=== PATIENT | female | born 1970 | race Caucasian/White ===

== ENCOUNTER 2016-12-26 17:42 | Inpatient (IN) | payer OTHER ==
[~2016-12-26] VITALS: Ht 152.4 cm; Wt 41.2 kg
[~2016-12-26 17:42] MED LIST: CPR500 PO; DIME50TA49 PO; FLV1 PO; IBUP-1050 PO; NCDT21 TD
[2016-12-26 18:53] LABS: HEMATOCRIT 34.7 % (37-47); MEAN CELL VOLUME 94.6 fL (80-100); MEAN CORPUSCULAR HEMOGLOBIN 32.4 pg (25-34); MEAN CORPUSCULAR HGB CONC 34.3 g/dl (32-36); MEAN PLATELET VOLUME 9.9 fL (7.4-10.4); PLATELET COUNT 425 K/uL (130-400); RED BLOOD COUNT 3.67 M/uL (4.2-5.4); WHITE BLOOD COUNT 19.73 K/uL (4.8-10.8)
[2016-12-26 19:16] LABS: URINE APPEARANCE CLOUDY (CLEAR); URINE BILIRUBIN NEG (NEG); URINE COLOR YELLOW; URINE NITRITE NEG (NEG); UROBILINOGEN NEG (NEG); ZZUR CULT IF INDIC CLEAN CATCH NO
[2016-12-26 19:18] LABS: BASO % 0.4 %; BASO ABS # 0.07 K/uL (0-0.2); COMPLETE YES; EOS % 0.7 %; IG% 0.5 %; LYMPH % 22.3 %; MONO % 5.5 %; NEUT % 70.6 %; VACUOLIZATION 1+
[2016-12-26 19:20] LABS: MANUAL MICROSCOPIC REQUIRED? YES; REVIEW REQ? NO
[2016-12-26 19:23] LABS: BLOOD UREA NITROGEN 5 mg/dl (7-18); BUN/CREATININE RATIO 10.4 (10-20); CREATININE 0.44 mg/dl (0.60-1.20)
[2016-12-26 19:25] LABS: ALKALINE PHOSPHATASE 176 U/L (45-117); CARBON DIOXIDE 26 mmol/L (21-32); PHOSPHORUS 3.4 mg/dl (2.5-4.9)
[2016-12-26 19:28] LABS: POTASSIUM 3.4 mmol/L (3.5-5.1); SODIUM 142 mmol/L (136-145)
[2016-12-26 19:29] LABS: URINE BACTERIA NEG (NEG); URINE RBC 0-4 /hpf (0-4); URINE WBC 0 /hpf (0-5)
--- NOTE | 2016-12-26 19:30 | DIAGNOSTIC IMAGING REPORT ---
CHEST ONE VIEW PORTABLE CLINICAL HISTORY: elevated WBC dyspnea COMPARISON STUDY: 12/25/2015. FINDINGS: small right effusion. There is a superimposed right basilar infiltrate. Lungs otherwise appear clear. IMPRESSION: Small infiltrate right base. Small right effusion. Electronically signed by: Kang Benitez M.D. 12/26/2016 7:28 PM Dictated Date/Time: 12/26/2016 7:27 PM
[2016-12-26 19:31] LABS: ALT/SGPT 26 U/L (12-78); CALCIUM 8.3 mg/dl (8.5-10.1); CHLORIDE 107 mmol/L (98-107); GLUCOSE 75 mg/dl (70-99)
[2016-12-26 19:33] LABS: AST/SGOT 63 U/L (15-37); MAGNESIUM 2.1 mg/dl (1.8-2.4)
[2016-12-26] MEDS ORDERED: LEVAQUIN 750MG / 150ML D5W IV STA (19:34)
[2016-12-26] MEDS ORDERED: NICOTINE POLACRILEX 2 MG GUM MT STA (19:36)
[2016-12-26] MEDS ORDERED: NICOTINE 21 MG/24 HR TDSY TD STA (19:36)
[2016-12-26 19:42] LABS: BENZODIAZEPINE, URINE NEG (NEG); COCAINE,URINE NEG (NEG); PHENCYCLIDINE, URINE NEG (NEG)
[2016-12-26 20:19] LABS: INR 1.3 (0.9-1.1); PARTIAL THROMBOPLASTIN RATIO 1.2
--- NOTE | 2016-12-26 20:49 | DIAGNOSTIC IMAGING REPORT ---
Right upper quadrant ultrasound (LIVER) ABDOMEN LIMITED CLINICAL HISTORY: RUQ pain, fevers, ETOH use pain TECHNIQUE: Ultrasound COMPARISON STUDY: 12/26/2015 FINDINGS: Fatty infiltration of liver. Small amount of ascites. Normal gallbladder. No shadowing gallstones. Common bile duct 3 mm. Right kidney negative for hydronephrosis. Pancreas is unremarkable. IMPRESSION: 1. Fatty infiltration of liver. 2. Small amount perihepatic ascites. 3. Study is otherwise negative Electronically signed by: Kang Benitez M.D. 12/26/2016 8:48 PM Dictated Date/Time: 12/26/2016 8:46 PM
[2016-12-26] MEDS ORDERED: ONDANSETRON INJ 2 MG/ML 2 ML VIAL IV PRN (21:30)
[2016-12-26] MEDS ORDERED: MAGNESIUM HYDROXIDE SUSP 30 ML UDC PO PRN (21:30)
[2016-12-26] MEDS ORDERED: MoRPHine SULFATE 2 MG/ML CARP IV PRN (21:30)
[2016-12-26] MEDS ORDERED: CHLORDIAZEPOXIDE 25 MG CAP PO SCH (21:30)
[2016-12-26] MEDS ORDERED: LORAZEPAM 2 MG/ML 1 ML VIAL IV PRN (21:30)
[2016-12-26] MEDS ORDERED: POLYETHYLENE (MIRALAX) 17 GM PACK PO PRN (21:30)
[2016-12-26] MEDS ORDERED: ALUMINUM/MAGNESIUM/SIMETH (MAALOX MAX) 30 ML UDC PO PRN (21:30)
[2016-12-26] MEDS ORDERED: GABAPENTIN 600 MG TAB PO SCH (21:30)
[2016-12-26] MEDS ORDERED: ALBUTEROL 0.083% NEBU SOLN 3 ML VIAL INH PRN (21:45)
--- NOTE | 2016-12-26 21:54 | History and Physical ---
History & Physical Date & Time of Service: Dec 26, 2016 at 21:45 Chief Complaint: FLU Primary Care Physician: Luzma Colvin DO History of Present Illness Source: patient 46 y/o F w/Hx ETOH abuse - pt present with abdominal pain, distention, cough, fevers and rigors. She had onset of abdominal pain 10 days ago and recently developed a productive cough and fevers. She states that she has been lethargic and sleeping more than usual. The pt states that she had quit drinking for an extended period and then started again two weeks ago. She denies a history of cirrhosis. Initial workup including CXR reveals a RLL infiltrate. US of the abdomen shows fatty liver and a small amount of ascites without mention of cirrhosis. Her ETOH level is 121 on arrival. Past Medical/Surgical History 1) ETOH abuse 2) Tobacco abuse Family History Diabetes mellitus FH: lung disease FHx: cancer FHx: gallbladder disease Hypertension Kidney stones Seizures Father with Hx of CVA and self-inflicted gunshot wound to head Mother with HTN Expecting a granddaughter in 2 weeks Social History Smokes a pack daily - binge drinks with long history of ETOH abuse Smoking Status: Current Every Day Smoker Drug Use: none Marital Status: Housing status: lives with family Allergies Coded Allergies: Sulfamethoxazole w/Trimethoprim (Unverified Allergy, Severe, CHEST PAIN, ) Home Medications Scheduled PRN Ibuprofen (Advil), 200-600 MG PO Q4H PRN for Pain Review of Systems Constitutional: + chills, + fever, + sweats, + weakness, + weight loss Eyes: No eye pain, No worsening of vision ENT: No hearing loss, No nasal symptoms, No unusual epistaxis Respiratory: + cough, + sputum, No dyspnea at rest, No dyspnea on exertion, No shortness of breath, No wheezing Cardiovascular: No PND, No chest pain, No orthopnea Abdomen: + nausea, + pain, + problem reported (distention), No diarrhea, No vomiting Musculoskeletal: No joint pain, No muscle pain Genitourinary - Female: + dysuria, No urinary frequency, No urinary urgency Neurologic: + weakness, No memory loss, No paralysis Psychiatric: + depression symptoms Endocrine: + fatigue Hematologic / Lymphatic: No abnormal bleeding/bruising Integumentary: No rash Allergic / Immunologic: No environmental allergies Physical Exam Vital Signs Date Time Temp Pulse Resp B/P Pulse Ox O2 Delivery O2 Flow Rate FiO2 12/26/16 21:15 94 18 103/69 98 Room Air 12/26/16 20:05 97 20 115/75 97 Room Air 12/26/16 19:00 103 12/26/16 18:55 102 20 115/75 96 Room Air 12/26/16 17:47 37.1 108 20 171/72 98 Room Air General Appearance: WD/WN, no apparent distress Head: normocephalic, atraumatic Eyes: normal inspection, EOMI ENT: normal ENT inspection, pharynx normal Neck: supple, no JVD Respiratory/Chest: chest non-tender, lungs clear, normal breath sounds Cardiovascular: regular rate, rhythm, no edema, no gallop Back: normal inspection, no CVA tenderness, no muscle spasm Extremities/Musculoskelatal: normal inspection, no calf tenderness, normal capillary refill, no pedal edema, normal range of motion 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, no motor/sensory deficits, alert, normal mood/affect, normal reflexes, oriented x 3 Skin: normal color, warm/dry, no rash Diagnostics Laboratory Results Results Past 24 Hours Test 12/26/16 18:42 12/26/16 18:55 12/26/16 19:53 12/26/16 19:58 Range/Units White Blood Count 19.73 4.8-10.8 K/uL Red Blood Count 3.67 4.2-5.4 M/uL Hemoglobin 11.9 12.0-16.0 g/dL Hematocrit 34.7 37-47 % Mean Corpuscular Volume 94.6 80-100 fL Mean Corpuscular Hemoglobin 32.4 25-34 pg Mean Corpuscular Hemoglobin Concent 34.3 32-36 g/dl Platelet Count 425 130-400 K/uL Mean Platelet Volume 9.9 7.4-10.4 fL Neutrophils (%) (Auto) 70.6 % Lymphocytes (%) (Auto) 22.3 % Monocytes (%) (Auto) 5.5 % Eosinophils (%) (Auto) 0.7 % Basophils (%) (Auto) 0.4 % Neutrophils # (Auto) 13.93 1.4-6.5 K/uL Lymphocytes # (Auto) 4.40 1.2-3.4 K/uL Monocytes # (Auto) 1.09 0.11-0.59 K/uL Eosinophils # (Auto) 0.14 0-0.5 K/uL Basophils # (Auto) 0.07 0-0.2 K/uL RDW Standard Deviation 55.8 36.4-46.3 fL RDW Coefficient of Variation 16.2 11.5-14.5 % Immature Granulocyte % (Auto) 0.5 % Immature Granulocyte # (Auto) 0.10 0.00-0.02 K/uL Toxic Vacuolation 1+ Sodium Level 142 136-145 mmol/L Potassium Level 3.4 3.5-5.1 mmol/L Chloride Level 107 98-107 mmol/L Carbon Dioxide Level 26 21-32 mmol/L Anion Gap 9.0 3-11 mmol/L Blood Urea Nitrogen 5 7-18 mg/dl Creatinine 0.44 0.60-1.20 mg/dl Est Creatinine Clear Calc Drug Dose 104.2 ml/min Estimated GFR () 140.3 Estimated GFR (Non- 121.1 BUN/Creatinine Ratio 10.4 10-20 Random Glucose 75 70-99 mg/dl Calcium Level 8.3 8.5-10.1 mg/dl Phosphorus Level 3.4 2.5-4.9 mg/dl Magnesium Level 2.1 1.8-2.4 mg/dl Total Bilirubin 0.6 0.2-1 mg/dl Direct Bilirubin 0.3 0-0.2 mg/dl Aspartate Amino Transf (AST/SGOT) 63 15-37 U/L Alanine Aminotransferase (ALT/SGPT) 26 12-78 U/L Alkaline Phosphatase 176 45-117 U/L Ammonia 47.0 11-32 umol/L Troponin I < 0.015 0-0.045 ng/ml Total Protein 6.6 6.4-8.2 gm/dl Albumin 2.3 3.4-5.0 gm/dl Lipase 156 73-393 U/L Ethyl Alcohol mg/dL 121.0 0-3 mg/dl Urine Color YELLOW Urine Appearance CLOUDY CLEAR Urine pH 7.0 4.5-7.5 Urine Specific [place] 1.000 1.000-1.030 Urine Protein NEG NEG Urine Glucose (UA) NEG NEG Urine Ketones NEG NEG Urine Occult Blood NEG NEG Urine Nitrite NEG NEG Urine Bilirubin NEG NEG Urine Urobilinogen NEG NEG Urine Leukocyte Esterase NEG NEG Urine WBC (Auto) 0-5 /hpf Urine RBC (Auto) 0-4 /hpf Urine Hyaline Casts (Auto) 0-5 /lpf Urine Epithelial Cells (Auto) 0-5 /lpf Urine Bacteria (Auto) NEG Urine RBC 0-4 0-4 /hpf Urine WBC 0 0-5 /hpf Urine Epithelial Cells 0-5 0-5 /lpf Urine Bacteria NEG NEG Urine Test NEG NEG Urine Opiates Screen NEG NEG Urine Methadone, Qualitative NEG NEG Urine Barbiturates NEG NEG Urine Phencyclidine (PCP) Level NEG NEG Ur Amphetamine/Methamphetamine NEG NEG MDMA (Ecstasy) Screen NEG NEG Urine Benzodiazepines Screen NEG NEG Urine Cocaine Metabolite NEG NEG Urine Marijuana (THC) NEG NEG Prothrombin Time 14.0 9.0-12.0 SECONDS Prothromb Time International Ratio 1.3 0.9-1.1 Activated Partial Thromboplast Time 30.6 21.0-31.0 SECONDS Partial Thromboplastin Ratio 1.2 Bedside Lactic Acid Venous 1.87 0.90-1.70 mmol/L Microbiology Results 12/26/16 Blood Culture, Received Pending 12/26/16 Blood Culture, Received Pending Diagnostic Radiology CXR: Small infiltrate right base. Small right effusion. US liver 1. Fatty infiltration of liver. 2. Small amount perihepatic ascites. 3. Study is otherwise negative Impression Assessment and Plan 46 y/o F w/Hx ETOH abuse - pt present with abdominal pain, distention, cough, fevers and rigors. She had onset of abdominal pain 10 days ago and recently developed a productive cough and fevers. She states that she has been lethargic and sleeping more than usual. The pt states that she had quit drinking for an extended period and then started again two weeks ago. She denies a history of cirrhosis. Initial workup including CXR reveals a RLL infiltrate. US of the abdomen shows fatty liver and a small amount of ascites without mention of cirrhosis. Her ETOH level is 121 on arrival. 1) Abdominal pain - distention - fatty infiltration and ascites present - labs and ultrasound are not consistent with advanced cirrhosis. GI will be consulted - may need dedicated scan or eventual biopsy - explained to pt that ETOH cessation is of utmost importance. 2) PNM - placed on Levaquin pending blood/sputum cultures - consider changing to Unasyn/Zithro to cover aspiration if she does not improve - cindy avoid Flagyl unless an antabuse reaction is sought. 3) ETOH - placed on CIWA protocol, daily banana bag - monitor on telemetry. 4) Tobacco abuse - May have more pressing issues at present however cessation advice will be offered. Ful code - SCDs only due to fall risk Total time for this admit including review of labs, meds, imaging - discussion with pt and ER attending - 36 min Level of Care Telemetry Resuscitation Status FULL RESUSCITATION VTE Prophylaxis VTE Risk Assessment Done? Y/N: Yes Risk Level: Low Given or contraindicated: Unfractionated heparin SQ
[2016-12-26] MEDS: ALBUT/IPRATROP 3MG/0.5MG NEB 3 ML VIAL INH SCH (22:15)
--- NOTE | 2016-12-26 22:27 | EMERGENCY ROOM VISIT NOTE ---
History Report prepared by Fabricio: Jasmyn Berg Under the Supervision of: Dr. Juan Melvin M.D. First contact with patient: 18:22 Chief Complaint: ABDOMINAL PAIN Stated Complaint: FLU History of Present Illness The patient is a 46 year old female who presents to the Emergency Room with complaints of persistent abdominal pain for 1.5 weeks. She is a recovering alcoholic, who has been drinking for the past couple of weeks because of events that have occurred in her life. Her stomach is swollen and she has been sleeping a lot more than usual. She reports that she has a fever, dysuria, and has been shaking. She has been taking ibuprofen and hydrocodone for her pain. She denies having any history of cirrhosis of the liver. She denies any history of hepatitis or any liver problems. Source of History: patient Onset: 1.5 weeks ago Position: abdomen Timing: other (persistent) Modifying Factors (Relieving): ibuprofen, narcotics Associated Symptoms: + fevers, + urinary symptoms (dysuria) Note: Pt reports being shaky and stomach swelling. Review of Systems See HPI for pertinent positives & negatives. A total of 10 systems reviewed and were otherwise negative. Past Medical & Surgical Medical Problems: (1) Abdominal pain (2) Alcohol withdrawal (3) Asthma (4) Bronchitis (5) Diabetes (6) Heart disease (7) Hypertension (8) Pneumonia (9) Pneumonia Family History Diabetes mellitus FH: lung disease FHx: cancer FHx: gallbladder disease Hypertension Kidney stones Seizures Social History Smoking Status: Current Every Day Smoker Alcohol Use: heavy Drug Use: none Marital Status: Housing Status: lives with family Current/Historical Medications Scheduled PRN Ibuprofen (Advil), 200-600 MG PO Q4H PRN for Pain Allergies Coded Allergies: Sulfamethoxazole w/Trimethoprim (Unverified Allergy, Severe, CHEST PAIN, ) Physical Exam Vital Signs Date Time Temp Pulse Resp B/P Pulse Ox O2 Delivery O2 Flow Rate FiO2 12/26/16 21:15 94 18 103/69 98 Room Air 12/26/16 20:05 97 20 115/75 97 Room Air 12/26/16 19:00 103 12/26/16 18:55 102 20 115/75 96 Room Air 12/26/16 17:47 37.1 108 20 171/72 98 Room Air Physical Exam GENERAL: Patient is ill - appearing, chronically unwell, and in mild distress. Smells of alcohol. HEENT: No acute trauma, normocephalic atraumatic, mucous membranes moist, no nasal congestion, no scleral icterus. NECK: No stridor, no adenopathy, no meningismus, trachea is midline. LUNGS: No dyspnea. Clear to auscultation and equal bilaterally. No wheeze, no rhonchi. HEART: Regular rate and rhythm. No murmurs, rubs, gallops appreciated. ABDOMEN: Distended, fluid-filled abdomen, mild RUQ tenderness to palpation, bowel sounds positive, large palpable liver, no peritonitis. BACK: No midline tenderness, no CVA tenderness EXTREMITIES: Normal motion all extremities, no cyanosis, no edema. NEUROLOGIC: Alert and oriented, no acute motor or sensory deficits, no focal weakness, cranial nerves grossly intact. SKIN: No rash, mildly jaundiced, no diaphoresis. Telangiectasia under the eyes. Medical Decision & Procedures ER Provider Diagnostic Interpretation: X ray results are stated below per my interpretation and the radiologist's interpretation. Radiology results and stated below per my review and radiologist interpretation: CHEST ONE VIEW PORTABLE CLINICAL HISTORY: elevated WBC dyspnea COMPARISON STUDY: 12/25/2015. FINDINGS: small right effusion. There is a superimposed right basilar infiltrate. Lungs otherwise appear clear. IMPRESSION: Small infiltrate right base. Small right effusion. Electronically signed by: Kang Benitez M.D. 12/26/2016 7:28 PM Dictated Date/Time: 12/26/2016 7:27 PM Right upper quadrant ultrasound (LIVER) ABDOMEN LIMITED CLINICAL HISTORY: RUQ pain, fevers, ETOH use pain TECHNIQUE: Ultrasound COMPARISON STUDY: 12/26/2015 FINDINGS: Fatty infiltration of liver. Small amount of ascites. Normal gallbladder. No shadowing gallstones. Common bile duct 3 mm. Right kidney negative for hydronephrosis. Pancreas is unremarkable. IMPRESSION: 1. Fatty infiltration of liver. 2. Small amount perihepatic ascites. 3. Study is otherwise negative Electronically signed by: Kang Benitez M.D. 12/26/2016 8:48 PM Dictated Date/Time: 12/26/2016 8:46 PM Laboratory Results 12/26/16 18:42 Red Blood Count 3.67, Mean Corpuscular Volume 94.6, Mean Corpuscular Hemoglobin 32.4, Mean Corpuscular Hemoglobin Concent 34.3, Mean Platelet Volume 9.9, Neutrophils (%) (Auto) 70.6, Lymphocytes (%) (Auto) 22.3, Monocytes (%) (Auto) 5.5, Eosinophils (%) (Auto) 0.7, Basophils (%) (Auto) 0.4, Neutrophils # (Auto) 13.93, Lymphocytes # (Auto) 4.40, Monocytes # (Auto) 1.09, Eosinophils # (Auto) 0.14, Basophils # (Auto) 0.07 12/26/16 18:42 Test 12/26/16 18:42 12/26/16 18:55 12/26/16 19:53 12/26/16 19:58 White Blood Count 19.73 K/uL (4.8-10.8) Red Blood Count 3.67 M/uL (4.2-5.4) Hemoglobin 11.9 g/dL (12.0-16.0) Hematocrit 34.7 % (37-47) Mean Corpuscular Volume 94.6 fL (80-100) Mean Corpuscular Hemoglobin 32.4 pg (25-34) Mean Corpuscular Hemoglobin Concent 34.3 g/dl (32-36) Platelet Count 425 K/uL (130-400) Mean Platelet Volume 9.9 fL (7.4-10.4) Neutrophils (%) (Auto) 70.6 % Lymphocytes (%) (Auto) 22.3 % Monocytes (%) (Auto) 5.5 % Eosinophils (%) (Auto) 0.7 % Basophils (%) (Auto) 0.4 % Neutrophils # (Auto) 13.93 K/uL (1.4-6.5) Lymphocytes # (Auto) 4.40 K/uL (1.2-3.4) Monocytes # (Auto) 1.09 K/uL (0.11-0.59) Eosinophils # (Auto) 0.14 K/uL (0-0.5) Basophils # (Auto) 0.07 K/uL (0-0.2) RDW Standard Deviation 55.8 fL (36.4-46.3) RDW Coefficient of Variation 16.2 % (11.5-14.5) Immature Granulocyte % (Auto) 0.5 % Immature Granulocyte # (Auto) 0.10 K/uL (0.00-0.02) Toxic Vacuolation 1+ Anion Gap 9.0 mmol/L (3-11) Est Creatinine Clear Calc Drug Dose 104.2 ml/min Estimated GFR () 140.3 Estimated GFR (Non- 121.1 BUN/Creatinine Ratio 10.4 (10-20) Calcium Level 8.3 mg/dl (8.5-10.1) Phosphorus Level 3.4 mg/dl (2.5-4.9) Magnesium Level 2.1 mg/dl (1.8-2.4) Total Bilirubin 0.6 mg/dl (0.2-1) Direct Bilirubin 0.3 mg/dl (0-0.2) Aspartate Amino Transf (AST/SGOT) 63 U/L (15-37) Alanine Aminotransferase (ALT/SGPT) 26 U/L (12-78) Alkaline Phosphatase 176 U/L (45-117) Ammonia 47.0 umol/L (11-32) Troponin I < 0.015 ng/ml (0-0.045) Total Protein 6.6 gm/dl (6.4-8.2) Albumin 2.3 gm/dl (3.4-5.0) Lipase 156 U/L (73-393) Ethyl Alcohol mg/dL 121.0 mg/dl (0-3) Urine Color YELLOW Urine Appearance CLOUDY (CLEAR) Urine pH 7.0 (4.5-7.5) Urine Specific [place] 1.000 (1.000-1.030) Urine Protein NEG (NEG) Urine Glucose (UA) NEG (NEG) Urine Ketones NEG (NEG) Urine Occult Blood NEG (NEG) Urine Nitrite NEG (NEG) Urine Bilirubin NEG (NEG) Urine Urobilinogen NEG (NEG) Urine Leukocyte Esterase NEG (NEG) Urine WBC (Auto) /hpf (0-5) Urine RBC (Auto) /hpf (0-4) Urine Hyaline Casts (Auto) /lpf (0-5) Urine Epithelial Cells (Auto) /lpf (0-5) Urine Bacteria (Auto) (NEG) Urine RBC 0-4 /hpf (0-4) Urine WBC 0 /hpf (0-5) Urine Epithelial Cells 0-5 /lpf (0-5) Urine Bacteria NEG (NEG) Urine Test NEG (NEG) Urine Opiates Screen NEG (NEG) Urine Methadone, Qualitative NEG (NEG) Urine Barbiturates NEG (NEG) Urine Phencyclidine (PCP) Level NEG (NEG) Ur Amphetamine/Methamphetamine NEG (NEG) MDMA (Ecstasy) Screen NEG (NEG) Urine Benzodiazepines Screen NEG (NEG) Urine Cocaine Metabolite NEG (NEG) Urine Marijuana (THC) NEG (NEG) Prothrombin Time 14.0 SECONDS (9.0-12.0) Prothromb Time International Ratio 1.3 (0.9-1.1) Activated Partial Thromboplast Time 30.6 SECONDS (21.0-31.0) Partial Thromboplastin Ratio 1.2 Bedside Lactic Acid Venous 1.87 mmol/L (0.90-1.70) Laboratory results as reviewed by me. Medications Administered Medications (Trade) Dose Ordered Sig/Cayla Route Start Time Stop Time Status Last Admin Dose Admin Levofloxacin (Levaquin / D5W) 750 mg NOW STAT IV 12/26/16 19:34 12/26/16 19:35 DC 12/26/16 20:02 750 MG Nicotine (Nicoderm Cq 21MG Patch) 1 patch NOW STAT TD 12/26/16 19:36 12/26/16 19:37 DC 12/26/16 20:02 1 PATCH Nicotine Polacrilex (Nicorette 2MG Gum) 1 piece NOW STAT MT 12/26/16 19:36 12/26/16 19:37 DC 12/26/16 20:02 1 PIECE ECG Indication: abdominal pain Rate (beats per minute): 106 Rhythm: sinus tachycardia Findings: nonspecific-ST abn, other (no STEMI, shaky baseline, QTC 475) ED Course 1823: The patient was evaluated in room B3. A complete history and physical exam was performed. 1929: I reevaluated the patient. She is doing fine. She is requesting a nicotine patch and nicotine gum. 1933: Levofloxacin 750 mg IV. 1935: Nicotine Polacrilex 1 piece MT, Nicotine 1 patch TD. 1947: I discussed the patient's case with Dr. Laureano, [facility] [place] - hospitalist. She will be evaluated for further management. 1951: Upon reevaluation, the patient is resting comfortable. Discussed results and treatment plan with the patient. She verbalized understanding and agreement with the treatment plan. The patient will be evaluated for further management. Medical Decision Differential: Sepsis, Infectious (UTI/Pneumonia/Meningitis/etc), Metabolic/ Electrolyte Abnormality, Cardiac, Hepatic, Endocrine, Toxicologic, Neurologic, amongst other pathologies entertained. 46 yr old female alcoholic arrives for evaluation of not feeling well, abdominal swelling and fatigue. Admits increased ETOH over last few weeks due to stress. She has palpable liver with moderate amount of abdominal ascites. She does not have peritonitis nor exam consistent with SBP. She does have some RUQ TTP for which US ordered though she does not have surgical abdomen. WBC quite elevated and CXR with RLL infiltrate. Levaquin given she is alcoholic for pna and may require other abx as well. She is not septic shock though with tachycardia, wbc elevation and source of infection she is early sepsis. Lactic acid just mildly elevated likely infection and liver issue related. Not quite in liver failure though already with mild INR bump. Will bring in for further work-up and evaluation. Consults Time Called: 1946 Consulting Physician: Dr. Laureano [facility] [place] - hospitalist Returned Call: 1951 Discussed the patient's case. The patient will be evaluated for further treatment and disposition. Impression Primary Impression: Pneumonia Additional Impressions: Sepsis Alcoholism Cirrhosis Scribe Attestation The scribe's documentation has been prepared under my direction and personally reviewed by me in its entirety. I confirm that the note above accurately reflects all work, treatment, procedures, and medical decision making performed by me. Departure Information Dispostion Being Evaluated By Hospitalist Referrals No Doctor, Assigned (PCP) Patient Instructions My [facility] Problem Qualifiers Primary Impression: Pneumonia Pneumonia type: due to unspecified organism Laterality: right Lung location : lower lobe of lung Qualified Codes: J18.1 - Lobar pneumonia, unspecified organism Additional Impressions: Sepsis Sepsis type: sepsis due to unspecified organism Qualified Codes: A41.9 - Sepsis, unspecified organism Cirrhosis Hepatic cirrhosis type: alcoholic cirrhosis Ascites presence: with ascites Qualified Codes: K70.31 - Alcoholic cirrhosis of liver with ascites
[2016-12-26 22:55] VITALS: BP 116/68; PULSE 100; TEMP 37; O2SAT 96; Ht 152.4 cm; Wt 41.2 kg
[2016-12-26] MEDS ORDERED: MULTI-VITAMIN INFUSION INJ 10 ML, THIAMINE HCL INJ 100 MG, FoLIC ACID INJ 1 MG in SODIU... IV ONE (23:15)
[2016-12-26] MEDS ORDERED: GABAPENTIN 250 MG/5 ML 470 ML BTL PO SCH (23:15)
[2016-12-26] MEDS ORDERED: LEVOFLOXACIN CONSULT ACTIVE PRN (23:15)
[2016-12-26 23:33] VITALS: BP 105/70; PULSE 105; TEMP 37; O2SAT 96
[2016-12-27] VITALS (16 sets, daily range): BP systolic 104–128; BP diastolic 64–79; PULSE 83–102; TEMP 36.7–37.1; O2SAT 94–98
[2016-12-27] MEDS: CHLORDIAZEPOXIDE 25MG 1ST DOSE PO SCH ×4 (01:21→18:04)
[2016-12-27] MEDS: ALBUT/IPRATROP 3MG/0.5MG NEB 3 ML VIAL INH SCH ×4 (01:35→19:32)
[2016-12-27] MEDS ORDERED: MoRPHine SULFATE 2 MG/ML CARP IV PRN (04:00)
[2016-12-27 06:09] LABS: HEMATOCRIT 29.6 % (37-47); MEAN CELL VOLUME 92.8 fL (80-100); MEAN CORPUSCULAR HGB CONC 33.4 g/dl (32-36); MEAN PLATELET VOLUME 9.4 fL (7.4-10.4); PLATELET COUNT 357 K/uL (130-400); RED BLOOD COUNT 3.19 M/uL (4.2-5.4); WHITE BLOOD COUNT 12.78 K/uL (4.8-10.8)
[2016-12-27 06:48] LABS: BUN/CREATININE RATIO 9.5 (10-20); CALCIUM 7.4 mg/dl (8.5-10.1); CREATININE 0.44 mg/dl (0.60-1.20); MAGNESIUM 1.6 mg/dl (1.8-2.4); POTASSIUM 3.6 mmol/L (3.5-5.1)
[2016-12-27] MEDS ORDERED: INFLUENZA VIRUS QUAD VACCINE 0.5 ML SYR IM. ONE (08:00)
[2016-12-27] MEDS ORDERED: INFLUENZA ADMINISTRATION CHARGE ONE (08:00)
[2016-12-27] MEDS ORDERED: HEPARIN SOD 5000 UNIT/0.5 ML CARP SQ SCH (09:00)
[2016-12-27] MEDS ORDERED: THIAMINE HCL INJ 200 MG in SODIUM CHLORIDE 0.9% 50ML 50 ML IV SCH (09:00)
[2016-12-27] MEDS ORDERED: CEROVITE ADV FORMULA TAB PO SCH (09:00)
[2016-12-27] MEDS: MAGNESIUM SULFATE 1GM / D5W 1 GM in PREMIXED IN D5W 100 ML IV SCH ×2 (10:53→12:04)
--- NOTE | 2016-12-27 17:02 | GASTROINTESTINAL CONSULTATION ---
DATE OF CONSULTATION: 12/27/2016 REFERRED BY: Dr. Lind. HISTORY OF PRESENT ILLNESS: I was asked by Dr. Lind to consult on this woman for evaluation of abnormal liver enzymes and cirrhosis. The patient is a 46-year-old who presented because of abdominal distention, weakness, and cough. She has a long history of alcohol abuse and she has become more lethargic, sleepy and noticed that her stomach was getting slightly distended and she sought medical attention. Upon initial workup in the Emergency Room her ETOH level was 121. She has tried numerous times to stop drinking and sometimes gone numerous months but often resumes after life stressors. She denies any history of alcohol withdrawal. She denies any previous history of abdominal distention or lower extremity edema. She has had no GI bleeding. She denies any history of IV drug use or blood transfusions. She has never been told of any liver disease in the past besides that which is related to alcohol. PAST MEDICAL HISTORY: I reviewed her medical records and past medical history and her past medical history is significant for what is already mentioned. FAMILY HISTORY: Negative for gastrointestinal and liver disease. SOCIAL HISTORY: Significant for smoking a pack a day and alcohol abuse. ALLERGIES: INCLUDE SULFAMETHOXAZOLE WITH TRIMETHOPRIM. HOME MEDICATIONS: Just p.r.n. ibuprofen. REVIEW OF SYSTEMS: As above, otherwise she has had some sweats and chills and some weight loss. She denies any change in vision or hearing. She has had no seizures. She denies any productive cough, but she has had a dry cough. She denies any palpitations. She denies any chest pain on exertion. She has had some nausea and abdominal pain. She denies dysphagia. She has had no rectal bleeding. She has had no urinary bleeding. She denies any joint swelling or pain. Denies any memory loss and she states she has had no recent depression. PHYSICAL EXAMINATION: GENERAL: Reveals a thin woman tearful, lying in bed. VITAL SIGNS: Her most recent temperature is 36.7, pulse is 92, blood pressure is 113/72. SKIN: Anicteric. HEENT: Eyes show anicteric sclerae. Pupils equal, reactive to light. Mouth is clear of lesions. Skin on her face shows numerous spider angiomata. NECK: Supple, no adenopathy. CHEST: Has some scattered rhonchi, but is otherwise clear. HEART: Regular rate and rhythm. ABDOMEN: Slightly distended but by no means tense. She has no gross fluid wave. She has no rebound tenderness. No masses and she has good bowel sounds. EXTREMITIES: Thin but warm with fair distal pulses. NEUROLOGIC: She is grossly intact and alert and oriented x3. LABORATORY DATA: Show a total bilirubin of 0.8, direct bilirubin is 0.3, AST of 48, ALT of 17, alkaline phosphatase 139, albumin 1.8. White blood cell count of 12.7, hemoglobin of 9.9, platelet count of 357,000. An abdominal imaging reveals small amount of perihepatic ascites, fatty infiltration of the liver. IMPRESSION: A 46-year-old woman with alcoholic liver disease. It is unclear how much of this liver disease is related to cirrhosis which will not improve versus non-cirrhotic alcoholic liver disease which has a chance of some improvement. I highly doubt this is infectious hepatitis and she does not take any other outpatient medications except for some p.r.n. ibuprofen, so I highly doubt this is drug hepatitis. Certainly her abdominal distention is related to a low level of ascites because she is so thin this is readily apparent. Again, I think this is again related to her liver disease. At this point, I would just make sure she is negative for hepatitis B and C, watch for withdrawals from alcohol and I had a long talk with her that alcohol avoidance is the mainstay of treatment at this point. There is a chance that she has significant amount of liver parenchyma that is viable, but this will not be known unless she stops drinking for a year. I do not think she needs diuretics at this point. She should follow up as an outpatient. EMILY
[2016-12-27] MEDS ORDERED: FLV1 PO (18:45)
[2016-12-27] MEDS ORDERED: THM100 PO (18:45)
[2016-12-27] MEDS ORDERED: LBR25 PO (18:45)
[2016-12-27] MEDS ORDERED: LEVO500T19 PO (18:45)
[2016-12-27] MEDS ORDERED: CNT PO (18:45)
--- NOTE | 2016-12-27 18:56 | Discharge Instructions ---
Discharge Instructions Date of Service Dec 27, 2016. Admission Reason for Admission: Right-sided pneumonia Concern for cirrhosis Discharge Discharge Diagnosis / Problem: 1. right sided pneumonia 2. liver disease, concern for cirrhosis Discharge Goals Goal(s): Improve disease control, Learn about illness, Diagnostic testing, Therapeutic intervention Activity Recommendations Activity Limitations: as noted below Lifting Limitations: gradually increase as tolerated Exercise/Sports Limitations: gradually increase as tolerated Shower/Bathe: no limitations Driving or Machine Use: resume 1 day after discharge . Instructions / Follow-Up Instructions / Follow-Up From Dr. Lind - 1. Please abstain from all alcohol. 2. For the next 6 days - starting Wednesday12/28/16 - take a librium taper. This will help with anxiety as you stop your alcohol use. If you resume drinking STOP the librium. Take as follows - * 25mg tablet three times a day for 2 days THEN, * 25mg tablet twice daily for 2 days THEN, * 25mg tablet once daily for 2 days THEN STOP 3. STOP tylenol use. Occasional motrin/ibuprofen for pain is permissible. 4. For the pneumonia - * take levaquin (levofloxacin) 500mg once daily for 8 days; begin tomorrow on * prescription sent to [facility] * may take uthy-cra-zyvebgu mucinex up to twice daily for cough if desired 5. For overall health and to improve your nutrition take - * Multivitamin once daily; prescription sent to the pharmacy for you * thiamine 200mg twice daily for 30 days; prescription sent to the pharmacy for you * folic acid 1mg once daily for 30 days; prescription sent to the pharmacy for you 6. Ascites/fluid in your abdomen - * if you find that the fluid is getting worse, you are developing swelling in your legs/ankles, or you are having a difficult time breathing see Dr. Oviedo 's office as soon as possible OR report back to the ER at [facility] 7. Take a magnesium supplement once daily for 7 days. Prescription sent to your pharmacy. 8. Watch your total salt intake. Too much salt intake will make your fluid in the belly worse. Limit salt to 2000mg daily. Avoid fried foods, fast foods, TV dinners, soups, etc. 9. Watch your total fluid intake. Too much fluid will make your fluid in the belly worse. Limit your total fluids daily to about 1500-1800ml a day. 10. Follow-up appointments - * see Dr. High (now Vinicius) within 3 days * see Norberto Posey, within 7-10 days Current Hospital Diet Patient's current hospital diet: Regular Diet Discharge Diet Recommended Diet: Low Sodium Diet (2gm Na) Fluid Restriction: 1800 ml (7 cups) Procedures Procedures Performed: 1. ultrasound of the liver - ascites seen (fluid in the abdomen). 2. chest x-ray - right lower lobe pneumonia Pending Studies Studies pending at discharge: no Medical Emergencies . Who to Call and When: Medical Emergencies: If at any time you feel your situation is an emergency, please call 911 immediately. . Non-Emergent Contact Non-Emergency issues call your: Primary Care Provider Call Non-Emergent contact if: temperature is above 100.5, your pain is not controlled, your pain is worsening, your pain is unusual for you, your pain is concerning you, you have any medication questions . . "Provider Documentation" section prepared by Jordin Lind. VTE Core Measure Inpt VTE Proph given/why not?: Unfractionated heparin SQ
[2016-12-27] MEDS ORDERED: MGNO400 PO (18:58)
[2016-12-27 19:46] LABS: INFLUENZA A PCR Neg for Influ A (NEG); INFLUENZA B PCR Neg for Influ B (NEG)
[2016-12-27] MEDS ORDERED: LEVOFLOXACIN / D5W 750 MG in PREMIXED IN D5W 150 ML IV SCH (20:00)
[2016-12-28] MEDS ORDERED: CHLORDIAZEPOXIDE 25MG Q8H DOSE PO SCH
[2016-12-29] MEDS ORDERED: CHLORDIAZEPOXIDE 10MG Q8H DOSE PO SCH
[2016-12-30] MEDS ORDERED: CHLORDIAZEPOXIDE 5MG Q12H DOSE PO SCH (06:00)
--- NOTE | 2016-12-30 23:44 | Discharge Summary ---
Discharge Summary Date of Service Dec 30, 2016. Discharge Summary Admission Date: Dec 26, 2016 at 21:34 Discharge Date: Dec 27, 2016 Discharge Disposition: Home Principal Diagnosis: RLL community-acquired pneumonia Problems/Secondary Diagnoses: 1. alcoholism 2. alcohol intoxication 3. either early cirrhosis vs acute alcoholic hepatitis 4. hypomagnesemia 5. tobacco dependence Procedures: Liver ultrasound: FINDINGS: Fatty infiltration of liver. Small amount of ascites. Normal gallbladder. No shadowing gallstones. Common bile duct 3 mm. Right kidney negative for hydronephrosis. Pancreas is unremarkable. IMPRESSION: 1. Fatty infiltration of liver. 2. Small amount perihepatic ascites. 3. Study is otherwise negative Consultations: gastroenterology - Julio Ovideo MD Medication Reconciliation New Medications: Levofloxacin (Levaquin) 500 Mg Tab 1 TAB PO DAILY for 8 Days, #8 TAB 0 Refills start 12/28/16 Magnesium Oxide (Magnesium-Oxide) 400 Mg Tab 400 MG PO DAILY for 7 Days, #7 TABS 0 Refills Thiamine HCl (Vitamin B-1) 100 Mg Tab 200 MG PO BID for 30 Days, #120 TABS 0 Refills Chlordiazepoxide (Chlordiazepoxide HCl) 25 Mg Cap 25 MG PO DIRECTED, #12 CAP 0 Refills start AM of 12/28/16: take 1 tab TID x 2 days, then 1 tab BID x 2 days, then 1 tab QAM x 2 days, then stop. Folic Acid (Folic Acid) 1 Mg Tab 1 MG PO QAM, #30 TAB 0 Refills Multivitamins/Minerals (Certavite/Antioxidants) 1 Tab Tab 1 TAB PO QAM, #90 TAB 3 Refills Continued Medications: Ibuprofen (Advil) 200 Mg Tab 200-600 MG PO Q4H PRN for Pain, TAB Referrals At Discharge Follow up Referrals: Family Practice Referral - First Available with Luzma Colvin DO [employer] Referral - Within 1-2 Weeks with Julio Oviedo MD Discharge Exam Physical Exam: General Appearance: no apparent distress, + thin, + pertinent finding ( anxious) ENT: pharynx normal Neck: no JVD Respiratory/Chest: no respiratory distress, no accessory muscle use, + decreased breath sounds (right base), + crackles (minimal, right base) Cardiovascular: regular rate, rhythm, no gallop, no murmur, normal peripheral pulses Abdomen / GI: normal bowel sounds, soft, + distended (with ascites), + hepatomegaly, + splenomegaly Extremities: no pedal edema Neurologic/Psychiatric: alert, oriented x 3, + pertinent finding (no asterixis ) Skin: + pertinent finding (no jaundice; scattered telangiectasias upper body ) Hospital Course HISTORY OF PRESENT ILLNESS: 46yo female with history of alcohol abuse and tobacco dependence who presented with abdominal pain, abdominal distention, cough, fevers and rigors. She had onset of abdominal pain 10 days ago and recently developed a productive cough and fevers. She stated that she had been lethargic and sleeping more than usual. The patient stated that she had quit drinking for an extended period and then started again two weeks ago due to multiple psychosocial stressors. She denied a history of cirrhosis. Initial workup including chest x-ray revealed a RLL infiltrate. Ultrasound of the abdomen showed fatty liver and a small amount of ascites without mention of cirrhosis. Her ETOH level was 121 on arrival. HOSPITAL COURSE: The patient was treated for RLL community-acquired pneumonia with standard antibiotics and other supportive care measures. Blood cultures remained negative while here. Influenza testing was negative. Of more concern was the status of her liver. Liver function tests and INR were concerning for chronic liver disease. Abdominal u/s showed findings as noted above. She had no evidence of clinical SBP on physical exam. She was seen in consult by Dr. Preet Little, who recommended close follow-up after discharge. She was counseled by multiple providers to abstain from ALL ALCOHOL CONSUMPTION. Fortunately there were no signs of alcohol withdrawal while hospitalized. She will complete a course of antibiotics for her pneumonia after discharge. She was NOT started on propranolol, lactulose, or diuretic therapy for her liver disease at time of discharge. PCP - at time of hospital follow-up please repeat chemistries and liver function tests for stability. Total Time Spent: Greater than 30 minutes This includes examination of the patient, discharge planning, medication reconciliation, and communication with other providers. Discharge Instructions Please refer to the electronic Patient Visit Report (Discharge Instructions) for additional information. Follow-Up 1. Dr. Luzma Colvin, PCP, within [address] Julio Oviedo, Norberto SOUZA, within 1-2 weeks or first available Additional Copies To Luzma Colvin DO; Julio Oviedo MD
== END 2016-12-27 19:41 | disposition home or self-care (01) | DRG 195 ==
LOC: ENRESERVDT → ENRESERVTM → C.EDB 17:43 → UNDOADMIN 21:34 → C.MSICU 21:34
PROVIDERS: ADMIT Internal Medicine; ATTEND Internal Medicine
DX: J18.9 Pneumonia, unspecified organism (principal); K76.0 Fatty (change of) liver, not elsewhere classified; K74.60 Unspecified cirrhosis of liver; F17.210 Nicotine dependence, cigarettes, uncomplicated; R10.9 Unspecified abdominal pain; F10.229 Alcohol dependence with intoxication, unspecified; Y90.6 Blood alcohol level of 120-199 mg/100 ml; K70.10 Alcoholic hepatitis without ascites; E83.42 Hypomagnesemia; Z87.09 Personal history of other diseases of the respiratory system; Z86.79 Personal history of other diseases of the circulatory system; Z83.3 Family history of diabetes mellitus

== ENCOUNTER 2018-10-30 15:36 | Inpatient (IN) ==
[2018-10-30 16:37] LABS: Appearance Urine Cloudy (Clear); Bilirubin Urine Negative (Negative); Color Urine Yellow; Glucose Urine UA Negative (Negative); Ketones Urine Negative (Negative); Leukocyte Esterase Urine Negative (Negative); Nitrite Urine Negative (Negative); Protein Urine Negative (Negative); Specific Gravity Urine 1.006 (1.000-1.030); Urobilinogen Urine Negative (Negative)
[2018-10-30 16:58] LABS: INR 1.3 (0.9-1.1); Prothrombin Time 12.9 Seconds (9.0-12.0)
[2018-10-30 17:00] LABS: Hematocrit (blood only) 38.2 % (37-47); Hemoglobin 13.3 g/dL (12.0-16.0); Mean Corpuscular Hgb Conc 34.8 g/dL (32-36); Mean Corpuscular Volume 98.7 fL (80-100); Mean Platelet Volume 10.4 fL (7.4-10.4); Platelet Count 421 K/uL (130-400); RDW Coefficient of Variation 15.3 % (11.5-14.5); RDW Standard Deviation 54.7 fL (36.4-46.3); Red Blood Count 3.87 M/uL (4.2-5.4); White Blood Count 33.32 K/uL (4.8-10.8)
[2018-10-30 17:01] LABS: Bacteria Urine Automated 2+ (Negative); Cast Urine Automated 0 /lpf (0-5); Epithelial Cell Urine Auto 0-5 /lpf (0-5)
[2018-10-30 17:03] LABS: Alanine Aminotransferase 27 U/L (12-78); Albumin Level 2.2 gm/dl (3.4-5.0); Aspartate Aminotransferase 82 U/L (15-37); BUN Creatinine Ratio 5.6 (10-20); Blood Urea Nitrogen 2 mg/dl (7-18); Calcium 8.3 mg/dl (8.5-10.1); Carbon Dioxide 22 mmol/L (21-32); Chloride 99 mmol/L (98-107); Est GFR (African American) 141.6; Est GFR (Non-African American) 122.2; Glucose 105 mg/dl (70-99); Potassium 2.9 mmol/L (3.5-5.1); Sodium 135 mmol/L (136-145)
[2018-10-30 17:06] LABS: Albumin Globulin Ratio 0.4 (0.9-2); Alkaline Phosphatase 312 U/L (45-117); Bilirubin,Total 0.5 mg/dl (0.2-1); Total Protein 7.2 gm/dl (6.4-8.2)
[2018-10-30 17:10] LABS: ALC (manual) 4.33 K/uL (1.2-3.4); Basophils % (manual) 0.9 %; Lymphocytes # (manual) 4.33 K/uL (1.2-3.4); Monocytes # (manual) 1.43 K/uL (0.11-0.59); Monocytes % (manual) 4.3 %; Neutrophils % (manual) 80.9 %; Target Cells 1+
[2018-10-31 05:58] LABS: Basophils # (auto) 0.09 K/uL (0-0.2); Basophils % (auto) 0.5 %; Eosinophils # (auto) 0.28 K/uL (0-0.5); Eosinophils % (auto) 1.4 %; Hematocrit (blood only) 31.6 % (37-47); Hemoglobin 10.5 g/dL (12.0-16.0); Immature Granulocytes # (auto) 0.11 K/uL (0.00-0.02); Immature Granulocytes % (auto) 0.6 %; Lymphocytes % (auto) 22.6 %; Mean Corpuscular Hgb Conc 33.2 g/dL (32-36); Mean Corpuscular Volume 99.7 fL (80-100); Mean Platelet Volume 10.1 fL (7.4-10.4); Monocytes # (auto) 1.62 K/uL (0.11-0.59); Monocytes % (auto) 8.1 %; Neutrophils # (auto) 13.33 K/uL (1.4-6.5); Neutrophils % (auto) 66.8 %; Platelet Count 349 K/uL (130-400); RDW Coefficient of Variation 15.3 % (11.5-14.5); RDW Standard Deviation 55.7 fL (36.4-46.3); Red Blood Count 3.17 M/uL (4.2-5.4); White Blood Count 19.93 K/uL (4.8-10.8)
[2018-10-31 06:06] LABS: INR 1.3 (0.9-1.1); Prothrombin Time 13.2 Seconds (9.0-12.0)
[2018-10-31 06:21] LABS: Albumin Globulin Ratio 0.5 (0.9-2); Albumin Level 1.8 gm/dl (3.4-5.0); BUN Creatinine Ratio 4.2 (10-20); Bilirubin,Total 0.7 mg/dl (0.2-1); Calcium 7.6 mg/dl (8.5-10.1); Creatinine Clr Calc Pharmacy 102.3 ml/min; Est GFR (African American) 137.3; Est GFR (Non-African American) 118.5; Globulin 3.6 gm/dl (2.5-4.0); Magnesium 1.6 mg/dl (1.8-2.4); Potassium 3.8 mmol/L (3.5-5.1); Total Protein 5.4 gm/dl (6.4-8.2)
[2018-10-31 13:46] LABS: Mononuclear WBC Peritoneal 91.7 %; Polynuclear WBC Peritoneal 8.3 %; RBC Peritoneal Fluid (A) < 3000 /uL; WBC Peritoneal Fluid (A) 454 /ul (0-300)
[2018-10-31 16:14] LABS: Glucose Peritoneal Fluid 93 mg/dl
[2018-10-31 16:23] LABS: LDH Peritoneal Fluid 46 IU; Total Protein Peritoneal Fluid 2.3 g/dl
[2018-11-01 06:42] LABS: Basophils # (auto) 0.08 K/uL (0-0.2); Basophils % (auto) 0.5 %; Eosinophils # (auto) 0.32 K/uL (0-0.5); Eosinophils % (auto) 1.8 %; Hematocrit (blood only) 32.2 % (37-47); Hemoglobin 10.5 g/dL (12.0-16.0); Immature Granulocytes % (auto) 0.6 %; Lymphocytes # (auto) 4.03 K/uL (1.2-3.4); Mean Corpuscular Hgb Conc 32.6 g/dL (32-36); Mean Corpuscular Volume 100.3 fL (80-100); Mean Platelet Volume 10.2 fL (7.4-10.4); Monocytes % (auto) 6.3 %; Neutrophils # (auto) 11.92 K/uL (1.4-6.5); Neutrophils % (auto) 67.8 %; Platelet Count 331 K/uL (130-400); RDW Coefficient of Variation 15.4 % (11.5-14.5); RDW Standard Deviation 56.2 fL (36.4-46.3); Red Blood Count 3.21 M/uL (4.2-5.4); White Blood Count 17.55 K/uL (4.8-10.8)
[2018-11-01 07:21] LABS: Albumin Globulin Ratio 0.5 (0.9-2); Albumin Level 1.8 gm/dl (3.4-5.0); Bilirubin,Total 0.9 mg/dl (0.2-1); Creatinine Clr Calc Pharmacy 104.7 ml/min; Est GFR (African American) 138.3; Est GFR (Non-African American) 119.4; Globulin 3.9 gm/dl (2.5-4.0); Magnesium 1.9 mg/dl (1.8-2.4); Potassium 4.8 mmol/L (3.5-5.1); Total Protein 5.7 gm/dl (6.4-8.2)
== END 2018-11-01 16:40 | disposition home or self-care (01) ==
LOC: ED 15:36 → 4E 18:55

== ENCOUNTER 2018-11-17 20:24 | Observation (INO) ==
[2018-11-17 21:07] LABS: Hematocrit (blood only) 40.3 % (37-47); Hemoglobin 13.6 g/dL (12.0-16.0); Mean Corpuscular Hgb Conc 33.7 g/dL (32-36); Mean Corpuscular Volume 97.8 fL (80-100); Mean Platelet Volume 10.1 fL (7.4-10.4); Platelet Count 436 K/uL (130-400); RDW Coefficient of Variation 14.6 % (11.5-14.5); RDW Standard Deviation 52.4 fL (36.4-46.3); Red Blood Count 4.12 M/uL (4.2-5.4); White Blood Count 22.28 K/uL (4.8-10.8)
[2018-11-17 21:16] LABS: INR 1.3 (0.9-1.1); Prothrombin Time 12.7 Seconds (9.0-12.0)
[2018-11-17 21:19] LABS: Appearance Urine Clear (Clear); Bilirubin Urine Negative (Negative); Color Urine Orange; Glucose Urine UA Negative (Negative); Ketones Urine Negative (Negative); Leukocyte Esterase Urine Negative (Negative); Nitrite Urine Negative (Negative); Protein Urine Negative (Negative); Specific Gravity Urine 1.009 (1.000-1.030); Urobilinogen Urine Negative (Negative)
[2018-11-17 21:25] LABS: Albumin Level 2.6 gm/dl (3.4-5.0); BUN Creatinine Ratio 4.9 (10-20); Calcium 8.3 mg/dl (8.5-10.1); Creatinine Clr Calc Pharmacy 107.9 ml/min; Est GFR (African American) 139.4; Est GFR (Non-African American) 120.3; Magnesium 1.9 mg/dl (1.8-2.4); Potassium 3.2 mmol/L (3.5-5.1)
[2018-11-17 21:26] LABS: Pregnancy Test, Serum Negative (Negative)
[2018-11-17 21:27] LABS: Albumin Globulin Ratio 0.6 (0.9-2); Basophils # (auto) 0.13 K/uL (0-0.2); Basophils % (auto) 0.6 %; Bilirubin Direct 0.3 mg/dl (0-0.2); Bilirubin,Total 0.6 mg/dl (0.2-1); Eosinophils # (auto) 0.33 K/uL (0-0.5); Eosinophils % (auto) 1.5 %; Globulin 4.5 gm/dl (2.5-4.0); Immature Granulocytes % (auto) 0.4 %; Lymphocytes # (auto) 6.18 K/uL (1.2-3.4); Lymphocytes % (auto) 27.7 %; Monocytes # (auto) 1.22 K/uL (0.11-0.59); Monocytes % (auto) 5.5 %; Neutrophils # (auto) 14.32 K/uL (1.4-6.5); Neutrophils % (auto) 64.3 %; Phosphorus 3.2 mg/dl (2.5-4.9); Total Protein 7.1 gm/dl (6.4-8.2)
[2018-11-17] MEDS ORDERED: IOVERSOL 100ml IV PRN (21:49)
--- NOTE | 2018-11-17 22:03 | CT Scan Report ---
CT SCAN OF THE ABDOMEN AND PELVIS WITH IV CONTRAST CLINICAL HISTORY: Generalized abdominal pain. COMPARISON STUDY: Abdominal CT dated 10/30/2018. Abdominal MRI dated 10/31/2018. TECHNIQUE: Following the IV administration of 91 cc of Optiray 320, CT scan of the abdomen and pelvi s is performed from the lung bases to the proximal femora. Images are reviewed in the axial, sagittal , and coronal planes. IV contrast was administered without complication. A dose lowering technique wa s utilized adhering to the principles of ALARA. CT DOSE: 244.24 mGy.cm FINDINGS: Lung bases: The heart is normal in size and without pericardial effusion. The lung bases are clear. Liver: The contrast-enhanced liver is enlarged, measuring 23 cm in length. The liver is cirrhotic in morphology, markedly heterogeneous in attenuation, steatotic, and demonstrates a nodular surface cont our. There is no intrahepatic biliary ductal dilatation. The hepatic veins and portal veins are paten t. Gallbladder: Unremarkable. Spleen: Normal in size and attenuation. Pancreas: Unremarkable. Adrenal glands: Unremarkable. Kidneys: The contrast enhanced kidneys are normal in size and without hydronephrosis. The kidneys enh ance symmetrically. Abdominal vasculature: The abdominal aorta is normal in course and caliber noting moderate atheroscle rotic calcification. Bowel: There is no bowel obstruction. Mild portal colopathy is suggested involving the right colon. T he appendix is normal in appearance. Peritoneum: There is a moderate to large volume of abdominopelvic ascites. No intraperitoneal free ai r is seen. Lymphadenopathy: None. Pelvic viscera: The bladder is decompressed and grossly unremarkable. The uterus and adnexa are jamar l as imaged. Skeletal structures: No lytic or blastic lesions are seen. IMPRESSION: 1. There are no acute infectious or inflammatory findings in the abdomen or pelvis. 2. The liver is enlarged, markedly heterogeneous, steatotic, and cirrhotic in morphology. 3. There is a moderate to large volume of abdominopelvic ascites, similar in appearance to previous. 4. Additional findings as above. Electronically signed by: Franc Flores M.D. 11/17/2018 10:01 PM
[2018-11-17] MEDS ORDERED: MULTI-VITAMIN INFUSION 10 ML, THIAMINE HCL 100 MG, FOLIC ACID 1 MG in SODIUM CHLORIDE 0... IV SCH (23:30)
[2018-11-18] MEDS ORDERED: NICOTINE 21 MG/24 HR TDSY TD STA (00:07)
[2018-11-18] MEDS ORDERED: LORazepam 1 MG TAB SL STA (00:07)
[2018-11-18] MEDS ORDERED: NICOTINE POLACRILEX 2 MG GUM MT PRN (00:07)
--- NOTE | 2018-11-18 00:42 | Emergency Department Note ---
Entered by Franc Ny acting as a scribe for Wilmer Wu MD History of Present Illness General Chief complaint: Abdominal Pain Stated complaint: FLUID IN ABDOMEN Time Seen by Provider: 11/17/18 20:33 Source: patient and family () History of Present Illness Provider complaint: Fluid in abdomen Onset (ago): unknown Location: abdomen Pain Consistency: + constant Maximum Pain Intensity: 5 Quality: + other (uncomfortable bloating) Associated symptoms: + cough and + other (congestion, diarrhea); no fever/chills The patient is a 48 year old female who presents to the Emergency Room with complaints of fluid in the abdomen. The patient states that she has liver cirrhosis as a result of excessive amounts of drinking and that she feels an uncomfortable bloating in her abdomen and feels that her abdomen is filling up. She rates her overall discomfort as a 5/10. The patient adds that she has had her abdomen drained in the past and her current symptoms feel like they did prior to having her abdomen drained in the past. She adds that she is still drinking despite her cirrhosis. She adds that she stops for a little bit and then is "triggered" by different stressors in her life. She notes she has been in rehab in the past for her drinking. She was last hospitalized for her cirrhosis a couple weeks ago. The patient also complains of a cough and congestion that she states is from her smoking. She also complains of diarrhea. The patient reports that she cannot remember the last time she has gone more than a week without drinking. The patient denies fevers/chills. The patient notes that she does smoke marijuana occasionally. Home Medications Home Medications Medication Instructions Recorded Confirmed Type folic acid 1 mg PO DAILY #30 tab 11/01/18 11/17/18 Rx spironolactone 25 mg PO QAM 30 Days #30 tab 11/01/18 11/17/18 Rx thiamine HCl (vitamin B1) 100 mg PO DAILY #30 tab 11/01/18 11/17/18 Rx hydroxyzine HCl 25 mg PO HS PRN 11/17/18 11/17/18 History Allergies Allergy/AdvReac Type Severity Reaction Status Date / Time Bactrim Allergy Severe CHEST PAIN Unverified 12/26/16 19:35 sulfamethoxazole Allergy Severe CHEST PAIN Unverified 11/17/18 20:53 trimethoprim Allergy Severe CHEST PAIN Unverified 11/17/18 20:53 Past Med/Surg History Medical History Neuropathy (Acute) Abdominal pain Diabetes Heart disease Hypertension Asthma Bronchitis Pneumonia Alcohol withdrawal Liver disease due to alcohol Pneumonia Surgical History H/O dilation and curettage Previous section Family History Sister Drug abuse Other No significant family history Social History marital status: Current Living Situation: Spouse and Other Current Living Situation Comment: kids and grandkids Other Information That Helps Us Care for You: No Feels Safe at Home: Yes Safety Concerns: Feels Safe At This Time Smoking Status: Current every day smoker Tobacco Type: cigarettes Cigarettes per Day: pack/day Do You Dip or Chew Tobacco: No Second Hand Exposure: Yes Tobacco Cessation Education Requested by Patient: No Hx Alcohol Use: Yes (alcoholic) Alcohol type: other Alcohol Intake Frequency: a few times a week Hx Substance Use: No Beliefs That Will Affect Care: None Preferred Language: Filipino Communication Ability: Effective Armature And Rotor Winder Required: No Review of Systems See HPI for pertinent positives & negatives. and A total of 10 systems reviewed and were otherwise negative Physical Exam Vital Signs Vital Signs - 24 hr 11/17/18 20:26 11/17/18 20:34 11/17/18 20:45 Temperature 36.7 C Temperature Source Oral Sepsis Recent Fever Within 48 Hours No Sepsis Action Taken by Nursing No Action Required Pulse Rate 100 H 100 H Pulse Rate [Right Finger] Pulse Rhythm Regular Pulse Rhythm [Right Finger] Pulse Strength [Right Finger] Respiratory Rate 18 20 Respiratory Effort / Characteristics Non-Labored Spontaneous Respiratory Depth Normal Respiratory Pattern Regular Blood Pressure 110/73 116/83 Blood Pressure [Left Arm] Blood Pressure [Right Arm] Blood Pressure Mean 85 94 Blood Pressure Mean [Left Arm] Blood Pressure Mean [Right Arm] Blood Pressure Position Sitting Blood Pressure Position [Right Arm] Pulse Oximetry 97 97 97 Oxygen Delivery Method Room Air Room Air 11/17/18 21:00 11/17/18 21:31 11/17/18 21:32 Temperature Temperature Source Sepsis Recent Fever Within 48 Hours Sepsis Action Taken by Nursing Pulse Rate 92 H 95 H 95 H Pulse Rate [Right Finger] Pulse Rhythm Pulse Rhythm [Right Finger] Pulse Strength [Right Finger] Respiratory Rate 14 21 16 Respiratory Effort / Characteristics Respiratory Depth Respiratory Pattern Blood Pressure 108/83 117/81 Blood Pressure [Left Arm] Blood Pressure [Right Arm] Blood Pressure Mean 91 93 Blood Pressure Mean [Left Arm] Blood Pressure Mean [Right Arm] Blood Pressure Position Blood Pressure Position [Right Arm] Pulse Oximetry 98 99 98 Oxygen Delivery Method 11/17/18 22:02 11/17/18 22:30 11/17/18 23:17 Temperature Temperature Source Sepsis Recent Fever Within 48 Hours Sepsis Action Taken by Nursing Pulse Rate 94 H 92 H 92 H Pulse Rate [Right Finger] 96 H Pulse Rhythm Pulse Rhythm [Right Finger] Regular Pulse Strength [Right Finger] Normal Respiratory Rate 21 16 12 Respiratory Effort / Characteristics Non-Labored Spontaneous Respiratory Depth Normal Respiratory Pattern Regular Blood Pressure 105/76 Blood Pressure [Left Arm] Blood Pressure [Right Arm] 105/76 Blood Pressure Mean 85 Blood Pressure Mean [Left Arm] Blood Pressure Mean [Right Arm] 85 Blood Pressure Position Blood Pressure Position [Right Arm] Lying Pulse Oximetry 97 95 98 Oxygen Delivery Method Room Air 11/17/18 23:30 11/18/18 00:00 11/18/18 00:30 Temperature Temperature Source Sepsis Recent Fever Within 48 Hours Sepsis Action Taken by Nursing Pulse Rate 91 H 104 H 92 H Pulse Rate [Right Finger] Pulse Rhythm Pulse Rhythm [Right Finger] Pulse Strength [Right Finger] Respiratory Rate 16 23 28 H Respiratory Effort / Characteristics Respiratory Depth Respiratory Pattern Blood Pressure Blood Pressure [Left Arm] Blood Pressure [Right Arm] Blood Pressure Mean Blood Pressure Mean [Left Arm] Blood Pressure Mean [Right Arm] Blood Pressure Position Blood Pressure Position [Right Arm] Pulse Oximetry Oxygen Delivery Method 11/18/18 00:39 11/18/18 01:00 11/18/18 01:01 Temperature Temperature Source Sepsis Recent Fever Within 48 Hours Sepsis Action Taken by Nursing Pulse Rate 100 H 89 90 Pulse Rate [Right Finger] Pulse Rhythm Pulse Rhythm [Right Finger] Pulse Strength [Right Finger] Respiratory Rate 25 H 21 19 Respiratory Effort / Characteristics Respiratory Depth Respiratory Pattern Blood Pressure 119/85 116/79 Blood Pressure [Left Arm] Blood Pressure [Right Arm] Blood Pressure Mean 96 91 Blood Pressure Mean [Left Arm] Blood Pressure Mean [Right Arm] Blood Pressure Position Blood Pressure Position [Right Arm] Pulse Oximetry 92 93 95 Oxygen Delivery Method 11/18/18 01:30 11/18/18 01:31 11/18/18 01:59 Temperature 36.9 C Temperature Source Oral Sepsis Recent Fever Within 48 Hours Sepsis Action Taken by Nursing Pulse Rate 91 H 93 H Pulse Rate [Right Finger] 95 H Pulse Rhythm Pulse Rhythm [Right Finger] Pulse Strength [Right Finger] Normal Respiratory Rate 18 24 18 Respiratory Effort / Characteristics Respiratory Depth Normal Respiratory Pattern Blood Pressure 107/76 Blood Pressure [Left Arm] 108/74 Blood Pressure [Right Arm] Blood Pressure Mean 86 Blood Pressure Mean [Left Arm] 85 Blood Pressure Mean [Right Arm] Blood Pressure Position Blood Pressure Position [Right Arm] Sitting Pulse Oximetry 92 96 96 Oxygen Delivery Method Room Air GENERAL: Awake, alert, chronically ill appearing, in no distress HENT: Normocephalic, atraumatic. Oropharynx with dry mucous membranes and otherwise unremarkable. EYES: Normal conjunctiva. Sclera non-icteric. NECK: Supple. No nuchal rigidity. FROM. No JVD. RESPIRATORY: Clear to auscultation. CARDIAC: Regular rate, normal rhythm. Extremities warm and well perfused. Pulses equal. ABDOMEN: Distended but soft. No tenderness to palpation. No rebound or guarding. No masses. RECTAL: Deferred. MUSCULOSKELETAL: Chest examination reveals no tenderness. The back is symmetrical on inspection without obvious abnormality. There is no CVA tenderness to palpation. No joint edema. LOWER EXTREMITIES: Calves are equal size bilaterally and non-tender. No edema. No discoloration. NEURO: Normal sensorium. No sensory or motor deficits noted. SKIN: No rash or jaundice noted. Scattered spider angiomas. Course 2043: Past medical records reviewed. The patient was evaluated in room C07, and a complete history and physical examination were performed. 2247: I reevaluated the patient. 4: [facility] will evaluate the patient for further management. Consultations Consultation #1: [id number]: [facility] will evaluate the patient for further management. Time: 23:44 Administered Medications Discontinued Medications Multivitamins 10 ml/ Thiamine HCl 100 mg/ Folic Acid 1 mg/Sodium Chloride 1, 011.2 mls @ 1,011.2 mls/hr IV .Q1H CHEN Stop: 11/18/18 00:29 Last Infusion: 11/18/18 01:25 Dose: 0 mls/hr Admin: 11/18/18 00:25 Dose: 1,011.2 mls/hr Ioversol (Optiray 320 100ml) 90 ml IV ONCE PRN PRN Reason: Interaction Checking Stop: 11/21/18 21:48 Last Admin: 11/17/18 21:51 Dose: 90 ml Lorazepam (Ativan) 1 mg SL NOW STA Stop: 11/18/18 00:08 Last Admin: 11/18/18 00:25 Dose: 1 mg Miscellaneous (Remove Nicoderm Patch) 1 ea N/A HS CHEN Stop: 12/18/18 20:59 Last Admin: 11/18/18 01:26 Dose: 1 ea Nicotine (Nicoderm Cq) 21 mg TD QAM STA Stop: 11/18/18 00:08 Last Admin: 11/18/18 00:25 Dose: 21 mg Nicotine Polacrilex (Nicorette 2mg) 1 piece MT PRN PRN PRN Reason: Undecided Stop: 12/18/18 00:06 Last Admin: 11/18/18 00:25 Dose: 1 piece Medical Decision Making Differential Diagnosis Differential diagnosis: Etiologies such as appendicitis, diverticulitis, PUD, biliary pathology, UTI, pancreatitis, obstruction, mesenteric ischemia, aortic pathology, infections, inflammatory bowel disease, renal colic, as well as others were entertained. Medical Records Attestation: I reviewed the patient's medical records. Home Medications Current Medication List: was personally reviewed by me Laboratory Data Attestation: I reviewed the patient's lab results. Result diagrams: 11/17/18 20:50 11/17/18 20:50 Lab Results 11/17/18 11/17/18 11/17/18 Range/Units 20:50 20:50 20:50 WBC 22.28 H (4.8-10.8) K/uL RBC 4.12 L (4.2-5.4) M/uL Hgb 13.6 (12.0-16.0) g/dL Hct 40.3 (37-47) % MCV 97.8 (80-100) fL MCH 33.0 (25-34) pg MCHC 33.7 (32-36) g/dL RDW Std Deviation 52.4 H (36.4-46.3) fL RDW Coeff of Spenser 14.6 H (11.5-14.5) % Plt Count 436 H (130-400) K/uL MPV 10.1 (7.4-10.4) fL Immature Gran % (Auto) 0.4 % Neut % (Auto) 64.3 % Lymph % (Auto) 27.7 % Dougherty % (Auto) 5.5 % Eos % (Auto) 1.5 % Baso % (Auto) 0.6 % Immature Gran # (Auto) 0.10 H (0.00-0.02) K/uL Neut # (Auto) 14.32 H (1.4-6.5) K/uL Lymph # (Auto) 6.18 H (1.2-3.4) K/uL Dougherty # (Auto) 1.22 H (0.11-0.59) K/uL Eos # (Auto) 0.33 (0-0.5) K/uL Baso # (Auto) 0.13 (0-0.2) K/uL PT 12.7 H (9.0-12.0) Seconds INR 1.3 H (0.9-1.1) Sodium (136-145) mmol/L Potassium (3.5-5.1) mmol/L Chloride (98-107) mmol/L Carbon Dioxide (21-32) mmol/L Anion Gap (3-11) BUN (7-18) mg/dl Creatinine (0.6-1.2) mg/dl Est Cr Clr Drug Dosing ml/min Est GFR ( Amer) Est GFR (Non-Af Amer) BUN/Creatinine Ratio (10-20) Glucose (70-99) mg/dl Calcium (8.5-10.1) mg/dl Phosphorus (2.5-4.9) mg/dl Magnesium (1.8-2.4) mg/dl Total Bilirubin (0.2-1) mg/dl Direct Bilirubin (0-0.2) mg/dl AST (15-37) U/L ALT (12-78) U/L Alkaline Phosphatase (45-117) U/L Ammonia 48.9 H (11-32) umol/L Total Protein (6.4-8.2) gm/dl Albumin (3.4-5.0) gm/dl Globulin (2.5-4.0) gm/dl Albumin/Globulin Ratio (0.9-2) Lipase (73-393) U/L HCG, Qual (Negative) Urine Color Urine Appearance (Clear) Urine pH (4.5-7.5) Ur Specific [place] (1.000-1.030) Urine Protein (Negative) Urine Glucose (UA) (Negative) Urine Ketones (Negative) Urine Blood (Negative) Urine Nitrite (Negative) Urine Bilirubin (Negative) Urine Urobilinogen (Negative) Ur Leukocyte Esterase (Negative) Ethyl Alcohol mg/dL (0-3) mg/dl 11/17/18 11/17/18 11/17/18 Range/Units 20:50 20:50 20:50 WBC (4.8-10.8) K/uL RBC (4.2-5.4) M/uL Hgb (12.0-16.0) g/dL Hct (37-47) % MCV (80-100) fL MCH (25-34) pg MCHC (32-36) g/dL RDW Std Deviation (36.4-46.3) fL RDW Coeff of Spenser (11.5-14.5) % Plt Count (130-400) K/uL MPV (7.4-10.4) fL Immature Gran % (Auto) % Neut % (Auto) % Lymph % (Auto) % Doug[place] % (Auto) % Eos % (Auto) % Baso % (Auto) % Immature Gran # (Auto) (0.00-0.02) K/uL Neut # (Auto) (1.4-6.5) K/uL Lymph # (Auto) (1.2-3.4) K/uL [place] # (Auto) (0.11-0.59) K/uL Eos # (Auto) (0-0.5) K/uL Baso # (Auto) (0-0.2) K/uL PT (9.0-12.0) Seconds INR (0.9-1.1) Sodium 140 (136-145) mmol/L Potassium 3.2 L (3.5-5.1) mmol/L Chloride 106 (98-107) mmol/L Carbon Dioxide 25 (21-32) mmol/L Anion Gap 9.0 (3-11) BUN 2 L (7-18) mg/dl Creatinine 0.43 L (0.6-1.2) mg/dl Est Cr Clr Drug Dosing 107.9 ml/min Est GFR ( Amer) 139.4 Est GFR (Non-Af Amer) 120.3 BUN/Creatinine Ratio 4.9 L (10-20) Glucose 78 (70-99) mg/dl Calcium 8.3 L (8.5-10.1) mg/dl Phosphorus 3.2 (2.5-4.9) mg/dl Magnesium 1.9 (1.8-2.4) mg/dl Total Bilirubin 0.6 (0.2-1) mg/dl Direct Bilirubin 0.3 H (0-0.2) mg/dl AST 86 H (15-37) U/L ALT 35 (12-78) U/L Alkaline Phosphatase 312 H (45-117) U/L Ammonia (11-32) umol/L Total Protein 7.1 (6.4-8.2) gm/dl Albumin 2.6 L (3.4-5.0) gm/dl Globulin 4.5 H (2.5-4.0) gm/dl Albumin/Globulin Ratio 0.6 L (0.9-2) Lipase 70 L (73-393) U/L HCG, Qual Negative (Negative) Urine Color Urine Appearance (Clear) Urine pH (4.5-7.5) Ur Specific [place] (1.000-1.030) Urine Protein (Negative) Urine Glucose (UA) (Negative) Urine Ketones (Negative) Urine Blood (Negative) Urine Nitrite (Negative) Urine Bilirubin (Negative) Urine Urobilinogen (Negative) Ur Leukocyte Esterase (Negative) Ethyl Alcohol mg/dL 209.7 H (0-3) mg/dl 11/17/18 Range/Units 20:55 WBC (4.8-10.8) K/uL RBC (4.2-5.4) M/uL Hgb (12.0-16.0) g/dL Hct (37-47) % MCV (80-100) fL MCH (25-34) pg MCHC (32-36) g/dL RDW Std Deviation (36.4-46.3) fL RDW Coeff of Spenser (11.5-14.5) % Plt Count (130-400) K/uL MPV (7.4-10.4) fL Immature Gran % (Auto) % Neut % (Auto) % Lymph % (Auto) % Doug[place] % (Auto) % Eos % (Auto) % Baso % (Auto) % Immature Gran # (Auto) (0.00-0.02) K/uL Neut # (Auto) (1.4-6.5) K/uL Lymph # (Auto) (1.2-3.4) K/uL [place] # (Auto) (0.11-0.59) K/uL Eos # (Auto) (0-0.5) K/uL Baso # (Auto) (0-0.2) K/uL PT (9.0-12.0) Seconds INR (0.9-1.1) Sodium (136-145) mmol/L Potassium (3.5-5.1) mmol/L Chloride (98-107) mmol/L Carbon Dioxide (21-32) mmol/L Anion Gap (3-11) BUN (7-18) mg/dl Creatinine (0.6-1.2) mg/dl Est Cr Clr Drug Dosing ml/min Est GFR ( Amer) Est GFR (Non-Af Amer) BUN/Creatinine Ratio (10-20) Glucose (70-99) mg/dl Calcium (8.5-10.1) mg/dl Phosphorus (2.5-4.9) mg/dl Magnesium (1.8-2.4) mg/dl Total Bilirubin (0.2-1) mg/dl Direct Bilirubin (0-0.2) mg/dl AST (15-37) U/L ALT (12-78) U/L Alkaline Phosphatase (45-117) U/L Ammonia (11-32) umol/L Total Protein (6.4-8.2) gm/dl Albumin (3.4-5.0) gm/dl Globulin (2.5-4.0) gm/dl Albumin/Globulin Ratio (0.9-2) Lipase (73-393) U/L HCG, Qual (Negative) Urine Color [place] Urine Appearance Clear (Clear) Urine pH 8.0 H (4.5-7.5) Ur Specific [place] 1.009 (1.000-1.030) Urine Protein Negative (Negative) Urine Glucose (UA) Negative (Negative) Urine Ketones Negative (Negative) Urine Blood Negative (Negative) Urine Nitrite Negative (Negative) Urine Bilirubin Negative (Negative) Urine Urobilinogen Negative (Negative) Ur Leukocyte Esterase Negative (Negative) Ethyl Alcohol mg/dL (0-3) mg/dl Imaging Data Radiologist's Impression: Radiology results as stated below per my review and the radiologist's interpretation: CT SCAN OF THE ABDOMEN AND PELVIS WITH IV CONTRAST CLINICAL HISTORY: Generalized abdominal pain. COMPARISON STUDY: Abdominal CT dated 10/30/2018. Abdominal MRI dated 10/31/2018. TECHNIQUE: Following the IV administration of 91 cc of Optiray 320, CT scan of the abdomen and pelvis is performed from the lung bases to the proximal femora. Images are reviewed in the axial, sagittal, and coronal planes. IV contrast was administered without complication. A dose lowering technique was utilized adhering to the principles of ALARA. CT DOSE: 244.24 mGy.cm FINDINGS: Lung bases: The heart is normal in size and without pericardial effusion. The lung bases are clear. Liver: The contrast-enhanced liver is enlarged, measuring 23 cm in length. The liver is cirrhotic in morphology, markedly heterogeneous in attenuation, steatotic, and demonstrates a nodular surface contour. There is no intrahepatic biliary ductal dilatation. The hepatic veins and portal veins are patent. Gallbladder: Unremarkable. Spleen: Normal in size and attenuation. Pancreas: Unremarkable. Adrenal glands: Unremarkable. Kidneys: The contrast enhanced kidneys are normal in size and without hydronephrosis. The kidneys enhance symmetrically. Abdominal vasculature: The abdominal aorta is normal in course and caliber noting moderate atherosclerotic calcification. Bowel: There is no bowel obstruction. Mild portal colopathy is suggested involving the right colon. The appendix is normal in appearance. Peritoneum: There is a moderate to large volume of abdominopelvic ascites. No intraperitoneal free air is seen. Lymphadenopathy: None. Pelvic viscera: The bladder is decompressed and grossly unremarkable. The uterus and adnexa are normal as imaged. Skeletal structures: No lytic or blastic lesions are seen. IMPRESSION: 1. There are no acute infectious or inflammatory findings in the abdomen or pelvis. 2. The liver is enlarged, markedly heterogeneous, steatotic, and cirrhotic in morphology. 3. There is a moderate to large volume of abdominopelvic ascites, similar in appearance to previous. 4. Additional findings as above. Electronically signed by: Franc Flores M.D. 11/17/2018 10:01 PM Blood Pressure Blood Pressure Findings: Normal blood pressure MDM Narrative The patient is a 48-year-old woman who presents emergency department with worsening abdominal distention and abdominal pain in the setting of alcohol abuse and recent admission for similar symptoms 2 weeks ago with presumed diagnosis of early alcoholic cirrhosis per hpi. Of note the patient has a history of noncompliance and while the patient did have a documented plan for follow-up and was contacted by her primary care doctor's office for an appointment on November 11 and left multiple messages, the patient reports that she did not receive any messages and may have changed her phone number. Moreover the patient denies taking any medications regularly other than her hydroxyzine and folic acid. This is despite having Spironolactone prescribed to her. The patient additionally reports that she has continued to drink alcohol because she "could not stop." On arrival the patient is chronically ill -appearing but no acute distress, afebrile with stable vital signs. Patient has a distended abdomen but it is soft and nontender. WBC is 22K slightly increased from the patient's discharge. INR is 1.3 similar to prior. Creatinine within normal limits. No acidosis. Total bilirubin within normal limits. Ammonia 48 similar to prior values. EtOH level 209. CT abdomen pelvis demonstrates hepatomegaly that is heterogenous, steatotic and cirrhotic in morphology. Additionally moderate to large volume ascites is again observed similar to previous. The patient's overall lab work appears stable from her recent admission however given the patient's reaccumulation of her ascites and associated pain, reasonable to admit the patient for diagnostic and therapeutic paracentesis. Patient's noncompliance with previous plan certainly presents a challenge, however did discuss the importance of following through with alcohol cessation and her clinic appointments, to which the patient reports she is willing to try again and was agreeable for admission. Patient briefly changing her mind and wanting to go home however she was then agreeable to stay after the severity of her disease was communicated and plan to help ease discomfort of her alcohol withdrawal with Ativan and her nicotine withdrawal with patch and gum. Urine Cx from past admission did grow Ecoli. Blood cx drawn today. Will defer antibiotics to admitting team. Case was discussed with Dr. Flowers, [facility] hospitalist, will evaluate the patient for admission. Impression & Plan Cirrhosis, Ascites Discharge Plan Visit Data *Final* Discharge Date/Time: 11/18/18 01:48 Chief Complaint: Abdominal Pain Stated Complaint: FLUID IN ABDOMEN ED Provider: Wilmer Wu Discharge Problem: Cirrhosis, Ascites Patient Disposition: Admitted As Inpatient Discharge Instructions Interventions: ED Discharge Assessment Last Done: 11/18/18 01:48 The scribe's documentation has been prepared under my direction and personally reviewed by me in its entirety. I confirm that the note above accurately reflects all work, treatment, procedures, and medical decision making performed by me.
--- NOTE | 2018-11-18 00:49 | History & Physical Report ---
Date of Service November 18, 2018 Assessment & Plan (1) Alcoholic cirrhosis of liver with ascites: Alcoholic cirrhosis of liver with ascites/acute on chronic alcoholic liver disease-- Patient did have 1 L of ascitic fluid removed during last admission. Study results were negative for SBP. CT of abdomen and pelvis reports volume of fluid is about the same as last CT on 10/30/18, in spite of having had 1 L of fluid removed at that time. She has tolerated spironolactone 25 mg p.o. daily. We will add furosemide 20 mg p.o. daily. Her blood pressure will not allow us to place her on propranolol at this time. Present on Admission?: Yes (2) Acute on chronic alcoholic liver disease: See above Present on Admission?: Yes (3) Alcohol abuse: Alcohol level today is 209.7. Patient did undergo extensive counseling during last admission. Will attempt again this admission. Continue with thiamine 100 mg p.o. daily and folic acid 1 mg p.o. daily. Present on Admission?: Yes (4) E. coli UTI: Placed on ceftriaxone 1 g IV daily. Culture results noted from 11/01/18 Present on Admission?: Yes History of Present Illness Chief Complaint: The patient presents to the emergency department with complaint of "return of fluid in her abdomen". She reports that she continues to drink alcohol excessively. Primary Care Provider: Luzma Colvin DO The patient is a 48-year-old female, status post admission to [facility] from 10/30-11/01/18, where she was diagnosed with alcoholic cirrhosis and ascites, underwent diagnostic and therapeutic paracentesis with removal of 1 L of fluid, and was discharged to home and advised strongly regarding alcohol cessation. Patient reports to the emergency department today stating that the fluid is returning in her abdomen. She denies abdominal pain, , nausea, or vomiting. Allergies Allergy/AdvReac Type Severity Reaction Status Date / Time Bactrim Allergy Severe CHEST PAIN Unverified 12/26/16 19:35 sulfamethoxazole Allergy Severe CHEST PAIN Unverified 11/17/18 20:53 trimethoprim Allergy Severe CHEST PAIN Unverified 11/17/18 20:53 Home Medications Home Medications Medication Instructions Recorded Confirmed Type folic acid 1 mg PO DAILY #30 tab 11/01/18 11/17/18 Rx spironolactone 25 mg PO QAM 30 Days #30 tab 11/01/18 11/17/18 Rx thiamine HCl (vitamin B1) 100 mg PO DAILY #30 tab 11/01/18 11/17/18 Rx hydroxyzine HCl 25 mg PO HS PRN 11/17/18 11/17/18 History Past Med/Surg History Medical History Neuropathy (Acute) Abdominal pain Diabetes Heart disease Hypertension Asthma Bronchitis Pneumonia Alcohol withdrawal Liver disease due to alcohol Pneumonia Surgical History H/O dilation and curettage Previous section Family History Sister Drug abuse Other No significant family history Social History marital status: Current Living Situation: Spouse and Other Current Living Situation Comment: kids and grandkids Other Information That Helps Us Care for You: No Feels Safe at Home: Yes Safety Concerns: Feels Safe At This Time Smoking Status: Current every day smoker Tobacco Type: cigarettes Cigarettes per Day: pack/day Do You Dip or Chew Tobacco: No Second Hand Exposure: Yes Tobacco Cessation Education Requested by Patient: No Hx Alcohol Use: Yes (alcoholic) Alcohol type: other Alcohol Intake Frequency: a few times a week Hx Substance Use: No Beliefs That Will Affect Care: None Preferred Language: German Communication Ability: Effective Social Service Worker Required: No Review of Systems The patient denies chest pain, palpitations, shortness of breath, dyspnea on exertion, cough, lower extremity swelling, sore throat, fevers, chills, sweats, nausea, vomiting, diarrhea , constipation , abdominal pain, pelvic pain, blood in urine or stool, dysuria, urinary frequency or urgency, lightheadedness , dizziness, headache, memory loss, loss of consciousness, rash, abnormal bruising or bleeding, imbalance, focal or generalized weakness, numbness or tingling in arms or legs, generalized arthralgias or myalgias, back or neck pain , or night sweats. The review of systems is otherwise negative other than for that already noted above, and at least 10 systems have been reviewed. Physical Exam 2 Vital Signs (Past 24 Hours): Last Vital Signs Temp 36.7 C 11/17/18 20:26 Pulse 104 H 11/18/18 00:00 Resp 23 11/18/18 00:00 BP 105/76 11/17/18 23:17 Pulse Ox 98 11/17/18 23:17 Physical Exam: The patient is awake, alert and oriented 3, well developed and well nourished, normocephalic and atraumatic, lying in bed and in no acute distress. HEENT--PERRL, EOMI, mucous membranes and oropharynx dry. Neck--supple. No JVD. No bruits. Thyroid normal, trachea midline, no adenopathy. Heart--normal S1 and S2. No murmurs, rubs or gallops. Lungs--clear bilaterally, no respiratory distress, no accessory muscle use. Abdomen--normal bowel sounds and soft. Nontender to deep palpation. Nondistended. Extremities--no cyanosis or clubbing. No edema. There are good distal pulses b/ l. Dermatologic--normal skin turgor, normal color, no abnormal lymph nodes, no rash. Neurologic--cranial nerves II through XII grossly intact. Rheumatologic--normal range of motion. Psychiatric--normal affect. Results & Data Laboratory Results Laboratory Results WBC 22.28 K/uL (4.8-10.8) H 11/17/18 20:50 RBC 4.12 M/uL (4.2-5.4) L 11/17/18 20:50 Hgb 13.6 g/dL (12.0-16.0) 11/17/18 20:50 Hct 40.3 % (37-47) 11/17/18 20:50 MCV 97.8 fL (80-100) 11/17/18 20:50 MCH 33.0 pg (25-34) 11/17/18 20:50 MCHC 33.7 g/dL (32-36) 11/17/18 20:50 RDW Std Deviation 52.4 fL (36.4-46.3) H 11/17/18 20:50 RDW Coeff of Spenser 14.6 % (11.5-14.5) H 11/17/18 20:50 Plt Count 436 K/uL (130-400) H 11/17/18 20:50 MPV 10.1 fL (7.4-10.4) 11/17/18 20:50 Immature Gran % (Auto) 0.4 % 11/17/18 20:50 Neut % (Auto) 64.3 % 11/17/18 20:50 Lymph % (Auto) 27.7 % 11/17/18 20:50 Bea[place]gard % (Auto) 5.5 % 11/17/18 20:50 Eos % (Auto) 1.5 % 11/17/18 20:50 Baso % (Auto) 0.6 % 11/17/18 20:50 Immature Gran # (Auto) 0.10 K/uL (0.00-0.02) H 11/17/18 20:50 Neut # (Auto) 14.32 K/uL (1.4-6.5) H 11/17/18 20:50 Lymph # (Auto) 6.18 K/uL (1.2-3.4) H 11/17/18 20:50 Bea[place]gard # (Auto) 1.22 K/uL (0.11-0.59) H 11/17/18 20:50 Eos # (Auto) 0.33 K/uL (0-0.5) 11/17/18 20:50 Baso # (Auto) 0.13 K/uL (0-0.2) 11/17/18 20:50 PT 12.7 Seconds (9.0-12.0) H 11/17/18 20:50 INR 1.3 (0.9-1.1) H 11/17/18 20:50 Sodium 140 mmol/L (136-145) 11/17/18 20:50 Potassium 3.2 mmol/L (3.5-5.1) L 11/17/18 20:50 Chloride 106 mmol/L (98-107) 11/17/18 20:50 Carbon Dioxide 25 mmol/L (21-32) 11/17/18 20:50 Anion Gap 9.0 (3-11) 11/17/18 20:50 BUN 2 mg/dl (7-18) L 11/17/18 20:50 Creatinine 0.43 mg/dl (0.6-1.2) L 11/17/18 20:50 Est Cr Clr Drug Dosing 107.9 ml/min 11/17/18 20:50 Est GFR ( Amer) 139.4 11/17/18 20:50 Est GFR (Non-Af Amer) 120.3 11/17/18 20:50 BUN/Creatinine Ratio 4.9 (10-20) L 11/17/18 20:50 Glucose 78 mg/dl (70-99) 11/17/18 20:50 Calcium 8.3 mg/dl (8.5-10.1) L 11/17/18 20:50 Phosphorus 3.2 mg/dl (2.5-4.9) 11/17/18 20:50 Magnesium 1.9 mg/dl (1.8-2.4) 11/17/18 20:50 Total Bilirubin 0.6 mg/dl (0.2-1) 11/17/18 20:50 Direct Bilirubin 0.3 mg/dl (0-0.2) H 11/17/18 20:50 AST 86 U/L (15-37) H 11/17/18 20:50 ALT 35 U/L (12-78) 11/17/18 20:50 Alkaline Phosphatase 312 U/L (45-117) H 11/17/18 20:50 Ammonia 48.9 umol/L (11-32) H 11/17/18 20:50 Total Protein 7.1 gm/dl (6.4-8.2) 11/17/18 20:50 Albumin 2.6 gm/dl (3.4-5.0) L 11/17/18 20:50 Globulin 4.5 gm/dl (2.5-4.0) H 11/17/18 20:50 Albumin/Globulin Ratio 0.6 (0.9-2) L 11/17/18 20:50 Lipase 70 U/L (73-393) L 11/17/18 20:50 HCG, Qual Negative (Negative) 11/17/18 20:50 Urine Color [place] 11/17/18 20:55 Urine Appearance Clear (Clear) 11/17/18 20:55 Urine pH 8.0 (4.5-7.5) H 11/17/18 20:55 Ur Specific [place] 1.009 (1.000-1.030) 11/17/18 20:55 Urine Protein Negative (Negative) 11/17/18 20:55 Urine Glucose (UA) Negative (Negative) 11/17/18 20:55 Urine Ketones Negative (Negative) 11/17/18 20:55 Urine Blood Negative (Negative) 11/17/18 20:55 Urine Nitrite Negative (Negative) 11/17/18 20:55 Urine Bilirubin Negative (Negative) 11/17/18 20:55 Urine Urobilinogen Negative (Negative) 11/17/18 20:55 Ur Leukocyte Esterase Negative (Negative) 11/17/18 20:55 Ethyl Alcohol mg/dL 209.7 mg/dl (0-3) H 11/17/18 20:50 Diagnostic Findings [place], [place] [phone] CT Scan Report Patient: MARIA ELENA RANDLE Date: 11/17/18 MR#: [id number]: [address] [facility] Acct ID:[id number]: Date: 1970ty Zip: [place] [id number] Age: 48Location: ED Sex: F Room/Bed: Att Phy: Diagnosis: FLUID IN ABDOMEN Darlene Phy: Luzma Colvin, DOService Date: 11/17/18 Fam Phy: Interpreting Phy: Franc Flores MD Admit Phy: Ordering Phy: Wilmer Wu M.D. cc: ~ CT SCAN OF THE ABDOMEN AND PELVIS WITH IV CONTRAST CLINICAL HISTORY: Generalized abdominal pain. COMPARISON STUDY: Abdominal CT dated 10/30/2018. Abdominal MRI dated 10/31/2018. TECHNIQUE: Following the IV administration of 91 cc of Optiray 320, CT scan of the abdomen and pelvis is performed from the lung bases to the proximal femora. Images are reviewed in the axial, sagittal, and coronal planes. IV contrast was administered without complication. A dose lowering technique was utilized adhering to the principles of ALARA. CT DOSE: 244.24 mGy.cm FINDINGS: Lung bases: The heart is normal in size and without pericardial effusion. The lung bases are clear. Liver: The contrast-enhanced liver is enlarged, measuring 23 cm in length. The liver is cirrhotic in morphology, markedly heterogeneous in attenuation, steatotic, and demonstrates a nodular surface contour. There is no intrahepatic biliary ductal dilatation. The hepatic veins and portal veins are patent. Gallbladder: Unremarkable. Spleen: Normal in size and attenuation. Pancreas: Unremarkable. Adrenal glands: Unremarkable. Kidneys: The contrast enhanced kidneys are normal in size and without hydronephrosis. The kidneys enhance symmetrically. Abdominal vasculature: The abdominal aorta is normal in course and caliber noting moderate atherosclerotic calcification. Bowel: There is no bowel obstruction. Mild portal colopathy is suggested involving the right colon. The appendix is normal in appearance. Peritoneum: There is a moderate to large volume of abdominopelvic ascites. No intraperitoneal free air is seen. Lymphadenopathy: None. Pelvic viscera: The bladder is decompressed and grossly unremarkable. The uterus and adnexa are normal as imaged. Skeletal structures: No lytic or blastic lesions are seen. IMPRESSION: 1. There are no acute infectious or inflammatory findings in the abdomen or pelvis. 2. The liver is enlarged, markedly heterogeneous, steatotic, and cirrhotic in morphology. 3. There is a moderate to large volume of abdominopelvic ascites, similar in appearance to previous. 4. Additional findings as above. Electronically signed by: Franc Flores M.D. 11/17/2018 10:01 PM Dictated: 11/17/182154 Transcribed: 11/17/18 2155 Medications Administered Home Medications Medication Instructions Recorded Confirmed hydroxyzine HCl 25 mg PO HS PRN 11/17/18 11/17/18 Previous Rx's Medication Instructions Recorded folic acid 1 mg PO DAILY #30 tab 11/01/18 spironolactone 25 mg PO QAM 30 Days #30 tab 11/01/18 thiamine HCl (vitamin B1) 100 mg PO DAILY #30 tab 11/01/18 Code Status & VTE Plan Code Status Full code VTE Prophylaxis Plan VTE Prophylaxis will be ordered: Yes
[2018-11-18 05:52] LABS: Basophils # (auto) 0.08 K/uL (0-0.2); Basophils % (auto) 0.5 %; Eosinophils # (auto) 0.31 K/uL (0-0.5); Hematocrit (blood only) 35.1 % (37-47); Hemoglobin 11.4 g/dL (12.0-16.0); Immature Granulocytes # (auto) 0.06 K/uL (0.00-0.02); Immature Granulocytes % (auto) 0.4 %; Lymphocytes # (auto) 3.76 K/uL (1.2-3.4); Lymphocytes % (auto) 24.9 %; Mean Corpuscular Hgb Conc 32.5 g/dL (32-36); Mean Corpuscular Volume 98.9 fL (80-100); Mean Platelet Volume 9.7 fL (7.4-10.4); Monocytes % (auto) 7.3 %; Neutrophils # (auto) 9.82 K/uL (1.4-6.5); Neutrophils % (auto) 64.9 %; Platelet Count 363 K/uL (130-400); RDW Coefficient of Variation 14.4 % (11.5-14.5); RDW Standard Deviation 50.9 fL (36.4-46.3); Red Blood Count 3.55 M/uL (4.2-5.4); White Blood Count 15.13 K/uL (4.8-10.8)
[2018-11-18 05:55] LABS: INR 1.3 (0.9-1.1); Partial Thromboplastin Ratio 1.2; Partial Thromboplastin Time 29.9 Seconds (21.0-31.0); Prothrombin Time 13.4 Seconds (9.0-12.0)
[2018-11-18 06:14] LABS: BUN Creatinine Ratio 5.1 (10-20); Calcium 7.2 mg/dl (8.5-10.1); Creatinine Clr Calc Pharmacy 109.9 ml/min; Est GFR (African American) 140.5; Est GFR (Non-African American) 121.2; Potassium 3.3 mmol/L (3.5-5.1)
[2018-11-18 06:26] LABS: Albumin Globulin Ratio 0.5 (0.9-2); Bilirubin,Total 0.6 mg/dl (0.2-1); Globulin 3.7 gm/dl (2.5-4.0); Total Protein 5.7 gm/dl (6.4-8.2)
[2018-11-18] MEDS ORDERED: INFLUENZA VIRUS QUAD VACCINE 0.5 ML SYR IM ONE (07:45)
[2018-11-18] MEDS ORDERED: INFLUENZA ADMINISTRATION CHARGE ONE (07:45)
--- NOTE | 2018-11-18 08:24 | Hospitalist Progress Note ---
Date of Service November 18, 2018 Assessment & Plan (1) Alcoholic cirrhosis of liver with ascites: Alcoholic cirrhosis of liver with ascites/acute on chronic alcoholic liver disease-- Patient did have 1 L of ascitic fluid removed during last admission. Study results were negative for SBP. CT of abdomen and pelvis reports volume of fluid is about the same as last CT on 10/30/18, in spite of having had 1 L of fluid removed at that time. She has tolerated spironolactone 25 mg p.o. daily. We will add furosemide 20 mg p.o. daily. Her blood pressure will not allow us to place her on propranolol at this time. (2) Acute on chronic alcoholic liver disease: See above (3) Alcohol abuse: Alcohol level today is 209.7. Patient did undergo extensive counseling during last admission. Will attempt again this admission. Continue with thiamine 100 mg p.o. daily and folic acid 1 mg p.o. daily. (4) E. coli UTI: Placed on ceftriaxone 1 g IV daily. Culture results noted from 11/01/18 Physical Exam 2 Vital Signs (Past 24 Hours): Last Vital Signs Temp 36.7 C 11/18/18 07:07 Pulse 89 11/18/18 07:07 Resp 18 11/18/18 07:07 BP 106/72 11/18/18 07:07 Pulse Ox 96 11/18/18 07:07
[2018-11-18] MEDS ORDERED: SPIRONOLACTONE 25 MG TAB PO SCH (09:00)
[2018-11-18] MEDS ORDERED: POTASSIUM CHLORIDE 20 MEQ TABCR PO SCH (09:00)
[2018-11-18] MEDS ORDERED: FUROSEMIDE 20 MG TAB PO SCH (09:00)
[2018-11-18] MEDS ORDERED: cefTRIAXone SODIUM 1,000 MG/50 ML BAG IV SCH (09:00)
--- NOTE | 2018-11-18 16:24 | Discharge Summary ---
Date of Service November 18, 2018 Admission HPI Per Admitting Provider The patient is a 48-year-old female, status post admission to [facility] from 10/30-11/01/18, where she was diagnosed with alcoholic cirrhosis and ascites, underwent diagnostic and therapeutic paracentesis with removal of 1 L of fluid, and was discharged to home and advised strongly regarding alcohol cessation. Patient reports to the emergency department today stating that the fluid is returning in her abdomen. She denies abdominal pain, , nausea, or vomiting. Principal Diagnosis Alcohol abuse Cirrhosis with ascites Urinary tract infection present on admission Discharge Exam The patient appeared well nourished and normally developed. Vital signs as documented. Patient is awake and not tremulous Head exam is unremarkable. normocephalic, atraumatic Neck is without jugular venous distension, thyromegaly, or lymphademopathy Lungs are clear to auscultation and percussion. Cardiac exam reveals Rhythm is regular. First and second heart sounds normal. Abdominal exam reveals normal bowel sounds, she has a protuberant abdomen with some fluid wave present there is no caput medusa or venous varicosities seen Extremities are nonedematous and both pedal pulses are present Neurologic exam is A&Ox3, no focal deficits, strength is equal bilateral no overt signs of withdrawal Psychologically seems mildly anxious and depressed Skin is warm Dry without bruises or lesions Discharge Data Allergies Allergy/AdvReac Type Severity Reaction Status Date / Time Bactrim Allergy Severe CHEST PAIN Unverified 12/26/16 19:35 sulfamethoxazole Allergy Severe CHEST PAIN Unverified 11/17/18 20:53 trimethoprim Allergy Severe CHEST PAIN Unverified 11/17/18 20:53 Consultations 11/17/18 23:14 ED Decision to Admit Stat 11/18/18 02:06 Consult Case Management - Discharge Planning Routine Ordered Studies 11/17/18 21:02 CT abd pelvis IV con only Stat Hospital Course (1) Alcoholic cirrhosis of liver with ascites: Alcoholic cirrhosis of liver with ascites/acute on chronic alcoholic liver disease-- Patient did have 1 L of ascitic fluid removed during last admission. Study results were negative for SBP. CT of abdomen and pelvis reports volume of fluid is about the same as last CT on 10/30/18, in spite of having had 1 L of fluid removed at that time. She has tolerated spironolactone 25 mg p.o. daily. Patient is resistant to considering having a repeat paracentesis. She says she will talk with her outpatient provider about having the scheduled if need be as an outpatient but is agreeable to follow-up with [facility] gastroneurology who is seen her in the past (2) Acute on chronic alcoholic liver disease: I counseled the patient strongly about alcohol cessation she seem to have an answer for every angle I tried to promote to help her stop she is not in any withdrawal right now she wishes to be discharged (3) Alcohol abuse: Alcohol level today is 209.7. Patient did undergo extensive counseling during last admission. Nolan using alcoholic anonymous I offered to arrange outpatient psychological counseling she refused all the above and does wish to be discharged (4) E. coli UTI: Placed on ceftriaxone 1 g IV daily. Patient be placed on Cefdinir orally and a urine culture was obtained prior to discharge (5) Anxiety and depression: I offered to initiate the patient on some antidepressant medications are offering her a sleeping aid she seemed to have failed almost every suggestion I offered to her she wished to go home and she will talk with Dr. Davin Adamson at follow-up Total Time Total Time Spent Total Time Spent (In Minutes): greater than 30 minutes were required to prepare discharge Discharge Plan Discharge Items Patient Disposition: Home - Home Health Services Reason For Visit: ASCITES RECURRENCE,UTI Discharge Diagnosis: urinary infection on presentation alcohol abuse liver injury from alcohol abuse Discharge Goals: Decrease discomfort and Improve disease control Activity: Resume your previous activity Non-emergency contact: Primary Care Provider and Economics Lecturer Call non-emergency contact if: you have any medication questions Follow-up/Referrals: Kiran Cr CRNP [Nurse Practitioner] - 11/23/18 10:20 am (An appointment has been scheduled on your behalf at [facility] Phys[facility]. If you need to change the appointment please call the office directly. Thank you! ) William Bernard [Physician] - 01/09/19 3:20 pm (An appointment has been made on your behalf with Gastroenterology. If you need to change the appointment please call the office directly. Thank you! ) Diet: Low Sodium (2gm) Addtl Provider Instructions: Please consider returining to AA and to stop drinking alcohol Please [facility] your liver injury Prescriptions: New cefdinir 300 mg capsule 300 mg PO BID 5 Days Qty: 10 RF: 0 Continue spironolactone 25 mg Tablet 25 mg PO QAM 30 Days Qty: 30 RF: 3 thiamine HCl (vitamin B1) 100 mg tablet 100 mg PO DAILY Qty: 30 RF: 5 folic acid 1 mg tablet 1 mg PO DAILY Qty: 30 RF: 5 hydroxyzine HCl 25 mg tablet 25 mg PO HS PRN (Reason: Anxiety) RF: 0 Stand-Alone Forms: [facility] Discharge Orders: Discharge Order (Routine); Ordered 11/18/18 Ordered By: Deon Fraser Admission Data Admit Date/Time: 11/18/18 00:45 Attending Provider: Deon Fraser Admit Provider: Estrada Flowers Primary Care Provider: Luzma Colvin Other Providers: Estrada Flowers Service: Medical Other Interventions: Discharge Summary Assessment (RN) Last Done: 11/18/18 13:40 Pending Studies at Discharge: Yes (urine culture) DC Date/Time DO NOT enter until pt leaves facility: 11/18/18 15:20
== END 2018-11-18 15:20 | disposition home health service (06) ==
LOC: 4W 20:24 → ED 20:24 → SUATTDRO 11-18 00:45 → 4W 11-18 01:48

== ENCOUNTER 2019-02-18 04:45 | Inpatient (IN) ==
--- OUTSIDE RECORDS SUMMARY | 2019-02-18 04:47 | External Medical Summary | Continuity of Care Document ---
:1970 Author Name Nani Vick Address Unavailable Unavailable , Care Team Providers Name Role Phone [email or web address] Mariusz Vick Unavailable [email or web address] Tayo BELTRAN Unavailable [email or web address] Deniz COLVIN M.D. Unavailable Unavailable Orourke Unavailable [email or web address] OROURKE Unavailable Unavailable Unavailable Unavailable Unavailable Problems Pneumonia (486) (J18.9) Neuropathy (355.9) (G62.9) Depression with anxiety (300.4) (F41.8) Alcohol dependence (303.90) (F10.20) Rash (782.1) (R21) Nausea (787.02) (R11.0) Alcoholic hepatitis (571.1) (K70.10) Visit for screening mammogram (V76.12) (Z12.31) Encounter for screening for lipoid disorders (V77.91) (Z13.2 20) Abnormal chest x-ray (793.2) (R93.89) Magnesium deficiency (275.2) (E61.2) Ascites (789.59) (R18.8) Heartburn (787.1) (R12) Allergies and Adverse Reactions No Known Drug Allergies (Allergy) Medications Thiamine CAPS; 2 tablets once daily Refills: 0 Folic Acid 1 MG Oral Tablet; Take 1 tablet daily DO Luzma Colvin Start: 30-Dec-2015 Quantity: 30 Refills: 5 Magnesium Oxide 400 MG Oral Tablet; TAKE 1 TABLET ONCE DAILY . Start: 28-Dec-2016 Refills: 5 Multivitamin Women Oral Tablet; TAKE 1 TABLET DAILY. Start: 28-Dec-2016 Refills: 0 Cefdinir 300 MG Oral Capsule; TAKE 1 CAPSULE EVERY 12 HOURS DAILY. Start: 21-Nov-2018 Refills: 0 30 Capsule Bottle Vitamin B-12 100 MCG Oral Tablet; TAKE 1 TABLET DAILY DIR ECTED. Start: 16-Apr-2015 Refills: 0 Albuterol Sulfate (2.5 MG/3ML) 0.083% In halation Nebulization Solution; USE 1 UNIT DOSE EVERY 4-6 HOURS NEEDED FOR WHEEZING . Nicanor Vee Sta rt: 31-Dec-2016 Quantity: 1 3 ML Plas Cont (25 P las Conts) Refills: 1 Procedures History of Section Status: Comp leted History of Dilation And Curettage Status : Completed Immunizations Influenza On: 22-Nov-2014 Family History Mother Family history of hypertension (V17.49) (Z82.49) Status: Act fredy Family history of Manic, depressive (296.80) (F31.9) Status: Active Family history of cerebrovascular accident (CVA) (V17.1) (Z8 2.3) Status: Active Family history of cerebrovascular accident (V17.1) (Z82.3) S tatus: Active Father Family history of hypertension (V17.49) (Z82.49) Status: Act fredy FHx: hypercholesterolemia (V18.19) (Z83.42) Status: Active Family history of tobacco abuse (V61.42) (Z81.2) Status: Act fredy Family history of cerebrovascular accident (CVA) (V17.1) (Z8 2.3) Status: Active Family history of cerebrovascular accident (V17.1) (Z82.3) S tatus: Active Social History - Smoking Status Smoker. current status unknown Plan of Treatment Planned Observations Planned Goals not documented Results No Known Results Results not documented Encounters Appointment; Kiran Cr CRNP 11-Nov-2018 8:20 Encounter Diagnosis: Problem not documented Appointment; Henny Becerril PA-C 24-Jun-2018 11:30 Encounter Diagnosis: Problem not documented Appointment; Kat Vee M.D. 23-Mar-2017 14:00 Encounter Diagnosis: Problem not documented Appointment; Kiran Cr CRNP 23-Nov-2018 10:20 Encounter Diagnosis: Problem not documented
--- NOTE | 2019-02-18 05:22 | Emergency Department Note ---
History of Present Illness General Chief complaint: Vomiting Stated complaint: VOMITING, DIARRHEA Time Seen by Provider: 02/18/19 04:55 History of Present Illness Maximum Pain Intensity: 8 This 48-year-old presents to the ER complaining of abdominal distention with nausea vomiting and diarrhea Location: Abdomen Quality: Distended Severity: Severe Duration: Past several days Timing: Patient has cirrhosis of liver for the past few months Context: Symptoms got worse and patient came in Modifying factors: better with nothing; worse with palpation Patient is continued to drink alcohol. She states her abdomen is quite distended. Her last paracentesis was a few months ago. No history of SBP. Patient denies chest pain, dyspnea, fevers, flulike illness. Patient has not se en a GI doctor yet. Home Medications Home Medications Medication Instructions Recorded Confirmed Type folic acid 1 mg PO DAILY #30 tab 11/01/18 02/18/19 Rx thiamine HCl (vitamin B1) 100 mg PO DAILY #30 tab 11/01/18 02/18/19 Rx hydroxyzine HCl 25 mg PO HS PRN 11/17/18 02/18/19 History Fluid Pill 1 tab PO DAILY 02/18/19 02/18/19 History ibuprofen 200 mg PO Q6H PRN 02/18/19 02/18/19 History Allergies Allergy/AdvReac Type Severity Reaction Status Date / Time Bactrim Allergy Severe CHEST PAIN Unverified 12/26/16 19:35 sulfamethoxazole Allergy Severe CHEST PAIN Unverified 02/18/19 05:20 trimethoprim Allergy Severe CHEST PAIN Unverified 02/18/19 05:20 Past Med/Surg History Medical History Neuropathy (Acute) Abdominal pain Diabetes Heart disease Hypertension Asthma Bronchitis Pneumonia Alcohol withdrawal Liver disease due to alcohol Pneumonia Surgical History H/O dilation and curettage Previous section Family History Sister Drug abuse Other No significant family history Social History Preferred Language: Salvadorean Communication Ability: Effective Chief I Dispatcher Required: No Beliefs That Will Affect Care: None marital status: Current Living Situation: Spouse and Family Current Living Situation Comment: kids and grandkids Other Information That Helps Us Care for You: No Feels Safe at Home: Yes Safety Concerns: Feels Safe At This Time Smoking Status: Current every day smoker Tobacco Type: cigarettes Cigarettes Per Day: 20 Do You Dip or Chew Tobacco: No Second Hand Exposure: No Tobacco Cessation Education Requested by Patient: No Hx Alcohol Use: Yes (history of ETOH) Alcohol type: other Hx Substance Use: No Review of Systems All systems reviewed & are unremarkable except as noted in HPI & below Physical Exam Vital Signs Vital Signs - 24 hr 02/18/19 04:49 02/18/19 06:21 02/18/19 06:22 Temperature 37.1 C Temperature Source Oral Sepsis Recent Fever Within 48 Hours No Sepsis New/Unexplained Change in Mental Status No Sepsis Action Taken by Nursing No Action Required Pulse Rate 112 H 107 H 105 H Pulse Rate [Left Finger] Pulse Rate from SpO2 Sensor 106 H 106 H Pulse Strength [Left Finger] Respiratory Rate 19 17 15 Respiratory Effort / Characteristics Non-Labored Spontaneous Respiratory Depth Normal Respiratory Pattern Regular Blood Pressure 99/66 L 103/64 Blood Pressure [Left Arm] Blood Pressure Mean 77 77 Blood Pressure Mean [Left Arm] Blood Pressure Position Sitting Blood Pressure Position [Left Arm] Pulse Oximetry 98 99 100 Oxygen Delivery Method Room Air Room Air 02/18/19 06:30 02/18/19 07:14 02/18/19 09:04 Temperature Temperature Source Sepsis Recent Fever Within 48 Hours Sepsis New/Unexplained Change in Mental Status Sepsis Action Taken by Nursing Pulse Rate 108 H Pulse Rate [Left Finger] 99 H 99 H Pulse Rate from SpO2 Sensor Pulse Strength [Left Finger] Respiratory Rate 21 20 18 Respiratory Effort / Characteristics Respiratory Depth Respiratory Pattern Blood Pressure 99/71 L Blood Pressure [Left Arm] 97/64 L 97/65 L Blood Pressure Mean 80 Blood Pressure Mean [Left Arm] 75 75 Blood Pressure Position Blood Pressure Position [Left Arm] Pulse Oximetry 98 100 Oxygen Delivery Method Room Air Room Air 02/18/19 10:04 02/18/19 10:17 02/18/19 16:00 Temperature 36.5 C 36.8 C Temperature Source Oral Oral Sepsis Recent Fever Within 48 Hours Sepsis New/Unexplained Change in Mental Status Sepsis Action Taken by Nursing Pulse Rate 106 H 102 H Pulse Rate [Left Finger] 99 H 90 Pulse Rate from SpO2 Sensor Pulse Strength [Left Finger] Respiratory Rate 18 18 Respiratory Effort / Characteristics Respiratory Depth Respiratory Pattern Blood Pressure Blood Pressure [Left Arm] 105/74 95/64 L Blood Pressure Mean Blood Pressure Mean [Left Arm] 84 74 Blood Pressure Position Blood Pressure Position [Left Arm] Sitting Lying Pulse Oximetry 99 96 Oxygen Delivery Method Room Air Room Air 02/18/19 19:00 02/18/19 23:14 Temperature 36.8 C 36.7 C Temperature Source Oral Oral Sepsis Recent Fever Within 48 Hours Sepsis New/Unexplained Change in Mental Status Sepsis Action Taken by Nursing Pulse Rate Pulse Rate [Left Finger] 109 H 94 H Pulse Rate from SpO2 Sensor Pulse Strength [Left Finger] Normal Respiratory Rate 18 16 Respiratory Effort / Characteristics Respiratory Depth Normal Respiratory Pattern Blood Pressure Blood Pressure [Left Arm] 105/72 94/65 L Blood Pressure Mean Blood Pressure Mean [Left Arm] 83 74 Blood Pressure Position Blood Pressure Position [Left Arm] Sitting Pulse Oximetry 93 89 L Oxygen Delivery Method Room Air VITALS: Vitals are noted on the nurse's note and reviewed by myself. Vital signs mildly tachycardic. GENERAL: Frail appearing female appearing older than stated age, in no acute distress, nondiaphoretic, well-developed well-nourished. SKIN: The skin was without rashes, erythema, edema, or bruising. There is no tenting of the skin. Capillary reflex less than 2 seconds. HEAD: Normocephalic atraumatic. EARS: External auditory canals clear, tympanic membranes pearly brady without erythema or effusion bilaterally. EYES: Pupils equal round and reactive to light and accommodation. Conjunctivae without injection, sclerae without icterus. Extraocular movements intact. NOSE: Patent, turbinates without inflammation or discharge. MOUTH: Mucous membranes mildly dry. Pharynx without erythema or exudate. Uvul a midline. Airway patent. Tongue does not deviate. NECK: Supple without nuchal rigidity. No lymphadenopathy. No thyromegaly. Cervical spine is nontender. No JVD. HEART: Regular rate and rhythm without murmurs gallops or rubs. LUNGS: Clear to auscultation bilaterally without wheezes, rales or rhonchi. No retractions or accessory muscle use. ABDOMEN: Positive bowel sounds x 4. Normal tympanic percussion. Soft, distended with positive fluid wave, nontender, without masses or organomegaly. Fajardo sign negative. No guarding or rebound tenderness. No CVA tenderness MUSCULOSKELETAL: No muscle atrophy, erythema, or edema noted. NEURO: Patient was alert and oriented to person place and time. Normal sensation to light and sharp touch. No focal neurological deficits. Course Administered Medications Folic Acid (Folvite) 1 mg PO DAILY CHEN Stop: 03/20/19 10:07 Last Admin: 02/18/19 11:23 Dose: 1 mg Documented by: [id number] Ranitidine HCl 50 mg/ Dextrose 102 mls @ 200 mls/hr IV Q8H CHEN Stop: 03/20/19 19:59 Last Infusion: 02/18/19 21:46 Dose: 0 mls/hr Documented by: [id number] Admin: 02/18/19 20:55 Dose: 200 mls/hr Documented by: [id number] Morphine Sulfate (Morphine Sulfate) 2 mg IV Q4H PRN PRN Reason: Pain Stop: 03/04/19 14:31 Last Admin: 02/18/19 20:34 Dose: 2 mg Documented by: [id number] Admin: 02/18/19 15:26 Dose: 2 mg Documented by: [id number] Ondansetron HCl (Zofran) 4 mg IV Q6H PRN PRN Reason: Nausea Stop: 03/20/19 10:07 Last Admin: 02/18/19 15:33 Dose: 4 mg Documented by: [id number] Thiamine HCl (Vitamin B-1) 100 mg PO DAILY CHEN Stop: 03/20/19 10:07 Last Admin: 02/18/19 11:23 Dose: 100 mg Documented by: [id number] Tramadol HCl (Ultram) 50 mg PO Q6H PRN PRN Reason: Pain Stop: 03/20/19 11:36 Last Admin: 02/18/19 12:33 Dose: 50 mg Documented by: [id number] Triamcinolone Acetonide (Aristocort 0.1%) 1 appln EXT TID CHEN Stop: 03/20/19 20:59 Last Admin: 02/18/19 20:34 Dose: 1 appln Documented by: [id number] Discontinued Medications Diphenhydramine HCl (Benadryl Capsule) 25 mg PO NOW ONE Stop: 02/18/19 22:27 Last Admin: 02/18/19 22:41 Dose: 25 mg Documented by: [id number] Magnesium Sulfate/Dextrose (Magnesium Sulfate / D5w) 1 gm in 100 mls @ 100 mls/hr IV Q1H CHEN Stop: 02/18/19 08:14 Last Infusion: 02/18/19 09:01 Dose: 0 mls/hr Documented by: [id number] Admin: 02/18/19 07:43 Dose: 100 mls/hr Documented by: [id number] Infusion: 02/18/19 07:35 Dose: 0 mls/hr Documented by: [id number] Admin: 02/18/19 06:33 Dose: 100 mls/hr Documented by: [id number] Potassium Chloride (K Guille / Wtr) 10 meq in 100 mls @ 100 mls/hr IV ONE ONE Stop: 02/18/19 07:13 Last Infusion: 02/18/19 07:35 Dose: 0 mls/hr Documented by: [id number] Admin: 02/18/19 06:33 Dose: 100 mls/hr Documented by: [id number] Sodium Chloride (Nss 1000ml) 500 mls @ 999 mls/hr IV .Q31M ONE Stop: 02/18/19 06:44 Last Infusion: 02/18/19 08:01 Dose: 0 mls/hr Documented by: [id number] Admin: 02/18/19 06:33 Dose: 999 mls/hr Documented by: [id number] Ciprofloxacin (Cipro) 400 mg in 200 mls @ 200 mls/hr IV NOW STA Stop: 02/18/19 07:36 Last Infusion: 02/18/19 09:01 Dose: 0 mls/hr Documented by: [id number] Admin: 02/18/19 07:36 Dose: 200 mls/hr Documented by: [id number] Ceftriaxone Sodium (Rocephin) 1,000 mg in 50 mls @ 100 mls/hr IV NOW STA Stop: 02/18/19 07:06 Last Infusion: 02/18/19 08:01 Dose: 0 mls/hr Documented by: [id number] Admin: 02/18/19 07:36 Dose: 100 mls/hr Documented by: [id number] Multivitamins 10 ml/ Thiamine HCl 100 mg/ Folic Acid 1 mg/Sodium Chloride 1,011 .2 mls @ 1,011.2 mls/hr IV .Q1H CHEN Stop: 02/18/19 08:59 Last Infusion: 02/18/19 10:28 Dose: 0 mls/hr Documented by: [id number] Admin: 02/18/19 09:01 Dose: 1,011.2 mls/hr Documented by: [id number] Ceftriaxone Sodium 1,000 mg/ (Dextrose) 60 mls @ 100 mls/hr IV NOW STA; Protocol Stop: 02/18/19 10:44 Last Infusion: 02/18/19 12:04 Dose: 0 mls/hr Documented by: [id number] Admin: 02/18/19 11:23 Dose: 100 mls/hr Documented by: [id number] Albumin Human (Albumin 25%) 50 mls @ 100 mls/hr IV Q30M CHEN Stop: 02/18/19 14:44 Last Infusion: 02/18/19 16:00 Dose: 0 mls/hr Documented by: [id number] Admin: 02/18/19 15:16 Dose: 100 mls/hr Documented by: [id number] Infusion: 02/18/19 14:51 Dose: 100 mls/hr Documented by: [id number] Admin: 02/18/19 14:21 Dose: 100 mls/hr Documented by: [id number] Infusion: 02/18/19 14:19 Dose: 100 mls/hr Documented by: [id number] Admin: 02/18/19 13:49 Dose: 100 mls/hr Documented by: [id number] Infusion: 02/18/19 13:39 Dose: 100 mls/hr Documented by: [id number] Admin: 02/18/19 13:09 Dose: 100 mls/hr Documented by: [id number] Infusion: 02/18/19 13:05 Dose: 100 mls/hr Documented by: [id number] Admin: 02/18/19 12:35 Dose: 100 mls/hr Documented by: [id number] Infusion: 02/18/19 12:18 Dose: 100 mls/hr Documented by: [id number] Admin: 02/18/19 11:48 Dose: 100 mls/hr Documented by: [id number] Potassium Chloride (Klor-Con M10) 40 meq PO NOW STA Stop: 02/18/19 06:15 Last Admin: 02/18/19 06:27 Dose: 40 meq Documented by: [id number] Potassium Chloride (Klor-Con M20) 40 meq PO NOW STA Stop: 02/18/19 12:58 Last Admin: 02/18/19 13:47 Dose: 20 meq Documented by: [id number] Potassium Chloride (Klor-Con M20) 40 meq PO ONE ONE Stop: 02/18/19 16:01 Last Admin: 02/18/19 15:16 Dose: 40 meq Documented by: [id number] Medical Decision Making Medical Records Attestation: I reviewed the patient's medical records. Home Medications Current Medication List: was personally reviewed by me Laboratory Data Attestation: I reviewed the patient's lab results. Result diagrams: 02/18/19 12:14 02/18/19 18:00 Lab Results 02/18/19 02/18/19 02/18/19 Range/Units 05:12 05:12 05:18 WBC 27.07 H (4.8-10.8) K/uL RBC 3.03 L (4.2-5.4) M/uL Hgb 10.7 L (12.0-16.0) g/dL Hct 30.4 L (37-47) % MCV 100.3 H (80-100) fL MCH 35.3 H (25-34) pg MCHC 35.2 (32-36) g/dL RDW Std Deviation 61.2 H (36.4-46.3) fL RDW Coeff of Spenser 16.6 H (11.5-14.5) % Plt Count 379 (130-400) K/uL MPV 9.5 (7.4-10.4) fL Immature Gran % (Auto) 1.9 % Neut % (Auto) 75.9 % Lymph % (Auto) 11.5 % [place] % (Auto) 10.0 % Eos % (Auto) 0.4 % Baso % (Auto) 0.3 % Immature Gran # (Auto) 0.52 H (0.00-0.02) K/uL Neut # (Auto) 20.55 H (1.4-6.5) K/uL Lymph # (Auto) 3.11 (1.2-3.4) K/uL [place] # (Auto) 2.72 H (0.11-0.59) K/uL Eos # (Auto) 0.10 (0-0.5) K/uL Baso # (Auto) 0.07 (0-0.2) K/uL Polychromasia 1+ PT (9.0-12.0) Seconds INR (0.9-1.1) APTT (21.0-31.0) Seconds PTT Ratio Sodium (136-145) mmol/L Potassium (3.5-5.1) mmol/L Chloride (98-107) mmol/L Carbon Dioxide (21-32) mmol/L Anion Gap (3-11) BUN (7-18) mg/dl Creatinine (0.6-1.2) mg/dl Est Cr Clr Drug Dosing ml/min Est GFR ( Amer) Est GFR (Non-Af Amer) BUN/Creatinine Ratio (10-20) Glucose (70-99) mg/dl POC Glucose (70-99) POC Lactic Acid Willie (0.90-1.70) mmol/L Lactate (0.4-2.0) mmol/L Calcium (8.5-10.1) mg/dl Magnesium (1.8-2.4) mg/dl Total Bilirubin (0.2-1) mg/dl AST (15-37) U/L ALT (12-78) U/L Alkaline Phosphatase (45-117) U/L Troponin I (0-0.045) ng/ml Total Protein (6.4-8.2) gm/dl Albumin (3.4-5.0) gm/dl Globulin (2.5-4.0) gm/dl Albumin/Globulin Ratio (0.9-2) Lipase (73-393) U/L Vitamin B12 (211-911) pg/ml Folate Urine Color [place] Urine Appearance Cloudy A (Clear) Urine pH 6.5 (4.5-7.5) Ur Specific [place] 1.007 (1.000-1.030) Urine Protein Negative (Negative) Urine Glucose (UA) Negative (Negative) Urine Ketones Negative (Negative) Urine Blood Negative (Negative) Urine Nitrite Positive A (Negative) Urine Bilirubin 1+ H (Negative) Urine Urobilinogen Positive H (Negative) Ur Leukocyte Esterase Trace H (Negative) Urine WBC (Auto) 5-10 H (0-5) /hpf Urine RBC (Auto) 0-4 (0-4) /hpf U Hyaline Cast (Auto) 1-5 (0-5) /lpf U Epithel Cells (Auto) >30 H (0-5) /lpf Urine Bacteria (Auto) 4+ H (Negative) Ur Renal Epithelial Cell Not Reportable Stl C. diff Tox B Gene (Neg) Urine Opiates Screen Neg (Neg) Ur Methadone, Qual Neg (Neg) Urine Barbiturates Neg (Neg) Ur Phencyclidine (PCP) Neg (Neg) U Amphetamin/Meth Scrn Neg (Neg) MDMA (Ecstasy) Screen Neg (Neg) U Benzodiazepines Scrn Neg (Neg) Ur Cocaine Metabolite Neg (Neg) U Marijuana (THC) Screen Neg (Neg) Ethyl Alcohol mg/dL (0-3) mg/dl 02/18/19 02/18/19 02/18/19 Range/Units 05:18 05:18 05:20 WBC (4.8-10.8) K/uL RBC (4.2-5.4) M/uL Hgb (12.0-16.0) g/dL Hct (37-47) % MCV (80-100) fL MCH (25-34) pg MCHC (32-36) g/dL RDW Std Deviation (36.4-46.3) fL RDW Coeff of Spenser (11.5-14.5) % Plt Count (130-400) K/uL MPV (7.4-10.4) fL Immature Gran % (Auto) % Neut % (Auto) % Lymph % (Auto) % [place] % (Auto) % Eos % (Auto) % Baso % (Auto) % Immature Gran # (Auto) (0.00-0.02) K/uL Neut # (Auto) (1.4-6.5) K/uL Lymph # (Auto) (1.2-3.4) K/uL [place] # (Auto) (0.11-0.59) K/uL Eos # (Auto) (0-0.5) K/uL Baso # (Auto) (0-0.2) K/uL Polychromasia PT 16.1 H (9.0-12.0) Seconds INR 1.6 H (0.9-1.1) APTT 33.9 H (21.0-31.0) Seconds PTT Ratio 1.3 Sodium 125 L (136-145) mmol/L Potassium 2.8 L (3.5-5.1) mmol/L Chloride 90 L (98-107) mmol/L Carbon Dioxide 26 (21-32) mmol/L Anion Gap 9.0 (3-11) BUN 2 L (7-18) mg/dl Creatinine 0.44 L (0.6-1.2) mg/dl Est Cr Clr Drug Dosing 100.2 ml/min Est GFR ( Amer) 138.3 Est GFR (Non-Af Amer) 119.4 BUN/Creatinine Ratio 5.3 L (10-20) Glucose 97 (70-99) mg/dl POC Glucose (70-99) POC Lactic Acid Willie (0.90-1.70) mmol/L Lactate (0.4-2.0) mmol/L Calcium 7.7 L (8.5-10.1) mg/dl Magnesium 1.1 L (1.8-2.4) mg/dl Total Bilirubin 3.3 H (0.2-1) mg/dl AST 90 H (15-37) U/L ALT 21 (12-78) U/L Alkaline Phosphatase 302 H (45-117) U/L Troponin I < 0.015 (0-0.045) ng/ml Total Protein 7.2 (6.4-8.2) gm/dl Albumin 2.3 L (3.4-5.0) gm/dl Globulin 4.9 H (2.5-4.0) gm/dl Albumin/Globulin Ratio 0.5 L (0.9-2) Lipase 67 L (73-393) U/L Vitamin B12 (211-911) pg/ml Folate Urine Color Urine Appearance (Clear) Urine pH (4.5-7.5) Ur Specific [place] (1.000-1.030) Urine Protein (Negative) Urine Glucose (UA) (Negative) Urine Ketones (Negative) Urine Blood (Negative) Urine Nitrite (Negative) Urine Bilirubin (Negative) Urine Urobilinogen (Negative) Ur Leukocyte Esterase (Negative) Urine WBC (Auto) (0-5) /hpf Urine RBC (Auto) (0-4) /hpf U Hyaline Cast (Auto) (0-5) /lpf U Epithel Cells (Auto) (0-5) /lpf Urine Bacteria (Auto) (Negative) Ur Renal Epithelial Cell Stl C. diff Tox B Gene (Neg) Urine Opiates Screen (Neg) Ur Methadone, Qual (Neg) Urine Barbiturates (Neg) Ur Phencyclidine (PCP) (Neg) U Amphetamin/Meth Scrn (Neg) MDMA (Ecstasy) Screen (Neg) U Benzodiazepines Scrn (Neg) Ur Cocaine Metabolite (Neg) U Marijuana (THC) Screen (Neg) Ethyl Alcohol mg/dL < 3.0 (0-3) mg/dl 02/18/19 02/18/19 02/18/19 Range/Units 05:35 08:00 12:14 WBC (4.8-10.8) K/uL RBC (4.2-5.4) M/uL Hgb (12.0-16.0) g/dL Hct (37-47) % MCV (80-100) fL MCH (25-34) pg MCHC (32-36) g/dL RDW Std Deviation (36.4-46.3) fL RDW Coeff of Spenser (11.5-14.5) % Plt Count (130-400) K/uL MPV (7.4-10.4) fL Immature Gran % (Auto) % Neut % (Auto) % Lymph % (Auto) % [place] % (Auto) % Eos % (Auto) % Baso % (Auto) % Immature Gran # (Auto) (0.00-0.02) K/uL Neut # (Auto) (1.4-6.5) K/uL Lymph # (Auto) (1.2-3.4) K/uL [place] # (Auto) (0.11-0.59) K/uL Eos # (Auto) (0-0.5) K/uL Baso # (Auto) (0-0.2) K/uL Polychromasia PT (9.0-12.0) Seconds INR (0.9-1.1) APTT (21.0-31.0) Seconds PTT Ratio Sodium 129 L (136-145) mmol/L Potassium 3.0 L (3.5-5.1) mmol/L Chloride 97 L (98-107) mmol/L Carbon Dioxide 26 (21-32) mmol/L Anion Gap 6.0 (3-11) BUN 2 L (7-18) mg/dl Creatinine 0.42 L (0.6-1.2) mg/dl Est Cr Clr Drug Dosing 105.0 ml/min Est GFR ( Amer) 140.5 Est GFR (Non-Af Amer) 121.2 BUN/Creatinine Ratio 3.6 L (10-20) Glucose 100 H (70-99) mg/dl POC Glucose (70-99) POC Lactic Acid Willie 1.92 H (0.90-1.70) mmol/L Lactate (0.4-2.0) mmol/L Calcium 7.0 L (8.5-10.1) mg/dl Magnesium 2.0 (1.8-2.4) mg/dl Total Bilirubin 2.5 H (0.2-1) mg/dl AST 76 H (15-37) U/L ALT 17 (12-78) U/L Alkaline Phosphatase 263 H (45-117) U/L Troponin I (0-0.045) ng/ml Total Protein 6.5 (6.4-8.2) gm/dl Albumin 2.0 L (3.4-5.0) gm/dl Globulin 4.5 H (2.5-4.0) gm/dl Albumin/Globulin Ratio 0.4 L (0.9-2) Lipase (73-393) U/L Vitamin B12 (211-911) pg/ml Folate Urine Color Urine Appearance (Clear) Urine pH (4.5-7.5) Ur Specific [place] (1.000-1.030) Urine Protein (Negative) Urine Glucose (UA) (Negative) Urine Ketones (Negative) Urine Blood (Negative) Urine Nitrite (Negative) Urine Bilirubin (Negative) Urine Urobilinogen (Negative) Ur Leukocyte Esterase (Negative) Urine WBC (Auto) (0-5) /hpf Urine RBC (Auto) (0-4) /hpf U Hyaline Cast (Auto) (0-5) /lpf U Epithel Cells (Auto) (0-5) /lpf Urine Bacteria (Auto) (Negative) Ur Renal Epithelial Cell Stl C. diff Tox B Gene Negative Cdiff Gene (Neg) Urine Opiates Screen (Neg) Ur Methadone, Qual (Neg) Urine Barbiturates (Neg) Ur Phencyclidine (PCP) (Neg) U Amphetamin/Meth Scrn (Neg) MDMA (Ecstasy) Screen (Neg) U Benzodiazepines Scrn (Neg) Ur Cocaine Metabolite (Neg) U Marijuana (THC) Screen (Neg) Ethyl Alcohol mg/dL (0-3) mg/dl 02/18/19 02/18/19 02/18/19 Range/Units 12:14 12:14 12:14 WBC (4.8-10.8) K/uL RBC (4.2-5.4) M/uL Hgb (12.0-16.0) g/dL Hct (37-47) % MCV (80-100) fL MCH (25-34) pg MCHC (32-36) g/dL RDW Std Deviation (36.4-46.3) fL RDW Coeff of Spenser (11.5-14.5) % Plt Count (130-400) K/uL MPV (7.4-10.4) fL Immature Gran % (Auto) % Neut % (Auto) % Lymph % (Auto) % [place] % (Auto) % Eos % (Auto) % Baso % (Auto) % Immature Gran # (Auto) (0.00-0.02) K/uL Neut # (Auto) (1.4-6.5) K/uL Lymph # (Auto) (1.2-3.4) K/uL [place] # (Auto) (0.11-0.59) K/uL Eos # (Auto) (0-0.5) K/uL Baso # (Auto) (0-0.2) K/uL Polychromasia PT (9.0-12.0) Seconds INR (0.9-1.1) APTT (21.0-31.0) Seconds PTT Ratio Sodium (136-145) mmol/L Potassium (3.5-5.1) mmol/L Chloride (98-107) mmol/L Carbon Dioxide (21-32) mmol/L Anion Gap (3-11) BUN (7-18) mg/dl Creatinine (0.6-1.2) mg/dl Est Cr Clr Drug Dosing ml/min Est GFR ( Amer) Est GFR (Non-Af Amer) BUN/Creatinine Ratio (10-20) Glucose (70-99) mg/dl POC Glucose (70-99) POC Lactic Acid Willie (0.90-1.70) mmol/L Lactate 1.3 (0.4-2.0) mmol/L Calcium (8.5-10.1) mg/dl Magnesium (1.8-2.4) mg/dl Total Bilirubin (0.2-1) mg/dl AST (15-37) U/L ALT (12-78) U/L Alkaline Phosphatase (45-117) U/L Troponin I (0-0.045) ng/ml Total Protein (6.4-8.2) gm/dl Albumin (3.4-5.0) gm/dl Globulin (2.5-4.0) gm/dl Albumin/Globulin Ratio (0.9-2) Lipase (73-393) U/L Vitamin B12 > 2000 H (211-911) pg/ml Folate Cancelled > 24.00 Urine Color Urine Appearance (Clear) Urine pH (4.5-7.5) Ur Specific [place] (1.000-1.030) Urine Protein (Negative) Urine Glucose (UA) (Negative) Urine Ketones (Negative) Urine Blood (Negative) Urine Nitrite (Negative) Urine Bilirubin (Negative) Urine Urobilinogen (Negative) Ur Leukocyte Esterase (Negative) Urine WBC (Auto) (0-5) /hpf Urine RBC (Auto) (0-4) /hpf U Hyaline Cast (Auto) (0-5) /lpf U Epithel Cells (Auto) (0-5) /lpf Urine Bacteria (Auto) (Negative) Ur Renal Epithelial Cell Stl C. diff Tox B Gene (Neg) Urine Opiates Screen (Neg) Ur Methadone, Qual (Neg) Urine Barbiturates (Neg) Ur Phencyclidine (PCP) (Neg) U Amphetamin/Meth Scrn (Neg) MDMA (Ecstasy) Screen (Neg) U Benzodiazepines Scrn (Neg) Ur Cocaine Metabolite (Neg) U Marijuana (THC) Screen (Neg) Ethyl Alcohol mg/dL (0-3) mg/dl 02/18/19 02/18/19 02/18/19 Range/Units 12:14 12:14 18:00 WBC 25.00 H (4.8-10.8) K/uL RBC 3.00 L (4.2-5.4) M/uL Hgb 10.8 L (12.0-16.0) g/dL Hct 30.1 L (37-47) % MCV 100.3 H (80-100) fL MCH 36.0 H (25-34) pg MCHC 35.9 (32-36) g/dL RDW Std Deviation 60.2 H (36.4-46.3) fL RDW Coeff of Spenser 16.4 H (11.5-14.5) % Plt Count 339 (130-400) K/uL MPV 9.1 (7.4-10.4) fL Immature Gran % (Auto) % Neut % (Auto) % Lymph % (Auto) % [place] % (Auto) % Eos % (Auto) % Baso % (Auto) % Immature Gran # (Auto) (0.00-0.02) K/uL Neut # (Auto) (1.4-6.5) K/uL Lymph # (Auto) (1.2-3.4) K/uL [place] # (Auto) (0.11-0.59) K/uL Eos # (Auto) (0-0.5) K/uL Baso # (Auto) (0-0.2) K/uL Polychromasia PT (9.0-12.0) Seconds INR (0.9-1.1) APTT (21.0-31.0) Seconds PTT Ratio Sodium 131 L (136-145) mmol/L Potassium 3.5 D (3.5-5.1) mmol/L Chloride 98 (98-107) mmol/L Carbon Dioxide 25 (21-32) mmol/L Anion Gap 8.0 (3-11) BUN 2 L (7-18) mg/dl Creatinine 0.43 L (0.6-1.2) mg/dl Est Cr Clr Drug Dosing 102.5 ml/min Est GFR ( Amer) 139.4 Est GFR (Non-Af Amer) 120.3 BUN/Creatinine Ratio 4.7 L (10-20) Glucose 79 (70-99) mg/dl POC Glucose (70-99) POC Lactic Acid [place] (0.90-1.70) mmol/L Lactate (0.4-2.0) mmol/L Calcium 8.0 L (8.5-10.1) mg/dl Magnesium (1.8-2.4) mg/dl Total Bilirubin (0.2-1) mg/dl AST (15-37) U/L ALT (12-78) U/L Alkaline Phosphatase (45-117) U/L Troponin I < 0.015 < 0.015 (0-0.045) ng/ml Total Protein (6.4-8.2) gm/dl Albumin (3.4-5.0) gm/dl Globulin (2.5-4.0) gm/dl Albumin/Globulin Ratio (0.9-2) Lipase (73-393) U/L Vitamin B12 (211-911) pg/ml Folate Urine Color Urine Appearance (Clear) Urine pH (4.5-7.5) Ur Specific [place] (1.000-1.030) Urine Protein (Negative) Urine Glucose (UA) (Negative) Urine Ketones (Negative) Urine Blood (Negative) Urine Nitrite (Negative) Urine Bilirubin (Negative) Urine Urobilinogen (Negative) Ur Leukocyte Esterase (Negative) Urine WBC (Auto) (0-5) /hpf Urine RBC (Auto) (0-4) /hpf U Hyaline Cast (Auto) (0-5) /lpf U Epithel Cells (Auto) (0-5) /lpf Urine Bacteria (Auto) (Negative) Ur Renal Epithelial Cell Stl C. diff Tox B Gene (Neg) Urine Opiates Screen (Neg) Ur Methadone, Qual (Neg) Urine Barbiturates (Neg) Ur Phencyclidine (PCP) (Neg) U Amphetamin/Meth Scrn (Neg) MDMA (Ecstasy) Screen (Neg) U Benzodiazepines Scrn (Neg) Ur Cocaine Metabolite (Neg) U Marijuana (THC) Screen (Neg) Ethyl Alcohol mg/dL (0-3) mg/dl 02/18/19 Range/Units 20:09 WBC (4.8-10.8) K/uL RBC (4.2-5.4) M/uL Hgb (12.0-16.0) g/dL Hct (37-47) % MCV (80-100) fL MCH (25-34) pg MCHC (32-36) g/dL RDW Std Deviation (36.4-46.3) fL RDW Coeff of Spenser (11.5-14.5) % Plt Count (130-400) K/uL MPV (7.4-10.4) fL Immature Gran % (Auto) % Neut % (Auto) % Lymph % (Auto) % [place] % (Auto) % Eos % (Auto) % Baso % (Auto) % Immature Gran # (Auto) (0.00-0.02) K/uL Neut # (Auto) (1.4-6.5) K/uL Lymph # (Auto) (1.2-3.4) K/uL [place] # (Auto) (0.11-0.59) K/uL Eos # (Auto) (0-0.5) K/uL Baso # (Auto) (0-0.2) K/uL Polychromasia PT (9.0-12.0) Seconds INR (0.9-1.1) APTT (21.0-31.0) Seconds PTT Ratio Sodium (136-145) mmol/L Potassium (3.5-5.1) mmol/L Chloride (98-107) mmol/L Carbon Dioxide (21-32) mmol/L Anion Gap (3-11) BUN (7-18) mg/dl Creatinine (0.6-1.2) mg/dl Est Cr Clr Drug Dosing ml/min Est GFR ( Amer) Est GFR (Non-Af Amer) BUN/Creatinine Ratio (10-20) Glucose (70-99) mg/dl POC Glucose 89 (70-99) POC Lactic Acid Willie (0.90-1.70) mmol/L Lactate (0.4-2.0) mmol/L Calcium (8.5-10.1) mg/dl Magnesium (1.8-2.4) mg/dl Total Bilirubin (0.2-1) mg/dl AST (15-37) U/L ALT (12-78) U/L Alkaline Phosphatase (45-117) U/L Troponin I (0-0.045) ng/ml Total Protein (6.4-8.2) gm/dl Albumin (3.4-5.0) gm/dl Globulin (2.5-4.0) gm/dl Albumin/Globulin Ratio (0.9-2) Lipase (73-393) U/L Vitamin B12 (211-911) pg/ml Folate Urine Color Urine Appearance (Clear) Urine pH (4.5-7.5) Ur Specific [place] (1.000-1.030) Urine Protein (Negative) Urine Glucose (UA) (Negative) Urine Ketones (Negative) Urine Blood (Negative) Urine Nitrite (Negative) Urine Bilirubin (Negative) Urine Urobilinogen (Negative) Ur Leukocyte Esterase (Negative) Urine WBC (Auto) (0-5) /hpf Urine RBC (Auto) (0-4) /hpf U Hyaline Cast (Auto) (0-5) /lpf U Epithel Cells (Auto) (0-5) /lpf Urine Bacteria (Auto) (Negative) Ur Renal Epithelial Cell Stl C. diff Tox B Gene (Neg) Urine Opiates Screen (Neg) Ur Methadone, Qual (Neg) Urine Barbiturates (Neg) Ur Phencyclidine (PCP) (Neg) U Amphetamin/Meth Scrn (Neg) MDMA (Ecstasy) Screen (Neg) U Benzodiazepines Scrn (Neg) Ur Cocaine Metabolite (Neg) U Marijuana (THC) Screen (Neg) Ethyl Alcohol mg/dL (0-3) mg/dl Imaging Data Attestation: I personally reviewed and interpreted this imaging study as follows: MDM Narrative Prior records/ancillary studies reviewed and summarized above. Nursing notes reviewed. Additional history obtained from family. The patient's history was concerning for abdominal distention with known history of cirrhosis with ascites. Differential diagnosis: Etiologies such as SBP, ascites, alcoholism, metabolic, infection, hypo/hyperglycemia, electrolyte abnormalities, cardiac sources, intracerebral event, toxicologic, neurologic, as well as others were entertained. Physical examination: As above. ER treatment provided: IV Lock Potassium, magnesium IV On reassessment the patient felt better. Diagnostics interpretation by me: ECG: Normal sinus, normal intervals, T wave inversions in the inferior and lateral leads, rate of 108, EKG compared to prior EKG with new T wave inversions. Impression sinus tachycardia with T wave inversions in the inferior and lateral leads interpreted by myself I think arrhythmia is unlikely. EKG shows normal sinus rhythm with no interval abnormalities such as QT prolongation or WPW. There are no findings to suggest Brugada syndrome. Cardiac monitoring in the emergency department reveals no tachycardic or bradycardic dysrhythmia. Hypertrophic cardiomyopathy was considered but there are no clear historical elements pointing toward this. EKG is not suggestive. The QRS voltage is not extremely large and there are no suggestive Q waves. The labs revealed hypokalemia, hypomagnesia, lactic 1.95 Leukocytosis Blood cultures pending Imaging studies: Chest x-ray with no acute consolidation, pneumothorax or free air per my interpretation Study: Survey abdominal ultrasound HISTORY: Cirrhosis. Ascites. FINDINGS: Mild abdominal and pelvic ascites. IMPRESSION: Mild abdominal and pelvic ascites. Electronically signed by: Kang Benitez M.D. 02/18/2019 6:23 AM Dictated: 02/18/19621 Transcribed: 02/18/19621 Consultation: A consultation was placed with the hospitalist, Dr. Rivera. The case was discussed and diagnostics were reviewed. The patient was evaluated in the ER for further treatment. Exam and history seem consistent with cirrhosis with ascites with liver disease progression as the INR is more prolonged 1.6 today along w/ Hypokalemia, hypomagnesia and hyponatremia. Potassium and magnesium replaced as above. Medicine was consulted. Patient agrees to treatment plan of admission. By the evaluation outlined above emergent etiologies such as cardiac sources, intracerebral event, toxologic, neurologic, abnormalities blood glucose, as well as others were deemed relatively unlikely. The pt informed about the findings as listed above. All questions were answered and pleased with the treatment. The chart was completed utilizing [employer] Speech voice recognition software. Grammatical errors, random word insertions, pronoun errors, and incomplete sentences are an occassional consequence of this system due to software limitations, ambient noise, and hardware issues. Any formal questions or concerns about the content, text, or information contained within the body of this dictation should be directly addressed to the physician assistant hairstylist for clarification. Impression & Plan Ascites due to alcoholic cirrhosis, Hypomagnesemia, Hypokalemia, Acute hyponatremia Discharge Plan Visit Data *Final* Discharge Date/Time: 02/18/19 09:37 Chief Complaint: Vomiting Stated Complaint: VOMITING, DIARRHEA ED Provider: Jeannette Jasmine ED Midlevel Provider: Shantell Becerril Discharge Problem: Ascites due to alcoholic cirrhosis, Hypomagnesemia, Hypokalemia, Acute hyponatremia Patient Disposition: Admitted As Inpatient Condition: Fair Discharge Instructions Interventions: ED Discharge Assessment Last Done: 02/18/19 09:37
[2019-02-18 05:44] LABS: Hematocrit (blood only) 30.4 % (37-47); Hemoglobin 10.7 g/dL (12.0-16.0); Mean Corpuscular Hgb Conc 35.2 g/dL (32-36); Mean Corpuscular Volume 100.3 fL (80-100); Mean Platelet Volume 9.5 fL (7.4-10.4); Platelet Count 379 K/uL (130-400); RDW Coefficient of Variation 16.6 % (11.5-14.5); RDW Standard Deviation 61.2 fL (36.4-46.3); Red Blood Count 3.03 M/uL (4.2-5.4); White Blood Count 27.07 K/uL (4.8-10.8)
[2019-02-18 05:55] LABS: INR 1.6 (0.9-1.1); Partial Thromboplastin Ratio 1.3; Partial Thromboplastin Time 33.9 Seconds (21.0-31.0); Prothrombin Time 16.1 Seconds (9.0-12.0)
[2019-02-18 06:05] LABS: Amphetamines+Metham, Urine Neg (Neg); Barbiturates, Urine Neg (Neg); Benzodiazepine, Urine Neg (Neg); Cocaine, Urine Neg (Neg); MDMA (Ecstacy), Urine Neg (Neg); Methadone, Urine Neg (Neg); Opiate, Urine Neg (Neg); Phencyclidine, Urine Neg (Neg)
[2019-02-18 06:06] LABS: Alanine Aminotransferase 21 U/L (12-78); Albumin Level 2.3 gm/dl (3.4-5.0); Aspartate Aminotransferase 90 U/L (15-37); BUN Creatinine Ratio 5.3 (10-20); Blood Urea Nitrogen 2 mg/dl (7-18); Calcium 7.7 mg/dl (8.5-10.1); Carbon Dioxide 26 mmol/L (21-32); Chloride 90 mmol/L (98-107); Creatinine Clr Calc Pharmacy 100.2 ml/min; Est GFR (African American) 138.3; Est GFR (Non-African American) 119.4; Glucose 97 mg/dl (70-99); Magnesium 1.1 mg/dl (1.8-2.4); Potassium 2.8 mmol/L (3.5-5.1); Sodium 125 mmol/L (136-145)
[2019-02-18 06:11] LABS: Albumin Globulin Ratio 0.5 (0.9-2); Alkaline Phosphatase 302 U/L (45-117); Bilirubin,Total 3.3 mg/dl (0.2-1); Globulin 4.9 gm/dl (2.5-4.0); Total Protein 7.2 gm/dl (6.4-8.2); Troponin I < 0.015 ng/ml (0-0.045)
[2019-02-18] MEDS ORDERED: SODIUM CHLORIDE 0.9% 1000ML 500 ML IV ONE (06:14)
[2019-02-18] MEDS ORDERED: POTASSIUM CHLORIDE 10 MEQ TABCR PO STA (06:14)
[2019-02-18] MEDS ORDERED: POTASSIUM CHLORIDE / WTR 10 MEQ/100 ML PLCT IV ONE (06:14)
--- NOTE | 2019-02-18 06:19 | XRay Report ---
XR chest 1V portable CLINICAL HISTORY: epi pain pain COMPARISON STUDY: 10/30/2018 FINDINGS: The bones soft tissues and hemidiaphragms are normal. The cardiomediastinal silhouette is n ormal. The lungs are clear. The pulmonary vasculature is normal. IMPRESSION: Negative chest. The above report was generated using voice recognition software. It may contain grammatical, syntax or spelling errors. Electronically signed by: Kang Benitez M.D. 02/18/2019 6:17 AM
[2019-02-18 06:20] LABS: Basophils # (auto) 0.07 K/uL (0-0.2); Basophils % (auto) 0.3 %; Eosinophils % (auto) 0.4 %; Immature Granulocytes # (auto) 0.52 K/uL (0.00-0.02); Immature Granulocytes % (auto) 1.9 %; Lymphocytes # (auto) 3.11 K/uL (1.2-3.4); Lymphocytes % (auto) 11.5 %; Monocytes # (auto) 2.72 K/uL (0.11-0.59); Neutrophils # (auto) 20.55 K/uL (1.4-6.5); Neutrophils % (auto) 75.9 %; Polychromasia 1+
--- NOTE | 2019-02-18 06:24 | Ultrasound Report ---
Study: Survey abdominal ultrasound HISTORY: Cirrhosis. Ascites. FINDINGS: Mild abdominal and pelvic ascites. IMPRESSION: Mild abdominal and pelvic ascites. Electronically signed by: Kang Benitez M.D. 02/18/2019 6:23 AM
[2019-02-18 06:25] LABS: Appearance Urine Cloudy (Clear); Bacteria Urine Automated 4+ (Negative); Blood Urine Negative (Negative); Color Urine Orange; Epithelial Cell Urine Auto >30 /lpf (0-5); Glucose Urine UA Negative (Negative); Ketones Urine Negative (Negative); Leukocyte Esterase Urine Trace (Negative); Nitrite Urine Positive (Negative); Protein Urine Negative (Negative); RBC Urine Automated 0-4 /hpf (0-4); Specific Gravity Urine 1.007 (1.000-1.030); Urobilinogen Urine Positive (Negative); pH Urine 6.5 (4.5-7.5)
[2019-02-18 06:26] LABS: Bilirubin Urine 1+ (Negative)
[2019-02-18] MEDS: MAGNESIUM SULFATE / D5W 1 GM/100 ML BAG IV SCH ×2 (06:33→07:43)
[2019-02-18] MEDS ORDERED: CIPROFLOXACIN 400 MG/200 ML BAG IV STA (06:37)
[2019-02-18] MEDS ORDERED: cefTRIAXone SODIUM 1,000 MG/50 ML BAG IV STA (06:37)
[2019-02-18] MEDS ORDERED: MULTI-VITAMIN INFUSION 10 ML, THIAMINE HCL 100 MG, FOLIC ACID 1 MG in SODIUM CHLORIDE 0... IV SCH (08:00)
--- NOTE | 2019-02-18 09:05 | History & Physical Report ---
Date of Service February 18, 2019 Assessment & Plan (1) Ascites due to alcoholic cirrhosis: - Presented with abd bloating in setting of ascites; had paracentesis in Oct 2018, no further procedures. - Abd US showed mild ascites in abdomen. - Ceftriaxone 2 gm IV q24hr for coverage of SBP. - Limit IV fluids; will give Albumin IV. - Hold diuretics in setting of hypotension/acute infection. - Will likely require paracentesis during this admission. - Monitor net I/O's and daily weights. - Tramadol prn pain; will also add Morphine 2 mg IV q4hr -- avoid increasing narcotics if possible. (2) Nausea vomiting and diarrhea: - May be related to viral gastroenteritis vs. ascites vs. other. - Zofran and Compazine prn N/V. - C. diff negative; Stool cultures pending collection. - Received IV fluids at admission. (3) Acute hyponatremia: - Na level 125 -- expect improvement with IV fluid hydration. - Repeat level at 12:00 then monitor q6hr. (4) Electrolyte abnormality: - K level 2.8 -- received KCl in the ED; repeat level pending at 12:00. - Mag level 1.1 -- received Mag IV in the ED; repeat level pending at 12:00. - Monitor levels closely. (5) Elevated LFTs: - In setting of ETOH abuse, cirrhosis. - Monitor LFTs qAM. (6) Leukocytosis: - WBC 27 -- may be related to acute UTI vs. other. - Monitor CBC qAM. (7) UTI (urinary tract infection): - U/a was positive; UC and BC pending. - Will continue Ceftriaxone IV for empiric coverage. (8) Acute anemia: - Hgb level 10.7; will trend qAM - Folate and B12 level are both pending -- has elevated MCV level. (9) Prolonged INR: - INR level 1.6 in setting of cirrhosis. - Consider course of Vit K. - No evidence of active bleeding at this time. (10) Acute electrocardiogram changes: - T wave changes noted on EKG. - Trop was negative; will trend q6hr. - Repeat EKG in the morning. (11) ETOH abuse: - ETOH use fluctuates per patient -- has been drinking 3 glasses vodka per day per patient. - ETOH level was undetectable at admission; last drink was on 02/17/19. - AWSS protocol ordered with Ativan prn. - No evidence of acute withdrawal at this time. - Banana bag in the ED; continue thiamine and folic acid. (12) Rash: - Noted on back, unclear etiology. - Will continue to monitor. (13) Lumbar pain: - Lumbar spine XR negative. - Avoid NSAIDs in setting of heavy ETOH use; avoid Tylenol due to cirrhosis and LFTs. - Tramadol 50 mg q6hr prn pain. (14) Asthma: - Not currently on any medications. (15) Hypertension: - Not currently on any medications. - Has been hypotensive in the ED, received IV fluids. (16) Neuropathy: - Not currently on any medications. (17) DVT prophylaxis: - SCDs; hold pharmacologic ppx in setting of prolonged INR and possible procedure. Dispo: Med/surg with telemetry. History of Present Illness Chief Complaint: Nausea/Vomiting Primary Care Provider: Luzma Colvin DO Mrs. Nunn is a 48 year old female with past medical history of neuropathy, asthma, ETOH abuse, cirrhosis with ascites who presented to the ED with persistent nausea/vomiting. Pt. states she developed nausea/vomiting ~3 days ago. PO intake has been limited due to symptoms. She also has intermittent diarrhea. Has increased abdominal bloating over the last two weeks -- pt. has h/o ascites in setting of cirrhosis and did have an US guided paracentesis on 10/31/18. She has had issues with recurrent ascites but did not have a repeat paracentesis. She states fluid has been building up in her abdomen over the last two weeks leading to increased SOB and discomfort. Pt. would be agreeable to a paracentesis during this admission. She has suprapubic pain but denies dysuria, hematuria, urinary frequency. Has lower back pain -- started ~3 days ago. She fell at home after stepping in the mud. Denies radiation of pain down legs, urinary retention or incontinence. Denies fever/chills, URI symptoms, LE edema, headache, chest pain. She smokes 1/2 - 1 PPD at home depending on her stress level. ETOH intake fluctuates -- she has been drinking more recently due to the of a close family member. Pt. reports she has been drinking 3 glasses of vodka/cranberry at home. Last drink was yesterday evening. ER course: Labs showed elevated LFTs, leukocytosis, significant electrolyte abnormalities. U/a positive; UC and BC are pending. Ultrasound showed mild ascites. Plan to admit for further evaluation. Allergies Allergy/AdvReac Type Severity Reaction Status Date / Time Bactrim Allergy Severe CHEST PAIN Unverified 12/26/16 19:35 sulfamethoxazole Allergy Severe CHEST PAIN Unverified 02/18/19 05:20 trimethoprim Allergy Severe CHEST PAIN Unverified 02/18/19 05:20 Home Medications Home Medications Medication Instructions Recorded Confirmed Type folic acid 1 mg PO DAILY #30 tab 11/01/18 02/18/19 Rx thiamine HCl (vitamin B1) 100 mg PO DAILY #30 tab 11/01/18 02/18/19 Rx hydroxyzine HCl 25 mg PO HS PRN 11/17/18 02/18/19 History Fluid Pill 1 tab PO DAILY 02/18/19 02/18/19 History ibuprofen 200 mg PO Q6H PRN 02/18/19 02/18/19 History Past Med/Surg History Medical History Neuropathy (Acute) Abdominal pain Diabetes Heart disease Hypertension Asthma Bronchitis Pneumonia Alcohol withdrawal Liver disease due to alcohol Pneumonia Surgical History H/O dilation and curettage Previous section Family History Sister Drug abuse Other No significant family history Social History Preferred Language: Sami Communication Ability: Effective Optimization Consultant Required: No Beliefs That Will Affect Care: None marital status: Current Living Situation: Spouse and Family Current Living Situation Comment: kids and grandkids Other Information That Helps Us Care for You: No Feels Safe at Home: Yes Safety Concerns: Feels Safe At This Time Smoking Status: Current every day smoker Tobacco Type: cigarettes Cigarettes Per Day: 20 Do You Dip or Chew Tobacco: No Second Hand Exposure: No Tobacco Cessation Education Requested by Patient: No Hx Alcohol Use: Yes (history of ETOH) Alcohol type: other Hx Substance Use: No Review of Systems Review of Systems: All systems reviewed & are unremarkable except as noted in HPI & below Constitutional: + chills, + fatigue, + weakness and + anorexia; no fever Ear, Nose, Mouth, Throat: no nasal congestion, no nasal discharge and no sore throat Respiratory: + dyspnea on exertion; no cough, no dyspnea and no wheezing Cardiovascular: no chest pain, no radiating jaw, neck or arm pain, no palpitations, no lightheadedness, no syncope and no edema Gastrointestinal: + abdominal pain, + bloating, + nausea and + vomiting; no constipation and no diarrhea/loose stools Genitourinary: no dysuria, no difficulty urinating and no hematuria Musculoskeletal: + back pain (Low back pain ); no radicular pain, no joint pain, no myalgia and no body aches Integumentary: + rash (Back ), + erythema and + pruritus; no non-healing lesions Neurologic: no dizziness and no headache(s) Allergy / Immunological: + rash Physical Exam Physical Exam: General: Resting comfortably in no apparent distress HEENT: NC/AT; PERRLA with EOMI; [place] conjunctiva, MMM. No erythema of posterior pharynx Neck: Supple and nontender Cardiac: Tachycardic. Lungs: CTA bilaterally; No rhonchi, wheezing, or rales Abdomen: Significant abd distention; Bowel normoactive X 4; Firm, tender to palpation over majority of abdomen. Rectal: Deferred : Deferred Back: NO spinous tenderness Extremities: Warm. No edema present Neuro: No focal weakness Skin: erythematous papular lesions on back. Results & Data Vital Signs (Past 12 Hours) Vital Signs Temp Pulse Pulse Resp BP BP Pulse Ox 02/18/19 07:14 99 H 20 97/64 L 98 02/18/19 06:30 108 H 21 99/71 L 02/18/19 06:22 105 H 15 100 02/18/19 06:21 107 H 17 103/64 99 02/18/19 04:49 37.1 C 112 H 19 99/66 L 98 Laboratory Results 02/18/19 02/18/19 02/18/19 Range/Units 08:00 05:35 05:20 WBC (4.8-10.8) K/uL RBC (4.2-5.4) M/uL Hgb (12.0-16.0) g/dL Hct (37-47) % MCV (80-100) fL MCH (25-34) pg MCHC (32-36) g/dL RDW Std Deviation (36.4-46.3) fL RDW Coeff of Spenser (11.5-14.5) % Plt Count (130-400) K/uL MPV (7.4-10.4) fL Immature Gran % (Auto) % Neut % (Auto) % Lymph % (Auto) % [place] % (Auto) % Eos % (Auto) % Baso % (Auto) % Immature Gran # (Auto) (0.00-0.02) K/uL Neut # (Auto) (1.4-6.5) K/uL Lymph # (Auto) (1.2-3.4) K/uL [place] # (Auto) (0.11-0.59) K/uL Eos # (Auto) (0-0.5) K/uL Baso # (Auto) (0-0.2) K/uL Polychromasia PT (9.0-12.0) Seconds INR (0.9-1.1) APTT (21.0-31.0) Seconds PTT Ratio Sodium (136-145) mmol/L Potassium (3.5-5.1) mmol/L Chloride (98-107) mmol/L Carbon Dioxide (21-32) mmol/L Anion Gap (3-11) BUN (7-18) mg/dl Creatinine (0.6-1.2) mg/dl Est Cr Clr Drug Dosing ml/min Est GFR ( Amer) Est GFR (Non-Af Amer) BUN/Creatinine Ratio (10-20) Glucose (70-99) mg/dl POC Lactic Acid Willie 1.92 H (0.90-1.70) mmol/L Calcium (8.5-10.1) mg/dl Magnesium (1.8-2.4) mg/dl Total Bilirubin (0.2-1) mg/dl AST (15-37) U/L ALT (12-78) U/L Alkaline Phosphatase (45-117) U/L Troponin I (0-0.045) ng/ml Total Protein (6.4-8.2) gm/dl Albumin (3.4-5.0) gm/dl Globulin (2.5-4.0) gm/dl Albumin/Globulin Ratio (0.9-2) Lipase (73-393) U/L Urine Color Urine Appearance (Clear) Urine pH (4.5-7.5) Ur Specific [place] (1.000-1.030) Urine Protein (Negative) Urine Glucose (UA) (Negative) Urine Ketones (Negative) Urine Blood (Negative) Urine Nitrite (Negative) Urine Bilirubin (Negative) Urine Urobilinogen (Negative) Ur Leukocyte Esterase (Negative) Urine WBC (Auto) (0-5) /hpf Urine RBC (Auto) (0-4) /hpf U Hyaline Cast (Auto) (0-5) /lpf U Epithel Cells (Auto) (0-5) /lpf Urine Bacteria (Auto) (Negative) Ur Renal Epithelial Cell Stl C. diff Tox B Gene Pending Urine Opiates Screen (Neg) Ur Methadone, Qual (Neg) Urine Barbiturates (Neg) Ur Phencyclidine (PCP) (Neg) U Amphetamin/Meth Scrn (Neg) MDMA (Ecstasy) Screen (Neg) U Benzodiazepines Scrn (Neg) Ur Cocaine Metabolite (Neg) U Marijuana (THC) Screen (Neg) Ethyl Alcohol mg/dL < 3.0 (0-3) mg/dl 02/18/19 02/18/19 02/18/19 Range/Units 05:18 05:18 05:18 WBC 27.07 H (4.8-10.8) K/uL RBC 3.03 L (4.2-5.4) M/uL Hgb 10.7 L (12.0-16.0) g/dL Hct 30.4 L (37-47) % MCV 100.3 H (80-100) fL MCH 35.3 H (25-34) pg MCHC 35.2 (32-36) g/dL RDW Std Deviation 61.2 H (36.4-46.3) fL RDW Coeff of Spens[place] 16.6 H (11.5-14.5) % Plt Count 379 (130-400) K/uL MPV 9.5 (7.4-10.4) fL Immature Gran % (Auto) 1.9 % Neut % (Auto) 75.9 % Lymph % (Auto) 11.5 % [place] % (Auto) 10.0 % Eos % (Auto) 0.4 % Baso % (Auto) 0.3 % Immature Gran # (Auto) 0.52 H (0.00-0.02) K/uL Neut # (Auto) 20.55 H (1.4-6.5) K/uL Lymph # (Auto) 3.11 (1.2-3.4) K/uL [place] # (Auto) 2.72 H (0.11-0.59) K/uL Eos # (Auto) 0.10 (0-0.5) K/uL Baso # (Auto) 0.07 (0-0.2) K/uL Polychromasia 1+ PT 16.1 H (9.0-12.0) Seconds INR 1.6 H (0.9-1.1) APTT 33.9 H (21.0-31.0) Seconds PTT Ratio 1.3 Sodium 125 L (136-145) mmol/L Potassium 2.8 L (3.5-5.1) mmol/L Chloride 90 L (98-107) mmol/L Carbon Dioxide 26 (21-32) mmol/L Anion Gap 9.0 (3-11) BUN 2 L (7-18) mg/dl Creatinine 0.44 L (0.6-1.2) mg/dl Est Cr Clr Drug Dosing 100.2 ml/min Est GFR ( Amer) 138.3 Est GFR (Non-Af Amer) 119.4 BUN/Creatinine Ratio 5.3 L (10-20) Glucose 97 (70-99) mg/dl POC Lactic Acid Willie (0.90-1.70) mmol/L Calcium 7.7 L (8.5-10.1) mg/dl Magnesium 1.1 L (1.8-2.4) mg/dl Total Bilirubin 3.3 H (0.2-1) mg/dl AST 90 H (15-37) U/L ALT 21 (12-78) U/L Alkaline Phosphatase 302 H (45-117) U/L Troponin I < 0.015 (0-0.045) ng/ml Total Protein 7.2 (6.4-8.2) gm/dl Albumin 2.3 L (3.4-5.0) gm/dl Globulin 4.9 H (2.5-4.0) gm/dl Albumin/Globulin Ratio 0.5 L (0.9-2) Lipase 67 L (73-393) U/L Urine Color Urine Appearance (Clear) Urine pH (4.5-7.5) Ur Specific [place] (1.000-1.030) Urine Protein (Negative) Urine Glucose (UA) (Negative) Urine Ketones (Negative) Urine Blood (Negative) Urine Nitrite (Negative) Urine Bilirubin (Negative) Urine Urobilinogen (Negative) Ur Leukocyte Esterase (Negative) Urine WBC (Auto) (0-5) /hpf Urine RBC (Auto) (0-4) /hpf U Hyaline Cast (Auto) (0-5) /lpf U Epithel Cells (Auto) (0-5) /lpf Urine Bacteria (Auto) (Negative) Ur Renal Epithelial Cell Stl C. diff Tox B Gene Urine Opiates Screen (Neg) Ur Methadone, Qual (Neg) Urine Barbiturates (Neg) Ur Phencyclidine (PCP) (Neg) U Amphetamin/Meth Scrn (Neg) MDMA (Ecstasy) Screen (Neg) U Benzodiazepines Scrn (Neg) Ur Cocaine Metabolite (Neg) U Marijuana (THC) Screen (Neg) Ethyl Alcohol mg/dL (0-3) mg/dl 02/18/19 02/18/19 Range/Units 05:12 05:12 WBC (4.8-10.8) K/uL RBC (4.2-5.4) M/uL Hgb (12.0-16.0) g/dL Hct (37-47) % MCV (80-100) fL MCH (25-34) pg MCHC (32-36) g/dL RDW Std Deviation (36.4-46.3) fL RDW Coeff of Spenser (11.5-14.5) % Plt Count (130-400) K/uL MPV (7.4-10.4) fL Immature Gran % (Auto) % Neut % (Auto) % Lymph % (Auto) % [place] % (Auto) % Eos % (Auto) % Baso % (Auto) % Immature Gran # (Auto) (0.00-0.02) K/uL Neut # (Auto) (1.4-6.5) K/uL Lymph # (Auto) (1.2-3.4) K/uL [place] # (Auto) (0.11-0.59) K/uL Eos # (Auto) (0-0.5) K/uL Baso # (Auto) (0-0.2) K/uL Polychromasia PT (9.0-12.0) Seconds INR (0.9-1.1) APTT (21.0-31.0) Seconds PTT Ratio Sodium (136-145) mmol/L Potassium (3.5-5.1) mmol/L Chloride (98-107) mmol/L Carbon Dioxide (21-32) mmol/L Anion Gap (3-11) BUN (7-18) mg/dl Creatinine (0.6-1.2) mg/dl Est Cr Clr Drug Dosing ml/min Est GFR ( Amer) Est GFR (Non-Af Amer) BUN/Creatinine Ratio (10-20) Glucose (70-99) mg/dl POC Lactic Acid Willie (0.90-1.70) mmol/L Calcium (8.5-10.1) mg/dl Magnesium (1.8-2.4) mg/dl Total Bilirubin (0.2-1) mg/dl AST (15-37) U/L ALT (12-78) U/L Alkaline Phosphatase (45-117) U/L Troponin I (0-0.045) ng/ml Total Protein (6.4-8.2) gm/dl Albumin (3.4-5.0) gm/dl Globulin (2.5-4.0) gm/dl Albumin/Globulin Ratio (0.9-2) Lipase (73-393) U/L Urine Color [place] Urine Appearance Cloudy A (Clear) Urine pH 6.5 (4.5-7.5) Ur Specific [place] 1.007 (1.000-1.030) Urine Protein Negative (Negative) Urine Glucose (UA) Negative (Negative) Urine Ketones Negative (Negative) Urine Blood Negative (Negative) Urine Nitrite Positive A (Negative) Urine Bilirubin 1+ H (Negative) Urine Urobilinogen Positive H (Negative) Ur Leukocyte Esterase Trace H (Negative) Urine WBC (Auto) 5-10 H (0-5) /hpf Urine RBC (Auto) 0-4 (0-4) /hpf U Hyaline Cast (Auto) 1-5 (0-5) /lpf U Epithel Cells (Auto) >30 H (0-5) /lpf Urine Bacteria (Auto) 4+ H (Negative) Ur Renal Epithelial Cell Not Reportable Stl C. diff Tox B Gene Urine Opiates Screen Neg (Neg) Ur Methadone, Qual Neg (Neg) Urine Barbiturates Neg (Neg) Ur Phencyclidine (PCP) Neg (Neg) U Amphetamin/Meth Scrn Neg (Neg) MDMA (Ecstasy) Screen Neg (Neg) U Benzodiazepines Scrn Neg (Neg) Ur Cocaine Metabolite Neg (Neg) U Marijuana (THC) Screen Neg (Neg) Ethyl Alcohol mg/dL (0-3) mg/dl Code Status & VTE Plan Code Status FULL CODE Supervising Physician Co-Signing Physician Notes Attending Attestation and Admission Note: Pt seen/examined, chart reviewed, care plan d/w VIVIEN Gómez. I agree w/ the aguilera components of her admission documentation. 48yo female with alcoholism and cirrhosis 2nd to such presenting with worsening abdominal distension, nausea, emesis, rash on back, diarrhea, abdominal pain, back pain. She has been under stress of late - grandmother 2-3 weeks ago - started binge drinking again at that time. She also stopped all of her medications including her diuretics at that time. Presented today with evidence of UTI, hyponatremic dehydration, low K and mag, and elevated WBC count. PMH, PSH, allergies, meds, sochx, famhx, ros - reviewed vitals - BPs low or low-normal, no fever gen - looks older than stated age, a/o x 3, no signs of intoxication or withdrawal eyes - icteric sclera mouth - MM dry heart - RRR, s1, s2, no murmur lungs - CTA b/l abd - marked distension with caput, ascites, no HSM, nontender ext - no edema, thin legs, pulses 2+ b/l skin - no jaundice; erythematous papules on back only labs - wbc count elevated to 25 Na 125 with repeat later today 129 low k and low mag u/a highly suggestive of UTI t. bili 3 INR 1.6 Madrey's discriminant function <30 u/s abdomen - mild ascites (my reading -- at least moderate ascites in b/l lower quadrants) A/P: 1. alcoholic cirrhosis with decompensation 2. acute alcoholic hepatitis in setting of #1 3. ongoing alcohol abuse 4. probable alcoholic gastritis and/or esophagitis 5. rash on back 6. hyponatremia, hypokalemia, hypomagnesemia 7. noncompliance 8. UTI 9. concern for SBP 10. diarrhea empiric rocephin for UTI and also to cover for #9 will need diagnostic/therapeutic paracentesis limited amount of IVF for #6 if more volume is needed for BP consider IV albumin and/or midodrine replace low K and low mag triamcinolone cream 0.1% for back IV zantac for #4 no role for steroids at this time for #2 (Ronnie's discriminant function does not meet criteria) serial LFTs etoh withdrawal protocol, thiamine, etc daily labs consider psych consult social work consult - rehab?? Jordin Lind MD
[2019-02-18] MEDS ORDERED: PROCHLORPERAZINE 10 MG in SYRINGE 8 ML IV PRN (10:08)
[2019-02-18] MEDS ORDERED: LORazepam 1 MG/2 ML VIAL IV PRN (10:08)
[2019-02-18] MEDS ORDERED: cefTRIAXone SODIUM 1,000 MG in DEXTROSE 5% 50 ML IV STA (10:09)
[2019-02-18] MEDS ORDERED: ALBUMIN 25% 100 ML IV SCH (10:30)
--- NOTE | 2019-02-18 10:44 | XRay Report ---
XR lumbar spine 2-3V CLINICAL HISTORY: Acute lumbar pain pain COMPARISON STUDY: No previous studies for comparison. FINDINGS: Vertebral body stature is normal. No evidence for compression deformity. Disc spaces are we ll-preserved. Findings consistent with an old healed fracture of the sacrococcygeal junction. No acute process of t hat region is appreciated. IMPRESSION: No acute process. The above report was generated using voice recognition software. It may contain grammatical, syntax or spelling errors. Electronically signed by: Kang Benitez M.D. 02/18/2019 10:43 AM
[2019-02-18] MEDS: FOLIC ACID 1 MG TAB PO SCH (11:23)
[2019-02-18] MEDS: THIAMINE HCL 100 MG TAB PO SCH (11:23)
[2019-02-18] MEDS ORDERED: TRAMADOL HCL 50 MG TABLET PO PRN (11:37)
[2019-02-18] MEDS ORDERED: ALBUMIN 25% 50 ML IV SCH (11:45)
[2019-02-18] MEDS: ALBUMIN 25% 50 ML IV SCH ×6 (11:48→15:16)
[2019-02-18 12:24] LABS: Hematocrit (blood only) 30.1 % (37-47); Hemoglobin 10.8 g/dL (12.0-16.0); Mean Corpuscular Hgb Conc 35.9 g/dL (32-36); Mean Corpuscular Volume 100.3 fL (80-100); Mean Platelet Volume 9.1 fL (7.4-10.4); Platelet Count 339 K/uL (130-400); RDW Coefficient of Variation 16.4 % (11.5-14.5); RDW Standard Deviation 60.2 fL (36.4-46.3)
[2019-02-18 12:53] LABS: BUN Creatinine Ratio 3.6 (10-20); Est GFR (African American) 140.5; Est GFR (Non-African American) 121.2
[2019-02-18] MEDS ORDERED: POTASSIUM CHLORIDE 20 MEQ TABCR PO STA (12:57)
[2019-02-18 13:01] LABS: Albumin Globulin Ratio 0.4 (0.9-2); Bilirubin,Total 2.5 mg/dl (0.2-1); Globulin 4.5 gm/dl (2.5-4.0); Total Protein 6.5 gm/dl (6.4-8.2)
[2019-02-18 13:28] LABS: Vitamin B12 > 2000 pg/ml (211-911)
[2019-02-18 13:29] LABS: Folate (Folic Acid) > 24.00 ng/ml (>5.38)
[2019-02-18] MEDS: MoRPHine SULFATE 2 MG/ML CARP IV PRN ×2 (15:26→20:34)
[2019-02-18] MEDS: ONDANSETRON INJ 2 MG/ML 2 ML VIAL IV PRN (15:33)
[2019-02-18] MEDS ORDERED: POTASSIUM CHLORIDE 20 MEQ TABCR PO ONE (16:00)
[2019-02-18 18:34] LABS: BUN Creatinine Ratio 4.7 (10-20); Blood Urea Nitrogen 2 mg/dl (7-18); Carbon Dioxide 25 mmol/L (21-32); Chloride 98 mmol/L (98-107); Creatinine Clr Calc Pharmacy 102.5 ml/min; Est GFR (African American) 139.4; Est GFR (Non-African American) 120.3; Glucose 79 mg/dl (70-99); Potassium 3.5 mmol/L (3.5-5.1); Sodium 131 mmol/L (136-145); Troponin I < 0.015 ng/ml (0-0.045)
[2019-02-18] MEDS: TRIAMCINOLONE ACET 0.1% CR 80 GM TUBE EXT SCH (20:34)
[2019-02-19 01:03] LABS: BUN Creatinine Ratio 4.3 (10-20); Calcium 7.5 mg/dl (8.5-10.1); Creatinine Clr Calc Pharmacy 100.2 ml/min; Est GFR (African American) 138.3; Est GFR (Non-African American) 119.4; Potassium 3.7 mmol/L (3.5-5.1)
[2019-02-19] MEDS: MoRPHine SULFATE 2 MG/ML CARP IV PRN ×2 (05:14→12:54)
[2019-02-19 06:39] LABS: Hematocrit (blood only) 24.8 % (37-47); Hemoglobin 8.4 g/dL (12.0-16.0); Mean Corpuscular Hgb Conc 33.9 g/dL (32-36); Mean Corpuscular Volume 104.2 fL (80-100); Mean Platelet Volume 9.4 fL (7.4-10.4); Platelet Count 295 K/uL (130-400); RDW Coefficient of Variation 16.8 % (11.5-14.5); RDW Standard Deviation 63.8 fL (36.4-46.3); Red Blood Count 2.38 M/uL (4.2-5.4)
[2019-02-19 06:55] LABS: INR 1.6 (0.9-1.1); Prothrombin Time 16.1 Seconds (9.0-12.0)
[2019-02-19 07:15] LABS: BUN Creatinine Ratio 4.2 (10-20); Calcium 7.9 mg/dl (8.5-10.1); Creatinine Clr Calc Pharmacy 105.1 ml/min; Est GFR (African American) 135.4; Est GFR (Non-African American) 116.8; Potassium 3.9 mmol/L (3.5-5.1)
[2019-02-19 07:19] LABS: Albumin Globulin Ratio 0.9 (0.9-2); Bilirubin,Total 3.1 mg/dl (0.2-1); Globulin 3.2 gm/dl (2.5-4.0); Total Protein 6.2 gm/dl (6.4-8.2)
[2019-02-19] MEDS: TRIAMCINOLONE ACET 0.1% CR 80 GM TUBE EXT SCH ×3 (08:36→20:39)
[2019-02-19] MEDS: FOLIC ACID 1 MG TAB PO SCH (08:37)
[2019-02-19] MEDS: THIAMINE HCL 100 MG TAB PO SCH (08:37)
[2019-02-19] MEDS: cefTRIAXone SODIUM 2,000 MG in DEXTROSE 5% 50 ML IV SCH (08:49)
[2019-02-19] MEDS ORDERED: IBUPROFEN 200 MG TAB PO ONE (12:30)
[2019-02-19] MEDS: ONDANSETRON INJ 2 MG/ML 2 ML VIAL IV PRN (12:54)
[2019-02-19] MEDS: NICOTINE 14 MG/24 HR PATCH TD SCH (13:24)
--- NOTE | 2019-02-19 13:29 | Hospitalist Progress Note ---
Date of Service February 19, 2019 Assessment & Plan (1) Ascites due to alcoholic cirrhosis: - S/p paracentesis Oct 2018 with removal of 1L peritoneal fluid. - Abd US showed mild ascites in abdomen; CT A/P pending to eval for amount of ascites present. - Ceftriaxone 2 gm IV q24hr for coverage of SBP. - Received IV Albumin on 02/18. - Hold diuretics in setting of hypotension/acute infection. - May require US guided paracentesis in radiology on Tuesday 02/20 if no improvement in pain/bloating. - Monitor daily weights -- increased by ~10 kg, is likely not accurate. - Tramadol and Morphine prn pain. (2) Nausea vomiting and diarrhea: - May be related to viral infection vs. ascites; now improved. - Zofran and Compazine prn N/V. - C. diff negative; Stool cultures pending collection. (3) Acute hyponatremia: - Na level improved to 132. - Monitor qAM. (4) Elevated LFTs: - In setting of ETOH abuse, cirrhosis. - Monitor LFTs qAM -- T. bili trending up, other LFTs stable. (5) Leukocytosis: - WBC 27 at admission -- was likely related to infection (UTI) - Monitor CBC qAM -- improved to 19.3 (6) UTI (urinary tract infection): - U/a was positive; UC pos for gram negative bacillli, blood cultures are pending. - Continue Ceftriaxone IV for empiric coverage. (7) Acute anemia: - Hgb level trending down, was 8.4 today -- may be partially dilutional vs. concern for acute bleeding. - Folate and B12 levels were both elevated. - Will repeat CBC at 17:00; may require transfusion support if hgb <7.5. - CT A/P ordered in setting of hematuria to evaluate for source. (8) Prolonged INR: - INR level 1.6 in setting of cirrhosis. - Consider course of Vit K. (9) Acute electrocardiogram changes: - T wave changes noted on EKG at admission, stable on EKG this morning. - Trop negative x 3. (10) ETOH abuse: - ETOH use fluctuates per patient -- has been drinking 3 glasses vodka per day per patient. - ETOH level was undetectable at admission; last drink was on 02/17/19. - AWSS protocol ordered with Ativan prn. - No evidence of acute withdrawal at this time. - Continue thiamine and folic acid. 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 - Start Acyclovir 400 mg TID -- plan for 5-7 day course. (12) Rash: - Noted on back, may be related to contact dermatitis vs. other. - Apply topical triamcinolone cream TID. (13) Lumbar pain: - Lumbar spine XR negative. - Avoid heavy NSAID use in setting of ETOH abuse; Tylenol contraindicated due to LFTs/cirrhosis. - Tramadol & Morphine prn pain. (14) Asthma: - Not currently on any medications. (15) Hypertension: - Not currently on any medications. - Has been hypotensive throughout admission. (16) Neuropathy: - Not currently on any medications. (17) Tobacco abuse: - Nicotine patch ordered. - Encourage tobacco cessation. (18) Electrolyte abnormality: - No replacement required today, will monitor qAM. (19) DVT prophylaxis: - SCDs; hold pharmacologic ppx in setting of prolonged INR and possible paracentesis over next 24 hours. Dispo: Med/surg for pain control & treatment of ascites. Supervising Physician Co-Signing Physician Notes Attending Attestastion: Chart reviewed in detail, care plan d/w PA Shellie Gómez. I agree with the aguilera components of her documentation. 48yo with alcoholic cirrhosis with UTI, significant abdominal distension due to ascites, and multiple electrolyte disturbances. Urine cx growing GNR. Cont rocephin 2 gm daily to cover UTI and possible SBP. Plan for diagnostic/therapeutic paracentesis in AM - consult radiology for such. Cont to monitor for etoh withdrawal. Jordin Lind MD Subjective Pt. has ongoing abd pain/distention this morning, no improvement. Abd pain located on right side of abdomen extending to lower abdomen. Appetite is poor due to ascites. Has not had a BM since admission. Complains of a headache. Pt. has hematuria -- may be related to UTI. No h/o kidney stones. Will obtain CT A/P for evaluation of hematuria and volume of ascites. Review of Systems Review of Systems: All systems reviewed & are unremarkable except as noted in HPI & below Constitutional: no fever, no chills, no fatigue, no weakness and no anorexia Respiratory: no cough, no dyspnea, no dyspnea on exertion and no wheezing Cardiovascular: no chest pain, no palpitations and no edema Gastrointestinal: + abdominal pain, + bloating and + constipation; no nausea and no vomiting Genitourinary: + hematuria; no dysuria and no difficulty urinating Musculoskeletal: no back pain and no joint pain Integumentary: + rash (Back ), + erythema (Back ) and + pruritus (Back ); no non-healing lesions Allergy / Immunological: + rash Physical Exam Physical Exam: General: Resting comfortably in no apparent distress HEENT: NC/AT; PERRLA with EOMI; [place] conjunctiva, MMM. No erythema of posterior pharynx Neck: Supple and nontender Cardiac: RRR Lungs: CTA bilaterally; No rhonchi, wheezing, or rales Abdomen: Significant abd distention, no loom changer last 24 hours; Bowel normoactive X 4; Firm, TTP over right side abd and suprapubic region. Extremities: Warm. No edema present Neuro: No focal weakness Skin: erythematous papular lesions on back, unchanged. Results & Data Vital Signs (Past 12 Hours) Vital Signs Temp Pulse Resp BP Pulse Ox 02/19/19 12:00 36.9 C 78 18 100/68 91 02/19/19 08:10 37.0 C 101 H 18 91/54 L 93 02/19/19 03:36 36.8 C 103 H 22 98/67 L 95 Laboratory Results 02/19/19 02/19/19 02/19/19 Range/Units 07:26 06:12 06:12 WBC 19.30 H (4.8-10.8) K/uL RBC 2.38 L (4.2-5.4) M/uL Hgb 8.4 L (12.0-16.0) g/dL Hct 24.8 L (37-47) % MCV 104.2 H (80-100) fL MCH 35.3 H (25-34) pg MCHC 33.9 (32-36) g/dL RDW Std Deviation 63.8 H (36.4-46.3) fL RDW Coeff of Spenser 16.8 H (11.5-14.5) % Plt Count 295 (130-400) K/uL MPV 9.4 (7.4-10.4) fL PT 16.1 H (9.0-12.0) Seconds INR 1.6 H (0.9-1.1) Sodium (136-145) mmol/L Potassium (3.5-5.1) mmol/L Chloride (98-107) mmol/L Carbon Dioxide (21-32) mmol/L Anion Gap (3-11) BUN (7-18) mg/dl Creatinine (0.6-1.2) mg/dl Est Cr Clr Drug Dosing ml/min Est GFR ( Amer) Est GFR (Non-Af Amer) BUN/Creatinine Ratio (10-20) Glucose (70-99) mg/dl POC Glucose 101 H (70-99) Calcium (8.5-10.1) mg/dl Total Bilirubin (0.2-1) mg/dl AST (15-37) U/L ALT (12-78) U/L Alkaline Phosphatase (45-117) U/L Troponin I (0-0.045) ng/ml Total Protein (6.4-8.2) gm/dl Albumin (3.4-5.0) gm/dl Globulin (2.5-4.0) gm/dl Albumin/Globulin Ratio (0.9-2) Vitamin B12 (211-911) pg/ml Folate (>5.38) ng/ml 02/19/19 02/19/19 02/18/19 Range/Units 06:12 00:15 20:09 WBC (4.8-10.8) K/uL RBC (4.2-5.4) M/uL Hgb (12.0-16.0) g/dL Hct (37-47) % MCV (80-100) fL MCH (25-34) pg MCHC (32-36) g/dL RDW Std Deviation (36.4-46.3) fL RDW Coeff of Spenser (11.5-14.5) % Plt Count (130-400) K/uL MPV (7.4-10.4) fL PT (9.0-12.0) Seconds INR (0.9-1.1) Sodium 132 L 131 L (136-145) mmol/L Potassium 3.9 3.7 (3.5-5.1) mmol/L Chloride 101 100 (98-107) mmol/L Carbon Dioxide 25 25 (21-32) mmol/L Anion Gap 7.0 6.0 (3-11) BUN 2 L 2 L (7-18) mg/dl Creatinine 0.47 L 0.44 L (0.6-1.2) mg/dl Est Cr Clr Drug Dosing 105.1 100.2 ml/min Est GFR ( Amer) 135.4 138.3 Est GFR (Non-Af Amer) 116.8 119.4 BUN/Creatinine Ratio 4.2 L 4.3 L (10-20) Glucose 87 83 (70-99) mg/dl POC Glucose 89 (70-99) Calcium 7.9 L 7.5 L (8.5-10.1) mg/dl Total Bilirubin 3.1 H (0.2-1) mg/dl AST 86 H (15-37) U/L ALT 16 (12-78) U/L Alkaline Phosphatase 191 H (45-117) U/L Troponin I (0-0.045) ng/ml Total Protein 6.2 L (6.4-8.2) gm/dl Albumin 3.0 L (3.4-5.0) gm/dl Globulin 3.2 (2.5-4.0) gm/dl Albumin/Globulin Ratio 0.9 (0.9-2) Vitamin B12 (211-911) pg/ml Folate (>5.38) ng/ml 02/18/19 02/18/19 Range/Units 18:00 12:14 WBC (4.8-10.8) K/uL RBC (4.2-5.4) M/uL Hgb (12.0-16.0) g/dL Hct (37-47) % MCV (80-100) fL MCH (25-34) pg MCHC (32-36) g/dL RDW Std Deviation (36.4-46.3) fL RDW Coeff of Spenser (11.5-14.5) % Plt Count (130-400) K/uL MPV (7.4-10.4) fL PT (9.0-12.0) Seconds INR (0.9-1.1) Sodium 131 L (136-145) mmol/L Potassium 3.5 D (3.5-5.1) mmol/L Chloride 98 (98-107) mmol/L Carbon Dioxide 25 (21-32) mmol/L Anion Gap 8.0 (3-11) BUN 2 L (7-18) mg/dl Creatinine 0.43 L (0.6-1.2) mg/dl Est Cr Clr Drug Dosing 102.5 ml/min Est GFR ( Amer) 139.4 Est GFR (Non-Af Amer) 120.3 BUN/Creatinine Ratio 4.7 L (10-20) Glucose 79 (70-99) mg/dl POC Glucose (70-99) Calcium 8.0 L (8.5-10.1) mg/dl Total Bilirubin (0.2-1) mg/dl AST (15-37) U/L ALT (12-78) U/L Alkaline Phosphatase (45-117) U/L Troponin I < 0.015 (0-0.045) ng/ml Total Protein (6.4-8.2) gm/dl Albumin (3.4-5.0) gm/dl Globulin (2.5-4.0) gm/dl Albumin/Globulin Ratio (0.9-2) Vitamin B12 > 2000 H (211-911) pg/ml Folate > 24.00 (>5.38) ng/ml
[2019-02-19] MEDS ORDERED: IOVERSOL 100ml IV PRN (15:52)
--- NOTE | 2019-02-19 16:04 | CT Scan Report ---
CT abdomen pelvis wo/w con CLINICAL HISTORY: Hematuria COMPARISON STUDY: November 17, 2018 TECHNIQUE: Unenhanced images were obtained to the abdomen and pelvis. The patient was injected with 5 0 cc Optiray 320. After 5 minute delay, the patient is rescanned in a dynamic helical fashion during intravenous administration of additional 44 cc of Optiray 320. A dose lowering technique was utilize d adhering to the principles of ALARA. CT DOSE: 615.77 mGy.cm FINDINGS: Lower chest: There are small bilateral pleural effusions with basilar airspace opacities statisticall y atelectatic. Liver: There are liver is enlarged. There is CT evidence for hepatic steatosis and fibrosis with tara ed heterogeneous enhancement. The liver has a cirrhotic morphology. Gallbladder: Unremarkable. Spleen: Top normal in size Pancreas: Unremarkable. Adrenal glands: Unremarkable. Kidneys: No renal, ureteral, or bladder calculi are visualized. No solid renal masses are visualized. No collecting system lesions are delineated. Bowel: There are no transition zones to indicate bowel obstruction. The appendix appears normal. Ther e is no acute diverticulitis. Peritoneum: There is a large volume of ascites. This has increased when compared the November study. There is no free intraperitoneal air Vasculature: The abdominal aorta is normal in course and caliber. Adenopathy: None. Pelvic viscera: The bladder, and pelvic viscera are unremarkable. Skeletal structures: No destructive osseous lesions are seen. IMPRESSION: 1. No evidence of bowel obstruction. No evidence of free air 2. Hepatomegaly. Cirrhotic morphology of the liver. Heterogeneous hepatic steatosis. 3. No evidence of bowel obstruction. No evidence of free air 4. Large volume of ascites 5. No renal, ureteral, or bladder calculi identified. No renal masses identified. 6. Small bilateral pleural effusions Electronically signed by: Pramod Sue M.D. 02/19/2019 4:03 PM
[2019-02-19 17:30] LABS: Hemoglobin 9.5 g/dL (12.0-16.0)
[2019-02-19] MEDS: ACYCLOVIR 400 MG TAB PO SCH (20:39)
[2019-02-20 07:36] LABS: Hematocrit (blood only) 27.5 % (37-47); Hemoglobin 9.3 g/dL (12.0-16.0); Mean Corpuscular Hgb Conc 33.8 g/dL (32-36); Mean Corpuscular Volume 104.2 fL (80-100); Mean Platelet Volume 9.4 fL (7.4-10.4); Platelet Count 278 K/uL (130-400); RDW Coefficient of Variation 16.7 % (11.5-14.5); RDW Standard Deviation 63.7 fL (36.4-46.3); Red Blood Count 2.64 M/uL (4.2-5.4); White Blood Count 22.86 K/uL (4.8-10.8)
[2019-02-20] MEDS: ACYCLOVIR 400 MG TAB PO SCH ×3 (07:43→20:53)
[2019-02-20] MEDS: cefTRIAXone SODIUM 2,000 MG in DEXTROSE 5% 50 ML IV SCH (07:43)
[2019-02-20] MEDS: THIAMINE HCL 100 MG TAB PO SCH (07:43)
[2019-02-20] MEDS: TRIAMCINOLONE ACET 0.1% CR 80 GM TUBE EXT SCH ×3 (07:43→20:18)
[2019-02-20] MEDS: FOLIC ACID 1 MG TAB PO SCH (07:43)
[2019-02-20] MEDS: NICOTINE 14 MG/24 HR PATCH TD SCH (07:44)
[2019-02-20 07:45] LABS: INR 1.6 (0.9-1.1); Prothrombin Time 16.2 Seconds (9.0-12.0)
[2019-02-20] MEDS ORDERED: POLYETHYLENE (MIRALAX) 17 GM PACK PO PRN (07:57)
[2019-02-20 08:08] LABS: Albumin Level 2.8 gm/dl (3.4-5.0); BUN Creatinine Ratio 3.9 (10-20); Bilirubin Direct 1.4 mg/dl (0-0.2); Calcium 8.3 mg/dl (8.5-10.1); Creatinine Clr Calc Pharmacy 86.7 ml/min; Est GFR (African American) 127.1; Est GFR (Non-African American) 109.6; Potassium 3.7 mmol/L (3.5-5.1)
[2019-02-20 08:13] LABS: Bilirubin,Total 2.3 mg/dl (0.2-1); Total Protein 6.4 gm/dl (6.4-8.2)
[2019-02-20] MEDS: DOCUSATE SODIUM/SENNA 50/8.6MG TAB PO SCH ×2 (08:25→20:54)
[2019-02-20] MEDS ORDERED: ALBUMIN 25% 50 ML IV SCH (09:00)
--- NOTE | 2019-02-20 12:37 | Hospitalist Progress Note ---
Date of Service February 20, 2019 Assessment & Plan (1) Ascites due to alcoholic cirrhosis: - S/p paracentesis Oct 2018 with removal of 1L peritoneal fluid. - Abd US showed mild ascites in abdomen; CT A/P showed large amount of ascites, no other acute abnormality. - Continue Ceftriaxone 2 gm IV q24hr for coverage of SBP. - Hold diuretics in setting of hypotension. - Therapeutic/diagnostic US guided paracentesis with removal of 3L fluid completed today; will give Albumin IV following procedure. - Cell count via peritoneal fluid to rule out SBP is pending. - Monitor daily weights -- weight was increased ~10 kg (?accuracy) but is now trending down. - Tramadol and Morphine prn pain. (2) Nausea vomiting and diarrhea: - May be related to viral infection vs. ascites, now resolved. - Zofran and Compazine prn N/V. - C. diff negative; Stool cultures are pending. (3) Acute hyponatremia: - Na level now improved, was 132 this morning. - Monitor qAM. (4) Elevated LFTs: - In setting of ETOH abuse, cirrhosis. - Monitor LFTs qAM -- remain elevated but are stable, likely at home baseline. (5) Leukocytosis: - WBC 27 at admission -- was improving with treatment of UTI but now trending up again. - Monitor CBC qAM. (6) UTI (urinary tract infection): - UC positive for Klebsiella and Citrobacter. - Continue Ceftriaxone IV (per sensitivities) (7) Acute anemia: - Hgb level was trending down, likely related to dilution from IV fluids. - Folate and B12 levels were both elevated. - H/H now stable, monitor frequently. (8) Prolonged INR: - INR level 1.6 in setting of cirrhosis. - No indication for treatment with Vit K. (9) Acute electrocardiogram changes: - T wave changes noted on EKG at admission, repeat EKG on 02/19 with no ab normalities. - Trop was negative x 3. (10) ETOH abuse: - ETOH use fluctuates per patient -- has been drinking 3 glasses vodka per day per patient. - ETOH level was undetectable at admission; last drink was on 02/17/19. - AWSS protocol; has no evidence of withdrawal. - Continue thiamine and folic acid. (11) Herpes simplex: - Oral HSV noted on physical exam. - Acyclovir 400 mg TID -- plan for 5-7 day course. (12) Rash: - Noted on back, may be related to contact dermatitis vs. other. - Erythema is now improving. - Topical triamcinolone cream TID. (13) Lumbar pain: - Lumbar spine XR negative. - Avoid heavy NSAID use in setting of ETOH abuse; Tylenol contraindicated due to LFTs/cirrhosis. - Tramadol & Morphine prn pain. (14) Tobacco abuse: - Nicotine patch ordered. - Encourage tobacco cessation. (15) Electrolyte abnormality: - No replacement required, monitor qAM. (16) DVT prophylaxis: - SCDs; hold pharmacologic ppx in setting of prolonged INR and for planned paracentesis. Dispo: Med/surg for treatment of ascites. Discharge pending improvement in pain control. Subjective Pt. has increased right sided abd pain but has not required morphine IV dose recently. Lower abd pain is now improved. Is having BMs, denies urinary retenti on. Had mild SOB overnight, likely related to ascites. Ascites increased, pt. reports feeling like she is 9 months . She is very tearful during visit today, stating she is overwhelmed by acute issues. Plan for therapeutic US guided paracentesis today. Will need to monitor BP closely in setting of hypotension/planned paracentesis. Review of Systems Review of Systems: All systems reviewed & are unremarkable except as noted in HPI & below Constitutional: no fever, no chills, no fatigue and no weakness Respiratory: + dyspnea; no cough, no dyspnea on exertion and no wheezing Cardiovascular: no chest pain, no palpitations, no lightheadedness and no edema Gastrointestinal: + abdominal pain and + bloating; no nausea, no vomiting, no constipation and no diarrhea/loose stools Genitourinary: no difficulty urinating Musculoskeletal: no back pain and no joint pain Integumentary: no non-healing lesions Allergy / Immunological: no rash Physical Exam Physical Exam: General: Resting comfortably in no apparent distress HEENT: NC/AT; PERRLA with EOMI; [place] conjunctiva, MMM. No erythema of posterior pharynx Neck: Supple and nontender Cardiac: RRR Lungs: CTA bilaterally; No rhonchi, wheezing, or rales Abdomen: Increased abd distention; Bowel normoactive X 4; Very firm, TTP over right side of abdomen. Extremities: Warm. No edema present Neuro: No focal weakness Skin: erythematous papular lesions on back now improving. Results & Data Vital Signs (Past 12 Hours) Vital Signs Temp Pulse Resp BP BP Pulse Ox 02/20/19 08:00 36.7 C 74 16 97/62 L 98 02/20/19 05:11 36.8 C 66 18 90/53 L 91 Laboratory Results 02/20/19 02/20/19 02/20/19 Range/Units 07:20 07:20 07:20 WBC 22.86 H (4.8-10.8) K/uL RBC 2.64 L (4.2-5.4) M/uL Hgb 9.3 L (12.0-16.0) g/dL Hct 27.5 L (37-47) % MCV 104.2 H (80-100) fL MCH 35.2 H (25-34) pg MCHC 33.8 (32-36) g/dL RDW Std Deviation 63.7 H (36.4-46.3) fL RDW Coeff of Spenser 16.7 H (11.5-14.5) % Plt Count 278 (130-400) K/uL MPV 9.4 (7.4-10.4) fL PT 16.2 H (9.0-12.0) Seconds INR 1.6 H (0.9-1.1) Sodium 132 L (136-145) mmol/L Potassium 3.7 (3.5-5.1) mmol/L Chloride 101 (98-107) mmol/L Carbon Dioxide 24 (21-32) mmol/L Anion Gap 7.0 (3-11) BUN 2 L (7-18) mg/dl Creatinine 0.57 L (0.6-1.2) mg/dl Est Cr Clr Drug Dosing 86.7 ml/min Est GFR ( Amer) 127.1 Est GFR (Non-Af Amer) 109.6 BUN/Creatinine Ratio 3.9 L (10-20) Glucose 87 (70-99) mg/dl Calcium 8.3 L (8.5-10.1) mg/dl Total Bilirubin 2.3 H (0.2-1) mg/dl Direct Bilirubin 1.4 H (0-0.2) mg/dl AST 90 H (15-37) U/L ALT 18 (12-78) U/L Alkaline Phosphatase 219 H (45-117) U/L Total Protein 6.4 (6.4-8.2) gm/dl Albumin 2.8 L (3.4-5.0) gm/dl 02/19/19 Range/Units 16:48 WBC (4.8-10.8) K/uL RBC (4.2-5.4) M/uL Hgb 9.5 L (12.0-16.0) g/dL Hct 27.0 L (37-47) % MCV (80-100) fL MCH (25-34) pg MCHC (32-36) g/dL RDW Std Deviation (36.4-46.3) fL RDW Coeff of Spenser (11.5-14.5) % Plt Count (130-400) K/uL MPV (7.4-10.4) fL PT (9.0-12.0) Seconds INR (0.9-1.1) Sodium (136-145) mmol/L Potassium (3.5-5.1) mmol/L Chloride (98-107) mmol/L Carbon Dioxide (21-32) mmol/L Anion Gap (3-11) BUN (7-18) mg/dl Creatinine (0.6-1.2) mg/dl Est Cr Clr Drug Dosing ml/min Est GFR ( Amer) Est GFR (Non-Af Amer) BUN/Creatinine Ratio (10-20) Glucose (70-99) mg/dl Calcium (8.5-10.1) mg/dl Total Bilirubin (0.2-1) mg/dl Direct Bilirubin (0-0.2) mg/dl AST (15-37) U/L ALT (12-78) U/L Alkaline Phosphatase (45-117) U/L Total Protein (6.4-8.2) gm/dl Albumin (3.4-5.0) gm/dl
[2019-02-20] MEDS: ALBUMIN 25% 50 ML IV SCH ×6 (12:41→20:46)
--- NOTE | 2019-02-20 16:26 | Ultrasound Report ---
PARACENTESIS UNDER ULTRASOUND GUIDANCE CLINICAL HISTORY: Ascites COMPARISON STUDY: No previous studies for comparison. FINDINGS: The risks, benefits, and alternatives to the procedure were discussed with the patient. Wri dejan informed consent was obtained. Following real-time ultrasound localization, the skin was prepped and draped. Following local anesthesia with Xylocaine, the sheath paracentesis needle was inserted a nd approximately 3 liters of straw-colored fluid was removed by vacuum suction. A left lower quadrant approach was utilized. The patient tolerated the procedure well and left the department in satisfactory condition. IMPRESSION: Successful ultrasound-guided paracentesis with removal of approximately 3 liters of ascit ic fluid. Electronically signed by: Pramod Sue M.D. 02/20/2019 4:25 PM
[2019-02-20 17:08] LABS: Glucose Peritoneal Fluid 96 mg/dl
[2019-02-20 17:13] LABS: LDH Peritoneal Fluid 51 U/L
[2019-02-20 17:36] LABS: Appearance Peritoneal Fluid CLEAR; Color Peritoneal Fluid YELLOW; Mononuclear WBC Peritoneal 78.7 %; Polynuclear WBC Peritoneal 21.3 %; RBC Peritoneal Fluid (A) < 3000 /uL; WBC Peritoneal Fluid (A) 192 /ul (0-300)
[2019-02-20] MEDS: MoRPHine SULFATE 2 MG/ML CARP IV PRN (20:46)
[2019-02-21] MEDS: MoRPHine SULFATE 2 MG/ML CARP IV PRN (03:21)
[2019-02-21 06:36] LABS: Hematocrit (blood only) 27.3 % (37-47); Hemoglobin 9.2 g/dL (12.0-16.0); Mean Corpuscular Hgb Conc 33.7 g/dL (32-36); Mean Platelet Volume 9.4 fL (7.4-10.4); Platelet Count 252 K/uL (130-400); RDW Coefficient of Variation 17.1 % (11.5-14.5); RDW Standard Deviation 66.1 fL (36.4-46.3); White Blood Count 17.23 K/uL (4.8-10.8)
[2019-02-21 07:15] LABS: Albumin Level 3.1 gm/dl (3.4-5.0); BUN Creatinine Ratio 5.2 (10-20); Calcium 7.9 mg/dl (8.5-10.1); Creatinine Clr Calc Pharmacy 98.8 ml/min; Est GFR (African American) 132.6; Est GFR (Non-African American) 114.5; Potassium 3.4 mmol/L (3.5-5.1)
[2019-02-21 07:19] LABS: Bilirubin,Total 1.7 mg/dl (0.2-1); Total Protein 6.1 gm/dl (6.4-8.2)
[2019-02-21] MEDS: THIAMINE HCL 100 MG TAB PO SCH (07:38)
[2019-02-21] MEDS: ACYCLOVIR 400 MG TAB PO SCH ×2 (07:38→12:52)
[2019-02-21] MEDS: FOLIC ACID 1 MG TAB PO SCH (07:38)
[2019-02-21] MEDS: TRIAMCINOLONE ACET 0.1% CR 80 GM TUBE EXT SCH ×2 (07:38→12:51)
[2019-02-21] MEDS: NICOTINE 14 MG/24 HR PATCH TD SCH (07:39)
[2019-02-21] MEDS: DOCUSATE SODIUM/SENNA 50/8.6MG TAB PO SCH (07:39)
[2019-02-21] MEDS: cefTRIAXone SODIUM 2,000 MG in DEXTROSE 5% 50 ML IV SCH (08:07)
[2019-02-21 16:17] VITALS: PULSE 85; TEMP 99; O2SAT 95
[2019-02-21 16:22] VITALS: BP 83/48
--- NOTE | 2019-02-21 20:11 | Discharge Summary ---
Date of Service February 21, 2019 Admission HPI Per Admitting Provider Mrs. Nunn is a 48 year old female with past medical history of neuropathy, asthma, ETOH abuse, cirrhosis with ascites who presented to the ED with persistent nausea/vomiting. Pt. states she developed nausea/vomiting ~3 days ago. PO intake has been limited due to symptoms. She also has intermittent diarrhea. Has increased abdominal bloating over the last two weeks -- pt. has h/o ascites in setting of cirrhosis and did have an US guided paracentesis on 10/31/18. She has had issues with recurrent ascites but did not have a repeat paracentesis. She states fluid has been building up in her abdomen over the last two weeks leading to increased SOB and discomfort. Pt. would be agreeable to a paracentesis during this admission. She has suprapubic pain but denies dysuria, hematuria, urinary frequency. Has lower back pain -- started ~3 days ago. She fell at home after stepping in the mud. Denies radiation of pain down legs, urinary retention or incontinence. Denies fever/chills, URI symptoms, LE edema, headache, chest pain. She smokes 1/2 - 1 PPD at home depending on her stress level. ETOH intake fluctuates -- she has been drinking more recently due to the of a close family member. Pt. reports she has been drinking 3 glasses of vodka/cranberry at home. Last drink was yesterday evening. ER course: Labs showed elevated LFTs, leukocytosis, significant electrolyte abnormalities. U/a positive; UC and BC are pending. Ultrasound showed mild ascites. Plan to admit for further evaluation. Principal Diagnosis Ascites due to Alcoholic Cirrhosis Discharge Exam Constitutional + frail appearing; no acute distress ENMT Ears: no hearing impairment Neck normal visual inspection and trachea midline Respiratory normal respiratory effort, lungs clear to auscultation Cardiovascular RRR, no murmur, no edema Gastrointestinal (Abdomen) Inspection/Auscultation: + abdomen distended and normal bowel sounds Percussion/Palpation: abdomen soft (more firm in lower quadrants); abdomen nontender evidence of caput medusa Musculoskeletal Head/Neck/Chest: normocephalic and head atraumatic Skin no rashes, warm and dry Neurologic moves all extremities Psychiatric A+Ox3, euthymic affect Discharge Data Allergies Allergy/AdvReac Type Severity Reaction Status Date / Time Bactrim Allergy Severe CHEST PAIN Unverified 12/26/16 19:35 sulfamethoxazole Allergy Severe CHEST PAIN Unverified 02/18/19 05:20 trimethoprim Allergy Severe CHEST PAIN Unverified 02/18/19 05:20 Consultations 02/18/19 06:16 ED Decision to Admit Stat Ordered Studies CT abdomen pelvis wo/w con FINDINGS: Lower chest: There are small bilateral pleural effusions with basilar airspace opacities statistically atelectatic. Liver: There are liver is enlarged. There is CT evidence for hepatic steatosis and fibrosis with marked heterogeneous enhancement. The liver has a cirrhotic morphology. Gallbladder: Unremarkable. Spleen: Top normal in size Pancreas: Unremarkable. Adrenal glands: Unremarkable. Kidneys: No renal, ureteral, or bladder calculi are visualized. No solid renal masses are visualized. No collecting system lesions are delineated. Bowel: There are no transition zones to indicate bowel obstruction. The appendix appears normal. There is no acute diverticulitis. Peritoneum: There is a large volume of ascites. This has increased when compared the November study. There is no free intraperitoneal air Vasculature: The abdominal aorta is normal in course and caliber. Adenopathy: None. Pelvic viscera: The bladder, and pelvic viscera are unremarkable. Skeletal structures: No destructive osseous lesions are seen. IMPRESSION: 1. No evidence of bowel obstruction. No evidence of free air 2. Hepatomegaly. Cirrhotic morphology of the liver. Heterogeneous hepatic steatosis. 3. No evidence of bowel obstruction. No evidence of free air 4. Large volume of ascites 5. No renal, ureteral, or bladder calculi identified. No renal masses ident ified. 6. Small bilateral pleural effusions Hospital Course (1) Ascites due to alcoholic cirrhosis: - S/P paracentesis Oct 2018 with removal of 1L peritoneal fluid and now S/P paracentesis on 02/20 with 3 L removed and albumin administered - Given Rocephin 2 g IV daily for coverage of SBP prophylactically however fluid analysis looks good; did have leukocytosis which may have a chronic element too when looking in our system but also did culture out bacteria on Urine Cx - She was prescribed Spironolactone 25 mg daily on last admission however admits to not following up with providers and has not been taking this at home - She is chronically hypotensive but asymptomatic with this - did discuss restarting the Spironolactone with monitoring of her BP - She does agree to GI and PCP establishment and agrees to go to the appointment - appts provided to patient on D/C - She does express desire to stop drinking but was not interested in inpatient rehab options; did explain that this would be the main thing to help prevent worsening of her liver - Advised on low sodium diet (2) Elevated LFTs: - In setting of ETOH abuse, cirrhosis; is improving on labs - Recommend routine monitoring as outpatient and GI establishment vs assistant brand manager referral (3) Leukocytosis: - WBC 27 at admission -- was improving with treatment of UTI - With labs in our system some chronic element and can be monitored; remains afebrile (4) UTI (urinary tract infection): - UC positive for Klebsiella and Citrobacter. - Initially covered with Rocephin and will complete treatment with Keflex 500 mg BID (5) Acute anemia: - Hgb level was trending down, likely related to dilution from IV fluids. - Folate and B12 levels were both elevated - did have a folate deficiency on prior admission - H/H now stable (6) Prolonged INR: - INR level 1.6 in setting of cirrhosis. - No indication for treatment with Vit K; no signs of bleeding (7) Acute electrocardiogram changes: - T wave changes noted on EKG at admission, repeat EKG on 02/19 with no abnormalities. - Trop was negative x 3. (8) ETOH abuse: - ETOH use fluctuates per patient -- has been drinking 3 glasses vodka per day per patient. - ETOH level was undetectable at admission; last drink was on 02/17/19. - Had no evidence of withdrawal. - Continue thiamine and folic acid. 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 - Acyclovir 400 mg TID to complete 5 day course (10) Lumbar pain: - Lumbar spine XR negative. - Avoid heavy NSAID use in setting of ETOH abuse; Tylenol contraindicated due to LFTs/cirrhosis. - Tramadol PRN Total Time Total Time Spent Total Time Spent (In Minutes): Greater than 30 minutes Discharge Plan Discharge Items Patient Disposition: Home - Self-Care Reason For Visit: ASCITES, N/V Discharge Diagnosis: Abdominal Fluid Condition: Fair Discharge Goals: Decrease discomfort, Improve disease control and Increase independence Activity: Resume your previous activity Non-emergency contact: Primary Care Provider Call non-emergency contact if: you have any medication questions, your symptoms worsen and you have a fever Follow-up/Referrals: Pilar Miller PA-C [Physician Traffic Ii Manager] - 02/28/19 1:40 pm (Please, follow up at [facility] Gastroenterology Office with Pilar Miller PA-C on WednesdayFebruary 28 at 1:40 pm. *This office is located at [address] [facility] in [facility]). If you need to change this appointment, call the office at [phone].) Luzma Colvin, [Primary Care Provider] - 02/23/19 9:30 am (Please, follow up at [facility] [place] Office with Reina BELTRAN on February 23 at 9:30 am. *This office is located in [facility]. If you need to change this appointment, call the office at [phone].) Diet: Low Sodium (2gm) Addtl Provider Instructions: Fluid in the Abdomen (Ascites) from Liver Cirrhosis: - You had 3 Liters of fluid drained from your belly. This fluid can re- accumulate so it will need to be monitored. A GI doctor would be helpful to have and may even need a referral to a liver specialist. Unfortunately there are not direct liver specialists in this area but we do have GI doctors - To help reduce the fluid, it is recommended to eat a low salt diet as this can cause fluid retention. Ultimately being on better fluid pill medications will help but will have to monitor closely with the blood pressure - Ultimately stopping drinking will be the aguilera. Some damage to the liver will be permanent but the goal is to prevent further damage. - You may also need to have drainage of your belly every now and then to help keep the fluid under control. Either way this needs to be monitored. - [facility] in [place] is willing to see you again at their practice and has a follow-up for 02/23 which is very close but will be helpful for close monitoring; also got an appointment on 02/28 with [facility] GI doctors with Pilar Miller - A prescription was sent for Spironolactone. This is a water pill. This can help prevent the fluid from increasing but will have to watch you blood pressure. You do have a low blood pressure at baseline which is common with liver issues. If this medication makes you dizzy please talk with you family doctor about adjusting this or stopping it altogether Urinary Tract Infection: - You will need to continue antibiotics for treatment of this. Start this tomorrow on 02/22 as you had antibiotics in the hospital today -- Keflex 500 mg twice a day until 02/24 Oral Herpes Simplex: - Continue Acyclovir 400 mg TID until 02/24 Prescriptions: New acyclovir 400 mg Tablet 400 mg PO TID Qty: 10 RF: 0 tramadol 50 mg Tablet 50 mg PO Q6H PRN (Reason: pain) 3 Days Qty: 12 RF: 0 cephalexin [Keflex] 500 mg capsule 500 mg PO BID Qty: 6 RF: 0 Continued hydroxyzine HCl 25 mg tablet 25 mg PO HS PRN (Reason: Anxiety) RF: 0 ibuprofen 200 mg Tablet 200 mg PO Q6H PRN (Reason: Pain) RF: 0 thiamine HCl (vitamin B1) 100 mg tablet 100 mg PO DAILY 30 Days Qty: 30 RF: 5 spironolactone 25 mg Tablet 25 mg PO DAILY 30 Days Qty: 30 RF: 0 folic acid 1 mg tablet 1 mg PO DAILY 30 Days Qty: 30 RF: 5 Stand-Alone Forms: [facility] Discharge Orders: Discharge Order (Routine); Ordered 02/21/19 Ordered By: Eliana Fisher Admission Data Admit Date/Time: 02/18/19 07:55 Attending Provider: Luis Enrique Chavarria Admit Provider: Jordin Lind Primary Care Provider: Luzma Colvin Other Providers: Henny Rivera Service: Telemetry Medical Other Interventions: Discharge Summary Assessment (RN) Last Done: 02/21/19 16:20 Pending Studies at Discharge: No DC Date/Time DO NOT enter until pt leaves facility: 02/21/19 18:21 Supervising Physician Co-Signing Physician Notes Attending note: patient seen and examined with Eliana Fisher PA-C. I agree with her discharge summary. patient feels ready to go home - Alcoholic cirrhosis long discussion with patient regarding her alcoholism. discussed that if she continues to drink she will do more damage to her liver. explained that she already has cirrhosis, her scar tissue cannot be treated or reversed. discussed that it is imperative that she follows up with her PCP and GI doctor. discussed that if she would have any hope for liver transplant she would need to be sober for 6 months. asked if she felt she had support to get sober and she said yes, she has been sober before. explained that the spironolactone will help with fluid balance will need to follow fluid restriction, low sodium diet she will need EGD for screening for varices patient says she will follow up
== END 2019-02-21 18:21 | disposition home or self-care (01) | DRG 433 ==
LOC: ED 04:45 → SUATTDRO 07:55 → 2N 07:55

== ENCOUNTER 2019-03-05 14:08 | Inpatient (IN) ==
[2019-03-05] MEDS ORDERED: SODIUM CHLORIDE 0.9% 500 ML IV SCH (14:45)
--- NOTE | 2019-03-05 15:11 | XRay Report ---
XR chest 1V portable HISTORY: Atypical chest pain COMPARISON: Chest 02/18/2019. FINDINGS: The lungs are clear. Cardiac silhouette is normal in size. No pleural effusions. No pneumot horax. IMPRESSION: No acute process. Electronically signed by: José Manuel Coello M.D. 03/05/2019 3:10 PM
[2019-03-05 15:38] LABS: Appearance Urine Clear (Clear); Bilirubin Urine Negative (Negative); Color Urine Yellow; Glucose Urine UA Negative (Negative); Ketones Urine Negative (Negative); Leukocyte Esterase Urine Negative (Negative); Nitrite Urine Negative (Negative); Protein Urine Negative (Negative); Specific Gravity Urine 1.009 (1.000-1.030); Urobilinogen Urine Negative (Negative); pH Urine 6.5 (4.5-7.5)
--- NOTE | 2019-03-05 15:48 | Emergency Department Note ---
Entered by Shanice Murphy acting as a scribe for Blas Eddy DO History of Present Illness General Chief complaint: Edema To Extremity Stated complaint: RETAINING WATER Source: patient History of Present Illness Onset (ago): day(s) 2 Location: abdomen Severity: similar to prior episodes Pain Consistency: + other (Persistent) Maximum Pain Intensity: 10 Quality: + other (Abdominal pain) Associated symptoms: + other (Abdominal pain, right foot swelling.) The patient is a 48 year old female presenting to the Emergency Department complaining of persistent abdominal pain starting 2 days ago. The patient reports that she has abdominal pain. She states that her liver feels swollen. She explains that her right foot is severely swollen and that it needs drained. She notes that she has experienced these symptoms before about 1 week ago. She adds that at that time, she was in the hospital and 3L of fluid was drained from her right foot. The patient reports that she is an alcoholic. She states that she last drank vodka last night. She notes that she does not have an established GI. She adds that she is menopausal. Home Medications Home Medications Medication Instructions Recorded Confirmed Type hydroxyzine HCl 25 mg PO HS PRN 11/17/18 03/05/19 History ibuprofen 200 mg PO Q6H PRN 02/18/19 03/05/19 History acyclovir 400 mg PO TID #10 tab 02/21/19 03/05/19 Rx folic acid 1 mg PO QAM 03/05/19 03/05/19 History thiamine HCl (vitamin B1) 100 mg PO QAM 03/05/19 03/05/19 History tramadol 50 mg PO UD 03/05/19 03/05/19 History spironolactone 25 mg PO QAM #30 tab 03/06/19 Rx Allergies Allergy/AdvReac Type Severity Reaction Status Date / Time Bactrim Allergy Severe CHEST PAIN Unverified 12/26/16 19:35 sulfamethoxazole Allergy Severe CHEST PAIN Unverified 03/05/19 15:54 trimethoprim Allergy Severe CHEST PAIN Unverified 03/05/19 15:54 Past Med/Surg History Medical History Abdominal pain Diabetes Heart disease Bronchitis Pneumonia Alcohol withdrawal Liver disease due to alcohol Pneumonia Surgical History H/O dilation and curettage Previous section Family History Sister Drug abuse Other No significant family history Social History Preferred Language: Chinese Communication Ability: Effective Neuropsychiatrist Required: No Beliefs That Will Affect Care: None marital status: Current Living Situation: Spouse and Family Current Living Situation Comment: kids and grandkids Feels Safe at Home: Yes Safety Concerns: Feels Safe At This Time Smoking Status: Current every day smoker Tobacco Type: cigarettes Cigarettes Per Day: 20 Second Hand Exposure: No Hx Alcohol Use: Yes (known alcoholism) Alcohol type: beer Hx Substance Use: No Review of Systems See HPI for pertinent positives & negatives. and A total of 10 systems reviewed and were otherwise negative Physical Exam Vital Signs Vital Signs - 24 hr 03/05/19 14:24 03/05/19 17:40 03/05/19 18:12 Temperature 36.9 C Temperature Source Oral Sepsis Action Taken by Nursing No Action Required Pulse Rate 101 H Pulse Rate [Finger] 103 H 98 H Respiratory Rate 20 20 20 Respiratory Effort / Characteristics Non-Labored Spontaneous Respiratory Depth Normal Respiratory Pattern Regular Blood Pressure 102/66 Blood Pressure [Right Arm] 103/67 98/67 L Blood Pressure Mean 78 Blood Pressure Mean [Right Arm] 79 77 Blood Pressure Position [Right Arm] Pulse Oximetry 99 97 97 Oxygen Delivery Method Room Air Room Air Room Air 03/05/19 19:26 03/05/19 20:00 03/05/19 20:31 Temperature Temperature Source Oral Sepsis Action Taken by Nursing Pulse Rate Pulse Rate [Finger] 105 H 104 H 103 H Respiratory Rate 22 16 18 Respiratory Effort / Characteristics Non-Labored Spontaneous Respiratory Depth Normal Respiratory Pattern Blood Pressure Blood Pressure [Right Arm] 91/62 L 93/62 L 96/59 L Blood Pressure Mean Blood Pressure Mean [Right Arm] 71 72 71 Blood Pressure Position [Right Arm] Lying Lying Pulse Oximetry 98 100 98 Oxygen Delivery Method Room Air Room Air Room Air GENERAL: The patient is awake alert. She is very anxious appearing and tearful. EYES: The conjunctivae are clear. The pupils are round and reactive. EARS, NOSE, MOUTH AND THROAT: The nose is without any evidence of any deformity. Mucous membranes are moist.Tongue is midline NECK: The neck is nontender and supple. RESPIRATORY: Normal respiratory effort is noted. There is no evidence of wheezing rhonchi or rales to auscultation. CARDIOVASCULAR: Regular rate and rhythm noted. There no murmurs rubs or gallops normal S1 normal S2 GASTROINTESTINAL: The abdomen is moderately distended. There is a significant fluid wave and significant ascites appreciated on physical exam. MUSCULOSKELETAL/EXTREMITIES: There is no evidence of gross deformity. Full range of motion is noted in the hips and shoulders. SKIN: There is no obvious evidence of any rash. Pedal edema was noted bilaterally. NEUROLOGIC: Patient is awake alert and oriented x3. Procedures Free Text Procedures 1845: 5.7L of clear, straw colored peritoneal fluid was removed. See Paracentesis note. Paracentesis Local Anesthetic: lidocaine 2% Amount of anesthesia used (mL): 2 Fluid: clear (Straw colored) and sent to lab for analysis Post Procedure Exam: awake, alert and normal SpO2 Patient Tolerated Procedure: well Complications: none Course 1439: The patient was evaluated in room C2B, and a complete history and physical examination were performed. 1836: I reevaluated the patient at this time. 1845: I performed a paracentesis at this time. See procedure note for details. 1900: I paged for MAHSA SOUZA at this time. 1903: I discussed the patients case with Dr. Song SOUZA who recommended that the patient be admitted to the hospital. 1935: I discussed the patient's case with Dr. Georgi BRAGG hospitalist. He will evaluate the patient for further management. Consultations Consultation #1: I discussed the patients case with Dr. Song SOUZA who recommended that the patient be admitted to the hospital. Time: 19:03 Consultation #2: I discussed the patient's case with Dr. Georgi BRAGG hospitalist. He will evaluate the patient for further management. Time: 19:35 Administered Medications Discontinued Medications Cyanocobalamin (Vitamin B-12) 1,000 mcg PO QAM [facility] Stop: 04/05/19 10:44 Last Admin: 03/06/19 11:27 Dose: 1,000 mcg Documented by: [id number] Folic Acid (Folvite) 1 mg PO QAM [facility] Stop: 04/05/19 10:29 Last Admin: 03/06/19 11:26 Dose: 1 mg Documented by: [id number] Sodium Chloride (Nss) 500 mls @ 999 mls/hr IV .[id number] [facility] Stop: 03/05/19 15:15 Last Infusion: 03/05/19 17:34 Dose: 0 mls/hr Documented by: [id number] Admin: 03/05/19 16:59 Dose: 999 mls/hr Documented by: [id number] Ceftriaxone Sodium (Rocephin) 1,000 mg in 50 mls @ 100 mls/hr IV NOW STA Stop: 03/05/19 19:34 Last Infusion: 03/05/19 20:01 Dose: 0 mls/hr Documented by: [id number] Admin: 03/05/19 19:22 Dose: 100 mls/hr Documented by: [id number] Albumin Human (Albumin 5%) 250 mls @ 500 mls/hr IV UD [facility] Stop: 03/08/19 19:14 Last Infusion: 03/05/19 20:31 Dose: 0 mls/hr Documented by: [id number] Admin: 03/05/19 19:51 Dose: 500 mls/hr Documented by: [id number] Dextrose/Sodium Chloride (D5w And 1/2nss) 1,000 mls @ 80 mls/hr IV .[id number] [facility] Stop: 04/04/19 21:17 Last Admin: 03/05/19 23:16 Dose: Not Given Documented by: [id number] Furosemide 20 mg/ Syringe 2 mls @ 4 mls/min IV QAM [facility] Stop: 04/05/19 08:59 Last Admin: 03/06/19 08:45 Dose: 4 mls/min Documented by: [id number] Thiamine HCl 100 mg/ Sodium (Chloride) 51 mls @ 208 mls/hr IV NOW STA Stop: 03/05/19 21:50 Last Infusion: 03/05/19 22:32 Dose: 208 mls/hr Documented by: [id number] Admin: 03/05/19 21:56 Dose: 208 mls/hr Documented by: [id number] Potassium Chloride/Dextrose/Sod Cl (D5nss + 20meq Kcl) 20 meq in 1,000 mls @ 80 mls/hr IV .[id number] [facility] Stop: 03/06/19 10:29 Last Infusion: 03/06/19 10:49 Dose: 0 mls/hr Documented by: [id number] Admin: 03/05/19 22:40 Dose: 80 mls/hr Documented by: [id number] Morphine Sulfate (Morphine Sulfate) 4 mg IV Q15M PRN PRN Reason: Pain Stop: 03/19/19 17:37 Last Admin: 03/05/19 17:45 Dose: 4 mg Documented by: [id number] Ondansetron HCl (Zofran) 4 mg IV NOW STA Stop: 03/05/19 17:39 Last Admin: 03/05/19 17:45 Dose: 4 mg Documented by: [id number] Potassium Chloride (Xiomara Ciel Elix) 20 meq PO Q4H [facility] Stop: 03/06/19 18:01 Last Admin: 03/06/19 11:26 Dose: 20 meq Documented by: [id number] Spironolactone (Aldactone) 25 mg PO [facility] Stop: 04/05/19 08:59 Last Admin: 03/06/19 08:43 Dose: 25 mg Documented by: [id number] Thiamine HCl (Vitamin B-1) 100 mg PO [facility] Stop: 04/05/19 08:59 Last Admin: 03/06/19 08:44 Dose: 100 mg Documented by: [id number] Medical Decision Making Differential Diagnosis Differential diagnoses includes but is not limited to gastritis, peptic ulcer disease, GERD, gallbladder disease, pancreatitis, small bowel obstruction, acute coronary syndrome, pericarditis, ischemic bowel, irritable bowel disease, irrita ble bowel syndrome, appendicitis, diverticulitis, malignancy, hernia, urinary tract infection, torsion, perforation, trauma, infectious. Medical Records Attestation: I reviewed the patient's medical records. Home Medications Current Medication List: was personally reviewed by me Laboratory Data Attestation: I reviewed the patient's lab results. Result diagrams: 03/06/19 05:32 03/06/19 05:32 Lab Results 03/05/19 03/05/19 03/05/19 Range/Units 15:20 16:10 16:10 WBC 27.64 H (4.8-10.8) K/uL RBC 3.11 L (4.2-5.4) M/uL Hgb 10.5 L (12.0-16.0) g/dL Hct 30.3 L (37-47) % MCV 97.4 (80-100) fL MCH 33.8 (25-34) pg MCHC 34.7 (32-36) g/dL RDW Std Deviation 54.7 H (36.4-46.3) fL RDW Coeff of Spenser 15.4 H (11.5-14.5) % Plt Count 463 H (130-400) K/uL MPV 9.3 (7.4-10.4) fL Immature Gran % (Auto) 0.8 % Neut % (Auto) 73.7 % Lymph % (Auto) 15.6 % Story % (Auto) 8.6 % Eos % (Auto) 0.9 % Baso % (Auto) 0.4 % Immature Gran # (Auto) 0.23 H (0.00-0.02) K/uL Neut # (Auto) 20.38 H (1.4-6.5) K/uL Lymph # (Auto) 4.30 H (1.2-3.4) K/uL Story # (Auto) 2.38 H (0.11-0.59) K/uL Eos # (Auto) 0.24 (0-0.5) K/uL Baso # (Auto) 0.11 (0-0.2) K/uL ESR PT 15.6 H (9.0-12.0) Seconds INR 1.6 H (0.9-1.1) APTT 34.2 H (21.0-31.0) Seconds PTT Ratio 1.3 Sodium Potassium Chloride Carbon Dioxide Anion Gap BUN Creatinine Est Cr Clr Drug Dosing Est GFR ( Amer) Est GFR (Non-Af Amer) BUN/Creatinine Ratio Glucose Calcium Total Bilirubin AST ALT Alkaline Phosphatase Ammonia C-Reactive Protein (0-0.29) mg/dl Total Protein Albumin Globulin Albumin/Globulin Ratio Lipase Urine Color Yellow Urine Appearance Clear (Clear) Urine pH 6.5 (4.5-7.5) Ur Specific Zillah 1.009 (1.000-1.030) Urine Protein Negative (Negative) Urine Glucose (UA) Negative (Negative) Urine Ketones Negative (Negative) Urine Blood Negative (Negative) Urine Nitrite Negative (Negative) Urine Bilirubin Negative (Negative) Urine Urobilinogen Negative (Negative) Ur Leukocyte Esterase Negative (Negative) Pericard Total Protein Pericardial Albumin Peritoneal Color Peritoneal Appearance Peritoneal WBC (0-300) /ul Peritoneal RBC /uL Mononuclear WBCs % % Polynuclear WBCs % % Peritoneal Tot Protein g/dl Peritoneal Albumin g/dl Peritoneal LDH U/L Ethyl Alcohol mg/dL 03/05/19 03/05/19 03/05/19 Range/Units 16:10 16:10 16:10 WBC (4.8-10.8) K/uL RBC (4.2-5.4) M/uL Hgb (12.0-16.0) g/dL Hct (37-47) % MCV (80-100) fL MCH (25-34) pg MCHC (32-36) g/dL RDW Std Deviation (36.4-46.3) fL RDW Coeff of Spenser (11.5-14.5) % Plt Count (130-400) K/uL MPV (7.4-10.4) fL Immature Gran % (Auto) % Neut % (Auto) % Lymph % (Auto) % Story % (Auto) % Eos % (Auto) % Baso % (Auto) % Immature Gran # (Auto) (0.00-0.02) K/uL Neut # (Auto) (1.4-6.5) K/uL Lymph # (Auto) (1.2-3.4) K/uL Story # (Auto) (0.11-0.59) K/uL Eos # (Auto) (0-0.5) K/uL Baso # (Auto) (0-0.2) K/uL ESR PT (9.0-12.0) Seconds INR (0.9-1.1) APTT (21.0-31.0) Seconds PTT Ratio Sodium Cancelled Potassium Cancelled Chloride Cancelled Carbon Dioxide Cancelled Anion Gap Cancelled BUN Cancelled Creatinine Cancelled Est Cr Clr Drug Dosing Cancelled Est GFR ( Amer) Cancelled Est GFR (Non-Af Amer) Cancelled BUN/Creatinine Ratio Cancelled Glucose Cancelled Calcium Cancelled Total Bilirubin Cancelled AST Cancelled ALT Cancelled Alkaline Phosphatase Cancelled Ammonia Cancelled C-Reactive Protein (0-0.29) mg/dl Total Protein Cancelled Albumin Cancelled Globulin Cancelled Albumin/Globulin Ratio Cancelled Lipase Cancelled Urine Color Urine Appearance (Clear) Urine pH (4.5-7.5) Ur Specific Zillah (1.000-1.030) Urine Protein (Negative) Urine Glucose (UA) (Negative) Urine Ketones (Negative) Urine Blood (Negative) Urine Nitrite (Negative) Urine Bilirubin (Negative) Urine Urobilinogen (Negative) Ur Leukocyte Esterase (Negative) Pericard Total Protein Pericardial Albumin Peritoneal Color Peritoneal Appearance Peritoneal WBC (0-300) /ul Peritoneal RBC /uL Mononuclear WBCs % % Polynuclear WBCs % % Peritoneal Tot Protein g/dl Peritoneal Albumin g/dl Peritoneal LDH U/L Ethyl Alcohol mg/dL Cancelled 03/05/19 03/05/19 03/05/19 Range/Units 16:10 17:25 17:25 WBC (4.8-10.8) K/uL RBC (4.2-5.4) M/uL Hgb (12.0-16.0) g/dL Hct (37-47) % MCV (80-100) fL MCH (25-34) pg MCHC (32-36) g/dL RDW Std Deviation (36.4-46.3) fL RDW Coeff of Spenser (11.5-14.5) % Plt Count (130-400) K/uL MPV (7.4-10.4) fL Immature Gran % (Auto) % Neut % (Auto) % Lymph % (Auto) % Story % (Auto) % Eos % (Auto) % Baso % (Auto) % Immature Gran # (Auto) (0.00-0.02) K/uL Neut # (Auto) (1.4-6.5) K/uL Lymph # (Auto) (1.2-3.4) K/uL Story # (Auto) (0.11-0.59) K/uL Eos # (Auto) (0-0.5) K/uL Baso # (Auto) (0-0.2) K/uL ESR Cancelled PT (9.0-12.0) Seconds INR (0.9-1.1) APTT (21.0-31.0) Seconds PTT Ratio Sodium Potassium Chloride Carbon Dioxide Anion Gap BUN Creatinine Est Cr Clr Drug Dosing Est GFR ( Amer) Est GFR (Non-Af Amer) BUN/Creatinine Ratio Glucose Calcium Total Bilirubin AST ALT Alkaline Phosphatase Ammonia < 10.0 L C-Reactive Protein (0-0.29) mg/dl Total Protein Albumin Globulin Albumin/Globulin Ratio Lipase Urine Color Urine Appearance (Clear) Urine pH (4.5-7.5) Ur Specific Zill[place] (1.000-1.030) Urine Protein (Negative) Urine Glucose (UA) (Negative) Urine Ketones (Negative) Urine Blood (Negative) Urine Nitrite (Negative) Urine Bilirubin (Negative) Urine Urobilinogen (Negative) Ur Leukocyte Esterase (Negative) Pericard Total Protein Pericardial Albumin Peritoneal Color Peritoneal Appearance Peritoneal WBC (0-300) /ul Peritoneal RBC /uL Mononuclear WBCs % % Polynuclear WBCs % % Peritoneal Tot Protein g/dl Peritoneal Albumin g/dl Peritoneal LDH U/L Ethyl Alcohol mg/dL 36.4 H 03/05/19 03/05/19 03/05/19 Range/Units 17:25 18:50 18:50 WBC (4.8-10.8) K/uL RBC (4.2-5.4) M/uL Hgb (12.0-16.0) g/dL Hct (37-47) % MCV (80-100) fL MCH (25-34) pg MCHC (32-36) g/dL RDW Std Deviation (36.4-46.3) fL RDW Coeff of Spenser (11.5-14.5) % Plt Count (130-400) K/uL MPV (7.4-10.4) fL Immature Gran % (Auto) % Neut % (Auto) % Lymph % (Auto) % Story % (Auto) % Eos % (Auto) % Baso % (Auto) % Immature Gran # (Auto) (0.00-0.02) K/uL Neut # (Auto) (1.4-6.5) K/uL Lymph # (Auto) (1.2-3.4) K/uL Story # (Auto) (0.11-0.59) K/uL Eos # (Auto) (0-0.5) K/uL Baso # (Auto) (0-0.2) K/uL ESR PT (9.0-12.0) Seconds INR (0.9-1.1) APTT (21.0-31.0) Seconds PTT Ratio Sodium 133 L Potassium 3.4 L Chloride 98 Carbon Dioxide 22 Anion Gap 12.0 H BUN 3 L Creatinine 0.37 L Est Cr Clr Drug Dosing 133.6 Est GFR ( Amer) 146.5 Est GFR (Non-Af Amer) 126.4 BUN/Creatinine Ratio 6.7 L Glucose 75 Calcium 8.3 L Total Bilirubin 2.2 H AST 122 H ALT 25 Alkaline Phosphatase 239 H Ammonia C-Reactive Protein 3.81 H (0-0.29) mg/dl Total Protein 6.8 Albumin 2.5 L Globulin 4.3 H Albumin/Globulin Ratio 0.6 L Lipase 108 Urine Color Urine Appearance (Clear) Urine pH (4.5-7.5) Ur Specific Zillah (1.000-1.030) Urine Protein (Negative) Urine Glucose (UA) (Negative) Urine Ketones (Negative) Urine Blood (Negative) Urine Nitrite (Negative) Urine Bilirubin (Negative) Urine Urobilinogen (Negative) Ur Leukocyte Esterase (Negative) Pericard Total Protein Cancelled Pericardial Albumin Cancelled Peritoneal Color YELLOW Peritoneal Appearance CLEAR Peritoneal WBC 123 (0-300) /ul Peritoneal RBC < 3000 /uL Mononuclear WBCs % 78.4 % Polynuclear WBCs % 21.6 % Peritoneal Tot Protein g/dl Peritoneal Albumin g/dl Peritoneal LDH U/L Ethyl Alcohol mg/dL 03/05/19 Range/Units 19:18 WBC (4.8-10.8) K/uL RBC (4.2-5.4) M/uL Hgb (12.0-16.0) g/dL Hct (37-47) % MCV (80-100) fL MCH (25-34) pg MCHC (32-36) g/dL RDW Std Deviation (36.4-46.3) fL RDW Coeff of Spenser (11.5-14.5) % Plt Count (130-400) K/uL MPV (7.4-10.4) fL Immature Gran % (Auto) % Neut % (Auto) % Lymph % (Auto) % Story % (Auto) % Eos % (Auto) % Baso % (Auto) % Immature Gran # (Auto) (0.00-0.02) K/uL Neut # (Auto) (1.4-6.5) K/uL Lymph # (Auto) (1.2-3.4) K/uL Story # (Auto) (0.11-0.59) K/uL Eos # (Auto) (0-0.5) K/uL Baso # (Auto) (0-0.2) K/uL ESR PT (9.0-12.0) Seconds INR (0.9-1.1) APTT (21.0-31.0) Seconds PTT Ratio Sodium Potassium Chloride Carbon Dioxide Anion Gap BUN Creatinine Est Cr Clr Drug Dosing Est GFR ( Amer) Est GFR (Non-Af Amer) BUN/Creatinine Ratio Glucose Calcium Total Bilirubin AST ALT Alkaline Phosphatase Ammonia C-Reactive Protein (0-0.29) mg/dl Total Protein Albumin Globulin Albumin/Globulin Ratio Lipase Urine Color Urine Appearance (Clear) Urine pH (4.5-7.5) Ur Specific Zill[place] (1.000-1.030) Urine Protein (Negative) Urine Glucose (UA) (Negative) Urine Ketones (Negative) Urine Blood (Negative) Urine Nitrite (Negative) Urine Bilirubin (Negative) Urine Urobilinogen (Negative) Ur Leukocyte Esterase (Negative) Pericard Total Protein Pericardial Albumin Peritoneal Color Peritoneal Appearance Peritoneal WBC (0-300) /ul Peritoneal RBC /uL Mononuclear WBCs % % Polynuclear WBCs % % Peritoneal Tot Protein 2.1 g/dl Peritoneal Albumin 1.0 g/dl Peritoneal LDH 44 U/L Ethyl Alcohol mg/dL Imaging Data Radiologist's Impression: Radiology results as stated below per my review and the radiologist's interpretation: ABDOMEN AND PELVIS CT WITHOUT CONTRAST CT DOSE: 399.19 mGy.cm HISTORY: Generalized abdominal pain, hx of ascites TECHNIQUE: Multiaxial CT images of the abdomen and pelvis were performed without contrast. A dose lowering technique was utilized adhering to the principles of ALARA. COMPARISON STUDY: Abdomen and pelvis CT 02/19/2019. FINDINGS: Bibasilar linear densities consistent with subsegmental atelectasis. Trace right pleural effusion is decreased in size. The left pleural effusion has resolved in the interval. No pneumoperitoneum. No pneumatosis. No fractures within the visualized osseous structures. Small hiatus hernia. The heart is normal in size. A few small gallstones. Cirrhotic liver demonstrating diffuse heterogeneity. The kidneys, adrenal glands, and spleen are unremarkable. The pancreas is within normal limits. No retroperitoneal lymphadenopathy. Normal caliber abdominal aorta. The uterus and ovaries are unremarkable. Centralization of the bowel due to the large volume ascites. No definite bowel wall thickening or obstruction. Normal appendix. IMPRESSION: 1. No evidence for bowel obstruction. 2. Distended abdomen due to the large volume ascites. 3. Heterogeneous and cirrhotic liver. Electronically signed by: José Manuel Coello M.D. 03/05/2019 4:51 PM XR chest 1V portable HISTORY: Atypical chest pain COMPARISON: Chest 02/18/2019. FINDINGS: The lungs are clear. Cardiac silhouette is normal in size. No pleural effusions. No pneumothorax. IMPRESSION: No acute process. Electronically signed by: José Manuel Coello M.D. 03/05/2019 3:10 PM ECG Data Attestation: I personally reviewed and interpreted this ECG as follows: Indication: abdominal pain Rate (beats per minute): 101 Rhythm: sinus tachycardia Findings: + nonspecific-ST abn (Lateral and inferior); no ectopy Comparison ECG Date: from (02/19/19) Change: no significant change Blood Pressure Blood Pressure Findings: Low blood pressure Blood Pressure Disposition: further management by hospitalist [facility] Narrative The patient is a 48-year-old female who presented to the emergency department for an evaluation of abdominal distention and lower extremity swelling. The patient is a history of alcoholic cirrhosis. She does continue to drink but has been experiencing very severe pain in her abdomen. She has a very tense ascites. She recently had a paracentesis which did improve her symptoms for short period of time. The patient was found to have a very elevated white blood cell count. I was concerned this could represent a bacterial peritonitis. For this reason a paracentesis was obtained. Approximately 5.7 L of clear ascites was removed. The patient was feeling much better. I discussed the patient's condition with the on-call singing teacher. I also discussed her case with the on-call [facility] hospitalist group. They have agreed to evaluate patient in the emergency department for further management and disposition. The patient was treated with IV pain medication. She was feeling much better on subsequent reevaluation. I discussed the patient's laboratory and radiographic studies with her. Impression & Plan Abdominal pain, Ascites, Elevated WBC count, Cirrhosis Discharge Plan Visit Data *Final* Discharge Date/Time: 03/05/19 21:10 Chief Complaint: Edema To Extremity Stated Complaint: RETAINING WATER ED Provider: Blas Eddy Discharge Problem: Abdominal pain, Ascites, Elevated WBC count, Cirrhosis Patient Disposition: Admitted As Inpatient Discharge Instructions Interventions: ED Discharge Assessment Last Done: 03/05/19 21:10 Discharge Problem: Abdominal pain Qualifiers: Abdominal location: generalized Qualified Code(s): R10.84 - Generalized abdominal pain Ascites Qualifiers: Ascites type: due to alcoholic cirrhosis Qualified Code(s): K70.31 - Alcoholic cirrhosis of liver with ascites Elevated WBC count Qualifiers: Leukocytosis type: unspecified Qualified Code(s): D72.829 - Elevated white blood cell count, unspecified Cirrhosis Qualifiers: Hepatic cirrhosis type: alcoholic cirrhosis Ascites presence: with ascites Qualified Code(s): K70.31 - Alcoholic cirrhosis of liver with ascites The scribe's documentation has been prepared under my direction and personally reviewed by me in its entirety. I confirm that the note above accurately reflects all work, treatment, procedures, and medical decision making performed by me.
[2019-03-05 16:29] LABS: Hematocrit (blood only) 30.3 % (37-47); Hemoglobin 10.5 g/dL (12.0-16.0); Mean Corpuscular Hgb Conc 34.7 g/dL (32-36); Mean Corpuscular Volume 97.4 fL (80-100); Mean Platelet Volume 9.3 fL (7.4-10.4); Platelet Count 463 K/uL (130-400); RDW Coefficient of Variation 15.4 % (11.5-14.5); RDW Standard Deviation 54.7 fL (36.4-46.3); Red Blood Count 3.11 M/uL (4.2-5.4); White Blood Count 27.64 K/uL (4.8-10.8)
[2019-03-05 16:48] LABS: INR 1.6 (0.9-1.1); Partial Thromboplastin Ratio 1.3; Partial Thromboplastin Time 34.2 Seconds (21.0-31.0); Prothrombin Time 15.6 Seconds (9.0-12.0)
[2019-03-05 16:49] LABS: Basophils # (auto) 0.11 K/uL (0-0.2); Basophils % (auto) 0.4 %; Eosinophils # (auto) 0.24 K/uL (0-0.5); Eosinophils % (auto) 0.9 %; Immature Granulocytes # (auto) 0.23 K/uL (0.00-0.02); Immature Granulocytes % (auto) 0.8 %; Lymphocytes % (auto) 15.6 %; Monocytes # (auto) 2.38 K/uL (0.11-0.59); Monocytes % (auto) 8.6 %; Neutrophils # (auto) 20.38 K/uL (1.4-6.5); Neutrophils % (auto) 73.7 %
--- NOTE | 2019-03-05 16:52 | CT Scan Report ---
ABDOMEN AND PELVIS CT WITHOUT CONTRAST CT DOSE: 399.19 mGy.cm HISTORY: Generalized abdominal pain, hx of ascites TECHNIQUE: Multiaxial CT images of the abdomen and pelvis were performed without contrast. A dose lo wering technique was utilized adhering to the principles of ALARA. COMPARISON STUDY: Abdomen and pelvis CT 02/19/2019. FINDINGS: Bibasilar linear densities consistent with subsegmental atelectasis. Trace right pleural ef fusion is decreased in size. The left pleural effusion has resolved in the interval. No pneumoperiton eum. No pneumatosis. No fractures within the visualized osseous structures. Small hiatus hernia. The heart is normal in size. A few small gallstones. Cirrhotic liver demonstrating diffuse heterogeneity. The kidneys, adrenal glands, and spleen are unremarkable. The pancreas is within normal limits. No r etroperitoneal lymphadenopathy. Normal caliber abdominal aorta. The uterus and ovaries are unremarkab le. Centralization of the bowel due to the large volume ascites. No definite bowel wall thickening or obstruction. Normal appendix. IMPRESSION: 1. No evidence for bowel obstruction. 2. Distended abdomen due to the large volume ascites. 3. Heterogeneous and cirrhotic liver. Electronically signed by: José Manuel Coello M.D. 03/05/2019 4:51 PM
[2019-03-05] MEDS ORDERED: MoRPHine SULFATE 4 MG/ML 1 ML CARP\\VIAL IV PRN (17:38)
[2019-03-05] MEDS ORDERED: ONDANSETRON INJ 2 MG/ML 2 ML VIAL IV STA (17:38)
[2019-03-05 18:11] LABS: Albumin Level 2.5 gm/dl (3.4-5.0); BUN Creatinine Ratio 6.7 (10-20); C Reactive Protein 3.81 mg/dl (0-0.29); Calcium 8.3 mg/dl (8.5-10.1); Creatinine Clr Calc Pharmacy 133.6 ml/min; Est GFR (African American) 146.5; Est GFR (Non-African American) 126.4; Potassium 3.4 mmol/L (3.5-5.1)
[2019-03-05 18:14] LABS: Albumin Globulin Ratio 0.6 (0.9-2); Bilirubin,Total 2.2 mg/dl (0.2-1); Globulin 4.3 gm/dl (2.5-4.0); Total Protein 6.8 gm/dl (6.4-8.2)
[2019-03-05] MEDS ORDERED: cefTRIAXone SODIUM 1,000 MG/50 ML BAG IV STA (19:05)
[2019-03-05] MEDS ORDERED: ALBUMIN 5% 250 ML IV SCH (19:15)
[2019-03-05 20:00] LABS: Total Protein Peritoneal Fluid 2.1 g/dl
[2019-03-05 20:28] LABS: Mononuclear WBC Peritoneal 78.4 %; Polynuclear WBC Peritoneal 21.6 %; RBC Peritoneal Fluid (A) < 3000 /uL; WBC Peritoneal Fluid (A) 123 /ul (0-300)
--- NOTE | 2019-03-05 21:03 | History & Physical Report ---
Date of Service March 05, 2019 Assessment & Plan (1) Ascites: 48-year-old female with history significant for alcoholism and liver cirrhosis presents with abdominal pain and severe abdominal ascites. The symptoms have progressively worsened over the past 2 weeks since being discharged from the hospital on February 21, 2019. She was here previously for therapeutic paracentesis. The patient is nonadherent with outpatient medication and plan. Continues to drink heavily. Acute on chronic alcoholic cirrhosis, with ascites 3 L removed by therapeutic paracentesis Patient nonadherent with all medications Will start Lasix 20 IV daily and spironolactone 25 p.o. daily, hold SBP is lower than 90 Patient is intravascularly depletedgiving albumin, IVF D5 +N+ K at 80 cc/h Alcohol withdrawal protocol Meld score of 18, reports having a appointment with GI specialist Leukocytosis Patient has been elevated on past admission Regarding cultures on peritoneal fluid Treating empirically for SBPRocephin 2 g daily Anemiaborderline elevated MCV Secondary to alcoholism, folate deficiency Check folate level and B12 level Give folate, B1 daily Prolonged INR No signs of acute blood loss DVT ppx DVT prophylaxis contraindicated Code status (2) Abdominal pain: (3) Cirrhosis: (4) Elevated WBC count: (5) ETOH abuse: (6) Prolonged INR: (7) Acute anemia: (8) UTI (urinary tract infection): History of Present Illness Primary Care Provider: Luzma Colvin DO 48-year-old female with history significant for alcoholism and liver cirrhosis presents with abdominal pain and abdominal swelling. She states that she has been drinking more alcohol over the past 2 weeks since her grandmother . She was admitted recently on 02/18/2019 for abdominal ascites and received therapeutic paracentesis at that time. She relates feeling abdominal pain in termittently over the past 2 weeks. She says today her abdomen was so swollen that the skin was stretching and she had severe pain over her whole abdomen, 10 out of 10. In the ED, paracentesis was performed with removal of over 5 L of fluid. Her abdominal pain improved. Her history of alcohol use is extensiveshe is attempted to quit for in the past, but states that she always starts back because she uses alcohol as a coping mechanism for life's hardships. She denies other illicit drug use. She states that she was diagnosed with cirrhosis approximately 1 year ago. She has been prescribed spironolactone in the past, but is not adherent with all medications. She sees Dr. Colvin in [place]. Review of systems Constitutional; no fevers, chills, night sweats Neuro; no confusion, no falls CV; no chest pain, no shortness of breath, no lower extremity swelling Pulmonary; no shortness of breath GI; abdominal pain, diarrhea. Denies nausea/vomiting/diarrhea Psych; describes being anxious Allergies Allergy/AdvReac Type Severity Reaction Status Date / Time Bactrim Allergy Severe CHEST PAIN Unverified 12/26/16 19:35 sulfamethoxazole Allergy Severe CHEST PAIN Unverified 03/05/19 15:54 trimethoprim Allergy Severe CHEST PAIN Unverified 03/05/19 15:54 Home Medications Home Medications Medication Instructions Recorded Confirmed Type hydroxyzine HCl 25 mg PO HS PRN 11/17/18 03/05/19 History ibuprofen 200 mg PO Q6H PRN 02/18/19 03/05/19 History acyclovir 400 mg PO TID #10 tab 02/21/19 03/05/19 Rx folic acid 1 mg PO QAM 03/05/19 03/05/19 History thiamine HCl (vitamin B1) 100 mg PO QAM 03/05/19 03/05/19 History tramadol 50 mg PO UD 03/05/19 03/05/19 History Past Med/Surg History Medical History Abdominal pain Diabetes Heart disease Bronchitis Pneumonia Alcohol withdrawal Liver disease due to alcohol Pneumonia Surgical History H/O dilation and curettage Previous section Family History Sister Drug abuse Other No significant family history Social History Preferred Language: Northern Irish Communication Ability: Effective [employer] Work[employer] Required: No Beliefs That Will Affect Care: None marital status: Current Living Situation: Spouse and Family Current Living Situation Comment: kids and grandkids Feels Safe at Home: Yes Safety Concerns: Feels Safe At This Time Smoking Status: Current every day smoker Tobacco Type: cigarettes Cigarettes Per Day: 20 Second Hand Exposure: No Hx Alcohol Use: Yes (known alcoholism) Alcohol type: beer Hx Substance Use: No Review of Systems Review of Systems: All systems reviewed & are unremarkable except as noted in HPI & below Physical Exam Constitutional: + ill appearing and + thin; + not well nourished, no acute distress and no altered mental status Eyes: PERRL, conjunctivae normal, anicteric sclerae ENMT: external ear and nose normal, oropharynx normal Neck: trachea midline, no thyromegaly Respiratory: normal respiratory effort, lungs clear to auscultation Cardiovascular: Rate/Rhythm: regular rate and regular rhythm Heart Sounds: + murmur (3 out of 6 systolic murmur) Gastrointestinal (Abdomen): Inspection/Auscultation: + abdomen distended Percussion/Palpation: + abdomen tender (Right upper quadrant), abdomen soft, + hepatomegaly and + ascites; no guarding, abdomen not rigid and no pulsatile mass Musculoskeletal: no cyanosis or clubbing, extremities motor strength 5/5 And cachectic legs and arms Skin: Spider angioma on bilateral cheeks Neurologic: PERRL, EOMI, accommodation nl, no face palsy, no dysarthria Psychiatric: Orientation: alert and oriented x 3 Mood: + depressed mood and + anxious mood Tearful Results & Data Vital Signs (Past 12 Hours) Vital Signs Temp Pulse Pulse Resp BP BP Pulse Ox 03/05/19 20:31 103 H 18 96/59 L 98 03/05/19 20:00 104 H 16 93/62 L 100 03/05/19 19:26 105 H 22 91/62 L 98 03/05/19 18:12 98 H 20 98/67 L 97 03/05/19 17:40 103 H 20 103/67 97 03/05/19 14:24 36.9 C 101 H 20 102/66 99 Diagnostic Findings ABDOMEN AND PELVIS CT WITHOUT CONTRAST CT DOSE: 399.19 mGy.cm HISTORY: Generalized abdominal pain, hx of ascites TECHNIQUE: Multiaxial CT images of the abdomen and pelvis were performed without contrast. A dose lowering technique was utilized adhering to the principles of ALARA. COMPARISON STUDY: Abdomen and pelvis CT 02/19/2019. FINDINGS: Bibasilar linear densities consistent with subsegmental atelectasis. Trace right pleural effusion is decreased in size. The left pleural effusion has resolved in the interval. No pneumoperitoneum. No pneumatosis. No fractures within the visualized osseous structures. Small hiatus hernia. The heart is normal in size. A few small gallstones. Cirrhotic liver demonstrating diffuse heterogeneity. The kidneys, adrenal glands, and spleen are unremarkable. The pancreas is within normal limits. No retroperitoneal lymphadenopathy. Normal caliber abdominal aorta. The uterus and ovaries are unremarkable. Centralization of the bowel due to the large volume ascites. No definite bowel wall thickening or obstruction. Normal appendix. PARACENTESIS UNDER ULTRASOUND GUIDANCE CLINICAL HISTORY: Ascites COMPARISON STUDY: No previous studies for comparison. FINDINGS: The risks, benefits, and alternatives to the procedure were discussed with the patient. Written informed consent was obtained. Following real-time ultrasound localization, the skin was prepped and draped. Following local anesthesia with Xylocaine, the sheath paracentesis needle was inserted and approximately 3 liters of straw-colored fluid was removed by vacuum suction. A left lower quadrant approach was utilized. The patient tolerated the procedure well and left the department in satisfactory condition. IMPRESSION: Successful ultrasound-guided paracentesis with removal of approximately 3 liters of ascitic fluid. IMPRESSION: 1. No evidence for bowel obstruction. 2. Distended abdomen due to the large volume ascites. 3. Heterogeneous and cirrhotic liver. Electronically signed by: José Manuel Coello M.D. 03/05/2019 4:51 PM Code Status & VTE Plan VTE Prophylaxis Plan VTE Prophylaxis will be ordered: No Reason for no VTE mechanical prophylaxis: Contraindicated Supervising Physician Co-Signing Physician Notes Pt seen/examined in conjunction with resident MD Deniz Jordan. Orders and plan of admission formulated with resident. 48 y/o F Hx ETOH cirrhosis and ascites - recently required paracentesis. Presen ts with abdominal pain and distention due to ascites. 5.5 litres removed in ER. Following this, she had difficulty sitting up without becoming lightheaded, although her abdominal pain had improved. Initial labs were close to baseline. She does have chronic leukocytosis and her WBC count was higher than previous values. OE AAO x 3 No jaundice or icterus S1,2 R CTAB + abdominal tenderness to palpation No CCE No deficits P: Due to persistent abdominal pain and rising WBC count, we would prefer to r/o SBP. Ascitic fluid cultures are pending. She is orthostatic and will receive IVF overnight. Would consider Lasix/Aldactone on DC, however, her blood pressure runs low in general. She is advised to stop smoking and is placed on thiamine, folate and a withdrawal protocol. (1) Ascites Ascites type: due to alcoholic cirrhosis Qualified Code(s): K70.31 - Alco holic cirrhosis of liver with ascites (2) Elevated WBC count Leukocytosis type: unspecified Qualified Code(s): D72.829 - Elevated white blood cell count, unspecified (3) Cirrhosis Ascites presence: with ascites Hepatic cirrhosis type: alcoholic cirrhosis Qualified Code(s): K70.31 - Alcoholic cirrhosis of liver with ascites (4) Abdominal pain Abdominal location: generalized Qualified Code(s): R10.84 - Generalized abdominal pain
[2019-03-05] MEDS ORDERED: TRAMADOL HCL 50 MG TABLET PO PRN (21:18)
[2019-03-05] MEDS ORDERED: D5W AND 1/2NSS 1,000 ML IV SCH (21:18)
[2019-03-05] MEDS ORDERED: MoRPHine SULFATE 2 MG/ML CARP IV PRN (21:18)
[2019-03-05] MEDS ORDERED: THIAMINE HCL 100 MG in SODIUM CHLORIDE 0.9% 50 ML IV STA (21:36)
[2019-03-05] MEDS ORDERED: D5NSS + 20MEQ KCL 20 MEQ/1,000 ML BAG IV SCH (22:00)
[2019-03-06 06:26] LABS: Basophils # (auto) 0.07 K/uL (0-0.2); Basophils % (auto) 0.4 %; Eosinophils # (auto) 0.28 K/uL (0-0.5); Eosinophils % (auto) 1.5 %; Hematocrit (blood only) 26.3 % (37-47); Hemoglobin 9.2 g/dL (12.0-16.0); Immature Granulocytes # (auto) 0.14 K/uL (0.00-0.02); Immature Granulocytes % (auto) 0.8 %; Lymphocytes # (auto) 2.42 K/uL (1.2-3.4); Lymphocytes % (auto) 13.1 %; Mean Corpuscular Volume 100.4 fL (80-100); Mean Platelet Volume 9.4 fL (7.4-10.4); Monocytes # (auto) 1.84 K/uL (0.11-0.59); Monocytes % (auto) 9.9 %; Neutrophils # (auto) 13.75 K/uL (1.4-6.5); Neutrophils % (auto) 74.3 %; Platelet Count 428 K/uL (130-400); RDW Coefficient of Variation 15.5 % (11.5-14.5); RDW Standard Deviation 56.8 fL (36.4-46.3); Red Blood Count 2.62 M/uL (4.2-5.4)
[2019-03-06 06:47] LABS: INR 1.6 (0.9-1.1); Prothrombin Time 16.1 Seconds (9.0-12.0)
[2019-03-06 07:02] LABS: Est GFR (African American) 139.4; Potassium 3.4 mmol/L (3.5-5.1)
[2019-03-06 07:03] LABS: Albumin Level 2.2 gm/dl (3.4-5.0); BUN Creatinine Ratio 6.8 (10-20); Calcium 7.8 mg/dl (8.5-10.1); Creatinine Clr Calc Pharmacy 104.1 ml/min; Est GFR (Non-African American) 120.3
[2019-03-06 07:07] LABS: Albumin Globulin Ratio 0.7 (0.9-2); Bilirubin,Total 1.6 mg/dl (0.2-1); Globulin 3.2 gm/dl (2.5-4.0); Total Protein 5.4 gm/dl (6.4-8.2)
[2019-03-06] MEDS ORDERED: FUROSEMIDE 20 MG in SYRINGE 0 ML IV SCH (09:00)
[2019-03-06] MEDS ORDERED: THIAMINE HCL 100 MG TAB PO SCH (09:00)
[2019-03-06] MEDS ORDERED: SPIRONOLACTONE 25 MG TAB PO SCH (09:00)
[2019-03-06 09:03] LABS: Folate (Folic Acid) 4.62 ng/ml (>5.38)
[2019-03-06] MEDS ORDERED: POTASSIUM CHLORIDE 20 MEQ TABCR PO SCH (10:00)
[2019-03-06] MEDS ORDERED: POTASSIUM CHLORIDE 20 MEQ/15 ML UDC PO SCH (10:00)
[2019-03-06] MEDS ORDERED: FOLIC ACID 1 MG TAB PO SCH (10:30)
[2019-03-06] MEDS ORDERED: CYANOCOBALAMIN 500 MCG TABLET (VITAMIN B-12) PO SCH (10:45)
--- NOTE | 2019-03-06 11:48 | Discharge Summary ---
Date of Service March 06, 2019 Admission HPI Per Admitting Provider 48-year-old female with history significant for alcoholism and liver cirrhosis presents with abdominal pain and abdominal swelling. She states that she has been drinking more alcohol over the past 2 weeks since her grandmother . She was admitted recently on 02/18/2019 for abdominal ascites and received therapeutic paracentesis at that time. She relates feeling abdominal pain intermittently over the past 2 weeks. She says today her abdomen was so swollen that the skin was stretching and she had severe pain over her whole abdomen, 10 out of 10. In the ED, paracentesis was performed with removal of over 5 L of fluid. Her abdominal pain improved. Her history of alcohol use is extensiveshe is attempted to quit for in the past, but states that she always starts back because she uses alcohol as a coping mechanism for life's hardships. She denies other illicit drug use. She states that she was diagnosed with cirrhosis approximately 1 year ago. She has been prescribed spironolactone in the past, but is not adherent with all medications. She sees Dr. Colvin in [place]. Review of systems Constitutional; no fevers, chills, night sweats Neuro; no confusion, no falls CV; no chest pain, no shortness of breath, no lower extremity swelling Pulmonary; no shortness of breath GI; abdominal pain, diarrhea. Denies nausea/vomiting/diarrhea Psych; describes being anxious Admission Exam Per Admitting Provider Constitutional: + ill appearing and + thin; + not well nourished, no acute distress and no altered mental status Eyes: PERRL, conjunctivae normal, anicteric sclerae ENMT: external ear and nose normal, oropharynx normal Neck: trachea midline, no thyromegaly Respiratory: normal respiratory effort, lungs clear to auscultation Cardiovascular: Rate/Rhythm: regular rate and regular rhythm Heart Sounds: + murmur (3 out of 6 systolic murmur) Gastrointestinal (Abdomen): Inspection/Auscultation: + abdomen distended Percussion/Palpation: + abdomen tender (Right upper quadrant), abdomen soft, + hepatomegaly and + ascites; no guarding, abdomen not rigid and no pulsatile mass Musculoskeletal: no cyanosis or clubbing, extremities motor strength 5/5 And cachectic legs and arms Skin: Spider angioma on bilateral cheeks Neurologic: PERRL, EOMI, accommodation nl, no face palsy, no dysarthria Psychiatric: Orientation: alert and oriented x 3 Mood: + depressed mood and + anxious mood Tearful Principal Diagnosis Acute on Chronic Alcoholic Cirrhosis with ascites Discharge Exam General: A&Ox3. Tearful affect. Cooperative. Appears thin. HEENT: Atraumatic, normocephalic. Pulm: CTAB A&P. -wheezes, -rales, -rhonchi. Symmetrical chest rise. No increase work of breathing. No respiratory distress. Cardiac: iii/vi systolic murmur. -rg. Regular rate. Radial pulses intact and symmetrical. Abdominal: Softly distended, nontender. BS present. Ascites present. Extremities: No pitting edema in hands or feet bilaterally. Discharge Data Allergies Allergy/AdvReac Type Severity Reaction Status Date / Time Bactrim Allergy Severe CHEST PAIN Unverified 12/26/16 19:35 sulfamethoxazole Allergy Severe CHEST PAIN Unverified 03/05/19 15:54 trimethoprim Allergy Severe CHEST PAIN Unverified 03/05/19 15:54 Consultations 03/05/19 19:25 ED Decision to Admit Stat 03/05/19 21:18 Consult Case Management - Discharge Planning Routine Ordered Studies 03/05/19 14:40 CT abd pelvis wo con Stat Hospital Course (1) Ascites: Judi Nunn is a 48yo F with a PMHx of alcoholic liver cirrhosis Meld 18who presented for worsening abdominal pain and severe abdominal ascites consistent with acute on chronic alcoholic cirrhosis with ascites. Acute on chronic alcoholic cirrhosis, with ascites Judi presented with abdominal pain, worsening abdominal swelling consistent with ascites.She was treated with therapeutic paracentesis with removal of approximately 5 L of fluid. Following removal she was given albumin, IV fluid maintenance for intravascular depletion with stabilization of her blood pressure. Her white blood count was mildly elevated, although on review she has had history of intermittent leukocytoses without any signs of SBP. She did not show any signs of abdominal infection, and her ascitic fluid protein was not low; she did not meet criteria for SBP prophylaxis.She was treated empirically with ceftriaxone 2 g IV pending ascitic fluid results which was discontinued on discharge.Following paracentesis she had improvement in her symptoms, and was not having abdominal pain or difficulty breathing at time of discharge. She was discharged to resume Spironolactone 25 mg p.o. daily with systolic pressures greater than 90.She is not having any symptoms of hypotension, and was ambulating without lightheadedness, dizziness, syncope, or presyncope at time of discharge. Alcohol abuse Judi was admitted with an elevated blood alcohol level. Following admission she did not experience any symptoms of withdrawal, and was not noted to be tremulous. She had no hallucinations during admission. She had a tearful affect, and expressed a desire to remain abstinent from alcohol. Counseling support, finding coping strategies other than alcohol for stress, and the warning signs of delirium tremens and withdrawal were discussed. Leukocytosis Judi has a history of intermittent leukocytosis with spontaneous resolution. She was treated empirically for SBP with Rocephin 2 g daily which was discontinued on discharge. Peritoneal fluid was sent for culture, but was negative at 24 hours at time of discharge. Borderline macrocytic anemia Judi has a history of anemia in the setting of alcoholism and folate depletion. Her folate was low during admission. Her B12 was normal. She was discharged to continue daily folate and thiamine repletion. Given her poor follow-up in the past a peripheral smear pathology consult was placed prior to discharge, which was pending at time of discharge. She did not experience any acute decrease in her anemia, and had no clinical signs of bleeding. Prolonged INR Judi has a history of mildly increased INR likely due to coagulopathy of chronic liver disease. She did not experience any clinical signs of bleeding and had stable chronic anemia as noted above. (2) Abdominal pain: (3) Elevated WBC count: (4) Cirrhosis: (5) Tobacco abuse: (6) ETOH abuse: (7) DVT prophylaxis: Total Time Total Time Spent Total Time Spent (In Minutes): <30 Discharge Plan Discharge Items Patient Disposition: Home - Self-Care Reason For Visit: ASCITES,CIRRHOSIS,ABDOMINAL PAIN Discharge Diagnosis: Ascites 2/2 Alcoholic Cirrhosis Discharge Goals: Improve disease control Activity: Resume your previous activity Non-emergency contact: Primary Care Provider Call non-emergency contact if: you have any medication questions, your symptoms worsen, your pain is not controlled, your pain is worsening, your pain is concerning for you, you have a fever, your wound has increased redness and your wound has increased drainage Follow-up/Referrals: Luzma Colvin DO [Primary Care Provider] - Diet: Regular Addtl Provider Instructions: You were seen in the hospital for abdominal pain due to ascites due to alcoholic liver disease. You were treated with a therapeutic paracentesis and diuresis. Your pain improved. Your red blood cell counts were noted to be low folic acid and thiamine counts were low during admission. You are being discharged on medications as below. After discharge please make sure to continue taking folic acid. Please take folic acid 1 mg daily. Your primary care physician will advise you when it is safe to stop this medication. You are being discharged on a medication for blood pressure and ascites, Spironolactone. Please take Spironolactone 25 mg daily. If you become lightheaded, dizzy, pass out, feel very weak, or develop palpitations/shortness of breath/difficulty breathing please stop taking this medication and call your primary care physician, or go to the emergency department if you are very concerned. A followup appointment with your primary care provider Dr. Colvin is being scheduled. You should have an appointment for within one week. If you do not receive a call to confirm this appointment, or need to change this appointment, please call her office at [phone]. If you develop any new or worsening symptoms, including chest pain, shortness of breath, difficulty breathing, worsening abdominal pain, bleeding, fever, chills, sweats please contact your primary care physician, or return to the emergency department if you are very concerned. You have a history of alcoholic liver disease. If you develop shaking, tremulousness, seizures, confusion, or visual/auditory/tactile hallucinations this can be a sign of withdrawal. If you experience any of these symptoms, please call 911 for transport to the emergency department. Prescriptions: New spironolactone 25 mg Tablet 25 mg PO QAM Qty: 30 RF: 1 Continued tramadol 50 mg tablet 50 mg PO UD RF: 0 thiamine HCl (vitamin B1) 100 mg tablet 100 mg PO QAM RF: 0 folic acid 1 mg tablet 1 mg PO QAM RF: 0 hydroxyzine HCl 25 mg tablet 25 mg PO HS PRN (Reason: Anxiety) RF: 0 ibuprofen 200 mg Tablet 200 mg PO Q6H PRN (Reason: Pain) RF: 0 acyclovir 400 mg Tablet 400 mg PO TID Qty: 10 RF: 0 Stand-Alone Forms: [facility] Discharge Orders: Discharge Order (Routine); Ordered 03/06/19 Ordered By: Jeffrey Thomas Admission Data Admit Date/Time: 03/05/19 20:33 Attending Provider: Miguel Ángel Neal Admit Provider: Jose M Jordan Primary Care Provider: Luzma Colvin Other Providers: Dimitris Laureano Service: Telemetry Medical Other Interventions: Discharge Summary Assessment (RN) Last Done: 03/06/19 12:14 DC Date/Time DO NOT enter until pt leaves facility: 03/06/19 12:30 Supervising Physician Co-Signing Physician Notes I personally examined the patient and verified all [place] points of history and exam, discussed case, and agree with decision making with Dr Thomas. Feeling okay. Overall feeling up to going home. No new complaints. She is able to walk around without feeling too weak lightheaded or dizzy. Her belly has not reaccumulated with fluid. She denies any prior alcohol withdrawal syndromes, and feels okay right now. She is not shaky or overly anxious. Sig nificant other present and feels comfortable with her going home to. We addressed alcohol cessation. Vitals noted, in general she is awake and alert pleasant no distress. HEENT normocephalic atraumatic mucous membranes moist. Breathing unlabored no accessory muscle use good effort. Abdomen is soft with only a mild degree of fluctuation consistent with a very small fluid wave. Cirrhosis with ascites- zero evidence of SBP, stable for home. Resume spironolactone, follow labs related to potassium, follow-up blood pressure, follow-up labs. Alcohol abusethiamine folate, encourage cessation. Outlined withdrawal syndromes for her to return should she show them, she is about 2 days after her last drink with no signs or symptoms of withdrawal, we did discuss it could certainly still present itself, but given that she is showing no symptoms now and is not had significant withdrawal in the past, she is stable for home with return should she start to show syndromes. Resident Activity Tracking Resident Involvement: Resident Care Provided Care Provided: Adult Hospital Medicine
[2019-03-06 12:06] LABS: RBC Morphology Unremarkable
[2019-03-06] MEDS ORDERED: cefTRIAXone SODIUM 2,000 MG in DEXTROSE 5% 50 ML IV SCH (20:00)
[2019-03-06] MEDS ORDERED: MAGNESIUM OXIDE 400 MG TAB PO SCH (21:00)
== END 2019-03-06 12:30 | disposition home or self-care (01) | DRG 434 ==
LOC: ED 14:08 → SUATTDRO 20:33 → 2W 20:33

== ENCOUNTER 2019-03-20 12:55 | Inpatient (IN) ==
[2019-03-20] MEDS ORDERED: ONDANSETRON INJ 2 MG/ML 2 ML VIAL IV STA (14:12)
[2019-03-20] MEDS ORDERED: fentaNYL citrate 100 MCG/2 ML VIAL IV STA (14:12)
[2019-03-20 15:39] LABS: Hematocrit (blood only) 31.3 % (37-47); Mean Corpuscular Hgb Conc 35.1 g/dL (32-36); Mean Corpuscular Volume 92.6 fL (80-100); Mean Platelet Volume 9.4 fL (7.4-10.4); Platelet Count 417 K/uL (130-400); RDW Coefficient of Variation 14.6 % (11.5-14.5); RDW Standard Deviation 49.7 fL (36.4-46.3); Red Blood Count 3.38 M/uL (4.2-5.4); White Blood Count 31.61 K/uL (4.8-10.8)
[2019-03-20 15:40] LABS: Basophils # (auto) 0.11 K/uL (0-0.2); Basophils % (auto) 0.3 %; Eosinophils # (auto) 0.11 K/uL (0-0.5); Eosinophils % (auto) 0.3 %; Immature Granulocytes # (auto) 0.19 K/uL (0.00-0.02); Immature Granulocytes % (auto) 0.6 %; Lymphocytes # (auto) 3.46 K/uL (1.2-3.4); Lymphocytes % (auto) 10.9 %; Monocytes # (auto) 2.02 K/uL (0.11-0.59); Monocytes % (auto) 6.4 %; Neutrophils # (auto) 25.72 K/uL (1.4-6.5); Neutrophils % (auto) 81.5 %
--- NOTE | 2019-03-20 15:42 | CT Scan Report ---
CT SCAN OF THE ABDOMEN AND PELVIS WITHOUT IV CONTRAST CLINICAL HISTORY: Abdominal distention. Nausea and vomiting. COMPARISON STUDY: Abdominal CT dated 03/05/2019. TECHNIQUE: CT scan of the abdomen and pelvis is performed from the lung bases to the proximal femora. Images are reviewed in the axial, sagittal, and coronal planes. IV contrast was not administered for this examination as per the referring clinician. Note that the examination was performed in suboptim al fashion without oral and IV contrast. A dose lowering technique was utilized adhering to the princ iples of UGO. CT DOSE: 377.31 mGy.cm FINDINGS: Lung bases: The heart is normal in size and without pericardial effusion. The lung bases are clear no ting bibasilar scarring/atelectasis. Liver: The unenhanced liver is cirrhotic in morphology and heterogeneous in attenuation. There is nod ularity of the service contour and hypertrophy of the left lobe. There is no intrahepatic biliary severino nury dilatation. Gallbladder: There is calcification of the gallbladder wall. Spleen: Normal in size and attenuation. Pancreas: Unenhanced pancreas is moderately atrophic and grossly unremarkable. Adrenal glands: Unremarkable. Kidneys: The unenhanced kidneys demonstrate cortical atrophy and are without hydronephrosis. There ar e no renal calculi identified. There is no evidence of contour deforming renal mass lesion. Abdominal vasculature: The abdominal aorta is normal in course and caliber noting moderate atheroscle rotic calcification. Bowel: There is no bowel obstruction. The appendix is not visualized. Peritoneum: There is no intraperitoneal free air. There is a large volume of abdominopelvic ascites. Lymphadenopathy: None. Pelvic viscera: The bladder, uterus, and adnexa are normal as imaged. Skeletal structures: No lytic or blastic lesions are seen. IMPRESSION: 1. Significantly suboptimal examination without oral and IV contrast. 2. Heterogeneous and cirrhotic liver. 3. The abdomen is distended with a large volume of abdominopelvic ascites. Electronically signed by: Franc Flores M.D. 03/20/2019 3:40 PM
[2019-03-20 15:45] LABS: Pregnancy Test, Serum Negative (Negative)
[2019-03-20 15:46] LABS: INR 1.6 (0.9-1.1); Prothrombin Time 15.6 Seconds (9.0-12.0)
[2019-03-20 15:53] LABS: Alanine Aminotransferase 32 U/L (12-78); Albumin Level 2.2 gm/dl (3.4-5.0); Aspartate Aminotransferase 107 U/L (15-37); BUN Creatinine Ratio 18.4 (10-20); Blood Urea Nitrogen 15 mg/dl (7-18); Calcium 8.4 mg/dl (8.5-10.1); Carbon Dioxide 23 mmol/L (21-32); Chloride 97 mmol/L (98-107); Est GFR (Non-African American) 87.2; Glucose 91 mg/dl (70-99); Magnesium 1.7 mg/dl (1.8-2.4); Potassium 4.5 mmol/L (3.5-5.1); Sodium 128 mmol/L (136-145)
[2019-03-20] MEDS ORDERED: LIDOCAINE/EPINEPHRINE 1% 20 ML VIAL INFIL ONE (15:54)
[2019-03-20 15:58] LABS: Albumin Globulin Ratio 0.5 (0.9-2); Alkaline Phosphatase 349 U/L (45-117); Bilirubin,Total 3.3 mg/dl (0.2-1); Globulin 4.7 gm/dl (2.5-4.0); Total Protein 6.9 gm/dl (6.4-8.2); Troponin I < 0.015 ng/ml (0-0.045)
[2019-03-20] MEDS ORDERED: MoRPHine SULFATE 4 MG/ML 1 ML CARP\\VIAL IV STA (16:15)
[2019-03-20] MEDS ORDERED: cefTRIAXone SODIUM 2,000 MG in DEXTROSE 5% 50 ML IV STA (16:40)
[2019-03-20] MEDS ORDERED: ALBUMIN 5% 250 ML IV SCH (17:45)
[2019-03-20 18:49] LABS: Appearance Peritoneal Fluid CLEAR; Color Peritoneal Fluid YELLOW; RBC Peritoneal Fluid (A) < 3000 /uL; WBC Peritoneal Fluid (A) 147 /ul (0-300)
--- NOTE | 2019-03-20 19:01 | Emergency Department Note ---
Entered by Soumya Jay acting as a scribe for Sonny Wang M.D. History of Present Illness General Chief complaint: Abdominal Pain Stated complaint: VOMITING, SWOLLEN FEET, CIRRHOSIS OF LIVER Source: patient History of Present Illness Onset (ago): day(s) (2-3) Location: abdomen Radiation: back Pain Consistency: + constant Maximum Pain Intensity: 8 Associated symptoms: + fever/chills (+ chills, - fever), + nausea/vomiting and + other (diarrhea); no chest pain and no headaches The patient is a 48 year old female who presents to the Emergency Room with complaints of constant right upper quadrant abdominal pain that started 2-3 days ago. The patient rates her pain an 8/10 in severity. She notes the pain radiates to her back. She also complains of chills, diarrhea, nausea, and vomiting. She states her abdomen and bilateral lower extremities have been more swollen than usual. She denies headaches, chest pain, or recent falls. The patient has a history of liver cirrhosis. She admits to using alcohol recently. Home Medications Home Medications Medication Instructions Recorded Confirmed Type tramadol 50 mg tablet 50 mg PO Q6H PRN tab 03/08/19 03/20/19 History albuterol sulfate 2.5 mg/3 mL 2.5 mg INHALATION .USE 1 UNIT DOSE 03/15/19 03/20/19 History (0.083 %) solution for nebulization EVER #1 ml buspirone 5 mg tablet 5 mg PO BID #60 tab 03/15/19 03/20/19 Rx folic acid 1 mg tablet 1 mg PO DAILY #30 tab 03/15/19 03/20/19 Rx hydroxyzine HCl 25 mg tablet See Rx Instructions PO .COMPLEX 03/15/19 03/20/19 Rx PRN #30 tab magnesium oxide 400 mg (241.3 mg 400 mg PO .TAKE 1 TABLET ONCE D 03/15/19 03/20/19 History magnesium) tablet tab multivitamin tablet 1 tab PO DAILY 03/15/19 03/20/19 History spironolactone 25 mg tablet 25 mg PO QAM #30 tab 03/15/19 03/20/19 Rx mecobalamin (vitamin B12) 1,000 1,000 mcg SL DAILY #30 tab 03/16/19 03/20/19 Rx mcg disintegrating tablet,sublingual thiamine HCl (vitamin B1) 100 mg 100 mg PO DAILY #30 tab 03/16/19 03/20/19 Rx tablet Allergies Allergy/AdvReac Type Severity Reaction Status Date / Time Bactrim Allergy Severe CHEST PAIN Unverified 12/26/16 19:35 sulfamethoxazole Allergy Severe CHEST PAIN Verified 03/20/19 15:09 trimethoprim Allergy Severe CHEST PAIN Verified 03/20/19 15:09 Past Med/Surg History Medical History Abdominal pain Diabetes Heart disease Liver disease due to alcohol (Acute) Alcohol withdrawal Bronchitis Pneumonia Pneumonia Surgical History H/O dilation and curettage Previous section Family History Sister Drug abuse Father Stroke Hypertension Dyslipidemia (high LDL; low HDL) Mother Depression Stroke Hypertension Other No significant family history Social History Preferred Language: Tajik Communication Ability: Effective Business 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 Manager Required: No Beliefs That Will Affect Care: Scientologist Scientologist Beliefs: Jehovah'S Witness marital status: Current Living Situation: Spouse and Family Current Living Situation Comment: , "his son, my dtr, her dtr and my son" Other Information That Helps Us Care for You: No Feels Safe at Home: Yes Safety Concerns: Feels Safe At This Time Smoking Status: Current every day smoker Tobacco Type: cigarettes Cigarettes Per Day: 20 Do You Dip or Chew Tobacco: No Second Hand Exposure: No Tobacco Cessation Education Requested by Patient: No Hx Alcohol Use: Yes (known alcoholism) Alcohol type: beer and hard liquor Hx Substance Use: No Review of Systems See HPI for pertinent positives & negatives. and A total of 10 systems reviewed and were otherwise negative Physical Exam Vital Signs Vital Signs - 24 hr 03/20/19 13:30 03/20/19 14:13 03/20/19 15:12 Temperature 36.7 C Temperature Source Oral Sepsis Recent Fever Within 48 Hours No Sepsis New/Unexplained Change in Mental Status No Sepsis Action Taken by Nursing No Action Required Pulse Rate 107 H Pulse Rate [Apical] 104 H 99 H Pulse Rhythm [Apical] Regular Regular Pulse Strength [Apical] Normal Normal Respiratory Rate 20 22 18 Respiratory Effort / Characteristics Non-Labored Non-Labored Spontaneous Non-Labored Spontaneous Respiratory Depth Normal Normal Normal Respiratory Pattern Regular Regular Blood Pressure 94/70 L Blood Pressure [Right Arm] 110/74 95/60 L Blood Pressure Mean 78 Blood Pressure Mean [Right Arm] 86 71 Blood Pressure Position Sitting Blood Pressure Position [Right Arm] Lying Lying Pulse Oximetry 98 98 96 Oxygen Delivery Method Room Air Room Air Room Air 03/20/19 15:52 03/20/19 15:53 03/20/19 17:59 Temperature Temperature Source Sepsis Recent Fever Within 48 Hours Sepsis New/Unexplained Change in Mental Status Sepsis Action Taken by Nursing Pulse Rate Pulse Rate [Apical] 102 H 100 H Pulse Rhythm [Apical] Regular Pulse Strength [Apical] Normal Respiratory Rate 20 18 Respiratory Effort / Characteristics Non-Labored Spontaneous Non-Labored Respiratory Depth Normal Normal Respiratory Pattern Regular Blood Pressure Blood Pressure [Right Arm] 93/61 L 107/76 Blood Pressure Mean Blood Pressure Mean [Right Arm] 71 86 Blood Pressure Position Blood Pressure Position [Right Arm] Lying Pulse Oximetry 99 98 98 Oxygen Delivery Method Room Air Room Air Room Air GENERAL: Awake, alert, weak appearing, in no distress. Cachectic, tearful. HENT: Normocephalic, atraumatic. EYES: Normal conjunctiva. Sclera non-icteric. NECK: Supple. No nuchal rigidity. RESPIRATORY: Clear to auscultation. Normal respiratory effort. CARDIAC: Normal rate. Normal rhythm. Extremities warm and well perfused. GI: Soft. Significant abdominal distention. Some diffuse tenderness. RECTAL: Deferred. MUSCULOSKELETAL: Atraumatic. Chest examination reveals no tenderness. LOWER EXTREMITIES: Calves are equal size bilaterally and non-tender. 2+ lower extremity swelling of feet. NEURO: Normal sensorium. No sensory or motor deficits noted. No facial droop. SKIN: Warm and dry. No rash or jaundice noted. Procedures Paracentesis Local Anesthetic: lidocaine 1% and with epi Amount of anesthesia used (mL): 2 Fluid: clear Post Procedure Exam: awake, alert Patient Tolerated Procedure: well and no complications Complications: none Course 1409: The patient was evaluated in room C11B. A complete history and physical exam was performed. 175: I discussed the patient's case with Dr. Shi, [facility] Hospitalist. She agrees to evaluate the patient for further management and care. Consultations Consultation #1: I discussed the patient's case with Dr. Shi, [facility] Hospitalist. She agrees to evaluate the patient for further management and care. Time: 17:53 Administered Medications Lactated Ringer's (Lr) 1,000 mls @ 80 mls/hr IV .[id number] CHEN Stop: 04/19/19 20:32 Last Admin: 03/20/19 20:52 Dose: 80 mls/hr Documented by: [id number] Morphine Sulfate (Morphine Sulfate) 4 mg IV Q4H PRN PRN Reason: Pain Stop: 04/03/19 20:32 Last Admin: 03/20/19 21:00 Dose: 4 mg Documented by: [id number] Ondansetron HCl (Zofran) 4 mg IV Q6H PRN PRN Reason: Nausea Stop: 04/19/19 20:32 Last Admin: 03/20/19 21:00 Dose: 4 mg Documented by: [id number] Discontinued Medications Fentanyl Citrate (Fentanyl Citrate) 50 mcg IV NOW STA Stop: 03/20/19 14:13 Last Admin: 03/20/19 15:09 Dose: 50 mcg Documented by: [id number] Ceftriaxone Sodium 2,000 mg/ (Dextrose) 70 mls @ 100 mls/hr IV NOW STA Stop: 03/20/19 17:21 Last Infusion: 03/20/19 18:49 Dose: 0 mls/hr Documented by: [id number] Admin: 03/20/19 17:58 Dose: 100 mls/hr Documented by: [id number] Albumin Human (Albumin 5%) 250 mls @ 500 mls/hr IV UD CHEN Stop: 03/23/19 17:44 Last Infusion: 03/20/19 19:42 Dose: 0 mls/hr Documented by: [id number] Admin: 03/20/19 18:47 Dose: 500 mls/hr Documented by: [id number] Lidocaine/Epinephrine (Xylocaine/Epinephrine 1%) 20 ml INFIL NOW ONE Stop: 03/20/19 15:55 Last Admin: 03/20/19 16:17 Dose: 20 ml Documented by: [id number] Morphine Sulfate (Morphine Sulfate) 4 mg IV NOW STA Stop: 03/20/19 16:16 Last Admin: 03/20/19 16:28 Dose: 4 mg Documented by: [id number] Ondansetron HCl (Zofran) 4 mg IV NOW STA Stop: 03/20/19 14:13 Last Admin: 03/20/19 15:09 Dose: 4 mg Documented by: [id number] Medical Decision Making Differential Diagnosis Etiologies such as appendicitis, diverticulitis, PUD, biliary pathology, UTI, pancreatitis, obstruction, mesenteric ischemia, aortic pathology, infections, inflammatory bowel disease, renal colic, as well as others were entertained. Medical Records Attestation: I reviewed the patient's medical records. Home Medications Current Medication List: was personally reviewed by me Laboratory Data Attestation: I reviewed the patient's lab results. Result diagrams: 03/20/19 14:40 03/20/19 14:40 Lab Results 03/20/19 03/20/19 03/20/19 Range/Units 14:40 14:40 14:40 WBC 31.61 H* (4.8-10.8) K/uL RBC 3.38 L (4.2-5.4) M/uL Hgb 11.0 L (12.0-16.0) g/dL Hct 31.3 L (37-47) % MCV 92.6 (80-100) fL MCH 32.5 (25-34) pg MCHC 35.1 (32-36) g/dL RDW Std Deviation 49.7 H (36.4-46.3) fL RDW Coeff of Spenser 14.6 H (11.5-14.5) % Plt Count 417 H (130-400) K/uL MPV 9.4 (7.4-10.4) fL Immature Gran % (Auto) 0.6 % Neut % (Auto) 81.5 % Lymph % (Auto) 10.9 % [place] % (Auto) 6.4 % Eos % (Auto) 0.3 % Baso % (Auto) 0.3 % Immature Gran # (Auto) 0.19 H (0.00-0.02) K/uL Neut # (Auto) 25.72 H (1.4-6.5) K/uL Lymph # (Auto) 3.46 H (1.2-3.4) K/uL [place] # (Auto) 2.02 H (0.11-0.59) K/uL Eos # (Auto) 0.11 (0-0.5) K/uL Baso # (Auto) 0.11 (0-0.2) K/uL PT 15.6 H (9.0-12.0) Seconds INR 1.6 H (0.9-1.1) Sodium (136-145) mmol/L Potassium (3.5-5.1) mmol/L Chloride (98-107) mmol/L Carbon Dioxide (21-32) mmol/L Anion Gap (3-11) BUN (7-18) mg/dl Creatinine (0.6-1.2) mg/dl Est Cr Clr Drug Dosing Est GFR ( Amer) Est GFR (Non-Af Amer) BUN/Creatinine Ratio (10-20) Glucose (70-99) mg/dl Lactate (0.4-2.0) mmol/L Calcium (8.5-10.1) mg/dl Magnesium (1.8-2.4) mg/dl Total Bilirubin (0.2-1) mg/dl AST (15-37) U/L ALT (12-78) U/L Alkaline Phosphatase (45-117) U/L Ammonia Troponin I (0-0.045) ng/ml Total Protein (6.4-8.2) gm/dl Albumin (3.4-5.0) gm/dl Globulin (2.5-4.0) gm/dl Albumin/Globulin Ratio (0.9-2) Lipase (73-393) U/L HCG, Qual (Negative) Peritoneal Color Peritoneal Appearance Peritoneal WBC (0-300) /ul Peritoneal RBC /uL Mononuclear WBCs % % Polynuclear WBCs % % Peritoneal Tot Protein g/dl Peritoneal Albumin g/dl Ethyl Alcohol mg/dL < 3.0 (0-3) mg/dl 03/20/19 03/20/19 03/20/19 Range/Units 14:40 14:40 14:40 WBC (4.8-10.8) K/uL RBC (4.2-5.4) M/uL Hgb (12.0-16.0) g/dL Hct (37-47) % MCV (80-100) fL MCH (25-34) pg MCHC (32-36) g/dL RDW Std Deviation (36.4-46.3) fL RDW Coeff of Spenser (11.5-14.5) % Plt Count (130-400) K/uL MPV (7.4-10.4) fL Immature Gran % (Auto) % Neut % (Auto) % Lymph % (Auto) % [place] % (Auto) % Eos % (Auto) % Baso % (Auto) % Immature Gran # (Auto) (0.00-0.02) K/uL Neut # (Auto) (1.4-6.5) K/uL Lymph # (Auto) (1.2-3.4) K/uL [place] # (Auto) (0.11-0.59) K/uL Eos # (Auto) (0-0.5) K/uL Baso # (Auto) (0-0.2) K/uL PT (9.0-12.0) Seconds INR (0.9-1.1) Sodium 128 L (136-145) mmol/L Potassium 4.5 (3.5-5.1) mmol/L Chloride 97 L (98-107) mmol/L Carbon Dioxide 23 (21-32) mmol/L Anion Gap 8.0 (3-11) BUN 15 (7-18) mg/dl Creatinine 0.80 (0.6-1.2) mg/dl Est Cr Clr Drug Dosing Not Reportable Est GFR ( Amer) 101.0 Est GFR (Non-Af Amer) 87.2 BUN/Creatinine Ratio 18.4 (10-20) Glucose 91 (70-99) mg/dl Lactate 0.9 (0.4-2.0) mmol/L Calcium 8.4 L (8.5-10.1) mg/dl Magnesium 1.7 L (1.8-2.4) mg/dl Total Bilirubin 3.3 H (0.2-1) mg/dl AST 107 H (15-37) U/L ALT 32 (12-78) U/L Alkaline Phosphatase 349 H (45-117) U/L Ammonia Cancelled Troponin I < 0.015 (0-0.045) ng/ml Total Protein 6.9 (6.4-8.2) gm/dl Albumin 2.2 L (3.4-5.0) gm/dl Globulin 4.7 H (2.5-4.0) gm/dl Albumin/Globulin Ratio 0.5 L (0.9-2) Lipase 34 L (73-393) U/L HCG, Qual (Negative) Peritoneal Color Peritoneal Appearance Peritoneal WBC (0-300) /ul Peritoneal RBC /uL Mononuclear WBCs % % Polynuclear WBCs % % Peritoneal Tot Protein g/dl Peritoneal Albumin g/dl Ethyl Alcohol mg/dL (0-3) mg/dl 03/20/19 03/20/19 03/20/19 Range/Units 14:40 15:41 16:35 WBC (4.8-10.8) K/uL RBC (4.2-5.4) M/uL Hgb (12.0-16.0) g/dL Hct (37-47) % MCV (80-100) fL MCH (25-34) pg MCHC (32-36) g/dL RDW Std Deviation (36.4-46.3) fL RDW Coeff of Spenser (11.5-14.5) % Plt Count (130-400) K/uL MPV (7.4-10.4) fL Immature Gran % (Auto) % Neut % (Auto) % Lymph % (Auto) % [place] % (Auto) % Eos % (Auto) % Baso % (Auto) % Immature Gran # (Auto) (0.00-0.02) K/uL Neut # (Auto) (1.4-6.5) K/uL Lymph # (Auto) (1.2-3.4) K/uL [place] # (Auto) (0.11-0.59) K/uL Eos # (Auto) (0-0.5) K/uL Baso # (Auto) (0-0.2) K/uL PT (9.0-12.0) Seconds INR (0.9-1.1) Sodium (136-145) mmol/L Potassium (3.5-5.1) mmol/L Chloride (98-107) mmol/L Carbon Dioxide (21-32) mmol/L Anion Gap (3-11) BUN (7-18) mg/dl Creatinine (0.6-1.2) mg/dl Est Cr Clr Drug Dosing Est GFR ( Amer) Est GFR (Non-Af Amer) BUN/Creatinine Ratio (10-20) Glucose (70-99) mg/dl Lactate (0.4-2.0) mmol/L Calcium (8.5-10.1) mg/dl Magnesium (1.8-2.4) mg/dl Total Bilirubin (0.2-1) mg/dl AST (15-37) U/L ALT (12-78) U/L Alkaline Phosphatase (45-117) U/L Ammonia Cancelled Troponin I (0-0.045) ng/ml Total Protein (6.4-8.2) gm/dl Albumin (3.4-5.0) gm/dl Globulin (2.5-4.0) gm/dl Albumin/Globulin Ratio (0.9-2) Lipase (73-393) U/L HCG, Qual Negative (Negative) Peritoneal Color Peritoneal Appearance Peritoneal WBC (0-300) /ul Peritoneal RBC /uL Mononuclear WBCs % % Polynuclear WBCs % % Peritoneal Tot Protein g/dl Peritoneal Albumin 0.6 g/dl Ethyl Alcohol mg/dL (0-3) mg/dl 03/20/19 03/20/19 03/20/19 Range/Units 16:35 16:35 16:50 WBC (4.8-10.8) K/uL RBC (4.2-5.4) M/uL Hgb (12.0-16.0) g/dL Hct (37-47) % MCV (80-100) fL MCH (25-34) pg MCHC (32-36) g/dL RDW Std Deviation (36.4-46.3) fL RDW Coeff of Spenser (11.5-14.5) % Plt Count (130-400) K/uL MPV (7.4-10.4) fL Immature Gran % (Auto) % Neut % (Auto) % Lymph % (Auto) % [place] % (Auto) % Eos % (Auto) % Baso % (Auto) % Immature Gran # (Auto) (0.00-0.02) K/uL Neut # (Auto) (1.4-6.5) K/uL Lymph # (Auto) (1.2-3.4) K/uL [place] # (Auto) (0.11-0.59) K/uL Eos # (Auto) (0-0.5) K/uL Baso # (Auto) (0-0.2) K/uL PT (9.0-12.0) Seconds INR (0.9-1.1) Sodium (136-145) mmol/L Potassium (3.5-5.1) mmol/L Chloride (98-107) mmol/L Carbon Dioxide (21-32) mmol/L Anion Gap (3-11) BUN (7-18) mg/dl Creatinine (0.6-1.2) mg/dl Est Cr Clr Drug Dosing Est GFR ( Amer) Est GFR (Non-Af Amer) BUN/Creatinine Ratio (10-20) Glucose (70-99) mg/dl Lactate (0.4-2.0) mmol/L Calcium (8.5-10.1) mg/dl Magnesium (1.8-2.4) mg/dl Total Bilirubin (0.2-1) mg/dl AST (15-37) U/L ALT (12-78) U/L Alkaline Phosphatase (45-117) U/L Ammonia 48.0 H Troponin I (0-0.045) ng/ml Total Protein (6.4-8.2) gm/dl Albumin (3.4-5.0) gm/dl Globulin (2.5-4.0) gm/dl Albumin/Globulin Ratio (0.9-2) Lipase (73-393) U/L HCG, Qual (Negative) Peritoneal Color YELLOW Peritoneal Appearance CLEAR Peritoneal WBC 147 (0-300) /ul Peritoneal RBC < 3000 /uL Mononuclear WBCs % 44.0 % Polynuclear WBCs % 56.0 % Peritoneal Tot Protein 1.4 g/dl Peritoneal Albumin g/dl Ethyl Alcohol mg/dL (0-3) mg/dl Imaging Data Radiologist's Impression: Radiology results as stated below per my review and the radiologist's interpretation: CT SCAN OF THE ABDOMEN AND PELVIS WITHOUT IV CONTRAST CLINICAL HISTORY: Abdominal distention. Nausea and vomiting. COMPARISON STUDY: Abdominal CT dated 03/05/2019. TECHNIQUE: CT scan of the abdomen and pelvis is performed from the lung bases to the proximal femora. Images are reviewed in the axial, sagittal, and coronal planes. IV contrast was not administered for this examination as per the referring clinician. Note that the examination was performed in suboptimal fashion without oral and IV contrast. A dose lowering technique was utilized adhering to the principles of ALARA. CT DOSE: 377.31 mGy.cm FINDINGS: Lung bases: The heart is normal in size and without pericardial effusion. The lung bases are clear noting bibasilar scarring/atelectasis. Liver: The unenhanced liver is cirrhotic in morphology and heterogeneous in attenuation. There is nodularity of the service contour and hypertrophy of the left lobe. There is no intrahepatic biliary ductal dilatation. Gallbladder: There is calcification of the gallbladder wall. Spleen: Normal in size and attenuation. Pancreas: Unenhanced pancreas is moderately atrophic and grossly unremarkable. Adrenal glands: Unremarkable. Kidneys: The unenhanced kidneys demonstrate cortical atrophy and are without h ydronephrosis. There are no renal calculi identified. There is no evidence of contour deforming renal mass lesion. Abdominal vasculature: The abdominal aorta is normal in course and caliber noting moderate atherosclerotic calcification. Bowel: There is no bowel obstruction. The appendix is not visualized. Peritoneum: There is no intraperitoneal free air. There is a large volume of abdominopelvic ascites. Lymphadenopathy: None. Pelvic viscera: The bladder, uterus, and adnexa are normal as imaged. Skeletal structures: No lytic or blastic lesions are seen. IMPRESSION: 1. Significantly suboptimal examination without oral and IV contrast. 2. Heterogeneous and cirrhotic liver. 3. The abdomen is distended with a large volume of abdominopelvic ascites. Electronically signed by: Franc Flores M.D. 03/20/2019 3:40 PM ECG Data Attestation: I personally reviewed and interpreted this ECG as follows: Indication: abdominal pain Rate (beats per minute): 102 Rhythm: sinus tachycardia Findings: + other (non-specific T wave changes in inferior leads); no PVC, no ST depression and no ST elevation Blood Pressure Blood Pressure Findings: Low blood pressure Blood Pressure Disposition: further management by hospitalist POOL Lindquist Patient is an unfortunate 48-year-old female with a significant history of alcoholism and liver cirrhosis who has had continued issues with alcohol abuse due to recent family stressors and . Was admitted twice in February and comes in today complaining of similar. Significant abdominal distention with some diffuse abdominal pain radiating to the back. Also complaining of some bilateral feet swelling. Denies trauma. No fevers reported but she does endorse some subjective chills. Reports compliance with medications but unable to truly state what these medications are. Afebrile here but slightly tachycardic with borderline blood pressure initially. Patient given some Zofran to help with nausea complaint and does report several days of some diarrhea. Appears to have similar episodes in the past. The abdomen is significantly distended likely related to decompensated liver failure. Basic labs were obtained as well as CT imaging the abdomen pelvis. Alcohol level, ammonia leve l, blood cultures were obtained. Lactate was also obtained. Patient does have a history of chronic leukocytosis. Leukocytosis today of 31.6 however lactate is reassuring at 0.9. Bilirubin is elevated today as well as worsening hyponatremia. Diagnostic paracentesis completed without complication. Approximately 100-110 cc of clear straw-colored fluid was obtained and sent for Gram stain and culture. Patient tolerated this well and the area was covered with Dermabond. Peritoneal fluid does not indicate evidence of SBP but culture will be pending. I did empirically cover with a dose of ceftriaxone given the significant leukocytosis and bilirubin changes. Given some albumin as well. Js l need therapeutic tap and continued discussion of alcohol cessation. Do believe given the new lab abnormalities additional inpatient evaluation be warranted and discussed with the hospitalist. Impression & Plan Abdominal distension, Liver disease due to alcohol, Ascites, Hyponatremia Discharge Plan Visit Data *Final* Discharge Date/Time: 03/20/19 20:20 Chief Complaint: Abdominal Pain Stated Complaint: VOMITING, SWOLLEN FEET, CIRRHOSIS OF LIVER ED Provider: Sonny Wang Discharge Problem: Abdominal distension, Liver disease due to alcohol, Ascites, Hyponatremia Patient Disposition: Admitted As Inpatient Discharge Instructions Interventions: ED Discharge Assessment Last Done: 03/20/19 20:20 Discharge Problem: Ascites Qualifiers: Ascites type: due to alcoholic cirrhosis Qualified Code(s): K70.31 - Alcoholic cirrhosis of liver with ascites The reynaibgraham's documentation has been prepared under my direction and personally reviewed by me in its entirety. I confirm that the note above accurately ref lects all work, treatment, procedures, and medical decision making performed by me.
--- NOTE | 2019-03-20 19:26 | History & Physical Report ---
Date of Service March 20, 2019 Assessment & Plan (1) Ascites: It appears that reaccumulation of her ascites and the discomfort with it is the main thing that is brought her back to the hospital. She does not show many signs or symptoms of SBP, but due to the acute worsening in her white count, at least until paracentesis is able to be obtained we will empirically cover with antibiotics. Ultrasound-guided paracentesis for both diagnostic, and more importantly, therapeutic purposes. Try to encourage adherence with her home diuretic regimen. (2) Cirrhosis: See above (3) ETOH abuse: This is the root cause of above. She did unfortunately resumed drinking as this appears to be her main coping mechanism with stress. Follow for signs or symptoms of withdrawal, but she usually does not have much (4) Leukocytosis: She seems to run persistently high, peripheral smear a few weeks ago did not show any atypical cells., Antibiotics as above. Hopefully the worsening is demargination from nausea vomiting. (5) Nausea vomiting and diarrhea: Nonspecific. Supportive care. Follow. (6) DVT prophylaxis: Ambulation (7) Dehydration: From nausea and vomiting, gentle IV fluids through the night, knowing that it may worsen ascites slightly. Hopefully we can have her hydrated enough that once she has paracentesis done we will be on to be off of fluids and back on diuretics History of Present Illness Chief Complaint: abdominal pain Primary Care Provider: DO Bernie Joseph 40-year-old female unfortunately well-known to our service coming back with abdominal pain. She notes of the last few days she has had worsening abdominal pain and distention, as well as some nausea vomiting and diarrhea. She denies any blood in the vomit or diarrhea. She has only been able to keep down soda today, ate some solids yesterday. She notes that right after she eats she has diarrhea. Mostly however her complaints are abdominal distention. She saw her PCP 5 days ago and her distention was worsening again, her PCP worked hard to get her back on her spironolactone and it was GI, but unfortunately the pain and distention got to be too much so she came to the ER today. She also notes significant life stressors with a relative dying, another committing suicide, and because of all of the stress she has gone back to drinking. It's not clear if she's been taking any of her medications. no fevers. some chills and sweats. Allergies Allergy/AdvReac Type Severity Reaction Status Date / Time Bactrim Allergy Severe CHEST PAIN Unverified 12/26/16 19:35 sulfamethoxazole Allergy Severe CHEST PAIN Verified 03/20/19 15:09 trimethoprim Allergy Severe CHEST PAIN Verified 03/20/19 15:09 Home Medications Home Medications Medication Instructions Recorded Confirmed Type tramadol 50 mg tablet 50 mg PO Q6H PRN tab 03/08/19 03/20/19 History albuterol sulfate 2.5 mg/3 mL 2.5 mg INHALATION .USE 1 UNIT DOSE 03/15/19 03/20/19 History (0.083 %) solution for nebulization EVER #1 ml buspirone 5 mg tablet 5 mg PO BID #60 tab 03/15/19 03/20/19 Rx folic acid 1 mg tablet 1 mg PO DAILY #30 tab 03/15/19 03/20/19 Rx hydroxyzine HCl 25 mg tablet See Rx Instructions PO .COMPLEX 03/15/19 03/20/19 Rx PRN #30 tab magnesium oxide 400 mg (241.3 mg 400 mg PO .TAKE 1 TABLET ONCE D 03/15/19 03/20/19 History magnesium) tablet tab multivitamin tablet 1 tab PO DAILY 03/15/19 03/20/19 History spironolactone 25 mg tablet 25 mg PO QAM #30 tab 03/15/19 03/20/19 Rx mecobalamin (vitamin B12) 1,000 1,000 mcg SL DAILY #30 tab 03/16/19 03/20/19 Rx mcg disintegrating tablet,sublingual thiamine HCl (vitamin B1) 100 mg 100 mg PO DAILY #30 tab 03/16/19 03/20/19 Rx tablet Past Med/Surg History Medical History Abdominal pain Diabetes Heart disease Liver disease due to alcohol (Acute) Alcohol withdrawal Bronchitis Pneumonia Pneumonia Surgical History H/O dilation and curettage Previous section Family History Sister Drug abuse Father Stroke Hypertension Dyslipidemia (high LDL; low HDL) Mother Depression Stroke Hypertension Other No significant family history Social History Preferred Language: Polish Communication Ability: Effective Beliefs That Will Affect Care: None marital status: Current Living Situation: Spouse and Family Current Living Situation Comment: kids and grandkids Feels Safe at Home: Yes Smoking Status: Current every day smoker Tobacco Type: cigarettes Cigarettes Per Day: 20 Second Hand Exposure: No Hx Alcohol Use: Yes (known alcoholism) Alcohol type: beer Hx Substance Use: No Review of Systems Review of Systems: All systems reviewed & are unremarkable except as noted in HPI & below Physical Exam Physical Exam: General she is awake and alert fatigued but no distress. HEENT normocephalic atraumatic mucous membranes moist. Breathing clear to auscultation bilaterally no rales rhonchi or wheezes unlabored no accessory muscle use good effort. Skin shows no rashes no pallor or icterus, she does have a degree of telangiectasias. Cardio is regular no rubs murmurs or gallops. Abdomen is largely distended with a fluid wave and somewhat tense, fortunately only minimally tender may be moderately, but no guarding/rebound/rigidity. Extremities show no cyanosis or clubbing she does have trace to maybe 1+ lower extremity edema which she notes to be new over the last few days as her belly is gotten more swollen. Neuro shows cranial nerves II through XII be grossly intact gross motor and sensory are intact. Mental status shows anxious mood and affect fair recent and remote recall. Results & Data Vital Signs (Past 12 Hours) Vital Signs Temp Pulse Pulse Resp BP BP Pulse Ox 03/20/19 19:13 102 H 20 81/55 L 98 03/20/19 17:59 100 H 18 107/76 98 03/20/19 15:53 98 03/20/19 15:52 102 H 20 93/61 L 99 03/20/19 15:12 99 H 18 95/60 L 96 03/20/19 14:13 104 H 22 110/74 98 03/20/19 13:30 36.7 C 107 H 20 94/70 L 98 Laboratory Results Labs and CT noted, refer to chart. (1) Ascites Ascites type: due to alcoholic cirrhosis Qualified Code(s): K70.31 - Alcoholic cirrhosis of liver with ascites (2) Cirrhosis Ascites presence: with ascites Hepatic cirrhosis type: alcoholic cirrhosis Q ualified Code(s): K70.31 - Alcoholic cirrhosis of liver with ascites
[2019-03-20] MEDS ORDERED: FAMOTIDINE 20MG/5ML IV PUSH IV STA (20:33)
[2019-03-20] MEDS ORDERED: ALUMINUM/MAGNESIUM SUSP 30 ML UDC PO PRN (20:33)
[2019-03-20] MEDS ORDERED: MAGNESIUM HYDROXIDE SUSP 30 ML UDC PO PRN (20:33)
[2019-03-20] MEDS: LACTATED RINGER'S 1,000 ML IV SCH (20:52)
[2019-03-20] MEDS: ONDANSETRON INJ 2 MG/ML 2 ML VIAL IV PRN (21:00)
[2019-03-20] MEDS: MoRPHine SULFATE 4 MG/ML 1 ML CARP\\VIAL IV PRN (21:00)
[2019-03-20] MEDS ORDERED: PATIENT'S HEIGHT AND/OR WEIGHT NEEDED SCH (21:15)
[2019-03-20 21:31] LABS: Appearance Urine Cloudy (Clear); Bacteria Urine Automated 1+ (Negative); Blood Urine Negative (Negative); Color Urine Orange; Epithelial Cell Urine Auto >30 /lpf (0-5); Glucose Urine UA Negative (Negative); Ketones Urine Negative (Negative); Leukocyte Esterase Urine 1+ (Negative); Nitrite Urine Positive (Negative); Protein Urine 1+ (Negative); Specific Gravity Urine 1.029 (1.000-1.030); Urobilinogen Urine Negative (Negative)
[2019-03-20 21:43] LABS: Bilirubin Urine Negative (Negative); Ictotest Urine Negative (Negative)
[2019-03-20 21:55] LABS: Cast Urine Automated >30 /lpf (0-5)
[2019-03-20 21:57] LABS: RBC Urine Automated 0-4 /hpf (0-4)
[2019-03-20] MEDS: FAMOTIDINE 20 MG in SYRINGE 3 ML IV SCH (22:05)
[2019-03-21] MEDS: MoRPHine SULFATE 4 MG/ML 1 ML CARP\\VIAL IV PRN ×3 (00:56→20:03)
[2019-03-21] MEDS: ONDANSETRON INJ 2 MG/ML 2 ML VIAL IV PRN ×2 (03:32→12:54)
[2019-03-21 06:08] LABS: Basophils # (auto) 0.05 K/uL (0-0.2); Basophils % (auto) 0.2 %; Eosinophils # (auto) 0.16 K/uL (0-0.5); Eosinophils % (auto) 0.8 %; Hematocrit (blood only) 27.1 % (37-47); Hemoglobin 9.3 g/dL (12.0-16.0); Immature Granulocytes # (auto) 0.12 K/uL (0.00-0.02); Immature Granulocytes % (auto) 0.6 %; Lymphocytes # (auto) 2.76 K/uL (1.2-3.4); Lymphocytes % (auto) 13.5 %; Mean Corpuscular Hgb Conc 34.3 g/dL (32-36); Mean Corpuscular Volume 93.4 fL (80-100); Mean Platelet Volume 9.3 fL (7.4-10.4); Monocytes # (auto) 1.03 K/uL (0.11-0.59); Neutrophils % (auto) 79.9 %; Platelet Count 283 K/uL (130-400); RDW Coefficient of Variation 14.5 % (11.5-14.5); RDW Standard Deviation 49.6 fL (36.4-46.3); White Blood Count 20.42 K/uL (4.8-10.8)
[2019-03-21 06:42] LABS: BUN Creatinine Ratio 19.9 (10-20); Calcium 8.1 mg/dl (8.5-10.1); Est GFR (African American) 116.7; Est GFR (Non-African American) 100.7; Potassium 4.1 mmol/L (3.5-5.1)
[2019-03-21] MEDS ORDERED: ALBUMIN 25% 50 ML IV ONE ×3 (08:57→15:30)
[2019-03-21] MEDS: ALBUTEROL 0.083% NEBU SOLN 3 ML VIAL INH SCH (10:31)
--- NOTE | 2019-03-21 11:01 | Ultrasound Report ---
ULTRASOUND GUIDED DIAGNOSTIC AND THERAPEUTIC. PARACENTESIS CLINICAL HISTORY: worsening ascites COMPARISON STUDY: No previous studies for comparison. PROCEDURE: The risks, benefits, and alternatives to the procedure were discussed with the patient inc luding the risk of bleeding, infection and injury to adjacent structures. The patient agreed to the procedure and informed written consent was obtained. Following real-time ultrasound localization, the skin of the right lower quadrant was prepped and draped. Following local anesthesia with Xylocaine, the sheath paracentesis needle was inserted and approximately 8.2 liters of straw-colored fluid was r emoved by vacuum suction. The patient tolerated the procedure well and no immediate complications were evident. IMPRESSION: Ultrasound-guided paracentesis with removal of 8.2 liters of ascites. 1 L of ascites was sent to the laboratory for analysis as ordered. Electronically signed by: Abisai Escalona M.D. 03/21/2019 11:00 AM
[2019-03-21] MEDS: LACTATED RINGER'S 1,000 ML IV SCH ×2 (11:16→23:43)
[2019-03-21] MEDS: MAGNESIUM OXIDE 400 MG TAB PO SCH (11:18)
[2019-03-21] MEDS: THIAMINE HCL 100 MG TAB PO SCH (11:18)
[2019-03-21] MEDS: MULTIVITAMIN TAB PO SCH (11:18)
[2019-03-21] MEDS: SPIRONOLACTONE 25 MG TAB PO SCH (11:18)
[2019-03-21] MEDS: CYANOCOBALAMIN 500 MCG TABLET (VITAMIN B-12) PO SCH (11:18)
[2019-03-21] MEDS: FOLIC ACID 1 MG TAB PO SCH (11:19)
[2019-03-21] MEDS: FAMOTIDINE 20 MG in SYRINGE 3 ML IV SCH ×2 (12:09→21:19)
[2019-03-21] MEDS: NICOTINE 21 MG/24 HR TDSY TD SCH (12:49)
[2019-03-21] MEDS: TRAMADOL HCL 50 MG TABLET PO PRN ×2 (12:57→21:18)
[2019-03-21] MEDS ORDERED: SODIUM CHLORIDE 0.9% 1000ML 1,000 ML IV SCH (15:20)
[2019-03-21] MEDS ORDERED: cefTRIAXone SODIUM 1,000 MG in DEXTROSE 5% 50 ML IV SCH (16:00)
[2019-03-21] MEDS ORDERED: NURSING DECISION MEDICATION ONE (16:33)
[2019-03-21] MEDS ORDERED: SODIUM CHLORIDE 0.65% NA SOLN 45 ML (OCEAN) PRN (16:37)
[2019-03-21] MEDS ORDERED: HYDROmorphone INJ 0.5 MG/0.5 ML SYR IV STA (23:18)
[2019-03-22] MEDS ORDERED: HYDROmorphone INJ 0.5 MG/0.5 ML SYR IV PRN (00:11)
[2019-03-22] MEDS: MoRPHine SULFATE 4 MG/ML 1 ML CARP\\VIAL IV PRN ×2 (01:42→09:55)
[2019-03-22] MEDS: ALBUTEROL 0.083% NEBU SOLN 3 ML VIAL INH SCH (07:00)
[2019-03-22] MEDS: MAGNESIUM OXIDE 400 MG TAB PO SCH (07:42)
[2019-03-22] MEDS: SPIRONOLACTONE 25 MG TAB PO SCH (07:42)
[2019-03-22] MEDS: CYANOCOBALAMIN 500 MCG TABLET (VITAMIN B-12) PO SCH (07:42)
[2019-03-22] MEDS: MULTIVITAMIN TAB PO SCH (07:42)
[2019-03-22] MEDS: THIAMINE HCL 100 MG TAB PO SCH (07:42)
[2019-03-22] MEDS: FOLIC ACID 1 MG TAB PO SCH (07:42)
[2019-03-22] MEDS: NICOTINE 21 MG/24 HR TDSY TD SCH (07:43)
[2019-03-22] MEDS: FAMOTIDINE 20 MG in SYRINGE 3 ML IV SCH (07:49)
[2019-03-22 08:54] LABS: Hematocrit (blood only) 26.4 % (37-47); Hemoglobin 9.2 g/dL (12.0-16.0); Mean Corpuscular Hgb Conc 34.8 g/dL (32-36); Mean Corpuscular Volume 92.3 fL (80-100); Mean Platelet Volume 9.2 fL (7.4-10.4); Platelet Count 237 K/uL (130-400); RDW Coefficient of Variation 14.4 % (11.5-14.5); RDW Standard Deviation 48.4 fL (36.4-46.3); Red Blood Count 2.86 M/uL (4.2-5.4); White Blood Count 23.35 K/uL (4.8-10.8)
[2019-03-22] MEDS ORDERED: POLYETHYLENE (MIRALAX) 17 GM PACK PO PRN (09:24)
[2019-03-22 09:27] LABS: BUN Creatinine Ratio 14.4 (10-20); Calcium 7.7 mg/dl (8.5-10.1); Creatinine Clr Calc Pharmacy 72.2 ml/min; Est GFR (African American) 123.6; Est GFR (Non-African American) 106.6; Potassium 3.8 mmol/L (3.5-5.1)
[2019-03-22 09:58] LABS: Basophils # (auto) 0.06 K/uL (0-0.2); Basophils % (auto) 0.3 %; Eosinophils # (auto) 0.36 K/uL (0-0.5); Eosinophils % (auto) 1.5 %; Immature Granulocytes # (auto) 0.15 K/uL (0.00-0.02); Immature Granulocytes % (auto) 0.6 %; Lymphocytes # (auto) 2.76 K/uL (1.2-3.4); Lymphocytes % (auto) 11.8 %; Neutrophils # (auto) 18.62 K/uL (1.4-6.5); Neutrophils % (auto) 79.8 %
[2019-03-22] MEDS ORDERED: POLYETHYLENE (MIRALAX) 17 GM PACK PO SCH (10:00)
[2019-03-22] MEDS: LACTATED RINGER'S 1,000 ML IV SCH (12:28)
--- NOTE | 2019-03-22 19:53 | Discharge Summary ---
Date of Service March 22, 2019 Admission HPI Per Admitting Provider Bernie 40-year-old female unfortunately well-known to our service coming back with abdominal pain. She notes of the last few days she has had worsening abdominal pain and distention, as well as some nausea vomiting and diarrhea. She denies any blood in the vomit or diarrhea. She has only been able to keep down soda today, ate some solids yesterday. She notes that right after she eats she has diarrhea. Mostly however her complaints are abdominal distention. She saw her PCP 5 days ago and her distention was worsening again, her PCP worked hard to get her back on her spironolactone and it was GI, but unfortunately the pain and distention got to be too much so she came to the ER today. She also notes significant life stressors with a relative dying, another committing suicide, and because of all of the stress she has gone back to drinking. It's not clear if she's been taking any of her medications. no fevers. some chills and sweats. Principal Diagnosis cirrhosis w painful ascites. ongoing nonspecific leukocytosis. anxiety/depression Discharge Exam General she is awake alert pleasant no distress. HEENT normocephalic atraumatic mucous members moist. Abdomen is soft mildly distended, a little bit worsening of notes that it does not feel significantly worse. There is a little bit of a fluid wave, no guarding/rebound/rigidity. No tenderness no erythema. Her skin is dry Discharge Data Allergies Allergy/AdvReac Type Severity Reaction Status Date / Time Bactrim Allergy Severe CHEST PAIN Unverified 12/26/16 19:35 sulfamethoxazole Allergy Severe CHEST PAIN Verified 03/20/19 15:09 trimethoprim Allergy Severe CHEST PAIN Verified 03/20/19 15:09 Consultations 03/20/19 18:35 ED Decision to Admit Stat Ordered Studies 03/20/19 14:12 CT abd pelvis wo con Stat 03/21/19 20:33 US paracentesis abd w/image Routine Hospital Course (1) Ascites: Her main presenting problem was painful ascites. Fortunately she did not have signs or symptoms of SBP. A therapeutic paracentesis helped improve her situation. On discussion with patient, as well as review of PCP notes, it seems that adherence to her spironolactone is been subpar, we emphasized importance of this. Discharged to the new prescription, outpatient follow-up/BMP next week. Low-sodium diet. Given her propensity to reaccumulate ascites, right now we have presumptively gotten her scheduled for a therapeutic paracentesis as an outpatient in about 2 weeks, and given that over the last month she has needed a therapeutic paracentesis approximately every other week. Should the spironolactone actually slow her ascites reaccumulation, this may be rescheduled or canceled. (2) Cirrhosis: Extensive discussions with patient throughout her hospital stay, noting that while right now she is not to a point of true "point of no return" with her liver disease, it is not clear how much further she will be able to push her hepatic failure before she causes herself to pass. We discussed that with this it is critically important that she never drink again. We discussed that her stress anxiety and depression all lead to her drinking, but that she desperately needs to utilize other coping skills. See below. (3) Hyponatremia: Related to her cirrhosis/ascites. Outpatient follow-up. (4) Elevated WBC count: Nonspecific leukocytosis. She had a peripheral smear about 2 weeks ago that was also nonspecific predominantly neutrophils. No atypical cells of note. She is not showing any signs or symptoms of sepsis. She has enterococcus in her urine culture, but no urinary symptoms, strongly suggesting this to be a contaminant. (5) ETOH abuse: See above, yesterday and today I lovingly but firmly emphasized a dire need to quit, and an enormous risk of permanent worsening or possibly imminent should she continue to drink. (6) Anxiety and depression: Seems to be the root cause of her drinking, we had extensive discussions yesterday and today on management of life stressors, and the fact that life is generally messy and stressors will arise over and over again, and that when people struggle with addictions, generally life stressors lead to them relapsing. We discussed the desperate need for other coping mechanisms, and specifically pointed out prayer, coloring, riding the motorcycle side car with her , and taking walks as productive means of stress management that may keep her from drinking. She is asked about medications for anxiety, we discussed extensively that most research shows that this is not a "magic bullet" or even major part of the solution for anxiety and depression, but that it may play a role complementary in improving her symptoms, and given the desperate need for her to not fall back on drinking a stress management, it would be quite reasonable to try. She has not been taking the BuSpar prescribed, she is also now willing to take an SSRI as appears to have been recommended by her PCP multiple times. For now we will start her on 5 mg of Lexapro and 5 mg of BuSpar daily, low dosing due to her liver disease and to ensure tolerability, and that her PCP can titrate up as possible. We also discussed the Klonopin question, as she was requesting this, and I discussed with her quite frankly that it does not really do anything to fix anxiety, and given that it works by a mechanism on neurons similar to alcohol, the concern would be that once she had 1 dose escalating dosing on her own to the point of overdose/respiratory failure/ would be a very real concern. She expressed a very good understanding of this and expressed that she now realizes that benzodiazepines would not be a good answer for her. Total Time Total Time Spent Total Time Spent (In Minutes): >30 Discharge Plan Discharge Items Patient Disposition: Home - Self-Care Reason For Visit: VOMITING, SWOLLEN FEET, CIRRHOSIS OF LIVER Discharge Diagnosis: cirrhosis, ascites (belly swelling related to cirrhosis) Discharge Goals: Diagnostic testing and Therapeutic intervention Activity: Resume your previous activity Non-emergency contact: Primary Care Provider Call non-emergency contact if: you have any medication questions, your pain is not controlled, your pain is worsening and your temperature is above 101 Follow-up/Referrals: Kiran Cr CRNP [Nurse Practitioner] - 04/04/19 8:00 am (An appointment has been made at your PCP's office on your behalf. Please call the office with any questions or concerns. ) Diet: Low Sodium (2gm) Addtl Provider Instructions: ascites (fluid collection in your belly related to liver disease) -this is accumulating related to the liver disease -for now we have to look at it as something that we can't "fix" as much as try to keep up with (the longer we can space out time between needing drained the better - but until/unless your liver gets some time to heal, the repeated swelling is a problem that will need ongoing management) -the spironolactone is a diuretic that has some benefit in slowing rates of filling up with fluid -Dr Colvin may also end up adding furosemide as a secondary diuretic, a lthough this one can make people a little more prone to getting dehydrated so usually we add it later if the spironolactone isn't helping enough -An appointment has been made on your behalf with radiology to see you in two weeks, assuming by your recent course that you'll probably need drained again in another two weeks or so. if you're doing better and can cancel, then great. Wednesday, 04/05 please present to [facility] main entrance at 9:30am for your ultrasound guided paracentesis at 10am. -with the spironolactone, they'll want to follow labwork (basic metabolic pa ignacia next week, then periodically thereafter) to make sure your electrolytes stay OK (sometimes it can dehydrate people - less common than other diuretics, and it can possibly raise potassium -- both of which get fixed by stopping the med or reducing the dose, but for now we'll follow up the labwork as those problems don't happen at all in a lot of people) -try to stay low in sodium intake (less than 2000mg a day) -- when you eat anything with sodium, it will cause you to retain fluid, which will make your belly swell faster cirrhosis (liver disease) -this is, of course, brought on by alcohol -right now things are severe, but it doesn't appear that you're "beyond the point of no return" -- things could almost definitely stabilize, and possibly improve, if you can stop drinking. -what really has me worried is that things ARE severe enough that I really don't know if you keep drinking "how many more strikes" you have before you really do cross a line we can't bring you back from - we're really at a point that it's critical (not just for hopes for improvement, but for survival) that you stop drinking stress/anxiety -remember as we talked, life is messy and stressful things happen -when covering up stress symptoms with alcohol is your main coping skill, unfortunately the next time something bad happens, you'll likely relapse and push your liver further to the brink -most important is working on true coping skills to work through life stressors and anxiety -the things you're already doing that you can focus on would be prayer, going on a ride with your , taking a walk, and coloring -we'll try to help with medications, but as we discussed, medications AT BEST help people on the order of about 20% -- still the huge majority of improvement with anxiety/stress/depression comes from working on handling stress/better coping skills/etc -we'll restart buspar (buspirone) (you were right - you were on it before) at a low dose (to make sure you tolerate it with your liver) --> 5mg daily for now. as long as it's sitting well, Dr Colvin can slowly increase the dose. -at the same time, we'll start you on lexapro (escitalopram) at 5mg daily. (dose range is 5-20mg, like the buspar we'll start low to make sure you tolerate it with your liver, and then Dr Colvin can increase the dose. as we discussed, sometimes startup side effects happen, and can last for a few days. most commonly it would be feeling nauseated, or sometimes feeling more arias/emotionally erratic. if either symptoms happen and last for more than ~3- 4 days, then stop the medication and talk to Dr Colvin about other options. if the moodiness were severe (ie feeling suicidal or uncontrollable) stop the medicine and come right back to the hospital. because we're starting so low, the startup side effects are not likely to occur, but since it usually takes ~3- 4 weeks to feel much effect from any dose change, it just might take you longer to get to an "effective" dose -to reiterate, the medications won't "fix" the anxiety/stress/depression, but because they may make a dent, and making a dent may help you drink less, it's well worth trying. elevated white blood cell count -you're still running high. a few weeks ago we had the pathologist look at your white blood cells under a microscope, and nothing looked consistent with leukemia/lymphoma/etc -- so you appear to just "run high" -- but we'd want Dr Colvin to keep an eye on things with a blood count (CBC) next week Prescriptions: New escitalopram oxalate 5 mg tablet 5 mg PO DAILY Qty: 30 RF: 0 Continued mecobalamin (vitamin B12) 1,000 mcg tablet,disintegrating 1,000 mcg SL DAILY Qty: 30 RF: 5 thiamine HCl (vitamin B1) 100 mg tablet 100 mg PO DAILY Qty: 30 RF: 5 tramadol 50 mg tablet 50 mg PO Q6H PRN (Reason: pain) RF: 0 multivitamin tablet 1 tab PO DAILY RF: 0 magnesium oxide 400 mg (241.3 mg magnesium) tablet 400 mg PO .TAKE 1 TABLET ONCE D RF: 0 albuterol sulfate 2.5 mg /3 mL (0.083 %) solution for nebulization 2.5 mg inhalation .USE 1 UNIT DOSE EVER Qty: 1 RF: 0 hydroxyzine HCl 25 mg tablet See Patient Comments PO .COMPLEX PRN (Reason: Anxiety) Qty: 30 RF: 0 folic acid 1 mg tablet 1 mg PO DAILY Qty: 30 RF: 5 buspirone 5 mg tablet 5 mg PO DAILY Qty: 30 RF: 0 spironolactone 25 mg tablet 50 mg PO QAM Qty: 60 RF: 1 Discontinued spironolactone 25 mg tablet 25 mg PO QAM Qty: 30 RF: 1 buspirone 5 mg tablet 5 mg PO BID Qty: 60 RF: 0 Stand-Alone Forms: Call Back Authorization, [facility] Discharge Orders: Discharge Order (Routine); Ordered 03/22/19 Ordered By: Miguel Ángel Neal Admission Data Admit Date/Time: 03/20/19 19:07 Attending Provider: Miguel Ángel Neal Admit Provider: Miguel Ángel Neal Primary Care Provider: Luzma Colvin Other Providers: Elise Shi Service: Medical Other Interventions: Discharge Summary Assessment (RN) Last Done: 03/22/19 14:02 DC Date/Time DO NOT enter until pt leaves facility: 03/22/19 14:41
== END 2019-03-22 14:41 | disposition home or self-care (01) | DRG 433 ==
LOC: ED 12:55 → 4E 19:07

== ENCOUNTER 2019-03-25 15:09 | Inpatient (IN) ==
--- NOTE | 2019-03-25 16:52 | XRay Report ---
XR lumbar spine 2-3V CLINICAL HISTORY: 48 years-old Female presenting with lower back pain. TECHNIQUE: Frontal, lateral, and coned-down lateral views of the lumbar spine were obtained. COMPARISON: 02/18/2019. FINDINGS: No scoliosis. Normal lumbar lordosis. Vertebral bodies maintain normal height and alignment. Interver tebral disc heights preserved. No osseous neural foraminal narrowing. No compression deformity or sub luxation. Atherosclerotic calcifications noted. Nonobstructive bowel gas pattern. IMPRESSION: No radiographic evidence of acute osseous injury or advanced degenerative change of the lumbar spine. Electronically signed by: Jeffrey Becerra M.D. 03/25/2019 4:50 PM
[2019-03-25 16:53] LABS: INR 1.4 (0.9-1.1); Prothrombin Time 13.6 Seconds (9.0-12.0)
[2019-03-25 16:58] LABS: Albumin Level 2.3 gm/dl (3.4-5.0); BUN Creatinine Ratio 7.3 (10-20); Calcium 8.3 mg/dl (8.5-10.1); Creatinine Clr Calc Pharmacy 14.9 ml/min; Est GFR (African American) 21.8; Est GFR (Non-African American) 18.8; Potassium 4.8 mmol/L (3.5-5.1)
[2019-03-25 16:59] LABS: Hematocrit (blood only) 34.1 % (37-47); Hemoglobin 11.9 g/dL (12.0-16.0); Mean Corpuscular Hgb Conc 34.9 g/dL (32-36); Mean Corpuscular Volume 92.2 fL (80-100); Mean Platelet Volume 9.9 fL (7.4-10.4); Platelet Count 371 K/uL (130-400); RDW Coefficient of Variation 15.2 % (11.5-14.5); RDW Standard Deviation 50.7 fL (36.4-46.3); White Blood Count 32.82 K/uL (4.8-10.8)
[2019-03-25 17:00] LABS: Albumin Globulin Ratio 0.6 (0.9-2); Bilirubin,Total 0.8 mg/dl (0.2-1); Total Protein 6.3 gm/dl (6.4-8.2)
[2019-03-25 17:02] LABS: Basophilic Stippling Occasional; Basophils # (auto) 0.09 K/uL (0-0.2); Basophils % (auto) 0.3 %; Echinocytes 1+; Eosinophils # (auto) 0.32 K/uL (0-0.5); Immature Granulocytes # (auto) 0.55 K/uL (0.00-0.02); Immature Granulocytes % (auto) 1.7 %; Lymphocytes # (auto) 3.77 K/uL (1.2-3.4); Lymphocytes % (auto) 11.5 %; Monocytes # (auto) 3.31 K/uL (0.11-0.59); Monocytes % (auto) 10.1 %; Neutrophils # (auto) 24.78 K/uL (1.4-6.5); Neutrophils % (auto) 75.4 %; Polychromasia 1+
[2019-03-25] MEDS ORDERED: IBUPROFEN 200 MG TAB PO STA (17:18)
[2019-03-25] MEDS ORDERED: SODIUM CHLORIDE 0.9% 1000ML 1,000 ML IV ONE (17:51)
--- NOTE | 2019-03-25 17:56 | XRay Report ---
XR chest 1V portable CLINICAL HISTORY: 48 years-old Female presenting with wbc 33k. TECHNIQUE: Portable upright AP view of the chest was obtained. COMPARISON: 03/05/2019. FINDINGS: Atherosclerosis of the aortic arch. Cardiac silhouette normal in size. Lungs and pleural spaces clear . Osseous structures normal. Upper abdomen normal. IMPRESSION: 1. No acute cardiopulmonary disease. Electronically signed by: Jeffrey Becerra M.D. 03/25/2019 5:54 PM
[2019-03-25 19:29] LABS: Cdiff Antigen Positive
[2019-03-25 19:30] LABS: Cdiff Toxin A+B Positive Cdiff Toxin (Negative)
[2019-03-25] MEDS ORDERED: VANCOMYCIN HCL 250 MG/5 ML SOLN PO STA (20:08)
--- NOTE | 2019-03-25 20:30 | History & Physical Report ---
Date of Service March 25, 2019 Assessment & Plan (1) C. difficile colitis: C. difficile colitis- Placed on vancomycin 125 mg p.o. 4 times daily. Present on Admission?: Yes (2) Dehydration: Gentle rehydration with IV fluids. Present on Admission?: Yes (3) Ascites due to alcoholic cirrhosis: Has been undergoing periodic paracentesis. Present on Admission?: Yes (4) ETOH abuse: Continue to take oral folic acid, multivitamin, thiamine. For now hold spironolactone Negative alcohol level on 03/20. Has not shown signs of withdrawal while in the ED. Hold on alcohol withdrawal program. Ativan 1 mg IV every 4 hours as needed Present on Admission?: Yes (5) Anxiety and depression: Continue buspirone 5 mg p.o. daily and Escitalopram daily. Present on Admission?: Yes (6) Tobacco abuse: Counseling. NicoDerm patch if request Present on Admission?: Yes History of Present Illness Chief Complaint: The patient presents to the ED with complaint of low back pain, diarrhea for the past 1 1/2 weeks Primary Care Provider: Luzma Colvin DO The patient is a 48-year-old female with a past medical history including alcoholic cirrhosis with ascites, tobacco abuse, alcohol abuse, hyponatremia, anxiety and depression, diabetes mellitus who presents to the emergency department with complaint of chronic low back pain and complaint of loose stools over the past 1-1/2 weeks. She denies any recent travels or sick exposures. She has not eaten any new or questionable foods. She denies being on any recent antibiotics Allergies Allergy/AdvReac Type Severity Reaction Status Date / Time Bactrim Allergy Severe CHEST PAIN Unverified 12/26/16 19:35 sulfamethoxazole Allergy Severe CHEST PAIN Verified 03/25/19 17:04 trimethoprim Allergy Severe CHEST PAIN Verified 03/25/19 17:04 Home Medications Home Medications Medication Instructions Recorded Confirmed Type albuterol sulfate 2.5 mg/3 mL 2.5 mg INHALATION Q4H PRN #1 ml 03/15/19 03/25/19 History (0.083 %) solution for nebulization folic acid 1 mg tablet 1 mg PO DAILY #30 tab 03/15/19 03/25/19 Rx multivitamin tablet 1 tab PO DAILY 03/15/19 03/25/19 History mecobalamin (vitamin B12) 1,000 1,000 mcg SL DAILY #30 tab 03/16/19 03/25/19 Rx mcg disintegrating tablet,sublingual thiamine HCl (vitamin B1) 100 mg 100 mg PO DAILY #30 tab 03/16/19 03/25/19 Rx tablet buspirone 5 mg PO DAILY #30 tab 03/22/19 03/25/19 Rx escitalopram oxalate 5 mg PO DAILY #30 tab 03/22/19 03/25/19 Rx spironolactone 50 mg PO QAM #60 tab 03/22/19 03/25/19 Rx Past Med/Surg History Medical History Abdominal pain Diabetes Heart disease Liver disease due to alcohol (Acute) Alcohol withdrawal Bronchitis Pneumonia Pneumonia Surgical History H/O dilation and curettage Previous section Family History Sister Drug abuse Father Stroke Hypertension Dyslipidemia (high LDL; low HDL) Mother Depression Stroke Hypertension Other No significant family history Social History Preferred Language: Albanian Communication Ability: Effective Beliefs That Will Affect Care: Synagogue Synagogue Beliefs: Scientologist marital status: Current Living Situation: Spouse and Family Current Living Situation Comment: , "his son, my dtr, her dtr and my son" Other Information That Helps Us Care for You: No Feels Safe at Home: Yes Safety Concerns: Feels Safe At This Time and Afraid for Self Smoking Status: Current every day smoker Tobacco Type: cigarettes Cigarettes Per Day: 20 Do You Dip or Chew Tobacco: No Second Hand Exposure: No Tobacco Cessation Education Requested by Patient: No Hx Alcohol Use: Yes (known alcoholism) Alcohol type: beer and hard liquor Hx Substance Use: No Review of Systems Review of Systems: The patient denies chest pain, palpitations, shortness of breath, dyspnea on exertion, cough, lower extremity swelling, sore throat, fevers, chills, sweats, nausea, vomiting, constipation, blood in urine or stool, dysuria, urinary frequency or urgency, lightheadedness, dizziness, headache, memory loss, loss of consciousness, rash, abnormal bruising or bleeding, imbalance, focal weakness, numbness or tingling in arms or legs, generalized arthralgias or myalgias, back or neck pain, or night sweats. The review of systems is otherwise negative other than for that already noted above, and at least 10 systems have been reviewed. Physical Exam Physical Exam: The patient is awake, alert and oriented 3, looks malnourished, normocephalic and atraumatic, lying in bed and in no acute distress. HEENT--PERRL, EOMI, mucous membranes and oropharynx dry. Neck--supple. No JVD. No bruits. Thyroid normal, trachea midline, no adenopathy. Heart--normal S1 and S2. No murmurs, rubs or gallops. Lungs--clear bilaterally, no respiratory distress, no accessory muscle use. Abdomen--normal bowel sounds and soft. Nontender. Distended and tympanitic. Extremities--no cyanosis or clubbing. 2+ bilateral pretibial and pedal pitting edema. There are good distal pulses b/l. Dermatologic--normal skin turgor, normal color, no abnormal lymph nodes, no rash. Neurologic--cranial nerves II through XII grossly intact. Rheumatologic--normal range of motion. Psychiatric--normal affect. Results & Data Vital Signs (Past 12 Hours) Vital Signs Temp Pulse Resp BP Pulse Ox 03/25/19 19:00 88 19 112/73 99 03/25/19 18:35 90 18 100 03/25/19 18:34 90 21 111/65 03/25/19 18:02 88 19 100 03/25/19 18:01 94 H 18 94/63 L 100 03/25/19 18:00 95 H 18 100 03/25/19 17:30 89 20 100 03/25/19 17:01 89 16 85/39 L 100 03/25/19 17:00 90 17 100 03/25/19 16:30 89 22 98 03/25/19 16:25 89 19 99 03/25/19 16:22 89 20 87/55 L 99 03/25/19 15:25 98.1 F 101 H 18 88/55 L 100 Laboratory Results Laboratory Results WBC 32.82 K/uL (4.8-10.8) H* 03/25/19 16:18 RBC 3.70 M/uL (4.2-5.4) L 03/25/19 16:18 Hgb 11.9 g/dL (12.0-16.0) L 03/25/19 16:18 Hct 34.1 % (37-47) L 03/25/19 16:18 MCV 92.2 fL (80-100) 03/25/19 16:18 MCH 32.2 pg (25-34) 03/25/19 16:18 MCHC 34.9 g/dL (32-36) 03/25/19 16:18 RDW Std Deviation 50.7 fL (36.4-46.3) H 03/25/19 16:18 RDW Coeff of Spenser 15.2 % (11.5-14.5) H 03/25/19 16:18 Plt Count 371 K/uL (130-400) 03/25/19 16:18 MPV 9.9 fL (7.4-10.4) 03/25/19 16:18 Immature Gran % (Auto) 1.7 % 03/25/19 16:18 Neut % (Auto) 75.4 % 03/25/19 16:18 Lymph % (Auto) 11.5 % 03/25/19 16:18 [place] % (Auto) 10.1 % 03/25/19 16:18 Eos % (Auto) 1.0 % 03/25/19 16:18 Baso % (Auto) 0.3 % 03/25/19 16:18 Immature Gran # (Auto) 0.55 K/uL (0.00-0.02) H 03/25/19 16:18 Neut # (Auto) 24.78 K/uL (1.4-6.5) H 03/25/19 16:18 Lymph # (Auto) 3.77 K/uL (1.2-3.4) H 03/25/19 16:18 [place] # (Auto) 3.31 K/uL (0.11-0.59) H 03/25/19 16:18 Eos # (Auto) 0.32 K/uL (0-0.5) 03/25/19 16:18 Baso # (Auto) 0.09 K/uL (0-0.2) 03/25/19 16:18 Polychromasia 1+ 03/25/19 16:18 Basophilic Stippling Occasional 03/25/19 16:18 Echinocytes 1+ 03/25/19 16:18 PT 13.6 Seconds (9.0-12.0) H 03/25/19 16:18 INR 1.4 (0.9-1.1) H 03/25/19 16:18 Sodium 130 mmol/L (136-145) L 03/25/19 16:18 Potassium 4.8 mmol/L (3.5-5.1) 03/25/19 16:18 Chloride 97 mmol/L (98-107) L 03/25/19 16:18 Carbon Dioxide 20 mmol/L (21-32) L 03/25/19 16:18 Anion Gap 13.0 (3-11) H 03/25/19 16:18 BUN 21 mg/dl (7-18) H 03/25/19 16:18 Creatinine 2.84 mg/dl (0.6-1.2) H 03/25/19 16:18 Est Cr Clr Drug Dosing 14.9 ml/min 03/25/19 16:18 Est GFR ( Amer) 21.8 03/25/19 16:18 Est GFR (Non-Af Amer) 18.8 03/25/19 16:18 BUN/Creatinine Ratio 7.3 (10-20) L 03/25/19 16:18 Glucose 98 mg/dl (70-99) 03/25/19 16:18 Calcium 8.3 mg/dl (8.5-10.1) L 03/25/19 16:18 Total Bilirubin 0.8 mg/dl (0.2-1) 03/25/19 16:18 AST 75 U/L (15-37) H 03/25/19 16:18 ALT 28 U/L (12-78) 03/25/19 16:18 Alkaline Phosphatase 287 U/L (45-117) H 03/25/19 16:18 Total Protein 6.3 gm/dl (6.4-8.2) L 03/25/19 16:18 Albumin 2.3 gm/dl (3.4-5.0) L 03/25/19 16:18 Globulin 4.0 gm/dl (2.5-4.0) 03/25/19 16:18 Albumin/Globulin Ratio 0.6 (0.9-2) L 03/25/19 16:18 Lipase 111 U/L (73-393) 03/25/19 16:18 Stl C. diff Tox B Gene Positive Cdiff Gene (Neg) H 03/25/19 17:30 Stl C.difficile Tox A&B Positive Cdiff Toxin (Negative) A* 03/25/19 17:30 Diagnostic Findings [facility], [place] [phone] XRay Report Patient: MARIA ELENA RANDLE Date: 03/25/19 MR#: [id number]: [address] [facility], [address] Acct ID:[id number]: Date: 1970[facility] Zip: [place] [address] Age: 48Location: ED Sex: F Room/Bed: Att Phy: Diagnosis: SWELLING OF FEET,LIVER PROBLEMS Darlene Phy: Luzma Colvin, DOService Date: 03/25/19 Fam Phy: Interpreting Phy: Jeffrey Becerra MD Admit Phy: Ordering Phy: Miguel Ángel Doan, cc: ~ XR lumbar spine 2-3V CLINICAL HISTORY: 48 years-old Female presenting with lower back pain. TECHNIQUE: Frontal, lateral, and coned-down lateral views of the lumbar spine were obtained. COMPARISON: 02/18/2019. FINDINGS: No scoliosis. Normal lumbar lordosis. Vertebral bodies maintain normal height and alignment. Intervertebral disc heights preserved. No osseous neural for aminal narrowing. No compression deformity or subluxation. Atherosclerotic calcifications noted. Nonobstructive bowel gas pattern. IMPRESSION: No radiographic evidence of acute osseous injury or advanced degenerative change of the lumbar spine. Electronically signed by: Jeffrey Becerra M.D. 03/25/2019 4:50 PM Dictated: 03/25/19 1649 Transcribed: 03/25/19 1649 [facility], [place] [phone] XRay Report Patient: MARIA ELENA RANDLE Date: 03/25/19 MR#: [id number]: [address] [facility] Acct ID:[id number]: Date: 1970[facility] Zip: [place] [address] Age: 48Location: ED Sex: F Room/Bed: Att Phy: Diagnosis: SWELLING OF FEET,LIVER PROBLEMS Darlene Phy: Luzma Colvin, DOService Date: 03/25/19 [facility] Phy: Interpreting Phy: Jeffrey Becerra MD Admit Phy: Ordering Phy: Miguel Ángel Doan, cc: ~ XR chest 1V portable CLINICAL HISTORY: 48 years-old Female presenting with wbc 33k. TECHNIQUE: Portable upright AP view of the chest was obtained. COMPARISON: 03/05/2019. FINDINGS: Atherosclerosis of the aortic arch. Cardiac silhouette normal in size. Lungs and pleural spaces clear. Osseous structures normal. Upper abdomen normal. IMPRESSION: 1. No acute cardiopulmonary disease. Electronically signed by: Jeffrey Becerra M.D. 03/25/2019 5:54 PM Dictated: 03/25/191753 Transcribed: 03/25/191753 Code Status & VTE Plan Code Status Full code VTE Prophylaxis Plan VTE Prophylaxis will be ordered: Yes PG Care Time/CCT Total # of Minutes Spent Total Time Spent with Patient: Total time spent is greater than 50% in coordination of care (as documented) at patient's floor/unit and/or counseling patient:
[2019-03-25] MEDS ORDERED: ALBUTEROL 0.083% NEBU SOLN 3 ML VIAL INH PRN (22:28)
--- NOTE | 2019-03-25 22:41 | Emergency Department Note ---
Entered by Milagro Ríos acting as a scribe for Miguel Ángel Doan DO History of Present Illness General Chief complaint: Swelling/Edema to Extremity Stated complaint: SWELLING OF FEET,LIVER PROBLEMS Source: patient History of Present Illness Provider complaint: feet pain and swelling Onset (ago): day(s) (several days) Location: foot, left and right Radiation: non-radiation Pain Consistency: + other (worsening) Maximum Pain Intensity: 8 Relieved By: + none Associated symptoms: + nausea/vomiting (+nausea, -vomting); no fever/chills and no shortness of breath The patient is a 48 year old female who presents to the Emergency Room with complaints of worsening pain and swelling in her feet bilaterally. The patient was recently admitted and discharged. She reports that she has been having new feet pain and swelling in her feet for the past several days. The patient states that she has been having back pain that has radiated to her abdomen that has been the same since her last admission. The patient denies any shortness of breath while lying down, fever, and vomiting. She reports that she has been having slight nausea. She states that her last bowel movement was 1 hour ago. 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 The patient was non-compliant with spironolactone and is still drinking. Home Medications Home Medications Medication Instructions Recorded Confirmed Type albuterol sulfate 2.5 mg/3 mL 2.5 mg INHALATION Q4H PRN #1 ml 03/15/19 03/25/19 History (0.083 %) solution for nebulization folic acid 1 mg tablet 1 mg PO DAILY #30 tab 03/15/19 03/25/19 Rx multivitamin tablet 1 tab PO DAILY 03/15/19 03/25/19 History mecobalamin (vitamin B12) 1,000 1,000 mcg SL DAILY #30 tab 03/16/19 03/25/19 Rx mcg disintegrating tablet,sublingual thiamine HCl (vitamin B1) 100 mg 100 mg PO DAILY #30 tab 03/16/19 03/25/19 Rx tablet buspirone 5 mg PO DAILY #30 tab 03/22/19 03/25/19 Rx escitalopram oxalate 5 mg PO DAILY #30 tab 03/22/19 03/25/19 Rx spironolactone 50 mg PO QAM #60 tab 03/22/19 03/25/19 Rx Allergies Allergy/AdvReac Type Severity Reaction Status Date / Time Bactrim Allergy Severe CHEST PAIN Unverified 12/26/16 19:35 sulfamethoxazole Allergy Severe CHEST PAIN Verified 03/25/19 17:04 trimethoprim Allergy Severe CHEST PAIN Verified 03/25/19 17:04 Past Med/Surg History Medical History Abdominal pain Diabetes Heart disease Liver disease due to alcohol (Acute) Alcohol withdrawal Bronchitis Pneumonia Pneumonia Surgical History H/O dilation and curettage Previous section Family History Sister Drug abuse Father Stroke Hypertension Dyslipidemia (high LDL; low HDL) Mother Depression Stroke Hypertension Other No significant family history Social History Preferred Language: American Communication Ability: Effective Beliefs That Will Affect Care: Evangelical Evangelical Beliefs: Yarsanism marital status: Current Living Situation: Spouse and Family Current Living Situation Comment: , "his son, my dtr, her dtr and my son" Feels Safe at Home: Yes Smoking Status: Current every day smoker Tobacco Type: cigarettes Cigarettes Per Day: 20 Second Hand Exposure: No Hx Alcohol Use: Yes (known alcoholism) Alcohol type: beer and hard liquor Hx Substance Use: No Review of Systems See HPI for pertinent positives & negatives. and A total of 10 systems reviewed and were otherwise negative Physical Exam Vital Signs Vital Signs - 24 hr 03/25/19 15:25 03/25/19 16:22 03/25/19 16:25 Temperature 36.7 C Temperature Source Oral Sepsis Recent Fever Within 48 Hours No Sepsis New/Unexplained Change in Mental Status No Sepsis Action Taken by Nursing No Action Required Pulse Rate 101 H 89 89 Pulse Rate from SpO2 Sensor 87 89 Respiratory Rate 18 20 19 Blood Pressure 88/55 L 87/55 L Blood Pressure Mean 66 65 Blood Pressure Position Sitting Pulse Oximetry 100 99 99 Oxygen Delivery Method Room Air 03/25/19 16:30 03/25/19 17:00 03/25/19 17:01 Temperature Temperature Source Sepsis Recent Fever Within 48 Hours Sepsis New/Unexplained Change in Mental Status Sepsis Action Taken by Nursing Pulse Rate 89 90 89 Pulse Rate from SpO2 Sensor 88 90 89 Respiratory Rate 22 17 16 Blood Pressure 85/39 L Blood Pressure Mean 54 Blood Pressure Position Pulse Oximetry 98 100 100 Oxygen Delivery Method 03/25/19 17:30 03/25/19 18:00 03/25/19 18:01 Temperature Temperature Source Sepsis Recent Fever Within 48 Hours Sepsis New/Unexplained Change in Mental Status Sepsis Action Taken by Nursing Pulse Rate 89 95 H 94 H Pulse Rate from SpO2 Sensor 90 94 H 93 H Respiratory Rate 20 18 18 Blood Pressure 94/63 L Blood Pressure Mean 73 Blood Pressure Position Pulse Oximetry 100 100 100 Oxygen Delivery Method 03/25/19 18:02 03/25/19 18:34 03/25/19 18:35 Temperature Temperature Source Sepsis Recent Fever Within 48 Hours Sepsis New/Unexplained Change in Mental Status Sepsis Action Taken by Nursing Pulse Rate 88 90 90 Pulse Rate from SpO2 Sensor 88 90 Respiratory Rate 19 21 18 Blood Pressure 111/65 Blood Pressure Mean 80 Blood Pressure Position Pulse Oximetry 100 100 Oxygen Delivery Method 03/25/19 19:00 03/25/19 19:30 03/25/19 19:31 Temperature Temperature Source Sepsis Recent Fever Within 48 Hours Sepsis New/Unexplained Change in Mental Status Sepsis Action Taken by Nursing Pulse Rate 88 87 88 Pulse Rate from SpO2 Sensor 88 88 88 Respiratory Rate 19 13 13 Blood Pressure 112/73 112/75 Blood Pressure Mean 86 87 Blood Pressure Position Pulse Oximetry 99 97 97 Oxygen Delivery Method 03/25/19 20:00 Temperature Temperature Source Sepsis Recent Fever Within 48 Hours Sepsis New/Unexplained Change in Mental Status Sepsis Action Taken by Nursing Pulse Rate 93 H Pulse Rate from SpO2 Sensor 93 H Respiratory Rate 18 Blood Pressure 106/70 Blood Pressure Mean 82 Blood Pressure Position Pulse Oximetry 99 Oxygen Delivery Method GENERAL: chronically ill, malnourished, cachectic, disheveled EYE EXAM: normal conjunctiva OROPHARYNX: no exudate, no erythema, lips, buccal mucosa, and tongue normal and mucous membranes are moist NECK: supple, no nuchal rigidity, no adenopathy, non-tender LUNGS: Clear to auscultation. Normal chest wall mechanics HEART: no murmurs, S1 normal and S2 normal ABDOMEN: abdomen distended. Positive fluid wave. Drainage of clear fluid in right lower abdomen. BACK: Back has small amount of pitting edema in lower back. SKIN: no rashes and no bruising UPPER EXTREMITIES: upper extremities are grossly normal. LOWER EXTREMITIES: Calves are equal bilateral with pitting edema. 3/4 feet. 1/4 legs. NEURO EXAM: Normal sensorium, cranial nerves II-XII grossly intact, normal speech, no gross weakness of arms, no gross weakness of legs. Course 1553: The patient was evaluated in room A3, and a complete history and physical examination were performed. 1830: I reevaluated the patient and updated her test results, the patient is resting comfortably. 1840: I reviewed the patient's case with Dr. Shi- [facility] Hospitalist. She will evaluate the patient for further management. Administered Medications Raspberry (Raspberry) 5 ml PO Q6 CHEN Stop: 04/09/19 00:00 Last Admin: 03/25/19 20:43 Dose: 5 ml Documented by: [id number] Discontinued Medications Sodium Chloride (Nss 1000ml) 1,000 mls @ 999 mls/hr IV .Q1H1M ONE Stop: 03/25/19 18:51 Last Infusion: 03/25/19 19:06 Dose: 0 mls/hr Documented by: [id number] Admin: 03/25/19 18:01 Dose: 999 mls/hr Documented by: [id number] Ibuprofen (Advil) 400 mg PO NOW STA Stop: 03/25/19 17:19 Last Admin: 03/25/19 17:24 Dose: 400 mg Documented by: [id number] Vancomycin HCl (Vancomycin Hcl) 250 mg PO NOW STA Stop: 03/25/19 20:09 Last Admin: 03/25/19 20:43 Dose: 250 mg Documented by: [id number] Medical Decision Making Differential Diagnosis Differential diagnosis: Etiologies such as metabolic, infection, hypo/hyperglycemia, electrolyte abnormalities, cardiac sources, intracerebral event, toxicologic, neurologic, as well as others were entertained. Medical Records Attestation: I reviewed the patient's medical records. Home Medications Current Medication List: was personally reviewed by me Laboratory Data Attestation: I reviewed the patient's lab results. Result diagrams: 03/25/19 16:18 03/25/19 16:18 Lab Results 03/25/19 03/25/19 03/25/19 Range/Units 16:18 16:18 16:18 WBC 32.82 H* (4.8-10.8) K/uL RBC 3.70 L (4.2-5.4) M/uL Hgb 11.9 L (12.0-16.0) g/dL Hct 34.1 L (37-47) % MCV 92.2 (80-100) fL MCH 32.2 (25-34) pg MCHC 34.9 (32-36) g/dL RDW Std Deviation 50.7 H (36.4-46.3) fL RDW Coeff of Spenser 15.2 H (11.5-14.5) % Plt Count 371 (130-400) K/uL MPV 9.9 (7.4-10.4) fL Immature Gran % (Auto) 1.7 % Neut % (Auto) 75.4 % Lymph % (Auto) 11.5 % [place] % (Auto) 10.1 % Eos % (Auto) 1.0 % Baso % (Auto) 0.3 % Immature Gran # (Auto) 0.55 H (0.00-0.02) K/uL Neut # (Auto) 24.78 H (1.4-6.5) K/uL Lymph # (Auto) 3.77 H (1.2-3.4) K/uL [place] # (Auto) 3.31 H (0.11-0.59) K/uL Eos # (Auto) 0.32 (0-0.5) K/uL Baso # (Auto) 0.09 (0-0.2) K/uL Polychromasia 1+ Basophilic Stippling Occasional Echinocytes 1+ PT 13.6 H (9.0-12.0) Seconds INR 1.4 H (0.9-1.1) Sodium 130 L (136-145) mmol/L Potassium 4.8 (3.5-5.1) mmol/L Chloride 97 L (98-107) mmol/L Carbon Dioxide 20 L (21-32) mmol/L Anion Gap 13.0 H (3-11) BUN 21 H (7-18) mg/dl Creatinine 2.84 H (0.6-1.2) mg/dl Est Cr Clr Drug Dosing 14.9 ml/min Est GFR ( Amer) 21.8 Est GFR (Non-Af Amer) 18.8 BUN/Creatinine Ratio 7.3 L (10-20) Glucose 98 (70-99) mg/dl Calcium 8.3 L (8.5-10.1) mg/dl Total Bilirubin 0.8 (0.2-1) mg/dl AST 75 H (15-37) U/L ALT 28 (12-78) U/L Alkaline Phosphatase 287 H (45-117) U/L Total Protein 6.3 L (6.4-8.2) gm/dl Albumin 2.3 L (3.4-5.0) gm/dl Globulin 4.0 (2.5-4.0) gm/dl Albumin/Globulin Ratio 0.6 L (0.9-2) Lipase 111 (73-393) U/L Stl C. diff Tox B Gene (Neg) Stl C.difficile Tox A&B (Negative) 03/25/19 Range/Units 17:30 WBC (4.8-10.8) K/uL RBC (4.2-5.4) M/uL Hgb (12.0-16.0) g/dL Hct (37-47) % MCV (80-100) fL MCH (25-34) pg MCHC (32-36) g/dL RDW Std Deviation (36.4-46.3) fL RDW Coeff of Spenser (11.5-14.5) % Plt Count (130-400) K/uL MPV (7.4-10.4) fL Immature Gran % (Auto) % Neut % (Auto) % Lymph % (Auto) % [place] % (Auto) % Eos % (Auto) % Baso % (Auto) % Immature Gran # (Auto) (0.00-0.02) K/uL Neut # (Auto) (1.4-6.5) K/uL Lymph # (Auto) (1.2-3.4) K/uL [place] # (Auto) (0.11-0.59) K/uL Eos # (Auto) (0-0.5) K/uL Baso # (Auto) (0-0.2) K/uL Polychromasia Basophilic Stippling Echinocytes PT (9.0-12.0) Seconds INR (0.9-1.1) Sodium (136-145) mmol/L Potassium (3.5-5.1) mmol/L Chloride (98-107) mmol/L Carbon Dioxide (21-32) mmol/L Anion Gap (3-11) BUN (7-18) mg/dl Creatinine (0.6-1.2) mg/dl Est Cr Clr Drug Dosing ml/min Est GFR ( Amer) Est GFR (Non-Af Amer) BUN/Creatinine Ratio (10-20) Glucose (70-99) mg/dl Calcium (8.5-10.1) mg/dl Total Bilirubin (0.2-1) mg/dl AST (15-37) U/L ALT (12-78) U/L Alkaline Phosphatase (45-117) U/L Total Protein (6.4-8.2) gm/dl Albumin (3.4-5.0) gm/dl Globulin (2.5-4.0) gm/dl Albumin/Globulin Ratio (0.9-2) Lipase (73-393) U/L Stl C. diff Tox B Gene Positive Cdiff Gene H (Neg) Stl C.difficile Tox A&B Positive Cdiff Toxin A* (Negative) Imaging Data Radiologist's Impression: Radiology results as stated below per my review and the radiologist's interpretation: XR lumbar spine 2-3V CLINICAL HISTORY: 48 years-old Female presenting with lower back pain. TECHNIQUE: Frontal, lateral, and coned-down lateral views of the lumbar spine were obtained. COMPARISON: 02/18/2019. FINDINGS: No scoliosis. Normal lumbar lordosis. Vertebral bodies maintain normal height and alignment. Intervertebral disc heights preserved. No osseous neural foraminal narrowing. No compression deformity or subluxation. Atherosclerotic calcifications noted. Nonobstructive bowel gas pattern. IMPRESSION: No radiographic evidence of acute osseous injury or advanced degenerative change of the lumbar spine. Electronically signed by: Jeffrey Becerra M.D. 03/25/2019 4:50 PM XR chest 1V portable CLINICAL HISTORY: 48 years-old Female presenting with wbc 33k. TECHNIQUE: Portable upright AP view of the chest was obtained. COMPARISON: 03/05/2019. FINDINGS: Atherosclerosis of the aortic arch. Cardiac silhouette normal in size. Lungs and pleural spaces clear. Osseous structures normal. Upper abdomen normal. IMPRESSION: 1. No acute cardiopulmonary disease. Electronically signed by: Jeffrey Becerra M.D. 03/25/2019 5:54 PM Blood Pressure Blood Pressure Findings: Normal blood pressure MDM Narrative Patient is a 48-year-old female with alcoholic cirrhosis presents the ER for diarrhea which has been present for the past 2 weeks associated with lower back pain which has been present as well for the same time. Swelling of the legs which is new associated with some draining from the recent paracentesis. IV was established and blood work was obtained showed a leukocytosis of 32,000. No significant anemia. INR was remarkable at 1.4. BMP with a CO2 of 20 and a so dium of 130. Creatinine bumped to 2.8 up from 0.5. Bilirubin and LFTs were unremarkable. Lipase is normal. C. difficile was positive. Patient was given oral vancomycin. She was updated bedside. Do favor this is the likely cause of her increased leukocytosis which is been present since discharge and hospitalization. Patient has no new belly pain and nothing to suggest SBP. Patient family were updated bedside patient was admitted for further work-up. Of note systolic blood pressures were in the 80s and heart rates was in the low 100s which is consistent with where she has been before in the past. She denies any chest pain or shortness of breath. Impression & Plan C. difficile colitis, Leukocytosis, Ascites, Alcohol abuse Discharge Plan Visit Data Chief Complaint: Swelling/Edema to Extremity Stated Complaint: SWELLING OF FEET,LIVER PROBLEMS ED Provider: Miguel Ángel Doan Discharge Problem: C. difficile colitis, Leukocytosis, Ascites, Alcohol abuse Patient Disposition: Being Evaluated by Hospitalist Discharge Instructions Interventions: ED Discharge Assessment Last Done: 03/25/19 21:28 The scribe's documentation has been prepared under my direction and personally reviewed by me in its entirety. I confirm that the note above accurately reflects all work, treatment, procedures, and medical decision making performed by me.
[2019-03-25] MEDS: FOLIC ACID 1 MG TAB PO SCH (23:16)
[2019-03-25] MEDS: MULTIVITAMIN TAB PO SCH (23:16)
[2019-03-25] MEDS: SODIUM CHLORIDE 0.9% 1000ML 1,000 ML IV SCH (23:16)
[2019-03-25] MEDS: THIAMINE HCL 100 MG TAB PO SCH (23:17)
[2019-03-25] MEDS: CYANOCOBALAMIN 500 MCG TABLET (VITAMIN B-12) PO SCH (23:17)
[2019-03-25] MEDS: ESCITALOPRAM OXALATE 10 MG TAB PO SCH (23:17)
[2019-03-25] MEDS: RASPBERRY SYRUP 5 ML UDP PO SCH (23:33)
[2019-03-25] MEDS: VANCOMYCIN HCL 125 MG/2.5ML SOLN PO SCH (23:33)
[2019-03-26] MEDS ORDERED: RASPBERRY SYRUP 5 ML UDP PO SCH
[2019-03-26] MEDS: SODIUM CHLORIDE 0.9% 1000ML 1,000 ML IV SCH ×2 (05:38→16:29)
[2019-03-26] MEDS: VANCOMYCIN HCL 125 MG/2.5ML SOLN PO SCH ×4 (05:40→23:39)
[2019-03-26] MEDS: RASPBERRY SYRUP 5 ML UDP PO SCH ×4 (05:40→23:39)
[2019-03-26 07:02] LABS: Hematocrit (blood only) 28.6 % (37-47); Hemoglobin 9.9 g/dL (12.0-16.0); Mean Corpuscular Hgb Conc 34.6 g/dL (32-36); Mean Corpuscular Volume 91.4 fL (80-100); Mean Platelet Volume 9.6 fL (7.4-10.4); Platelet Count 292 K/uL (130-400); RDW Coefficient of Variation 15.3 % (11.5-14.5); RDW Standard Deviation 50.5 fL (36.4-46.3); Red Blood Count 3.13 M/uL (4.2-5.4); White Blood Count 25.04 K/uL (4.8-10.8)
[2019-03-26 07:22] LABS: INR 1.5 (0.9-1.1); Partial Thromboplastin Ratio 1.4; Partial Thromboplastin Time 37.8 Seconds (21.0-31.0); Prothrombin Time 14.6 Seconds (9.0-12.0)
[2019-03-26 07:47] LABS: Basophils # (auto) 0.05 K/uL (0-0.2); Basophils % (auto) 0.2 %; Echinocytes 2+; Eosinophils # (auto) 0.61 K/uL (0-0.5); Eosinophils % (auto) 2.4 %; Immature Granulocytes # (auto) 0.35 K/uL (0.00-0.02); Immature Granulocytes % (auto) 1.4 %; Lymphocytes # (auto) 3.52 K/uL (1.2-3.4); Lymphocytes % (auto) 14.1 %; Monocytes # (auto) 2.45 K/uL (0.11-0.59); Monocytes % (auto) 9.8 %; Neutrophils # (auto) 18.06 K/uL (1.4-6.5); Neutrophils % (auto) 72.1 %
[2019-03-26 07:57] LABS: Albumin Globulin Ratio 0.6 (0.9-2); Albumin Level 1.9 gm/dl (3.4-5.0); Bilirubin,Total 0.7 mg/dl (0.2-1); Calcium 7.1 mg/dl (8.5-10.1); Creatinine Clr Calc Pharmacy 16.5 ml/min; Est GFR (African American) 24.6; Est GFR (Non-African American) 21.3; Globulin 3.2 gm/dl (2.5-4.0); Potassium 4.1 mmol/L (3.5-5.1); Total Protein 5.1 gm/dl (6.4-8.2)
[2019-03-26] MEDS: THIAMINE HCL 100 MG TAB PO SCH (08:04)
[2019-03-26] MEDS: CYANOCOBALAMIN 500 MCG TABLET (VITAMIN B-12) PO SCH (08:04)
[2019-03-26] MEDS: ESCITALOPRAM OXALATE 10 MG TAB PO SCH (08:04)
[2019-03-26] MEDS: MULTIVITAMIN TAB PO SCH (08:05)
[2019-03-26] MEDS: FOLIC ACID 1 MG TAB PO SCH (08:05)
[2019-03-26] MEDS: LORazepam 1 MG/2 ML VIAL IV PRN (11:49)
--- NOTE | 2019-03-26 13:11 | Family Medicine Progress Note ---
Date of Service March 26, 2019 Assessment & Plan (1) C. 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 C. difficile colitis -Cont vancomycin 125 mg p.o. 4 times daily -improving ARF -likely 2/2 dehydration from multiple BM's -Cont rehydration with NSS at 80 -avoid NSAIDs for pain as below ETOH abuse/Ascites due to alcoholic cirrhosis -Has been undergoing periodic paracentesis -cont to take PO folic acid, MV, thiamine -For now hold spironolactone -Negative alcohol level on 03/20. 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 Cont monitor -Ativan 1 mg IV every 4 hours as needed Anxiety/Depression -cont Buspirone 5 mg p.o. daily and Escitalopram daily. Tobacco abuse -NicoDerm patch Chronic Low Back Pain -Given PMH, will avoid narcotics. Avoid NSAIDs given ARF -Heat pads, Voltaren gel -Can f/u oupt with DO for OMT FEN/GI: NSS at 80. Regular Diet DVT Prophylaxis: Stockings, GHISLAINE Full Code Dispo: Med Surg. D/C once ARF resolved Supervising Physician Co-Signing Physician Notes I personally examined the patient and verified all [place] points of history and exam, discussed case, and agree with decision making with Dr Mcdonnell. Feeling very tired. Back pain seems to be mostly positional. Diarrhea is slowing down. Vitals noted, in general she is fatigued but no distress. HEENT normocephalic atraumatic mucous members moist. Breathing unlabored no accessory muscle use good effort. Skin shows no rashes no pallor or icterus. Musculoskeletal shows right greater than left lumbar paraspinal musculature as well as to a degree her right piriformis musculature high tone/tender. C. difficile colitisappears to been fairly acute in onset, given that I discharged her only a few days ago and actually on the day of discharge her complaint was constipation requiring MiraLAX. That said she has been in the hospital frequently and while short dosing, has been on a degree of Rocephin pending paracentesis given her risk of SBP, and this combined with her stool study suggests that the C. difficile is real. P.o. vancomycin. Seems to be improving. Acute renal failurelikely relates to above, she had been discharged on Spironolactone but it is not a very potent diuretic, and its unclear if she is even started taking it or not. But certainly diarrhea with C. difficile could provoke volume losses enough to cause renal failure. Furthermore she is not showing any new worsening of her liver disease to raise concern of burgeoning hepatorenal syndrome. Continue IV fluids and follow. Cirrhosis with ascitescontinue to follow clinically. We did discuss that and rehydrating her for her acute renal failure, it is possible that she may have reaccumulation of ascites requiring paracentesis sooner than initially planned. She expresses understanding of this. Back painappears to be biomechanical, predominantly driven by her piriformis dysfunction and lumbar paraspinal hypertonicity. Currently she is not having much significant pain, Voltaren gel appears to be appropriate, should the pain continue to be a problem, or be chronic, outpatient OMT could be of benefit to her. Otherwise as above Subjective 48 y/o F found this AM in NAD. No acute overnight events. Reports of 4 loose BM's since admission per pt. Also complaints of ongoing LBP 05/20. Tolerating PO intake. No other issues voiding. No other acute concerns or complaints. Review of Systems Review of Systems: All systems reviewed & are unremarkable except as noted in HPI & below Physical Exam Constitutional: WD/WN, vitals as above + thin Eyes: PERRL, conjunctivae normal, anicteric sclerae ENMT: external ear and nose normal, oropharynx normal Respiratory: normal respiratory effort, lungs clear to auscultation Cardiovascular: RRR, no murmur, no edema Gastrointestinal (Abdomen): Inspection/Auscultation: + abdomen distended Percussion/Palpation: + tympanic to percussion and + fluid wave Skin: no rashes, warm and dry Psychiatric: A+Ox3, euthymic affect Results & Data Vital Signs (Past 12 Hours) Vital Signs Temp Pulse Resp BP Pulse Ox 03/26/19 07:06 36.7 C 86 14 91/58 L 98 Laboratory Results Laboratory Results - last 24 hr 03/25/19 03/25/19 03/25/19 16:18 16:18 16:18 WBC 32.82 H* RBC 3.70 L Hgb 11.9 L Hct 34.1 L MCV 92.2 MCH 32.2 MCHC 34.9 RDW Std Deviation 50.7 H RDW Coeff of Spenser 15.2 H Plt Count 371 MPV 9.9 Immature Gran % (Auto) 1.7 Neut % (Auto) 75.4 Lymph % (Auto) 11.5 [place] % (Auto) 10.1 Eos % (Auto) 1.0 Baso % (Auto) 0.3 Immature Gran # (Auto) 0.55 H Neut # (Auto) 24.78 H Lymph # (Auto) 3.77 H [place] # (Auto) 3.31 H Eos # (Auto) 0.32 Baso # (Auto) 0.09 Polychromasia 1+ Basophilic Stippling Occasional Echinocytes 1+ PT 13.6 H INR 1.4 H APTT PTT Ratio Sodium 130 L Potassium 4.8 Chloride 97 L Carbon Dioxide 20 L Anion Gap 13.0 H BUN 21 H Creatinine 2.84 H Est Cr Clr Drug Dosing 14.9 Est GFR ( Amer) 21.8 Est GFR (Non-Af Amer) 18.8 BUN/Creatinine Ratio 7.3 L Glucose 98 Calcium 8.3 L Total Bilirubin 0.8 AST 75 H ALT 28 Alkaline Phosphatase 287 H Total Protein 6.3 L Albumin 2.3 L Globulin 4.0 Albumin/Globulin Ratio 0.6 L Lipase 111 Stl C. diff Tox B Gene Stl C.difficile Tox A&B 03/25/19 03/26/19 03/26/19 17:30 06:40 06:40 WBC 25.04 H RBC 3.13 L Hgb 9.9 L Hct 28.6 L MCV 91.4 MCH 31.6 MCHC 34.6 RDW Std Deviation 50.5 H RDW Coeff of Spenser 15.3 H Plt Count 292 MPV 9.6 Immature Gran % (Auto) 1.4 Neut % (Auto) 72.1 Lymph % (Auto) 14.1 [place] % (Auto) 9.8 Eos % (Auto) 2.4 Baso % (Auto) 0.2 Immature Gran # (Auto) 0.35 H Neut # (Auto) 18.06 H Lymph # (Auto) 3.52 H [place] # (Auto) 2.45 H Eos # (Auto) 0.61 H Baso # (Auto) 0.05 Polychromasia Basophilic Stippling Echinocytes 2+ PT 14.6 H INR 1.5 H APTT 37.8 H PTT Ratio 1.4 Sodium Potassium Chloride Carbon Dioxide Anion Gap BUN Creatinine Est Cr Clr Drug Dosing Est GFR ( Amer) Est GFR (Non-Af Amer) BUN/Creatinine Ratio Glucose Calcium Total Bilirubin AST ALT Alkaline Phosphatase Total Protein Albumin Globulin Albumin/Globulin Ratio Lipase Stl C. diff Tox B Gene Positive Cdiff Gene H Stl C.difficile Tox A&B Positive Cdiff Toxin A* 03/26/19 06:40 WBC RBC Hgb Hct MCV MCH MCHC RDW Std Deviation RDW Coeff of Spenser Plt Count MPV Immature Gran % (Auto) Neut % (Auto) Lymph % (Auto) [place] % (Auto) Eos % (Auto) Baso % (Auto) Immature Gran # (Auto) Neut # (Auto) Lymph # (Auto) [place] # (Auto) Eos # (Auto) Baso # (Auto) Polychromasia Basophilic Stippling Echinocytes PT INR APTT PTT Ratio Sodium 131 L Potassium 4.1 Chloride 104 Carbon Dioxide 18 L Anion Gap 9.0 BUN 23 H Creatinine 2.57 H Est Cr Clr Drug Dosing 16.5 Est GFR ( Amer) 24.6 Est GFR (Non-Af Amer) 21.3 BUN/Creatinine Ratio 9.0 L Glucose 86 Calcium 7.1 L Total Bilirubin 0.7 AST 53 H ALT 22 Alkaline Phosphatase 226 H Total Protein 5.1 L Albumin 1.9 L Globulin 3.2 Albumin/Globulin Ratio 0.6 L Lipase Stl C. diff Tox B Gene Stl C.difficile Tox A&B Medications Administered Current Inpatient Medications Albuterol (Ventolin 0.083% 2.5mg/3ml) 2.5 mg INH Q4H PRN PRN Reason: Shortness Of Breath Or Wheezing Stop: 04/24/19 22:27 Buspirone HCl (Buspar) 5 mg PO DAILY [facility] Stop: 04/25/19 08:59 Last Admin: 03/26/19 08:05 Dose: 5 mg Documented by: Cyanocobalamin (Vitamin B-12) 1,000 mcg PO DAILY CHEN Stop: 04/24/19 22:27 Last Admin: 03/26/19 08:04 Dose: 1,000 mcg Documented by: Diclofenac Sodium (Voltaren 1% Top) 1 appln EXT TID [facility] Stop: 04/25/19 13:59 Escitalopram Oxalate (Lexapro) 5 mg PO DAILY [facility] Stop: 04/24/19 22:44 Last Admin: 03/26/19 08:04 Dose: 5 mg Documented by: Folic Acid (Folvite) 1 mg PO DAILY CHEN Stop: 04/24/19 22:27 Last Admin: 03/26/19 08:05 Dose: 1 mg Documented by: Sodium Chloride (Nss 1000ml) 1,000 mls @ 80 mls/hr IV .[id number] CHEN Stop: 04/24/19 22:27 Last Admin: 03/26/19 05:38 Dose: 80 mls/hr Documented by: Lorazepam (Ativan) 1 mg in 2 mls @ 2 mls/min IV Q4H PRN PRN Reason: Anxiety Stop: 04/25/19 04:41 Last Admin: 03/26/19 11:49 Dose: 2 mls/min Documented by: Multivitamins (Multivitamin Tab) 1 tab PO DAILY CHEN Stop: 04/24/19 22:27 Last Admin: 03/26/19 08:05 Dose: 1 tab Documented by: Ondansetron HCl (Zofran) 4 mg IV Q6H PRN PRN Reason: NAUSEA/VOMITING Stop: 04/24/19 22:27 Raspberry (Raspberry) 5 ml PO Q6 [facility] Stop: 04/09/19 00:00 Last Admin: 03/26/19 11:49 Dose: 5 ml Documented by: Thiamine HCl (Vitamin B-1) 100 mg PO DAILY [facility] Stop: 04/24/19 22:27 Last Admin: 03/26/19 08:04 Dose: 100 mg Documented by: Vancomycin HCl (Vancomycin Hcl) 125 mg PO Q6 [facility] Stop: 04/05/19 00:00 Last Admin: 03/26/19 11:48 Dose: 125 mg Documented by: PG Care Time/CCT Total # of Minutes Spent Total Time Spent with Patient: Total time spent is greater than 50% in coordination of care (as documented) at patient's floor/unit and/or counseling patient: Resident Activity Tracking Resident Involvement: Resident Care Provided Care Provided: Adult Hospital Medicine
[2019-03-26] MEDS: DICLOFENAC SOD 1% GEL 100 GM TUBE EXT SCH ×2 (14:33→21:07)
[2019-03-27] MEDS: LORazepam 1 MG/2 ML VIAL IV PRN (00:06)
[2019-03-27] MEDS: SODIUM CHLORIDE 0.9% 1000ML 1,000 ML IV SCH ×3 (03:16→23:46)
[2019-03-27] MEDS: RASPBERRY SYRUP 5 ML UDP PO SCH ×4 (05:32→23:44)
[2019-03-27] MEDS: VANCOMYCIN HCL 125 MG/2.5ML SOLN PO SCH ×4 (05:32→23:44)
[2019-03-27 05:44] LABS: Appearance Urine Cloudy (Clear); Bacteria Urine Automated Negative (Negative); Bilirubin Urine Negative (Negative); Blood Urine Negative (Negative); Color Urine Dark Yellow; Epithelial Cell Urine Auto >30 /lpf (0-5); Glucose Urine UA Negative (Negative); Ketones Urine Trace (Negative); Leukocyte Esterase Urine Negative (Negative); Nitrite Urine Negative (Negative); Protein Urine 1+ (Negative); RBC Urine Automated 0-4 /hpf (0-4); Specific Gravity Urine 1.018 (1.000-1.030); Urobilinogen Urine Negative (Negative)
[2019-03-27 05:56] LABS: Renal Epithelial Cells Urine 0-5 /lpf (0-5)
[2019-03-27 07:04] LABS: Hematocrit (blood only) 28.4 % (37-47); Hemoglobin 9.8 g/dL (12.0-16.0); Mean Corpuscular Hgb Conc 34.5 g/dL (32-36); Mean Corpuscular Volume 91.9 fL (80-100); Mean Platelet Volume 9.5 fL (7.4-10.4); Platelet Count 284 K/uL (130-400); RDW Coefficient of Variation 15.3 % (11.5-14.5); RDW Standard Deviation 51.5 fL (36.4-46.3); Red Blood Count 3.09 M/uL (4.2-5.4); White Blood Count 19.89 K/uL (4.8-10.8)
[2019-03-27 07:33] LABS: BUN Creatinine Ratio 12.8 (10-20); Creatinine Clr Calc Pharmacy 19.4 ml/min; Est GFR (African American) 30.1; Est GFR (Non-African American) 25.9; Magnesium 1.6 mg/dl (1.8-2.4); Potassium 3.6 mmol/L (3.5-5.1)
--- NOTE | 2019-03-27 07:49 | Family Medicine Progress Note ---
Date of Service March 27, 2019 Assessment & Plan (1) C. 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 C. difficile colitis -improving -Cont vancomycin 125 mg p.o. 4 times daily ARF -improving, still not back to baseline however -likely 2/2 dehydration from multiple BM's -Cont rehydration with NSS at 80 -avoid NSAIDs for pain as below ETOH abuse/Ascites due to alcoholic cirrhosis -Pt states she is ok with outpt alcohol rehab but will NOT do inpt rehab. -Will work with case management to attempt to set something up for her. -Has been undergoing periodic paracentesis -cont to take PO folic acid, MV, thiamine -For now hold spironolactone -Negative alcohol level on 03/20. 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 Cont monitor -Ativan 1 mg IV every 4 hours as needed Anxiety/Depression -cont Buspirone 5 mg p.o. daily and Escitalopram daily. Tobacco abuse -NicoDerm patch Chronic Low Back Pain -Given PMH, will avoid narcotics. Avoid NSAIDs given ARF -Heat pads, Voltaren gel -Can f/u oupt with DO for OMT FEN/GI: NSS at 80. Regular Diet DVT Prophylaxis: Stockings, GHISLAINE Full Code Dispo: Med Surg. D/C once ARF resolved Supervising Physician Co-Signing Physician Notes Attending attestation Pt seen and examined in concert with Dr. Barnett. In agreement with the documented findings as noted in the resident documentation with any exceptions or additions as noted here. Pt resting in bed but "feel like shit" re: significant abdominal distention and discomfort. BM has decreased to approximately 3 episodes today, though still loose and foul smelling. Persistent drainage from paracentesis site. On examination, significant abd distention with ascites and generalized TTP. b/l LE swelling to the midshin 2+ C. diff colitis - improving on PO vancomycin, though still with appreciable output and discomfort. Continue abx and re-assess in AM Acute renal failure - improved to 2.18 w/ IVF, continue Cirrhosis w/ ascites in the setting of binge drinking/alcohol use - Will monitor clinically. Pt reports intent to continue drinking at rate, that she previously 'aced' inpatient rehabilitation and does not want to go back because she will miss her young grandchildren, and states that she understands the severity of her illness. When asked where in the process she is, she said 'one day at a time'. We discussed at length the impact of continued alcohol use and binge drinking on her condition including limitation of lifespan and increased risks of infection with cirrhosis and ascites and risk of rapid progression and destabilization, specifically that at her current rate of destabilization, she would likely suffer significant issues in the next 1-5 years which may result in . After this discussion, she is tearfully receptive to discussing outpatient rehab and support with case management. Else see resident documentation as noted. Subjective Ms. Nunn was adamant this AM that she was not willing to do inpatient alcohol rehab but would consider outpt therapy. States that she had no diarrheal episodes overnight, but has had 3 episdoes today. Her back pain is also improving. Denies JAMES, SOB, chest pain, palps, N/V. Has swelling in extremities bilaterally, particularly on the right. Review of Systems Review of Systems: All systems reviewed & are unremarkable except as noted in HPI & below Physical Exam Physical Exam: General: Alert, orientedx3. HEENT: NC/AT, PERRLA, EOMI, oropharynx moist. Chest: Nontender to palpation. CV: RRR, Normal s1, s2. Resp: Breath sounds clear bilaterally, no increased effort of breathing. No crackles/rhonchi/rales. Abdomen: Firm, tender, distended. Bandage covering draining fluid on right abdomen. Extremities: 1+ pitting edema on left lower extremity and 2+ on right lower extremity. Results & Data Vital Signs (Past 12 Hours) Vital Signs Temp Pulse Resp BP Pulse Ox 03/26/19 23:27 37.1 C 96 H 16 103/67 99 Laboratory Results Laboratory Results - last 24 hr 03/27/19 03/27/19 03/27/19 05:00 06:39 06:39 WBC 19.89 H RBC 3.09 L Hgb 9.8 L Hct 28.4 L MCV 91.9 MCH 31.7 MCHC 34.5 RDW Std Deviation 51.5 H RDW Coeff of Spenser 15.3 H Plt Count 284 MPV 9.5 Neutrophils % (Manual) 64.4 Lymphocytes % (Manual) 22.6 Monocytes % (Manual) 5.2 Eosinophils % (Manual) 7.8 Neutrophils # (Manual) 12.81 H Total Absolute Neuts 12.81 H Lymphocytes # (Manual) 4.50 H Total Abs Lymphocytes 4.50 H Monocytes # (Manual) 1.03 H Eosinophils # (Manual) 1.55 H Smudge Cells Present Giant Platelets 1+ Echinocytes 1+ Sodium 134 L Potassium 3.6 Chloride 109 H Carbon Dioxide 16 L Anion Gap 9.0 BUN 28 H Creatinine 2.18 H D Est Cr Clr Drug Dosing 19.4 Est GFR ( Amer) 30.1 Est GFR (Non-Af Amer) 25.9 BUN/Creatinine Ratio 12.8 Glucose 85 Calcium 7.0 L Magnesium 1.6 L Urine Color Dark Yellow Urine Appearance Cloudy A Urine pH 5.0 Ur Specific [place] 1.018 Urine Protein 1+ H Urine Glucose (UA) Negative Urine Ketones Trace H Urine Blood Negative Urine Nitrite Negative Urine Bilirubin Negative Urine Urobilinogen Negative Ur Leukocyte Esterase Negative Urine WBC (Auto) 10-30 H Urine RBC (Auto) 0-4 U Hyaline Cast (Auto) 1-5 U Epithel Cells (Auto) >30 H Urine Bacteria (Auto) Negative Ur Renal Epithelial Cell 0-5 Granular Casts 1-5 H Medications Administered Home Medications albuterol sulfate 2.5 mg/3 mL (0.083 %) solution for nebulization 2.5 mg INHALATION Q4H PRN #1 ml 03/15/19 [History Confirmed 03/25/19] folic acid 1 mg tablet 1 mg PO DAILY #30 tab 03/15/19 [Rx Confirmed 03/25/19] multivitamin tablet 1 tab PO DAILY 03/15/19 [History Confirmed 03/25/19] mecobalamin (vitamin B12) 1,000 mcg disintegrating tablet,sublingual 1,000 mcg SL DAILY #30 tab 03/16/19 [Rx Confirmed 03/25/19] thiamine HCl (vitamin B1) 100 mg tablet 100 mg PO DAILY #30 tab 03/16/19 [Rx Confirmed 03/25/19] buspirone 5 mg PO DAILY #30 tab 03/22/19 [Rx Confirmed 03/25/19] escitalopram oxalate 5 mg PO DAILY #30 tab 03/22/19 [Rx Confirmed 03/25/19] spironolactone 50 mg PO QAM #60 tab 03/22/19 [Rx Confirmed 03/25/19] Active Medications Albuterol (Ventolin 0.083% 2.5mg/3ml) 2.5 mg INH Q4H PRN PRN Reason: Shortness Of Breath Or Wheezing Stop: 04/24/19 22:27 Buspirone HCl (Buspar) 5 mg PO DAILY [facility] Stop: 04/25/19 08:59 Last Admin: 03/27/19 08:43 Dose: 5 mg Documented by: Cyanocobalamin (Vitamin B-12) 1,000 mcg PO DAILY [facility] Stop: 04/24/19 22:27 Last Admin: 03/27/19 08:44 Dose: 1,000 mcg Documented by: Diclofenac Sodium (Voltaren 1% Top) 1 appln EXT TID [facility] Stop: 04/25/19 13:59 Last Admin: 03/27/19 13:46 Dose: 1 appln Documented by: Escitalopram Oxalate (Lexapro) 5 mg PO DAILY [facility] Stop: 04/24/19 22:44 Last Admin: 03/27/19 08:44 Dose: 5 mg Documented by: Folic Acid (Folvite) 1 mg PO DAILY [facility] Stop: 04/24/19 22:27 Last Admin: 03/27/19 08:44 Dose: 1 mg Documented by: Sodium Chloride (Nss 1000ml) 1,000 mls @ 100 mls/hr IV .Q10H [facility] Stop: 04/24/19 22:27 Last Admin: 03/27/19 13:45 Dose: 80 mls/hr Documented by: Lorazepam (Ativan) 1 mg in 2 mls @ 2 mls/min IV Q4H PRN PRN Reason: Anxiety Stop: 04/25/19 04:41 Last Admin: 03/27/19 00:06 Dose: 2 mls/min Documented by: Magnesium Oxide (Mag-Ox) 400 mg PO TODAY@2100 ONE Stop: 03/27/19 21:01 Miscellaneous (Remove Nicoderm Patch) 1 ea N/A HS [facility] Stop: 04/25/19 20:59 Last Admin: 03/26/19 21:07 Dose: Not Given Documented by: Multivitamins (Multivitamin Tab) 1 tab PO DAILY [facility] Stop: 04/24/19 22:27 Last Admin: 03/27/19 08:44 Dose: 1 tab Documented by: Nicotine (Nicoderm Cq) 14 mg TD QAM [facility] Stop: 04/26/19 08:59 Last Admin: 03/27/19 08:45 Dose: Not Given Documented by: Ondansetron HCl (Zofran) 4 mg IV Q6H PRN PRN Reason: NAUSEA/VOMITING Stop: 04/24/19 22:27 Raspberry (Raspberry) 5 ml PO Q6 [facility] Stop: 04/09/19 00:00 Last Admin: 03/27/19 12:00 Dose: 5 ml Documented by: Thiamine HCl (Vitamin B-1) 100 mg PO DAILY [facility] Stop: 04/24/19 22:27 Last Admin: 03/27/19 08:45 Dose: 100 mg Documented by: Vancomycin HCl (Vancomycin Hcl) 125 mg PO Q6 [facility] Stop: 04/05/19 00:00 Last Admin: 03/27/19 12:00 Dose: 125 mg Documented by: Resident Activity Tracking Resident Involvement: Resident Care Provided Care Provided: Adult Hospital Medicine
[2019-03-27 08:28] LABS: Echinocytes 1+; Eosinophils # (manual) 1.55 K/uL (0-0.5); Eosinophils % (manual) 7.8 %; Giant Platelets 1+; Lymphocytes % (manual) 22.6 %; Monocytes # (manual) 1.03 K/uL (0.11-0.59); Monocytes % (manual) 5.2 %; Neutrophils % (manual) 64.4 %; Smudge Cells Present
[2019-03-27] MEDS: FOLIC ACID 1 MG TAB PO SCH (08:44)
[2019-03-27] MEDS: MULTIVITAMIN TAB PO SCH (08:44)
[2019-03-27] MEDS: ESCITALOPRAM OXALATE 10 MG TAB PO SCH (08:44)
[2019-03-27] MEDS: CYANOCOBALAMIN 500 MCG TABLET (VITAMIN B-12) PO SCH (08:44)
[2019-03-27] MEDS: DICLOFENAC SOD 1% GEL 100 GM TUBE EXT SCH ×3 (08:45→20:07)
[2019-03-27] MEDS: THIAMINE HCL 100 MG TAB PO SCH (08:45)
[2019-03-27] MEDS: NICOTINE 14 MG/24 HR PATCH TD SCH (08:45)
[2019-03-27] MEDS ORDERED: MAGNESIUM OXIDE 400 MG TAB PO ONE ×2 (09:29→21:00)
--- NOTE | 2019-03-27 19:59 | Ultrasound Report ---
US venous doppler LE BI HISTORY: Pain. Edema. lower extremity swelling R>L COMPARISON STUDY: None. FINDINGS: There is normal compressibility, flow, and augmentation within the bilateral lower extremit y deep venous systems. IMPRESSION: No DVT within the right or left lower extremity. The above report was generated using voice recognition software. It may contain grammatical, syntax or spelling errors. Electronically signed by: Kang Benitez M.D. 03/27/2019 7:58 PM
[2019-03-28] MEDS: RASPBERRY SYRUP 5 ML UDP PO SCH ×4 (05:53→23:40)
[2019-03-28] MEDS: VANCOMYCIN HCL 125 MG/2.5ML SOLN PO SCH ×4 (05:53→23:43)
[2019-03-28 08:06] LABS: Basophils # (auto) 0.08 K/uL (0-0.2); Basophils % (auto) 0.5 %; Eosinophils # (auto) 0.36 K/uL (0-0.5); Eosinophils % (auto) 2.1 %; Hematocrit (blood only) 27.2 % (37-47); Hemoglobin 9.2 g/dL (12.0-16.0); Immature Granulocytes # (auto) 0.34 K/uL (0.00-0.02); Immature Granulocytes % (auto) 1.9 %; Lymphocytes # (auto) 3.78 K/uL (1.2-3.4); Lymphocytes % (auto) 21.6 %; Mean Corpuscular Hgb Conc 33.8 g/dL (32-36); Mean Corpuscular Volume 92.2 fL (80-100); Mean Platelet Volume 9.8 fL (7.4-10.4); Monocytes # (auto) 2.17 K/uL (0.11-0.59); Monocytes % (auto) 12.4 %; Neutrophils # (auto) 10.76 K/uL (1.4-6.5); Neutrophils % (auto) 61.5 %; Platelet Count 299 K/uL (130-400); RDW Coefficient of Variation 15.4 % (11.5-14.5); RDW Standard Deviation 51.9 fL (36.4-46.3); Red Blood Count 2.95 M/uL (4.2-5.4); White Blood Count 17.49 K/uL (4.8-10.8)
[2019-03-28 08:23] LABS: Albumin Level 1.8 gm/dl (3.4-5.0); BUN Creatinine Ratio 21.4 (10-20); Calcium 7.8 mg/dl (8.5-10.1); Creatinine Clr Calc Pharmacy 32.1 ml/min; Est GFR (African American) 55.2; Est GFR (Non-African American) 47.6; Potassium 3.4 mmol/L (3.5-5.1)
[2019-03-28 08:26] LABS: Albumin Globulin Ratio 0.5 (0.9-2); Bilirubin,Total 0.6 mg/dl (0.2-1); Globulin 3.4 gm/dl (2.5-4.0); Magnesium 1.8 mg/dl (1.8-2.4); Phosphorus 4.2 mg/dl (2.5-4.9); Total Protein 5.2 gm/dl (6.4-8.2)
[2019-03-28] MEDS: FOLIC ACID 1 MG TAB PO SCH (09:04)
[2019-03-28] MEDS: MULTIVITAMIN TAB PO SCH (09:05)
[2019-03-28] MEDS: THIAMINE HCL 100 MG TAB PO SCH (09:05)
[2019-03-28] MEDS: ESCITALOPRAM OXALATE 10 MG TAB PO SCH (09:05)
[2019-03-28] MEDS: CYANOCOBALAMIN 500 MCG TABLET (VITAMIN B-12) PO SCH (09:05)
[2019-03-28] MEDS: NICOTINE 14 MG/24 HR PATCH TD SCH (09:06)
[2019-03-28] MEDS: DICLOFENAC SOD 1% GEL 100 GM TUBE EXT SCH ×3 (09:06→19:37)
[2019-03-28] MEDS: ONDANSETRON INJ 2 MG/ML 2 ML VIAL IV PRN (09:06)
[2019-03-28] MEDS ORDERED: POTASSIUM CHLORIDE 20 MEQ TABCR PO STA (09:28)
--- NOTE | 2019-03-28 09:42 | Family Medicine Progress Note ---
Date of Service March 28, 2019 Assessment & Plan (1) C. 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 C. difficile colitis -improving -Cont vancomycin 125 mg p.o. 4 times daily ARF -improving, still not back to baseline however -likely 2/2 dehydration from multiple BM's -Cont rehydration with NSS at 80 -avoid NSAIDs for pain as below ETOH abuse/Ascites due to alcoholic cirrhosis -Pt states she is ok with outpt alcohol rehab but will NOT do inpt rehab. -Seen by case management and given outpatient resources. -Has been undergoing periodic paracentesis -cont to take PO folic acid, MV, thiamine -For now hold spironolactone -Negative alcohol level on 03/20. Admits to use day [employer] -No s/s of withdrawal thus far. Cont monitor -Ativan 1 mg IV every 4 hours as needed Anxiety/Depression -cont Buspirone 5 mg p.o. daily and Escitalopram daily. Tobacco abuse -NicoDerm patch Chronic Low Back Pain -Given PMH, will avoid narcotics. Avoid NSAIDs given ARF -Heat pads, Voltaren gel. -Added lidocaine patch 03/28 -Can f/u oupt with DO for OMT FEN/GI: NSS at 80. Regular Diet DVT Prophylaxis: Stockings, GHISLAINE Full Code Dispo: Med Surg. D/C once ARF resolved Supervising Physician Co-Signing Physician Notes Attending attestation Pt seen and examined in concert with Dr. Barnett. In agreement with the documented findings as noted in the resident documentation with any exceptions or additions as noted here. Still reports "feel like shit" - abdominal distention is stable. 5x BM since last night though more formed, less foul. On examination, significant abd distention with ascites and generalized TTP. b/l LE swelling to the midshin 2+ C. diff colitis - continued gradual improvement w/ vancomycin. Continue abx and re-assess in AM Acute renal failure - improved to 1.3 - decrease IVF and encourage PO intake Cirrhosis w/ ascites in the setting of binge drinking/alcohol use - Working with case management re: outpatient rehabilitation Else see resident documentation as noted. Subjective Judi states she had about 5 bowel movements today. However, they are more formed. Denies JAMES, N/V, chest pain, SOB, palps. Review of Systems Review of Systems: All systems reviewed & are unremarkable except as noted in HPI & below Physical Exam Physical Exam: General: Alert, orientedx3. HEENT: NC/AT, PERRLA, EOMI, oropharynx moist. Chest: Nontender to palpation. CV: RRR, Normal s1, s2. Resp: Breath sounds clear bilaterally, no increased effort of breathing. Abdomen: Firm, tender, distended. Extremities: 1+ pitting edema on left lower extremity and 2+ on right lower extremity. Results & Data Vital Signs (Past 12 Hours) Vital Signs Temp Pulse Resp BP Pulse Ox 03/28/19 08:00 36.8 C 87 18 99/63 L 98 03/27/19 23:20 36.8 C 94 H 18 97/64 L 98 Laboratory Results Laboratory Results - last 24 hr 03/28/19 03/28/19 06:46 06:46 WBC 17.49 H RBC 2.95 L Hgb 9.2 L Hct 27.2 L MCV 92.2 MCH 31.2 MCHC 33.8 RDW Std Deviation 51.9 H RDW Coeff of Spenser 15.4 H Plt Count 299 MPV 9.8 Immature Gran % (Auto) 1.9 Neut % (Auto) 61.5 Lymph % (Auto) 21.6 [place] % (Auto) 12.4 Eos % (Auto) 2.1 Baso % (Auto) 0.5 Immature Gran # (Auto) 0.34 H Neut # (Auto) 10.76 H Lymph # (Auto) 3.78 H [place] # (Auto) 2.17 H Eos # (Auto) 0.36 Baso # (Auto) 0.08 Sodium 140 Potassium 3.4 L Chloride 114 H Carbon Dioxide 15 L Anion Gap 12.0 H BUN 28 H Creatinine 1.32 H D Est Cr Clr Drug Dosing 32.1 Est GFR ( Amer) 55.2 Est GFR (Non-Af Amer) 47.6 BUN/Creatinine Ratio 21.4 H Glucose 90 Calcium 7.8 L Phosphorus 4.2 Magnesium 1.8 Total Bilirubin 0.6 AST 70 H ALT 22 Alkaline Phosphatase 219 H Total Protein 5.2 L Albumin 1.8 L Globulin 3.4 Albumin/Globulin Ratio 0.5 L Medications Administered Home Medications albuterol sulfate 2.5 mg/3 mL (0.083 %) solution for nebulization 2.5 mg INHALATION Q4H PRN #1 ml 03/15/19 [History Confirmed 03/25/19] folic acid 1 mg tablet 1 mg PO DAILY #30 tab 03/15/19 [Rx Confirmed 03/25/19] multivitamin tablet 1 tab PO DAILY 03/15/19 [History Confirmed 03/25/19] mecobalamin (vitamin B12) 1,000 mcg disintegrating tablet,sublingual 1,000 mcg SL DAILY #30 tab 03/16/19 [Rx Confirmed 03/25/19] thiamine HCl (vitamin B1) 100 mg tablet 100 mg PO DAILY #30 tab 03/16/19 [Rx Confirmed 03/25/19] buspirone 5 mg PO DAILY #30 tab 03/22/19 [Rx Confirmed 03/25/19] escitalopram oxalate 5 mg PO DAILY #30 tab 03/22/19 [Rx Confirmed 03/25/19] spironolactone 50 mg PO QAM #60 tab 03/22/19 [Rx Confirmed 03/25/19] Active Medications Albuterol (Ventolin 0.083% 2.5mg/3ml) 2.5 mg INH Q4H PRN PRN Reason: Shortness Of Breath Or Wheezing Stop: 04/24/19 22:27 Buspirone HCl (Buspar) 5 mg PO DAILY [facility] Stop: 04/25/19 08:59 Last Admin: 03/28/19 09:04 Dose: 5 mg Documented by: Cyanocobalamin (Vitamin B-12) 1,000 mcg PO DAILY [facility] Stop: 04/24/19 22:27 Last Admin: 03/28/19 09:05 Dose: 1,000 mcg Documented by: Diclofenac Sodium (Voltaren 1% Top) 1 appln EXT TID [facility] Stop: 04/25/19 13:59 Last Admin: 03/28/19 12:23 Dose: 1 appln Documented by: Escitalopram Oxalate (Lexapro) 5 mg PO DAILY [facility] Stop: 04/24/19 22:44 Last Admin: 03/28/19 09:05 Dose: 5 mg Documented by: Folic Acid (Folvite) 1 mg PO DAILY [facility] Stop: 04/24/19 22:27 Last Admin: 03/28/19 09:04 Dose: 1 mg Documented by: Sodium Chloride (Nss 1000ml) 1,000 mls @ 100 mls/hr IV .Q10H [facility] Stop: 04/24/19 22:27 Last Admin: 03/28/19 12:22 Dose: 80 mls/hr Documented by: Lorazepam (Ativan) 1 mg in 2 mls @ 2 mls/min IV Q4H PRN PRN Reason: Anxiety Stop: 04/25/19 04:41 Last Admin: 03/27/19 00:06 Dose: 2 mls/min Documented by: Miscellaneous (Remove Nicoderm Patch) 1 ea N/A HS [facility] Stop: 04/25/19 20:59 Last Admin: 03/27/19 20:09 Dose: Not Given Documented by: Multivitamins (Multivitamin Tab) 1 tab PO DAILY [facility] Stop: 04/24/19 22:27 Last Admin: 03/28/19 09:05 Dose: 1 tab Documented by: Nicotine (Nicoderm Cq) 14 mg TD QAM [facility] Stop: 04/26/19 08:59 Last Admin: 03/28/19 09:06 Dose: Not Given Documented by: Ondansetron HCl (Zofran) 4 mg IV Q6H PRN PRN Reason: NAUSEA/VOMITING Stop: 04/24/19 22:27 Last Admin: 03/28/19 09:06 Dose: 4 mg Documented by: Raspberry (Raspberry) 5 ml PO Q6 [facility] Stop: 04/09/19 00:00 Last Admin: 03/28/19 12:22 Dose: 5 ml Documented by: Thiamine HCl (Vitamin B-1) 100 mg PO DAILY [facility] Stop: 04/24/19 22:27 Last Admin: 03/28/19 09:05 Dose: 100 mg Documented by: Vancomycin HCl (Vancomycin Hcl) 125 mg PO Q6 [facility] Stop: 04/05/19 00:00 Last Admin: 03/28/19 12:22 Dose: 125 mg Documented by: PG Care Time/CCT Total # of Minutes Spent Total Time Spent with Patient: Total time spent is greater than 50% in coordination of care (as documented) at patient's floor/unit and/or counseling patient: Resident Activity Tracking Resident Involvement: Resident Care Provided Care Provided: Adult Hospital Medicine
[2019-03-28] MEDS: SODIUM CHLORIDE 0.9% 1000ML 1,000 ML IV SCH ×2 (12:22→19:37)
[2019-03-28] MEDS: LORazepam 1 MG/2 ML VIAL IV PRN (17:54)
[2019-03-28] MEDS: LIDOCAINE 5% 1 PATCH TD SCH (19:36)
[2019-03-29] MEDS: SODIUM CHLORIDE 0.9% 1000ML 1,000 ML IV SCH ×2 (04:03→23:18)
[2019-03-29] MEDS: RASPBERRY SYRUP 5 ML UDP PO SCH ×4 (05:45→23:19)
[2019-03-29] MEDS: VANCOMYCIN HCL 125 MG/2.5ML SOLN PO SCH ×4 (05:45→23:19)
[2019-03-29 05:55] LABS: Basophils % (auto) 0.7 %; Eosinophils # (auto) 0.28 K/uL (0-0.5); Eosinophils % (auto) 1.8 %; Hematocrit (blood only) 29.4 % (37-47); Hemoglobin 9.9 g/dL (12.0-16.0); Immature Granulocytes # (auto) 0.36 K/uL (0.00-0.02); Immature Granulocytes % (auto) 2.4 %; Lymphocytes # (auto) 3.61 K/uL (1.2-3.4); Lymphocytes % (auto) 23.7 %; Mean Corpuscular Hgb Conc 33.7 g/dL (32-36); Mean Corpuscular Volume 92.2 fL (80-100); Mean Platelet Volume 9.4 fL (7.4-10.4); Monocytes # (auto) 1.86 K/uL (0.11-0.59); Monocytes % (auto) 12.2 %; Neutrophils # (auto) 9.05 K/uL (1.4-6.5); Neutrophils % (auto) 59.2 %; Platelet Count 291 K/uL (130-400); RDW Coefficient of Variation 15.4 % (11.5-14.5); RDW Standard Deviation 52.1 fL (36.4-46.3); Red Blood Count 3.19 M/uL (4.2-5.4); White Blood Count 15.26 K/uL (4.8-10.8)
[2019-03-29 06:38] LABS: Albumin Level 1.8 gm/dl (3.4-5.0); BUN Creatinine Ratio 27.1 (10-20); Calcium 7.7 mg/dl (8.5-10.1); Creatinine Clr Calc Pharmacy 42.4 ml/min; Est GFR (African American) 77.2; Est GFR (Non-African American) 66.6; Magnesium 1.6 mg/dl (1.8-2.4); Potassium 3.5 mmol/L (3.5-5.1)
[2019-03-29 06:42] LABS: Albumin Globulin Ratio 0.5 (0.9-2); Bilirubin,Total 0.7 mg/dl (0.2-1); Globulin 3.6 gm/dl (2.5-4.0); Total Protein 5.4 gm/dl (6.4-8.2)
[2019-03-29] MEDS: FOLIC ACID 1 MG TAB PO SCH (08:26)
[2019-03-29] MEDS: ESCITALOPRAM OXALATE 10 MG TAB PO SCH (08:26)
[2019-03-29] MEDS: DICLOFENAC SOD 1% GEL 100 GM TUBE EXT SCH ×3 (08:27→20:44)
[2019-03-29] MEDS: MULTIVITAMIN TAB PO SCH (08:27)
[2019-03-29] MEDS: LIDOCAINE 5% 1 PATCH TD SCH (08:27)
[2019-03-29] MEDS: CYANOCOBALAMIN 500 MCG TABLET (VITAMIN B-12) PO SCH (08:27)
[2019-03-29] MEDS: THIAMINE HCL 100 MG TAB PO SCH (08:27)
[2019-03-29] MEDS: NICOTINE 14 MG/24 HR PATCH TD SCH (08:28)
--- NOTE | 2019-03-29 11:40 | Family Medicine Progress Note ---
Date of Service March 29, 2019 Assessment & Plan (1) C. 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 IRREGULAR HEART RATE -2 abnormal EKGs this AM after herat rate noted on exam -Trops negx1, 2nd pending -Echo normal -will continue to monitor C. difficile colitis -improving -Cont vancomycin 125 mg p.o. 4 times daily ARF -improving, still not back to baseline however -likely 2/2 dehydration from multiple BM's -Cont rehydration with NSS at 80 -avoid NSAIDs for pain as below ETOH abuse/Ascites due to alcoholic cirrhosis -Pt states she is ok with outpt alcohol rehab but will NOT do inpt rehab. -Seen by case management and given outpatient resources. -Has been undergoing periodic paracentesis -cont to take PO folic acid, MV, thiamine -For now hold spironolactone -Negative alcohol level on 03/20. 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 Cont monitor -Ativan 1 mg IV every 4 hours as needed Anxiety/Depression -cont Buspirone 5 mg p.o. daily and Escitalopram daily. Tobacco abuse -NicoDerm patch Chronic Low Back Pain -Given PMH, will avoid narcotics. Avoid NSAIDs given ARF -Heat pads, Voltaren gel. -Added lidocaine patch 03/28 -Can f/u oupt with DO for OMT FEN/GI: NSS at 80. Regular Diet DVT Prophylaxis: Stockings, GHISLAINE Full Code Dispo: Med Surg. D/C once ARF resolved Supervising Physician Co-Signing Physician Notes Attending attestation Pt seen and examined in concert with Dr. Barnett. In agreement with the documented findings as noted in the resident documentation with any exceptions or additions as noted here. Newly developed lightheadedness with accompanying nonspecific EKG changes. Troponin x 1 negative, second pending. Echocardiogram essentially nl study. 1 BM as of time of evaluation with improved abdominal discomfort. On examination, unchanged abdominal distention with improved TTP. b/l LE swelling to the midshin 2+, stable. Notable sinus arrhythmia with inspiration on examination but S1/S2 nl RRR. Sinus arrhythmia w/ initial lightheadedness - encourage PO hydration but continue limited IVF for now, likely to D/C in AM. Trend 2nd troponin. C. diff colitis - continued gradual improvement w/ vancomycin. Acute renal failure - improved to 1.0 - as above. Cirrhosis w/ ascites in the setting of binge drinking/alcohol use - Working with case management re: outpatient rehabilitation Else see resident documentation as noted. Subjective Judi states she had about 3 bowel movements today. Complains of dizziness today. Denies JAMES, N/V, chest pain, SOB, palps. Review of Systems Review of Systems: All systems reviewed & are unremarkable except as noted in HPI & below Physical Exam Physical Exam: General: Alert, orientedx3. HEENT: NC/AT, PERRLA, EOMI, oropharynx moist. Chest: Nontender to palpation. CV: IRREGULAR RATE Resp: Breath sounds clear bilaterally, no increased effort of breathing. Abdomen: Firm, tender, distended. Extremities: 1+ pitting edema on left lower extremity and 2+ on right lower extremity. Results & Data Vital Signs (Past 12 Hours) Vital Signs Temp Pulse Resp BP Pulse Ox 03/29/19 07:00 36.5 C 92 H 18 157/78 H 99 Laboratory Results Laboratory Results - last 24 hr 03/29/19 03/29/19 03/29/19 05:25 05:25 08:50 WBC 15.26 H RBC 3.19 L Hgb 9.9 L Hct 29.4 L MCV 92.2 MCH 31.0 MCHC 33.7 RDW Std Deviation 52.1 H RDW Coeff of Spenser 15.4 H Plt Count 291 MPV 9.4 Immature Gran % (Auto) 2.4 Neut % (Auto) 59.2 Lymph % (Auto) 23.7 [place] % (Auto) 12.2 Eos % (Auto) 1.8 Baso % (Auto) 0.7 Immature Gran # (Auto) 0.36 H Neut # (Auto) 9.05 H Lymph # (Auto) 3.61 H [place] # (Auto) 1.86 H Eos # (Auto) 0.28 Baso # (Auto) 0.10 Sodium 139 Potassium 3.5 Chloride 116 H Carbon Dioxide 16 L Anion Gap 7.0 BUN 27 H Creatinine 1.00 D Est Cr Clr Drug Dosing 42.4 Est GFR ( Amer) 77.2 Est GFR (Non-Af Amer) 66.6 BUN/Creatinine Ratio 27.1 H Glucose 74 Calcium 7.7 L Magnesium 1.6 L Total Bilirubin 0.7 AST 82 H ALT 24 Alkaline Phosphatase 201 H Troponin I < 0.015 Total Protein 5.4 L Albumin 1.8 L Globulin 3.6 Albumin/Globulin Ratio 0.5 L 03/29/19 18:36 WBC RBC Hgb Hct MCV MCH MCHC RDW Std Deviation RDW Coeff of Spenser Plt Count MPV Immature Gran % (Auto) Neut % (Auto) Lymph % (Auto) [place] % (Auto) Eos % (Auto) Baso % (Auto) Immature Gran # (Auto) Neut # (Auto) Lymph # (Auto) [place] # (Auto) Eos # (Auto) Baso # (Auto) Sodium Potassium Chloride Carbon Dioxide Anion Gap BUN Creatinine Est Cr Clr Drug Dosing Est GFR ( Amer) Est GFR (Non-Af Amer) BUN/Creatinine Ratio Glucose Calcium Magnesium Total Bilirubin AST ALT Alkaline Phosphatase Troponin I < 0.015 Total Protein Albumin Globulin Albumin/Globulin Ratio Medications Administered Home Medications albuterol sulfate 2.5 mg/3 mL (0.083 %) solution for nebulization 2.5 mg INHALATION Q4H PRN #1 ml 03/15/19 [History Confirmed 03/25/19] folic acid 1 mg tablet 1 mg PO DAILY #30 tab 03/15/19 [Rx Confirmed 03/25/19] multivitamin tablet 1 tab PO DAILY 03/15/19 [History Confirmed 03/25/19] mecobalamin (vitamin B12) 1,000 mcg disintegrating tablet,sublingual 1,000 mcg SL DAILY #30 tab 03/16/19 [Rx Confirmed 03/25/19] thiamine HCl (vitamin B1) 100 mg tablet 100 mg PO DAILY #30 tab 03/16/19 [Rx Confirmed 03/25/19] buspirone 5 mg PO DAILY #30 tab 03/22/19 [Rx Confirmed 03/25/19] escitalopram oxalate 5 mg PO DAILY #30 tab 03/22/19 [Rx Confirmed 03/25/19] spironolactone 50 mg PO QAM #60 tab 03/22/19 [Rx Confirmed 03/25/19] Active Medications Albuterol (Ventolin 0.083% 2.5mg/3ml) 2.5 mg INH Q4H PRN PRN Reason: Shortness Of Breath Or Wheezing Stop: 04/24/19 22:27 Buspirone HCl (Buspar) 5 mg PO DAILY [facility] Stop: 04/25/19 08:59 Last Admin: 03/29/19 08:26 Dose: 5 mg Documented by: Cyanocobalamin (Vitamin B-12) 1,000 mcg PO DAILY [facility] Stop: 04/24/19 22:27 Last Admin: 03/29/19 08:27 Dose: 1,000 mcg Documented by: Diclofenac Sodium (Voltaren 1% Top) 1 appln EXT TID [facility] Stop: 04/25/19 13:59 Last Admin: 03/29/19 12:19 Dose: 1 appln Documented by: Escitalopram Oxalate (Lexapro) 5 mg PO DAILY [facility] Stop: 04/24/19 22:44 Last Admin: 03/29/19 08:26 Dose: 5 mg Documented by: Folic Acid (Folvite) 1 mg PO DAILY [facility] Stop: 04/24/19 22:27 Last Admin: 03/29/19 08:26 Dose: 1 mg Documented by: Sodium Chloride (Nss 1000ml) 1,000 mls @ 50 mls/hr IV .Q20H [facility] Stop: 04/24/19 22:27 Last Admin: 03/29/19 04:03 Dose: 50 mls/hr Documented by: Lorazepam (Ativan) 1 mg in 2 mls @ 2 mls/min IV Q4H PRN PRN Reason: Anxiety Stop: 04/25/19 04:41 Last Admin: 03/29/19 17:44 Dose: 2 mls/min Documented by: Lidocaine (Lidoderm 5%) 1 patch TD QAM [facility] Stop: 04/27/19 18:44 Last Admin: 03/29/19 08:27 Dose: 1 patch Documented by: Magnesium Oxide (Mag-Ox) 400 mg PO BID [facility] Stop: 04/28/19 08:59 Last Admin: 03/29/19 12:19 Dose: 400 mg Documented by: Miscellaneous (Remove Nicoderm Patch) 1 ea N/A HS [facility] Stop: 04/25/19 20:59 Last Admin: 03/28/19 19:50 Dose: Not Given Documented by: Miscellaneous (Remove Lidoderm Patch) 1 ea N/A DAILY@2100 [facility] Stop: 04/27/19 20:59 Last Admin: 03/28/19 23:40 Dose: 1 ea Documented by: Multivitamins (Multivitamin Tab) 1 tab PO DAILY [facility] Stop: 04/24/19 22:27 Last Admin: 03/29/19 08:27 Dose: 1 tab Documented by: Nicotine (Nicoderm Cq) 14 mg TD QAM [facility] Stop: 04/26/19 08:59 Last Admin: 03/29/19 08:28 Dose: Not Given Documented by: Ondansetron HCl (Zofran) 4 mg IV Q6H PRN PRN Reason: NAUSEA/VOMITING Stop: 04/24/19 22:27 Last Admin: 03/28/19 09:06 Dose: 4 mg Documented by: Raspberry (Raspberry) 5 ml PO Q6 [facility] Stop: 04/09/19 00:00 Last Admin: 03/29/19 17:44 Dose: 5 ml Documented by: Thiamine HCl (Vitamin B-1) 100 mg PO DAILY [facility] Stop: 04/24/19 22:27 Last Admin: 03/29/19 08:27 Dose: 100 mg Documented by: Vancomycin HCl (Vancomycin Hcl) 125 mg PO Q6 [facility] Stop: 04/05/19 00:00 Last Admin: 03/29/19 17:44 Dose: 125 mg Documented by: PG Care Time/CCT Total # of Minutes Spent Total Time Spent with Patient: Total time spent is greater than 50% in coordination of care (as documented) at patient's floor/unit and/or counseling patient:
[2019-03-29] MEDS: MAGNESIUM OXIDE 400 MG TAB PO SCH ×2 (12:19→20:43)
[2019-03-29] MEDS: LORazepam 1 MG/2 ML VIAL IV PRN (17:44)
[2019-03-30] MEDS: RASPBERRY SYRUP 5 ML UDP PO SCH ×2 (05:14→11:40)
[2019-03-30] MEDS: VANCOMYCIN HCL 125 MG/2.5ML SOLN PO SCH ×2 (05:15→11:40)
[2019-03-30 06:56] LABS: Hematocrit (blood only) 27.9 % (37-47); Hemoglobin 9.4 g/dL (12.0-16.0); Mean Corpuscular Hgb Conc 33.7 g/dL (32-36); Platelet Count 302 K/uL (130-400); RDW Coefficient of Variation 15.7 % (11.5-14.5); RDW Standard Deviation 52.7 fL (36.4-46.3); White Blood Count 17.15 K/uL (4.8-10.8)
[2019-03-30 07:21] LABS: Albumin Level 1.7 gm/dl (3.4-5.0); Calcium 8.1 mg/dl (8.5-10.1); Creatinine Clr Calc Pharmacy 39.6 ml/min; Est GFR (African American) 71.1; Est GFR (Non-African American) 61.3; Magnesium 1.7 mg/dl (1.8-2.4); Potassium 3.4 mmol/L (3.5-5.1)
[2019-03-30 07:24] LABS: Albumin Globulin Ratio 0.5 (0.9-2); Bilirubin,Total 0.6 mg/dl (0.2-1); Globulin 3.5 gm/dl (2.5-4.0); Total Protein 5.2 gm/dl (6.4-8.2)
[2019-03-30 07:48] LABS: ALC (manual) 2.98 K/uL (1.2-3.4); Basophils # (manual) 0.15 K/uL (0-0.2); Basophils % (manual) 0.9 %; Eosinophils # (manual) 0.29 K/uL (0-0.5); Eosinophils % (manual) 1.7 %; Lymphocytes # (manual) 2.98 K/uL (1.2-3.4); Lymphocytes % (manual) 17.4 %; Monocytes # (manual) 0.89 K/uL (0.11-0.59); Monocytes % (manual) 5.2 %; Myelocytes # (manual) 0.15 K/uL (0-0); Myelocytes % (manual) 0.9 %; Neutrophils % (manual) 73.9 %; RBC Morphology Unremarkable
[2019-03-30] MEDS: ONDANSETRON INJ 2 MG/ML 2 ML VIAL IV PRN (08:20)
[2019-03-30] MEDS: LIDOCAINE 5% 1 PATCH TD SCH (08:22)
[2019-03-30] MEDS: ESCITALOPRAM OXALATE 10 MG TAB PO SCH (08:23)
[2019-03-30] MEDS: THIAMINE HCL 100 MG TAB PO SCH (08:24)
[2019-03-30] MEDS: FOLIC ACID 1 MG TAB PO SCH (08:24)
[2019-03-30] MEDS: CYANOCOBALAMIN 500 MCG TABLET (VITAMIN B-12) PO SCH (08:24)
[2019-03-30] MEDS: MULTIVITAMIN TAB PO SCH (08:24)
[2019-03-30] MEDS: DICLOFENAC SOD 1% GEL 100 GM TUBE EXT SCH ×2 (08:25→13:46)
[2019-03-30] MEDS: MAGNESIUM OXIDE 400 MG TAB PO SCH (08:25)
[2019-03-30] MEDS: NICOTINE 14 MG/24 HR PATCH TD SCH (08:25)
[2019-03-30] MEDS ORDERED: POTASSIUM CHLORIDE 20 MEQ TABCR PO STA (08:33)
--- NOTE | 2019-03-30 11:12 | Family Medicine Progress Note ---
Date of Service March 30, 2019 Assessment & Plan (1) C. 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 Pt discharged with strong recommendation for inpatient rehab for muscle strength as well as alcohol rehab. However, she refused and opted to go home where she states she willl have 24hour care in her mother who is a [employer]OSTHE[employer] TEACHER. She also opted to followup with outpt alcohol rehab resources. SINUS ARRYTHMIA -unchanged this AM -Trops negx2, echo normal -EKGs with sinus arrythmia -will continue to monitor C. difficile colitis -improving -Cont vancomycin 125 mg p.o. 4 times daily ARF--RESOLVED -likely 2/2 dehydration from multiple BM's -Cont rehydration with NSS at 80 -avoid NSAIDs for pain as below ETOH abuse/Ascites due to alcoholic cirrhosis -Pt states she is ok with outpt alcohol rehab but will NOT do inpt rehab. -Seen by case management and given outpatient resources. -Has been undergoing periodic paracentesis -cont to take PO folic acid, MV, thiamine -For now hold spironolactone -Negative alcohol level on 03/20. 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 Cont monitor -Ativan 1 mg IV every 4 hours as needed Anxiety/Depression -cont Buspirone 5 mg p.o. daily and Escitalopram daily. Tobacco abuse -NicoDerm patch Chronic Low Back Pain -Given PMH, will avoid narcotics. Avoid NSAIDs given ARF -Heat pads, Voltaren gel. -Added lidocaine patch 03/28 -Can f/u oupt with DO for OMT FEN/GI: NSS at 80. Regular Diet DVT Prophylaxis: Stockings, GHISLAINE Full Code Dispo: D/C pending resolution of symptoms Supervising Physician Co-Signing Physician Notes See discharge summary Subjective Pt states she had about 2 bowel movements overnight. Has some mild nausea, no emesis. Denies fevers, chills, night sweats. Denies chest pain, SOB, palps. Review of Systems Review of Systems: All systems reviewed & are unremarkable except as noted in HPI & below Physical Exam Physical Exam: General: Alert, orientedx3. HEENT: NC/AT, PERRLA, EOMI, oropharynx moist. Chest: Nontender to palpation. CV: IRREGULAR RATE Resp: Breath sounds clear bilaterally Abdomen: Firm, tender, distended. Extremities: 1+ pitting edema on left lower extremity and 2+ on right lower extremity. Results & Data Vital Signs (Past 12 Hours) Vital Signs Temp Pulse Resp BP BP Pulse Ox 03/30/19 07:00 37 C 86 16 103/68 97 03/29/19 23:41 37.0 C 79 18 98/63 L 97 Laboratory Results Laboratory Results - last 24 hr 03/29/19 03/30/19 03/30/19 18:36 06:38 06:38 WBC 17.15 H RBC 3.00 L Hgb 9.4 L Hct 27.9 L MCV 93.0 MCH 31.3 MCHC 33.7 RDW Std Deviation 52.7 H RDW Coeff of Spenser 15.7 H Plt Count 302 MPV 9.0 Neutrophils % (Manual) 73.9 Lymphocytes % (Manual) 17.4 Monocytes % (Manual) 5.2 Eosinophils % (Manual) 1.7 Basophils % (Manual) 0.9 Myelocytes % (Man) 0.9 Neutrophils # (Manual) 12.67 H Total Absolute Neuts 12.67 H Lymphocytes # (Manual) 2.98 Total Abs Lymphocytes 2.98 Monocytes # (Manual) 0.89 H Eosinophils # (Manual) 0.29 Basophils # (Manual) 0.15 Myelocytes # (Manual) 0.15 H RBC Morphology Unremarkable Sodium 142 Potassium 3.4 L Chloride 117 H Carbon Dioxide 16 L Anion Gap 8.0 BUN 27 H Creatinine 1.07 Est Cr Clr Drug Dosing 39.6 Est GFR ( Amer) 71.1 Est GFR (Non-Af Amer) 61.3 BUN/Creatinine Ratio 25.0 H Glucose 101 H Calcium 8.1 L Magnesium 1.7 L Total Bilirubin 0.6 AST 67 H ALT 24 Alkaline Phosphatase 191 H Troponin I < 0.015 Total Protein 5.2 L Albumin 1.7 L Globulin 3.5 Albumin/Globulin Ratio 0.5 L Medications Administered Home Medications albuterol sulfate 2.5 mg/3 mL (0.083 %) solution for nebulization 2.5 mg INHALATION Q4H PRN #1 ml 03/15/19 [History Confirmed 03/25/19] folic acid 1 mg tablet 1 mg PO DAILY #30 tab 03/15/19 [Rx Confirmed 03/25/19] multivitamin tablet 1 tab PO DAILY 03/15/19 [History Confirmed 03/25/19] mecobalamin (vitamin B12) 1,000 mcg disintegrating tablet,sublingual 1,000 mcg SL DAILY #30 tab 03/16/19 [Rx Confirmed 03/25/19] thiamine HCl (vitamin B1) 100 mg tablet 100 mg PO DAILY #30 tab 03/16/19 [Rx Confirmed 03/25/19] buspirone 5 mg PO DAILY #30 tab 03/22/19 [Rx Confirmed 03/25/19] escitalopram oxalate 5 mg PO DAILY #30 tab 03/22/19 [Rx Confirmed 03/25/19] spironolactone 50 mg PO QAM #60 tab 03/22/19 [Rx Confirmed 03/25/19] Active Medications Albuterol (Ventolin 0.083% 2.5mg/3ml) 2.5 mg INH Q4H PRN PRN Reason: Shortness Of Breath Or Wheezing Stop: 04/24/19 22:27 Buspirone HCl (Buspar) 5 mg PO DAILY [facility] Stop: 04/25/19 08:59 Last Admin: 03/30/19 08:22 Dose: 5 mg Documented by: Cyanocobalamin (Vitamin B-12) 1,000 mcg PO DAILY [facility] Stop: 04/24/19 22:27 Last Admin: 03/30/19 08:24 Dose: 1,000 mcg Documented by: Diclofenac Sodium (Voltaren 1% Top) 1 appln EXT TID [facility] Stop: 04/25/19 13:59 Last Admin: 03/30/19 08:25 Dose: 1 appln Documented by: Escitalopram Oxalate (Lexapro) 5 mg PO DAILY [facility] Stop: 04/24/19 22:44 Last Admin: 03/30/19 08:23 Dose: 5 mg Documented by: Folic Acid (Folvite) 1 mg PO DAILY [facility] Stop: 04/24/19 22:27 Last Admin: 03/30/19 08:24 Dose: 1 mg Documented by: Sodium Chloride (Nss 1000ml) 1,000 mls @ 50 mls/hr IV .Q20H [facility] Stop: 04/24/19 22:27 Last Admin: 03/29/19 23:18 Dose: 50 mls/hr Documented by: Lorazepam (Ativan) 1 mg in 2 mls @ 2 mls/min IV Q4H PRN PRN Reason: Anxiety Stop: 04/25/19 04:41 Last Admin: 03/29/19 17:44 Dose: 2 mls/min Documented by: Lidocaine (Lidoderm 5%) 1 patch TD QAM [facility] Stop: 04/27/19 18:44 Last Admin: 03/30/19 08:22 Dose: 1 patch Documented by: Magnesium Oxide (Mag-Ox) 400 mg PO BID [facility] Stop: 04/28/19 08:59 Last Admin: 03/30/19 08:25 Dose: 400 mg Documented by: Miscellaneous (Remove Nicoderm Patch) 1 ea N/A HS [facility] Stop: 04/25/19 20:59 Last Admin: 03/29/19 20:44 Dose: 1 ea Documented by: Miscellaneous (Remove Lidoderm Patch) 1 ea N/A DAILY@2100 [facility] Stop: 04/27/19 20:59 Last Admin: 03/29/19 20:44 Dose: 1 ea Documented by: Multivitamins (Multivitamin Tab) 1 tab PO DAILY [facility] Stop: 04/24/19 22:27 Last Admin: 03/30/19 08:24 Dose: 1 tab Documented by: Nicotine (Nicoderm Cq) 14 mg TD QAM [facility] Stop: 04/26/19 08:59 Last Admin: 03/30/19 08:25 Dose: Not Given Documented by: Ondansetron HCl (Zofran) 4 mg IV Q6H PRN PRN Reason: NAUSEA/VOMITING Stop: 04/24/19 22:27 Last Admin: 03/30/19 08:20 Dose: 4 mg Documented by: Raspberry (Raspberry) 5 ml PO Q6 [facility] Stop: 04/09/19 00:00 Last Admin: 03/30/19 05:14 Dose: 5 ml Documented by: Thiamine HCl (Vitamin B-1) 100 mg PO DAILY [facility] Stop: 04/24/19 22:27 Last Admin: 03/30/19 08:24 Dose: 100 mg Documented by: Vancomycin HCl (Vancomycin Hcl) 125 mg PO Q6 [facility] Stop: 04/05/19 00:00 Last Admin: 03/30/19 05:15 Dose: 125 mg Documented by: PG Care Time/CCT Total # of Minutes Spent Total Time Spent with Patient: Total time spent is greater than 50% in coordination of care (as documented) at patient's floor/unit and/or counseling patient: Resident Activity Tracking Resident Involvement: Resident Care Provided Care Provided: Adult Hospital Medicine
--- NOTE | 2019-03-30 16:48 | Discharge Summary ---
Date of Service March 30, 2019 Admission HPI Per Admitting Provider The patient is a 48-year-old female with a past medical history including alcoholic cirrhosis with ascites, tobacco abuse, alcohol abuse, hyponatremia, anxiety and depression, diabetes mellitus who presents to the emergency department with complaint of chronic low back pain and complaint of loose stools over the past 1-1/2 weeks. She denies any recent travels or sick exposures. She has not eaten any new or questionable foods. She denies being on any recent antibiotics Admission Exam Per Admitting Provider The patient is awake, alert and oriented 3, looks malnourished, normocephalic and atraumatic, lying in bed and in no acute distress. HEENT--PERRL, EOMI, mucous membranes and oropharynx dry. Neck--supple. No JVD. No bruits. Thyroid normal, trachea midline, no adenopathy. Heart--normal S1 and S2. No murmurs, rubs or gallops. Lungs--clear bilaterally, no respiratory distress, no accessory muscle use. Abdomen--normal bowel sounds and soft. Nontender. Distended and tympanitic. Extremities--no cyanosis or clubbing. 2+ bilateral pretibial and pedal pitting edema. There are good distal pulses b/l. Dermatologic--normal skin turgor, normal color, no abnormal lymph nodes, no rash. Neurologic--cranial nerves II through XII grossly intact. Rheumatologic--normal range of motion. Psychiatric--normal affect. Principal Diagnosis c. diff colitis Discharge Exam General: Alert, orientedx3. HEENT: NC/AT, PERRLA, EOMI, oropharynx moist. Chest: Nontender to palpation. CV: Irregular rate Resp: Breath sounds clear bilaterally Abdomen: Firm, tender, distended. Extremities: 1+ pitting edema on left lower extremity and 2+ on right lower extremity. Discharge Data Allergies Allergy/AdvReac Type Severity Reaction Status Date / Time Bactrim Allergy Severe CHEST PAIN Unverified 12/26/16 19:35 sulfamethoxazole Allergy Severe CHEST PAIN Verified 03/25/19 17:04 trimethoprim Allergy Severe CHEST PAIN Verified 03/25/19 17:04 Consultations 03/25/19 19:05 ED Decision to Admit Stat 03/25/19 22:28 Consult Case Management - Discharge Planning Routine Ordered Studies 03/27/19 17:31 US venous doppler LE BI Routine Hospital Course (1) C. difficile colitis: 48 y/o F with PMH including alcoholic cirrhosis with ascites, tobacco abuse, alcohol abuse, hyponatremia, anxiety and depression, diabetes mellitus presents with chronic low back pain and loose stools over 2-3 days [employer]BE [employer]. 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 Admitted on March 25 and discharged on March 30 2019. Pt discharged with strong recommendation for inpatient rehab for muscle strength as well as inpatient alcohol rehab. However, she refused and opted to go home where she states she will have 24hour care in her mother who is a SCI[employer]. She also opted to followup with outpt alcohol rehab resources. SINUS ARRHYTHMIA -unchanged this AM on discharge -Trops negx2, echo normal -EKGs with sinus arrhythmia -strong PCP followup recommended. C. difficile colitis -improving on discharge to 2 bowel movements per day. - Received 4 days worth of PO Vancomycin and discharged with 6 days more for total of 10 days of treatment. -Cont vancomycin 125 mg p.o. 4 times daily. -Close PCP followup strongly recommended. ARF--RESOLVED on discharge -likely 2/2 dehydration from multiple BM's -Had rehydration with NSS at 80 -avoided NSAIDs for pain as below -clsoe PCP followup strongly recommended. ETOH abuse/Ascites due to alcoholic cirrhosis -Pt states she is ok with outpt alcohol rehab but will NOT do inpt rehab. -Seen by case management and given outpatient resources. -Has been undergoing periodic paracentesis -cont to take PO folic acid, MV, thiamine - spironolactone held while hospitalized and restarted on discharge. -Negative alcohol level on 03/20. 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 -Ativan 1 mg IV every 4 hours as needed -Close PCP followup recommended. Anxiety/Depression -cont Buspirone 5 mg p.o. daily and Escitalopram daily. Tobacco abuse -NicoDerm patch Chronic Low Back Pain -Given PMH, avoided narcotics for treatment. -Avoided NSAIDs given the acute renal failure she presented with. -Heat pads, Voltaren gel were used. Voltaren gel sent to her pharmacy on discharge. -Added lidocaine patch 03/28 for additional pain relief. -Can f/u oupt with DO for OMT -Close PCP followup strongly recommended. Total Time Total Time Spent Total Time Spent (In Minutes): 60 Discharge Plan Discharge Items Patient Disposition: Home - Self-Care Reason For Visit: C DIFF, ANASARCA Discharge Diagnosis: c difficile colitis Discharge Goals: Decrease discomfort and Improve disease control Activity: Per 'Additional Instructions' section Non-emergency contact: Primary Care Provider Call non-emergency contact if: your symptoms worsen and you have a fever Follow-up/Referrals: Luzma Colvin DO [Primary Care Provider] - Diet: Regular Addtl Provider Instructions: You were admitted because you had an infection called clostridium difficile. -You have completed 4 days of treatment while hospitalized. You are being discharged with medication for an additional 6 days. Please take the medication as advised. -Your liver is also severely affected by your alcohol use. -We offered to help with inpatient rehabilitation but your wishes were to go with outpatient help. We STRONGLY recommend that you call the organizations or facilities we provided you information on to help with your alcohol use. -We also recommended that you go to a physical inpatient rehab to help with your strength and ability to take care of yourself at home. You declined placement opting to go home instead. We strongly advise that you have someone at home to help as you will need 24 hour care. You stated that you do, and that your help is your mother who is a SCI[employer] EDITOR. We STRONGLY recommend close followup with your primary care doctor upon discharge. -Please return to the emergency room should your symptoms worsen or you suddenly develop the acute onset of trouble breathing or chest pain. -It was a pleasure taking care of you while hospitalized. Prescriptions: New vancomycin 125 mg capsule 125 mg PO Q6H 6 Days Qty: 24 RF: 0 diclofenac sodium [Voltaren] 1 % gel 4 gm TOP QID Qty: 100 RF: 5 Continued mecobalamin (vitamin B12) 1,000 mcg tablet,disintegrating 1,000 mcg SL DAILY Qty: 30 RF: 5 thiamine HCl (vitamin B1) 100 mg tablet 100 mg PO DAILY Qty: 30 RF: 5 multivitamin tablet 1 tab PO DAILY RF: 0 albuterol sulfate 2.5 mg /3 mL (0.083 %) solution for nebulization 2.5 mg inhalation Q4H PRN (Reason: Shortness Of Breath Or Wheezing) Qty: 1 RF: 0 folic acid 1 mg tablet 1 mg PO DAILY Qty: 30 RF: 5 escitalopram oxalate 5 mg tablet 5 mg PO DAILY Qty: 30 RF: 0 buspirone 5 mg tablet 5 mg PO DAILY Qty: 30 RF: 0 spironolactone 25 mg tablet 50 mg PO QAM Qty: 60 RF: 1 Stand-Alone Forms: Discharge CDIFF, My [facility] Discharge Orders: Discharge Order (Routine); Ordered 03/30/19 Ordered By: Isatu Barnett Admission Data Admit Date/Time: 03/27/19 10:48 Attending Provider: Ajay Eagle Admit Provider: Estrada Flowers Primary Care Provider: Luzma Colvin Other Providers: Estrada Flowers Service: Medical Other Interventions: Discharge Summary Assessment (RN) Last Done: 03/30/19 15:31 DC Date/Time DO NOT enter until pt leaves facility: 03/30/19 16:45 Supervising Physician Co-Signing Physician Notes Attending attestation Pt seen and examined in concert with Dr. Barnett. In agreement with the documented findings as noted in the resident documentation with any exceptions or additions as noted here. Resolution of newly developed lightheadedness and improvement in both diffuse abdominal pain/distention and frequency/severity of bowel movement. On examination, improved abdominal distention with improved TTP. b/l LE swelling to the midshin 1+. S1/S2 nl RRR. Deconditioning - PT/OT recommendation for inpatient rehab prior to return home but patient emphatic that has 24 hour care and will not go to inpatient rehab. C. diff colitis - continued gradual improvement w/ vancomycin, rx to complete course on discharge. Acute renal failure - resolved Sinus arrhythmia w/ initial lightheadedness - resolved, negative troponin and echocardiogram Cirrhosis w/ ascites in the setting of binge drinking/alcohol use - refused inpatient alcohol rehab program, material provided for outpatient rehab. Else see resident documentation as noted.
== END 2019-03-30 16:45 | disposition home or self-care (01) | DRG 371 ==
LOC: 4E 15:09 → ED 15:09 → SUATTDRO 20:03 → 4E 21:28

== ENCOUNTER 2019-04-04 03:08 | Inpatient (IN) ==
[2019-04-04] MEDS ORDERED: PANTOprazole 80 MG in DEXTROSE 5% 100 ML IV STA (03:25)
[2019-04-04] MEDS ORDERED: OCTREOTIDE ACETATE 50 MCG in SYRINGE 9.5 ML IV STA (03:29)
[2019-04-04] MEDS ORDERED: SODIUM CHLORIDE 0.9% 1000ML 1,000 ML IV SCH (03:30)
[2019-04-04] MEDS ORDERED: SODIUM CHLORIDE 0.9% 250 ML IV PRN ×4 (03:37→06:58)
[2019-04-04 03:46] LABS: iSTAT Creatinine 2.1 mg/dl (0.6-1.3); iSTAT Hemoglobin 6.5 g/dl (12.0-16.0); iSTAT Ionized Calcium 1.24 mmol/l (1.12-1.32); iSTAT Potassium 5.1 mEq/L (3.3-5.0)
[2019-04-04 03:52] LABS: INR 1.7 (0.9-1.1); Partial Thromboplastin Ratio 1.4
[2019-04-04 03:54] LABS: Alanine Aminotransferase 22 U/L (12-78); Albumin Level 1.5 gm/dl (3.4-5.0); Aspartate Aminotransferase 45 U/L (15-37); BUN Creatinine Ratio 26.7 (10-20); Blood Urea Nitrogen 51 mg/dl (7-18); Calcium 7.6 mg/dl (8.5-10.1); Carbon Dioxide 20 mmol/L (21-32); Chloride 112 mmol/L (98-107); Est GFR (African American) 35.5; Est GFR (Non-African American) 30.6; Glucose 114 mg/dl (70-99); Magnesium 1.6 mg/dl (1.8-2.4); Potassium 5.1 mmol/L (3.5-5.1); Sodium 137 mmol/L (136-145)
[2019-04-04 03:55] LABS: Basophils # (auto) 0.14 K/uL (0-0.2); Basophils % (auto) 0.4 %; Eosinophils # (auto) 0.09 K/uL (0-0.5); Eosinophils % (auto) 0.3 %; Hematocrit (blood only) 20.6 % (37-47); Hemoglobin 7.1 g/dL (12.0-16.0); Immature Granulocytes # (auto) 0.51 K/uL (0.00-0.02); Immature Granulocytes % (auto) 1.5 %; Lymphocytes # (auto) 4.01 K/uL (1.2-3.4); Lymphocytes % (auto) 11.7 %; Mean Corpuscular Hgb Conc 34.5 g/dL (32-36); Mean Platelet Volume 9.8 fL (7.4-10.4); Monocytes # (auto) 1.71 K/uL (0.11-0.59); Neutrophils # (auto) 27.96 K/uL (1.4-6.5); Neutrophils % (auto) 81.1 %; Platelet Count 345 K/uL (130-400); RBC Morphology Unremarkable; RDW Coefficient of Variation 15.5 % (11.5-14.5); RDW Standard Deviation 52.3 fL (36.4-46.3); Red Blood Count 2.24 M/uL (4.2-5.4); White Blood Count 34.42 K/uL (4.8-10.8)
[2019-04-04] MEDS ORDERED: SODIUM CHLORIDE 0.9% 1000ML 2,000 ML IV ONE (03:55)
[2019-04-04 03:59] LABS: Albumin Globulin Ratio 0.4 (0.9-2); Alkaline Phosphatase 138 U/L (45-117); Bilirubin,Total 0.6 mg/dl (0.2-1); Globulin 3.5 gm/dl (2.5-4.0); Troponin I < 0.015 ng/ml (0-0.045)
--- NOTE | 2019-04-04 04:03 | Emergency Department Note ---
History of Present Illness General Chief complaint: Vomiting Stated complaint: VOMITING BLOOD History of Present Illness This 48-year-old presents to the ER complaining of vomiting blood Location: Generalized Quality: Fatigue Severity: Moderate Duration: Today Timing: Today Context: found her covered in coffee-ground emesis and summoned EMS Modifying factors: better with nothing; worse with nothing Patient is currently being treated for C. difficile on vancomycin. She was here the other day for back pain. She states she has had no alcohol this past week. Patient states she had 2 episodes of hematemesis at home. No black or blood in the stool. She still has been having some loose stool. Patient has chronic back pain. Patient denies chest pain, dyspnea, abdominal pain. Patient denies prior history of blood transfusions or having an endoscopy. She states she has refused endoscopies in the past. states he found her covered in coffee-ground emesis. He summoned EMS. Home Medications Home Medications Medication Instructions Recorded Confirmed Type albuterol sulfate 2.5 mg/3 mL 2.5 mg INHALATION Q4H PRN #1 ml 03/15/19 04/04/19 History (0.083 %) solution for nebulization folic acid 1 mg tablet 1 mg PO DAILY #30 tab 03/15/19 04/04/19 Rx multivitamin tablet 1 tab PO DAILY 03/15/19 04/04/19 History mecobalamin (vitamin B12) 1,000 1,000 mcg SL DAILY #30 tab 03/16/19 04/04/19 Rx mcg disintegrating tablet,sublingual thiamine HCl (vitamin B1) 100 mg 100 mg PO DAILY #30 tab 03/16/19 04/04/19 Rx tablet buspirone 5 mg PO DAILY #30 tab 03/22/19 04/04/19 Rx escitalopram oxalate 5 mg PO DAILY #30 tab 03/22/19 04/04/19 Rx spironolactone 50 mg PO QAM #60 tab 03/22/19 04/04/19 Rx diclofenac sodium [Voltaren] 4 gm TOP QID #100 gm 03/30/19 04/04/19 Rx vancomycin 125 mg PO Q6H 6 Days #24 cap 03/30/19 04/04/19 Rx vancomycin [Firvanq] 125 mg PO QID 04/02/19 04/04/19 History Allergies Allergy/AdvReac Type Severity Reaction Status Date / Time Bactrim Allergy Severe CHEST PAIN Unverified 12/26/16 19:35 sulfamethoxazole Allergy Severe CHEST PAIN Verified 04/02/19 04:20 trimethoprim Allergy Severe CHEST PAIN Verified 04/02/19 04:20 Past Med/Surg History Medical History Pneumonia (Acute) Neuropathy (Acute) Heartburn (Acute) Depression with anxiety (Acute) Alcohol dependence (Acute) Alcoholic cirrhosis of liver Hyponatremia Herpes simplex Tobacco abuse ETOH abuse Prolonged INR Acute anemia Elevated LFTs Ascites due to alcoholic cirrhosis Hypomagnesemia Hypokalemia Anxiety and depression Hypomagnesemia Hypoalbuminemia Diabetes Heart disease Abdominal distension Abdominal pain Acute electrocardiogram changes C. difficile colitis Dehydration E. coli UTI Elevated WBC count Leukocytosis Leukocytosis Lumbar pain Nausea vomiting and diarrhea Rash Surgical History H/O dilation and curettage History of abdominal paracentesis 3L in February 2019 Previous section Social History Preferred Language: Citizen Of [place] Communication Ability: Effective Beliefs That Will Affect Care: Muslim Muslim Beliefs: Hoahaoism marital status: Current Living Situation: Spouse and Family Current Living Situation Comment: , "his son, my dtr, her dtr and my son" current occupational status: unemployed Feels Safe at Home: Yes Smoking Status: Current every day smoker Tobacco Type: cigarettes Cigarettes Per Day: 20 Second Hand Exposure: No Hx Alcohol Use: Yes (known alcoholism) Alcohol type: beer and hard liquor Hx Substance Use: No Review of Systems All systems reviewed & are unremarkable except as noted in HPI & below Physical Exam Vital Signs Vital Signs - 24 hr 04/04/19 03:10 04/04/19 03:30 04/04/19 03:45 Temperature 36.7 C Temperature Source Oral Sepsis Recent Fever Within 48 Hours No Sepsis New/Unexplained Change in Mental Status No Sepsis Action Taken by Nursing No Action Required Pulse Rate 96 H 95 H 91 H Pulse Rate from SpO2 Sensor 96 H 92 H Respiratory Rate 20 20 16 Respiratory Effort / Characteristics Non-Labored Respiratory Depth Normal Blood Pressure 75/49 L Blood Pressure Mean 57 Pulse Oximetry 96 100 100 Oxygen Delivery Method Nasal Cannula Oxygen Flow Rate 2 04/04/19 03:46 04/04/19 04:00 04/04/19 04:01 Temperature Temperature Source Sepsis Recent Fever Within 48 Hours Sepsis New/Unexplained Change in Mental Status Sepsis Action Taken by Nursing Pulse Rate 90 83 85 Pulse Rate from SpO2 Sensor 90 85 85 Respiratory Rate 20 20 19 Respiratory Effort / Characteristics Respiratory Depth Blood Pressure 75/47 L 77/47 L Blood Pressure Mean 56 57 Pulse Oximetry 100 97 93 Oxygen Delivery Method Oxygen Flow Rate 04/04/19 04:13 04/04/19 04:15 04/04/19 04:16 Temperature Temperature Source Sepsis Recent Fever Within 48 Hours Sepsis New/Unexplained Change in Mental Status Sepsis Action Taken by Nursing Pulse Rate 94 H 94 H 94 H Pulse Rate from SpO2 Sensor 94 H 94 H 94 H Respiratory Rate 20 17 18 Respiratory Effort / Characteristics Respiratory Depth Blood Pressure 90/64 L 94/61 L Blood Pressure Mean 72 72 Pulse Oximetry 100 100 100 Oxygen Delivery Method Oxygen Flow Rate 04/04/19 04:27 04/04/19 04:30 Temperature 36.4 C L Temperature Source Oral Sepsis Recent Fever Within 48 Hours Sepsis New/Unexplained Change in Mental Status Sepsis Action Taken by Nursing Pulse Rate 91 H 95 H Pulse Rate from SpO2 Sensor 92 H Respiratory Rate 20 21 Respiratory Effort / Characteristics Respiratory Depth Blood Pressure 85/60 L 91/57 L Blood Pressure Mean 68 68 Pulse Oximetry 99 100 Oxygen Delivery Method Oxygen Flow Rate 2 VITALS: Vitals are noted on the nurse's note and reviewed by myself. Vital signs hypotensive. GENERAL: White frail appearing female, in no acute distress, nondiaphoretic, well-developed well-nourished. SKIN: The skin was without rashes, erythema. There is no tenting of the skin. Capillary reflex less than 2 seconds. HEAD: Normocephalic atraumatic. EARS: External auditory canals clear, tympanic membranes pearly brady without erythema or effusion bilaterally. EYES: Pupils equal round and reactive to light and accommodation. Conjunctivae without injection, sclerae without icterus. Extraocular movements intact. NOSE: Patent, turbinates without inflammation or discharge. No sinus tenderness. MOUTH: Mucous membranes dry. Dried blood on the tongue. Pharynx without erythema or exudate. Uvula midline. Airway patent. Tongue does not deviate. NECK: Supple without nuchal rigidity. No lymphadenopathy. No thyromegaly. Cervical spine is nontender. No JVD. HEART: Regular rate and rhythm LUNGS: Clear to auscultation bilaterally without wheezes, rales or rhonchi. No retractions or accessory muscle use. ABDOMEN: Positive bowel sounds x 4. Normal tympanic percussion. Soft, distended, nontender, without masses or organomegaly. Fajardo sign negative. No guarding or rebound tenderness. No CVA tenderness MUSCULOSKELETAL: No muscle atrophy, erythema, noted. NEURO: Patient was alert and oriented to person place and time. Normal sensation to light and sharp touch. No focal neurological deficits. Course Administered Medications Pantoprazole Sodium 40 mg/ (Dextrose) 100 mls @ 20 mls/hr IV Q5H CHEN Stop: 04/04/19 08:44 Last Admin: 04/04/19 04:15 Dose: 20 mls/hr Documented by: [id number] Octreotide Acetate 500 mcg/ (Sodium Chloride) 105 mls @ 10.5 mls/hr IV .Q10H CHEN Stop: 05/04/19 03:29 Last Infusion: 04/04/19 04:33 Dose: 0 mcg/hr, 0 mls/hr Documented by: Bella Admin: 04/04/19 04:04 Dose: 50 mcg/hr, 10.5 mls/hr Documented by: [id number] Sodium Chloride (Nss 1000ml) 2,000 mls @ 999 mls/hr IV .Q2H1M ONE Stop: 04/04/19 05:55 Last Admin: 04/04/19 03:58 Dose: 999 mls/hr Documented by: [id number] Discontinued Medications Pantoprazole Sodium 80 mg/ (Dextrose) 120 mls @ 480 mls/hr IV NOW STA Stop: 04/04/19 03:39 Last Infusion: 04/04/19 04:14 Dose: 0 mls/hr Documented by: [id number] Admin: 04/04/19 03:58 Dose: 480 mls/hr Documented by: [id number] Octreotide Acetate 50 mcg/ (Syringe) 10 mls @ 3 mls/min IV ONE STA Stop: 04/04/19 03:32 Last Admin: 04/04/19 03:59 Dose: 3 mls/min Documented by: [id number] Ondansetron HCl (Zofran) Confirm Administered Dose 4 mg .ROUTE .STK-MED ONE Stop: 04/04/19 04:08 Last Admin: 04/04/19 04:10 Dose: Not Given Documented by: [id number] Ondansetron HCl (Zofran) 4 mg IV NOW STA Stop: 04/04/19 04:09 Last Admin: 04/04/19 04:10 Dose: 4 mg Documented by: [id number] Medical Decision Making Medical Records Attestation: I reviewed the patient's medical records. Home Medications Current Medication List: was personally reviewed by me Laboratory Data Attestation: I reviewed the patient's lab results. Result diagrams: 04/04/19 03:23 04/04/19 03:23 Lab Results 04/04/19 04/04/19 04/04/19 Range/Units 03:23 03:23 03:23 WBC 34.42 H* (4.8-10.8) K/uL RBC 2.24 L (4.2-5.4) M/uL Hgb 7.1 L (12.0-16.0) g/dL POC Hgb (12.0-16.0) g/dl Hct 20.6 L* (37-47) % POC Hct (37-47) % MCV 92.0 (80-100) fL MCH 31.7 (25-34) pg MCHC 34.5 (32-36) g/dL RDW Std Deviation 52.3 H (36.4-46.3) fL RDW Coeff of Spenser 15.5 H (11.5-14.5) % Plt Count 345 (130-400) K/uL MPV 9.8 (7.4-10.4) fL Immature Gran % (Auto) 1.5 % Neut % (Auto) 81.1 % Lymph % (Auto) 11.7 % [place] % (Auto) 5.0 % Eos % (Auto) 0.3 % Baso % (Auto) 0.4 % Immature Gran # (Auto) 0.51 H (0.00-0.02) K/uL Neut # (Auto) 27.96 H (1.4-6.5) K/uL Lymph # (Auto) 4.01 H (1.2-3.4) K/uL [place] # (Auto) 1.71 H (0.11-0.59) K/uL Eos # (Auto) 0.09 (0-0.5) K/uL Baso # (Auto) 0.14 (0-0.2) K/uL RBC Morphology Unremarkable PT 17.0 H (9.0-12.0) Seconds INR 1.7 H (0.9-1.1) APTT 37.0 H (21.0-31.0) Seconds PTT Ratio 1.4 POC Sodium (135-144) mEq/L Sodium 137 (136-145) mmol/L POC Potassium (3.3-5.0) mEq/L Potassium 5.1 (3.5-5.1) mmol/L POC Chloride (101-112) mEq/L Chloride 112 H (98-107) mmol/L Carbon Dioxide 20 L (21-32) mmol/L POC Total CO2 (24-31) mEq/l Anion Gap 5.0 (3-11) POC Anion Gap (16-25) mmol/L POC BUN (7-18) mg/dl BUN 51 H (7-18) mg/dl Creatinine 1.90 H (0.6-1.2) mg/dl POC Creatinine (0.6-1.3) mg/dl Est Cr Clr Drug Dosing Not Reportable Est GFR ( Amer) 35.5 Est GFR (Non-Af Amer) 30.6 BUN/Creatinine Ratio 26.7 H (10-20) Glucose 114 H (70-99) mg/dl POC Glucose (other) (70-99) mg/dl Calcium 7.6 L (8.5-10.1) mg/dl POC Ioniz Calcium Cresencio (1.12-1.32) mmol/l Magnesium 1.6 L (1.8-2.4) mg/dl Total Bilirubin 0.6 (0.2-1) mg/dl AST 45 H (15-37) U/L ALT 22 (12-78) U/L Alkaline Phosphatase 138 H (45-117) U/L Troponin I < 0.015 (0-0.045) ng/ml Total Protein 5.0 L (6.4-8.2) gm/dl Albumin 1.5 L (3.4-5.0) gm/dl Globulin 3.5 (2.5-4.0) gm/dl Albumin/Globulin Ratio 0.4 L (0.9-2) Ethyl Alcohol mg/dL (0-3) mg/dl Blood Type Antibody Screen Crossmatch 04/04/19 04/04/19 04/04/19 Range/Units 03:23 03:23 03:33 WBC (4.8-10.8) K/uL RBC (4.2-5.4) M/uL Hgb (12.0-16.0) g/dL POC Hgb 6.5 L* (12.0-16.0) g/dl Hct (37-47) % POC Hct 19 L* (37-47) % MCV (80-100) fL MCH (25-34) pg MCHC (32-36) g/dL RDW Std Deviation (36.4-46.3) fL RDW Coeff of Spenser (11.5-14.5) % Plt Count (130-400) K/uL MPV (7.4-10.4) fL Immature Gran % (Auto) % Neut % (Auto) % Lymph % (Auto) % [place] % (Auto) % Eos % (Auto) % Baso % (Auto) % Immature Gran # (Auto) (0.00-0.02) K/uL Neut # (Auto) (1.4-6.5) K/uL Lymph # (Auto) (1.2-3.4) K/uL [place] # (Auto) (0.11-0.59) K/uL Eos # (Auto) (0-0.5) K/uL Baso # (Auto) (0-0.2) K/uL RBC Morphology PT (9.0-12.0) Seconds INR (0.9-1.1) APTT (21.0-31.0) Seconds PTT Ratio POC Sodium 136 (135-144) mEq/L Sodium (136-145) mmol/L POC Potassium 5.1 H (3.3-5.0) mEq/L Potassium (3.5-5.1) mmol/L POC Chloride 108 (101-112) mEq/L Chloride (98-107) mmol/L Carbon Dioxide (21-32) mmol/L POC Total CO2 17 L (24-31) mEq/l Anion Gap (3-11) POC Anion Gap 17.0 (16-25) mmol/L POC BUN 47 H (7-18) mg/dl BUN (7-18) mg/dl Creatinine (0.6-1.2) mg/dl POC Creatinine 2.1 H (0.6-1.3) mg/dl Est Cr Clr Drug Dosing Est GFR ( Amer) Est GFR (Non-Af Amer) BUN/Creatinine Ratio (10-20) Glucose (70-99) mg/dl POC Glucose (other) 118 H (70-99) mg/dl Calcium (8.5-10.1) mg/dl POC Ioniz Calcium Cresencio 1.24 (1.12-1.32) mmol/l Magnesium (1.8-2.4) mg/dl Total Bilirubin (0.2-1) mg/dl AST (15-37) U/L ALT (12-78) U/L Alkaline Phosphatase (45-117) U/L Troponin I (0-0.045) ng/ml Total Protein (6.4-8.2) gm/dl Albumin (3.4-5.0) gm/dl Globulin (2.5-4.0) gm/dl Albumin/Globulin Ratio (0.9-2) Ethyl Alcohol mg/dL < 3.0 (0-3) mg/dl Blood Type O Positive Antibody Screen NEGATIVE Crossmatch See Detail Imaging Data Attestation: I personally reviewed and interpreted this imaging study as follows: MDM Narrative Prior records/ancillary studies reviewed. Triage Nursing notes reviewed. Additional history obtained from the family. The patient's history was concerning for possible gastrointestinal bleeding. Differential diagnosis: Etiologies such as diverticulosis, AVM, coagulopathy, colitis, inflammatory bowel disease, malignancy, Jacklyn-Dias tear, esophagitis, peptic ulcer disease, variceal bleed, gastritis, epistaxis, fissure, hemorrhoids, as well as others were entertained. Physical exam: As above. The patients vital signs were hypotensive. ER treatment provided: 2 lines immediately initiated. Patient was type and crossmatch for 2 units. She was started on octreotide and Protonix Patient was consented to blood transfusion. Infection control measures were implemented. On reassessment the patient felt better. Diagnostics interpreted by me: ECG: Normal sinus, normal intervals, T wave flattening in the lateral leads, rate of 94. Impression normal sinus rhythm with T wave flattening in the lateral leads interpreted by myself I think arrhythmia is unlikely. EKG shows normal sinus rhythm with no interval abnormalities such as QT prolongation or WPW. There are no findings to suggest Brugada syndrome. Cardiac monitoring in the emergency department reveals no tachycardic or bradycardic dysrhythmia. Hypertrophic cardiomyopathy was considered but there are no clear historical elements pointing toward this. EKG is not suggestive. The QRS voltage is not extremely large and there are no suggestive Q waves. The labs revealed worsening anemia. Elevated creatinine. Leukocytosis Worsening INR Imaging studies: Chest x-ray with no acute consolidation, pneumothorax or free air per my interpretation Consultation: A consultation was placed with Dr. Case, hospitalist. The case was discussed and diagnostics were reviewed. The patient was evaluated in the ER for further treatment. A consultation was placed with GI, Dr. Oviedo. Case was discussed and diagnostics were reviewed. He recommends current orders along with adding vitamin K. The lgsw, Dr Evangelista, was consulted and will accept the patient to the unit. This appears to be consistent with acute upper GI bleed. Patient was immediately typed and crossmatched 2 units of blood. She was written for Protonix and octreotide. 2 lines were initiated. Patient was hypotensive. Her blood pressure did come up with IV fluids and blood. Patient began to vomit blood in the ER. Patient had only had one episode while in the ER. Patient states she would like everything done. She is a full code. Patient was informed that she is a very sick woman. understands the risks involved also. Medicine/lgsw/GI were consulted. Patient was reassessed multiple times. Blood pressure did improve. Patient was admitted to the intensive care unit. By The evaluation outlined above emergent etiologies such as esophageal perforation, epistaxis, inflammatory bowel disease, as well as others were deemed relatively unlikely. The pt informed about the findings as listed above. All questions were answered and pleased with the treatment. Case reviewed with my attending The chart was completed utilizing [employer] Speech voice recognition software. Grammatical errors, random word insertions, pronoun errors, and incomplete sentences are an occassional consequence of this system due to software limita tions, ambient noise, and hardware issues. Any formal questions or concerns about the content, text, or information contained within the body of this dictation should be directly addressed to the physician corporate administrative assistant for clarification. I have personally spent greater than 60 minutes of critical care time in the direct management of this patient. This includes bedside care, interpretation of diagnostic studies, and testing, discussion with consultants, patient, and family members, and other required patient management activities. This 60 minutes is in excess of all separately billable procedures. Impression & Plan Acute GI bleeding, Anemia Discharge Plan Visit Data Chief Complaint: Vomiting Stated Complaint: VOMITING BLOOD ED Provider: Jeannette Jasmine ED Midlevel Provider: Shantell Becerril Discharge Problem: Acute GI bleeding, Anemia Patient Disposition: Admitted As Inpatient Condition: Critical Forms Stand Alone Forms: My [facility] Prescriptions Prescriptions: No Action mecobalamin (vitamin B12) 1,000 mcg tablet,disintegrating 1,000 mcg SL DAILY Qty: 30 RF: 5 thiamine HCl (vitamin B1) 100 mg tablet 100 mg PO DAILY Qty: 30 RF: 5 multivitamin tablet 1 tab PO DAILY RF: 0 albuterol sulfate 2.5 mg /3 mL (0.083 %) solution for nebulization 2.5 mg inhalation Q4H PRN (Reason: Shortness Of Breath Or Wheezing) Qty: 1 RF: 0 folic acid 1 mg tablet 1 mg PO DAILY Qty: 30 RF: 5 Firvanq 25 mg/mL Recon Soln 125 mg PO QID RF: 0 escitalopram oxalate 5 mg tablet 5 mg PO DAILY Qty: 30 RF: 0 buspirone 5 mg tablet 5 mg PO DAILY Qty: 30 RF: 0 spironolactone 25 mg tablet 50 mg PO QAM Qty: 60 RF: 1 vancomycin 125 mg capsule 125 mg PO Q6H 6 Days Qty: 24 RF: 0 diclofenac sodium [Voltaren] 1 % gel 4 gm TOP QID Qty: 100 RF: 5 Referrals Referrals: Luzma Colvin DO [Primary Care Provider] -
[2019-04-04] MEDS: OCTREOTIDE ACETATE 500 MCG in 0.9 % SODIUM CHLORIDE 100 ML IV SCH ×2 (04:04→16:19)
[2019-04-04] MEDS ORDERED: ONDANSETRON INJ 2 MG/ML 2 ML VIAL ONE (04:07)
[2019-04-04] MEDS ORDERED: ONDANSETRON INJ 2 MG/ML 2 ML VIAL IV STA (04:08)
[2019-04-04] MEDS: PANTOprazole 40 MG in DEXTROSE 5% 100 ML IV SCH ×4 (04:15→20:16)
[2019-04-04] MEDS ORDERED: PHYTONADIONE 5 MG in SODIUM CHLORIDE 0.9% 50 ML IV ONE (04:32)
--- NOTE | 2019-04-04 04:53 | Emergency Department Note ---
ED Visit Note I saw this patient in conjunction with Ernestina Becerril PA-C. I agree with her decision making and treatment plan. I follow along very closely as this was a critical care patient. I discussed the case with the hand dry cleaner and they will take her to the ICU. .
--- NOTE | 2019-04-04 05:04 | History & Physical Report ---
Date of Service April 04, 2019 Assessment & Plan (1) Hematemesis without nausea: Admit to the intensive care unit- Upper GI bleed/hematemesis/symptomatic anemia/hypotension due to blood loss- Continue Protonix drip. May stop octreotide drip, as no known history of varices. Transfuse total 3 units PRBCs, with one already transfused in the ED. H&H's every 6 hours. Follow serial CBC with differential, chemistry, magnesium. Present on Admission?: Yes (2) Anemia: As above. Present on Admission?: Yes (3) Hypotension due to blood loss: If systolic blood pressure does not respond to transfusions, will start Levophed drip. Present on Admission?: Yes (4) Alcohol dependence: Placed on alcohol withdrawal scale with IV Ativan. Present on Admission?: Yes (5) Alcoholic cirrhosis of liver: Alcoholic cirrhosis of liver/coagulopathy- Received vitamin K 10 mg x 1 in the ED. We will repeat INR, and if no response to initial vitamin K, can give additional vitamin K and FFP. Present on Admission?: Yes (6) Tobacco abuse: Cessation counseling Present on Admission?: Yes (7) ETOH abuse: As noted above cessation counseling Present on Admission?: Yes (8) Coagulopathy: As noted above Present on Admission?: Yes (9) C. difficile colitis: Has been on vancomycin 125 mg p.o. 4 times daily. Send stool for C. difficile. Present on Admission?: Yes (10) Depression with anxiety: Hold lexapro and buspirone while NPO Present on Admission?: Yes (11) Admitted to intensive care unit: As noted. Traveling Repair Accountant has been consulted Present on Admission?: Yes History of Present Illness Chief Complaint: The Patient presents to the emergency department with 2 days of generalized abdominal discomfort, especially in the epigastric area. She then notes episodes of vomiting bright red blood that began today. Her reportedly found her covered in coffee-ground emesis, and called EMS, who brought her to the emergency department for assessment. Primary Care Provider: Luzma Colvin DO The patient is a 48-year-old female with a past medical history including alcoholic cirrhosis with ascites, tobacco abuse, alcohol abuse, hyponatremia, anxiety with depression and diabetes mellitus with most recent admission to [facility] from 03/25-03/30/2019 for low back pain and loose stools of 1-1/2 weeks duration, and was diagnosed with C. difficile colitis. She was discharged on vancomycin 125 mg p.o. 4 times daily, and denies any recent issue with frequent stools since discharge. She notes that she had 2 days of development of epigastric and abdominal discomfort, with some emesis during that time, but did not have blood in her vomitus until the day of admission. She continues to deny use of alcohol. In the emergency department, she was found to be hypotensive, with lowest blood pressure 75/49, and received IV fluid boluses, was transfused 1 unit of packed red blood cells, and was started on Protonix drip and octreotide drip. Patient will be admitted to the ICU for further care. Allergies Allergy/AdvReac Type Severity Reaction Status Date / Time Bactrim Allergy Severe CHEST PAIN Unverified 12/26/16 19:35 sulfamethoxazole Allergy Severe CHEST PAIN Verified 04/02/19 04:20 trimethoprim Allergy Severe CHEST PAIN Verified 04/02/19 04:20 Home Medications Home Medications Medication Instructions Recorded Confirmed Type albuterol sulfate 2.5 mg/3 mL 2.5 mg INHALATION Q4H PRN #1 ml 03/15/19 04/04/19 History (0.083 %) solution for nebulization folic acid 1 mg tablet 1 mg PO DAILY #30 tab 03/15/19 04/04/19 Rx multivitamin tablet 1 tab PO DAILY 03/15/19 04/04/19 History mecobalamin (vitamin B12) 1,000 1,000 mcg SL DAILY #30 tab 03/16/19 04/04/19 Rx mcg disintegrating tablet,sublingual thiamine HCl (vitamin B1) 100 mg 100 mg PO DAILY #30 tab 03/16/19 04/04/19 Rx tablet buspirone 5 mg PO DAILY #30 tab 03/22/19 04/04/19 Rx escitalopram oxalate 5 mg PO DAILY #30 tab 03/22/19 04/04/19 Rx spironolactone 50 mg PO QAM #60 tab 03/22/19 04/04/19 Rx diclofenac sodium [Voltaren] 4 gm TOP QID #100 gm 03/30/19 04/04/19 Rx vancomycin 125 mg PO Q6H 6 Days #24 cap 03/30/19 04/04/19 Rx vancomycin [Firvanq] 125 mg PO QID 04/02/19 04/04/19 History Past Med/Surg History Medical History Pneumonia (Acute) Neuropathy (Acute) Heartburn (Acute) Depression with anxiety (Acute) Alcohol dependence (Acute) Alcoholic cirrhosis of liver Hyponatremia Herpes simplex Tobacco abuse ETOH abuse Prolonged INR Acute anemia Elevated LFTs Ascites due to alcoholic cirrhosis Hypomagnesemia Hypokalemia Anxiety and depression Hypomagnesemia Hypoalbuminemia Diabetes Heart disease Abdominal distension Abdominal pain Acute electrocardiogram changes C. difficile colitis Dehydration E. coli UTI Elevated WBC count Leukocytosis Leukocytosis Lumbar pain Nausea vomiting and diarrhea Rash Surgical History H/O dilation and curettage History of abdominal paracentesis 3L in February 2019 Previous section Social History Preferred Language: Sami Communication Ability: Effective Beliefs That Will Affect Care: None marital status: Current Living Situation: Spouse Current Living Situation Comment: , "his son, my dtr, her dtr and my son" current occupational status: unemployed Other Information That Helps Us Care for You: No Feels Safe at Home: Yes Safety Concerns: Feels Safe At This Time Smoking Status: Current every day smoker Tobacco Type: cigarettes Cigarettes Per Day: 10 Do You Dip or Chew Tobacco: No Second Hand Exposure: No Tobacco Cessation Education Requested by Patient: No Hx Alcohol Use: No Hx Substance Use: No Review of Systems Review of Systems: The patient denies chest pain, palpitations, shortness of breath, dyspnea on exertion, cough, fevers, chills, sweats, diarrhea , constipation, blood in urine or stool, dysuria, urinary frequency or urgency,loss of consciousness, rash, focal weakness, numbness or tingling in arms or legs, generalized arthralgias or myalgias, back or neck pain, or night sweats. The review of systems is otherwise negative other than for that already noted above, and at least 10 systems have been reviewed. Physical Exam Physical Exam: The patient is awake, alert and oriented 3, normocephalic and atraumatic, lying in bed and in no acute distress. HEENT--PERRL, EOMI, mucous membranes and oropharynx dry. Neck--supple. No JVD. No bruits. Thyroid normal, trachea midline, no adenopathy. Heart--normal S1 and S2. No murmurs, rubs or gallops. Lungs--clear bilaterally, no respiratory distress, no accessory muscle use. Abdomen--normal bowel sounds and soft. Mild generalized tenderness. Nondistended. Extremities--no cyanosis or clubbing. There is bilateral pretibial 1+ pitting edema. There are good distal pulses b/l. Dermatologic--normal skin turgor, normal color, no abnormal lymph nodes, no rash. Neurologic--cranial nerves II through XII grossly intact. Rheumatologic--normal range of motion. Psychiatric--normal affect. Results & Data Vital Signs (Past 12 Hours) Vital Signs Temp Pulse Resp BP Pulse Ox 04/04/19 04:55 97.9 F 91 H 14 86/58 L 100 04/04/19 04:30 97.5 F L 95 H 21 91/57 L 100 04/04/19 04:27 91 H 20 85/60 L 99 04/04/19 04:16 94 H 18 94/61 L 100 04/04/19 04:15 94 H 17 100 04/04/19 04:13 94 H 20 90/64 L 100 04/04/19 04:01 85 19 77/47 L 93 04/04/19 04:00 83 20 97 04/04/19 03:46 90 20 75/47 L 100 04/04/19 03:45 91 H 16 100 04/04/19 03:30 95 H 20 100 04/04/19 03:10 98.1 F 96 H 20 75/49 L 96 Laboratory Results Laboratory Results WBC 34.42 K/uL (4.8-10.8) H* 04/04/19 03:23 RBC 2.24 M/uL (4.2-5.4) L 04/04/19 03:23 Hgb 7.1 g/dL (12.0-16.0) L 04/04/19 03:23 POC Hgb 6.5 g/dl (12.0-16.0) L* 04/04/19 03:33 Hct 20.6 % (37-47) L* 04/04/19 03:23 POC Hct 19 % (37-47) L* 04/04/19 03:33 MCV 92.0 fL (80-100) 04/04/19 03:23 MCH 31.7 pg (25-34) 04/04/19 03:23 MCHC 34.5 g/dL (32-36) 04/04/19 03:23 RDW Std Deviation 52.3 fL (36.4-46.3) H 04/04/19 03:23 RDW Coeff of Spenser 15.5 % (11.5-14.5) H 04/04/19 03:23 Plt Count 345 K/uL (130-400) 04/04/19 03:23 MPV 9.8 fL (7.4-10.4) 04/04/19 03:23 Immature Gran % (Auto) 1.5 % 04/04/19 03:23 Neut % (Auto) 81.1 % 04/04/19 03:23 Lymph % (Auto) 11.7 % 04/04/19 03:23 Pleasants % (Auto) 5.0 % 04/04/19 03:23 Eos % (Auto) 0.3 % 04/04/19 03:23 Baso % (Auto) 0.4 % 04/04/19 03:23 Immature Gran # (Auto) 0.51 K/uL (0.00-0.02) H 04/04/19 03:23 Neut # (Auto) 27.96 K/uL (1.4-6.5) H 04/04/19 03:23 Lymph # (Auto) 4.01 K/uL (1.2-3.4) H 04/04/19 03:23 Pleasants # (Auto) 1.71 K/uL (0.11-0.59) H 04/04/19 03:23 Eos # (Auto) 0.09 K/uL (0-0.5) 04/04/19 03:23 Baso # (Auto) 0.14 K/uL (0-0.2) 04/04/19 03:23 RBC Morphology Unremarkable 04/04/19 03:23 PT 17.0 Seconds (9.0-12.0) H 04/04/19 03:23 INR 1.7 (0.9-1.1) H 04/04/19 03:23 APTT 37.0 Seconds (21.0-31.0) H 04/04/19 03:23 PTT Ratio 1.4 04/04/19 03:23 POC Sodium 136 mEq/L (135-144) 04/04/19 03:33 Sodium 137 mmol/L (136-145) 04/04/19 03:23 POC Potassium 5.1 mEq/L (3.3-5.0) H 04/04/19 03:33 Potassium 5.1 mmol/L (3.5-5.1) 04/04/19 03:23 POC Chloride 108 mEq/L (101-112) 04/04/19 03:33 Chloride 112 mmol/L (98-107) H 04/04/19 03:23 Carbon Dioxide 20 mmol/L (21-32) L 04/04/19 03:23 POC Total CO2 17 mEq/l (24-31) L 04/04/19 03:33 Anion Gap 5.0 (3-11) 04/04/19 03:23 POC Anion Gap 17.0 mmol/L (16-25) 04/04/19 03:33 POC BUN 47 mg/dl (7-18) H 04/04/19 03:33 BUN 51 mg/dl (7-18) H 04/04/19 03:23 Creatinine 1.90 mg/dl (0.6-1.2) H 04/04/19 03:23 POC Creatinine 2.1 mg/dl (0.6-1.3) H 04/04/19 03:33 Est Cr Clr Drug Dosing Not Reportable 04/04/19 03:23 Est GFR ( Amer) 35.5 04/04/19 03:23 Est GFR (Non-Af Amer) 30.6 04/04/19 03:23 BUN/Creatinine Ratio 26.7 (10-20) H 04/04/19 03:23 Glucose 114 mg/dl (70-99) H 04/04/19 03:23 POC Glucose (other) 118 mg/dl (70-99) H 04/04/19 03:33 Calcium 7.6 mg/dl (8.5-10.1) L 04/04/19 03:23 POC Ioniz Calcium Cresencio 1.24 mmol/l (1.12-1.32) 04/04/19 03:33 Magnesium 1.6 mg/dl (1.8-2.4) L 04/04/19 03:23 Total Bilirubin 0.6 mg/dl (0.2-1) 04/04/19 03:23 AST 45 U/L (15-37) H 04/04/19 03:23 ALT 22 U/L (12-78) 04/04/19 03:23 Alkaline Phosphatase 138 U/L (45-117) H 04/04/19 03:23 Troponin I < 0.015 ng/ml (0-0.045) 04/04/19 03:23 Total Protein 5.0 gm/dl (6.4-8.2) L 04/04/19 03:23 Albumin 1.5 gm/dl (3.4-5.0) L 04/04/19 03:23 Globulin 3.5 gm/dl (2.5-4.0) 04/04/19 03:23 Albumin/Globulin Ratio 0.4 (0.9-2) L 04/04/19 03:23 Ethyl Alcohol mg/dL < 3.0 mg/dl (0-3) 04/04/19 03:23 Blood Type O Positive 04/04/19 03:23 Antibody Screen NEGATIVE 04/04/19 03:23 Crossmatch See Detail 04/04/19 03:23 Code Status & VTE Plan Code Status Full code VTE Prophylaxis Plan VTE Prophylaxis will be ordered: Yes Critical Care Time Total Critical Care Time: 60 Total critical care time was 60 minutes PG Care Time/CCT Total # of Minutes Spent Total Time Spent with Patient: Total time spent is greater than 50% in coordination of care (as documented) at patient's floor/unit and/or counseling patient: Total Critical Care Time: 60
[2019-04-04] MEDS ORDERED: ICU PROTOCOL FOR HYPERGLYCEMIA PRN (06:14)
[2019-04-04] MEDS ORDERED: LORazepam 3 MG/6 ML VIAL IV PRN (06:14)
[2019-04-04] MEDS ORDERED: ATIVAN IV ALCOHOL WITHDRAWL IV SCH (06:14)
[2019-04-04] MEDS ORDERED: LORazepam 1 MG/2 ML VIAL IV PRN (06:14)
[2019-04-04] MEDS ORDERED: LORazepam 2 MG/4 ML VIAL IV PRN (06:14)
[2019-04-04] MEDS ORDERED: SODIUM CHLORIDE 0.9% 1000ML 500 ML IV ONE (07:03)
--- NOTE | 2019-04-04 07:12 | XRay Report ---
XR chest 1V portable CLINICAL HISTORY: Hematemesis COMPARISON STUDY: Chest radiograph March 25, 2019. FINDINGS: Lung volumes are diminished. Band-like left lower lobe opacity favors atelectasis. There is no pneumothorax or pleural effusion. There is no consolidation or evidence for pulmonary edema. Nipp le shadows project over the lower hemithoraces. Cardiac size is normal. Mediastinal contours are norm al. IMPRESSION: Low lung volumes with left basilar atelectasis. No acute cardiopulmonary findings. Electronically signed by: Abisai Escalona M.D. 04/04/2019 7:11 AM
[2019-04-04] MEDS ORDERED: ALBUMIN 25% 50 ML IV ONE (08:00)
[2019-04-04] MEDS: MAGNESIUM SULFATE / D5W 1 GM/100 ML BAG IV SCH ×2 (08:53→10:33)
[2019-04-04] MEDS ORDERED: cefTRIAXone SODIUM 1,000 MG in DEXTROSE 5% 50 ML IV SCH (09:00)
[2019-04-04] MEDS ORDERED: cefTRIAXone SODIUM 2,000 MG in DEXTROSE 5% 50 ML IV SCH ×2 (09:03→10:00)
--- NOTE | 2019-04-04 09:04 | Gastrointestinal Consultation ---
Date of Consultation April 04, 2019 Assessment & Plan (1) Alcoholic cirrhosis of liver: (2) C. difficile colitis: (3) Acute GI bleeding: Pt is a 48 y/o female w hx of ETOH cirrhosis (sober x 2 weeks), complicated by ascites developed who is currently admitted for GI bleed. Started vomiting some fruits this AM which develped to black/coffee ground vomitus, is having also black liquid stools per RN. H/H 6.5/, INR 1.7, Plt 345. She had received 2U PRBC transfusion, Vit K 5mg IV x 1 dose, PPI bolus and gtt, unfortunately Octreotide gtt not started due to lack of IV access. NO hx of endoscopic evaluation. She's been on Ibuprofen daily for abd pain symptoms. - Continue blood transfusion, monitor H/H closely - Central line to be placed by ICU team. Meanwhile, we have asked ICU team to change PPI gtt to bolus IV form and infuse Octreotide gtt. - ICU team will perform paracentesis and check for SBP. Ceftriaxone 2g IV for SBP prophylaxis ordered. Will help w diuretic adjustments once her renal function is improved. - Keep pt NPO, will plan for EGD eval to r/o possible PUD, gastritis, ? variceal bleed though her presentation given lack of demetria hematemesis makes it less suspicious for variceal bleed. - Unsure if she's been taking her Vancomycin (had 6 days left from prior DC on 03/30). Will recheck her stools for Cdiff infection and re-treat if positive. - She had been advised to strictly abstain from ETOH, recommended going back to rehab as previously been successful to be sober x 2yrs. Perhaps case management can help arrange for this prior to her DC. - Upon DC we can help arrange for GI f/u for cirrhosis care; she already has appt to see Dr. Mara Gaona on 05/09/19. Supervising Physician Co-Signing Physician Notes I have performed a history and physical examination of this patient and reviewed the electronic medical record. Specifically, on physical examination there is tense ascites and no asterixis. I have discussed the case with RUBY Zhou. The above note reflects my findings, conclusions, and recommendations. Blas Adams MD History of Present Illness Reason for Consultation: UGI bleed Requesting Physician: Dr. Miguel Ángel Neal Attending Physician: Dr. Blas Adams History of Present Illness Pt is a 48 y/o female w hx of ETOH cirrhosis, complicated by ascites development who was admitted this AM for coffee ground emesis and epigastric pain. She admits last ETOH intake was 2 weeks ago, but been taking Ibuprofen 3 tabs every 4hrs for abd pain symptoms. She started vomiting cantelope and watermelon this morning and then it turned into black colored vomitus. She has hx of Cdiff infection treated w Vancomycin, RNs reports stool currently black liquid like. On admission noted to be hypotensive, BP 80s/50s. H/H 6.5/19. PT/INR 17/1.7, given Vit K 5mg IV x1 dose. BUN/Cr 47/1.9. LFTs: Tbili 0.6, AST 45, ALT 22, AP 138. She was started on PPI bolus and gtt, unable to get started on Octreotide gtt due to lack of IV access. She had received 2 U PRBC transfusion. Repeat H/H due in 1 hr. On exam she's laying in ICU bed, alert, oriented to self and place only. Abd very distended consistent w ascites, generalized TTP. She cannot tell me what diuretics she's on. BP currently 95/60. HR 93. In regards to her cirrhosis care,she's been primarily managed by her PCP (Luzma Polanco). She had been made several appt to [facility] but cancelled appts. She is scheduled to see Dr. Mara Gaona's Hepatology clinic on 05/09/19. She denies every having any endoscopies. Allergies Allergy/AdvReac Type Severity Reaction Status Date / Time Bactrim Allergy Severe CHEST PAIN Unverified 12/26/16 19:35 sulfamethoxazole Allergy Severe CHEST PAIN Verified 04/02/19 04:20 trimethoprim Allergy Severe CHEST PAIN Verified 04/02/19 04:20 Home Medications Home Medications Medication Instructions Recorded Confirmed Type albuterol sulfate 2.5 mg/3 mL 2.5 mg INHALATION Q4H PRN #1 ml 03/15/19 04/04/19 History (0.083 %) solution for nebulization folic acid 1 mg tablet 1 mg PO DAILY #30 tab 03/15/19 04/04/19 Rx multivitamin tablet 1 tab PO DAILY 03/15/19 04/04/19 History mecobalamin (vitamin B12) 1,000 1,000 mcg SL DAILY #30 tab 03/16/19 04/04/19 Rx mcg disintegrating tablet,sublingual thiamine HCl (vitamin B1) 100 mg 100 mg PO DAILY #30 tab 03/16/19 04/04/19 Rx tablet buspirone 5 mg PO DAILY #30 tab 03/22/19 04/04/19 Rx escitalopram oxalate 5 mg PO DAILY #30 tab 03/22/19 04/04/19 Rx spironolactone 50 mg PO QAM #60 tab 03/22/19 04/04/19 Rx diclofenac sodium [Voltaren] 4 gm TOP QID #100 gm 03/30/19 04/04/19 Rx vancomycin 125 mg PO Q6H 6 Days #24 cap 03/30/19 04/04/19 Rx vancomycin [Firvanq] 125 mg PO QID 04/02/19 04/04/19 History Patient History Medical History Pneumonia (Acute) Neuropathy (Acute) Heartburn (Acute) Depression with anxiety (Acute) Alcohol dependence (Acute) Alcoholic cirrhosis of liver Hyponatremia Herpes simplex Tobacco abuse ETOH abuse Prolonged INR Acute anemia Elevated LFTs Ascites due to alcoholic cirrhosis Hypomagnesemia Hypokalemia Anxiety and depression Hypomagnesemia Hypoalbuminemia Diabetes Heart disease Abdominal distension Abdominal pain Acute electrocardiogram changes C. difficile colitis Dehydration E. coli UTI Elevated WBC count Leukocytosis Leukocytosis Lumbar pain Nausea vomiting and diarrhea Rash Surgical History H/O dilation and curettage History of abdominal paracentesis 3L in February 2019 Previous section Family History Sister Drug abuse Father Stroke Hypertension Dyslipidemia (high LDL; low HDL) Tobacco abuse Mother Depression Stroke Hypertension Other No significant family history Social History Preferred Language: Tajik Communication Ability: Impaired Beliefs That Will Affect Care: None marital status: Current Living Situation: Spouse Current Living Situation Comment: , "his son, my dtr, her dtr and my son" current occupational status: unemployed Other Information That Helps Us Care for You: No Feels Safe at Home: Yes Safety Concerns: Feels Safe At This Time Smoking Status: Current every day smoker Tobacco Type: cigarettes Cigarettes Per Day: 10 Do You Dip or Chew Tobacco: No Second Hand Exposure: No Tobacco Cessation Education Requested by Patient: No Hx Alcohol Use: No Hx Substance Use: No Review of Systems Review of Systems: All systems reviewed & are unremarkable except as noted in HPI & below Physical Exam Constitutional: + ill appearing, + thin, + frail appearing and cooperative Eyes: PERRL, conjunctivae normal, anicteric sclerae ENMT: external ear and nose normal, oropharynx normal Respiratory: normal respiratory effort, lungs clear to auscultation Cardiovascular: RRR, no murmur, no edema Gastrointestinal (Abdomen): Inspection/Auscultation: + abdomen distended and + hypoactive bowel sounds Percussion/Palpation: + abdomen tender Skin: + spider angiomatas on upper chest Neurologic: Motor/Sensory: no asterixis Psychiatric: Orientation: alert, oriented to person, oriented to place and cooperative Affect: + flat affect Lymphatic: + 2 pitting edema on bilateral LE Results & Data Vital Signs (Past 12 Hours) Vital Signs Temp Pulse Pulse Resp BP BP Pulse Ox 04/04/19 07:03 36.9 C 93 H 15 80/56 L 100 04/04/19 06:40 36.5 C 93 H 14 81/53 L 04/04/19 06:15 94 H 13 98 04/04/19 06:14 92 H 14 71/49 L 91 04/04/19 06:00 93 H 14 100 04/04/19 05:45 94 H 20 100 04/04/19 05:42 93 H 19 147/119 H 96 04/04/19 05:40 36.5 C 93 H 19 147/119 H 96 04/04/19 05:38 22 04/04/19 05:30 36.5 C 91 H 20 147/119 H 100 04/04/19 05:24 90 18 87/62 L 100 04/04/19 05:10 36.6 C 92 H 17 87/54 L 100 04/04/19 04:55 36.6 C 91 H 14 86/58 L 100 04/04/19 04:30 36.4 C L 95 H 21 91/57 L 100 04/04/19 04:27 91 H 20 85/60 L 99 04/04/19 04:16 94 H 18 94/61 L 100 04/04/19 04:15 94 H 17 100 04/04/19 04:13 94 H 20 90/64 L 100 04/04/19 04:01 85 19 77/47 L 93 04/04/19 04:00 83 20 97 04/04/19 03:46 90 20 75/47 L 100 04/04/19 03:45 91 H 16 100 04/04/19 03:30 95 H 20 100 04/04/19 03:10 36.7 C 96 H 20 75/49 L 96
[2019-04-04] MEDS ORDERED: HYDROmorphone INJ 0.5 MG/0.5 ML SYR IV STA (09:16)
[2019-04-04 10:05] LABS: Hematocrit (blood only) 26.7 % (37-47); Hemoglobin 9.2 g/dL (12.0-16.0)
[2019-04-04] MEDS: ALBUMIN 5% 250 ML IV SCH ×3 (10:15→10:46)
--- NOTE | 2019-04-04 11:32 | Procedure Note ---
Procedure Note Date of Service April 04, 2019 Procedure date: Noted above Procedure: Right IJ Central Line Placement Pre-procedure Diagnosis: Need for intravenous access, unable to place peripheral IV Post-procedure Diagnosis: same as above Prior to Procedure: Informed Consent: The risks, benefits, indications, potential complications, and alternatives were explained to the patient. She patient consented and informed consent obtained. Attending Staff: Dr. Evangelista Skin Prep: Chlorhexidine Anesthesia: 5 mL 1% lidocaine without epinephrine The identity of the patient was confirmed. Description of Procedure: The patient was placed in the supine position. After sterile prep and sterile drape utilizing standard sterile technique, the superficial skin of the right IJ was anesthetized. The target vein was identified via dynamic ultrasound guidance. A triple lumen central line was introduced over a wire via the Seldinger technique, then sutured in place. Good blood flow was noted from all ports. A sterile dressing was then applied. A chest x-ray was ordered to confirm placement. Complications: None Estimated blood loss: Trace Patient tolerated the procedure well. I was present throughout the entire procedure supervising Dr. Funk. Coding Resident Activity Tracking Resident Involvement: Resident Care Provided Care Provided: [facility] Medicine
--- NOTE | 2019-04-04 11:33 | XRay Report ---
XR chest 1V portable CLINICAL HISTORY: confirm central line position COMPARISON STUDY: Chest radiograph April 04, 2019 at 3:22 AM. FINDINGS: There is no pneumothorax following placement of a right internal jugular central line. Cath eter tip projects over the cavoatrial junction. Minimal left basilar opacity is unchanged. This favor s atelectasis. IMPRESSION: No pneumothorax following placement of a right internal jugular central line. Tip project s over the cavoatrial junction. Electronically signed by: Abisai Escalona M.D. 04/04/2019 11:31 AM
--- NOTE | 2019-04-04 11:34 | Critical Care Consultation ---
Date of Consultation April 04, 2019 Assessment & Plan (1) Acute GI bleeding: Impression: 1. Upper GI bleed, esophageal variceal bleed versus gastropathy versus gastritis secondary to alcoholism and NSAID. 2. Liver cirrhosis, child Camarena 10, meld score of 19. 3. Portal hypertension with recurrent ascites. 4. History of alcoholism. 5. Nicotine abuse. 6. No evidence of HE. Plan: 1. Blood transfusion. 2. Patient has poor IV access, central line was placed in the right IJ. 3. Paracentesis. 4. Albumin infusion was given. 5. Serial H&H. 6. Transfuse for hematocrit of 21. 7. GI consult appreciated. 8. EGD today. 9. Continue octreotide drip. 10. Continue Protonix. 11. Avoid alcohol and NSAID. 12. No need for DVT prophylaxis at this time. 13. N.p.o. 14. IV fluid. 15. Peritoneal fluid analysis. 16. Chest x-ray was done for central line placement, will review. 17. Discussed with the staff on rounds in details, critical care time spent with the patient was 45 minutes excluding procedure times. 18. Rocephin was given tentatively for possible esophageal varices. 19. Patient carries a diagnosis of C. difficile colitis, but she is antigen negative on this surveillance. 20. Discontinue C. difficile isolation and keep the patient on MRSA isolation. History of Present Illness Reason for Consultation: GI bleeding Requesting Physician: Dr. Neal Attending Physician: Miguel Ángel Neal, DO History of Present Illness Dear Dr. Neal: Thank you for your kind referral of Judi to critical care service. This is 48-year-old female with history of liver cirrhosis, meld score 19, child Camarena 10, history of alcoholism, last drink was 2 weeks ago, history of portal hypertension with previous ascites status post paracentesis with 5 L be removed according to the patient 2 weeks ago, history of active smoking, and recently has been using Motrin for her back pain, presented to the hospital with hematemesis x1, her blood pressure was on the soft side with a blood pressure systolic between 70-90, the patient was maintaining her airway, did have a melena, but appeared pale and chronically ill. The patient started on large IV bore fluid resuscitation and then transfused 2 units of blood, her INR came back 1.9 but currently she is not showing any signs of active bleeding. The patient did not have any chest pain, but she did have diffuse abdominal pain due to abdominal distention. There was no nausea or vomiting while she was in the ICU. The abdomen was diffusely tender mainly because of the distention. She was emotional when I was getting the review of system from her. She denies any weight loss, she does have poor appetite, no shortness of breath, no orthopnea, no nocturnal symptoms and no cough. Her past medical history as mentioned above. She has history of paracentesis done on her the past, she did have EGD in the past without evidence of esophageal varices, I did not have the report of this procedure from previous. She is active smoker down to 1 cigarette/day, she is active drinker up until 2 weeks ago, her alcohol level was nondetectable on arrival, she lives with her family. Her family history are not contributing to her current illness. Allergies Allergy/AdvReac Type Severity Reaction Status Date / Time Bactrim Allergy Severe CHEST PAIN Unverified 12/26/16 19:35 sulfamethoxazole Allergy Severe CHEST PAIN Verified 04/02/19 04:20 trimethoprim Allergy Severe CHEST PAIN Verified 04/02/19 04:20 Home Medications Home Medications Medication Instructions Recorded Confirmed Type albuterol sulfate 2.5 mg/3 mL 2.5 mg INHALATION Q4H PRN #1 ml 03/15/19 04/04/19 History (0.083 %) solution for nebulization folic acid 1 mg tablet 1 mg PO DAILY #30 tab 03/15/19 04/04/19 Rx multivitamin tablet 1 tab PO DAILY 03/15/19 04/04/19 History mecobalamin (vitamin B12) 1,000 1,000 mcg SL DAILY #30 tab 03/16/19 04/04/19 Rx mcg disintegrating tablet,sublingual thiamine HCl (vitamin B1) 100 mg 100 mg PO DAILY #30 tab 03/16/19 04/04/19 Rx tablet buspirone 5 mg PO DAILY #30 tab 03/22/19 04/04/19 Rx escitalopram oxalate 5 mg PO DAILY #30 tab 03/22/19 04/04/19 Rx spironolactone 50 mg PO QAM #60 tab 03/22/19 04/04/19 Rx diclofenac sodium [Voltaren] 4 gm TOP QID #100 gm 03/30/19 04/04/19 Rx vancomycin 125 mg PO Q6H 6 Days #24 cap 03/30/19 04/04/19 Rx vancomycin [Firvanq] 125 mg PO QID 04/02/19 04/04/19 History Patient History Medical History Pneumonia (Acute) Neuropathy (Acute) Heartburn (Acute) Depression with anxiety (Acute) Alcohol dependence (Acute) Alcoholic cirrhosis of liver Hyponatremia Herpes simplex Tobacco abuse ETOH abuse Prolonged INR Acute anemia Elevated LFTs Ascites due to alcoholic cirrhosis Hypomagnesemia Hypokalemia Anxiety and depression Hypomagnesemia Hypoalbuminemia Diabetes Heart disease Abdominal distension Abdominal pain Acute electrocardiogram changes C. difficile colitis Dehydration E. coli UTI Elevated WBC count Leukocytosis Leukocytosis Lumbar pain Nausea vomiting and diarrhea Rash Surgical History H/O dilation and curettage History of abdominal paracentesis 3L in February 2019 Previous section Family History Sister Drug abuse Father Stroke Hypertension Dyslipidemia (high LDL; low HDL) Tobacco abuse Mother Depression Stroke Hypertension Other No significant family history Social History Preferred Language: Syriac Communication Ability: Effective Beliefs That Will Affect Care: None marital status: Current Living Situation: Spouse Current Living Situation Comment: , "his son, my dtr, her dtr and my son" current occupational status: unemployed Other Information That Helps Us Care for You: No Feels Safe at Home: Yes Safety Concerns: Feels Safe At This Time Smoking Status: Current every day smoker Tobacco Type: cigarettes Cigarettes Per Day: 10 Do You Dip or Chew Tobacco: No Second Hand Exposure: No Tobacco Cessation Education Requested by Patient: No Hx Alcohol Use: No Hx Substance Use: No Review of Systems Review of Systems: Review of system including 14 systems has been reviewed, unremarkable except for the above mentioned in the first section. Physical Exam Physical Exam: Physical exam revealed 48-year-old female, pale, cachectic in the periphery, with distended abdomen, S1-S2, systolic ejection murmur, regular rate and rhythm, lungs with distant breath sounds, abdomen is distended and diffusely tender without rebound, Madosa's head, no edema in the periphery, neurologically without asterixis, no tremor, mentating very well, no evidence of tremor. Nonfocal. Oral mucosa without cyanosis. No visual disturbances at this point. She is not altered with her mental status. Results & Data Vital Signs (Past 12 Hours) Vital Signs Temp Pulse Pulse Resp BP BP Pulse Ox 04/04/19 07:03 36.9 C 93 H 15 80/56 L 100 04/04/19 06:40 36.5 C 93 H 14 81/53 L 100 04/04/19 06:15 94 H 13 98 04/04/19 06:14 92 H 14 71/49 L 91 04/04/19 06:00 93 H 14 100 04/04/19 05:45 94 H 20 100 04/04/19 05:42 93 H 19 147/119 H 96 04/04/19 05:40 36.5 C 93 H 19 147/119 H 96 04/04/19 05:38 22 04/04/19 05:30 36.5 C 91 H 20 147/119 H 100 04/04/19 05:24 90 18 87/62 L 100 04/04/19 05:10 36.6 C 92 H 17 87/54 L 100 04/04/19 04:55 36.6 C 91 H 14 86/58 L 100 04/04/19 04:30 36.4 C L 95 H 21 91/57 L 100 04/04/19 04:27 91 H 20 85/60 L 99 04/04/19 04:16 94 H 18 94/61 L 100 04/04/19 04:15 94 H 17 100 04/04/19 04:13 94 H 20 90/64 L 100 04/04/19 04:01 85 19 77/47 L 93 04/04/19 04:00 83 20 97 04/04/19 03:46 90 20 75/47 L 100 04/04/19 03:45 91 H 16 100 04/04/19 03:30 95 H 20 100 04/04/19 03:10 36.7 C 96 H 20 75/49 L 96 Laboratory Results Labs were reviewed personally. Hematocrit has been stable after transfusion. BUN and creatinine ratio is elevated. INR is elevated at 1.9 and her bilirubin is slightly elevated. Transaminase is also slightly elevated. Diagnostic Findings Ultrasound done at the bedside showed significant amount of ascites, dilated gallbladder, no evidence of debris's in the peritoneum, ultrasound of the right IJ showed clearly the overriding right IJ over the right carotid, other imaging were reviewed as well personally. PG Care Time/CCT Critical Care Time: Yes Total Critical Care Time: 45
--- NOTE | 2019-04-04 11:36 | Procedure Note ---
Procedure Note Date of Service April 04, 2019 Note Patient has central line placement, the need for IV access in a patient with GI bleeding, consent obtained from the patient, risk and benefit explained the details, agreed to the procedure. The patient placed in supine position, ultrasound was used, clearly identified the IJ, under strict sterile field, using anterior approach, the skin was prepped with chlorhexidine, injected with 5 mL of 1% lidocaine, using Seldinger technique, no scalpel, only dilator, the line was placed to 15 cm, all ports were flushed with normal saline, secured with 2 surgical sutures, covered with surgical dressing, chest x-ray is pending we will review. The procedure done by Dr. Funk, and I was present throughout the entire procedure. No immediate complication and the patient tolerated the procedure very well. Thank you Coding CPT Codes Tubes, Drains, and Vasc Access - Tubes, Drains, and Vasc Access: Place catheter in vein superior or inferior vena cava ([id number])
--- NOTE | 2019-04-04 11:38 | Procedure Note ---
Procedure Note Date of Service April 04, 2019 Note Paracentesis was done due to patient with history of liver cirrhosis, portal hypertension and recurrent ascites, the patient was placed in supine position, under ultrasound guidance, under strict sterile field, using Seldinger technique, it was noted at the periumbilical area the peritoneal fluid were greater in thickness than 2 cm, the skin was prepped with chlorhexidine, using scalpel, the catheter was introduced into the peritoneal cavity, sample was obtained, and then connected to sequential vacuum bottle, 5 L of yellow fluid was removed, sent for analysis, the catheter was removed, pressure applied at the insertion site for 2 minutes, no immediate complication, tolerated the procedure very well, significant improvement. The patient received 2 doses of albumin during the procedure. The procedure was done by Dr. Funk, and I was present throughout the entire procedure. Thank you Coding CPT Codes Abdomen - Abdominal: Abdominal Paracentesis (diagnostic or therapeutic); Without imaging ([id number])
--- NOTE | 2019-04-04 11:50 | Procedure Note ---
Procedure Note Date of Service April 04, 2019 Procedure date: Noted above Procedure: Paracentesis Pre-procedure Diagnosis: Recurrent ascites, liver cirrhosis, portal hypertension Post-procedure Diagnosis: same as above Prior to Procedure: Informed Consent: The risks, benefits, indications, potential complications, and alternatives were explained to the patient. She patient consented and informed consent obtained. Attending Staff: Dr. Evangelista Skin Prep: Chlorhexidine Anesthesia: 10 mL 1% lidocaine without epinephrine The identity of the patient was confirmed. Description of Procedure: The patient was placed in the supine position. The ascitic fluid was visualized using dynamic ultrasound. The skin was prepped with chlorhexidine. After sterile prep and sterile drape utilizing standard sterile technique, the area was anesthetized with lidocaine. Using the Seldinger technique and a scalpel, the catheter was introduced into the peritoneal cavity. Straw colored fluid was aspirated, and the catheter was connected to a vacuum bottle. 5L of straw colored fluid was removed and sent for analysis. The catheter was removed. Pressure was applied at the insertion site, and a band-aid was applied overtop. Complications: None Estimated blood loss: Trace Patient tolerated the procedure well. Coding Resident Activity Tracking Resident Involvement: Resident Care Provided Care Provided: [facility]
[2019-04-04] MEDS ORDERED: ALBUMIN HUMAN 25% 12.5 GM/50 ML VIAL IV ONE (13:15)
--- NOTE | 2019-04-04 13:41 | Anesthesiology Consultation ---
Date of Service April 04, 2019 Assessment & Plan Chart Review Chart Review: Acceptable Risk for Surgery Consults Requested none History Surgery Operation Date: 04/04/19 08:30 Proposed Procedures p Esophagogastroduodenoscopy Dr Julien - Blas Adams MD Height/Weight Height: 5 ft Weight: 48.5 kg Allergies Allergy/AdvReac Type Severity Reaction Status Date / Time Bactrim Allergy Severe CHEST PAIN Unverified 12/26/16 19:35 sulfamethoxazole Allergy Severe CHEST PAIN Verified 04/02/19 04:20 trimethoprim Allergy Severe CHEST PAIN Verified 04/02/19 04:20 Medications Home Medications Medication Instructions Recorded Confirmed Last Taken albuterol sulfate 2.5 mg/3 mL 2.5 mg INHALATION Q4H PRN #1 ml 03/15/19 04/04/19 03/24/19 (0.083 %) solution for nebulization folic acid 1 mg tablet 1 mg PO DAILY #30 tab 03/15/19 04/04/19 03/24/19 multivitamin tablet 1 tab PO DAILY 03/15/19 04/04/19 03/24/19 mecobalamin (vitamin B12) 1,000 1,000 mcg SL DAILY #30 tab 03/16/19 04/04/19 03/24/19 mcg disintegrating tablet,sublingual thiamine HCl (vitamin B1) 100 mg 100 mg PO DAILY #30 tab 03/16/19 04/04/19 tablet buspirone 5 mg PO DAILY #30 tab 03/22/19 04/04/19 03/24/19 escitalopram oxalate 5 mg PO DAILY #30 tab 03/22/19 04/04/19 03/24/19 spironolactone 50 mg PO QAM #60 tab 03/22/19 04/04/19 03/24/19 diclofenac sodium [Voltaren] 4 gm TOP QID #100 gm 03/30/19 04/04/19 Unknown vancomycin 125 mg PO Q6H 6 Days #24 cap 03/30/19 04/04/19 Unknown vancomycin [Firvanq] 125 mg PO QID 04/02/19 04/04/19 Unknown Active Medications Generic Name Dose Route Start Last Admin Trade Name Freq PRN Reason Stop Dose Admin Pantoprazole Sodium 40 mg/ 100 mls @ 20 mls/hr 04/04/19 03:45 04/04/19 10:33 Dextrose IV 05/04/19 03:44 20 mls/hr Q5H CHEN Administration Octreotide Acetate 500 mcg/ 105 mls @ 10.5 mls/hr 04/04/19 03:30 04/04/19 04:33 Sodium Chloride IV 05/04/19 03:29 0 mcg/hr .Q10H CHEN 0 mls/hr Infusion 50 MCG/HR Magnesium Sulfate/Dextrose 1 gm in 100 mls @ 100 mls/hr 04/04/19 09:00 04/04/19 11:34 Magnesium Sulfate / D5w IV 04/04/19 18:00 Infused TODAY@0900,1000 CHEN Infusion Ceftriaxone Sodium 2,000 mg/ 70 mls @ 140 mls/hr 04/04/19 10:00 04/04/19 11:12 Dextrose IV 04/14/19 09:59 Infused Q24H CHEN Infusion Past Medical History Medical History Pneumonia (Acute) Neuropathy (Acute) Heartburn (Acute) Depression with anxiety (Acute) Alcohol dependence (Acute) Alcoholic cirrhosis of liver Hyponatremia Herpes simplex Tobacco abuse ETOH abuse Prolonged INR Acute anemia Elevated LFTs Ascites due to alcoholic cirrhosis Hypomagnesemia Hypokalemia Anxiety and depression Hypomagnesemia Hypoalbuminemia Diabetes Heart disease Abdominal distension Abdominal pain Acute electrocardiogram changes C. difficile colitis Dehydration E. coli UTI Elevated WBC count Leukocytosis Leukocytosis Lumbar pain Nausea vomiting and diarrhea Rash Past Family History Family History Sister Drug abuse Father Stroke Hypertension Dyslipidemia (high LDL; low HDL) Tobacco abuse Mother Depression Stroke Hypertension Other No significant family history Past Surgical History Surgical History H/O dilation and curettage History of abdominal paracentesis 3L in February 2019 Previous section Social History Smoking Status: Current every day smoker tobacco type: cigarettes Smoking cigarettes per day: 10 Do You Dip or Chew Tobacco: No Hx Alcohol Use: No Alcohol type: beer and hard liquor alcohol intake frequency: other Alcohol Intake Frequency Comment: Quit 2 weeks ago Hx Substance Use: No Physical Exam Vital Signs Last Vital Signs Temp 36.8 C 04/04/19 12:00 Pulse 85 04/04/19 13:00 Resp 23 04/04/19 13:00 BP 86/53 L 04/04/19 13:00 Pulse Ox 100 04/04/19 13:00 Testing Laboratory Results 04/04/19 09:58 04/04/19 03:23 PT 17.0 Seconds (9.0-12.0) H 04/04/19 03:23 INR 1.7 (0.9-1.1) H 04/04/19 03:23 APTT 37.0 Seconds (21.0-31.0) H 04/04/19 03:23 Blood Type O Positive 04/04/19 03:23 Antibody Screen NEGATIVE 04/04/19 03:23 04/04/19 04/04/19 13:01 03:33 POC Glucose 103 H POC Glucose (other) 118 H
[2019-04-04] MEDS ORDERED: LIDOCAINE HCL 2% 2 ML VIAL/AMP(20MG/ML) INFIL ONE (14:24)
[2019-04-04] MEDS ORDERED: PROPOFOL IV EMULSION 10 MG/ML 20 ML VIAL IV ONE (14:24)
[2019-04-04] MEDS ORDERED: KETAMINE HCL INJ 50 MG/ML 10 ML VIAL ONE (14:24)
[2019-04-04] MEDS ORDERED: MIDAZOLAM HCL 1 MG/ML 2ML VIAL ONE (14:25)
--- NOTE | 2019-04-04 14:48 | GI REPORT ---
Patient Name: Judi Nunn Procedure Date: 04/04/2019 2:30 PM Date of : 1970 Admit Type: Inpatient Age: 48 Gender: Female Attending MD: Blas Adams MD Procedure: Upper GI endoscopy Providers: Blas Adams MD Referring MD: Miguel Ángel Neal Indications: Coffee-ground emesis, Melena, Alcoholic cirrhosis with ascites Medicines: Monitored Anesthesia Care Complications: No immediate complications. Estimated blood loss: None. Estimated Blood Loss: Estimated blood loss: none. Procedure: Pre-Anesthesia Assessment: - Prior to the procedure, a History and Physical was performed, and patient medications, allergies and sensitivities were reviewed. The patient's tolerance of previous anesthesia was reviewed. - ASA Grade Assessment: III - A patient with severe systemic disease. After obtaining informed consent, the endoscope was passed under direct vision. Throughout the procedure, the patient's blood pressure, pulse, and oxygen saturations were monitored continuously. The Endoscope was introduced through the mouth, and advanced to the second part of duodenum. The upper GI endoscopy was accomplished with ease. The patient tolerated the procedure well. Findings: One cratered esophageal ulcer with no bleeding was found at the gastroesophageal junction. The lesion was 5 mm in largest dimension. There is no endoscopic evidence of varices in the entire esophagus. Three non-obstructing non-bleeding cratered gastric ulcers of significant severity with adherent clot were found in the gastric antrum. The largest lesion was 40 mm in largest dimension. Clotted blood was found in the gastric body. The examined duodenum was normal. Impression: - Non-bleeding esophageal ulcer. - Non-obstructing non-bleeding gastric ulcers with adherent clot. - Clotted blood in the gastric body. - Normal examined duodenum. - No specimens collected. Recommendation: - Return patient to ICU for ongoing care. Blas Adams M.D. Blas Adams MD 04/04/2019 2:48:07 PM This report has been signed electronically. Note Initiated On: 04/04/2019 2:30 PM Number of Addenda: 0 I attest to the content of the Intraoperative Record and orders documented therein, exceptions below {[id number]}
[2019-04-04 14:58] LABS: Appearance Peritoneal Fluid CLEAR; Color Peritoneal Fluid YELLOW; Mononuclear WBC Peritoneal 62.5 %; Polynuclear WBC Peritoneal 37.5 %; RBC Peritoneal Fluid (A) < 3000 /uL; WBC Peritoneal Fluid (A) 48 /ul (0-300)
[2019-04-04 15:04] LABS: Albumin Peritoneal Fluid < 0.6 g/dl
--- NOTE | 2019-04-04 15:06 | Anesthesiology Progress Note ---
Date of Service April 04, 2019 Anesthesia Post Procedure Vital Signs Vital Signs: Temp Pulse Pulse Resp BP BP Pulse Ox 04/04/19 14:20 36.7 C 81 16 87/58 L 100 04/04/19 13:00 85 23 86/53 L 100 04/04/19 12:00 36.8 C 87 13 88/51 L 99 04/04/19 11:00 87 20 93/54 L 100 04/04/19 10:46 87 18 85/54 L 100 04/04/19 10:30 85 21 87/52 L 100 04/04/19 10:15 79 15 90/56 L 100 04/04/19 10:00 84 14 91/59 L 100 04/04/19 09:00 84 16 91/59 L 100 04/04/19 08:45 36.8 C 83 14 95/64 L 100 04/04/19 08:30 83 13 87/54 L 100 04/04/19 08:00 89 15 82/55 L 100 04/04/19 07:45 36.8 C 91 H 18 92/59 L 100 04/04/19 07:30 36.8 C 89 14 83/57 L 100 04/04/19 07:15 36.9 C 91 H 14 79/50 L 100 04/04/19 07:03 36.9 C 93 H 15 80/56 L 100 04/04/19 06:40 36.5 C 93 H 14 81/53 L 100 04/04/19 06:15 94 H 13 98 04/04/19 06:14 92 H 14 71/49 L 91 04/04/19 06:00 93 H 14 100 04/04/19 05:45 94 H 20 100 04/04/19 05:42 93 H 19 147/119 H 96 04/04/19 05:40 36.5 C 93 H 19 147/119 H 96 04/04/19 05:38 22 04/04/19 05:30 36.5 C 91 H 20 147/119 H 100 04/04/19 05:24 90 18 87/62 L 100 04/04/19 05:10 36.6 C 92 H 17 87/54 L 100 04/04/19 04:55 36.6 C 91 H 14 86/58 L 100 04/04/19 04:30 36.4 C L 95 H 21 91/57 L 100 04/04/19 04:27 91 H 20 85/60 L 99 04/04/19 04:16 94 H 18 94/61 L 100 04/04/19 04:15 94 H 17 100 04/04/19 04:13 94 H 20 90/64 L 100 04/04/19 04:01 85 19 77/47 L 93 04/04/19 04:00 83 20 97 04/04/19 03:46 90 20 75/47 L 100 04/04/19 03:45 91 H 16 100 04/04/19 03:30 95 H 20 100 04/04/19 03:10 36.7 C 96 H 20 75/49 L 96 Pain Intensity Back: Pain Intensity: 4 Transfer of Care Handoff Completed per policy Notes Mental Status: alert / awake / arousable and participated in evaluation Patient Amnestic to Procedure: Yes Nausea / Vomiting: adequately controlled Pain: adequately controlled Airway Patency, RR, SpO2: stable & adequate BP & HR: stable & adequate Hydration State: stable & adequate Anesthetic Complications: no major complications apparent
--- NOTE | 2019-04-04 16:17 | Family Medicine Progress Note ---
Date of Service April 04, 2019 Assessment & Plan (1) Acute GI bleeding: Ms. Nunn is a 48yo with a PMHx significant for alcohol abuse who presents with evidence of an acute GI bleed. Acute GI Bleed -Pt with presenting Hx of coffee ground emesis and H/H of 7.1/20.6. hgb of 6.9 on repeat. -Guaiac positive -Transfused 2U of pRBCs given presentation. -Started on octreotide and protonix, continued. -GI consult, appreciate recs -EGD with NO evidence of esophageal varices. However, nonbleeding esophageal, gastric ulcers noted with clot. -appears to be esophagitis/gastritis. -continue to trend H/H, advise continual alcohol abstinence. Avoid NSAID use. -will continue to monitor Abdominal ascites/Hx of cirrhosis -Pt with meld score of 19 -INR of 1.7, received Vit K. -s/p paracentesis this AM, 5L of yellow fluid removed. -continue rocephin for SBP prophylaxis -will continue to monitor. ELECTROLYTE abnormalities -replace mag, calcium as needed -will continue to monitor ALCOHOL CESSATION -will continue to attempt to agency legal counsel on the need for alcohol rehab. FEN/GI: fluids DVT proph: low risk CODE STATUS: full Supervising Physician Co-Signing Physician Notes I personally examined the patient and verified all [place] points of history and exam, discussed case, and agree with decision making with Dr Barnett. resting comfortably post paracentesis. awaiting EGD at the time i saw her. vitals noted nad breathing unlabored no pallor or icterus. no focal neuro deficits at rest. UGI bleed, acute blood loss anemia, early hypovolemic/hemorrhagic shock present on admission -for EGD soon. conitnue protonix and octreotide pending EGD. transfuse prn. continue supportive care cirrhosis with ascites - s/p repeat paracentesis. coagulopathy - FFP if she rebleeds. Subjective Pt seen in the ICU this AM. States she has had no further episodes of emesis, and was not currently nauseated. States she had one drink since going home after her last discharge. States she is NOT being cared for at home by her mother like she had previously stated before her last discharge. Still currently refusing inpatient rehab of any type. Denies chest pain, SOB, palps but states that her abdomen feels tight. No current episodes of diarrhea. Review of Systems Review of Systems: All systems reviewed & are unremarkable except as noted in HPI & below Physical Exam Physical Exam: General: Alert, orientedx3. HEENT: NC/AT, PERRLA, EOMI, oropharynx moist. Chest: Nontender to palpation. CV: RRR, no murmurs appreciated. Resp: Breath sounds clear bilaterally Abdomen: Firm, tender, distended. Extremities: Edema in bilateral lower extremities. Results & Data Vital Signs (Past 12 Hours) Vital Signs Temp Pulse Pulse Resp BP BP Pulse Ox 04/04/19 15:51 84 04/04/19 15:46 80 15 83/49 L 100 04/04/19 15:45 82 18 100 04/04/19 15:31 82 12 85/49 L 04/04/19 15:30 83 12 99 04/04/19 15:16 78 14 92/51 L 100 04/04/19 15:15 82 13 100 04/04/19 15:06 36.4 C L 82 25 H 90/56 L 04/04/19 14:20 36.7 C 81 16 87/58 L 100 04/04/19 13:00 85 23 86/53 L 04/04/19 12:00 36.8 C 87 13 88/51 L 99 04/04/19 11:00 87 20 93/54 L 04/04/19 10:46 87 18 85/54 L 04/04/19 10:30 85 21 87/52 L 04/04/19 10:15 79 15 90/56 L 04/04/19 10:00 84 14 91/59 L 04/04/19 09:00 84 16 91/59 L 100 04/04/19 08:45 36.8 C 83 14 95/64 L 04/04/19 08:30 83 13 87/54 L 04/04/19 08:00 89 15 82/55 L 04/04/19 07:45 36.8 C 91 H 18 92/59 L 04/04/19 07:30 36.8 C 89 14 83/57 L 04/04/19 07:15 36.9 C 91 H 14 79/50 L 04/04/19 07:03 36.9 C 93 H 15 80/56 L 100 04/04/19 06:40 36.5 C 93 H 14 81/53 L 100 04/04/19 06:15 94 H 13 98 04/04/19 06:14 92 H 14 71/49 L 91 04/04/19 06:00 93 H 14 100 04/04/19 05:45 94 H 20 100 04/04/19 05:42 93 H 19 147/119 H 96 04/04/19 05:40 36.5 C 93 H 19 147/119 H 96 04/04/19 05:38 22 04/04/19 05:30 36.5 C 91 H 20 147/119 H 100 04/04/19 05:24 90 18 87/62 L 04/04/19 05:10 36.6 C 92 H 17 87/54 L 04/04/19 04:55 36.6 C 91 H 14 86/58 L 04/04/19 04:30 36.4 C L 95 H 21 91/57 L 04/04/19 04:27 91 H 20 85/60 L 99 Laboratory Results Laboratory Results - last 24 hr 04/04/19 04/04/19 04/04/19 03:23 03:23 03:23 WBC 34.42 H* RBC 2.24 L Hgb 7.1 L POC Hgb Hct 20.6 L* POC Hct MCV 92.0 MCH 31.7 MCHC 34.5 RDW Std Deviation 52.3 H RDW Coeff of Spenser 15.5 H Plt Count 345 MPV 9.8 Immature Gran % (Auto) 1.5 Neut % (Auto) 81.1 Lymph % (Auto) 11.7 [place] % (Auto) 5.0 Eos % (Auto) 0.3 Baso % (Auto) 0.4 Immature Gran # (Auto) 0.51 H Neut # (Auto) 27.96 H Lymph # (Auto) 4.01 H [place] # (Auto) 1.71 H Eos # (Auto) 0.09 Baso # (Auto) 0.14 RBC Morphology Unremarkable PT 17.0 H INR 1.7 H APTT 37.0 H PTT Ratio 1.4 POC Sodium Sodium 137 POC Potassium Potassium 5.1 POC Chloride Chloride 112 H Carbon Dioxide 20 L POC Total CO2 Anion Gap 5.0 POC Anion Gap POC BUN BUN 51 H Creatinine 1.90 H POC Creatinine Est Cr Clr Drug Dosing Not Reportable Est GFR ( Amer) 35.5 Est GFR (Non-Af Amer) 30.6 BUN/Creatinine Ratio 26.7 H Glucose 114 H POC Glucose POC Glucose (other) Calcium 7.6 L POC Ioniz Calcium Cresencio Magnesium 1.6 L Total Bilirubin 0.6 AST 45 H ALT 22 Alkaline Phosphatase 138 H Troponin I < 0.015 Total Protein 5.0 L Albumin 1.5 L Globulin 3.5 Albumin/Globulin Ratio 0.4 L Folate Peritoneal Color Peritoneal Appearance Peritoneal WBC Peritoneal RBC Mononuclear WBCs % Polynuclear WBCs % Peritoneal Tot Protein Peritoneal Albumin Nasal Screen MRSA (PCR) Stool Occult Bld Scrn Stl C. diff Tox B Gene Ethyl Alcohol mg/dL Blood Type Antibody Screen Crossmatch 04/04/19 04/04/19 04/04/19 03:23 03:23 03:33 WBC RBC Hgb POC Hgb 6.5 L* Hct POC Hct 19 L* MCV MCH MCHC RDW Std Deviation RDW Coeff of Spenser Plt Count MPV Immature Gran % (Auto) Neut % (Auto) Lymph % (Auto) [place] % (Auto) Eos % (Auto) Baso % (Auto) Immature Gran # (Auto) Neut # (Auto) Lymph # (Auto) [place] # (Auto) Eos # (Auto) Baso # (Auto) RBC Morphology PT INR APTT PTT Ratio POC Sodium 136 Sodium POC Potassium 5.1 H Potassium POC Chloride 108 Chloride Carbon Dioxide POC Total CO2 17 L Anion Gap POC Anion Gap 17.0 POC BUN 47 H BUN Creatinine POC Creatinine 2.1 H Est Cr Clr Drug Dosing Est GFR ( Amer) Est GFR (Non-Af Amer) BUN/Creatinine Ratio Glucose POC Glucose POC Glucose (other) 118 H Calcium POC Ioniz Calcium Cresencio 1.24 Magnesium Total Bilirubin AST ALT Alkaline Phosphatase Troponin I Total Protein Albumin Globulin Albumin/Globulin Ratio Folate Peritoneal Color Peritoneal Appearance Peritoneal WBC Peritoneal RBC Mononuclear WBCs % Polynuclear WBCs % Peritoneal Tot Protein Peritoneal Albumin Nasal Screen MRSA (PCR) Stool Occult Bld Scrn Stl C. diff Tox B Gene Ethyl Alcohol mg/dL < 3.0 Blood Type O Positive Antibody Screen NEGATIVE Crossmatch See Detail 04/04/19 04/04/19 04/04/19 06:00 08:00 08:00 WBC RBC Hgb POC Hgb Hct POC Hct MCV MCH MCHC RDW Std Deviation RDW Coeff of Spenser Plt Count MPV Immature Gran % (Auto) Neut % (Auto) Lymph % (Auto) [place] % (Auto) Eos % (Auto) Baso % (Auto) Immature Gran # (Auto) Neut # (Auto) Lymph # (Auto) [place] # (Auto) Eos # (Auto) Baso # (Auto) RBC Morphology PT INR APTT PTT Ratio POC Sodium Sodium POC Potassium Potassium POC Chloride Chloride Carbon Dioxide POC Total CO2 Anion Gap POC Anion Gap POC BUN BUN Creatinine POC Creatinine Est Cr Clr Drug Dosing Est GFR ( Amer) Est GFR (Non-Af Amer) BUN/Creatinine Ratio Glucose POC Glucose POC Glucose (other) Calcium POC Ioniz Calcium Cresencio Magnesium Total Bilirubin AST ALT Alkaline Phosphatase Troponin I Total Protein Albumin Globulin Albumin/Globulin Ratio Folate Peritoneal Color Peritoneal Appearance Peritoneal WBC Peritoneal RBC Mononuclear WBCs % Polynuclear WBCs % Peritoneal Tot Protein Peritoneal Albumin Nasal Screen MRSA (PCR) Positive A Stool Occult Bld Scrn Positive A Stl C. diff Tox B Gene Negative Cdiff Gene Ethyl Alcohol mg/dL Blood Type Antibody Screen Crossmatch 04/04/19 04/04/19 04/04/19 09:58 09:58 12:00 WBC RBC Hgb 9.2 L POC Hgb Hct 26.7 L POC Hct MCV MCH MCHC RDW Std Deviation RDW Coeff of Spenser Plt Count MPV Immature Gran % (Auto) Neut % (Auto) Lymph % (Auto) [place] % (Auto) Eos % (Auto) Baso % (Auto) Immature Gran # (Auto) Neut # (Auto) Lymph # (Auto) [place] # (Auto) Eos # (Auto) Baso # (Auto) RBC Morphology PT INR APTT PTT Ratio POC Sodium Sodium POC Potassium Potassium POC Chloride Chloride Carbon Dioxide POC Total CO2 Anion Gap POC Anion Gap POC BUN BUN Creatinine POC Creatinine Est Cr Clr Drug Dosing Est GFR ( Amer) Est GFR (Non-Af Amer) BUN/Creatinine Ratio Glucose POC Glucose POC Glucose (other) Calcium POC Ioniz Calcium Cresencio Magnesium Total Bilirubin AST ALT Alkaline Phosphatase Troponin I Total Protein Albumin Globulin Albumin/Globulin Ratio Folate 7.93 Peritoneal Color YELLOW Peritoneal Appearance CLEAR Peritoneal WBC 48 Peritoneal RBC < 3000 Mononuclear WBCs % 62.5 Polynuclear WBCs % 37.5 Peritoneal Tot Protein Peritoneal Albumin Cancelled Nasal Screen MRSA (PCR) Stool Occult Bld Scrn Stl C. diff Tox B Gene Ethyl Alcohol mg/dL Blood Type Antibody Screen Crossmatch 04/04/19 04/04/19 12:00 13:01 WBC RBC Hgb POC Hgb Hct POC Hct MCV MCH MCHC RDW Std Deviation RDW Coeff of Spenser Plt Count MPV Immature Gran % (Auto) Neut % (Auto) Lymph % (Auto) [place] % (Auto) Eos % (Auto) Baso % (Auto) Immature Gran # (Auto) Neut # (Auto) Lymph # (Auto) [place] # (Auto) Eos # (Auto) Baso # (Auto) RBC Morphology PT INR APTT PTT Ratio POC Sodium Sodium POC Potassium Potassium POC Chloride Chloride Carbon Dioxide POC Total CO2 Anion Gap POC Anion Gap POC BUN BUN Creatinine POC Creatinine Est Cr Clr Drug Dosing Est GFR ( Amer) Est GFR (Non-Af Amer) BUN/Creatinine Ratio Glucose POC Glucose 103 H POC Glucose (other) Calcium POC Ioniz Calcium Cresencio Magnesium Total Bilirubin AST ALT Alkaline Phosphatase Troponin I Total Protein Albumin Globulin Albumin/Globulin Ratio Folate Peritoneal Color Peritoneal Appearance Peritoneal WBC Peritoneal RBC Mononuclear WBCs % Polynuclear WBCs % Peritoneal Tot Protein 1.0 Peritoneal Albumin < 0.6 Nasal Screen MRSA (PCR) Stool Occult Bld Scrn Stl C. diff Tox B Gene Ethyl Alcohol mg/dL Blood Type Antibody Screen Crossmatch Medications Administered Home Medications albuterol sulfate 2.5 mg/3 mL (0.083 %) solution for nebulization 2.5 mg INHALATION Q4H PRN #1 ml 03/15/19 [History Confirmed 04/04/19] folic acid 1 mg tablet 1 mg PO DAILY #30 tab 03/15/19 [Rx Confirmed 04/04/19] multivitamin tablet 1 tab PO DAILY 03/15/19 [History Confirmed 04/04/19] mecobalamin (vitamin B12) 1,000 mcg disintegrating tablet,sublingual 1,000 mcg SL DAILY #30 tab 03/16/19 [Rx Confirmed 04/04/19] thiamine HCl (vitamin B1) 100 mg tablet 100 mg PO DAILY #30 tab 03/16/19 [Rx Confirmed 04/04/19] buspirone 5 mg PO DAILY #30 tab 03/22/19 [Rx Confirmed 04/04/19] escitalopram oxalate 5 mg PO DAILY #30 tab 03/22/19 [Rx Confirmed 04/04/19] spironolactone 50 mg PO QAM #60 tab 03/22/19 [Rx Confirmed 04/04/19] diclofenac sodium [Voltaren] 4 gm TOP QID #100 gm 03/30/19 [Rx Confirmed 04/04/19] vancomycin 125 mg PO Q6H 6 Days #24 cap 03/30/19 [Rx Confirmed 04/04/19] vancomycin [Firvanq] 125 mg PO QID 04/02/19 [History Confirmed 04/04/19] Active Medications Pantoprazole Sodium 40 mg/ (Dextrose) 100 mls @ 20 mls/hr IV Q5H [facility]EN Stop: 05/04/19 03:44 Last Admin: 04/04/19 15:28 Dose: 20 mls/hr Documented by: Octreotide Acetate 500 mcg/ (Sodium Chloride) 105 mls @ 10.5 mls/hr IV .Q10H CHEN Stop: 05/04/19 03:29 Last Admin: 04/04/19 16:19 Dose: 50 mcg/hr, 10.5 mls/hr Documented by: Sodium Chloride (Nss) 250 mls @ 15 mls/hr IV .[id number] PRN PRN Reason: For Transfusion Stop: 05/04/19 06:57 Magnesium Sulfate/Dextrose (Magnesium Sulfate / D5w) 1 gm in 100 mls @ 100 mls/hr IV TODAY@0900,1000 [facility] Stop: 04/04/19 18:00 Last Infusion: 04/04/19 11:34 Dose: Infused Documented by: Ceftriaxone Sodium 2,000 mg/ (Dextrose) 70 mls @ 140 mls/hr IV Q24H [facility] Stop: 04/14/19 09:59 Last Infusion: 04/04/19 11:12 Dose: Infused Documented by: Parenteral Electrolytes (Normosol-R) 1,000 mls @ 70 mls/hr IV .[id number] [facility] Stop: 05/04/19 15:14 Miscellaneous (Icu Protocol For Hyperglycemia) 1 ea N/A PRN PRN; Protocol PRN Reason: Hyperglycemia Protocol Stop: 04/06/19 06:13 Ondansetron HCl (Zofran) 4 mg IV Q6H PRN PRN Reason: NAUSEA/VOMITING Stop: 05/04/19 06:13 PG Care Time/CCT Total # of Minutes Spent Total Time Spent with Patient: Total time spent is greater than 50% in c oordination of care (as documented) at patient's floor/unit and/or counseling patient: Resident Activity Tracking Resident Involvement: Resident Care Provided Care Provided: Adult [facility] Medicine
[2019-04-04] MEDS: NORMOSOL-R 1,000 ML IV SCH (17:22)
[2019-04-04 18:31] LABS: Hematocrit (blood only) 24.7 % (37-47); Hemoglobin 8.7 g/dL (12.0-16.0)
[2019-04-05 00:27] LABS: Hematocrit (blood only) 24.3 % (37-47); Hemoglobin 8.6 g/dL (12.0-16.0)
[2019-04-05] MEDS: PANTOprazole 40 MG in DEXTROSE 5% 100 ML IV SCH ×5 (01:41→21:00)
[2019-04-05] MEDS: OCTREOTIDE ACETATE 500 MCG in 0.9 % SODIUM CHLORIDE 100 ML IV SCH ×2 (01:41→10:45)
[2019-04-05 04:28] LABS: Basophils # (auto) 0.12 K/uL (0-0.2); Basophils % (auto) 0.6 %; Eosinophils # (auto) 0.42 K/uL (0-0.5); Hematocrit (blood only) 24.2 % (37-47); Hemoglobin 8.5 g/dL (12.0-16.0); Immature Granulocytes # (auto) 0.14 K/uL (0.00-0.02); Immature Granulocytes % (auto) 0.7 %; Lymphocytes # (auto) 4.23 K/uL (1.2-3.4); Lymphocytes % (auto) 20.5 %; Mean Corpuscular Hgb Conc 35.1 g/dL (32-36); Mean Corpuscular Volume 90.3 fL (80-100); Monocytes # (auto) 0.96 K/uL (0.11-0.59); Monocytes % (auto) 4.7 %; Neutrophils # (auto) 14.72 K/uL (1.4-6.5); Neutrophils % (auto) 71.5 %; Platelet Count 202 K/uL (130-400); RDW Coefficient of Variation 15.3 % (11.5-14.5); RDW Standard Deviation 50.3 fL (36.4-46.3); Red Blood Count 2.68 M/uL (4.2-5.4); White Blood Count 20.59 K/uL (4.8-10.8)
[2019-04-05 04:38] LABS: INR 1.2 (0.9-1.1); Partial Thromboplastin Ratio 1.4; Partial Thromboplastin Time 37.2 Seconds (21.0-31.0); Prothrombin Time 12.6 Seconds (9.0-12.0)
[2019-04-05 04:51] LABS: Albumin Level 1.7 gm/dl (3.4-5.0); BUN Creatinine Ratio 31.9 (10-20); Calcium 7.4 mg/dl (8.5-10.1); Creatinine Clr Calc Pharmacy 29.6 ml/min; Est GFR (African American) 41.5; Est GFR (Non-African American) 35.8; Potassium 3.8 mmol/L (3.5-5.1)
[2019-04-05 04:56] LABS: Albumin Globulin Ratio 0.6 (0.9-2); Bilirubin,Total 1.4 mg/dl (0.2-1); Globulin 2.7 gm/dl (2.5-4.0); Total Protein 4.4 gm/dl (6.4-8.2)
[2019-04-05] MEDS: NORMOSOL-R 1,000 ML IV SCH ×2 (06:23→19:43)
--- NOTE | 2019-04-05 08:12 | Anesthesiology Progress Note ---
Date of Service April 05, 2019 Anesthesia Post Procedure Vital Signs Vital Signs: Temp Pulse Resp BP Pulse Ox 04/05/19 06:00 88 13 84/47 L 98 04/05/19 05:00 88 14 79/48 L 98 04/05/19 04:00 37.0 C 92 H 13 80/43 L 97 04/05/19 03:00 92 H 13 86/47 L 97 04/05/19 02:00 89 13 85/46 L 99 04/05/19 01:30 89 18 80/47 L 99 04/05/19 01:00 90 14 84/49 L 99 04/05/19 00:30 88 18 82/47 L 100 04/05/19 00:00 85 21 82/51 L 100 04/04/19 23:30 85 19 85/50 L 100 04/04/19 23:00 37.1 C 86 20 81/48 L 99 04/04/19 22:00 88 18 81/51 L 99 04/04/19 21:30 87 12 89/54 L 99 04/04/19 21:00 89 13 82/53 L 98 04/04/19 20:30 90 13 87/51 L 99 04/04/19 20:00 37.2 C 85 17 83/52 L 100 04/04/19 19:30 86 20 88/50 L 100 04/04/19 19:00 90 21 92/46 L 99 04/04/19 18:30 88 22 85/50 L 99 04/04/19 18:00 86 20 91/43 L 99 04/04/19 17:30 88 16 89/51 L 99 04/04/19 17:00 87 16 82/47 L 99 04/04/19 16:41 85 14 89/47 L 100 04/04/19 16:40 83 13 89/47 L 100 04/04/19 16:31 89 18 89/47 L 100 04/04/19 16:16 83 14 86/49 L 100 04/04/19 16:01 82 15 79/50 L 99 04/04/19 15:51 84 04/04/19 15:46 80 15 83/49 L 100 04/04/19 15:45 82 18 100 04/04/19 15:31 82 12 85/49 L 04/04/19 15:30 83 12 99 04/04/19 15:16 78 14 92/51 L 100 04/04/19 15:15 82 13 100 04/04/19 15:06 36.4 C L 82 25 H 90/56 L 100 04/04/19 14:20 36.7 C 81 16 87/58 L 100 04/04/19 13:00 85 23 86/53 L 100 04/04/19 12:00 36.8 C 87 13 88/51 L 99 04/04/19 11:00 87 20 93/54 L 100 04/04/19 10:46 87 18 85/54 L 100 04/04/19 10:30 85 21 87/52 L 100 04/04/19 10:15 79 15 90/56 L 100 04/04/19 10:00 84 14 91/59 L 100 04/04/19 09:00 84 16 91/59 L 100 04/04/19 08:45 36.8 C 83 14 95/64 L 100 04/04/19 08:30 83 13 87/54 L 100 Pain Intensity Back: Pain Intensity: 0 Notes Mental Status: alert / awake / arousable and participated in evaluation Patient Amnestic to Procedure: Yes Nausea / Vomiting: adequately controlled Pain: adequately controlled Airway Patency, RR, SpO2: stable & adequate BP & HR: stable & adequate Hydration State: stable & adequate Anesthetic Complications: no major complications apparent
--- NOTE | 2019-04-05 09:51 | Gastroenterology Progress Note ---
Date of Service April 05, 2019 Assessment & Plan (1) Alcoholic cirrhosis of liver: (2) C. difficile colitis: (3) Acute GI bleeding: Pt is a 48 y/o female w hx of ETOH cirrhosis (sober x 2 weeks), complicated by ascites developed who is currently admitted for coffee ground emesis, melena, anemia in setting of Ibuprofen use. She had EGD done on 04/04 which showed no signs of esophageal varices but she had non bleeding esophageal and gastric ulcer. H/H been stable since yesterday afternoon. No more n/v, melena, only had black smear BM this AM. MELD 14 Beside paracentesis done by ICU team - no signs of SBP by cell ct Repeat Cdiff gene +, toxin - Hpylori stool pending. - Start CL diet - Monitor H/H closely - Continue PPI gtt - OK to stop Octreotide gtt and convert to injection form - May try Albumin IV and Midodrine support for maintaining BP, and renal support. Would hold off diuretics at least one more day. - She had been advised to strictly abstain from ETOH, recommended going back to rehab as previously been successful to be sober x 2yrs. Perhaps case management can help arrange for this prior to her DC. - Upon DC we can help arrange for GI f/u for cirrhosis care; she already has appt to see Dr. Mara Gaona on 05/09/19. Supervising Physician Co-Signing Physician Notes I have performed a history and physical examination of this patient and reviewed the electronic medical record. Specifically, on physical examination there is no asterixis and there is tense ascites. I have discussed the case with RUBY Zhou. The above note reflects my findings, conclusions, and recommendations. Blas Adams MD Subjective Hgb noted to be stable around 8 since yesterday afternoon. BP remains soft 80s/40s. Ascites fluid cell ct w/o signs of SBP. WBC 48. She denies any abd pain, n/v, asking for food. Pt had smear of black stool this AM per RN's report Review of Systems Review of Systems: All systems reviewed & are unremarkable except as noted in HPI & below Physical Exam Constitutional: + frail appearing, well groomed, cooperative and comfortable Eyes: PERRL, conjunctivae normal, anicteric sclerae ENMT: external ear and nose normal, oropharynx normal Respiratory: normal respiratory effort, lungs clear to auscultation Cardiovascular: RRR, no murmur, no edema Gastrointestinal (Abdomen): Inspection/Auscultation: + hypoactive bowel sounds Percussion/Palpation: abdomen soft and + ascites; abdomen nontender Skin: no rashes, warm and dry no jaundice Neurologic: Motor/Sensory: no asterixis Psychiatric: Orientation: alert and oriented x 3 Mood: + depressed mood Lymphatic: no lymphedema Results & Data Vital Signs (Past 12 Hours) Vital Signs Temp Pulse Resp BP Pulse Ox 04/05/19 09:00 87 17 84/47 L 100 04/05/19 08:00 36.9 C 92 H 13 80/42 L 99 04/05/19 07:00 89 13 82/39 L 97 04/05/19 06:00 88 13 84/47 L 98 04/05/19 05:00 88 14 79/48 L 98 04/05/19 04:00 37.0 C 92 H 13 80/43 L 97 04/05/19 03:00 92 H 13 86/47 L 97 04/05/19 02:00 89 13 85/46 L 99 04/05/19 01:30 89 18 80/47 L 99 04/05/19 01:00 90 14 84/49 L 99 04/05/19 00:30 88 18 82/47 L 100 04/05/19 00:00 85 21 82/51 L 100 04/04/19 23:30 85 19 85/50 L 100 04/04/19 23:00 37.1 C 86 20 81/48 L 99 04/04/19 22:00 88 18 81/51 L 99
--- NOTE | 2019-04-05 11:45 | Family Medicine Progress Note ---
Date of Service April 05, 2019 Assessment & Plan (1) Acute GI bleedinyo F with a PMHx significant for alcohol abuse, alcoholic cirrhosis with ascites, recent admission for C diff, admitted with GI bleed secondary to Gastric ulcer, anemia Acute GI Bleed -Clinically improved, no further hematemesis, melena - H/H stable, s/p Transfusion 2 Units of pRBCs -EGD with No evidence of esophageal varices. However, nonbleeding esophageal, gastric ulcers noted with clot. -Gastroenterology recommendations appreciated -octreotide discontinued -Continue Protonix -continue to trend H/H, advise continual alcohol abstinence. Avoid NSAID use. -Rocehin discontinued given negative varicieal findings -will continue to monitor Abdominal ascites/Hx of cirrhosis -Pt with meld score of 14 -INR 1.2 from 1.7 s/p Vit K -s/p paracentesis 04/04, 5L of yellow fluid removed. ELECTROLYTE abnormalities -replace mag, calcium as needed ALCOHOL CESSATION -parliamentary counsel on alcohol cessation FEN/GI: fluids DVT proph: chemo prophylaxis contraindicated CODE STATUS: full Supervising Physician Co-Signing Physician Notes I personally examined the patient and verified all [place] points of history and exam, discussed case, and agree with decision making with Dr Fraser. [place] and would like clears. Abdominal pain improved. No new complaints. No notable further bleeding. Case discussed with GI and ICU. vitals noted nad breathing unlabored no rales rhonchi or wheezes good effort. Cardio regular no rubs murmurs gallops. Abdomen soft mildly distended with a fluid wave but far better than before. No pallor or icterus. no focal neuro deficits at rest. UGI bleed, acute blood loss anemia, early hypovolemic/hemorrhagic shock present on admission -Relates to peptic ulcer disease -Ongoing acid suppression -Clear liquid diet cirrhosis with ascites - s/p repeat paracentesis. Ongoing medical management as per GI coagulopathy - FFP if she rebleeds. Subjective No acute events overnight. Patient reports continued improvement in abdominal discomfort s/p parecentesis on 04/04. She denies nausea, vomiting, fevers, chills. She reports formed stool. Review of Systems Constitutional: no fever and no chills Respiratory: no cough, no dyspnea and no wheezing Cardiovascular: no chest pain, no palpitations, no edema and no calf pain Gastrointestinal: no abdominal pain, no nausea, no vomiting and no change in stools Integumentary: no rash, no lesions and no change in skin color Physical Exam Physical Exam: GENERAL APPEARANCE: alert and cooperative, and appears to be in no acute distress. HEAD: normocephalic. EYES: PERRL, EOMI. vision is grossly intact. EARS; hearing grossly intact. NOSE: No nasal discharge. NECK: Neck supple, non-tender without lymphadenopathy CARDIAC: Normal S1 and S2. No S3, S4 or murmurs. Rhythm is regular LUNGS: Clear to auscultation and percussion without rales, rhonchi, wheezing or diminished breath sounds. ABDOMEN: abdominal distension, non-tender to palpation, no rebound, no rigidity, +bowel sounds LOWER EXTREMITY:1+ pedal edema NEUROLOGICAL: CN II-XII grossly intact. Strength and sensation symmetric and grossly intact throughout. Results & Data Vital Signs (Past 12 Hours) Vital Signs Temp Pulse Resp BP Pulse Ox 04/05/19 11:00 90 21 87/50 L 100 04/05/19 10:30 88 21 100 04/05/19 10:00 87 16 84/49 L 99 04/05/19 09:00 87 17 84/47 L 100 04/05/19 08:00 36.9 C 92 H 13 80/42 L 99 04/05/19 07:00 89 13 82/39 L 97 04/05/19 06:00 88 13 84/47 L 98 04/05/19 05:00 88 14 79/48 L 98 04/05/19 04:00 37.0 C 92 H 13 80/43 L 97 04/05/19 03:00 92 H 13 86/47 L 97 04/05/19 02:00 89 13 85/46 L 99 04/05/19 01:30 89 18 80/47 L 99 04/05/19 01:00 90 14 84/49 L 99 04/05/19 00:30 88 18 82/47 L 100 04/05/19 00:00 85 21 82/51 L 100 Laboratory Results Laboratory Results WBC 20.59 K/uL (4.8-10.8) H 04/05/19 04:12 RBC 2.68 M/uL (4.2-5.4) L 04/05/19 04:12 Hgb 8.5 g/dL (12.0-16.0) L 04/05/19 04:12 POC Hgb 6.5 g/dl (12.0-16.0) L* 04/04/19 03:33 Hct 24.2 % (37-47) L 04/05/19 04:12 POC Hct 19 % (37-47) L* 04/04/19 03:33 MCV 90.3 fL (80-100) 04/05/19 04:12 MCH 31.7 pg (25-34) 04/05/19 04:12 MCHC 35.1 g/dL (32-36) 04/05/19 04:12 RDW Std Deviation 50.3 fL (36.4-46.3) H 04/05/19 04:12 RDW Coeff of Spenser 15.3 % (11.5-14.5) H 04/05/19 04:12 Plt Count 202 K/uL (130-400) 04/05/19 04:12 MPV 10.0 fL (7.4-10.4) 04/05/19 04:12 Immature Gran % (Auto) 0.7 % 04/05/19 04:12 Neut % (Auto) 71.5 % 04/05/19 04:12 Lymph % (Auto) 20.5 % 04/05/19 04:12 [place] % (Auto) 4.7 % 04/05/19 04:12 Eos % (Auto) 2.0 % 04/05/19 04:12 Baso % (Auto) 0.6 % 04/05/19 04:12 Immature Gran # (Auto) 0.14 K/uL (0.00-0.02) H 04/05/19 04:12 Neut # (Auto) 14.72 K/uL (1.4-6.5) H 04/05/19 04:12 Lymph # (Auto) 4.23 K/uL (1.2-3.4) H 04/05/19 04:12 [place] # (Auto) 0.96 K/uL (0.11-0.59) H 04/05/19 04:12 Eos # (Auto) 0.42 K/uL (0-0.5) 04/05/19 04:12 Baso # (Auto) 0.12 K/uL (0-0.2) 04/05/19 04:12 RBC Morphology Unremarkable 04/04/19 03:23 PT 12.6 Seconds (9.0-12.0) H 04/05/19 04:12 INR 1.2 (0.9-1.1) H 04/05/19 04:12 APTT 37.2 Seconds (21.0-31.0) H 04/05/19 04:12 PTT Ratio 1.4 04/05/19 04:12 POC Sodium 136 mEq/L (135-144) 04/04/19 03:33 Sodium 138 mmol/L (136-145) 04/05/19 04:12 POC Potassium 5.1 mEq/L (3.3-5.0) H 04/04/19 03:33 Potassium 3.8 mmol/L (3.5-5.1) D 04/05/19 04:12 POC Chloride 108 mEq/L (101-112) 04/04/19 03:33 Chloride 114 mmol/L (98-107) H 04/05/19 04:12 Carbon Dioxide 17 mmol/L (21-32) L 04/05/19 04:12 POC Total CO2 17 mEq/l (24-31) L 04/04/19 03:33 Anion Gap 7.0 (3-11) 04/05/19 04:12 POC Anion Gap 17.0 mmol/L (16-25) 04/04/19 03:33 POC BUN 47 mg/dl (7-18) H 04/04/19 03:33 BUN 53 mg/dl (7-18) H 04/05/19 04:12 Creatinine 1.67 mg/dl (0.6-1.2) H 04/05/19 04:12 POC Creatinine 2.1 mg/dl (0.6-1.3) H 04/04/19 03:33 Est Cr Clr Drug Dosing 29.6 ml/min 04/05/19 04:12 Est GFR ( Amer) 41.5 04/05/19 04:12 Est GFR (Non-Af Amer) 35.8 04/05/19 04:12 BUN/Creatinine Ratio 31.9 (10-20) H 04/05/19 04:12 Glucose 81 mg/dl (70-99) 04/05/19 04:12 POC Glucose 85 (70-99) 04/04/19 23:22 POC Glucose (other) 118 mg/dl (70-99) H 04/04/19 03:33 Calcium 7.4 mg/dl (8.5-10.1) L 04/05/19 04:12 POC Ioniz Calcium Cresencio 1.24 mmol/l (1.12-1.32) 04/04/19 03:33 Magnesium 1.6 mg/dl (1.8-2.4) L 04/04/19 03:23 Total Bilirubin 1.4 mg/dl (0.2-1) H D 04/05/19 04:12 AST 80 U/L (15-37) H 04/05/19 04:12 ALT 24 U/L (12-78) 04/05/19 04:12 Alkaline Phosphatase 114 U/L (45-117) 04/05/19 04:12 Troponin I < 0.015 ng/ml (0-0.045) 04/04/19 03:23 Total Protein 4.4 gm/dl (6.4-8.2) L 04/05/19 04:12 Albumin 1.7 gm/dl (3.4-5.0) L 04/05/19 04:12 Globulin 2.7 gm/dl (2.5-4.0) 04/05/19 04:12 Albumin/Globulin Ratio 0.6 (0.9-2) L 04/05/19 04:12 Folate 7.93 ng/ml (>5.38) 04/04/19 09:58 Peritoneal Color YELLOW 04/04/19 12:00 Peritoneal Appearance CLEAR 04/04/19 12:00 Peritoneal WBC 48 /ul (0-300) 04/04/19 12:00 Peritoneal RBC < 3000 /uL 04/04/19 12:00 Mononuclear WBCs % 62.5 % 04/04/19 12:00 Polynuclear WBCs % 37.5 % 04/04/19 12:00 Peritoneal Tot Protein 1.0 g/dl 04/04/19 12:00 Peritoneal Albumin < 0.6 g/dl 04/04/19 12:00 Peritoneal Albumin Cancelled 04/04/19 12:00 Nasal Screen MRSA (PCR) Positive (Negative) A 04/04/19 06:00 Stool Occult Bld Scrn Positive (Negative) A 04/04/19 08:00 Stl C. diff Tox B Gene Negative Cdiff Gene (Neg) 04/04/19 08:00 Ethyl Alcohol mg/dL < 3.0 mg/dl (0-3) 04/04/19 03:23 Blood Type O Positive 04/04/19 03:23 Antibody Screen NEGATIVE 04/04/19 03:23 Crossmatch See Detail 04/04/19 03:23 Medications Administered Pantoprazole Sodium 40 mg/ (Dextrose) 100 mls @ 20 mls/hr IV Q5H CHEN Stop: 05/04/19 03:44 Last Admin: 04/05/19 10:54 Dose: 20 mls/hr Documented by: [id number] Infusion: 04/05/19 10:54 Dose: 20 mls/hr Documented by: [id number] Admin: 04/05/19 06:23 Dose: 20 mls/hr Documented by: [id number] Infusion: 04/05/19 06:23 Dose: 20 mls/hr Documented by: [id number] Admin: 04/05/19 01:41 Dose: 20 mls/hr Documented by: [id number] Infusion: 04/05/19 01:16 Dose: 20 mls/hr Documented by: [id number] Admin: 04/04/19 20:16 Dose: 20 mls/hr Documented by: [id number] Infusion: 04/04/19 20:16 Dose: 20 mls/hr Documented by: [id number] Admin: 04/04/19 15:28 Dose: 20 mls/hr Documented by: [id number] Infusion: 04/04/19 15:28 Dose: 20 mls/hr Documented by: [id number] Admin: 04/04/19 10:33 Dose: 20 mls/hr Documented by: [id number] Infusion: 04/04/19 10:33 Dose: 0 mls/hr Documented by: [id number] Infusion: 04/04/19 05:01 Dose: 0 mls/hr Documented by: [id number] Admin: 04/04/19 04:15 Dose: 20 mls/hr Documented by: [id number] Parenteral Electrolytes (Normosol-R) 1,000 mls @ 70 mls/hr IV .[id number] CHEN Stop: 05/04/19 15:14 Last Admin: 04/05/19 06:23 Dose: 70 mls/hr Documented by: [id number] Infusion: 04/05/19 06:23 Dose: 70 mls/hr Documented by: [id number] Admin: 04/04/19 17:22 Dose: 70 mls/hr Documented by: [id number] Discontinued Medications Albumin Human (Albumin 25%) 50 gm IV ONE ONE Stop: 04/04/19 13:16 Last Admin: 04/04/19 16:20 Dose: Not Given Documented by: [id number] Hydromorphone HCl (Dilaudid) 0.5 mg IV NOW STA Stop: 04/04/19 09:17 Last Admin: 04/04/19 10:34 Dose: Not Given Documented by: [id number] Sodium Chloride (Nss 1000ml) 1,000 mls @ 100 mls/hr IV .Q10H CHEN Stop: 04/04/19 13:29 Last Infusion: 04/04/19 17:23 Dose: 0 mls/hr Documented by: [id number] Admin: 04/04/19 04:45 Dose: 100 mls/hr Documented by: [id number] Pantoprazole Sodium 80 mg/ (Dextrose) 120 mls @ 480 mls/hr IV NOW STA Stop: 04/04/19 03:39 Last Infusion: 04/04/19 04:14 Dose: 0 mls/hr Documented by: [id number] Admin: 04/04/19 03:58 Dose: 480 mls/hr Documented by: [id number] Octreotide Acetate 50 mcg/ (Syringe) 10 mls @ 3 mls/min IV ONE STA Stop: 04/04/19 03:32 Last Admin: 04/04/19 03:59 Dose: 3 mls/min Documented by: [id number] Octreotide Acetate 500 mcg/ (Sodium Chloride) 105 mls @ 10.5 mls/hr IV .Q10H S CH Stop: 05/04/19 03:29 Last Admin: 04/05/19 10:45 Dose: Not Given Documented by: [id number] Infusion: 04/05/19 10:45 Dose: 0 mcg/hr, 0 mls/hr Documented by: [id number] Admin: 04/05/19 01:41 Dose: 50 mcg/hr, 10.5 mls/hr Documented by: [id number] Infusion: 04/05/19 01:41 Dose: 50 mcg/hr, 10.5 mls/hr Documented by: [id number] Admin: 04/04/19 16:19 Dose: 50 mcg/hr, 10.5 mls/hr Documented by: [id number] Infusion: 04/04/19 15:19 Dose: 50 mcg/hr, 10.5 mls/hr Documented by: [id number] Infusion: 04/04/19 04:33 Dose: 0 mcg/hr, 0 mls/hr Documented by: [id number] Admin: 04/04/19 04:04 Dose: 50 mcg/hr, 10.5 mls/hr Documented by: [id number] Sodium Chloride (Nss 1000ml) 2,000 mls @ 999 mls/hr IV .Q2H1M ONE Stop: 04/04/19 05:55 Last Infusion: 04/04/19 04:43 Dose: 0 mls/hr Documented by: [id number] Admin: 04/04/19 03:58 Dose: 999 mls/hr Documented by: [id number] Phytonadione 5 mg/ Sodium (Chloride) 50.5 mls @ 101 mls/hr IV ONE ONE Stop: 04/04/19 05:01 Last Infusion: 04/04/19 06:18 Dose: 0 mls/hr Documented by: [id number] Admin: 04/04/19 05:02 Dose: 101 mls/hr Documented by: [id number] Sodium Chloride (Nss 1000ml) 500 mls @ 999 mls/hr IV .Q31M ONE Stop: 04/04/19 07:33 Last Infusion: 04/04/19 09:16 Dose: 0 mls/hr Documented by: [id number] Admin: 04/04/19 08:06 Dose: 999 mls/hr Documented by: [id number] Albumin Human (Albumin 25%) 50 mls @ 50 mls/hr IV 0800 ONE Stop: 04/04/19 08:59 Last Infusion: 04/04/19 10:49 Dose: 0 mls/hr Documented by: [id number] Admin: 04/04/19 08:54 Dose: 50 mls/hr Documented by: [id number] Ceftriaxone Sodium 1,000 mg/ (Dextrose) 50 mls @ 100 mls/hr IV Q24H [facility]; Protocol Stop: 04/14/19 08:59 Last Admin: 04/04/19 09:17 Dose: Not Given Documented by: [id number] Magnesium Sulfate/Dextrose (Magnesium Sulfate / D5w) 1 gm in 100 mls @ 100 mls/hr IV TODAY@0900,1000 [facility] Stop: 04/04/19 18:00 Last Infusion: 04/04/19 11:34 Dose: 0 mls/hr Documented by: [id number] Admin: 04/04/19 10:33 Dose: 100 mls/hr Documented by: [id number] Infusion: 04/04/19 09:53 Dose: 100 mls/hr Documented by: [id number] Admin: 04/04/19 08:53 Dose: 100 mls/hr Documented by: [id number] Albumin Human (Albumin 5%) 250 mls @ 500 mls/hr IV Q30M [facility] Stop: 04/04/19 11:14 Last Admin: 04/04/19 10:46 Dose: Not Given Documented by: [id number] Admin: 04/04/19 10:46 Dose: Not Given Documented by: [id number] Infusion: 04/04/19 10:35 Dose: 500 mls/hr Documented by: [id number] Admin: 04/04/19 10:15 Dose: 500 mls/hr Documented by: [id number] Ceftriaxone Sodium 2,000 mg/ (Dextrose) 70 mls @ 140 mls/hr IV Q24H [facility] Stop: 04/14/19 09:59 Last Infusion: 04/04/19 11:12 Dose: 0 mls/hr Documented by: [id number] Admin: 04/04/19 10:34 Dose: 140 mls/hr Documented by: [id number] Ketamine HCl (Ketalar Steri-Vial) Confirm Administered Dose 500 mg .ROUTE .STK- MED ONE Stop: 04/04/19 14:25 Last Admin: 04/04/19 16:24 Dose: Not Given Documented by: [id number] Lidocaine HCl (Xylocaine 2%) Confirm Administered Dose 2 ml INFIL .STK-MED ONE Stop: 04/04/19 14:25 Last Admin: 04/04/19 16:24 Dose: Not Given Documented by: [id number] Midazolam HCl (Versed) Confirm Administered Dose 2 mg .ROUTE .STK-MED ONE Stop: 04/04/19 14:26 Last Admin: 04/04/19 16:24 Dose: Not Given Documented by: [id number] Ondansetron HCl (Zofran) Confirm Administered Dose 4 mg .ROUTE .STK-MED ONE Stop: 04/04/19 04:08 Last Admin: 04/04/19 04:10 Dose: Not Given Documented by: [id number] Ondansetron HCl (Zofran) 4 mg IV NOW STA Stop: 04/04/19 04:09 Last Admin: 04/04/19 04:10 Dose: 4 mg Documented by: [id number] Propofol (Diprivan) Confirm Administered Dose 200 mg IV .STK-MED ONE Stop: 04/04/19 14:25 Last Admin: 04/04/19 16:23 Dose: Not Given Documented by: [id number] PG Care Time/CCT Total # of Minutes Spent Total Time Spent with Patient: Total time spent is greater than 50% in scan coordinator rdination of care (as documented) at patient's floor/unit and/or counseling patient: Resident Activity Tracking Resident Involvement: Resident Care Provided Care Provided: Adult Hospital Medicine
--- NOTE | 2019-04-05 14:20 | Critical Care Progress Note ---
Date of Service April 05, 2019 Assessment & Plan (1) Acute GI bleeding: Impression: 1. Upper GI bleed, esophageal variceal bleed versus gastropathy versus gastritis secondary to alcoholism and NSAID. 2. Liver cirrhosis, child C[place] 10, meld score of 19. 3. Portal hypertension with recurrent ascites, transudate of. 4. History of alcoholism. 5. Nicotine abuse. 6. No evidence of HE. Plan: 1. Appreciate GI input. 2. Start the patient midodrine 5 mg 3 times daily. 3. Peritoneal fluid are consistent with transudate, not compatible with SBP, I will start the patient on octreotide 50 mics subcutaneously 3 times daily. 4. Albumin 12-1/2 g every 4 hours x1 day, that would give the patient 75 g which is approximately 1.5 g/kg of her body weight to improve her portal hypertension. 5. Hematocrit is stable, no need for blood transfusion today. 6. No need for repeat paracentesis.. 7. GI consult appreciated. 8. Clear liquid diet. 9. Continue Protonix. 10. Venodyne boots. 11. Core measures for the ICU has been met. 12. Discussed with the staff on rounds in details. 13. Patient can be transitioned to regular floor. Critical care time spent with the patient was 35 minutes. Subjective No events overnight, the patient is feeling better, her blood pressure has been borderline which is at baseline, no increased distention in her abdomen, she denies any nausea or vomiting, no hematemesis, started on oral intake with clear liquid. Review of Systems Review of Systems: Review of system including 10 systems was unremarkable. Physical Exam Physical Exam: Vital signs are stable, S1-S2 regular rate and rhythm, lungs with distant breath sounds, abdomen soft but distended, no edema, cachexia, pale conjunctiva, neurologically she has no asterixis or tremor. Results & Data Vital Signs (Past 12 Hours) Vital Signs Temp Pulse Resp BP Pulse Ox 04/05/19 13:00 81 23 84/47 L 04/05/19 12:00 36.6 C 84 22 85/58 L 04/05/19 11:00 90 21 87/50 L 100 04/05/19 10:30 88 21 100 04/05/19 10:00 87 16 84/49 L 99 04/05/19 09:00 87 17 84/47 L 100 04/05/19 08:00 36.9 C 92 H 13 80/42 L 99 04/05/19 07:00 89 13 82/39 L 97 04/05/19 06:00 88 13 84/47 L 98 04/05/19 05:00 88 14 79/48 L 98 04/05/19 04:00 37.0 C 92 H 13 80/43 L 97 04/05/19 03:00 92 H 13 86/47 L 97 Laboratory Results Peritoneal fluid are not consistent with SBP. Diagnostic Findings No new imaging. PG Care Time/CCT Total Critical Care Time: 35
[2019-04-05] MEDS: MIDODRINE HCL 2.5 MG TAB PO SCH (14:50)
[2019-04-05] MEDS: OCTREOTIDE ACETATE 100 MCG/ML VIAL SQ SCH ×2 (14:51→21:02)
[2019-04-05] MEDS: ALBUMIN 25% 50 ML IV SCH ×3 (14:52→21:04)
[2019-04-06] MEDS: ALBUMIN 25% 50 ML IV SCH ×3 (01:52→11:48)
[2019-04-06] MEDS: PANTOprazole 40 MG in DEXTROSE 5% 100 ML IV SCH ×5 (02:04→21:41)
[2019-04-06 04:46] LABS: INR 1.3 (0.9-1.1); Prothrombin Time 13.4 Seconds (9.0-12.0)
[2019-04-06 05:09] LABS: Albumin Level 2.4 gm/dl (3.4-5.0); BUN Creatinine Ratio 27.4 (10-20); Calcium 7.6 mg/dl (8.5-10.1); Creatinine Clr Calc Pharmacy 30.1 ml/min; Est GFR (African American) 42.4; Est GFR (Non-African American) 36.6; Magnesium 1.9 mg/dl (1.8-2.4)
[2019-04-06 05:10] LABS: Hematocrit (blood only) 19.8 % (37-47); Hemoglobin 6.9 g/dL (12.0-16.0); Mean Corpuscular Hgb Conc 34.8 g/dL (32-36); Mean Corpuscular Volume 91.2 fL (80-100); Mean Platelet Volume 9.9 fL (7.4-10.4); Platelet Count 167 K/uL (130-400); RDW Coefficient of Variation 15.6 % (11.5-14.5); RDW Standard Deviation 52.1 fL (36.4-46.3); Red Blood Count 2.17 M/uL (4.2-5.4); White Blood Count 11.85 K/uL (4.8-10.8)
[2019-04-06 05:12] LABS: Albumin Globulin Ratio 1.1 (0.9-2); Bilirubin,Total 0.8 mg/dl (0.2-1); Globulin 2.1 gm/dl (2.5-4.0); Total Protein 4.5 gm/dl (6.4-8.2)
[2019-04-06 05:13] LABS: Basophils # (auto) 0.09 K/uL (0-0.2); Basophils % (auto) 0.8 %; Echinocytes 1+; Eosinophils # (auto) 0.44 K/uL (0-0.5); Eosinophils % (auto) 3.7 %; Immature Granulocytes # (auto) 0.07 K/uL (0.00-0.02); Immature Granulocytes % (auto) 0.6 %; Lymphocytes % (auto) 22.8 %; Monocytes # (auto) 0.85 K/uL (0.11-0.59); Monocytes % (auto) 7.2 %; Neutrophils % (auto) 64.9 %
[2019-04-06] MEDS ORDERED: SODIUM CHLORIDE 0.9% 250 ML IV PRN (05:17)
[2019-04-06] MEDS: OCTREOTIDE ACETATE 100 MCG/ML VIAL SQ SCH ×3 (05:59→21:42)
--- NOTE | 2019-04-06 07:02 | Family Medicine Progress Note ---
Date of Service April 06, 2019 Assessment & Plan (1) Acute GI bleedinyo F with a PMHx significant for alcohol abuse, alcoholic cirrhosis with ascites, recent admission for C diff, admitted with GI bleed possibly secondary to bleeding Gastric ulcer. Acute GI Bleed -s/p 2U transfusion overnight, Hgb currently stable at 10.4. -Repeat EGD with similar findings of esophageal and gastric ulcers, this time with a visible vessel that was treated for hemostasis. -Gastroenterology recommendations appreciated -Continue Protonix -continue to trend H/H, advise continual alcohol abstinence. Avoid NSAID use. -will continue to monitor Abdominal ascites/Hx of cirrhosis -Pt with meld score of 14 -Refractory ascites, consider repeat paracentesis, possible TIPS. -INR 1.2 from 1.7, s/p Vit K -s/p paracentesis 04/04, 5L of yellow fluid removed. ELECTROLYTE abnormalities (Hypomagnesemia, Hypocalcemia, Hypokalemia) -replace potassium, mag, calcium as needed -will continue to monitor ALCOHOL CESSATION -university counselor on alcohol cessation FEN/GI: fluids, clear liquid diet DVT proph: chemo prophylaxis contraindicated CODE STATUS: full Supervising Physician Co-Signing Physician Notes I personally examined the patient and verified all [place] points of history and exam, discussed case, and agree with decision making with Dr Barnett. upset about life stressors. awaiting f/u EGD. no new physical complaints. vitals noted nad breathing unlabored no accessory muscles good effort. No pallor or icterus. no focal neuro deficits at rest. UGI bleed, acute blood loss anemia, early hypovolemic/hemorrhagic shock present on admission -Relates to peptic ulcer disease - needed further transfusion this AM. for repeat EGD today. -Ongoing acid suppression -supportive care / empathy and support provided cirrhosis with ascites - s/p repeat paracentesis. Ongoing medical management as per GI coagulopathy - can consider FFP if she rebleeds. Subjective Judi states she's feeling better this AM. Denies dizziness or lightheadedness currently. Had to be transfused 2U of blood overnight. Has a bit of a JAMES but denies chest pain, SOB, palps, N/V or abdominal pain. Review of Systems Review of Systems: All systems reviewed & are unremarkable except as noted in HPI & below Physical Exam Physical Exam: General: Alert, orientedx3. HEENT: NC/AT, PERRLA, EOMI, oropharynx moist. Chest: Nontender to palpation. CV: RRR, no murmurs appreciated. Resp: Breath sounds clear bilaterally Abdomen: Firm, tender, distended. Extremities: no edema in lower extremities today. Results & Data Vital Signs (Past 12 Hours) Vital Signs Temp Pulse Pulse Resp BP BP Pulse Ox 04/06/19 06:21 75 18 79/51 L 97 04/06/19 06:06 36.9 C 76 17 79/49 L 99 04/06/19 06:00 75 18 78/50 L 97 04/06/19 05:48 37 C 77 18 84/46 L 99 04/06/19 04:00 36.8 C 78 17 80/44 L 97 04/06/19 02:00 77 17 80/45 L 98 04/06/19 00:00 36.7 C 77 12 80/43 L 97 04/05/19 22:00 73 16 83/46 L 99 04/05/19 20:00 36.8 C 78 18 80/48 L 100 Laboratory Results Laboratory Results - last 24 hr 04/04/19 04/05/19 04/06/19 03:23 15:58 04:17 WBC 11.85 H RBC 2.17 L Hgb 6.9 L* Hct 19.8 L* MCV 91.2 MCH 31.8 MCHC 34.8 RDW Std Deviation 52.1 H RDW Coeff of Spenser 15.6 H Plt Count 167 MPV 9.9 Immature Gran % (Auto) 0.6 Neut % (Auto) 64.9 Lymph % (Auto) 22.8 [place] % (Auto) 7.2 Eos % (Auto) 3.7 Baso % (Auto) 0.8 Immature Gran # (Auto) 0.07 H Neut # (Auto) 7.70 H Lymph # (Auto) 2.70 [place] # (Auto) 0.85 H Eos # (Auto) 0.44 Baso # (Auto) 0.09 Echinocytes 1+ PT INR Sodium Potassium Chloride Carbon Dioxide Anion Gap BUN Creatinine Est Cr Clr Drug Dosing Est GFR ( Amer) Est GFR (Non-Af Amer) BUN/Creatinine Ratio Glucose POC Glucose 198 H Calcium Magnesium Total Bilirubin AST ALT Alkaline Phosphatase Total Protein Albumin Globulin Albumin/Globulin Ratio Blood Type O Positive Antibody Screen NEGATIVE Crossmatch See Detail 04/06/19 04/06/19 04:17 04:17 WBC RBC Hgb Hct MCV MCH MCHC RDW Std Deviation RDW Coeff of Spenser Plt Count MPV Immature Gran % (Auto) Neut % (Auto) Lymph % (Auto) [place] % (Auto) Eos % (Auto) Baso % (Auto) Immature Gran # (Auto) Neut # (Auto) Lymph # (Auto) [place] # (Auto) Eos # (Auto) Baso # (Auto) Echinocytes PT 13.4 H INR 1.3 H Sodium 138 Potassium 3.0 L D Chloride 113 H Carbon Dioxide 19 L Anion Gap 6.0 BUN 45 H Creatinine 1.64 H Est Cr Clr Drug Dosing 30.1 Est GFR ( Amer) 42.4 Est GFR (Non-Af Amer) 36.6 BUN/Creatinine Ratio 27.4 H Glucose 88 POC Glucose Calcium 7.6 L Magnesium 1.9 Total Bilirubin 0.8 D AST 74 H ALT 26 Alkaline Phosphatase 117 Total Protein 4.5 L Albumin 2.4 L Globulin 2.1 L Albumin/Globulin Ratio 1.1 Blood Type Antibody Screen Crossmatch Medications Administered Home Medications albuterol sulfate 2.5 mg/3 mL (0.083 %) solution for nebulization 2.5 mg INHALATION Q4H PRN #1 ml 03/15/19 [History Confirmed 04/04/19] folic acid 1 mg tablet 1 mg PO DAILY #30 tab 03/15/19 [Rx Confirmed 04/04/19] multivitamin tablet 1 tab PO DAILY 03/15/19 [History Confirmed 04/04/19] mecobalamin (vitamin B12) 1,000 mcg disintegrating tablet,sublingual 1,000 mcg SL DAILY #30 tab 03/16/19 [Rx Confirmed 04/04/19] thiamine HCl (vitamin B1) 100 mg tablet 100 mg PO DAILY #30 tab 03/16/19 [Rx Confirmed 04/04/19] buspirone 5 mg PO DAILY #30 tab 03/22/19 [Rx Confirmed 04/04/19] escitalopram oxalate 5 mg PO DAILY #30 tab 03/22/19 [Rx Confirmed 04/04/19] spironolactone 50 mg PO QAM #60 tab 03/22/19 [Rx Confirmed 04/04/19] diclofenac sodium [Voltaren] 4 gm TOP QID #100 gm 03/30/19 [Rx Confirmed 04/04/19] vancomycin [Firvanq] 125 mg PO QID 04/02/19 [History Confirmed 04/04/19] Active Medications Heparin Sodium (Beef Lung) (Heparin Sod 10 Unit/Ml Flush) 5 ml FLUSH PRN PRN PRN Reason: Flush Stop: 05/05/19 22:53 Pantoprazole Sodium 40 mg/ (Dextrose) 100 mls @ 20 mls/hr IV Q5H CHEN Stop: 05/04/19 03:44 Last Admin: 04/06/19 07:14 Dose: 20 mls/hr Documented by: Sodium Chloride (Nss) 250 mls @ 15 mls/hr IV .[id number] PRN PRN Reason: For Transfusion Stop: 05/04/19 06:57 Parenteral Electrolytes (Normosol-R) 1,000 mls @ 70 mls/hr IV .[id number] CHEN Stop: 05/04/19 15:14 Last Infusion: 04/06/19 06:00 Dose: 0 mls/hr Documented by: Albumin Human (Albumin 25%) 50 mls @ 50 mls/hr IV Q4H CHEN Stop: 04/06/19 10:59 Last Infusion: 04/06/19 07:00 Dose: Infused Documented by: Sodium Chloride (Nss) 250 mls @ 15 mls/hr IV .[id number] PRN PRN Reason: For Transfusion Stop: 05/06/19 05:16 Potassium Chloride (K [place] / Wtr) 20 meq in 100 mls @ 50 mls/hr IV Q2H CHEN Stop: 04/06/19 14:59 Last Admin: 04/06/19 08:49 Dose: 50 mls/hr Documented by: Midodrine (Proamatine) 5 mg PO TID@0800,1200,1700 CHEN Stop: 05/05/19 16:59 Last Admin: 04/06/19 07:30 Dose: 5 mg Documented by: Octreotide Acetate (Sandostatin) 50 mcg SQ Q8H CHEN Stop: 05/05/19 13:59 Last Admin: 04/06/19 05:59 Dose: 50 mcg Documented by: Ondansetron HCl (Zofran) 4 mg IV Q6H PRN PRN Reason: NAUSEA/VOMITING Stop: 05/04/19 06:13 PG Care Time/CCT Total # of Minutes Spent Total Time Spent with Patient: Total time spent is greater than 50% in coordination of care (as documented) at patient's floor/unit and/or counseling patient: Resident Activity Tracking Resident Involvement: Resident Care Provided Care Provided: Adult Hospital Medicine
[2019-04-06] MEDS: MIDODRINE HCL 2.5 MG TAB PO SCH ×2 (07:30→12:07)
[2019-04-06] MEDS: POTASSIUM CHLORIDE / WTR 20 MEQ/100 ML PLCT IV SCH ×3 (08:49→12:07)
--- NOTE | 2019-04-06 10:26 | Gastroenterology Progress Note ---
Date of Service April 06, 2019 Assessment & Plan (1) Alcoholic cirrhosis of liver: (2) C. difficile colitis: (3) Acute GI bleeding: Pt is a 48 y/o female w hx of ETOH cirrhosis (sober x 2 weeks), complicated by ascites developed who is currently admitted for coffee ground emesis, melena, anemia in setting of Ibuprofen use. She had EGD done on 04/04 which showed no signs of esophageal varices but she had non bleeding esophageal and gastric ulcer. Hgb dropped to 6.9 today w/o further signs of GI bleeding. Abd getting more distended w ascites accumulation MELD 14 Beside paracentesis done by ICU team - no signs of SBP by cell ct Repeat Cdiff gene +, toxin - Hpylori stool pending. - NPO now. Will re-eval to determine if she should undergo repeat EGD. Worrisome for bleeding at large gastric ulcer site that had an adherent clot. - Monitor H/H closely - Continue PPI gtt - Continue Octreotide injection, Midodrine - Not sure if she's a TIPS candidate for ascites control. Will first of all need to obtain at least echocardiogram to r/o congestive heart problems, CT liver. Unfortunately BP soft for diuretic management and we may for now need to repeat paracentesis and continue Albumin support if she's reaccumulating ascites. - She had been advised to strictly abstain from ETOH, recommended going back to rehab as previously been successful to be sober x 2yrs. Perhaps case management can help arrange for this prior to her DC. - Upon DC we can help arrange for GI f/u for cirrhosis care; she already has appt to see Dr. Mara Gaona on 05/09/19. Supervising Physician Co-Signing Physician Notes I have performed a history and physical examination of this patient and reviewed the electronic medical record. Specifically, on physical examination there is no asterixis. I have discussed the case with RUBY Zhou. The above note reflects my findings, conclusions, and recommendations. Blas Adams MD Subjective Noted Hgb down to 6.9 today though pt denies any n/v, abd pain, no BMs. Noted abd is filling up again w ascites fluid. Review of Systems Review of Systems: All systems reviewed & are unremarkable except as noted in HPI & below Physical Exam Constitutional: + thin, + frail appearing, well groomed, cooperative and comfortable Eyes: PERRL, conjunctivae normal, anicteric sclerae ENMT: external ear and nose normal, oropharynx normal Respiratory: normal respiratory effort, lungs clear to auscultation Cardiovascular: RRR, no murmur, no edema Gastrointestinal (Abdomen): Inspection/Auscultation: + abdomen distended and + hypoactive bowel sounds Percussion/Palpation: + ascites; abdomen nontender Skin: no rashes, warm and dry no jaundice Neurologic: Motor/Sensory: no asterixis Psychiatric: Orientation: alert and oriented x 3 Affect: + tearful affect Lymphatic: no lymphedema Results & Data Vital Signs (Past 12 Hours) Vital Signs Temp Pulse Pulse Resp BP BP Pulse Ox 04/06/19 08:45 37.0 C 66 18 87/55 L 98 04/06/19 08:00 75 19 90/51 L 99 04/06/19 07:45 76 20 84/55 L 98 04/06/19 07:30 77 19 80/52 L 97 04/06/19 07:15 73 19 81/50 L 99 04/06/19 07:00 36.8 C 74 16 78/51 L 98 04/06/19 06:51 72 17 78/51 L 99 04/06/19 06:21 75 18 79/51 L 97 04/06/19 06:06 36.9 C 76 17 79/49 L 99 04/06/19 06:00 75 18 78/50 L 97 04/06/19 05:48 37 C 77 18 84/46 L 99 04/06/19 04:00 36.8 C 78 17 80/44 L 97 04/06/19 02:00 77 17 80/45 L 98 04/06/19 00:00 36.7 C 77 12 80/43 L 97
--- NOTE | 2019-04-06 10:46 | Critical Care Progress Note ---
Date of Service April 06, 2019 Assessment & Plan (1) Acute GI bleeding: Impression: 1. Upper GI bleed, esophageal variceal bleed versus gastropathy versus gastritis secondary to alcoholism and NSAID. 2. Liver cirrhosis, child Camarena 10, meld score of 19. 3. Portal hypertension with recurrent ascites, transudate of. 4. History of alcoholism. 5. Nicotine abuse. 6. No evidence of HE. Plan: 1. Appreciate GI input. 2. Start the patient midodrine 5 mg 3 times daily. 3. Refractory ascites, will perform bedside ultrasound. 4. Completing day 1 of albumin infusion 1.5 g/kg dose. 5. Recheck hematocrit after blood transfusion. 6. Patient kept n.p.o. for now given her drop in hematocrit. 7. Continue IV fluid. 8. Obtain echocardiogram to evaluate for PA pressure. 9. Continue Protonix drip. 10. Venodyne boots. 11. Core measures for the ICU has been met. 12. Discussed with the staff on rounds in details. Critical care time spent with the patient was 35 minutes. Subjective Still feeling weak all over, she is feeling hungry but due to the drop in hematocrit she was made nothing by mouth, no events overnight, blood pressure has been in the borderline, the patient denies any pain, her abdominal girth has been increasing since her last paracentesis. Review of Systems Review of Systems: No bowel movement to comment on melena or hematochezia, she did not have hematemesis, no shortness of breath, no abdominal pain. No dizziness or tremor, no rash, overall cachectic. Neurologically she seems nonfocal. Physical Exam Physical Exam: Borderline blood pressure, heart rate is variable but occasionally she is bradycardic, no JVD, central line site well-maintained, S1- S2, distant breath sounds, abdomen is distended, fluid shift was noted, cachexia in the periphery, no asterixis. Mentating very well, no evidence of encephalopathy. No oral lesion. Results & Data Vital Signs (Past 12 Hours) Vital Signs Temp Pulse Pulse Resp BP BP Pulse Ox 04/06/19 10:15 60 15 87/60 L 99 04/06/19 09:45 36.8 C 65 20 91/59 L 98 04/06/19 09:30 36.9 C 64 19 90/45 L 99 04/06/19 09:15 36.8 C 66 17 92/55 L 99 04/06/19 09:00 36.8 C 68 18 75/43 L 97 04/06/19 08:45 37.0 C 66 18 87/55 L 98 04/06/19 08:00 75 19 90/51 L 99 04/06/19 07:45 76 20 84/55 L 98 04/06/19 07:30 77 19 80/52 L 97 04/06/19 07:15 73 19 81/50 L 99 04/06/19 07:00 36.8 C 74 16 78/51 L 98 04/06/19 06:51 72 17 78/51 L 99 04/06/19 06:21 75 18 79/51 L 97 04/06/19 06:06 36.9 C 76 17 79/49 L 99 04/06/19 06:00 75 18 78/50 L 97 04/06/19 05:48 37 C 77 18 84/46 L 99 04/06/19 04:00 36.8 C 78 17 80/44 L 97 04/06/19 02:00 77 17 80/45 L 98 04/06/19 00:00 36.7 C 77 12 80/43 L 97 Laboratory Results Her hematocrit dropped down by 5 points to 19, received blood transfusion. Platelets has been stable. Diagnostic Findings No new imaging, I would perform bedside ultrasound to evaluate for recurrence of ascites. PG Care Time/CCT Critical Care Time: Yes Total Critical Care Time: 45
[2019-04-06] MEDS: NORMOSOL-R 1,000 ML IV SCH (10:57)
--- NOTE | 2019-04-06 11:35 | Anesthesiology Consultation ---
Date of Service April 06, 2019 Assessment & Plan (1) Encounter for pre-operative examination: Chart Review Chart Review: Acceptable Risk for Surgery and Patient NOT seen in Pre Admission Testing Consults Requested none History Surgery Operation Date: 04/04/19 08:30 Proposed Procedures p Esophagogastroduodenoscopy Dr Wily Adams MD Height/Weight Height: 5 ft Weight: 50.4 kg Allergies Allergy/AdvReac Type Severity Reaction Status Date / Time Bactrim Allergy Severe CHEST PAIN Unverified 12/26/16 19:35 sulfamethoxazole Allergy Severe CHEST PAIN Verified 04/02/19 04:20 trimethoprim Allergy Severe CHEST PAIN Verified 04/02/19 04:20 Medications Home Medications Medication Instructions Recorded Confirmed Last Taken albuterol sulfate 2.5 mg/3 mL 2.5 mg INHALATION Q4H PRN #1 ml 03/15/19 04/04/19 03/24/19 (0.083 %) solution for nebulization folic acid 1 mg tablet 1 mg PO DAILY #30 tab 03/15/19 04/04/19 03/24/19 multivitamin tablet 1 tab PO DAILY 03/15/19 04/04/19 03/24/19 mecobalamin (vitamin B12) 1,000 1,000 mcg SL DAILY #30 tab 03/16/19 04/04/19 03/24/19 mcg disintegrating tablet,sublingual thiamine HCl (vitamin B1) 100 mg 100 mg PO DAILY #30 tab 03/16/19 04/04/19 03/24/19 tablet buspirone 5 mg PO DAILY #30 tab 03/22/19 04/04/19 03/24/19 escitalopram oxalate 5 mg PO DAILY #30 tab 03/22/19 04/04/19 03/24/19 spironolactone 50 mg PO QAM #60 tab 03/22/19 04/04/19 03/24/19 diclofenac sodium [Voltaren] 4 gm TOP QID #100 gm 03/30/19 04/04/19 Unknown vancomycin [Firvanq] 125 mg PO QID 04/02/19 04/04/19 Unknown Active Medications Generic Name Dose Route Start Last Admin Trade Name Freq PRN Reason Stop Dose Admin Pantoprazole Sodium 40 mg/ 100 mls @ 20 mls/hr 04/04/19 03:45 04/06/19 07:14 Dextrose IV 05/04/19 03:44 20 mls/hr Q5H CHEN Administration Parenteral Electrolytes 1,000 mls @ 70 mls/hr 04/04/19 15:15 04/06/19 10:57 Normosol-R IV 05/04/19 15:14 70 mls/hr .[id number] CHEN Administration Potassium Chloride 20 meq in 100 mls @ 50 mls/hr 04/06/19 09:00 04/06/19 10:53 K Guille / Wtr IV 04/06/19 14:59 50 mls/hr Q2H CHEN Administration Midodrine 5 mg 04/05/19 17:00 04/06/19 07:30 Proamatine PO 05/05/19 16:59 5 mg TID@0800,1200,1700 CHEN Administration Octreotide Acetate 50 mcg 04/05/19 14:00 04/06/19 05:59 Sandostatin SQ 05/05/19 13:59 50 mcg Q8H CHEN Administration NPO Date Last Intake of Fluids: 04/03/19 Time Last Intake of Fluids: 23:59 Date Last Intake of Solids: 04/03/19 Time Last Intake of Solids: 23:59 Past Medical History Medical History Pneumonia (Acute) Neuropathy (Acute) Heartburn (Acute) Depression with anxiety (Acute) Alcohol dependence (Acute) Alcoholic cirrhosis of liver Hyponatremia Herpes simplex Tobacco abuse ETOH abuse Prolonged INR Acute anemia Elevated LFTs Ascites due to alcoholic cirrhosis Hypomagnesemia Hypokalemia Anxiety and depression Hypomagnesemia Hypoalbuminemia Diabetes Heart disease Abdominal distension Abdominal pain Acute electrocardiogram changes C. difficile colitis Dehydration E. coli UTI Elevated WBC count Leukocytosis Leukocytosis Lumbar pain Nausea vomiting and diarrhea Rash Past Family History Family History Sister Drug abuse Father Stroke Hypertension Dyslipidemia (high LDL; low HDL) Tobacco abuse Mother Depression Stroke Hypertension Other No significant family history Past Surgical History Surgical History H/O dilation and curettage History of abdominal paracentesis 3L in February 2019 Previous section Social History Smoking Status: Current every day smoker tobacco type: cigarettes Smoking cigarettes per day: 10 Do You Dip or Chew Tobacco: No Hx Alcohol Use: No Alcohol type: beer and hard liquor alcohol intake frequency: other Alcohol Intake Frequency Comment: Quit 2 weeks ago Hx Substance Use: No Physical Exam Vital Signs Last Vital Signs Temp 36.8 C 04/06/19 11:00 Pulse 65 04/06/19 11:06 Resp 18 04/06/19 11:06 BP 84/50 L 04/06/19 11:06 Pulse Ox 96 04/06/19 11:06 Testing Laboratory Results 04/06/19 04:17 04/06/19 04:17 PT 13.4 Seconds (9.0-12.0) H 04/06/19 04:17 INR 1.3 (0.9-1.1) H 04/06/19 04:17 APTT 37.2 Seconds (21.0-31.0) H 04/05/19 04:12 Blood Type O Positive 04/04/19 03:23 Antibody Screen NEGATIVE 04/04/19 03:23 04/04/19 12:00 Gram Stain - Final Abdomen, Right Lower Quadrant Aerobic and Anaerobic Culture - Preliminary No growth to date. s/p 2 unit of PRBC since Hgb of 6.9
[2019-04-06] MEDS ORDERED: KETAMINE HCL INJ 50 MG/ML 10 ML VIAL ONE (12:10)
[2019-04-06] MEDS ORDERED: MIDAZOLAM HCL 1 MG/ML 2ML VIAL ONE (12:10)
[2019-04-06 12:20] LABS: Hematocrit (blood only) 29.9 % (37-47); Hemoglobin 10.4 g/dL (12.0-16.0)
--- NOTE | 2019-04-06 12:51 | GI REPORT ---
Patient Name: Judi Nunn Procedure Date: 04/06/2019 12:31 PM Date of : 1970 Admit Type: Inpatient Age: 48 Gender: Female Attending MD: Blas Adams MD Procedure: Upper GI endoscopy Providers: Blas Adams MD Referring MD: Miguel Ángel Neal Indications: Recent gastrointestinal bleeding, Follow-up of acute gastric ulcer with hemorrhage Medicines: Monitored Anesthesia Care Complications: No immediate complications. Estimated blood loss: None. Estimated Blood Loss: Estimated blood loss: none. Procedure: Pre-Anesthesia Assessment: - Prior to the procedure, a History and Physical was performed, and patient medications, allergies and sensitivities were reviewed. The patient's tolerance of previous anesthesia was reviewed. - ASA Grade Assessment: IV - A patient with severe systemic disease that is a constant threat to life. After obtaining informed consent, the endoscope was passed under direct vision. Throughout the procedure, the patient's blood pressure, pulse, and oxygen saturations were monitored continuously. The Endoscope was introduced through the mouth, and advanced to the third part of duodenum. The upper GI endoscopy was accomplished with ease. The patient tolerated the procedure well. Findings: One cratered esophageal ulcer and no stigmata of recent bleeding was found at the gastroesophageal junction. Three non-obstructing non-bleeding cratered gastric ulcers of significant severity with a visible vessel were found in the gastric antrum. The largest lesion was 30 mm in largest dimension. Area was successfully injected with 2 mL of a 1:10,000 solution of epinephrine for hemostasis. Coagulation for bleeding prevention using bipolar probe was successful. There is no endoscopic evidence of bleeding in the entire examined stomach. A single erosion was found in the duodenal bulb. Impression: - Esophageal ulcer. - Non-obstructing non-bleeding gastric ulcers with a visible vessel. Injected. Treated with bipolar cautery. - Duodenal erosion. - No specimens collected. Recommendation: - Return patient to ICU for ongoing care. Blas Adams M.D. Blas Adams MD 04/06/2019 12:51:03 PM This report has been signed electronically. Note Initiated On: 04/06/2019 12:31 PM Number of Addenda: 0 I attest to the content of the Intraoperative Record and orders documented therein, exceptions below {[id number]}
[2019-04-06] MEDS ORDERED: PROPOFOL IV EMULSION 10 MG/ML 20 ML VIAL IV ONE (12:54)
[2019-04-06] MEDS ORDERED: PHENYLEPHRINE 100MCG/ML 5ML SYR ONE (12:57)
--- NOTE | 2019-04-06 13:13 | Anesthesiology Progress Note ---
Date of Service April 06, 2019 Anesthesia Post Procedure Vital Signs Vital Signs: Temp Pulse Pulse Resp BP BP BP 04/06/19 13:06 77 16 78/55 L 04/06/19 12:54 79 16 83/54 L 04/06/19 12:45 83 16 87/52 L 04/06/19 12:15 36.6 C 68 16 76/50 L 04/06/19 11:06 65 18 84/50 L 04/06/19 11:00 36.8 C 59 L 18 84/50 L 04/06/19 10:15 60 15 87/60 L 04/06/19 09:45 36.8 C 65 20 91/59 L 04/06/19 09:30 36.9 C 64 19 90/45 L 04/06/19 09:15 36.8 C 66 17 92/55 L 04/06/19 09:00 36.8 C 68 18 75/43 L 04/06/19 08:45 37.0 C 66 18 87/55 L 04/06/19 08:00 75 19 90/51 L 04/06/19 07:45 76 20 84/55 L 04/06/19 07:30 77 19 80/52 L 04/06/19 07:15 73 19 81/50 L 04/06/19 07:00 36.8 C 74 16 78/51 L 04/06/19 06:51 72 17 78/51 L 04/06/19 06:21 75 18 79/51 L 04/06/19 06:06 36.9 C 76 17 79/49 L 04/06/19 06:00 75 18 78/50 L 04/06/19 05:48 37 C 77 18 84/46 L 04/06/19 04:00 36.8 C 78 17 80/44 L 04/06/19 02:00 77 17 80/45 L 04/06/19 00:00 36.7 C 77 12 80/43 L 04/05/19 22:00 73 16 83/46 L 04/05/19 20:00 36.8 C 78 18 80/48 L 04/05/19 18:00 72 18 90/53 L 04/05/19 17:13 73 22 89/55 L 04/05/19 16:00 36.6 C 75 15 89/57 L 04/05/19 15:00 74 20 85/54 L 04/05/19 14:00 80 21 91/57 L Pulse Ox 04/06/19 13:06 95 04/06/19 12:54 95 04/06/19 12:45 96 04/06/19 12:15 98 04/06/19 11:06 96 04/06/19 11:00 96 04/06/19 10:15 99 04/06/19 09:45 98 04/06/19 09:30 99 04/06/19 09:15 99 04/06/19 09:00 97 04/06/19 08:45 98 04/06/19 08:00 99 04/06/19 07:45 98 04/06/19 07:30 97 04/06/19 07:15 99 04/06/19 07:00 98 04/06/19 06:51 99 04/06/19 06:21 97 04/06/19 06:06 99 04/06/19 06:00 97 04/06/19 05:48 99 04/06/19 04:00 97 04/06/19 02:00 98 04/06/19 00:00 97 04/05/19 22:00 99 04/05/19 20:00 100 04/05/19 18:00 100 04/05/19 17:13 100 04/05/19 16:00 100 04/05/19 15:00 100 04/05/19 14:00 Pain Intensity Back: Pain Intensity: 0 Transfer of Care Handoff Completed per policy Notes Mental Status: alert / awake / arousable and participated in evaluation Nausea / Vomiting: adequately controlled Pain: adequately controlled Airway Patency, RR, SpO2: stable & adequate BP & HR: stable & adequate Hydration State: stable & adequate Anesthetic Complications: no major complications apparent and Pt Satisfied with anesthetic care Notes: Pt remains hypotensive, but she is back to her preoperative baseline with respect to blood pressure and she is asymptomatic. Ok to return to ICU.
[2019-04-06] MEDS: cefTRIAXone SODIUM 1,000 MG in DEXTROSE 5% 50 ML IV SCH (13:29)
[2019-04-06] MEDS ORDERED: HYDROmorphone INJ 0.5 MG/0.5 ML SYR IV PRN (13:44)
[2019-04-06] MEDS ORDERED: HYDROmorphone INJ 1 MG/ML SYRINGE ONE (13:50)
[2019-04-06] MEDS: ALBUMIN 5% 250 ML IV SCH ×2 (14:40→14:41)
[2019-04-06] MEDS: NOREPINEPHRINE BIT INJ 8 MG in DEXTROSE 5% 500 ML IV SCH (14:59)
--- NOTE | 2019-04-06 15:11 | Procedure Note ---
Procedure Note Date of Service April 06, 2019 Coding CPT Codes Abdomen - Abdominal: Abdominal Paracentesis (diagnostic or therapeutic); Without imaging ([id number])
[2019-04-06 15:25] LABS: Glucose Peritoneal Fluid 105 mg/dl
[2019-04-06 15:31] LABS: LDH Peritoneal Fluid 23 U/L; Total Protein Peritoneal Fluid 0.9 g/dl
[2019-04-06] MEDS: MIDODRINE HCL 10 MG TAB PO SCH (15:56)
[2019-04-06 16:15] LABS: Appearance Peritoneal Fluid CLEAR; Color Peritoneal Fluid YELLOW; Mononuclear WBC Peritoneal 72.1 %; Polynuclear WBC Peritoneal 27.9 %; RBC Peritoneal Fluid (A) < 3000 /uL; WBC Peritoneal Fluid (A) 62 /ul (0-300)
[2019-04-06 18:35] LABS: Hematocrit (blood only) 29.1 % (37-47)
[2019-04-07 02:14] LABS: Basophils # (auto) 0.09 K/uL (0-0.2); Basophils % (auto) 0.7 %; Eosinophils # (auto) 0.45 K/uL (0-0.5); Eosinophils % (auto) 3.3 %; Hematocrit (blood only) 28.5 % (37-47); Immature Granulocytes # (auto) 0.06 K/uL (0.00-0.02); Immature Granulocytes % (auto) 0.4 %; Lymphocytes # (auto) 3.16 K/uL (1.2-3.4); Lymphocytes % (auto) 22.8 %; Mean Corpuscular Hgb Conc 35.1 g/dL (32-36); Mean Corpuscular Volume 86.6 fL (80-100); Mean Platelet Volume 10.1 fL (7.4-10.4); Monocytes # (auto) 1.03 K/uL (0.11-0.59); Monocytes % (auto) 7.4 %; Neutrophils # (auto) 9.05 K/uL (1.4-6.5); Neutrophils % (auto) 65.4 %; Platelet Count 158 K/uL (130-400); RDW Standard Deviation 56.7 fL (36.4-46.3); Red Blood Count 3.29 M/uL (4.2-5.4); White Blood Count 13.84 K/uL (4.8-10.8)
[2019-04-07 02:23] LABS: INR 1.4 (0.9-1.1); Prothrombin Time 13.6 Seconds (9.0-12.0)
[2019-04-07 02:40] LABS: Albumin Globulin Ratio 1.2 (0.9-2); Albumin Level 2.4 gm/dl (3.4-5.0); BUN Creatinine Ratio 27.8 (10-20); Bilirubin,Total 1.6 mg/dl (0.2-1); Calcium 7.7 mg/dl (8.5-10.1); Creatinine Clr Calc Pharmacy 39.9 ml/min; Est GFR (African American) 59.5; Est GFR (Non-African American) 51.3; Magnesium 1.6 mg/dl (1.8-2.4); Potassium 3.9 mmol/L (3.5-5.1); Total Protein 4.4 gm/dl (6.4-8.2)
[2019-04-07] MEDS: NORMOSOL-R 1,000 ML IV SCH ×2 (03:02→14:55)
[2019-04-07] MEDS: PANTOprazole 40 MG in DEXTROSE 5% 100 ML IV SCH ×5 (03:02→23:15)
[2019-04-07] MEDS: OCTREOTIDE ACETATE 100 MCG/ML VIAL SQ SCH ×3 (06:16→21:22)
--- NOTE | 2019-04-07 07:10 | Family Medicine Progress Note ---
Date of Service April 07, 2019 Assessment & Plan (1) Acute GI bleedinyo F with a PMHx significant for alcohol abuse, alcoholic cirrhosis with ascites, recent admission for C diff, admitted with GI bleed possibly secondary to bleeding Gastric ulcer. Acute GI Bleed -s/p multiple transfusions, Hgb currently stable. -Repeat EGD on 04/06 with similar findings of esophageal and gastric ulcers, this time with a visible vessel that was treated for hemostasis. -Gastroenterology recommendations appreciated -Continue Protonix -continue to trend H/H, advise continual alcohol abstinence. Avoid NSAID use. -will continue to monitor Hypotension -continue midrodrine -levophed D/C 04/07 -will continue to monitor Abdominal ascites/Hx of cirrhosis -Pt with meld score of 14 -Refractory ascites, consider repeat paracentesis, possible TIPS. -INR 1.2 from 1.7, s/p Vit K -s/p multiple paracentesis, 5L of yellow fluid removed. ELECTROLYTE abnormalities (Hypomagnesemia, Hypocalcemia, Hypokalemia) -replace potassium, mag, calcium as needed -will continue to monitor ALCOHOL CESSATION -counselor marriage and family on alcohol cessation FEN/GI: clear liquid diet DVT proph: chemo prophylaxis contraindicated CODE STATUS: full Supervising Physician Co-Signing Physician Notes I personally examined the patient and verified all [place] points of history and exam, discussed case, and agree with decision making with Dr Barnett. had vomiting twice today. none for a little while. no significant abdominal pain. hungry. vitals noted nad breathing unlabored no accessory muscles good effort. abd soft nt no guarding/rebound/rigidity, sl increasing fluid wave. No pallor or icterus. no focal neuro deficits at rest. UGI bleed, acute blood loss anemia, early hypovolemic/hemorrhagic shock present on admission -Relates to peptic ulcer disease - Hgb stable (follow), but with vomiting and ongoing borderline BP - need to follow closely -Ongoing acid suppression cirrhosis with ascites - low BP may also be related to fluid shifting from ascites/portal HTN. ICU pursuing viability of ?TIPS. Ongoing medical management as per GI coagulopathy - can consider FFP if she rebleeds. Subjective Judi stated that she was nauseated this morning. Had been throwing up brown fluid. Had no recent BM after the EGD yesterday so not sure if her stools are still dark. Denies JAMES, chest pain, SOB, palps. Review of Systems Review of Systems: All systems reviewed & are unremarkable except as noted in HPI & below Physical Exam Physical Exam: General: Alert, orientedx3. HEENT: NC/AT, PERRLA, EOMI, oropharynx moist. Chest: Nontender to palpation. CV: RRR, no murmurs appreciated. Resp: Breath sounds clear bilaterally Abdomen: Soft, tender, distended. Extremities: no edema in lower extremities today. Results & Data Vital Signs (Past 12 Hours) Vital Signs Temp Pulse Resp BP Pulse Ox 04/07/19 06:00 60 10 L 101/57 L 94 04/07/19 05:30 61 5 L 93/53 L 94 04/07/19 05:00 63 9 L 85/51 L 95 04/07/19 04:30 63 8 L 87/48 L 95 04/07/19 04:00 36.8 C 63 10 L 79/46 L 93 04/07/19 03:30 63 10 L 83/49 L 95 04/07/19 03:19 66 7 L 77/49 L 93 04/07/19 03:00 70 10 L 79/47 L 93 04/07/19 02:30 69 17 81/50 L 95 04/07/19 02:00 71 13 80/49 L 96 04/07/19 01:30 67 11 L 84/50 L 95 04/07/19 01:00 66 10 L 85/48 L 95 04/07/19 00:00 36.8 C 62 15 96/53 L 97 04/06/19 23:00 68 11 L 90/55 L 95 04/06/19 22:00 71 15 86/55 L 97 04/06/19 21:30 67 14 92/56 L 97 04/06/19 21:15 64 15 87/49 L 97 04/06/19 21:00 67 14 88/54 L 97 04/06/19 20:30 58 L 15 96/52 L 96 04/06/19 20:00 36.5 C 61 15 104/49 L 97 04/06/19 19:30 53 L 13 111/61 96 04/06/19 19:15 51 L 14 108/57 L 96 Laboratory Results Laboratory Results - last 24 hr 04/04/19 04/06/19 04/06/19 03:23 14:30 18:21 WBC RBC Hgb 10.0 L Hct 29.1 L MCV MCH MCHC RDW Std Deviation RDW Coeff of Spenser Plt Count MPV Immature Gran % (Auto) Neut % (Auto) Lymph % (Auto) [place] % (Auto) Eos % (Auto) Baso % (Auto) Immature Gran # (Auto) Neut # (Auto) Lymph # (Auto) [place] # (Auto) Eos # (Auto) Baso # (Auto) PT INR Sodium Potassium Chloride Carbon Dioxide Anion Gap BUN Creatinine Est Cr Clr Drug Dosing Est GFR ( Amer) Est GFR (Non-Af Amer) BUN/Creatinine Ratio Glucose Calcium Magnesium Total Bilirubin AST ALT Alkaline Phosphatase Total Protein Albumin Globulin Albumin/Globulin Ratio Peritoneal Color YELLOW Peritoneal Appearance CLEAR Peritoneal WBC 62 Peritoneal RBC < 3000 Mononuclear WBCs % 72.1 Polynuclear WBCs % 27.9 Peritoneal Tot Protein 0.9 Peritoneal LDH 23 Peritoneal Glucose 105 Crossmatch See Detail 04/07/19 04/07/19 04/07/19 02:04 02:04 02:04 WBC 13.84 H RBC 3.29 L Hgb 10.0 L Hct 28.5 L MCV 86.6 D MCH 30.4 MCHC 35.1 RDW Std Deviation 56.7 H RDW Coeff of Spenser 18.0 H Plt Count 158 MPV 10.1 Immature Gran % (Auto) 0.4 Neut % (Auto) 65.4 Lymph % (Auto) 22.8 [place] % (Auto) 7.4 Eos % (Auto) 3.3 Baso % (Auto) 0.7 Immature Gran # (Auto) 0.06 H Neut # (Auto) 9.05 H Lymph # (Auto) 3.16 [place] # (Auto) 1.03 H Eos # (Auto) 0.45 Baso # (Auto) 0.09 PT 13.6 H INR 1.4 H Sodium 139 Potassium 3.9 D Chloride 115 H Carbon Dioxide 18 L Anion Gap 6.0 BUN 34 H Creatinine 1.24 H D Est Cr Clr Drug Dosing 39.9 Est GFR ( Amer) 59.5 Est GFR (Non-Af Amer) 51.3 BUN/Creatinine Ratio 27.8 H Glucose 88 Calcium 7.7 L Magnesium 1.6 L Total Bilirubin 1.6 H D AST 50 H ALT 21 Alkaline Phosphatase 97 Total Protein 4.4 L Albumin 2.4 L Globulin 2.0 L Albumin/Globulin Ratio 1.2 Peritoneal Color Peritoneal Appearance Peritoneal WBC Peritoneal RBC Mononuclear WBCs % Polynuclear WBCs % Peritoneal Tot Protein Peritoneal LDH Peritoneal Glucose Crossmatch 04/07/19 10:33 WBC RBC Hgb 10.7 L Hct 30.8 L MCV MCH MCHC RDW Std Deviation RDW Coeff of Spenser Plt Count MPV Immature Gran % (Auto) Neut % (Auto) Lymph % (Auto) [place] % (Auto) Eos % (Auto) Baso % (Auto) Immature Gran # (Auto) Neut # (Auto) Lymph # (Auto) [place] # (Auto) Eos # (Auto) Baso # (Auto) PT INR Sodium Potassium Chloride Carbon Dioxide Anion Gap BUN Creatinine Est Cr Clr Drug Dosing Est GFR ( Amer) Est GFR (Non-Af Amer) BUN/Creatinine Ratio Glucose Calcium Magnesium Total Bilirubin AST ALT Alkaline Phosphatase Total Protein Albumin Globulin Albumin/Globulin Ratio Peritoneal Color Peritoneal Appearance Peritoneal WBC Peritoneal RBC Mononuclear WBCs % Polynuclear WBCs % Peritoneal Tot Protein Peritoneal LDH Peritoneal Glucose Crossmatch Medications Administered Home Medications albuterol sulfate 2.5 mg/3 mL (0.083 %) solution for nebulization 2.5 mg INHALATION Q4H PRN #1 ml 03/15/19 [History Confirmed 04/04/19] folic acid 1 mg tablet 1 mg PO DAILY #30 tab 03/15/19 [Rx Confirmed 04/04/19] multivitamin tablet 1 tab PO DAILY 03/15/19 [History Confirmed 04/04/19] mecobalamin (vitamin B12) 1,000 mcg disintegrating tablet,sublingual 1,000 mcg SL DAILY #30 tab 03/16/19 [Rx Confirmed 04/04/19] thiamine HCl (vitamin B1) 100 mg tablet 100 mg PO DAILY #30 tab 03/16/19 [Rx Confirmed 04/04/19] buspirone 5 mg PO DAILY #30 tab 03/22/19 [Rx Confirmed 04/04/19] escitalopram oxalate 5 mg PO DAILY #30 tab 03/22/19 [Rx Confirmed 04/04/19] spironolactone 50 mg PO QAM #60 tab 03/22/19 [Rx Confirmed 04/04/19] diclofenac sodium [Voltaren] 4 gm TOP QID #100 gm 03/30/19 [Rx Confirmed 04/04/19] vancomycin [Firvanq] 125 mg PO QID 04/02/19 [History Confirmed 04/04/19] Active Medications Heparin Sodium (Beef Lung) (Heparin Sod 10 Unit/Ml Flush) 5 ml FLUSH PRN PRN PRN Reason: Flush Stop: 05/05/19 22:53 Hydromorphone HCl (Dilaudid) 0.5 mg IV Q4H PRN PRN Reason: Severe Pain Stop: 04/07/19 13:43 Last Admin: 04/07/19 02:33 Dose: 0.5 mg Documented by: Pantoprazole Sodium 40 mg/ (Dextrose) 100 mls @ 20 mls/hr IV Q5H CHEN Stop: 05/04/19 03:44 Last Admin: 04/07/19 08:58 Dose: 20 mls/hr Documented by: Sodium Chloride (Nss) 250 mls @ 15 mls/hr IV .[id number] PRN PRN Reason: For Transfusion Stop: 05/04/19 06:57 Parenteral Electrolytes (Normosol-R) 1,000 mls @ 70 mls/hr IV .[id number] CHEN Stop: 05/04/19 15:14 Last Admin: 04/07/19 03:02 Dose: 70 mls/hr Documented by: Sodium Chloride (Nss) 250 mls @ 15 mls/hr IV .[id number] PRN PRN Reason: For Transfusion Stop: 05/06/19 05:16 Ceftriaxone Sodium 1,000 mg/ (Dextrose) 50 mls @ 100 mls/hr IV Q24H CHEN Stop: 04/12/19 13:29 Last Infusion: 04/06/19 14:40 Dose: Infused Documented by: Norepinephrine Bitartrate 8 mg (/ Dextrose) 508 mls @ 0 mls/hr IV .Q0M CHEN; Protocol Stop: 05/06/19 14:59 Last Titration: 04/07/19 11:57 Dose: 0 mcg/kg/min, 0 mls/hr Documented by: Midodrine (Proamatine) 10 mg PO TID@0800,1200,1700 CHEN Stop: 05/06/19 16:59 Last Admin: 04/07/19 09:03 Dose: 10 mg Documented by: Octreotide Acetate (Sandostatin) 50 mcg SQ Q8H CHEN Stop: 05/05/19 13:59 Last Admin: 04/07/19 06:16 Dose: 50 mcg Documented by: Ondansetron HCl (Zofran) 4 mg IV Q6H PRN PRN Reason: NAUSEA/VOMITING Stop: 05/04/19 06:13 PG Care Time/CCT Total # of Minutes Spent Total Time Spent with Patient: Total time spent is greater than 50% in coordination of care (as documented) at patient's floor/unit and/or counseling patient:
--- NOTE | 2019-04-07 08:30 | Anesthesiology Progress Note ---
Date of Service April 07, 2019 Anesthesia Post Procedure Vital Signs Vital Signs: Temp Pulse Pulse Resp BP BP BP 04/07/19 06:00 60 10 L 101/57 L 04/07/19 05:30 61 5 L 93/53 L 04/07/19 05:00 63 9 L 85/51 L 04/07/19 04:30 63 8 L 87/48 L 04/07/19 04:00 36.8 C 63 10 L 79/46 L 04/07/19 03:30 63 10 L 83/49 L 04/07/19 03:19 66 7 L 77/49 L 04/07/19 03:00 70 10 L 79/47 L 04/07/19 02:30 69 17 81/50 L 04/07/19 02:00 71 13 80/49 L 04/07/19 01:30 67 11 L 84/50 L 04/07/19 01:00 66 10 L 85/48 L 04/07/19 00:00 36.8 C 62 15 96/53 L 04/06/19 23:00 68 11 L 90/55 L 04/06/19 22:00 71 15 86/55 L 04/06/19 21:30 67 14 92/56 L 04/06/19 21:15 64 15 87/49 L 04/06/19 21:00 67 14 88/54 L 04/06/19 20:30 58 L 15 96/52 L 04/06/19 20:00 36.5 C 61 15 104/49 L 04/06/19 19:30 53 L 13 111/61 04/06/19 19:15 51 L 14 108/57 L 04/06/19 19:04 55 L 17 96/51 L 04/06/19 18:30 59 L 17 110/57 L 04/06/19 18:15 51 L 16 106/54 L 04/06/19 18:00 54 L 16 100/56 L 04/06/19 17:45 54 L 18 98/53 L 04/06/19 17:30 52 L 19 101/52 L 04/06/19 17:15 59 L 20 93/53 L 04/06/19 17:00 64 21 87/50 L 04/06/19 16:45 67 24 93/50 L 04/06/19 16:30 66 12 84/49 L 04/06/19 16:15 67 11 L 82/51 L 04/06/19 16:00 36.6 C 68 18 86/53 L 04/06/19 15:45 65 11 L 91/52 L 04/06/19 15:30 63 11 L 88/49 L 04/06/19 15:15 59 L 12 88/49 L 04/06/19 15:00 66 11 L 82/50 L 04/06/19 13:06 77 16 78/55 L 04/06/19 12:54 79 16 83/54 L 04/06/19 12:45 83 16 87/52 L 04/06/19 12:15 36.6 C 68 16 76/50 L 04/06/19 11:06 65 18 84/50 L 04/06/19 11:00 36.8 C 59 L 18 84/50 L 04/06/19 10:15 60 15 87/60 L 04/06/19 09:45 36.8 C 65 20 91/59 L 04/06/19 09:30 36.9 C 64 19 90/45 L 04/06/19 09:15 36.8 C 66 17 92/55 L 04/06/19 09:00 36.8 C 68 18 75/43 L 04/06/19 08:45 37.0 C 66 18 87/55 L Pulse Ox 04/07/19 06:00 94 04/07/19 05:30 94 04/07/19 05:00 95 04/07/19 04:30 95 04/07/19 04:00 93 04/07/19 03:30 95 04/07/19 03:19 93 04/07/19 03:00 93 04/07/19 02:30 95 04/07/19 02:00 96 04/07/19 01:30 95 04/07/19 01:00 95 04/07/19 00:00 97 04/06/19 23:00 95 04/06/19 22:00 97 04/06/19 21:30 97 04/06/19 21:15 97 04/06/19 21:00 97 04/06/19 20:30 96 04/06/19 20:00 97 04/06/19 19:30 96 04/06/19 19:15 96 04/06/19 19:04 97 04/06/19 18:30 95 04/06/19 18:15 93 04/06/19 18:00 93 04/06/19 17:45 92 04/06/19 17:30 93 04/06/19 17:15 93 04/06/19 17:00 93 04/06/19 16:45 94 04/06/19 16:30 93 04/06/19 16:15 93 04/06/19 16:00 92 04/06/19 15:45 93 04/06/19 15:30 93 04/06/19 15:15 94 04/06/19 15:00 93 04/06/19 13:06 95 04/06/19 12:54 95 04/06/19 12:45 96 04/06/19 12:15 98 04/06/19 11:06 96 04/06/19 11:00 96 04/06/19 10:15 99 04/06/19 09:45 98 04/06/19 09:30 99 04/06/19 09:15 99 04/06/19 09:00 97 04/06/19 08:45 98 Pain Intensity Back: Pain Intensity: 0 Notes Mental Status: alert / awake / arousable and participated in evaluation Nausea / Vomiting: adequately controlled Pain: adequately controlled Airway Patency, RR, SpO2: stable & adequate BP & HR: stable & adequate Hydration State: stable & adequate Anesthetic Complications: no major complications apparent Notes: pt resting comfortably. in no acute distress. vss.
[2019-04-07] MEDS: MIDODRINE HCL 10 MG TAB PO SCH ×3 (09:03→16:43)
[2019-04-07] MEDS ORDERED: MAGNESIUM SULFATE / D5W 1 GM/100 ML BAG IV ONE (09:15)
--- NOTE | 2019-04-07 09:55 | Gastroenterology Progress Note ---
Date of Service April 07, 2019 Assessment & Plan (1) Alcoholic cirrhosis of liver: (2) C. difficile colitis: (3) Acute GI bleeding: Pt is a 48 y/o female w hx of ETOH cirrhosis (sober x 2 weeks), complicated by ascites developed who is currently admitted for coffee ground emesis, melena, anemia in setting of Ibuprofen use. She had EGD done on 04/04 which showed no signs of esophageal varices but she had non bleeding esophageal and gastric ulcer. EGD repeated on 04/[address] blood ct had dropped which showed esophageal ulcer, large gastric ulcer that wasn't actively bleeding but injected w Epinephrine and cauterized, + duodenal erosion. H/H stable around 10 w/o any more melena. MELD 14 Beside paracentesis done by ICU team & 04/07 - 5L ascites removed each time, no signs of SBP by cell ct Repeat Cdiff gene +, toxin - Hpylori stool not detected - CL diet; possible advancement to [place] by afternoon if H/H stable w/o futher s/s of GI bleeding - Continue PPI gtt - Continue Octreotide injection, Midodrine - ICU team possibly going to [place] Levophed - Not sure if she's a TIPS candidate for ascites control. Will need to obtain at least echocardiogram to r/o congestive heart problems, CT liver. Unfortunately BP soft for diuretic management and we may for now need to repeat paracentesis and continue Albumin support if she's reaccumulating ascites. - She had been advised to strictly abstain from ETOH, recommended going back to rehab as previously been successful to be sober x 2yrs. Perhaps case management can help arrange for this prior to her DC. - Upon DC we can help arrange for GI f/u for cirrhosis care; she already has appt to see Dr. Mara Gaona on 05/09/19. Supervising Physician Co-Signing Physician Notes I saw and evaluated the patient. She was found to have a large gastric ulcer and underwent 2 upper endoscopies earlier this week. There does not appear to be any recurrence of bleeding at this time. I did have a long discussion with the ICU service as they have had difficulty with her ascites as diuretics are not presently an option and she has renal insufficiency. Physical examination No obvious distress, abdomen with moderate ascites Impression: Patient with a history of alcoholic liver disease resulting in cirrhosis and ascites. Presented with a large gastric ulcer and is status post upper endoscopy x2. Given the refractory ascites and inability to use intravenous diuretics perhaps referral to a tertiary center would be of benefit at this time. They could do an evaluation to determine if a TIPS procedure could be used as a salvage option for the patient. Subjective Pt started on Levophed yesterday, BP 101/57 HR 60 this AM She denies any more BMs since repeat EGD yesterday Hgb stable around 10. + mild nausea, denies any abd pain She did have another bedside paracentesis by ICU team yesterday, 5L ascites removed, fluid cell ct w/o signs of SBP Review of Systems Review of Systems: All systems reviewed & are unremarkable except as noted in HPI & below Physical Exam Constitutional: + ill appearing, + thin, + frail appearing, well groomed, cooperative and comfortable Eyes: PERRL, conjunctivae normal, anicteric sclerae ENMT: external ear and nose normal, oropharynx normal Respiratory: normal respiratory effort, lungs clear to auscultation Cardiovascular: RRR, no murmur, no edema Gastrointestinal (Abdomen): Inspection/Auscultation: + hypoactive bowel sounds Percussion/Palpation: abdomen soft and + ascites; abdomen nontender Skin: no rashes, warm and dry no jaundice Neurologic: Motor/Sensory: no asterixis Psychiatric: Orientation: alert, oriented x 3, oriented to person and cooperative Mood: + depressed mood Lymphatic: no lymphedema Results & Data Vital Signs (Past 12 Hours) Vital Signs Temp Pulse Resp BP Pulse Ox 04/07/19 06:00 60 10 L 101/57 L 94 04/07/19 05:30 61 5 L 93/53 L 94 04/07/19 05:00 63 9 L 85/51 L 95 04/07/19 04:30 63 8 L 87/48 L 95 04/07/19 04:00 36.8 C 63 10 L 79/46 L 93 04/07/19 03:30 63 10 L 83/49 L 95 04/07/19 03:19 66 7 L 77/49 L 93 04/07/19 03:00 70 10 L 79/47 L 93 04/07/19 02:30 69 17 81/50 L 95 04/07/19 02:00 71 13 80/49 L 96 06/28/19 01:30 67 11 L 84/50 L 95 04/07/19 01:00 66 10 L 85/48 L 95 04/07/19 00:00 36.8 C 62 15 96/53 L 97 04/06/19 23:00 68 11 L 90/55 L 95 04/06/19 22:00 71 15 86/55 L 97
[2019-04-07] MEDS ORDERED: MAGNESIUM SULFATE / D5W 1 GM/100 ML BAG IV SCH (10:30)
[2019-04-07 10:45] LABS: Hematocrit (blood only) 30.8 % (37-47); Hemoglobin 10.7 g/dL (12.0-16.0)
--- NOTE | 2019-04-07 14:19 | Critical Care Progress Note ---
Date of Service April 07, 2019 Assessment & Plan (1) Acute GI bleeding: Impression: 1. Upper GI bleed, esophageal variceal bleed versus gastropathy versus gastritis secondary to alcoholism and NSAID. 2. Liver cirrhosis, child Camarena 10, meld score of 19. 3. Portal hypertension with recurrent ascites, transudate of. 4. History of alcoholism. 5. Nicotine abuse. 6. No evidence of HE. Plan: 1. Appreciate GI input. Patient would benefit from TIPS evaluation. Will arrange to transfer to a tertiary care center. Discussed with Dr. Keating and Dr. Neal. 2. Agree with increasing the dose of midodrine to 10 mg 3 times daily.. 3. Refractory ascites, status post paracentesis x2 in 2 days each with 5 L of fluid removal, kidney function improved after reducing the intra-abdominal pressure.. 4. Blood pressure responded to albumin. 5. Hematocrit has been stable, GI bleeding secondary to peptic ulcer disease, large burden of gastric ulcer, status post EGD with intervention. No evidence of active bleeding according to records. 6. Clear liquid diet. 7. Norepinephrine to keep systolic blood pressure above than 80. 8. Echocardiogram did not show evidence of pulmonary hypertension. 9. Continue Protonix drip. 10. Venodyne boots. 11. Core measures for the ICU has been met. 12. Discussed with the staff on rounds in details. 13. Replacement of her electrolytes. 14. Continue ceftriaxone. It can be changed to oral Cipro. 15. Appreciate all involved. Critical care time spent with the patient was 35 minutes. Subjective The patient feels better however her vital signs remains borderline especially for her blood pressure requiring norepinephrine occasionally. No nausea or vomiting and tolerating light diet. Her abdomen is softer but start building up peritoneal fluid again. Minimal melena in her bowel movement. She is mentating very well, does not have any labored breathing. Otherwise no events overnight. Review of Systems Review of Systems: Review of system including 10 systems was unremarkable. Physical Exam Physical Exam: Vital signs remained stable, blood pressure is borderline with systolic of 80, heart rate is variable but between 50-70, O2 saturation 98%, cachectic, right IJ site is well-maintained, S1-S2, distant breath sounds bilaterally, abdomen is soft much reduced in diameter compared to prior to paracentesis, no edema, no asterixis, no tremor, no neurologic deficit. Mentating very well. Results & Data Vital Signs (Past 12 Hours) Vital Signs Temp Pulse Resp BP Pulse Ox 04/07/19 11:30 62 11 L 88/55 L 04/07/19 11:00 63 15 91/59 L 98 04/07/19 10:30 65 14 87/51 L 04/07/19 10:03 74 14 86/54 L 04/07/19 09:30 65 16 95/58 L 96 04/07/19 09:00 64 17 93/54 L 96 04/07/19 08:30 69 15 97/57 L 97 04/07/19 08:00 36.8 C 64 14 94/57 L 96 04/07/19 07:30 63 15 89/54 L 96 04/07/19 07:00 55 L 9 L 87/56 L 96 04/07/19 06:00 60 10 L 101/57 L 94 04/07/19 05:30 61 5 L 93/53 L 94 04/07/19 05:00 63 9 L 85/51 L 95 04/07/19 04:30 63 8 L 87/48 L 95 04/07/19 04:00 36.8 C 63 10 L 79/46 L 93 04/07/19 03:30 63 10 L 83/49 L 95 04/07/19 03:19 66 7 L 77/49 L 93 04/07/19 03:00 70 10 L 79/47 L 93 04/07/19 02:30 69 17 81/50 L 95 Laboratory Results Labs were consistent with slight leukocytosis, BMP is stable and her BUN/creatinine has improved with creatinine going down to 1.24. Bilirubin is climbing up. Again her peritoneal fluid are transudate. No evidence of SBP. Diagnostic Findings No new imaging. PG Care Time/CCT Critical Care Time: Yes Total Critical Care Time: 45
[2019-04-07] MEDS: cefTRIAXone SODIUM 1,000 MG in DEXTROSE 5% 50 ML IV SCH (14:49)
[2019-04-07] MEDS: ALBUMIN 5% 250 ML IV SCH ×4 (14:55→23:26)
[2019-04-07] MEDS: NOREPINEPHRINE BIT INJ 8 MG in DEXTROSE 5% 500 ML IV SCH (16:39)
[2019-04-07] MEDS: HYDROmorphone INJ 0.5 MG/0.5 ML SYR IV PRN ×2 (16:42→23:30)
[2019-04-07] MEDS: DOPAMINE / D5W 400 MG/250 ML BAG IV SCH (16:42)
[2019-04-07] MEDS: ONDANSETRON INJ 2 MG/ML 2 ML VIAL IV PRN (17:10)
[2019-04-08] MEDS: NORMOSOL-R 1,000 ML IV SCH ×3 (04:05→20:04)
[2019-04-08] MEDS: PANTOprazole 40 MG in DEXTROSE 5% 100 ML IV SCH ×2 (04:07→09:18)
[2019-04-08 04:36] LABS: Basophils # (auto) 0.08 K/uL (0-0.2); Basophils % (auto) 0.5 %; Eosinophils # (auto) 0.48 K/uL (0-0.5); Eosinophils % (auto) 2.9 %; Hematocrit (blood only) 30.4 % (37-47); Hemoglobin 10.4 g/dL (12.0-16.0); Immature Granulocytes # (auto) 0.07 K/uL (0.00-0.02); Immature Granulocytes % (auto) 0.4 %; Lymphocytes # (auto) 2.45 K/uL (1.2-3.4); Lymphocytes % (auto) 14.8 %; Mean Corpuscular Hgb Conc 34.2 g/dL (32-36); Mean Corpuscular Volume 87.4 fL (80-100); Mean Platelet Volume 10.1 fL (7.4-10.4); Monocytes # (auto) 1.39 K/uL (0.11-0.59); Monocytes % (auto) 8.4 %; Neutrophils # (auto) 12.13 K/uL (1.4-6.5); Platelet Count 196 K/uL (130-400); RDW Coefficient of Variation 18.2 % (11.5-14.5); RDW Standard Deviation 57.6 fL (36.4-46.3); Red Blood Count 3.48 M/uL (4.2-5.4)
[2019-04-08 04:47] LABS: INR 1.3 (0.9-1.1)
[2019-04-08 05:08] LABS: Albumin Level 3.3 gm/dl (3.4-5.0); BUN Creatinine Ratio 22.7 (10-20); Bilirubin Direct 0.4 mg/dl (0-0.2); Bilirubin,Total 1.1 mg/dl (0.2-1); Calcium 8.1 mg/dl (8.5-10.1); Creatinine Clr Calc Pharmacy 49.4 ml/min; Est GFR (African American) 77.2; Est GFR (Non-African American) 66.6; Magnesium 1.9 mg/dl (1.8-2.4); Phosphorus 3.2 mg/dl (2.5-4.9); Potassium 3.4 mmol/L (3.5-5.1); Total Protein 5.7 gm/dl (6.4-8.2)
[2019-04-08] MEDS: OCTREOTIDE ACETATE 100 MCG/ML VIAL SQ SCH ×2 (05:14→13:24)
--- NOTE | 2019-04-08 07:32 | Family Medicine Progress Note ---
Date of Service April 08, 2019 Assessment & Plan (1) Acute GI bleedinyo F with a PMHx significant for alcohol abuse, alcoholic cirrhosis with ascites, recent admission for C diff, admitted with GI bleed possibly secondary to bleeding Gastric ulcer. Acute GI Bleed -s/p transfusionsx2 of 4U in total, Hgb currently stable at 10.4 -Repeat EGD on 04/06 with similar findings of esophageal and gastric ulcers, this time with a visible vessel that was treated for hemostasis. -Gastroenterology recommendations appreciated -Continue Protonix, octreotide -continue to trend H/H daily, advise continual alcohol abstinence. Avoid NSAID use. -will continue to monitor Hypotension -improving -continue midrodrine, dopamine -levophed D/C 04/07 -will continue to monitor Abdominal ascites/Hx of cirrhosis -Pt with meld score of 14 -Now with 25mg albumin to be given scheduled q8h while hospitalized -Refractory ascites, s/p paracentesisx2, draining at least 5L each time. -prophylactic rocephin for SBP prophylaxis switched to cipro 500mg BID -INR 1.2 from 1.7, s/p Vit K -will continue to monitor. ELECTROLYTE abnormalities (Hypomagnesemia, Hypocalcemia, Hypokalemia) -replace potassium, mag, calcium as needed -will continue to monitor ALCOHOL CESSATION -vocational rehabilitation counselor on alcohol cessation FEN/GI: clear liquid diet DVT proph: chemo prophylaxis contraindicated CODE STATUS: full Supervising Physician Co-Signing Physician Notes I personally examined the patient and verified all [place] points of history and exam, discussed case, and agree with decision making with Dr Barnett. still having some vomiting. not a lot not after eating. still on dopamine. ICU input appreciated vitals noted nad breathing unlabored no accessory muscles good effort. abd soft nt no guarding/rebound/rigidity. No pallor or icterus. no focal neuro deficits at rest. UGI bleed, acute blood loss anemia, early hypovolemic/hemorrhagic shock present on admission -Relates to peptic ulcer disease - Hgb stable (continue to follow daily). -Ongoing acid suppression (switch to BID) cirrhosis with ascites - low BP may also be related to fluid shifting from ascites/portal HTN. TIPS high risk low benefit according to [facility]. continue med management as well as she's able to tolerate. coagulopathy - can consider FFP if she rebleeds. Subjective Judi states she is still nauseated this AM, and has a bad headache. Denies chest pain, SOB, palps, or abdominal tenderness. Review of Systems Review of Systems: All systems reviewed & are unremarkable except as noted in HPI & below Physical Exam Physical Exam: General: Alert, orientedx3. Resting in bed. HEENT: NC/AT, PERRLA, EOMI, oropharynx moist. Chest: Nontender to palpation. CV: RRR, no murmurs appreciated. Resp: Breath sounds clear bilaterally on front Abdomen: Soft, tender, distended. Extremities: mild edema in lower extremities. Results & Data Vital Signs (Past 12 Hours) Vital Signs Temp Pulse Resp BP Pulse Ox 04/08/19 00:00 67 04/07/19 22:15 67 8 L 116/64 95 04/07/19 22:00 73 18 95 04/07/19 21:45 72 17 116/66 97 04/07/19 21:31 81 21 126/54 L 97 04/07/19 21:15 76 13 112/66 97 04/07/19 21:00 67 8 L 116/72 96 04/07/19 20:46 83 18 136/73 95 04/07/19 20:30 92 H 18 138/81 97 04/07/19 20:15 76 9 L 126/73 95 04/07/19 20:01 36.7 C 74 12 133/74 94 04/07/19 20:00 81 10 L 93 04/07/19 19:45 68 8 L 113/70 94 Laboratory Results Laboratory Results - last 24 hr 04/08/19 04/08/19 04/08/19 04:22 04:22 04:22 WBC 16.60 H RBC 3.48 L Hgb 10.4 L Hct 30.4 L MCV 87.4 MCH 29.9 MCHC 34.2 RDW Std Deviation 57.6 H RDW Coeff of Spenser 18.2 H Plt Count 196 MPV 10.1 Immature Gran % (Auto) 0.4 Neut % (Auto) 73.0 Lymph % (Auto) 14.8 [place] % (Auto) 8.4 Eos % (Auto) 2.9 Baso % (Auto) 0.5 Immature Gran # (Auto) 0.07 H Neut # (Auto) 12.13 H Lymph # (Auto) 2.45 [place] # (Auto) 1.39 H Eos # (Auto) 0.48 Baso # (Auto) 0.08 PT 13.0 H INR 1.3 H Sodium 137 Potassium 3.4 L Chloride 111 H Carbon Dioxide 20 L Anion Gap 6.0 BUN 23 H Creatinine 1.00 Est Cr Clr Drug Dosing 49.4 Est GFR ( Amer) 77.2 Est GFR (Non-Af Amer) 66.6 BUN/Creatinine Ratio 22.7 H Glucose 136 H Calcium 8.1 L Phosphorus 3.2 Magnesium 1.9 Total Bilirubin 1.1 H Direct Bilirubin 0.4 H AST 46 H ALT 24 Alkaline Phosphatase 112 Total Protein 5.7 L D Albumin 3.3 L Medications Administered Home Medications albuterol sulfate 2.5 mg/3 mL (0.083 %) solution for nebulization 2.5 mg INHALATION Q4H PRN #1 ml 03/15/19 [History Confirmed 04/04/19] folic acid 1 mg tablet 1 mg PO DAILY #30 tab 03/15/19 [Rx Confirmed 04/04/19] multivitamin tablet 1 tab PO DAILY 03/15/19 [History Confirmed 04/04/19] mecobalamin (vitamin B12) 1,000 mcg disintegrating tablet,sublingual 1,000 mcg SL DAILY #30 tab 03/16/19 [Rx Confirmed 04/04/19] thiamine HCl (vitamin B1) 100 mg tablet 100 mg PO DAILY #30 tab 03/16/19 [Rx Confirmed 04/04/19] buspirone 5 mg PO DAILY #30 tab 03/22/19 [Rx Confirmed 04/04/19] escitalopram oxalate 5 mg PO DAILY #30 tab 03/22/19 [Rx Confirmed 04/04/19] spironolactone 50 mg PO QAM #60 tab 03/22/19 [Rx Confirmed 04/04/19] diclofenac sodium [Voltaren] 4 gm TOP QID #100 gm 03/30/19 [Rx Confirmed 04/04/19] vancomycin [Firvanq] 125 mg PO QID 04/02/19 [History Confirmed 04/04/19] Active Medications Heparin Sodium (Beef Lung) (Heparin Sod 10 Unit/Ml Flush) 5 ml FLUSH PRN PRN PRN Reason: Flush Stop: 05/05/19 22:53 Hydromorphone HCl (Dilaudid) 0.5 mg IV Q4H PRN PRN Reason: Pain Stop: 04/09/19 16:27 Last Admin: 04/07/19 23:30 Dose: 0.5 mg Documented by: Pantoprazole Sodium 40 mg/ (Dextrose) 100 mls @ 20 mls/hr IV Q5H [facility] Stop: 05/04/19 03:44 Last Admin: 04/08/19 09:18 Dose: 20 mls/hr Documented by: Sodium Chloride (Nss) 250 mls @ 15 mls/hr IV .[id number] PRN PRN Reason: For Transfusion Stop: 05/04/19 06:57 Parenteral Electrolytes (Normosol-R) 1,000 mls @ 70 mls/hr IV .[id number] [facility] Stop: 05/04/19 15:14 Last Infusion: 04/08/19 09:41 Dose: 0 mls/hr Documented by: Sodium Chloride (Nss) 250 mls @ 15 mls/hr IV .[id number] PRN PRN Reason: For Transfusion Stop: 05/06/19 05:16 Ceftriaxone Sodium 1,000 mg/ (Dextrose) 50 mls @ 100 mls/hr IV Q24H [facility] Stop: 04/12/19 13:29 Last Infusion: 04/07/19 16:18 Dose: Infused Documented by: Albumin Human (Albumin 5%) 250 mls @ 250 mls/hr IV Q8H [facility] Stop: 04/10/19 14:59 Last Infusion: 04/08/19 10:42 Dose: Infused Documented by: Albumin Human (Albumin 5%) 250 mls @ 250 mls/hr IV Q8H [facility] Stop: 04/10/19 15:59 Last Admin: 04/08/19 09:59 Dose: Not Given Documented by: Dopamine HCl/Dextrose (Dopamine / D5w) 400 mg in 250 mls @ 5.299 mls/hr IV .Q24H [facility]; Protocol Stop: 05/07/19 16:29 Last Infusion: 04/08/19 07:17 Dose: 3 mcg/kg/min, 5.3 mls/hr Documented by: Midodrine (Proamatine) 10 mg PO TID@0800,1200,1700 [facility] Stop: 05/06/19 16:59 Last Admin: 04/08/19 09:17 Dose: 10 mg Documented by: Ondansetron HCl (Zofran) 4 mg IV Q6H PRN PRN Reason: NAUSEA/VOMITING Stop: 05/04/19 06:13 Last Admin: 04/07/19 17:10 Dose: 4 mg Documented by: PG Care Time/CCT Total # of Minutes Spent Total Time Spent with Patient: Total time spent is greater than 50% in coordination of care (as documented) at patient's floor/unit and/or counseling patient: Resident Activity Tracking Resident Involvement: Resident Care Provided Care Provided: Adult Hospital Medicine
[2019-04-08] MEDS: ALBUMIN 5% 250 ML IV SCH ×3 (09:16→09:59)
[2019-04-08] MEDS: MIDODRINE HCL 10 MG TAB PO SCH ×3 (09:17→17:57)
--- NOTE | 2019-04-08 12:30 | Critical Care Progress Note ---
Date of Service April 08, 2019 Assessment & Plan (1) Acute GI bleeding: Impression: 1. Upper GI bleed, esophageal variceal bleed versus gastropathy versus gastritis secondary to alcoholism and NSAID. 2. Liver cirrhosis, child Camarena 10, meld score of 19. 3. Portal hypertension with recurrent ascites, transudate, no evidence of SBP. 4. History of alcoholism, last drink 3 weeks ago. 5. Nicotine abuse. 6. No evidence of HE. Plan: 1. Appreciate GI input. Patient would benefit from TIPS evaluation. transfer to a tertiary care center in progress. Discussed with Dr. Keating and Dr. Neal. 2. Agree with increasing the dose of midodrine to 10 mg 3 times daily.. 3. Refractory ascites, status post paracentesis x2 in 2 days each with 5 L of fluid removal, kidney function improved after reducing the intra-abdominal pressure.. 4. Blood pressure responded to albumin. Albumin level now is 3.3, will stop the albumin infusion. 5. Hematocrit has been stable, GI bleeding secondary to peptic ulcer disease, large burden of gastric ulcer, status post EGD with intervention. No evidence of active bleeding according to records. 6. Clear liquid diet unless stated otherwise by GI. 7. Discontinue norepinephrine. 8. Echocardiogram did not show evidence of pulmonary hypertension. 9. Patient has been on Protonix drip for 4 days, change to PPI twice daily if okay with GI. 10. Venodyne boots. 11. Core measures for the ICU has been met. 12. Discontinue octreotide, due to bradycardia, and no evidence of esophageal varices. 13. Replacement of her electrolytes. 14. Continue ceftriaxone. It can be changed to oral Cipro, she may need i antibiotics indefinitely. 15. Appreciate all involved. 16. Potassium replacement. 17. Watch for leukocytosis. 18. Dopamine was started due to bradycardia and hypotension and in fact her hemodynamics responded well, reduce the dose to 3 mics per KG per minute. Discussed with the staff on rounds in details. Critical care time spent with the patient was 45 minutes. Subjective The patient continues to have occasional headache, minimal nausea, tolerating oral intake, her bradycardia improved with dopamine, blood pressure also improved with dopamine. Albumin currently 3.3. No events overnight. Review of Systems Review of Systems: Apart from the above, review of system was unremarkable. Physical Exam Physical Exam: Vital signs remained stable, S1-S2, regular rate and rhythm, abdomen is distended but soft no rebound nontender, cachexia in the periphery, cirrhotic patient appearance. Neurologically she is intact without asterixis or tremor. She is mentating very well. No evidence of melena or hematemesis. Results & Data Vital Signs (Past 12 Hours) Vital Signs Temp Pulse Resp BP Pulse Ox 04/08/19 11:00 77 16 114/66 97 04/08/19 10:01 79 14 100/62 97 04/08/19 09:00 80 13 114/71 95 04/08/19 08:00 36.4 C L 70 16 115/72 96 04/08/19 07:00 71 18 112/65 97 Laboratory Results Labs are consistent with leukocytosis, hematocrit is stable, platelet count is 196. Blood chemistry showed mild hypokalemia. LFTs are stable. Diagnostic Findings No new imaging. PG Care Time/CCT Critical Care Time: Yes Total Critical Care Time: 45
[2019-04-08] MEDS: POTASSIUM CHLORIDE / WTR 20 MEQ/100 ML PLCT IV SCH ×2 (13:19→14:59)
[2019-04-08] MEDS: CIPROFLOXACIN 500 MG TAB PO SCH ×2 (13:26→19:41)
[2019-04-08] MEDS: ONDANSETRON INJ 2 MG/ML 2 ML VIAL IV PRN ×2 (13:29→19:43)
[2019-04-08] MEDS: HYDROmorphone INJ 0.5 MG/0.5 ML SYR IV PRN ×2 (15:17→22:42)
[2019-04-08] MEDS: DOPAMINE / D5W 400 MG/250 ML BAG IV SCH (17:57)
[2019-04-08] MEDS: PANTOprazole 40 MG TAB PO SCH (19:47)
[2019-04-09 04:20] LABS: Basophils # (auto) 0.08 K/uL (0-0.2); Basophils % (auto) 0.5 %; Eosinophils # (auto) 0.58 K/uL (0-0.5); Eosinophils % (auto) 3.7 %; Hematocrit (blood only) 29.5 % (37-47); Immature Granulocytes # (auto) 0.06 K/uL (0.00-0.02); Immature Granulocytes % (auto) 0.4 %; Lymphocytes # (auto) 3.12 K/uL (1.2-3.4); Lymphocytes % (auto) 20.1 %; Mean Corpuscular Hgb Conc 33.9 g/dL (32-36); Mean Corpuscular Volume 88.6 fL (80-100); Mean Platelet Volume 10.2 fL (7.4-10.4); Monocytes # (auto) 1.54 K/uL (0.11-0.59); Monocytes % (auto) 9.9 %; Neutrophils # (auto) 10.14 K/uL (1.4-6.5); Neutrophils % (auto) 65.4 %; Platelet Count 200 K/uL (130-400); RDW Coefficient of Variation 18.4 % (11.5-14.5); RDW Standard Deviation 58.7 fL (36.4-46.3); Red Blood Count 3.33 M/uL (4.2-5.4); White Blood Count 15.52 K/uL (4.8-10.8)
[2019-04-09 04:28] LABS: INR 1.4 (0.9-1.1); Prothrombin Time 14.3 Seconds (9.0-12.0)
[2019-04-09 04:56] LABS: Albumin Level 2.7 gm/dl (3.4-5.0); BUN Creatinine Ratio 20.3 (10-20); Bilirubin Direct 0.4 mg/dl (0-0.2); Calcium 7.9 mg/dl (8.5-10.1); Creatinine Clr Calc Pharmacy 62.6 ml/min; Est GFR (African American) 102.6; Est GFR (Non-African American) 88.5; Magnesium 1.6 mg/dl (1.8-2.4); Phosphorus 2.8 mg/dl (2.5-4.9); Total Protein 4.8 gm/dl (6.4-8.2)
--- NOTE | 2019-04-09 06:55 | Family Medicine Progress Note ---
Date of Service April 09, 2019 Assessment & Plan (1) Acute GI bleedinyo F with a PMHx significant for alcohol abuse, alcoholic cirrhosis with ascites, recent admission for C diff, admitted with GI bleed possibly secondary to bleeding Gastric ulcer. Acute GI Bleed -s/p transfusionsx2 of 4U in total, Hgb currently stable at 10.0 -Repeat EGD on 04/06 with similar findings of esophageal and gastric ulcers, this time with a visible vessel that was treated for hemostasis. -Gastroenterology recommendations appreciated -Continue Protonix, octreotide (restarted on 04/09, will closely monitor her bradycardia). -continue to trend H/H daily, advise continual alcohol abstinence. Avoid NSAID use. -will continue to monitor Hypotension -improving -continue midrodrine - dopamine d/c 04/09 and pt downgraded to the floor -levophed D/C 04/07 -will continue to monitor Abdominal ascites/Hx of cirrhosis -Pt with meld score of 14 -Discontinued scheduled 25mg albumin 04/09 -Refractory ascites, s/p paracentesisx2, draining at least 5L each time. -prophylactic rocephin for SBP prophylaxis, switched to cipro 500mg BID for 5 more days -INR 1.2 from 1.7, s/p Vit K -will continue to monitor. ELECTROLYTE abnormalities (Hypomagnesemia, Hypocalcemia, Hypokalemia) -replace potassium, mag, calcium as needed -will continue to monitor ALCOHOL CESSATION -pastoral counselor on alcohol cessation FEN/GI: clear liquid diet DVT proph: chemo prophylaxis contraindicated CODE STATUS: full Supervising Physician Co-Signing Physician Notes I personally examined the patient and verified all [place] points of history and exam, discussed case, and agree with decision making with Dr Barnett. still with some nausea/vomiting but generally feeling better. able to eat a little better, eating does not seem to trigger vomiting much. leaking from p aracentesis site now more of a trickle - significantly less than yesterday vitals noted nad breathing unlabored no accessory muscles good effort. abd soft nt no guarding/rebound/rigidity, fluid reaccumulating a little each day. No pallor or icterus. no focal neuro deficits at rest. UGI bleed, acute blood loss anemia, early hypovolemic/hemorrhagic shock present on admission -Relates to peptic ulcer disease - Hgb stable (continue to follow daily). -Ongoing acid suppression indefinitely, but appearing stable now cirrhosis with ascites - low BP may also be related to fluid shifting from asci aden/portal HTN. TIPS high risk low benefit according to [facility]. ascites reaccumulating some - able to tolerate midodrine; octreotide causing notable bradycardia so had to stop, BP too low to reliably tolerate diuretics. was on albumin IV but obviously this is not a group home solution. prn paracenteses as fluid reaccumulates. deconditioning/weakness - PT/OT dispo - await input from PT/OT, may need rehab vs home w outpt therapy. Subjective Judi states she has a head ache this AM and had 2 episodes of nausea overnight. Otherwise unchanged. Review of Systems Review of Systems: All systems reviewed & are unremarkable except as noted in HPI & below Physical Exam Physical Exam: General: Alert, orientedx3. Resting in bed. HEENT: NC/AT, PERRLA, EOMI, oropharynx moist. Chest: Nontender to palpation. CV: RRR, no murmurs appreciated. Resp: Breath sounds clear bilaterally on front Abdomen: Soft, tender, distended. Extremities: mild edema in lower extremities, particularly in her feet Results & Data Vital Signs (Past 12 Hours) Vital Signs Temp Pulse Resp BP Pulse Ox 04/09/19 05:00 36.7 C 56 L 14 90/51 L 96 04/09/19 04:00 54 L 9 L 87/54 L 98 04/09/19 03:00 51 L 8 L 96/59 L 96 04/09/19 02:00 58 L 13 92/53 L 96 04/09/19 01:00 64 13 88/57 L 97 04/09/19 00:00 55 L 8 L 92/52 L 93 04/08/19 23:00 60 6 L 91/53 L 94 04/08/19 22:00 54 L 19 86/54 L 99 04/08/19 21:03 53 L 15 99 04/08/19 21:02 36.7 C 63 11 L 103/53 L 98 04/08/19 21:00 59 L 18 98 04/08/19 20:01 52 L 14 100/57 L 99 04/08/19 20:00 54 L 10 L 98 04/08/19 19:01 55 L 17 105/60 99 04/08/19 19:00 57 L 14 100 Laboratory Results Laboratory Results - last 24 hr 04/09/19 04/09/19 04/09/19 04:08 04:08 04:08 WBC 15.52 H RBC 3.33 L Hgb 10.0 L Hct 29.5 L MCV 88.6 MCH 30.0 MCHC 33.9 RDW Std Deviation 58.7 H RDW Coeff of Spenser 18.4 H Plt Count 200 MPV 10.2 Immature Gran % (Auto) 0.4 Neut % (Auto) 65.4 Lymph % (Auto) 20.1 [place] % (Auto) 9.9 Eos % (Auto) 3.7 Baso % (Auto) 0.5 Immature Gran # (Auto) 0.06 H Neut # (Auto) 10.14 H Lymph # (Auto) 3.12 [place] # (Auto) 1.54 H Eos # (Auto) 0.58 H Baso # (Auto) 0.08 PT 14.3 H INR 1.4 H Sodium 140 Potassium 4.0 D Chloride 113 H Carbon Dioxide 22 Anion Gap 5.0 BUN 16 Creatinine 0.79 Est Cr Clr Drug Dosing 62.6 Est GFR ( Amer) 102.6 Est GFR (Non-Af Amer) 88.5 BUN/Creatinine Ratio 20.3 H Glucose 76 Calcium 7.9 L Phosphorus 2.8 Magnesium 1.6 L Total Bilirubin 1.0 Direct Bilirubin 0.4 H AST 45 H ALT 21 Alkaline Phosphatase 101 Total Protein 4.8 L Albumin 2.7 L Medications Administered Home Medications albuterol sulfate 2.5 mg/3 mL (0.083 %) solution for nebulization 2.5 mg INHALATION Q4H PRN #1 ml 03/15/19 [History Confirmed 04/04/19] folic acid 1 mg tablet 1 mg PO DAILY #30 tab 03/15/19 [Rx Confirmed 04/04/19] multivitamin tablet 1 tab PO DAILY 03/15/19 [History Confirmed 04/04/19] mecobalamin (vitamin B12) 1,000 mcg disintegrating tablet,sublingual 1,000 mcg SL DAILY #30 tab 03/16/19 [Rx Confirmed 04/04/19] thiamine HCl (vitamin B1) 100 mg tablet 100 mg PO DAILY #30 tab 03/16/19 [Rx Confirmed 04/04/19] buspirone 5 mg PO DAILY #30 tab 03/22/19 [Rx Confirmed 04/04/19] escitalopram oxalate 5 mg PO DAILY #30 tab 03/22/19 [Rx Confirmed 04/04/19] spironolactone 50 mg PO QAM #60 tab 03/22/19 [Rx Confirmed 04/04/19] diclofenac sodium [Voltaren] 4 gm TOP QID #100 gm 03/30/19 [Rx Confirmed 04/04/19] vancomycin [Firvanq] 125 mg PO QID 04/02/19 [History Confirmed 04/04/19] Active Medications Ciprofloxacin (Cipro) 500 mg PO BID [facility]EN Stop: 04/13/19 12:39 Last Admin: 04/09/19 07:42 Dose: 500 mg Documented by: Heparin Sodium (Beef Lung) (Heparin Sod 10 Unit/Ml Flush) 5 ml FLUSH PRN PRN PRN Reason: Flush Stop: 05/05/19 22:53 Hydromorphone HCl (Dilaudid) 0.5 mg IV Q4H PRN PRN Reason: Pain Stop: 04/09/19 16:27 Last Admin: 04/09/19 07:42 Dose: 0.5 mg Documented by: Parenteral Electrolytes (Normosol-R) 1,000 mls @ 70 mls/hr IV .[id number] [facility] Stop: 05/04/19 15:14 Last Admin: 04/08/19 20:04 Dose: 70 mls/hr Documented by: Sodium Chloride (Nss) 250 mls @ 15 mls/hr IV .[id number] PRN PRN Reason: For Transfusion Stop: 05/06/19 05:16 Dopamine HCl/Dextrose (Dopamine / D5w) 400 mg in 250 mls @ 0 mls/hr IV .Q0M [facility]; Protocol Stop: 05/07/19 16:29 Last Infusion: 04/08/19 17:57 Dose: 0 mcg/kg/min, 0 mls/hr Documented by: Midodrine (Proamatine) 10 mg PO TID@0800,1200,1700 [facility] Stop: 05/06/19 16:59 Last Admin: 04/09/19 07:42 Dose: 10 mg Documented by: Octreotide Acetate (Sandostatin) 50 mcg SQ Q8 [facility] Stop: 05/08/19 13:59 Last Admin: 04/08/19 13:24 Dose: 50 mcg Documented by: Ondansetron HCl (Zofran) 4 mg IV Q6H PRN PRN Reason: NAUSEA/VOMITING Stop: 05/04/19 06:13 Last Admin: 04/09/19 07:42 Dose: 4 mg Documented by: Pantoprazole Sodium (Protonix) 40 mg PO BID [facility] Stop: 05/08/19 20:59 Last Admin: 04/09/19 07:42 Dose: 40 mg Documented by: PG Care Time/CCT Total # of Minutes Spent Total Time Spent with Patient: Total time spent is greater than 50% in coordination of care (as documented) at patient's floor/unit and/or counseling patient: Resident Activity Tracking Resident Involvement: Resident Care Provided Care Provided: Adult Hospital Medicine
[2019-04-09] MEDS: HYDROmorphone INJ 0.5 MG/0.5 ML SYR IV PRN ×2 (07:42→19:44)
[2019-04-09] MEDS: CIPROFLOXACIN 500 MG TAB PO SCH ×2 (07:42→19:41)
[2019-04-09] MEDS: MIDODRINE HCL 10 MG TAB PO SCH ×3 (07:42→16:53)
[2019-04-09] MEDS: PANTOprazole 40 MG TAB PO SCH ×2 (07:42→19:43)
[2019-04-09] MEDS: ONDANSETRON INJ 2 MG/ML 2 ML VIAL IV PRN ×3 (07:42→21:54)
[2019-04-09] MEDS: NORMOSOL-R 1,000 ML IV SCH ×2 (09:38→23:52)
[2019-04-09] MEDS: MAGNESIUM OXIDE 400 MG TAB PO SCH ×2 (09:38→21:48)
--- NOTE | 2019-04-09 12:05 | Critical Care Progress Note ---
Date of Service April 09, 2019 Assessment & Plan (1) Acute GI bleeding: Impression: 1. Upper GI bleed, esophageal variceal bleed versus gastropathy versus gastritis secondary to alcoholism and NSAID. 2. Liver cirrhosis, child Camarena 10, meld score is 10 today. 3. Portal hypertension with recurrent ascites, transudate, no evidence of SBP. 4. History of alcoholism, last drink 3 weeks ago. 5. Nicotine abuse. 6. No evidence of HE. Plan: 1. Appreciate GI input. 2. Appreciate Dr. Neal assistance, the patient was declined by [facility] for TIPS. 3. Refractory ascites, status post paracentesis x2 in 2 days each with 5 L of fluid removal, kidney function is stable. 4. Her albumin has been recovered, likely she will need also further infusions in the future. 5. Hematocrit has been stable, GI bleeding seems to stop, she does have large burden gastric ulcer. 6. Clear liquid diet unless stated otherwise by GI. 7. Discontinue dopamine. 8. Replacement of magnesium. 9. Continue PPI twice daily. 10. Venodyne boots. 11. Core measures for the ICU has been met. 12. Octreotide was stopped due to profound bradycardia. 13. Continue Cipro for prophylaxis indefinitely. 14. I will follow her mental status rather than her blood pressure. The patient has been mentating with a low blood pressure and she cannot be sustained on IV pressors indefinitely. 15. Her meld score is down from 19-10. 16. Discussed with the staff, appreciate their acceptance of this case to the regular floor. 17. Watch for the paracentesis site as it did have persistently yesterday but not today. 18. Out of bed as tolerated. Discussed with the staff on rounds in details. Critical care time spent with the patient was 45 minutes. Subjective The patient continues to have occasional headache, occasional nausea but no vomiting, no increase in her abdominal girth, overnight she remained stable, she has been off the dopamine, but her heart rate remains around 49-55, blood pressure is variable but in the low 80s which has been her baseline, she is mentating very well, otherwise no events overnight. Review of Systems Review of Systems: Review of system apart from headache and nausea which has been intermittent, are none, no hematemesis, no melena, no cough no hemoptysis, mentating very well, able to stay out of bed, and denies any pain at the moment. The rest of her review of system otherwise was unremarkable. Physical Exam Physical Exam: Vital signs are borderline, remains bradycardic with borderline hypotensive which is her baseline, no JVD, right IJ site is well-maintained, S1- S2, bradycardia, lungs are clear, abdomen is soft but distended, minimal output from the paracentesis site, no irritation erythema or induration. No swelling in her lower extremities. Cachectic in the periphery. Neurologically no asterixis or tremor. Results & Data Vital Signs (Past 12 Hours) Vital Signs Temp Pulse Resp BP Pulse Ox 04/09/19 10:00 55 L 14 90/57 L 96 04/09/19 09:00 56 L 16 81/51 L 95 04/09/19 08:00 36.8 C 56 L 14 84/53 L 94 04/09/19 07:32 60 12 88/51 L 94 04/09/19 07:00 52 L 18 89/53 L 97 04/09/19 05:00 36.7 C 56 L 14 90/51 L 96 04/09/19 04:00 54 L 9 L 87/54 L 98 04/09/19 03:00 51 L 8 L 96/59 L 96 04/09/19 02:00 58 L 13 92/53 L 96 04/09/19 01:00 64 13 88/57 L 97 Laboratory Results Her labs were reviewed personally, continues to have leukocytosis, no evidence of SBP, her hematocrit has been stable, magnesium was replaced. Diagnostic Findings No new imaging. PG Care Time/CCT Critical Care Time: Yes Total Critical Care Time: 45
[2019-04-09] MEDS: OCTREOTIDE ACETATE 100 MCG/ML VIAL SQ SCH (14:50)
[2019-04-10] MEDS: HYDROmorphone INJ 0.5 MG/0.5 ML SYR IV PRN (05:22)
[2019-04-10 05:45] LABS: Basophils # (auto) 0.09 K/uL (0-0.2); Basophils % (auto) 0.6 %; Eosinophils # (auto) 0.57 K/uL (0-0.5); Eosinophils % (auto) 3.8 %; Hematocrit (blood only) 30.7 % (37-47); Hemoglobin 10.4 g/dL (12.0-16.0); Immature Granulocytes # (auto) 0.07 K/uL (0.00-0.02); Immature Granulocytes % (auto) 0.5 %; Lymphocytes % (auto) 28.6 %; Mean Corpuscular Hgb Conc 33.9 g/dL (32-36); Mean Corpuscular Volume 89.5 fL (80-100); Mean Platelet Volume 10.7 fL (7.4-10.4); Monocytes # (auto) 1.54 K/uL (0.11-0.59); Monocytes % (auto) 10.3 %; Neutrophils # (auto) 8.44 K/uL (1.4-6.5); Neutrophils % (auto) 56.2 %; Platelet Count 245 K/uL (130-400); RDW Coefficient of Variation 18.8 % (11.5-14.5); RDW Standard Deviation 59.8 fL (36.4-46.3); Red Blood Count 3.43 M/uL (4.2-5.4); White Blood Count 15.01 K/uL (4.8-10.8)
[2019-04-10 06:19] LABS: BUN Creatinine Ratio 14.4 (10-20); Calcium 7.7 mg/dl (8.5-10.1); Creatinine Clr Calc Pharmacy 55.5 ml/min; Est GFR (African American) 88.8; Est GFR (Non-African American) 76.6; Magnesium 1.6 mg/dl (1.8-2.4); Potassium 3.7 mmol/L (3.5-5.1)
[2019-04-10] MEDS: MIDODRINE HCL 10 MG TAB PO SCH ×3 (08:07→17:13)
[2019-04-10] MEDS: MAGNESIUM OXIDE 400 MG TAB PO SCH ×2 (08:07→21:36)
[2019-04-10] MEDS: CIPROFLOXACIN 500 MG TAB PO SCH (08:07)
[2019-04-10] MEDS: PANTOprazole 40 MG TAB PO SCH ×2 (08:07→21:36)
--- NOTE | 2019-04-10 10:38 | Gastroenterology Progress Note ---
Date of Service April 10, 2019 Assessment & Plan (1) Alcoholic cirrhosis of liver: Will need OP GI f/u. Has initial hepatology appt with Dr. Gaona 05/09/19. Will need Q 6 month liver imaging for screening for HCC, possibly diuretics for management of ascites and if remains sober >6 months then eval for liver transplant. There is no GI indication for Cipro (no varices and no SBP). Will get VDUS to verify no new portal vein thrombosis which cause cause the new ascites. (CT was non contrast, so not good quality to r/o PVT) (2) Acute GI bleeding: Continue po BID PPI. Advance diet to regular consistency. (3) C. difficile colitis: Pt should complete 10 days of Vancomycin if hasn't already done so. (4) Ascites due to alcoholic cirrhosis: Supervising Physician Co-Signing Physician Notes I performed a history and physical examination of the patient, including specifically on physical exam - soft, nontender abdomen. I have discussed the patient's management with Francisco. Please refer to the nurse practitioner's note for the documented findings and plan of care. 48 F with alcoholic cirrhosis and ascites, admitted with GI bleeding and found with multiple giant ulcers, etiology unclear ? NSAIDs. No bleeding now and H/H stable. Taking PO Vanc for ? CDI, no diarrhea. tolerating PO diet. Her BP is boerdeline with Midodrine hence could not get diuretics. Plan: Continue PPI BID. Repeat EGD in 3 months as OP Will try Diuretics once BP improve as OP. Follow up as OP in Liver clinic. Recall GI if needed. Subjective Ms. Judi Amezcua is a 58 yr old female with ETOH cirrhosis, abstaining x 3 weeks now. She presented on 04/04 for hematemesis. Hb on arrival 9.2. She underwent EGD with large, non bleeding esophageal and gastric ulcers. Then Hb dropped to 6.9. EGD repeated without active bleeding but the gastric antrum ulcer had a visible ulcer which was injected with epinephrine and tx with bipolar cautery. Also C-diff positive for gene, (-) for toxin. Underwent paracentesis on 04/04 and 04/06 with removal of 5 L each time, w/o evidence of SBP. Today, Pt tells me no nausea/vomiting since yesterday. Asks for food. Most recent BM early this morning, according to the pt: black/green color. Denies abdominal pain. Review of Systems Review of Systems: ROS: Gen: weakness improving, no fevers, no weight loss Eyes: No eye redness, or pain, no recent vision changes Resp: No SOB, no cough Cardio: No palpitations/irregular beats, no chest pain GI: + abdominal distention, no pain, no nausea/vomiting : Denies pain on urination Skin: No jaundice, itching or new rashes Physical Exam Constitutional: WD/WN, vitals as above Eyes: PERRL, conjunctivae normal, anicteric sclerae ENMT: external ear and nose normal, oropharynx normal Neck: trachea midline, no thyromegaly Respiratory: normal respiratory effort, lungs clear to auscultation Cardiovascular: Rate/Rhythm: regular rate and regular rhythm mild bilateral lower leg edema Gastrointestinal (Abdomen): Inspection/Auscultation: + abdomen distended (soft, moderate ascites) Percussion/Palpation: abdomen soft; abdomen nontender Skin: several spider angiomas on the chest Neurologic: PERRL, EOMI, accommodation nl, no face palsy, no dysarthria Psychiatric: A+Ox3, euthymic affect Results & Data Vital Signs (Past 12 Hours) Vital Signs Temp Pulse Pulse Pulse Resp BP BP 04/10/19 08:45 57 L 04/10/19 07:02 36.5 C 57 L 18 74/53 L 04/10/19 06:54 90/58 L 04/10/19 04:03 36.8 C 57 L 18 94/61 L 04/10/19 03:12 45 L 04/09/19 23:30 36.4 C L 50 L 16 91/51 L Pulse Ox 04/10/19 08:45 04/10/19 07:02 98 04/10/19 06:54 04/10/19 04:03 96 04/10/19 03:12 04/09/19 23:30 97
[2019-04-10] MEDS: NORMOSOL-R 1,000 ML IV SCH (14:33)
--- NOTE | 2019-04-10 17:19 | Ultrasound Report ---
US duplex portal hepatic veins CLINICAL HISTORY: new ascites, rule out portal vein thrombosis COMPARISON STUDY: CT of the abdomen and pelvis February 19, 2019. FINDINGS: The liver is cirrhotic. Increased hepatic echogenicity suggests fatty infiltration. No hepa tic lesions are identified although sensitivity is diminished on this exam. Moderate abdominal ascite s is noted. The major hepatic vessels are patent with appropriately directed flow. No evidence of por nury venous thrombosis is noted. IMPRESSION: 1. Patent major hepatic vessels with appropriately directed flow. 2. Cirrhosis with moderate ascites. Electronically signed by: Abisai Escalona M.D. 04/10/2019 5:18 PM
--- NOTE | 2019-04-10 18:10 | Family Medicine Progress Note ---
Date of Service April 10, 2019 Assessment & Plan (1) Alcoholic cirrhosis of liver: Judi is a 48-year-old female with a past medical history of alcohol abuse, alcoholic cirrhosis, and ascites who was admitted with hematemesis, coffee-ground emesis, and hypotension. Acute GI bleed secondary to esophageal/gastric ulcers in the setting of alcohol abuse Acute blood loss anemia She received a total of 4 units of packed red blood cells with improvement of her hemoglobin from 6.9 to approximately 10 EGD showed a cratered esophageal ulcer without bleeding and nonbleeding gastric ulcers with adherent clot - GI consulted. Recommended continuing twice daily pantoprazole, completing a 10-day course of vancomycin for C. difficile colitis, and HCC screening every 6 months. Recommend evaluation for liver transplant if she remains sober for 6 months. No indication for ciprofloxacin as they know she has no varices and no history of SBP. Hypotension She is mildly hypotensive at baseline, but after admission she was transferred to the ICU for ongoing care and required multiple pressors and octreotide until downgrade yesterday. She is doing well since and has mild hypotension similar to her baseline. On midodrine 10 mg 3 times daily. Continue to titrate as limited by BP. Discontinued IV fluids, encourage p.o. intake Follow clinically for bleeding as above Held diuretics in setting of hypotension and requirement of midodrine for pressure Alcoholic cirrhosis with ascites Chronic, patient highly resistant to rehab at this time. Meld score 14, CP 10 Was initially on Rocephin for SBP prophylaxis narrowed to Cipro, may DC per GI recs. INR improved to 1.2 from 1.7 with vitamin K administration, likely reflective of baseline synthetic dysfunction Per GI would benefit from evaluation for liver transplant if she is able to remain sober for 6 months Discussed with patient, continues to decline rehab at this time. Electrolyte derangement Na/K normal range today Creatinine 0.89 Magnesium 1.6, treat with magnesium oxide 400 mg p.o. twice daily Diarrhea One bowel movement this morning, not completely liquid. C. difficile PCR was positive with negative toxin. In context of the new testing algorithm this suggests an asymptomatic carrier status. Will defer vancomycin at this time and follow clinically. Diffuse abdominal rash, itching Resolved with one-time dose of diphenhydramine 25 p.o. Unclear etiology, If recurs with limited distribution recommend topical treatment, would use antihistamines conservatively in the setting of liver dysfunction and low blood pressure. Diet: Clear liquid diet DVT prophylaxis: Contraindicated CODE STATUS: Full (2) Coagulopathy: (3) Acute GI bleeding: (4) Anemia: (5) Pneumonia: (6) Neuropathy: (7) Back pain: (8) Alcohol dependence: (9) Depression with anxiety: Supervising Physician Co-Signing Physician Notes Resident Physician Supervision Note: I independently interviewed and examined the patient and verified the aguilera history and physical, reviewed labs and image studies, discussed the case with the resident Dr. Thomas and agree with the findings and care plan. Ector Lau reports she feels better today and close to her baseline since being downgraded from the ICU. She denies lightheadedness, tremulousness, dizziness, chest pain, shortness of breath, syncope today. Denies abdominal pain/nausea/vomiting today. She reports she feels very stressed because her father was admitted to the hospital in [place]. She expresses that she does not wish to go, and will refuse to go, to alcohol rehab after discharge. She notes she was last in rehab several years ago and [place] [facility] and did well, but has too much stress at home. She reports she has some diffuse itching along her lower back, upper abdomen, and left hip this morning. Review of Systems Review of Systems: All systems reviewed & are unremarkable except as noted in HPI & below Physical Exam Physical Exam: General: A&Ox3. NAD. Cooperative. HEENT: Atraumatic, normocephalic. Pulm: CTAB A&P. -wheezes, -rales, -rhonchi. Symmetrical chest rise. No increase work of breathing. No respiratory distress. Cardiac: RRR, -mrg. Radial pulses intact and symmetrical. Abdominal: Softly distended, nontender. Ascites present. Extremities: Thin, no distal extremity edema appreciated. Results & Data Vital Signs (Past 12 Hours) Vital Signs Temp Pulse Pulse Resp BP BP Pulse Ox 04/10/19 14:55 36.6 C 53 L 18 89/58 L 99 04/10/19 11:27 36.6 C 48 L 18 83/50 L 98 04/10/19 08:45 57 L 04/10/19 07:02 36.5 C 57 L 18 74/53 L 98 04/10/19 06:54 90/58 L PG Care Time/CCT Total # of Minutes Spent Total Time Spent with Patient: Total time spent is greater than 50% in coordination of care (as documented) at patient's floor/unit and/or counseling patient: Resident Activity Tracking Resident Involvement: Resident Care Provided Care Provided: Adult Hospital Medicine
[2019-04-11 06:36] LABS: Hematocrit (blood only) 30.3 % (37-47); Hemoglobin 10.4 g/dL (12.0-16.0); Mean Corpuscular Hgb Conc 34.3 g/dL (32-36); Mean Corpuscular Volume 89.6 fL (80-100); Mean Platelet Volume 10.3 fL (7.4-10.4); Platelet Count 257 K/uL (130-400); RDW Coefficient of Variation 18.9 % (11.5-14.5); RDW Standard Deviation 60.5 fL (36.4-46.3); Red Blood Count 3.38 M/uL (4.2-5.4); White Blood Count 16.31 K/uL (4.8-10.8)
[2019-04-11 06:49] LABS: INR 1.5 (0.9-1.1); Prothrombin Time 14.7 Seconds (9.0-12.0)
[2019-04-11 07:11] LABS: Albumin Level 2.3 gm/dl (3.4-5.0); BUN Creatinine Ratio 10.4 (10-20); Calcium 7.7 mg/dl (8.5-10.1); Creatinine Clr Calc Pharmacy 49.4 ml/min; Est GFR (African American) 77.2; Est GFR (Non-African American) 66.6; Potassium 3.5 mmol/L (3.5-5.1)
[2019-04-11 07:14] LABS: Bilirubin,Total 0.7 mg/dl (0.2-1); Globulin 2.3 gm/dl (2.5-4.0); Total Protein 4.6 gm/dl (6.4-8.2)
[2019-04-11 07:23] LABS: Anisocytosis Present; Basophils # (auto) 0.11 K/uL (0-0.2); Basophils % (auto) 0.7 %; Echinocytes 1+; Eosinophils # (auto) 0.55 K/uL (0-0.5); Eosinophils % (auto) 3.4 %; Immature Granulocytes % (auto) 0.6 %; Lymphocytes # (auto) 5.04 K/uL (1.2-3.4); Lymphocytes % (auto) 30.9 %; Monocytes # (auto) 1.61 K/uL (0.11-0.59); Monocytes % (auto) 9.9 %; Neutrophils % (auto) 54.5 %; Toxic Granulation 1+; Toxic Vacuolation 1+
[2019-04-11] MEDS: MIDODRINE HCL 10 MG TAB PO SCH ×3 (08:17→17:32)
[2019-04-11] MEDS: PANTOprazole 40 MG TAB PO SCH (08:18)
[2019-04-11] MEDS ORDERED: ESCITALOPRAM OXALATE 10 MG TAB PO SCH (09:00)
--- NOTE | 2019-04-11 14:47 | Discharge Summary ---
Date of Service April 11, 2019 Admission HPI Per Admitting Provider The patient is a 48-year-old female with a past medical history including alcoholic cirrhosis with ascites, tobacco abuse, alcohol abuse, hyponatremia, anxiety with depression and diabetes mellitus with most recent admission to [facility] from 03/25-03/30/2019 for low back pain and loose stools of 1-1/2 weeks duration, and was diagnosed with C. difficile colitis. She was discharged on vancomycin 125 mg p.o. 4 times daily, and denies any recent issue with frequent stools since discharge. She notes that she had 2 days of development of epigastric and abdominal discomfort, with some emesis during that time, but did not have blood in her vomitus until the day of admission. She continues to deny use of alcohol. In the emergency department, she was found to be hypotensive, with lowest blood pressure 75/49, and received IV fluid boluses, was transfused 1 unit of packed red blood cells, and was started on Protonix drip and octreotide drip. Patient will be admitted to the ICU for further care. Admission Exam Per Admitting Provider The patient is awake, alert and oriented 3, normocephalic and atraumatic, lying in bed and in no acute distress. HEENT--PERRL, EOMI, mucous membranes and oropharynx dry. Neck--supple. No JVD. No bruits. Thyroid normal, trachea midline, no adenopathy. Heart--normal S1 and S2. No murmurs, rubs or gallops. Lungs--clear bilaterally, no respiratory distress, no accessory muscle use. Abdomen--normal bowel sounds and soft. Mild generalized tenderness. Nondistended. Extremities--no cyanosis or clubbing. There is bilateral pretibial 1+ pitting edema. There are good distal pulses b/l. Dermatologic--normal skin turgor, normal color, no abnormal lymph nodes, no rash. Neurologic--cranial nerves II through XII grossly intact. Rheumatologic--normal range of motion. Psychiatric--normal affect. Principal Diagnosis Hematemesis , Upper GI Bleed Discharge Exam General: A&Ox3. NAD. Cooperative. HEENT: Atraumatic, normocephalic. Pulm: CTAB A&P. -wheezes, -rales, -rhonchi. Symmetrical chest rise. No increased work of breathing. No respiratory distress. Cardiac: RRR, -mrg. Radial pulses intact and symmetrical. Abdominal: Softly distended, nontender. Ascites present. Extremities: Thin, 2+ pitting edema to the calf bilateral. Discharge Data Allergies Allergy/AdvReac Type Severity Reaction Status Date / Time Bactrim Allergy Severe CHEST PAIN Unverified 12/26/16 19:35 sulfamethoxazole Allergy Severe CHEST PAIN Verified 04/12/19 11:05 trimethoprim Allergy Severe CHEST PAIN Verified 04/12/19 11:05 Consultations 04/04/19 03:57 ED Decision to Admit Stat 04/04/19 04:33 ED Decision to Admit Stat 04/04/19 06:14 Consult Case Management - Discharge Planning Routine Consult Blister Pack Operator Routine 04/04/19 07:01 Consult Gastroenterology Routine Procedures Performed Operation Date: 04/04/19 08:30 Actual Procedures p Esophagogastroduodenoscopy - Blas Adams MD Operation Date: 04/06/19 09:00 Actual Procedures p EGD Hemostasis - Blas Adams MD Ordered Studies 04/04/19 08:14 US point of care ultrasound Routine 04/10/19 11:16 US duplex portal hepatic veins Routine Hospital Course (1) Acute GI bleeding: Sim is a 48-year-old female with a past medical history of alcohol abuse, alcoholic cirrhosis, and ascites who was admitted with hematemesis, coffee-ground emesis, and hypotension. She required ICU admission for hypotension and recovered well following downgrade. Acute GI bleed secondary to esophageal/gastric ulcers in the setting of chronic alcohol abuse Judi was admitted after she was found with large volume coffee-ground emesis. She was hypotensive on admission and was admitted to the ICU, received blood transfusion, and had hemodynamic support with levo fed and dopamine with p.o. midodrine. Gastroduodenoscopy revealed a cratered esophageal ulcer, 3 nonbleeding gastric ulcers, and a prominent vessel which was injected with epinephrine for hemostasis. She was treated with a Protonix drip which was converted to p.o. after 72 hours. She is treated with octreotide which was stopped due to bradycardia. She did not have any continued symptoms of bleeding. She continued to be hypotensive which was managed as noted below. She is discharged to follow-up with GI and to continue a 6 to 8-week regimen of pantoprazole 40 mg twice daily. Hypotension Judi has a history of chronic baseline hypertension with systolic pressures in the low 100s. Following repletion with IV fluids and 4 units of packed red blood cells she continued to require Levophed and dopamine drips with midodrine during her ICU admission. Levo fed and dopamine were weaned and she was downgraded from ICU status, but continued to require midodrine support for blood pressure. Her blood pressures remained stable in the systolic 80s to 90s and she was discharged to continue midodrine 10 mg 3 times daily. Following downgrade from the ICU and at time of discharge she did not have any signs or symptoms of hypotension including lightheadedness, dizziness, falls, difficulty ambulating, sweats, shaking. Ascites Judi has chronic abdominal ascites in the setting of alcoholic liver cirrhosis. During her admission to the ICU she had to paracenteses performed with each removing 5 L of fluid. She was giving IV albumin and fluid support. Following procedure she continued to have a mild to moderate ascites without severe reaccumulation of fluid. She did not have any fever or abdominal pains suggestive of spontaneous bacterial peritonitis. GI was consulted and her case was discussed. Given that she presented with a large volume GI bleed, and that her paracentesis fluid showed a decreased protein content and she had a child Camarena score of 9 SBP prophylaxis was discussed. She has a history of allergy to Bactrim so ciprofloxacin 500 mg twice twice daily was prescribed with close followup to gastroenterology. Diarrhea in the setting of recent C. difficile colitis Prior to admission Judi had been under treatment for C. difficile colitis. She completed 9 days of oral vancomycin therapy, and had gradual improvement of her diarrhea during admission. Following downgrade from the ICU she had some slightly loose to firm stools once to twice a day. Repeat C. difficile testing showed PCR positive but antigen negative results suggestive of a asymptomatic carrier state. Given her recent treatment with antibiotics, recent infection, and high risk for recurrence she was prescribed a 10-day course of oral vancomycin pill in pocket approach to be taken if she developed copious liquid diarrhea. She was not having diarrhea at the time of discharge. Severe alcohol abuse Judi had been seen by the care team several times in the past for admissions related to alcohol abuse and cirrhosis. She expressed understanding of her illness and how alcohol contributed to both her symptoms and liver disease and expressed a desire to remain sober, but adamantly declined referral to a alcohol rehab program. She had not had any alcohol use in the 2 weeks prior to admission and expressed a strong desire determination to remain sober. The difficulties of alcohol addiction and support services available were discussed in detail, she deferred at this time but agreed to reach out to her primary provider for referral the next time she felt she is having difficulty remaining sober in the future. She did not show any signs of withdrawal or delirium tremens during admission. DVT prophylaxis: DVT prophylaxis was contraindicated during admission in the setting of acute bleed. (2) Anemia: (3) Hematemesis without nausea: (4) Hypotension due to blood loss: (5) C. difficile colitis: Total Time Total Time Spent Total Time Spent (In Minutes): 30 Discharge Plan Discharge Items Patient Disposition: Home - Self-Care Reason For Visit: UPPER GI BLEED, HEMATEMESIS Discharge Diagnosis: Acute UGIB, Hematemesis Condition: Critical Discharge Goals: Decrease discomfort, Improve function, Improve nutritional status and Prevent disease Activity: Resume your previous activity Non-emergency contact: Primary Care Provider and Environmental Engineering Professor Call non-emergency contact if: you have any medication questions and your pain is concerning for you Follow-up/Referrals: Luzma Colvin, [Primary Care Provider] - 04/12/19 11:00 am (Please, follow up with Dr. Colvin, TOMORROW, WednesdayApril 12 at 11:00 am. *If you need to change this appointment, call her office at [phone].) Diet: Regular Addtl Provider Instructions: You were admitted to the hospital for an upper gastrointestinal bleed requiring blood transfusion. You required intensive care admission to maintain adequate blood pressures. You have been continued on a blood pressure medication, midodrine, as noted below. You have had follow-up appointments made for you as well, as noted below. It is critically important that you abstain from alcohol in the future. Been started on a blood pressure medication, midodrine. Please take midodrine 10 mg by mouth 3 times daily. If you develop any palpitations, headaches, lightheadedness, dizziness, shortness of breath, or falls please contact your primary care provider. You have been started on an antibiotic to prevent infection of the fluid in your abdomen, ciprofloxacin. Please take ciprofloxacin 500 mg twice daily and follow-up with gastroenterology regarding this medication. If you develop any palpitations, chest pain, shortness of breath, muscle or joint aches, or sprains please contact your primary care provider regarding this medication. You have been prescribed an antibiotic vancomycin. You do not need to take this medication unless you develop watery diarrhea. If you develop watery diarrhea please fill this prescription and take vancomycin 125 mg every 6 hours for 10 days. An appointment has been made for you with the liver doctor, Dr. Gaona on 05/09/19 at 9:05AM. This appointment will be at the [facility] - [address] [place] [address]. A follow-up appointment is being scheduled for you with your primary care provider Luzma Colvin DO. You should receive a call to confirm this appointment. If you do not receive a call, or need to change her appointment please call her office at [phone]. If you develop any new or worsening symptoms including vomiting, bloody vomit, black or bloody bowel movements, severe abdominal pain, fever, chills, shortness of breath, difficulty breathing, or tremors please contact your primary care provider or call 911 for transport to the emergency department if you are very concerned. You have multiple health problems related to chronic alcohol use. Continued alcohol use is extremely dangerous and may lead to further bleeding, infection, worsening fluid buildup, inadequate blood pressure, and overall worsening health. Alcohol cessation can be very difficult and may require healthcare support. If you have difficulty remaining abstinent from alcohol please contact your primary care provider for referral to a rehab and/or support program. Prescriptions: New midodrine 10 mg Tablet 10 mg PO TID Qty: 30 RF: 3 ciprofloxacin HCl 500 mg tablet 500 mg PO BID Qty: 60 RF: 3 Continued mecobalamin (vitamin B12) 1,000 mcg tablet,disintegrating 1,000 mcg SL DAILY Qty: 30 RF: 5 thiamine HCl (vitamin B1) 100 mg tablet 100 mg PO DAILY Qty: 30 RF: 5 multivitamin tablet 1 tab PO DAILY RF: 0 folic acid 1 mg tablet 1 mg PO DAILY Qty: 30 RF: 5 diclofenac sodium [Voltaren] 1 % gel 4 gm TOP QID Qty: 100 RF: 5 No Action pantoprazole [Protonix] 40 mg tablet,delayed release (DR/EC) 40 mg PO BID Qty: 60 RF: 1 spironolactone 25 mg tablet 25 mg PO QAM Qty: 30 RF: 1 buspirone 5 mg tablet 5 mg PO DAILY Qty: 30 RF: 0 escitalopram oxalate [Lexapro] 5 mg tablet 5 mg PO DAILY Qty: 30 RF: 2 albuterol sulfate 2.5 mg /3 mL (0.083 %) solution for nebulization 2.5 mg INH Q4H PRN (Reason: shortness of breath or wheezing) Qty: 3 RF: 0 Firvanq 25 mg/mL recon soln 125 mg PO QID 10 Days Qty: 200 RF: 0 midodrine 10 mg tablet 10 mg PO TID Qty: 90 RF: 0 Stand-Alone Forms: [facility] Discharge Orders: Discharge Order (Routine); Ordered 04/11/19 Ordered By: Jeffrey Thomas Admission Data Admit Date/Time: 04/04/19 05:03 Attending Provider: Sary Tay Admit Provider: Estrada Flowers Primary Care Provider: Luzma Colvin Other Providers: Chanel Evangelista ; Estrada Flowers ; Blas Adams ; Miguel Ángel Neal Service: Telemetry Medical Other Interventions: Discharge Summary Assessment (RN) Last Done: 04/11/19 18:09 DC Date/Time DO NOT enter until pt leaves facility: 04/11/19 19:30 Supervising Physician Co-Signing Physician Notes Resident Physician Supervision Note: I independently interviewed and examined the patient and verified the aguilera history and physical, reviewed labs and image studies, discussed the case with the resident Dr. Thomas and agree with the findings and care plan. Time spent in discharge 35 min
== END 2019-04-11 19:30 | disposition home or self-care (01) | DRG 381 ==
LOC: ED 03:08 → 1E 05:03 → SUATTDRO 05:03 → 1E 05:24 → 2W 04-09 12:27

== ENCOUNTER 2019-04-22 12:52 | Inpatient (IN) ==
--- NOTE | 2019-04-22 13:52 | XRay Report ---
XR chest 1V portable CLINICAL HISTORY: 48 years-old Female presenting with fever. TECHNIQUE: Portable upright AP view of the chest was obtained. COMPARISON: 04/04/2019. FINDINGS: Cardiomediastinal silhouette normal. Minimal basilar opacities. No pleural effusion or pneumothorax. Osseous structures normal. Upper abdomen normal. IMPRESSION: 1. Minimal basilar opacities likely atelectasis or scarring. No convincing evidence of acute cardiop ulmonary disease. Electronically signed by: Jeffrey Becerra M.D. 04/22/2019 1:50 PM
[2019-04-22 14:12] LABS: Basophils # (auto) 0.09 K/uL (0-0.2); Basophils % (auto) 0.4 %; Eosinophils # (auto) 0.11 K/uL (0-0.5); Eosinophils % (auto) 0.5 %; Hematocrit (blood only) 33.3 % (37-47); Hemoglobin 11.5 g/dL (12.0-16.0); Immature Granulocytes # (auto) 0.14 K/uL (0.00-0.02); Immature Granulocytes % (auto) 0.7 %; Lymphocytes # (auto) 2.48 K/uL (1.2-3.4); Mean Corpuscular Hgb Conc 34.5 g/dL (32-36); Mean Corpuscular Volume 87.4 fL (80-100); Monocytes # (auto) 1.32 K/uL (0.11-0.59); Monocytes % (auto) 6.4 %; Neutrophils # (auto) 16.46 K/uL (1.4-6.5); Platelet Count 323 K/uL (130-400); RDW Coefficient of Variation 17.6 % (11.5-14.5); RDW Standard Deviation 55.5 fL (36.4-46.3); Red Blood Count 3.81 M/uL (4.2-5.4)
[2019-04-22 14:28] LABS: Albumin Level 2.4 gm/dl (3.4-5.0); Calcium 8.2 mg/dl (8.5-10.1); Creatinine Clr Calc Pharmacy 54.9 ml/min; Est GFR (African American) 87.6; Est GFR (Non-African American) 75.6; Potassium 3.8 mmol/L (3.5-5.1)
[2019-04-22] MEDS ORDERED: cefTRIAXone SODIUM 2,000 MG in DEXTROSE 5% 50 ML IV STA (14:29)
[2019-04-22] MEDS ORDERED: VANCOMYCIN CONSULT ACTIVE PRN ×2 (14:30→17:44)
[2019-04-22] MEDS ORDERED: VANCOMYCIN HCL 1,000 MG in SODIUM CHLORIDE 0.9% 500 ML IV ONE (14:30)
[2019-04-22 14:32] LABS: Albumin Globulin Ratio 0.6 (0.9-2); Globulin 4.1 gm/dl (2.5-4.0); Total Protein 6.5 gm/dl (6.4-8.2)
[2019-04-22] MEDS ORDERED: ACETAMINOPHEN 325 MG TAB PO STA (14:33)
[2019-04-22] MEDS ORDERED: HYDROmorphone INJ 0.5 MG/0.5 ML SYR IV STA (14:33)
[2019-04-22 15:08] LABS: INR 1.4 (0.9-1.1); Prothrombin Time 13.8 Seconds (9.0-12.0)
[2019-04-22] MEDS ORDERED: ONDANSETRON INJ 2 MG/ML 2 ML VIAL IV STA (15:18)
[2019-04-22] MEDS: SODIUM CHLORIDE 0.9% 1000ML 1,000 ML IV SCH ×2 (15:19→20:18)
--- NOTE | 2019-04-22 16:16 | Emergency Department Note ---
Entered by Kassandra Rodriguez acting as a scribe for Loreto Ambrosio MD History of Present Illness General Chief complaint: Abdominal Pain Source: patient History of Present Illness Onset (ago): day(s) 2 Location: abdomen Pain Consistency: + other (persistent) Maximum Pain Intensity: 8 Quality: + constant Associated symptoms: + denies other symptoms (dysuria) and + other (fever, cough, mild chest pain, blisters/reddening of skin of lower extremities) The patient is a 48 year old female that is presenting to the Emergency Room w ith complaints of persistent constant abdominal pain that has progressively worsened over the past couple of days. The patient reports that she has an associated fever, cough, and mild chest pain today. She denies any dysuria. She notes that she has had blisters and reddening of the skin of her lower extremities. The patient states that she has a history of severe alcoholic cirrhosis that is in its late stages. She denies drinking any alcohol recently. She notes that she normally has around 5L drained from her abdomen at a time. She states that her last therapeutic paracentesis was a couple of weeks ago. Home Medications Home Medications Medication Instructions Recorded Confirmed Type mecobalamin (vitamin B12) 1,000 1,000 mcg SL DAILY #30 tab 03/16/19 04/22/19 Rx mcg disintegrating tablet,sublingual thiamine HCl (vitamin B1) 100 mg 100 mg PO DAILY #30 tab 03/16/19 04/22/19 Rx tablet ciprofloxacin HCl 500 mg PO BID #60 tab 04/11/19 04/22/19 Rx albuterol sulfate 2.5 mg/3 mL 2.5 mg INH Q4H PRN #3 ml 04/12/19 04/22/19 Rx (0.083 %) solution for nebulization buspirone 5 mg tablet 5 mg PO DAILY #30 tab 04/12/19 04/22/19 Rx Allergies Allergy/AdvReac Type Severity Reaction Status Date / Time Bactrim Allergy Severe CHEST PAIN Unverified 12/26/16 19:35 sulfamethoxazole Allergy Severe CHEST PAIN Verified 04/22/19 13:31 trimethoprim Allergy Severe CHEST PAIN Verified 04/22/19 13:31 Past Med/Surg History Medical History Neuropathy (Acute) Heartburn (Acute) Depression with anxiety (Acute) Alcohol dependence (Acute) Alcoholic cirrhosis of liver Herpes simplex Ascites due to alcoholic cirrhosis Anxiety and depression Diabetes Heart disease Acute anemia (Resolved) ETOH abuse (Resolved) Elevated LFTs (Resolved) Hypoalbuminemia (Resolved) Hypokalemia (Resolved) Hypomagnesemia (Resolved) Hypomagnesemia (Resolved) Hyponatremia (Resolved) Pneumonia (Resolved) Tobacco abuse (Resolved) Abdominal distension Abdominal pain Acute electrocardiogram changes C. difficile colitis Dehydration E. 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 Beliefs That Will Affect Care: None marital status: Current Living Situation: Spouse Current Living Situation Comment: , "his son, my dtr, her dtr and my son" current occupational status: unemployed Other Information That Helps Us Care for You: No Feels Safe at Home: Yes Safety Concerns: Feels Safe At This Time Smoking Status: Current every day smoker Tobacco Type: cigarettes Cigarettes Per Day: 10 Do You Dip or Chew Tobacco: No Second Hand Exposure: No Tobacco Cessation Education Requested by Patient: No Hx Alcohol Use: Yes Alcohol type: beer and hard liquor Hx Substance Use: No Dental Care, Regularly: No Seatbelt Use: always Review of Systems See HPI for pertinent positives & negatives. and A total of 10 systems reviewed and were otherwise negative Physical Exam Vital Signs Vital Signs - 24 hr 04/22/19 15:30 04/22/19 17:11 04/22/19 17:30 Temperature Temperature Source Pulse Rate 104 H 96 H 100 H Pulse Rate from SpO2 Sensor 104 H 97 H 99 H Respiratory Rate 16 18 14 Blood Pressure 108/74 106/71 98/69 L Blood Pressure Mean 85 82 78 Pulse Oximetry 100 97 97 Oxygen Delivery Method Room Air Room Air Room Air 04/22/19 17:36 Temperature 38.3 C H Temperature Source Oral Pulse Rate Pulse Rate from SpO2 Sensor Respiratory Rate Blood Pressure Blood Pressure Mean Pulse Oximetry Oxygen Delivery Method Vital signs reviewed. General: Chronically-ill appearing cachectic middle-aged female with markedly distended fluid filled abdomen, in no significant distress. Warm to the touch. HEENT: No scleral icterus, PERRLA, neck supple. Atraumatic. Cardiovascular: Regular rate and rhythm, no extra sounds. Pulmonary: Clear to auscultation bilaterally, normal work of breathing. Abdomen: Soft, nondistended, positive bowel sounds. Tender to palpation over the abdomen. Musculoskeletal: Atraumatic, no peripheral edema. Neurologic: Patient awake alert and oriented x 3, full strength in all 4 extr emities. Cranial nerves 2 through 12 grossly intact. Skin: Warm, dry, no rash. Course 1325: The patient was seen and evaluated by the Resident Physician at this time. History and physical were discussed with me. 1431:The patient was evaluated in room B05. A complete history and physical examination was performed. 1450: The patient's case was discussed with Dr. Becerra, Radiology, who stated that he will perform the paracentesis following an US of the patient's abdomen. 1600: Pt's case d/w Dr Cano who will evaluate for further management. Administered Medications Buspirone HCl (Buspar) 5 mg PO DAILY CHEN Stop: 05/23/19 08:59 Last Admin: 04/24/19 08:20 Dose: 5 mg Documented by: [id number] Admin: 04/23/19 09:26 Dose: 5 mg Documented by: [id number] Cyanocobalamin (Vitamin B-12) 1,000 mcg PO DAILY CHEN Stop: 05/23/19 08:59 Last Admin: 04/24/19 08:43 Dose: 1,000 mcg Documented by: [id number] Admin: 04/23/19 09:26 Dose: 1,000 mcg Documented by: [id number] Dextrose (Dextrose 50%) 25 - 50 ml IV UD PRN; Protocol PRN Reason: Hypoglycemia Protocol Stop: 05/24/19 05:20 Last Admin: 04/24/19 05:36 Dose: 25 ml Documented by: [id number] Fentanyl Citrate (Fentanyl Citrate) 25 mcg IV Q4H PRN PRN Reason: Pain Stop: 05/08/19 10:44 Last Admin: 04/24/19 20:58 Dose: 25 mcg Documented by: [id number] Admin: 04/24/19 16:51 Dose: 25 mcg Documented by: [id number] Admin: 04/24/19 10:57 Dose: 25 mcg Documented by: [id number] Ceftriaxone Sodium 2,000 mg/ (Dextrose) 70 mls @ 100 mls/hr IV DAILY CHEN; Protocol Stop: 05/03/19 08:59 Last Infusion: 04/24/19 09:30 Dose: 0 mls/hr Documented by: [id number] Admin: 04/24/19 08:45 Dose: 100 mls/hr Documented by: [id number] Infusion: 04/23/19 10:31 Dose: 0 mls/hr Documented by: [id number] Admin: 04/23/19 09:49 Dose: 100 mls/hr Documented by: [id number] Norepinephrine Bitartrate 8 mg (/ Dextrose) 508 mls @ 14.63 mls/hr IV .Q24H CHEN; Protocol Stop: 05/23/19 19:53 Last Admin: 04/24/19 19:54 Dose: 0.1 mcg/kg/min, 14.6 mls/hr Documented by: [id number] Cosigned by: [id number] Titration: 04/24/19 19:54 Dose: 0.1 mcg/kg/min, 14.6 mls/hr Documented by: [id number] Cosigned by: [id number] Titration: 04/24/19 15:10 Dose: 0.1 mcg/kg/min, 14.6 mls/hr Documented by: [id number] Cosigned by: [id number] Titration: 04/24/19 07:27 Dose: 0 mcg/kg/min, 0.1 mls/hr Documented by: [id number] Cosigned by: [id number] Titration: 04/24/19 01:38 Dose: 0.1 mcg/kg/min, 15 mls/hr Documented by: [id number] Titration: 04/24/19 01:12 Dose: 0.04 mcg/kg/min, 5.9 mls/hr Documented by: [id number] Admin: 04/23/19 21:17 Dose: 0.05 mcg/kg/min, 7.3 mls/hr Documented by: [id number] Cosigned by: [id number] Vasopressin 20 units/ Sodium (Chloride) 101 mls @ 12.12 mls/hr IV .Q8H20M CHEN; Protocol Stop: 05/23/19 19:53 Last Admin: 04/24/19 16:19 Dose: Not Given Documented by: [id number] Admin: 04/24/19 16:19 Dose: Not Given Documented by: [id number] Admin: 04/24/19 16:18 Dose: Not Given Documented by: [id number] Titration: 04/24/19 15:10 Dose: 0.04 unit/min, 12.1 mls/hr Documented by: [id number] Cosigned by: [id number] Admin: 04/24/19 14:27 Dose: 0.04 unit/min, 12.1 mls/hr Documented by: [id number] Cosigned by: [id number] Titration: 04/24/19 14:13 Dose: 0.04 unit/min, 12.1 mls/hr Documented by: [id number] Cosigned by: [id number] Titration: 04/24/19 07:27 Dose: 0.04 unit/min, 12.1 mls/hr Documented by: [id number] Cosigned by: [id number] Admin: 04/24/19 05:52 Dose: 0.04 unit/min, 12.1 mls/hr Documented by: [id number] Cosigned by: [id number] Titration: 04/24/19 05:39 Dose: 0.04 unit/min, 12.1 mls/hr Documented by: [id number] Cosigned by: [id number] Admin: 04/23/19 21:18 Dose: 0.04 unit/min, 12.1 mls/hr Documented by: [id number] Cosigned by: [id number] Famotidine 20 mg/ Syringe 5 mls @ 2.5 mls/min IV BID CHEN Stop: 05/24/19 20:59 Last Admin: 04/24/19 19:54 Dose: 2.5 mls/min Documented by: [id number] Octreotide Acetate 500 mcg/ (Sodium Chloride) 105 mls @ 10.5 mls/hr IV .Q10H CHEN Stop: 05/24/19 21:14 Last Admin: 04/24/19 21:23 Dose: 50 mcg/hr, 10.5 mls/hr Documented by: [id number] Ondansetron HCl (Zofran) 4 mg IV Q4H PRN PRN Reason: Nausea Stop: 05/22/19 21:31 Last Admin: 04/24/19 21:10 Dose: 4 mg Documented by: [id number] Admin: 04/23/19 22:14 Dose: 4 mg Documented by: [id number] Admin: 04/23/19 22:12 Dose: 4 mg Documented by: [id number] Pentoxifylline (Trental) 400 mg PO TID CHEN Stop: 05/23/19 13:59 Last Admin: 04/24/19 19:48 Dose: Not Given Documented by: [id number] Admin: 04/24/19 13:42 Dose: 400 mg Documented by: [id number] Admin: 04/24/19 08:19 Dose: 400 mg Documented by: [id number] Admin: 04/23/19 20:27 Dose: 400 mg Documented by: [id number] Admin: 04/23/19 15:16 Dose: 400 mg Documented by: [id number] Thiamine HCl (Vitamin B-1) 100 mg PO DAILY CHEN Stop: 05/23/19 08:59 Last Admin: 04/24/19 08:43 Dose: 100 mg Documented by: [id number] Admin: 04/23/19 09:27 Dose: 100 mg Documented by: [id number] Discontinued Medications Acetaminophen (Tylenol) 650 mg PO NOW STA Stop: 04/22/19 14:34 Last Admin: 04/22/19 15:19 Dose: 650 mg Documented by: [id number] Enoxaparin Sodium (Lovenox) 40 mg SQ 1914 ONE Stop: 04/22/19 19:16 Last Admin: 04/22/19 20:47 Dose: 40 mg Documented by: [id number] Fentanyl Citrate (Fentanyl Citrate) Confirm Administered Dose 100 mcg .ROUTE .STK-MED ONE Stop: 04/24/19 02:43 Last Admin: 04/24/19 02:54 Dose: Not Given Documented by: [id number] Fentanyl Citrate (Fentanyl Citrate) 25 mcg IV NOW STA Stop: 04/24/19 02:40 Last Admin: 04/24/19 03:19 Dose: 25 mcg Documented by: [id number] Fentanyl Citrate (Fentanyl Citrate) Confirm Administered Dose 100 mcg .ROUTE .STK-MED ONE Stop: 04/24/19 10:49 Last Admin: 04/24/19 11:02 Dose: Not Given Documented by: [id number] Furosemide (Lasix) 40 mg PO 1915 ONE Stop: 04/22/19 19:16 Last Admin: 04/22/19 20:48 Dose: 40 mg Documented by: [id number] Hydromorphone HCl (Dilaudid) 0.5 mg IV NOW STA Stop: 04/22/19 14:34 Last Admin: 04/22/19 15:19 Dose: 0.5 mg Documented by: [id number] Hydromorphone HCl (Dilaudid) 0.5 mg IV Q6H PRN PRN Reason: Pain Stop: 04/24/19 07:00 Last Admin: 04/23/19 09:58 Dose: 0.5 mg Documented by: [id number] Ceftriaxone Sodium 2,000 mg/ (Dextrose) 70 mls @ 100 mls/hr IV NOW STA Stop: 04/22/19 15:10 Last Infusion: 04/22/19 16:04 Dose: 0 mls/hr Documented by: [id number] Admin: 04/22/19 15:18 Dose: 100 mls/hr Documented by: [id number] Vancomycin HCl 1,000 mg/ (Sodium Chloride) 520 mls @ 200 mls/hr IV NOW ONE; Protocol Stop: 04/22/19 17:05 Last Infusion: 04/22/19 18:33 Dose: 0 mls/hr Documented by: [id number] Admin: 04/22/19 15:49 Dose: 200 mls/hr Documented by: [id number] Sodium Chloride (Nss 1000ml) 1,000 mls @ 125 mls/hr IV .Q8H CHEN Stop: 05/22/19 14:44 Last Infusion: 04/24/19 14:44 Dose: 0 mls/hr Documented by: [id number] Infusion: 04/24/19 06:37 Dose: 0 mls/hr Documented by: [id number] Admin: 04/23/19 22:40 Dose: 125 mls/hr Documented by: [id number] Infusion: 04/23/19 22:40 Dose: 125 mls/hr Documented by: [id number] Admin: 04/23/19 18:22 Dose: 125 mls/hr Documented by: [id number] Infusion: 04/23/19 18:22 Dose: 125 mls/hr Documented by: [id number] Admin: 04/23/19 11:16 Dose: 125 mls/hr Documented by: [id number] Infusion: 04/23/19 11:16 Dose: 125 mls/hr Documented by: [id number] Admin: 04/23/19 03:16 Dose: 125 mls/hr Documented by: [id number] Infusion: 04/23/19 03:16 Dose: 125 mls/hr Documented by: [id number] Admin: 04/22/19 20:18 Dose: 125 mls/hr Documented by: [id number] Infusion: 04/22/19 20:18 Dose: 125 mls/hr Documented by: [id number] Admin: 04/22/19 15:19 Dose: 125 mls/hr Documented by: [id number] Vancomycin HCl 750 mg/ Sodium (Chloride) 265 mls @ 125 mls/hr IV Q16H CHEN Stop: 05/03/19 06:59 Last Infusion: 04/23/19 08:05 Dose: 0 mls/hr Documented by: [id number] Admin: 04/23/19 05:55 Dose: 125 mls/hr Documented by: [id number] Albumin Human (Albumin 25%) 50 mls @ 50 mls/hr IV Q1H [facility] Last Infusion: 04/23/19 21:25 Dose: 0 mls/hr Documented by: [id number] Admin: 04/23/19 19:56 Dose: 50 mls/hr Documented by: [id number] Infusion: 04/23/19 16:39 Dose: 0 mls/hr Documented by: [id number] Infusion: 04/23/19 00:14 Dose: 0 mls/hr Documented by: [id number] Admin: 04/22/19 23:25 Dose: 50 mls/hr Documented by: [id number] Infusion: 04/22/19 23:25 Dose: 0 mls/hr Documented by: [id number] Infusion: 04/22/19 23:18 Dose: 0 mls/hr Documented by: [id number] Admin: 04/22/19 22:48 Dose: 50 mls/hr Documented by: [id number] Albumin Human (Albumin 25%) 200 mls @ 100 mls/hr IV BID@1000,2000 CHEN Stop: 04/24/19 11:59 Last Infusion: 04/24/19 14:43 Dose: 0 mls/hr Documented by: [id number] Admin: 04/24/19 10:04 Dose: 100 mls/hr Documented by: [id number] Infusion: 04/24/19 00:02 Dose: 0 mls/hr Documented by: [id number] Admin: 04/23/19 21:26 Dose: 100 mls/hr Documented by: [id number] Phytonadione 10 mg/ Sodium (Chloride) 51 mls @ 102 mls/hr IV 1930 ONE Stop: 04/23/19 19:59 Last Infusion: 04/23/19 21:24 Dose: 0 mls/hr Documented by: [id number] Admin: 04/23/19 20:23 Dose: 102 mls/hr Documented by: [id number] Furosemide 40 mg/ Albumin (Human) 54 mls @ 54 mls/hr IV NOW STA Stop: 04/24/19 03:40 Last Infusion: 04/24/19 05:04 Dose: 0 mls/hr Documented by: [id number] Admin: 04/24/19 03:20 Dose: 54 mls/hr Documented by: [id number] Magnesium Sulfate/Dextrose (Magnesium Sulfate / D5w) 1 gm in 100 mls @ 100 mls/hr IV Q1H CHEN Stop: 04/24/19 08:18 Last Infusion: 04/24/19 09:00 Dose: 0 mls/hr Documented by: [id number] Admin: 04/24/19 07:58 Dose: 100 mls/hr Documented by: [id number] Infusion: 04/24/19 07:48 Dose: 100 mls/hr Documented by: [id number] Admin: 04/24/19 06:48 Dose: 100 mls/hr Documented by: [id number] Infusion: 04/24/19 06:42 Dose: 100 mls/hr Documented by: [id number] Admin: 04/24/19 05:42 Dose: 100 mls/hr Documented by: [id number] Potassium Chloride (K Guille / Wtr) 10 meq in 100 mls @ 100 mls/hr IV Q1H CHEN Stop: 04/24/19 07:18 Last Infusion: 04/24/19 07:50 Dose: 0 mls/hr Documented by: [id number] Admin: 04/24/19 06:48 Dose: 100 mls/hr Documented by: [id number] Infusion: 04/24/19 06:42 Dose: 100 mls/hr Documented by: [id number] Admin: 04/24/19 05:42 Dose: 100 mls/hr Documented by: [id number] Vancomycin HCl 750 mg/ Sodium (Chloride) 265 mls @ 125 mls/hr IV Q16H CHEN Stop: 05/04/19 07:59 Last Infusion: 04/24/19 10:27 Dose: 0 mls/hr Documented by: [id number] Admin: 04/24/19 08:13 Dose: 125 mls/hr Documented by: [id number] Phytonadione 10 mg/ Sodium (Chloride) 51 mls @ 102 mls/hr IV NOW STA Stop: 04/24/19 08:53 Last Infusion: 04/24/19 10:40 Dose: 0 mls/hr Documented by: [id number] Admin: 04/24/19 10:10 Dose: 102 mls/hr Documented by: [id number] Caspofungin 70 mg/ Sodium (Chloride) 260 mls @ 260 mls/hr IV NOW STA Stop: 04/24/19 09:29 Last Infusion: 04/24/19 14:43 Dose: 0 mls/hr Documented by: [id number] Admin: 04/24/19 10:16 Dose: 260 mls/hr Documented by: [id number] Magnesium Sulfate/Dextrose (Magnesium Sulfate / D5w) 1 gm in 100 mls @ 100 mls/hr IV Q1H CHEN Stop: 04/24/19 13:30 Last Infusion: 04/24/19 16:19 Dose: 0 mls/hr Documented by: [id number] Admin: 04/24/19 15:12 Dose: Not Given Documented by: [id number] Admin: 04/24/19 15:11 Dose: Not Given Documented by: [id number] Admin: 04/24/19 14:46 Dose: 100 mls/hr Documented by: [id number] Infusion: 04/24/19 14:40 Dose: 100 mls/hr Documented by: [id number] Admin: 04/24/19 13:40 Dose: 100 mls/hr Documented by: [id number] Infusion: 04/24/19 13:26 Dose: 100 mls/hr Documented by: [id number] Admin: 04/24/19 12:26 Dose: 100 mls/hr Documented by: [id number] Infusion: 04/24/19 12:03 Dose: 100 mls/hr Documented by: [id number] Admin: 04/24/19 11:03 Dose: 100 mls/hr Documented by: [id number] Potassium Chloride (K Guille / Wtr) 20 meq in 100 mls @ 50 mls/hr IV Q2H STA Stop: 04/24/19 11:15 Last Admin: 04/24/19 14:43 Dose: Not Given Documented by: [id number] Potassium Chloride (K Guille / Wtr) 10 meq in 100 mls @ 100 mls/hr IV Q1H CHEN Stop: 04/24/19 15:44 Last Infusion: 04/24/19 17:28 Dose: 0 mls/hr Documented by: [id number] Admin: 04/24/19 16:24 Dose: 100 mls/hr Documented by: [id number] Infusion: 04/24/19 16:24 Dose: 100 mls/hr Documented by: [id number] Admin: 04/24/19 15:33 Dose: 100 mls/hr Documented by: [id number] Infusion: 04/24/19 15:26 Dose: 100 mls/hr Documented by: [id number] Admin: 04/24/19 14:26 Dose: 100 mls/hr Documented by: [id number] Infusion: 04/24/19 14:19 Dose: 100 mls/hr Documented by: [id number] Admin: 04/24/19 13:19 Dose: 100 mls/hr Documented by: [id number] Infusion: 04/24/19 13:05 Dose: 100 mls/hr Documented by: [id number] Admin: 04/24/19 12:05 Dose: 100 mls/hr Documented by: [id number] Infusion: 04/24/19 11:59 Dose: 100 mls/hr Documented by: [id number] Admin: 04/24/19 10:59 Dose: 100 mls/hr Documented by: [id number] Midodrine (Proamatine) 10 mg PO TID@0800,1200,1700 [facility] Stop: 05/23/19 11:59 Last Admin: 04/23/19 18:22 Dose: 10 mg Documented by: [id number] Admin: 04/23/19 15:16 Dose: 10 mg Documented by: [id number] Miscellaneous () Confirm Administered Dose 1 ea .ROUTE .STK-MED ONE Stop: 04/24/19 20:51 Last Admin: 04/24/19 21:23 Dose: Not Given Documented by: [id number] Octreotide Acetate (Sandostatin) 100 mcg SQ Q8H CHEN Stop: 05/23/19 19:29 Last Admin: 04/24/19 14:45 Dose: Not Given Documented by: [id number] Ondansetron HCl (Zofran) 4 mg IV NOW STA Stop: 04/22/19 15:19 Last Admin: 04/22/19 15:34 Dose: 4 mg Documented by: [id number] Oxycodone HCl (Roxicodone) 5 mg PO Q4H PRN PRN Reason: Pain Stop: 05/07/19 21:28 Last Admin: 04/23/19 21:45 Dose: 5 mg Documented by: [id number] Propranolol HCl (Inderal) 5 mg PO TID [facility] Stop: 05/23/19 20:59 Last Admin: 04/24/19 08:20 Dose: 5 mg Documented by: [id number] Admin: 04/23/19 20:31 Dose: 5 mg Documented by: [id number] Spironolactone (Aldactone) 25 mg PO NOW ONE Stop: 04/22/19 17:55 Last Admin: 04/22/19 21:39 Dose: Not Given Documented by: [id number] Spironolactone (Aldactone) 50 mg PO 1915 ONE Stop: 04/22/19 19:16 Last Admin: 04/22/19 21:27 Dose: Not Given Documented by: [id number] Spironolactone (Aldactone) 100 mg PO QAM [facility] Stop: 05/23/19 08:59 Last Admin: 04/22/19 20:48 Dose: 100 mg Documented by: [id number] Medical Decision Making Differential Diagnosis Differential diagnosis: Etiologies such as spontaneous bacterial peritonitis, viral syndrome, otitis, pharyngitis, pneumonia, influenza, meningitis, urinary tract infection, septic arthritis, soft tissue infectious process, intra-abdominal process, sepsis, bacteremia, as well as others were entertained. Medical Records Attestation: I reviewed the patient's medical records. Home Medications Current Medication List: was personally reviewed by me Laboratory Data Attestation: I reviewed the patient's lab results. Result diagrams: 04/24/19 20:31 04/24/19 20:31 Lab Results 04/22/19 04/22/19 04/22/19 Range/Units 14:00 14:00 14:48 WBC 20.60 H (4.8-10.8) K/uL RBC 3.81 L (4.2-5.4) M/uL Hgb 11.5 L (12.0-16.0) g/dL Hct 33.3 L (37-47) % MCV 87.4 (80-100) fL MCH 30.2 (25-34) pg MCHC 34.5 (32-36) g/dL RDW Std Deviation 55.5 H (36.4-46.3) fL RDW Coeff of Spenser 17.6 H (11.5-14.5) % Plt Count 323 (130-400) K/uL MPV 10.0 (7.4-10.4) fL Immature Gran % (Auto) 0.7 % Neut % (Auto) 80.0 % Lymph % (Auto) 12.0 % Lincoln % (Auto) 6.4 % Eos % (Auto) 0.5 % Baso % (Auto) 0.4 % Immature Gran # (Auto) 0.14 H (0.00-0.02) K/uL Neut # (Auto) 16.46 H (1.4-6.5) K/uL Lymph # (Auto) 2.48 (1.2-3.4) K/uL Lincoln # (Auto) 1.32 H (0.11-0.59) K/uL Eos # (Auto) 0.11 (0-0.5) K/uL Baso # (Auto) 0.09 (0-0.2) K/uL PT 13.8 H (9.0-12.0) Seconds INR 1.4 H (0.9-1.1) Sodium 135 L (136-145) mmol/L Potassium 3.8 (3.5-5.1) mmol/L Chloride 105 (98-107) mmol/L Carbon Dioxide 23 (21-32) mmol/L Anion Gap 7.0 (3-11) BUN 13 (7-18) mg/dl Creatinine 0.90 (0.6-1.2) mg/dl Est Cr Clr Drug Dosing 54.9 ml/min Est GFR ( Amer) 87.6 Est GFR (Non-Af Amer) 75.6 BUN/Creatinine Ratio 14.0 (10-20) Glucose 92 (70-99) mg/dl POC Lactic Acid Willie (0.90-1.70) mmol/L Calcium 8.2 L (8.5-10.1) mg/dl Total Bilirubin 1.0 (0.2-1) mg/dl AST 31 (15-37) U/L ALT 18 (12-78) U/L Alkaline Phosphatase 176 H (45-117) U/L Total Protein 6.5 (6.4-8.2) gm/dl Albumin 2.4 L (3.4-5.0) gm/dl Globulin 4.1 H (2.5-4.0) gm/dl Albumin/Globulin Ratio 0.6 L (0.9-2) Lipase 105 (73-393) U/L 04/22/19 Range/Units 14:48 WBC (4.8-10.8) K/uL RBC (4.2-5.4) M/uL Hgb (12.0-16.0) g/dL Hct (37-47) % MCV (80-100) fL MCH (25-34) pg MCHC (32-36) g/dL RDW Std Deviation (36.4-46.3) fL RDW Coeff of Spenser (11.5-14.5) % Plt Count (130-400) K/uL MPV (7.4-10.4) fL Immature Gran % (Auto) % Neut % (Auto) % Lymph % (Auto) % Lincoln % (Auto) % Eos % (Auto) % Baso % (Auto) % Immature Gran # (Auto) (0.00-0.02) K/uL Neut # (Auto) (1.4-6.5) K/uL Lymph # (Auto) (1.2-3.4) K/uL Lincoln # (Auto) (0.11-0.59) K/uL Eos # (Auto) (0-0.5) K/uL Baso # (Auto) (0-0.2) K/uL PT (9.0-12.0) Seconds INR (0.9-1.1) Sodium (136-145) mmol/L Potassium (3.5-5.1) mmol/L Chloride (98-107) mmol/L Carbon Dioxide (21-32) mmol/L Anion Gap (3-11) BUN (7-18) mg/dl Creatinine (0.6-1.2) mg/dl Est Cr Clr Drug Dosing ml/min Est GFR ( Amer) Est GFR (Non-Af Amer) BUN/Creatinine Ratio (10-20) Glucose (70-99) mg/dl POC Lactic Acid Willie 1.26 (0.90-1.70) mmol/L Calcium (8.5-10.1) mg/dl Total Bilirubin (0.2-1) mg/dl AST (15-37) U/L ALT (12-78) U/L Alkaline Phosphatase (45-117) U/L Total Protein (6.4-8.2) gm/dl Albumin (3.4-5.0) gm/dl Globulin (2.5-4.0) gm/dl Albumin/Globulin Ratio (0.9-2) Lipase (73-393) U/L Imaging Data Radiologist's Impression: Radiology results as stated below per my review and the radiologist's interpretation: XR chest 1V portable CLINICAL HISTORY: 48 years-old Female presenting with fever. TECHNIQUE: Portable upright AP view of the chest was obtained. COMPARISON: 04/04/2019. FINDINGS: Cardiomediastinal silhouette normal. Minimal basilar opacities. No pleural effusion or pneumothorax. Osseous structures normal. Upper abdomen normal. IMPRESSION: 1. Minimal basilar opacities likely atelectasis or scarring. No convincing evidence of acute cardiopulmonary disease. Electronically signed by: Jeffrey Becerra M.D. 04/22/2019 1:50 PM US abdomen limited CLINICAL HISTORY: 48 years-old Female presenting with ascites, check pocket for paracentesis. TECHNIQUE: Real-time grayscale and limited color Doppler ultrasound imaging of the abdomen limited to evaluation for ascites was performed. COMPARISON: 03/21/2019. FINDINGS: Ascites: Large volume simple appearing ascites throughout the abdomen in all 4 quadrants. Other: None. IMPRESSION: Large volume simple ascites. Electronically signed by: Jeffrey Becerra M.D. 04/22/2019 4:53 PM Dictated: 04/22/191652 Transcribed: 04/22/191652 US paracentesis abd w/image CLINICAL HISTORY: 48 years-old Female presenting with SBP. COMPARISON: 03/21/2019. PROCEDURE: The procedure and its risks, benefits, and alternatives were discussed with the patient, and written informed consent was obtained. A timeout was performed to c onfirm patient identity. Limited ultrasound of the abdomen was performed to determine a safe needle entry site, and the site was marker for paracentesis. The left lower quadrant was prepped and draped in the usual aseptic fashion. 1% Lidocaine was used for local anesthesia. A paracentesis needle-sheath was inserted into the peritoneal space using ultrasound guidance. The needle was removed and the sheath was connected to tubing and a vacuum suction device. A total of 5 L of clear yellow ascites was aspirated. The sheath was removed, and a dressing applied. The patient tolerated the procedure well. No immediate complications. IMPRESSION: Ultrasound-guided diagnostic and therapeutic paracentesis with aspiration of 5 L of ascites. Electronically signed by: Jeffrey Becerra M.D. 04/22/2019 4:54 PM Dictated: 04/22/191652 Transcribed: 04/22/191652 Blood Pressure Blood Pressure Findings: Normal blood pressure MDM Narrative This patient was evaluated and appeared to be in no significant distress. IV access was obtained and laboratory work was drawn. The patient was placed on the monitoring coordinator and found to be in a normal sinus rhythm. Patient is found to be febrile and given p.o. Tylenol. Blood cultures were sent. Patient has a normal lactate. Chest x-ray was obtained and reveals mild bibasilar opacities. Patient was given IV Dilaudid and Zofran for her pain per her request. Given the high suspicion for SBP, the patient was given IV ceftriaxone and vancomycin. Patient's WBC is 20,000. Ultrasound-guided paracentesis was ordered. Patient was discussed with the hospitalist service for admission and further management. Patient is aware of the plan and agrees. Impression & Plan Fever, Cirrhosis of liver, SBP (spontaneous bacterial peritonitis) Discharge Plan Visit Data *Final* Discharge Date/Time: 04/22/19 19:03 Chief Complaint: Abdominal Pain ED Provider: Loreto Ambrosio ED Midlevel Provider: Jose M Jordan Discharge Problem: Fever, Cirrhosis of liver, SBP (spontaneous bacterial peritonitis) Patient Disposition: Admitted As Inpatient Discharge Instructions Interventions: ED Discharge Assessment Last Done: 04/22/19 19:03 Discharge Problem: Fever Qualifiers: Fever type: unspecified Qualified Code(s): R50.9 - Fever, unspecified Cirrhosis of liver Qualifiers: Hepatic cirrhosis type: alcoholic cirrhosis Ascites presence: with ascites Qualified Code(s): K70.31 - Alcoholic cirrhosis of liver with ascites The scribe's documentation has been prepared under my direction and personally reviewed by me in its entirety. I confirm that the note above accurately reflects all work, treatment, procedures, and medical decision making performed by me.
--- NOTE | 2019-04-22 16:55 | Ultrasound Report ---
US abdomen limited CLINICAL HISTORY: 48 years-old Female presenting with ascites, check pocket for paracentesis. TECHNIQUE: Real-time grayscale and limited color Doppler ultrasound imaging of the abdomen limited to evaluation for ascites was performed. COMPARISON: 03/21/2019. FINDINGS: Ascites: Large volume simple appearing ascites throughout the abdomen in all 4 quadrants. Other: None. IMPRESSION: Large volume simple ascites. Electronically signed by: Jeffrey Becerra M.D. 04/22/2019 4:53 PM
--- NOTE | 2019-04-22 16:55 | Ultrasound Report ---
US paracentesis abd w/image CLINICAL HISTORY: 48 years-old Female presenting with SBP. COMPARISON: 03/21/2019. PROCEDURE: The procedure and its risks, benefits, and alternatives were discussed with the patient, and written informed consent was obtained. A timeout was performed to confirm patient identity. Limited ultrasound of the abdomen was performed to determine a safe needle entry site, and the site w as marker for paracentesis. The left lower quadrant was prepped and draped in the usual aseptic fashion. 1% Lidocaine was used fo r local anesthesia. A paracentesis needle-sheath was inserted into the peritoneal space using ultrasound guidance. The ne edle was removed and the sheath was connected to tubing and a vacuum suction device. A total of 5 L o f clear yellow ascites was aspirated. The sheath was removed, and a dressing applied. The patient tolerated the procedure well. No immediate complications. IMPRESSION: Ultrasound-guided diagnostic and therapeutic paracentesis with aspiration of 5 L of ascites. Electronically signed by: Jeffrey Becerra M.D. 04/22/2019 4:54 PM
[2019-04-22 17:16] LABS: Color Body Fluid YELLOW; Mononuclear WBC Body Fluid 22.5 %; Polynuclear WBC Body Fluid 77.5 %; RBC Body Fluid (A) < 3000 /uL; WBC Body Fluid (A) 3009 /uL
[2019-04-22 17:17] LABS: Source Body Fluid PERITONEAL
--- NOTE | 2019-04-22 17:31 | History & Physical Report ---
Date of Service April 22, 2019 History of Present Illness Chief Complaint: Fever Primary Care Provider: Luzma Colvin, DO Caveat. History Limited by - Patient is a vague historian and drowsy. Judi Nunn is a 48-year-old female with a past medical history of alcohol abuse, alcoholic cirrhosis, and ascites who was admitted for fever, abdominal pain, and concerns for SBP. Onset of illness was about 2 days ago per patient. She reported subjective fever, nausea without any coffee ground emesis, constant worsening abdominal pain. She denies any recent alcohol intake. In addition, she has had onset of blisters with erythema to bilateral lower extremities. When seen for evaluation in the ED for admission, patient had returned from radiology where 5L of fluid was drained via paracentesis. She noted improvement in pain. She most recently had several recent hospital stays here, with most recent 04/04/19- 04/11/19 for hematemesis, coffee-ground emesis, and hypotension. She required ICU admission for hypotension and recovered well following downgrade. Gastroduodenoscopy revealed a cratered esophageal ulcer, 3 nonbleeding gastric ulcers, and a prominent vessel which was injected with epinephrine for hemostasis. Judi has a history of chronic baseline hypertension with systolic pressures in the low 100s. She received 4 units of packed red blood cells at this visit. During her admission to the ICU she had to paracenteses performed with each removing 5 L of fluid. She was discharged home on Cipro for SBP prophylaxis. Further review of records show another recent admission to [facility] from 03/25- 03/30/2019 for low back pain and loose stools of 1-1/2 weeks duration, and was diagnosed with C. difficile colitis. She was discharged on vancomycin 125 mg p.o. 4 times daily. Judi had been seen by the care team several times in the past for admissions related to alcohol abuse and cirrhosis. But she maintains that she has been sober since beginning of March. Allergies Allergy/AdvReac Type Severity Reaction Status Date / Time Bactrim Allergy Severe CHEST PAIN Unverified 12/26/16 19:35 sulfamethoxazole Allergy Severe CHEST PAIN Verified 04/22/19 13:31 trimethoprim Allergy Severe CHEST PAIN Verified 04/22/19 13:31 Home Medications Home Medications Medication Instructions Recorded Confirmed Type mecobalamin (vitamin B12) 1,000 1,000 mcg SL DAILY #30 tab 03/16/19 04/22/19 Rx mcg disintegrating tablet,sublingual thiamine HCl (vitamin B1) 100 mg 100 mg PO DAILY #30 tab 03/16/19 04/22/19 Rx tablet ciprofloxacin HCl 500 mg PO BID #60 tab 04/11/19 04/22/19 Rx albuterol sulfate 2.5 mg/3 mL 2.5 mg INH Q4H PRN #3 ml 04/12/19 04/22/19 Rx (0.083 %) solution for nebulization buspirone 5 mg tablet 5 mg PO DAILY #30 tab 04/12/19 04/22/19 Rx Past Med/Surg History Medical History Neuropathy (Acute) Heartburn (Acute) Depression with anxiety (Acute) Alcohol dependence (Acute) Alcoholic cirrhosis of liver Herpes simplex Ascites due to alcoholic cirrhosis Anxiety and depression Diabetes Heart disease Acute anemia (Resolved) ETOH abuse (Resolved) Elevated LFTs (Resolved) Hypoalbuminemia (Resolved) Hypokalemia (Resolved) Hypomagnesemia (Resolved) Hypomagnesemia (Resolved) Hyponatremia (Resolved) Pneumonia (Resolved) Tobacco abuse (Resolved) Abdominal distension Abdominal pain Acute electrocardiogram changes C. difficile colitis Dehydration E. coli UTI Elevated WBC count Leukocytosis Leukocytosis Lumbar pain Nausea vomiting and diarrhea Prolonged INR Rash Surgical History H/O dilation and curettage History of abdominal paracentesis 3L in February 2019 Previous section Family History Sister Drug abuse Father Stroke Hypertension Dyslipidemia (high LDL; low HDL) Tobacco abuse Mother Depression Stroke Hypertension Other No significant family history Social History Preferred Language: Georgian Communication Ability: Impaired Beliefs That Will Affect Care: None marital status: Current Living Situation: Spouse Current Living Situation Comment: , "his son, my dtr, her dtr and my son" current occupational status: unemployed Feels Safe at Home: Yes Smoking Status: Current every day smoker Tobacco Type: cigarettes Cigarettes Per Day: 10 Second Hand Exposure: No Hx Alcohol Use: No Hx Substance Use: No Dental Care, Regularly: No Seatbelt Use: always Review of Systems Review of Systems: All systems reviewed & are unremarkable except as noted in HPI & below Constitutional: + fever Eyes: no eye pain Ear, Nose, Mouth, Throat: no ear pain Respiratory: + cough Cardiovascular: + edema Gastrointestinal: + abdominal pain and + nausea Genitourinary: no dysuria and no pelvic pain Musculoskeletal: no back pain and no neck pain Integumentary: + new lesions and + erythema Physical Exam Constitutional: + ill appearing Results & Data Vital Signs (Past 12 Hours) Vital Signs Temp Pulse Resp BP Pulse Ox 04/22/19 15:30 104 H 16 108/74 100 04/22/19 15:00 102 H 30 H 106/77 99 04/22/19 14:30 99 H 29 H 107/76 99 04/22/19 14:18 100 H 26 H 107/76 99 04/22/19 12:56 98 H 23 113/72 100 04/22/19 12:52 38.2 C H 97 H 18 113/72 99
--- NOTE | 2019-04-22 17:32 | History & Physical Report ---
Date of Service April 22, 2019 Assessment & Plan (1) Sepsis: Judi Nunn is a 48-year-old female with a past medical history of alcohol abuse, alcoholic cirrhosis, and ascites who was admitted for sepsis with fever, abdominal pain, and concerns for SBP. - Leukocytosis on admission of 20 with concerns for SBP and also with lower extremity cellulitis. - Lactate in ED was negative, and patient is hemodynamically stable on admission s/p paracentesis and IVFs. - Blood cultures were drawn. - Was febrile on presentation 38.2 C - Continue with treatment of presumed SBP with Rocephin 2gm qday; Treat LE cellulitis (hx of MRSA) with Vancomycin IV - CXR with no signs for infectious source - Albuterol PRN for dyspnea Admit to med/surg with tele. Code: Full Code [id number]: Lovenox 40mg SQ qAM (2) SBP (spontaneous bacterial peritonitis): - Continue with treatment of presumed SBP with Rocephin 2gm qday - Fluid analysis pending (3) Fever: Was febrile on presentation 38.2 C in ED and received Acetaminophen 650mg PO x1 continue to monitor vitals (4) Ascites due to alcoholic cirrhosis: chronic abdominal ascites in the setting of alcoholic liver cirrhosis - She had Ultrasound-guided diagnostic and therapeutic paracentesis with aspiration of 5 L of ascites (04/22) after US Abd showed large volume simple ascites. - Has had in the past and has had quick re-accumulation, will monitor clinically for reaccumulation. - Will start Spironolactone 50mg PO today, then start 100mg qAM; Lasix 40mg today, then 40mg qAM - continue with Vit B1 and B12 (5) Bilateral lower leg cellulitis: as above, treatment with IV Vancy and wound care. (6) Hypotension: history of chronic baseline hypertension with systolic pressures in the low 100s - vitals are stable (7) Anxiety and depression: continue with Buspirone 5mg PO daily History of Present Illness Primary Care Provider: Luzma Colvin, Caveat. History Limited by - Patient is a vague historian and drowsy. Judi Nunn is a 48-year-old female with a past medical history of alcohol abuse, alcoholic cirrhosis, and ascites who was admitted for fever, abdominal pain, and concerns for SBP. Onset of illness was about 2 days ago per patient. She reported subjective fever, nausea without any coffee ground emesis, constant worsening abdominal pain. She denies any recent alcohol intake. In addition, she has had onset of blisters with erythema to bilateral lower extremities. When seen for evaluation in the ED for admission, patient had returned from radiology where 5L of fluid was drained via paracentesis. She noted improvement in pain. She most recently had several recent hospital stays here, with most recent 04/04/19- 04/11/19 for hematemesis, coffee-ground emesis, and hypotension. She required ICU admission for hypotension and recovered well following downgrade. Gastroduodenoscopy revealed a cratered esophageal ulcer, 3 nonbleeding gastric ulcers, and a prominent vessel which was injected with epinephrine for hemostasis. Judi has a history of chronic baseline hypertension with systolic pressures in the low 100s. She received 4 units of packed red blood cells at this visit. During her admission to the ICU she had to paracenteses performed with each removing 5 L of fluid. She was discharged home on Cipro for SBP prophylaxis. Further review of records show another recent admission to [facility] from 03/25- 03/30/2019 for low back pain and loose stools of 1-1/2 weeks duration, and was diagnosed with C. difficile colitis. She was discharged on vancomycin 125 mg p.o. 4 times daily. Judi had been seen by the care team several times in the past for admissions related to alcohol abuse and cirrhosis. But she maintains that she has been sober since beginning of March. In [facility] ED, course of care included but was not limited to: Rocephin 2gmx1 IV; Vancomycin 1gmx1 IV, Dialudid 0.5mg IV, IVFs NSS. Acetaminophen 650mg PO x1, Zofran 4mg IVx1 Allergies Allergy/AdvReac Type Severity Reaction Status Date / Time Bactrim Allergy Severe CHEST PAIN Unverified 12/26/16 19:35 sulfamethoxazole Allergy Severe CHEST PAIN Verified 04/22/19 13:31 trimethoprim Allergy Severe CHEST PAIN Verified 04/22/19 13:31 Home Medications Home Medications Medication Instructions Recorded Confirmed Type mecobalamin (vitamin B12) 1,000 1,000 mcg SL DAILY #30 tab 03/16/19 04/22/19 Rx mcg disintegrating tablet,sublingual thiamine HCl (vitamin B1) 100 mg 100 mg PO DAILY #30 tab 03/16/19 04/22/19 Rx tablet ciprofloxacin HCl 500 mg PO BID #60 tab 04/11/19 04/22/19 Rx albuterol sulfate 2.5 mg/3 mL 2.5 mg INH Q4H PRN #3 ml 04/12/19 04/22/19 Rx (0.083 %) solution for nebulization buspirone 5 mg tablet 5 mg PO DAILY #30 tab 04/12/19 04/22/19 Rx Past Med/Surg History Medical History Neuropathy (Acute) Heartburn (Acute) Depression with anxiety (Acute) Alcohol dependence (Acute) Alcoholic cirrhosis of liver Herpes simplex Ascites due to alcoholic cirrhosis Anxiety and depression Diabetes Heart disease Acute anemia (Resolved) ETOH abuse (Resolved) Elevated LFTs (Resolved) Hypoalbuminemia (Resolved) Hypokalemia (Resolved) Hypomagnesemia (Resolved) Hypomagnesemia (Resolved) Hyponatremia (Resolved) Pneumonia (Resolved) Tobacco abuse (Resolved) Abdominal distension Abdominal pain Acute electrocardiogram changes C. difficile colitis Dehydration E. coli UTI Elevated WBC count Leukocytosis Leukocytosis Lumbar pain Nausea vomiting and diarrhea Prolonged INR Rash Surgical History H/O dilation and curettage History of abdominal paracentesis 3L in February 2019 Previous section Family History Sister Drug abuse Father Stroke Hypertension Dyslipidemia (high LDL; low HDL) Tobacco abuse Mother Depression Stroke Hypertension Other No significant family history Social History Preferred Language: Surinamese Communication Ability: Effective Beliefs That Will Affect Care: None marital status: Current Living Situation: Spouse Current Living Situation Comment: , "his son, my dtr, her dtr and my son" current occupational status: unemployed Feels Safe at Home: Yes Smoking Status: Current every day smoker Tobacco Type: cigarettes Cigarettes Per Day: 10 Second Hand Exposure: No Hx Alcohol Use: Yes Alcohol type: beer and hard liquor Hx Substance Use: No Dental Care, Regularly: No Seatbelt Use: always Review of Systems Review of Systems: All systems reviewed & are unremarkable except as noted in HPI & below Constitutional: + fever Respiratory: + cough Cardiovascular: + edema Gastrointestinal: + abdominal pain and + nausea Integumentary: + new lesions and + erythema Physical Exam Constitutional: + ill appearing, cooperative and comfortable Neck: normal visual inspection and trachea midline Respiratory: normal respiratory effort; no respiratory distress and does not use accessory muscles Auscultation: no wheezes Cardiovascular: Rate/Rhythm: regular rate and regular rhythm Extremities: + pedal edema Gastrointestinal (Abdomen): Inspection/Auscultation: normal bowel sounds Percussion/Palpation: + ascites; abdomen nontender Skin: ulcerations to distal bilateral anterior legs with erythema with appearance for cellulitis Neurologic: moves all extremities dowsy but easily arousable Results & Data Vital Signs (Past 12 Hours) Vital Signs Temp Pulse Resp BP Pulse Ox 04/22/19 17:11 96 H 18 106/71 97 04/22/19 15:30 104 H 16 108/74 100 04/22/19 15:00 102 H 30 H 106/77 99 04/22/19 14:30 99 H 29 H 107/76 99 04/22/19 14:18 100 H 26 H 107/76 99 04/22/19 12:56 98 H 23 113/72 100 04/22/19 12:52 38.2 C H 97 H 18 113/72 99 Laboratory Results Laboratory Results - last 24 hr 04/22/19 04/22/19 04/22/19 14:00 14:00 14:48 WBC 20.60 H RBC 3.81 L Hgb 11.5 L Hct 33.3 L MCV 87.4 MCH 30.2 MCHC 34.5 RDW Std Deviation 55.5 H RDW Coeff of Spenser 17.6 H Plt Count 323 MPV 10.0 Immature Gran % (Auto) 0.7 Neut % (Auto) 80.0 Lymph % (Auto) 12.0 [place] % (Auto) 6.4 Eos % (Auto) 0.5 Baso % (Auto) 0.4 Immature Gran # (Auto) 0.14 H Neut # (Auto) 16.46 H Lymph # (Auto) 2.48 [place] # (Auto) 1.32 H Eos # (Auto) 0.11 Baso # (Auto) 0.09 PT 13.8 H INR 1.4 H Sodium 135 L Potassium 3.8 Chloride 105 Carbon Dioxide 23 Anion Gap 7.0 BUN 13 Creatinine 0.90 Est Cr Clr Drug Dosing 54.9 Est GFR ( Amer) 87.6 Est GFR (Non-Af Amer) 75.6 BUN/Creatinine Ratio 14.0 Glucose 92 POC Lactic Acid Willie Calcium 8.2 L Total Bilirubin 1.0 AST 31 ALT 18 Alkaline Phosphatase 176 H Total Protein 6.5 Albumin 2.4 L Globulin 4.1 H Albumin/Globulin Ratio 0.6 L Lipase 105 Fluid Source Fluid Color Fluid Appearance Fluid WBC Fluid RBC Fluid Polynuclear WBCs Fluid Mononuclear WBCs 04/22/19 04/22/19 14:48 Unknown WBC RBC Hgb Hct MCV MCH MCHC RDW Std Deviation RDW Coeff of Spenser Plt Count MPV Immature Gran % (Auto) Neut % (Auto) Lymph % (Auto) [place] % (Auto) Eos % (Auto) Baso % (Auto) Immature Gran # (Auto) Neut # (Auto) Lymph # (Auto) Wy[place] # (Auto) Eos # (Auto) Baso # (Auto) PT INR Sodium Potassium Chloride Carbon Dioxide Anion Gap BUN Creatinine Est Cr Clr Drug Dosing Est GFR ( Amer) Est GFR (Non-Af Amer) BUN/Creatinine Ratio Glucose POC Lactic Acid Willie 1.26 Calcium Total Bilirubin AST ALT Alkaline Phosphatase Total Protein Albumin Globulin Albumin/Globulin Ratio Lipase Fluid Source PERITONEAL Fluid Color YELLOW Fluid Appearance CLOUDY Fluid WBC 3009 Fluid RBC < 3000 Fluid Polynuclear WBCs 77.5 Fluid Mononuclear WBCs 22.5 Medications Administered Sodium Chloride (Nss 1000ml) 1,000 mls @ 125 mls/hr IV .Q8H CHEN Stop: 05/22/19 14:44 Last Admin: 04/22/19 15:19 Dose: 125 mls/hr Documented by: [id number] Code Status & VTE Plan Code Status Full VTE Prophylaxis Plan VTE Prophylaxis will be ordered: Yes Supervising Physician Co-Signing Physician Notes Patient seen and examined independently of resident provider.. Agree with history, physical exam findings, assessment and plan as documented with the following updates. 48-year-old female with a hx of alcohol abuse, alcoholic cirrhosis, and ascites who was admitted for sepsis with fever, abdominal pain, and concerns for SBP. 1. Sepsis secondary to SBP in the setting of EOTH cirrhosis - peritoneal fluid culture pending . Continue ceftriaxone 2g qd. 2. Lower extremity cellulitis, bilateral - previous hx of MRSA, treating with vanc 3. ROBERTO ?hypoperfusion vs hepatorenal - Cr 0.9?1.28 without bump in BUN 4. Ascites 2/2 cirrhosis - s/p para, 5L off on 04/22 - does have some evidence of hepatic dysfunction (low albumin, elevated INR) 5. chronic anemia - ?baseline hgb PG Care Time/CCT Total # of Minutes Spent Total Time Spent with Patient: Total time spent is greater than 50% in coordination of care (as documented) at patient's floor/unit and/or counseling patient: Resident Activity Tracking Resident Involvement: Resident Care Provided Care Provided: Adult Hospital Medicine (1) Fever Fever type: unspecified Qualified Code(s): R50.9 - Fever, unspecified
[2019-04-22] MEDS ORDERED: ALBUTEROL 0.083% NEBU SOLN 3 ML VIAL INH PRN (17:42)
[2019-04-22] MEDS ORDERED: SPIRONOLACTONE 25 MG TAB PO ONE ×2 (17:54→19:15)
[2019-04-22] MEDS ORDERED: FUROSEMIDE 40 MG TAB PO ONE (19:15)
[2019-04-22] MEDS ORDERED: ENOXAPARIN INJ 40 MG/0.4 ML SYR SQ ONE (19:15)
[2019-04-22] MEDS ORDERED: HYDROmorphone INJ 1 MG/ML SYRINGE IV PRN (21:32)
[2019-04-22] MEDS ORDERED: ACETAMINOPHEN 325 MG TAB PO PRN (21:38)
[2019-04-22] MEDS: ALBUMIN 25% 50 ML IV SCH ×2 (22:48→23:25)
[2019-04-23] MEDS: SODIUM CHLORIDE 0.9% 1000ML 1,000 ML IV SCH ×4 (03:16→22:40)
[2019-04-23] MEDS ORDERED: VANCOMYCIN HCL 750 MG in SODIUM CHLORIDE 0.9% 250 ML IV SCH (07:00)
[2019-04-23 07:15] LABS: Basophils # (auto) 0.01 K/uL (0-0.2); Basophils % (auto) 0.1 %; Hematocrit (blood only) 29.2 % (37-47); Immature Granulocytes # (auto) 0.08 K/uL (0.00-0.02); Immature Granulocytes % (auto) 0.5 %; Lymphocytes # (auto) 1.09 K/uL (1.2-3.4); Lymphocytes % (auto) 7.1 %; Mean Corpuscular Hgb Conc 34.2 g/dL (32-36); Mean Platelet Volume 9.8 fL (7.4-10.4); Monocytes # (auto) 0.79 K/uL (0.11-0.59); Monocytes % (auto) 5.1 %; Neutrophils # (auto) 13.43 K/uL (1.4-6.5); Neutrophils % (auto) 87.2 %; Platelet Count 230 K/uL (130-400); RDW Coefficient of Variation 17.7 % (11.5-14.5); RDW Standard Deviation 57.2 fL (36.4-46.3); Red Blood Count 3.32 M/uL (4.2-5.4)
[2019-04-23 07:30] LABS: INR 2.2 (0.9-1.1); Prothrombin Time 20.9 Seconds (9.0-12.0)
[2019-04-23 07:52] LABS: Albumin Level 2.1 gm/dl (3.4-5.0); BUN Creatinine Ratio 11.6 (10-20); Calcium 7.5 mg/dl (8.5-10.1); Creatinine Clr Calc Pharmacy 32.6 ml/min; Est GFR (African American) 57.2; Est GFR (Non-African American) 49.4; Potassium 3.5 mmol/L (3.5-5.1)
[2019-04-23 08:00] LABS: Albumin Globulin Ratio 0.7 (0.9-2); Bilirubin,Total 1.2 mg/dl (0.2-1); Globulin 2.9 gm/dl (2.5-4.0)
[2019-04-23] MEDS ORDERED: FUROSEMIDE 40 MG TAB PO SCH (09:00)
[2019-04-23] MEDS ORDERED: SPIRONOLACTONE 25 MG TAB PO SCH (09:00)
[2019-04-23] MEDS ORDERED: SPIRONOLACTONE 100 MG TAB PO SCH (09:00)
[2019-04-23] MEDS ORDERED: ENOXAPARIN INJ 40 MG/0.4 ML SYR SQ SCH (09:00)
[2019-04-23] MEDS: CYANOCOBALAMIN 500 MCG TABLET (VITAMIN B-12) PO SCH (09:26)
[2019-04-23] MEDS: THIAMINE HCL 100 MG TAB PO SCH (09:27)
[2019-04-23] MEDS ORDERED: HYDROmorphone INJ 0.5 MG/0.5 ML SYR IV PRN (09:38)
--- NOTE | 2019-04-23 09:40 | Family Medicine Progress Note ---
Date of Service April 23, 2019 Assessment & Plan (1) Sepsis: Judi Nunn is a 48-year-old female with a past medical history of alcohol abuse, alcoholic cirrhosis, and ascites who was admitted for sepsis with fever, abdominal pain, and concerns for SBP. - Leukocytosis on admission of 20 with concerns for SBP and also with lower extremity cellulitis. - 04/23 AM WBC improved to 15.4. - Lactate in ED was negative, paracentesis in ED. - Blood cultures were drawn w/NGTD; Peritoneal fluid culture negative on gram stain and NGTD. - Was febrile on presentation 38.2 C and was afebrile overnight with Tylenol x1 in ED yesterday. C/w Tylenol 325mg q4h PRN. - Continue with treatment of presumed SBP until negative culture with Rocephin 2gm qday; Treating LE cellulitis (hx of MRSA) with Vancomycin IV - Appears to follow with [facility], consult order placed - Has Maddrey's DF score of 46; since >32 will start Pentoxifylline 400mg TID. - Hypotensive overnight and night team ordered IV Albumin. - 04/23 started Midodrine 10mg PO TID to help support blood pressure - CXR with no signs for infectious source - Dilaudid 0.5mg IV q6h for severe abdominal pain. Discussed with patient that this comes with risk for lowering BP which could result in , patient is aware and expressed understanding. - Albuterol PRN for dyspnea Admit to med/surg with tele --> upgraded to PCU/tele last night Code: Full Code DVTppx: Lovenox 40mg SQ qAM (2) SBP (spontaneous bacterial peritonitis): - Continue with treatment of presumed SBP with Rocephin 2gm qday - Peritoneal fluid culture negative on gram stain and NGTD. (3) Fever: Was febrile on presentation 38.2 C in ED and received Acetaminophen 650mg PO x1 continue to monitor vitals C/w Tylenol 325mg q4h PRN. (4) Ascites due to alcoholic cirrhosis: chronic abdominal ascites in the setting of alcoholic liver cirrhosis - She had Ultrasound-guided diagnostic and therapeutic paracentesis with aspiration of 5 L of ascites (04/22) after US Abd showed large volume simple ascites. - Has had in the past and has had quick re-accumulation, will monitor clinically for reaccumulation. - Unable to treat with Spironolactone and/or Lasix because of chronic hypotension - continue with Vit B1 and B12 (5) Bilateral lower leg cellulitis: as above, treatment with IV Vancy and wound care. - appears resolving (6) Hypotension: history of chronic baseline hypertension with systolic pressures in the low 100s - as above, avoid diuretics (7) Anxiety and depression: continue with Buspirone 5mg PO daily Supervising Physician Co-Signing Physician Notes Patient seen and examined independently of resident provider.. Agree with history, physical exam findings, assessment and plan as documented with the following updates. 48-year-old female with a hx of alcohol abuse, alcoholic cirrhosis, and ascites who was admitted for sepsis with fever, abdominal pain, and concerns for SBP. 1. Sepsis secondary to SBP in the setting of EOTH cirrhosis - peritoneal fluid culture pending . Continue ceftriaxone 2g qd. 2. Lower extremity cellulitis, bilateral - previous hx of MRSA, treating with vanc 3. ROBERTO ?hypoperfusion vs hepatorenal will monitor creatinine 4. Ascites 2/2 cirrhosis - s/p para, 5L off on 04/22 - does have some evidence of hepatic dysfunction (low albumin, elevated INR) 5. chronic anemia - ?baseline hgb 6. Hypotension likely hepatorenal ordered pentoxyfyline. Subjective Caveat: History Limited by - patient is a vague historian. Judi notes abdominal pain this morning that is central and typical for her cirrhosis. She is more alert than from ED yesterday. She notes that she continues to have diarrhea that is persistent for the past several months. She also notes continuing to feel weak. She notes she is a full code on repeat questioning. She cannot recall if she saw Palliative Care in the past. She is aware that pain medication for abdominal pain carries risk for decreasing BP that can lead to , which is concerning since she has baseline hypotension and is ill. Overnight team reported hypotensive readings requiring Albumin IV and upgrade to PCU. Review of Systems Review of Systems: All systems reviewed & are unremarkable except as noted in HPI & below Physical Exam Constitutional: + ill appearing, cooperative and comfortable Neck: normal visual inspection and trachea midline Respiratory: normal respiratory effort; no respiratory distress and does not use accessory muscles Auscultation: no wheezes Cardiovascular: Rate/Rhythm: regular rate and regular rhythm Extremities: + pedal edema Gastrointestinal (Abdomen): Inspection/Auscultation: normal bowel sounds Percussion/Palpation: + ascites; abdomen nontender Skin: lower leg erythema from wounds is resolving, appears much improved today without increase in warmth Neurologic: moves all extremities Results & Data Vital Signs (Past 12 Hours) Vital Signs Temp Pulse Pulse Pulse Resp BP BP 04/23/19 07:13 37.1 C 108 H 18 81/51 L 04/23/19 03:18 36.9 C 108 H 16 79/46 L 04/23/19 00:10 115 H 16 82/50 L 04/22/19 23:34 120 H 04/22/19 23:15 37.5 C 118 H 18 84/53 L 04/22/19 22:20 86/62 L 04/22/19 21:50 107 H 20 73/52 L 04/22/19 21:43 106 H Pulse Ox 04/23/19 07:13 98 04/23/19 03:18 98 04/23/19 00:10 04/22/19 23:34 04/22/19 23:15 98 04/22/19 22:20 04/22/19 21:50 04/22/19 21:43 Medications Administered Buspirone HCl (Buspar) 5 mg PO DAILY CHEN Stop: 05/23/19 08:59 Last Admin: 04/23/19 09:26 Dose: 5 mg Documented by: [id number] Cyanocobalamin (Vitamin B-12) 1,000 mcg PO DAILY CHEN Stop: 05/23/19 08:59 Last Admin: 04/23/19 09:26 Dose: 1,000 mcg Documented by: [id number] Hydromorphone HCl (Dilaudid) 0.5 mg IV Q6H PRN PRN Reason: Pain Stop: 04/24/19 07:00 Last Admin: 04/23/19 09:58 Dose: 0.5 mg Documented by: [id number] Sodium Chloride (Nss 1000ml) 1,000 mls @ 125 mls/hr IV .Q8H CHEN Stop: 05/22/19 14:44 Last Admin: 04/23/19 03:16 Dose: 125 mls/hr Documented by: [id number] Infusion: 04/23/19 03:16 Dose: 125 mls/hr Documented by: [id number] Admin: 04/22/19 20:18 Dose: 125 mls/hr Documented by: [id number] Infusion: 04/22/19 20:18 Dose: 125 mls/hr Documented by: [id number] Admin: 04/22/19 15:19 Dose: 125 mls/hr Documented by: [id number] Ceftriaxone Sodium 2,000 mg/ (Dextrose) 70 mls @ 100 mls/hr IV DAILY CHEN; Protocol Stop: 05/03/19 08:59 Last Infusion: 04/23/19 10:31 Dose: 0 mls/hr Documented by: [id number] Admin: 04/23/19 09:49 Dose: 100 mls/hr Documented by: [id number] Albumin Human (Albumin 25%) 50 mls @ 50 mls/hr IV Q1H CHEN Last Infusion: 04/23/19 00:14 Dose: 0 mls/hr Documented by: [id number] Admin: 04/22/19 23:25 Dose: 50 mls/hr Documented by: [id number] Infusion: 04/22/19 23:25 Dose: 0 mls/hr Documented by: [id number] Infusion: 04/22/19 23:18 Dose: 0 mls/hr Documented by: [id number] Admin: 04/22/19 22:48 Dose: 50 mls/hr Documented by: [id number] Thiamine HCl (Vitamin B-1) 100 mg PO DAILY CHEN Stop: 05/23/19 08:59 Last Admin: 04/23/19 09:27 Dose: 100 mg Documented by: [id number] PG Care Time/CCT Total # of Minutes Spent Total Time Spent with Patient: Total time spent is greater than 50% in coordin ation of care (as documented) at patient's floor/unit and/or counseling patient: (1) Fever Fever type: unspecified Qualified Code(s): R50.9 - Fever, unspecified
[2019-04-23] MEDS: cefTRIAXone SODIUM 2,000 MG in DEXTROSE 5% 50 ML IV SCH (09:49)
[2019-04-23] MEDS ORDERED: MIDODRINE HCL 2.5 MG TAB PO SCH (12:00)
--- NOTE | 2019-04-23 12:50 | Pharmacy Report ---
Pharmacy Abx Initial Consult - Date of Service April 23, 2019 - Pharmacy Dosing Scope Date of Consult: 04/22 Consultation requested by: Dr. Cano Pharmacy is consulted to initiate Vancomycin IV dosing therapy, order appropriate labs and adjust drug dose/frequency. - Subjective The patient is a 48 year old F admitted on 04/22/19 17:41. - Objective Height: 5 ft Weight: 38.4 kg Vital Signs (Past 12hrs): Vital Signs Temp Pulse Resp BP Pulse Ox 04/23/19 11:14 37 C 104 H 16 80/51 L 94 04/23/19 07:13 37.1 C 108 H 18 81/51 L 98 04/23/19 03:18 36.9 C 108 H 16 79/46 L 98 Lab Results (24hrs): Laboratory Tests (24 Hours) 04/23/19 04/23/19 04/22/19 06:58 06:58 14:00 WBC 15.40 H Neut # (Auto) 13.43 H Creatinine 1.28 H D 0.90 Est Cr Clr Drug Dosing 32.6 54.9 04/22/19 14:00 WBC 20.60 H Neut # (Auto) 16.46 H Creatinine Est Cr Clr Drug Dosing Micro Results: 04/22/19 Unknown Gram Stain - Final Abdomen Aerobic and Anaerobic Culture - Pending 04/22/19 14:05 Aerobic Blood Culture - Pending Blood Anaerobic Blood Culture - Pending 04/22/19 14:00 Aerobic Blood Culture - Pending Blood Anaerobic Blood Culture - Pending - Risk Factors for Resistance * Hospitalization for 48 hours or more within the past 90 days - Judi has had several admissions in the last few months * 03/25 - 03/30 for c. diff colitis - treated with Vanc PO * 04/04- 04/11 for hematemesis * Antimicrobial use within the last 90 days - last admission was discharged on Cipro 500mg PO BID for SBP prophylaxis - Assessment & Plan Assessment 48 year old F with h/o DM and EtOH abuse presents to the ED with complaints of worsening flank pain. She also notes that she has had blisters and reddening of the skin of her lower extremities. 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 She normally has about 5L drained. Febrile in the ED, has been afebrile since. WBC 20 >> 15 CXR negative Blood cultures pending Abdominal fluid from paracentesis also sent for culture Plan Vancomycin IV for BLE cellulitis * At the time of admission, pharmacy was consulted to initiate vancomycin therapy. She was given a loading dose of 1000mg (21mg/kg) and ordered a maintenance regimen of 750mg (16mg/kg) Q16H - she received one dose. At the time, this regimen was appropriate based on patient's weight and renal function. * Since admission, the patient underwent US guided paracentesis where 5L of fluid was drained from the abdominal cavity. Her weight has since dropped almost 9kg. * Her SCr also jumped from 0.9 to 1.28 today. Taking her estimated half-life from 14 hours to 22 hours. * Given these drastic changes, I have canceled any ongoing orders for Vancomycin and ordered a random level for 1900 (12 hours since last dose) to assist with further dosing. Ceftriaxone for SBP (not a consult) * Continue 2gm Q24H, appropriate for indication. Pharmacy will continue to follow and will adjust dose/frequency as necessary. Thank you.
--- NOTE | 2019-04-23 14:51 | Gastrointestinal Consultation ---
Date of Consultation April 23, 2019 Assessment & Plan (1) SBP (spontaneous bacterial peritonitis): Clinical picture and Cell count from tap suggestive of SBP, doubt secondary but no chemistry sent. Recommend: Continue IV Ceftriaxone 2 gm. IV Albumin (1gm/kg) on day 3 (tomorrow). Repeat Tap tomorrow to check for response to ABx. Would send Albumin, Protein and glucose. Needs manager long term care PO ABx for SBP prophylaxis. Hold NSBB and diuretics for now. Continue PPI due to recent PUD. (2) Alcoholic cirrhosis of liver: History of Present Illness Attending Physician: Dimitris Cano 48 years old female patient with Alcoholic Liver cirrhosis, recently discharged from the hospital, was admitted for CDI, GIB with EGD showing multiple large PUD, Ascites which was taped and no SBP found at that time, now presented with a bdominal pain and fever and found with leukocytosis and tap showed leukocytosis suggestive of SBP. Currently feels better with no abdominal pain, had 5L drained and 25 gm of Albumin given, Denies any diarrhea, nausea or vomiting but abdomen still distended. No rectal bleeding or hematemesis. Allergies Allergy/AdvReac Type Severity Reaction Status Date / Time Bactrim Allergy Severe CHEST PAIN Unverified 12/26/16 19:35 sulfamethoxazole Allergy Severe CHEST PAIN Verified 04/22/19 13:31 trimethoprim Allergy Severe CHEST PAIN Verified 04/22/19 13:31 Home Medications Home Medications Medication Instructions Recorded Confirmed Type mecobalamin (vitamin B12) 1,000 1,000 mcg SL DAILY #30 tab 03/16/19 04/22/19 Rx mcg disintegrating tablet,sublingual thiamine HCl (vitamin B1) 100 mg 100 mg PO DAILY #30 tab 03/16/19 04/22/19 Rx tablet ciprofloxacin HCl 500 mg PO BID #60 tab 04/11/19 04/22/19 Rx albuterol sulfate 2.5 mg/3 mL 2.5 mg INH Q4H PRN #3 ml 04/12/19 04/22/19 Rx (0.083 %) solution for nebulization buspirone 5 mg tablet 5 mg PO DAILY #30 tab 04/12/19 04/22/19 Rx Patient History Medical History Neuropathy (Acute) Heartburn (Acute) Depression with anxiety (Acute) Alcohol dependence (Acute) Alcoholic cirrhosis of liver Herpes simplex Ascites due to alcoholic cirrhosis Anxiety and depression Diabetes Heart disease Acute anemia (Resolved) ETOH abuse (Resolved) Elevated LFTs (Resolved) Hypoalbuminemia (Resolved) Hypokalemia (Resolved) Hypomagnesemia (Resolved) Hypomagnesemia (Resolved) Hyponatremia (Resolved) Pneumonia (Resolved) Tobacco abuse (Resolved) Abdominal distension Abdominal pain Acute electrocardiogram changes C. difficile colitis Dehydration E. 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 Beliefs That Will Affect Care: None marital status: Current Living Situation: Spouse Current Living Situation Comment: , "his son, my dtr, her dtr and my son" current occupational status: unemployed Other Information That Helps Us Care for You: No Feels Safe at Home: Yes Safety Concerns: Feels Safe At This Time Smoking Status: Current every day smoker Tobacco Type: cigarettes Cigarettes Per Day: 10 Do You Dip or Chew Tobacco: No Second Hand Exposure: No Tobacco Cessation Education Requested by Patient: No Hx Alcohol Use: Yes Alcohol type: beer and hard liquor Hx Substance Use: No Dental Care, Regularly: No Seatbelt Use: always Review of Systems Constitutional: no fever, no chills, no fatigue and no weight loss Eyes: no eye pain and no worsening vision Ear, Nose, Mouth, Throat: no tinnitus, no dizziness, no nasal discharge and no epistaxis Respiratory: no cough, no dyspnea, no dyspnea on exertion and no wheezing Cardiovascular: no chest pain, no orthopnea, no palpitations and no edema Gastrointestinal: as per Subjective / HPI Genitourinary: no dysuria, no urinary frequency, no urinary incontinence and no hematuria Musculoskeletal: no stiffness and no myalgia Neurologic: no localized weakness, no paralysis, no tremor(s) and no heada francisca(s) Endocrine: no polydipsia and no polyuria Hematologic / Lymphatic: no easy bleeding and no night sweats Physical Exam Constitutional: + well hydrated, cooperative and comfortable Eyes: PERRL, conjunctivae normal, anicteric sclerae ENMT: external ear and nose normal, oropharynx normal Neck: normal visual inspection and trachea midline Respiratory: normal respiratory effort, lungs clear to auscultation Ausc ultation: no wheezes Cardiovascular: RRR, no murmur, no edema Gastrointestinal (Abdomen): Inspection/Auscultation: + abdomen distended and normal bowel sounds Percussion/Palpation: abdomen soft Musculoskeletal: no cyanosis or clubbing, extremities motor strength 5/5 Skin: no rashes, warm and dry Neurologic: awake; no focal motor deficits Motor/Sensory: no tremor Results & Data Vital Signs (Past 12 Hours) Vital Signs Temp Pulse Resp BP Pulse Ox 04/23/19 11:14 37 C 104 H 16 80/51 L 94 04/23/19 07:13 37.1 C 108 H 18 81/51 L 98 04/23/19 03:18 36.9 C 108 H 16 79/46 L 98 Laboratory Results Laboratory Results - last 24 hr 04/22/19 04/22/19 04/22/19 14:48 14:48 18:42 WBC RBC Hgb Hct MCV MCH MCHC RDW Std Deviation RDW Coeff of Spenser Plt Count MPV Immature Gran % (Auto) Neut % (Auto) Lymph % (Auto) [place] % (Auto) Eos % (Auto) Baso % (Auto) Immature Gran # (Auto) Neut # (Auto) Lymph # (Auto) [place] # (Auto) Eos # (Auto) Baso # (Auto) PT 13.8 H INR 1.4 H Sodium Potassium Chloride Carbon Dioxide Anion Gap BUN Creatinine Est Cr Clr Drug Dosing Est GFR ( Amer) Est GFR (Non-Af Amer) BUN/Creatinine Ratio Glucose POC Lactic Acid Willie 1.26 Lactate 1.6 Calcium Total Bilirubin AST ALT Alkaline Phosphatase Total Protein Albumin Globulin Albumin/Globulin Ratio Fluid Source Fluid Color Fluid Appearance Fluid WBC Fluid RBC Fluid Polynuclear WBCs Fluid Mononuclear WBCs 04/22/19 04/23/19 04/23/19 Unknown 06:58 06:58 WBC 15.40 H RBC 3.32 L Hgb 10.0 L Hct 29.2 L MCV 88.0 MCH 30.1 MCHC 34.2 RDW Std Deviation 57.2 H RDW Coeff of Spenser 17.7 H Plt Count 230 MPV 9.8 Immature Gran % (Auto) 0.5 Neut % (Auto) 87.2 Lymph % (Auto) 7.1 [place] % (Auto) 5.1 Eos % (Auto) 0.0 Baso % (Auto) 0.1 Immature Gran # (Auto) 0.08 H Neut # (Auto) 13.43 H Lymph # (Auto) 1.09 L [place] # (Auto) 0.79 H Eos # (Auto) 0.00 Baso # (Auto) 0.01 PT 20.9 H INR 2.2 H Sodium Potassium Chloride Carbon Dioxide Anion Gap BUN Creatinine Est Cr Clr Drug Dosing Est GFR ( Amer) Est GFR (Non-Af Amer) BUN/Creatinine Ratio Glucose POC Lactic Acid Willie Lactate Calcium Total Bilirubin AST ALT Alkaline Phosphatase Total Protein Albumin Globulin Albumin/Globulin Ratio Fluid Source PERITONEAL Fluid Color YELLOW Fluid Appearance CLOUDY Fluid WBC 3009 Fluid RBC < 3000 Fluid Polynuclear WBCs 77.5 Fluid Mononuclear WBCs 22.5 04/23/19 06:58 WBC RBC Hgb Hct MCV MCH MCHC RDW Std Deviation RDW Coeff of Spenser Plt Count MPV Immature Gran % (Auto) Neut % (Auto) Lymph % (Auto) [place] % (Auto) Eos % (Auto) Baso % (Auto) Immature Gran # (Auto) Neut # (Auto) Lymph # (Auto) [place] # (Auto) Eos # (Auto) Baso # (Auto) PT INR Sodium 138 Potassium 3.5 Chloride 107 Carbon Dioxide 20 L Anion Gap 11.0 BUN 15 Creatinine 1.28 H D Est Cr Clr Drug Dosing 32.6 Est GFR ( Amer) 57.2 Est GFR (Non-Af Amer) 49.4 BUN/Creatinine Ratio 11.6 Glucose 62 L POC Lactic Acid Willie Lactate Calcium 7.5 L Total Bilirubin 1.2 H AST 16 ALT 12 Alkaline Phosphatase 104 Total Protein 5.0 L D Albumin 2.1 L Globulin 2.9 Albumin/Globulin Ratio 0.7 L Fluid Source Fluid Color Fluid Appearance Fluid WBC Fluid RBC Fluid Polynuclear WBCs Fluid Mononuclear WBCs
[2019-04-23] MEDS: PENTOXIFYLLINE 400MG EXT REL TAB PO SCH ×2 (15:16→20:27)
[2019-04-23] MEDS: MIDODRINE HCL 10 MG TAB PO SCH ×2 (15:16→18:22)
[2019-04-23] MEDS ORDERED: ICU PROTOCOL FOR HYPERGLYCEMIA PRN (19:00)
[2019-04-23] MEDS ORDERED: OCTREOTIDE ACETATE 100 MCG/ML VIAL SQ SCH (19:30)
[2019-04-23] MEDS ORDERED: PHYTONADIONE 10 MG in SODIUM CHLORIDE 0.9% 50 ML IV ONE (19:30)
--- NOTE | 2019-04-23 19:54 | Procedure Note ---
Procedure Note Date of Service April 23, 2019 Procedure date: Noted above Procedure: Central venous access Pre-procedure indication: Need for vasoactive medication administration Post-procedure Diagnosis: same as above Prior to Procedure: Informed Consent: The risks, benefits, indications, potential complications, and alternatives were explained to the patient and informed consent obtained. Attending Staff: Radha Herbert DO Resident/APC: Austin BELTRAN Skin Prep: Chlorhexidine Anesthesia: 4 mL 1% lidocaine without epinephrine The identity of the patient was confirmed and a bedside time out was performed. Description of Procedure: After sterile prep and sterile drape utilizing standard sterile technique the superficial skin of the right internal jugular area was anesthetized. The target vessel was identified and entered with an 18- gauge needle. Dark venous blood return was noted. A guidewire was inserted through the needle and into the vessel. The needle was withdrawn and a skin floridalma was made. A tissue dilator was advanced via Seldinger technique and removed. A single lumen catheter was inserted via Seldinger technique and the guidewire removed. All ports jhoana and flushed easily. A Biopatch was placed, and the catheter was secured via commercial securement device. A sterile dressing was then applied. Complications: None Estimated blood loss: Trace Patient tolerated the procedure well. Procedure Date: Noted Above Procedure: Procedural Ultrasound Indication: Central venous access Attending: Radha Herbert DO Resident/Physician Body Stylist: Austin BELTRAN Artery visualized: Yes Vein visualized: Yes Compressible Vein: Yes Vein patent: Yes Guidewire or Short Catheter seen in vein prior to dilation: Yes Line confirmed in Vein with ultrasound: Yes Lung Sliding on side of attempt (if applicable): NA If no lung sliding or not obtained has CXR been ordered: Yes Impression: Successful central venous access placement Images obtained are saved for permanent record Coding CPT Codes Tubes, Drains, and Vasc Access - Tubes, Drains, and Vasc Access: Insertion Of Non-tunneled Catheter Age 5 Yrs> ([id number]) Tubes, Drains, and Vasc Access - Tubes, Drains, and Vasc Access: Ultrasound Guidance For Vascular ([id number])
[2019-04-23] MEDS: ALBUMIN 25% 50 ML IV SCH (19:56)
--- NOTE | 2019-04-23 19:57 | Critical Care Consultation ---
Date of Consultation April 23, 2019 Assessment & Plan (1) Sepsis: Reason Critically Ill: 48-year-old female with past medical history of alcoholic dependence, cirrhosis, and ascites who was admitted with concerns for sepsis and now transferred to ICU for hypotension requiring BP support with vasopressors. Neuro - [facility] ICU: Negative Cardiac - Hypotensionhepatorenal syndrome versus sepsis -Patient presented with hypotension, leukocytosis, fever with initial concerns for sepsis. Blood cultures and peritoneal fluid negative on preliminary's. Lactate also negative. Will check procalcitonin with a.m. labs but hepatorenal syndrome currently most likely cause. -Treated previously with milrinone and albumin without improvement. -Started on levo and vasopressin infusions with map goal greater than 65 -We will hold diuretics for now Respiratory - Patient maintaining sats on room air, will monitor CXR negative for acute process GI - Alcoholic cirrhosis/ascitesparacentesis yesterday with 5 L fluid removal, now reaccumulated -Monitor for withdrawal AWSS -Continue vitamin B1 B12 therapy -IV albumin -Daily hepatic panels and coags RENAL/LYTES - AKIcreatinine bumped from 0.90 to 1.28, likely prerenal from hypotension -We will continue IV fluid resuscitation and maintain maps greater than 65 -We will monitor with routine BMPs - Voiding without difficulty ENDO - ICU hyperglycemic protocol HEME - H&H stable, will monitor routine CBCs ID - Blood cultures and peritoneal fluid cultures negative on preliminary's, follow- up sensitivities Will continue vancomycin for cellulitis with history of MRSA and ceftriaxone for concerns of SBP LINES/IV ACCESS - Right IJ CVC, peripheral IVs DVT PROPHYLAXIS - SCDs, holding anticoagulation for elevated INR I have personally spent 50 minutes of critical care time in the direct management of this patient. This is a life/limb threatening event. This includes time spent evaluating patient, direct bedside care, chart review, placing orders, interpretation of diagnostic studies, discussion with consultants, patient, and family members, as well as other required patient management activities. This time is exclusive of all separately billable procedures, and teaching time and separate from and in addition to any other critical care service time. Thank you for allowing us to participate in the care of this patient. Please refer to my attending physician's documentation for any further recommendations. (2) Acute GI bleeding: (3) Alcoholic cirrhosis of liver: (4) Ascites due to alcoholic cirrhosis: (5) Anxiety and depression: (6) Hepatorenal syndrome: Supervising Physician Co-Signing Physician Notes I have personally evaluated and examined this patient. I agree with assessment and plan of [place] [facility]. Neuro at baseline, Will trend ammonia Borderline hypotensive, treating for hepatorenal syndrome No oxygen requirement Renal consult for acute kidney injury which is worsened today -Vasopressin infusion with Levophed and albumin 50 g today than 25 g for the next 3 days Per family medicine report patient was previously discussed for possible TIPS procedure and [facility] had declined. -Current indication would be refractory ascitesVersus decompensating cirrhosis given worsening synthetic function and hypoglycemia - Discontinued beta-tatianna - If the patient has worsening ascites, worsening synthetic function or rapidly elevating ammonia will refer out for TIPS procedure Renal function continues to decline: Consult nephrology Discontinuing vancomycin as patient is on Rocephin -Vancomycin was for lower extremity cellulitis, should have adequate coverage with Rocephin and kidneys at significant risk Hypoglycemia: Poor Prognosis of synthetic hepatic function I have personally spent 45 minutes of critical care time in the direct management of this patient. This is a life/limb threatening event. This includes time spent evaluating patient, direct bedside care, chart review, placing orders, interpretation of diagnostic studies, discussion with consultants, patient, and/or family members regarding treatment decisions, as well as other required patient management activities. This time is exclusive of all separately billable procedures, and teaching time and separate from and in addition to any other critical care service time. History of Present Illness Attending Physician: Dimitris Cano History of Present Illness Ms. Nunn is a 48-year-old female with past medical history of alcohol abuse, alcoholic cirrhosis, ascites who presented to the ED yesterday with abdominal pain and distention, along with fever and hypotension, and was admitted for concerns for sepsis and possible SBP. Paracentesis was performed and 5 L of fluid removed, cultures negative on preliminary blood cultures negative as well. Hypotension treated with albumin and milrinone without improvement and patient was transferred to ICU this afternoon for pressure support with vasopressors. Right IJ CVC was inserted on arrival and patient was started on levo and vasopressin infusions. Currently the patient remains hemodynamically stable with vasopressor support. She primarily complains of abdominal pain. She denies headache, dizziness or confusion, shortness of breath or labored breathing, palpitations, nausea or vomiting, or diarrhea. Patient will remain in ICU for now for close monitoring and blood pressure support. Allergies Allergy/AdvReac Type Severity Reaction Status Date / Time Bactrim Allergy Severe CHEST PAIN Unverified 12/26/16 19:35 sulfamethoxazole Allergy Severe CHEST PAIN Verified 04/22/19 13:31 trimethoprim Allergy Severe CHEST PAIN Verified 04/22/19 13:31 Home Medications Home Medications Medication Instructions Recorded Confirmed Type mecobalamin (vitamin B12) 1,000 1,000 mcg SL DAILY #30 tab 03/16/19 04/22/19 Rx mcg disintegrating tablet,sublingual thiamine HCl (vitamin B1) 100 mg 100 mg PO DAILY #30 tab 03/16/19 04/22/19 Rx tablet ciprofloxacin HCl 500 mg PO BID #60 tab 04/11/19 04/22/19 Rx albuterol sulfate 2.5 mg/3 mL 2.5 mg INH Q4H PRN #3 ml 04/12/19 04/22/19 Rx (0.083 %) solution for nebulization buspirone 5 mg tablet 5 mg PO DAILY #30 tab 04/12/19 04/22/19 Rx Patient History Medical History Neuropathy (Acute) Heartburn (Acute) Depression with anxiety (Acute) Alcohol dependence (Acute) Alcoholic cirrhosis of liver Herpes simplex Ascites due to alcoholic cirrhosis Anxiety and depression Diabetes Heart disease Acute anemia (Resolved) ETOH abuse (Resolved) Elevated LFTs (Resolved) Hypoalbuminemia (Resolved) Hypokalemia (Resolved) Hypomagnesemia (Resolved) Hypomagnesemia (Resolved) Hyponatremia (Resolved) Pneumonia (Resolved) Tobacco abuse (Resolved) Abdominal distension Abdominal pain Acute electrocardiogram changes C. difficile colitis Dehydration E. coli UTI Elevated WBC count Leukocytosis Leukocytosis Lumbar pain Nausea vomiting and diarrhea Prolonged INR Rash Surgical History H/O dilation and curettage History of abdominal paracentesis 3L in February 2019 Previous section Family History Sister Drug abuse Father Stroke Hypertension Dyslipidemia (high LDL; low HDL) Tobacco abuse Mother Depression Stroke Hypertension Other No significant family history Social History Preferred Language: Chadian Communication Ability: Effective [employer] Required: No Beliefs That Will Affect Care: None marital status: Current Living Situation: Spouse Current Living Situation Comment: , "his son, my dtr, her dtr and my son" current occupational status: unemployed Other Information That Helps Us Care for You: No Feels Safe at Home: Yes Safety Concerns: Feels Safe At This Time Smoking Status: Current every day smoker Tobacco Type: cigarettes Cigarettes Pe r Day: 10 Do You Dip or Chew Tobacco: No Second Hand Exposure: No Tobacco Cessation Education Requested by Patient: No Hx Alcohol Use: Yes Alcohol type: beer and hard liquor Hx Substance Use: No Dental Care, Regularly: No Seatbelt Use: always Review of Systems Review of Systems: All systems reviewed & are unremarkable except as noted in HPI & below Physical Exam Constitutional: + frail appearing and + underweight Eyes: PERRL, conjunctivae normal, anicteric sclerae Neck: trachea midline, no thyromegaly Respiratory: normal respiratory effort, lungs clear to auscultation Cardiovascular: Rate/Rhythm: regular rate and regular rhythm Heart Sounds: normal S1 and normal S2 Vessels: + JVD Extremities: + edema Gastrointestinal (Abdomen): Percussion/Palpation: + abdomen tender and + ascites Skin: no rashes, warm and dry Neurologic: PERRL, EOMI, accommodation nl, no face palsy, no dysarthria Psychiatric: A+Ox3, euthymic affect Results & Data Vital Signs (Past 12 Hours) Vital Signs Temp Pulse Pulse Resp BP BP BP 04/23/19 18:30 112 H 22 04/23/19 18:00 36.7 C 112 H 22 75/42 L 04/23/19 17:43 113 H 20 81/40 L 04/23/19 16:40 111 H 14 87/56 L 64/39 L 04/23/19 16:00 111 H 04/23/19 15:33 37.2 C 109 H 16 73/50 L 04/23/19 11:14 37 C 104 H 16 80/51 L Pulse Ox 04/23/19 18:30 96 04/23/19 18:00 95 04/23/19 17:43 93 04/23/19 16:40 94 04/23/19 16:00 04/23/19 15:33 96 04/23/19 11:14 94 PG Care Time/CCT Total # of Minutes Spent Total Time Spent with Patient: Total time spent is greater than 50% in coordination of care (as documented) at patient's floor/unit and/or counseling patient: Critical Care Time: Yes Total Critical Care Time: 50
--- NOTE | 2019-04-23 20:22 | XRay Report ---
SINGLE VIEW CHEST CLINICAL HISTORY: Central venous catheter placement. FINDINGS: An AP, portable, semierect chest radiograph is compared to study dated 04/22/2019. The exami nation is degraded by portable technique and patient rotation. A right internal jugular central bre ous catheter has been placed. The tip of the catheter projects over the right atrium. The cardiomedia stinal silhouette is unremarkable. There are low lung volumes and bibasilar atelectasis. No airspace consolidation or large pleural effusion is identified. No pneumothorax is seen. The skeletal structur es are osteopenic. The bony thorax is grossly intact. IMPRESSION: 1. A right internal jugular central venous catheter has been placed. The tip projects over the right atrium. 2. No pneumothorax is seen post procedure. 3. Low lung volumes with bibasilar atelectasis. Electronically signed by: Franc Flores M.D. 04/23/2019 8:20 PM
[2019-04-23] MEDS: PROPRANOLOL HCL 10 MG TAB PO SCH (20:31)
[2019-04-23] MEDS: NOREPINEPHRINE BIT INJ 8 MG in DEXTROSE 5% 500 ML IV SCH (21:17)
[2019-04-23] MEDS: VASOPRESSIN 20 UNITS in 0.9 % SODIUM CHLORIDE 100 ML IV SCH (21:18)
[2019-04-23] MEDS: ALBUMIN 25% 200 ML IV SCH (21:26)
[2019-04-23] MEDS ORDERED: OXYCODONE HCL SOLN 5 MG/5 ML UDC PO PRN (21:29)
[2019-04-23] MEDS: ONDANSETRON INJ 2 MG/ML 2 ML VIAL IV PRN ×2 (22:12→22:14)
[2019-04-24] MEDS ORDERED: MIDAZOLAM HCL 5 MG/ML 1 ML VIAL IV ONE (00:58)
[2019-04-24] MEDS ORDERED: ROCURONIUM BROMIDE 10 MG/ML 10 ML VIAL IV ONE (00:58)
[2019-04-24] MEDS ORDERED: fentaNYL citrate 100 MCG/2 ML CARP IV ONE (00:58)
[2019-04-24] MEDS ORDERED: ETOMIDATE 2 MG/ML 20 ML VIAL IV ONE (00:58)
[2019-04-24] MEDS ORDERED: SUCCINYLCHOLINE CHLORIDE 20 MG/ML 10 ML VIAL IV ONE (00:58)
[2019-04-24] MEDS ORDERED: fentaNYL citrate 100 MCG/2 ML VIAL IV STA ×3 (02:39→22:16)
[2019-04-24] MEDS ORDERED: ALBUMIN 25% 50 ML with FUROSEMIDE 40 MG IV STA (02:41)
[2019-04-24] MEDS ORDERED: fentaNYL citrate 100 MCG/2 ML VIAL ONE ×2 (02:42→10:48)
[2019-04-24 04:43] LABS: INR 2.8 (0.9-1.1); Prothrombin Time 26.8 Seconds (9.0-12.0)
[2019-04-24 05:04] LABS: BUN Creatinine Ratio 10.9 (10-20); Bilirubin Direct 0.4 mg/dl (0-0.2); Bilirubin,Total 0.9 mg/dl (0.2-1); Calcium 7.4 mg/dl (8.5-10.1); Creatinine Clr Calc Pharmacy 26.4 ml/min; Est GFR (African American) 44.4; Est GFR (Non-African American) 38.3; Phosphorus 3.9 mg/dl (2.5-4.9); Potassium 3.1 mmol/L (3.5-5.1); Total Protein 5.5 gm/dl (6.4-8.2)
[2019-04-24 05:08] LABS: Hematocrit (blood only) 26.6 % (37-47); Hemoglobin 9.1 g/dL (12.0-16.0); Mean Corpuscular Hgb Conc 34.2 g/dL (32-36); Mean Corpuscular Volume 88.4 fL (80-100); Mean Platelet Volume 10.3 fL (7.4-10.4); Platelet Count 280 K/uL (130-400); RDW Coefficient of Variation 17.8 % (11.5-14.5); Red Blood Count 3.01 M/uL (4.2-5.4); White Blood Count 24.47 K/uL (4.8-10.8)
[2019-04-24 05:20] LABS: Basophils # (auto) 0.01 K/uL (0-0.2); Dohle Bodies 1+; Echinocytes 1+; Eosinophils # (auto) 0.01 K/uL (0-0.5); Immature Granulocytes # (auto) 0.27 K/uL (0.00-0.02); Immature Granulocytes % (auto) 1.1 %; Lymphocytes # (auto) 1.19 K/uL (1.2-3.4); Lymphocytes % (auto) 4.9 %; Monocytes # (auto) 1.76 K/uL (0.11-0.59); Monocytes % (auto) 7.2 %; Neutrophils # (auto) 21.23 K/uL (1.4-6.5); Neutrophils % (auto) 86.8 %
[2019-04-24] MEDS ORDERED: DEXTROSE 50% 50 ML SYRINGE IV PRN (05:21)
[2019-04-24] MEDS: POTASSIUM CHLORIDE / WTR 10 MEQ/100 ML PLCT IV SCH ×8 (05:42→16:24)
[2019-04-24] MEDS: MAGNESIUM SULFATE / D5W 1 GM/100 ML BAG IV SCH ×9 (05:42→15:12)
[2019-04-24] MEDS: VASOPRESSIN 20 UNITS in 0.9 % SODIUM CHLORIDE 100 ML IV SCH ×5 (05:52→21:51)
[2019-04-24 06:59] LABS: Appearance Urine Clear (Clear); Bilirubin Urine Negative (Negative); Blood Urine Negative (Negative); Color Urine Yellow; Glucose Urine UA Negative (Negative); Ketones Urine Negative (Negative); Leukocyte Esterase Urine Negative (Negative); Nitrite Urine Negative (Negative); Protein Urine Negative (Negative); Specific Gravity Urine 1.014 (1.000-1.030); Urobilinogen Urine Negative (Negative)
[2019-04-24] MEDS ORDERED: MIDODRINE HCL 10 MG TAB PO SCH (08:00)
[2019-04-24] MEDS ORDERED: VANCOMYCIN HCL 750 MG in SODIUM CHLORIDE 0.9% 250 ML IV SCH (08:00)
[2019-04-24] MEDS: PENTOXIFYLLINE 400MG EXT REL TAB PO SCH ×3 (08:19→19:48)
[2019-04-24] MEDS: PROPRANOLOL HCL 10 MG TAB PO SCH (08:20)
[2019-04-24] MEDS ORDERED: PHYTONADIONE 10 MG in SODIUM CHLORIDE 0.9% 50 ML IV STA (08:24)
--- NOTE | 2019-04-24 08:26 | Family Medicine Progress Note ---
Date of Service April 24, 2019 Assessment & Plan (1) Admitted to intensive care unit: *Care per ICU team for now* (1)Sepsis: Judi Nunn is a 48-year-old female with a past medical history of alcohol abuse, alcoholic cirrhosis, and ascites who was admitted for sepsis with fever, abdominal pain, and concerns for SBP. Lactate in ED was negative, paracentesis in ED. Was febrile on presentation 38.2 C Initially treated for presumed SBP until negative culture with Rocephin 2gm qday; Treating LE cellulitis (hx of MRSA) with Vancomycin IV. Maddrey's DF score of 46; since >32 will start Pentoxifylline 400mg TID. Profoundly hypertensive since admission now on pressors per ICU for blood pressure support - Leukocytosis on admission of 20 with concerns for SBP and also with lower extremity cellulitis. - 04/23 AM WBC improved to 15.4. - 04/24 am WBC 24.47 - Blood cultures were drawn w/NGTD; Peritoneal fluid bacterial culture negative on gram stain and NGTD. Blood culture positive on caspofungin - [facility], consult order placed (2) SBP (spontaneous bacterial peritonitis): - Continue with treatment of presumed SBP with Rocephin 2gm qday - Peritoneal fluid bacterial culture negative on gram stain and NGTD. Fungal culture positive on caspofungin (3) Fever: Was febrile on presentation 38.2 C in ED and received Acetaminophen 650mg PO x1 (4) Ascites due to alcoholic cirrhosis: chronic abdominal ascites in the setting of alcoholic liver cirrhosis. She had Ultrasound-guided diagnostic and therapeutic paracentesis with aspiration of 5 L of ascites (04/22) after US Abd showed large volume simple ascites. Has had in the past and has had quick re-accumulation, will monitor clinically for reaccumulation. Unable to treat with Spironolactone and/or Lasix because of chronic hypotension - continue with Vit B1 and B12 (5) Bilateral lower leg cellulitis: as above, treatment with IV Vanc and wound care. -Monitor vancomycin level prior to every dose recommend holding dose until level post given acute actively worsening renal function (6) Hypotension: history of chronic baseline hypertension with systolic pressures in the low 100s - on pressors per ICU (7) Anxiety and depression: continue with Buspirone 5mg PO daily Supervising Physician Co-Signing Physician Notes Patient seen and examined independently of Dr. Rivera. Agree with history, physical exam findings, assessment and plan as documented with the following updates. 48-year-old female with a hx of alcohol abuse, alcoholic cirrhosis, and ascites who was admitted for sepsis with fever, abdominal pain, and concerns for SBP. 1. Sepsis secondary to SBP in the setting of EOTH cirrhosis - peritoneal fluid culture pending with repeat tap tomorrow. Continue ceftriaxone 2g qd. Start caspofungin. - pain control with dilaudid 0.5mg q6h PRN - continue Pentoxifylline 400mg TID 2. Lower extremity cellulitis, bilateral - previous hx of MRSA, treating with vanc 3. Hypotension and tachycardia 2/2 hepatorenal - on vasopressin and norepi, albumin - propranolol 5mg TID for heart rate control - renal consult. 4. ROBERTO ?hypoperfusion vs hepatorenal - Cr 0.9?1.28 without bump in BUN 5. Ascites 2/2 cirrhosis - s/p para, 5L off on 04/22 - does have some evidence of hepatic dysfunction (low albumin, elevated INR) 6. chronic anemia - ?baseline hgb 7. elevated INR - 2.2 yesterday 8. Recent GI bleed 2/2 PUD - continue PPI 9. anxiety, depression - continue home buspar 5mg daily Appreciate ICU care. Physical Exam Physical Exam: General: Cachectic, thin, sick appearing lady with protuberant abdomen HEENT: Normocephalic atraumatic Neck: Normal to visual inspection Cardiac: Regular rate and rhythm I did not appreciate murmurs rubs or gallops normal S1 normal S2 Respiratory: Clear to auscultation bilaterally GI: Vertebra and abdomen, positive fluid wave, distended, tender to palpation, bowel sounds present Neuro: Alert and oriented x4 Psych: Sad, depressed, cooperative Results & Data Vital Signs (Past 12 Hours) Vital Signs Temp Pulse Resp BP Pulse Ox 04/24/19 06:01 70 15 94 04/24/19 06:00 70 15 91/57 L 95 04/24/19 05:40 68 15 92/54 L 92 04/24/19 05:30 66 14 94 04/24/19 05:01 71 18 95 04/24/19 05:00 72 18 91/57 L 95 04/24/19 04:31 71 18 94 04/24/19 04:30 71 18 99/58 L 94 04/24/19 04:01 69 16 94 04/24/19 04:00 71 16 98/58 L 94 04/24/19 03:31 37.2 C 69 16 95 04/24/19 03:30 69 15 89/60 L 95 04/24/19 03:01 72 15 92 04/24/19 03:00 74 14 99/58 L 93 04/24/19 02:31 81 18 95 04/24/19 02:30 83 20 104/59 L 94 04/24/19 02:01 80 18 95 04/24/19 02:00 75 18 88/58 L 94 04/24/19 01:43 76 18 88/55 L 95 04/24/19 01:31 79 15 94 04/24/19 01:30 78 15 70/51 L 94 04/24/19 01:01 92 H 25 H 93 04/24/19 01:00 83 15 96/61 L 94 04/24/19 00:34 75 26 H 90/56 L 94 04/24/19 00:30 79 24 92 04/24/19 00:01 77 18 94 04/24/19 00:00 37.0 C 85 19 97/60 L 94 04/23/19 23:59 81 04/23/19 23:30 75 15 93 04/23/19 23:01 74 18 93 04/23/19 23:00 74 19 90/56 L 93 04/23/19 22:52 78 16 91 04/23/19 22:51 81 16 75/51 L 91 04/23/19 22:45 81 20 78/51 L 91 04/23/19 22:41 82 18 74/51 L 91 04/23/19 22:38 84 21 77/51 L 92 04/23/19 22:33 86 19 04/23/19 22:01 87 21 91 04/23/19 22:00 86 23 83/52 L 92 04/23/19 21:30 92 H 18 92 04/23/19 21:16 90 21 91/56 L 92 04/23/19 21:01 96 H 21 92 04/23/19 21:00 96 H 20 83/49 L 91 04/23/19 20:47 101 H 25 H 85/51 L 93 04/23/19 20:31 102 H 20 97 04/23/19 20:30 105 H 23 84/46 L 97 Laboratory Results 04/24/19 04/24/19 04/24/19 Range/Units 11:39 06:40 05:56 WBC (4.8-10.8) K/uL RBC (4.2-5.4) M/uL Hgb (12.0-16.0) g/dL Hct (37-47) % MCV (80-100) fL MCH (25-34) pg MCHC (32-36) g/dL RDW Std Deviation (36.4-46.3) fL RDW Coeff of Spenser (11.5-14.5) % Plt Count (130-400) K/uL MPV (7.4-10.4) fL Immature Gran % (Auto) % Neut % (Auto) % Lymph % (Auto) % [place] % (Auto) % Eos % (Auto) % Baso % (Auto) % Immature Gran # (Auto) (0.00-0.02) K/uL Neut # (Auto) (1.4-6.5) K/uL Lymph # (Auto) (1.2-3.4) K/uL [place] # (Auto) (0.11-0.59) K/uL Eos # (Auto) (0-0.5) K/uL Baso # (Auto) (0-0.2) K/uL Dohle Bodies Echinocytes PT (9.0-12.0) Seconds INR (0.9-1.1) Sodium (136-145) mmol/L Potassium (3.5-5.1) mmol/L Chloride (98-107) mmol/L Carbon Dioxide (21-32) mmol/L Anion Gap (3-11) BUN (7-18) mg/dl Creatinine (0.6-1.2) mg/dl Est Cr Clr Drug Dosing ml/min Est GFR ( Amer) Est GFR (Non-Af Amer) BUN/Creatinine Ratio (10-20) Glucose (70-99) mg/dl POC Glucose 119 H 142 H (70-99) Lactate (0.4-2.0) mmol/L Calcium (8.5-10.1) mg/dl Phosphorus (2.5-4.9) mg/dl Magnesium (1.8-2.4) mg/dl Total Bilirubin (0.2-1) mg/dl Direct Bilirubin (0-0.2) mg/dl AST (15-37) U/L ALT (12-78) U/L Alkaline Phosphatase (45-117) U/L Total Protein (6.4-8.2) gm/dl Albumin (3.4-5.0) gm/dl Procalcitonin (0-0.5) ng/ml Urine Color Yellow Urine Appearance Clear (Clear) Urine pH 5.0 (4.5-7.5) Ur Specific [place] 1.014 (1.000-1.030) Urine Protein Negative (Negative) Urine Glucose (UA) Negative (Negative) Urine Ketones Negative (Negative) Urine Blood Negative (Negative) Urine Nitrite Negative (Negative) Urine Bilirubin Negative (Negative) Urine Urobilinogen Negative (Negative) Ur Leukocyte Esterase Negative (Negative) Nasal Screen MRSA (PCR) (Negative) Random Vancomycin mcg/ml 04/24/19 04/24/19 04/24/19 Range/Units 04:24 04:24 04:24 WBC (4.8-10.8) K/uL RBC (4.2-5.4) M/uL Hgb (12.0-16.0) g/dL Hct (37-47) % MCV (80-100) fL MCH (25-34) pg MCHC (32-36) g/dL RDW Std Deviation (36.4-46.3) fL RDW Coeff of Spenser (11.5-14.5) % Plt Count (130-400) K/uL MPV (7.4-10.4) fL Immature Gran % (Auto) % Neut % (Auto) % Lymph % (Auto) % [place] % (Auto) % Eos % (Auto) % Baso % (Auto) % Immature Gran # (Auto) (0.00-0.02) K/uL Neut # (Auto) (1.4-6.5) K/uL Lymph # (Auto) (1.2-3.4) K/uL Weak[place] # (Auto) (0.11-0.59) K/uL Eos # (Auto) (0-0.5) K/uL Baso # (Auto) (0-0.2) K/uL Dohle Bodies Echinocytes PT (9.0-12.0) Seconds INR (0.9-1.1) Sodium 138 (136-145) mmol/L Potassium 3.1 L (3.5-5.1) mmol/L Chloride 109 H (98-107) mmol/L Carbon Dioxide 17 L (21-32) mmol/L Anion Gap 12.0 H (3-11) BUN 17 (7-18) mg/dl Creatinine 1.58 H D (0.6-1.2) mg/dl Est Cr Clr Drug Dosing 26.4 ml/min Est GFR ( Amer) 44.4 Est GFR (Non-Af Amer) 38.3 BUN/Creatinine Ratio 10.9 (10-20) Glucose 47 L* (70-99) mg/dl POC Glucose (70-99) Lactate 2.6 H* (0.4-2.0) mmol/L Calcium 7.4 L (8.5-10.1) mg/dl Phosphorus 3.9 (2.5-4.9) mg/dl Magnesium 1.0 L (1.8-2.4) mg/dl Total Bilirubin 0.9 (0.2-1) mg/dl Direct Bilirubin 0.4 H (0-0.2) mg/dl AST 15 (15-37) U/L ALT 11 L (12-78) U/L Alkaline Phosphatase 79 (45-117) U/L Total Protein 5.5 L (6.4-8.2) gm/dl Albumin 3.0 L (3.4-5.0) gm/dl Procalcitonin (0-0.5) ng/ml Urine Color Urine Appearance (Clear) Urine pH (4.5-7.5) Ur Specific [place] (1.000-1.030) Urine Protein (Negative) Urine Glucose (UA) (Negative) Urine Ketones (Negative) Urine Blood (Negative) Urine Nitrite (Negative) Urine Bilirubin (Negative) Urine Urobilinogen (Negative) Ur Leukocyte Esterase (Negative) Nasal Screen MRSA (PCR) (Negative) Random Vancomycin 19.9 mcg/ml 04/24/19 04/24/19 04/24/19 Range/Units 04:24 04:24 04:24 WBC 24.47 H (4.8-10.8) K/uL RBC 3.01 L (4.2-5.4) M/uL Hgb 9.1 L (12.0-16.0) g/dL Hct 26.6 L (37-47) % MCV 88.4 (80-100) fL MCH 30.2 (25-34) pg MCHC 34.2 (32-36) g/dL RDW Std Deviation 57.0 H (36.4-46.3) fL RDW Coeff of Spenser 17.8 H (11.5-14.5) % Plt Count 280 (130-400) K/uL MPV 10.3 (7.4-10.4) fL Immature Gran % (Auto) 1.1 % Neut % (Auto) 86.8 % Lymph % (Auto) 4.9 % Weakley % (Auto) 7.2 % Eos % (Auto) 0.0 % Baso % (Auto) 0.0 % Immature Gran # (Auto) 0.27 H (0.00-0.02) K/uL Neut # (Auto) 21.23 H (1.4-6.5) K/uL Lymph # (Auto) 1.19 L (1.2-3.4) K/uL Weak[place] # (Auto) 1.76 H (0.11-0.59) K/uL Eos # (Auto) 0.01 (0-0.5) K/uL Baso # (Auto) 0.01 (0-0.2) K/uL Dohle Bodies 1+ Echinocytes 1+ PT 26.8 H (9.0-12.0) Seconds INR 2.8 H (0.9-1.1) Sodium (136-145) mmol/L Potassium (3.5-5.1) mmol/L Chloride (98-107) mmol/L Carbon Dioxide (21-32) mmol/L Anion Gap (3-11) BUN (7-18) mg/dl Creatinine (0.6-1.2) mg/dl Est Cr Clr Drug Dosing ml/min Est GFR ( Amer) Est GFR (Non-Af Amer) BUN/Creatinine Ratio (10-20) Glucose (70-99) mg/dl POC Glucose (70-99) Lactate (0.4-2.0) mmol/L Calcium (8.5-10.1) mg/dl Phosphorus (2.5-4.9) mg/dl Magnesium (1.8-2.4) mg/dl Total Bilirubin (0.2-1) mg/dl Direct Bilirubin (0-0.2) mg/dl AST (15-37) U/L ALT (12-78) U/L Alkaline Phosphatase (45-117) U/L Total Protein (6.4-8.2) gm/dl Albumin (3.4-5.0) gm/dl Procalcitonin 17.15 H (0-0.5) ng/ml Urine Color Urine Appearance (Clear) Urine pH (4.5-7.5) Ur Specific [place] (1.000-1.030) Urine Protein (Negative) Urine Glucose (UA) (Negative) Urine Ketones (Negative) Urine Blood (Negative) Urine Nitrite (Negative) Urine Bilirubin (Negative) Urine Urobilinogen (Negative) Ur Leukocyte Esterase (Negative) Nasal Screen MRSA (PCR) (Negative) Random Vancomycin mcg/ml 04/24/19 04/23/19 Range/Units 00:12 19:11 WBC (4.8-10.8) K/uL RBC (4.2-5.4) M/uL Hgb (12.0-16.0) g/dL Hct (37-47) % MCV (80-100) fL MCH (25-34) pg MCHC (32-36) g/dL RDW Std Deviation (36.4-46.3) fL RDW Coeff of Spenser (11.5-14.5) % Plt Count (130-400) K/uL MPV (7.4-10.4) fL Immature Gran % (Auto) % Neut % (Auto) % Lymph % (Auto) % [place] % (Auto) % Eos % (Auto) % Baso % (Auto) % Immature Gran # (Auto) (0.00-0.02) K/uL Neut # (Auto) (1.4-6.5) K/uL Lymph # (Auto) (1.2-3.4) K/uL [place] # (Auto) (0.11-0.59) K/uL Eos # (Auto) (0-0.5) K/uL Baso # (Auto) (0-0.2) K/uL Dohle Bodies Echinocytes PT (9.0-12.0) Seconds INR (0.9-1.1) Sodium (136-145) mmol/L Potassium (3.5-5.1) mmol/L Chloride (98-107) mmol/L Carbon Dioxide (21-32) mmol/L Anion Gap (3-11) BUN (7-18) mg/dl Creatinine (0.6-1.2) mg/dl Est Cr Clr Drug Dosing ml/min Est GFR ( Amer) Est GFR (Non-Af Amer) BUN/Creatinine Ratio (10-20) Glucose (70-99) mg/dl POC Glucose (70-99) Lactate (0.4-2.0) mmol/L Calcium (8.5-10.1) mg/dl Phosphorus (2.5-4.9) mg/dl Magnesium (1.8-2.4) mg/dl Total Bilirubin (0.2-1) mg/dl Direct Bilirubin (0-0.2) mg/dl AST (15-37) U/L ALT (12-78) U/L Alkaline Phosphatase (45-117) U/L Total Protein (6.4-8.2) gm/dl Albumin (3.4-5.0) gm/dl Procalcitonin (0-0.5) ng/ml Urine Color Urine Appearance (Clear) Urine pH (4.5-7.5) Ur Specific [place] (1.000-1.030) Urine Protein (Negative) Urine Glucose (UA) (Negative) Urine Ketones (Negative) Urine Blood (Negative) Urine Nitrite (Negative) Urine Bilirubin (Negative) Urine Urobilinogen (Negative) Ur Leukocyte Esterase (Negative) Nasal Screen MRSA (PCR) Positive A (Negative) Random Vancomycin 27.0 mcg/ml Medications Administered Current Inpatient Medications Acetaminophen (Tylenol) 325 mg PO Q4H PRN PRN Reason: Fever Stop: 05/22/19 21:37 Albuterol (Ventolin 0.083% 2.5mg/3ml) 2.5 mg INH Q4H PRN PRN Reason: shortness of breath or wheezing Stop: 05/22/19 17:41 Buspirone HCl (Buspar) 5 mg PO DAILY CHEN Stop: 05/23/19 08:59 Last Admin: 07/15/19 08:20 Dose: 5 mg Documented by: Cyanocobalamin (Vitamin B-12) 1,000 mcg PO DAILY CHEN Stop: 05/23/19 08:59 Last Admin: 04/24/19 08:43 Dose: 1,000 mcg Documented by: Dextrose (Dextrose 50%) 25 - 50 ml IV UD PRN; Protocol PRN Reason: Hypoglycemia Protocol Stop: 05/24/19 05:20 Last Admin: 04/24/19 05:36 Dose: 25 ml Documented by: Fentanyl Citrate (Fentanyl Citrate) 25 mcg IV Q4H PRN PRN Reason: Pain Stop: 05/08/19 10:44 Last Admin: 04/24/19 10:57 Dose: 25 mcg Documented by: Ceftriaxone Sodium 2,000 mg/ (Dextrose) 70 mls @ 100 mls/hr IV DAILY CHEN; Protocol Stop: 05/03/19 08:59 Last Infusion: 04/24/19 09:30 Dose: Infused Documented by: Norepinephrine Bitartrate 8 mg (/ Dextrose) 508 mls @ 14.63 mls/hr IV .Q24H CHNE; Protocol Stop: 05/23/19 19:53 Last Titration: 04/24/19 15:10 Dose: 0.1 mcg/kg/min, 14.6 mls/hr Documented by: Vasopressin 20 units/ Sodium (Chloride) 101 mls @ 0 mls/hr IV .Q0M CHEN; Protocol Stop: 05/23/19 19:53 Last Titration: 04/24/19 15:10 Dose: 0.04 unit/min, 12.1 mls/hr Documented by: Albumin Human (Albumin 25%) 100 mls @ 100 mls/hr IV QAM CHEN Stop: 04/27/19 09:59 Caspofungin 35 mg/ Sodium (Chloride) 257 mls @ 260 mls/hr IV QAM CHEN; Protocol Stop: 05/25/19 08:59 Miscellaneous (Icu Protocol For Hyperglycemia) 1 ea N/A PRN PRN; Protocol PRN Reason: Hyperglycemia Protocol Stop: 04/25/19 18:59 Ondansetron HCl (Zofran) 4 mg IV Q4H PRN PRN Reason: Nausea Stop: 05/22/19 21:31 Last Admin: 04/23/19 22:14 Dose: 4 mg Documented by: Pentoxifylline (Trental) 400 mg PO TID [facility] Stop: 05/23/19 13:59 Last Admin: 04/24/19 13:42 Dose: 400 mg Documented by: Thiamine HCl (Vitamin B-1) 100 mg PO DAILY [facility] Stop: 05/23/19 08:59 Last Admin: 04/24/19 08:43 Dose: 100 mg Documented by: PG Care Time/CCT Total # of Minutes Spent Total Time Spent with Patient: Total time spent is greater than 50% in coordination of care (as documented) at patient's floor/unit and/or counseling patient: Resident Activity Tracking Resident Involvement: Resident Care Provided Care Provided: Adult Hospital Medicine
[2019-04-24] MEDS ORDERED: CASPOFUNGIN 70 MG in SODIUM CHLORIDE 0.9% 250 ML IV STA (08:30)
[2019-04-24] MEDS: THIAMINE HCL 100 MG TAB PO SCH (08:43)
[2019-04-24] MEDS: CYANOCOBALAMIN 500 MCG TABLET (VITAMIN B-12) PO SCH (08:43)
[2019-04-24] MEDS: cefTRIAXone SODIUM 2,000 MG in DEXTROSE 5% 50 ML IV SCH (08:45)
--- NOTE | 2019-04-24 09:00 | Critical Care Progress Note ---
Date of Service April 24, 2019 Assessment & Plan (1) Admitted to intensive care unit: Reason Critically Ill: 48-year-old female with PMHx of alcoholic dependence, cirrhosis, and refractory ascites with hypotension requiring pressor support. NEURO -CAM ICU: Negative -Fentanyl 25mcg q4h prn for pain CARDIAC Hypotension -likely due to hepatorenal syndrome. -continue levo and vasopressin, with MAP goal >65 -procal elevated, increased WBC, increased temp suggest septic shock as another possible cause of the hypotension. RESP -CXR negative for acute process -Pt currently doing well on RA -will continue to monitor GI Alcoholic cirrhosis/ascites s/p paracentesis with 5 L fluid removal, now reaccumulated. -Received lasix and albumin overnight for tense ascites. Improved. -will trend ammonia -IV Pepcid 20mg BID -Continue vitamin B1, B12 therapy, IV albumin -will continue to monitor LFTs and coags Concern for SBP -stopped propranolol -will continue to follow ascitic fluid labs, cultures -continue Rocephin, Caspofungin RENAL//LYTES - ROBERTO, likely prerenal, possibly also related to hepatorenal syndrome -pt with increasing cr -continue IV fluid resuscitation -consult placed to [facility]phrology -continue to monitor ENDO -ICU hyperglycemic protocol HEME -H&H stable -will monitor routine CBCs ID -Blood Cx currently negative, ascitic fluid cultures growing staph and yeast -Continue ceftriaxone, started on caspofungin for yeast growing in ascitic fluid. LINES/IV ACCESS - Right IJ CVC, peripheral IVs DVT PROPHYLAXIS - SCDs Supervising Physician Co-Signing Physician Notes Dr. Barnett was resident physician during care of patient. I separately evaluated patient for aguilera portions of the history and the exam. I was present during the critical portion of medical decision making, and I discussed the case with the resident. I generally agree with the findings and plan. Synthetic function continues to worsen. Continue current antibiotics and treatment for possible hepatorenal syndrome. Patient requiring vasoactive medication I have personally spent 35 minutes of critical care time in the direct management of this patient. This is a life/limb threatening event. This includes time spent evaluating patient, direct bedside care, chart review, placing orders, interpretation of diagnostic studies, discussion with consultants, patient, and/or family members regarding treatment decisions, as well as other required patient management activities. This time is exclusive of all separately billable procedures, and teaching time and separate from and in addition to any other critical care service time. Subjective Pt states she is not feeling well. States abdomen feels tight and she felt nauseous. Actively throwing up brown fluid. Review of Systems Review of Systems: All systems reviewed & are unremarkable except as noted in HPI & below Physical Exam Physical Exam: General: Alert, oriented, thin, cachectic. HEENT: NC/AT Chest: Nontender to palpation. CV: RRR, Normal s1, s2. Resp: Breath sounds clear bilaterally, no increased effort of breathing. Abdomen: Soft, tender diffusely, distended. No guarding. Extremities:lower extremities with mulitple red lesions. Results & Data Vital Signs (Past 12 Hours) Vital Signs Temp Pulse Resp BP Pulse Ox 04/24/19 06:01 70 15 94 04/24/19 06:00 70 15 91/57 L 95 04/24/19 05:40 68 15 92/54 L 92 04/24/19 05:30 66 14 94 04/24/19 05:01 71 18 95 04/24/19 05:00 72 18 91/57 L 95 04/24/19 04:31 71 18 94 04/24/19 04:30 71 18 99/58 L 94 04/24/19 04:01 69 16 94 04/24/19 04:00 71 16 98/58 L 94 04/24/19 03:31 37.2 C 69 16 95 04/24/19 03:30 69 15 89/60 L 95 04/24/19 03:01 72 15 92 04/24/19 03:00 74 14 99/58 L 93 04/24/19 02:31 81 18 95 04/24/19 02:30 83 20 104/59 L 94 04/24/19 02:01 80 18 95 04/24/19 02:00 75 18 88/58 L 94 04/24/19 01:43 76 18 88/55 L 95 04/24/19 01:31 79 15 94 04/24/19 01:30 78 15 70/51 L 94 04/24/19 01:01 92 H 25 H 93 04/24/19 01:00 83 15 96/61 L 94 04/24/19 00:34 75 26 H 90/56 L 94 04/24/19 00:30 79 24 92 04/24/19 00:01 77 18 94 04/24/19 00:00 37.0 C 85 19 97/60 L 94 04/23/19 23:59 81 04/23/19 23:30 75 15 93 04/23/19 23:01 74 18 93 04/23/19 23:00 74 19 90/56 L 93 04/23/19 22:52 78 16 91 04/23/19 22:51 81 16 75/51 L 91 04/23/19 22:45 81 20 78/51 L 91 04/23/19 22:41 82 18 74/51 L 91 04/23/19 22:38 84 21 77/51 L 92 04/23/19 22:33 86 19 04/23/19 22:01 87 21 91 04/23/19 22:00 86 23 83/52 L 92 04/23/19 21:30 92 H 18 92 04/23/19 21:16 90 21 91/56 L 92 04/23/19 21:01 96 H 21 92 Laboratory Results Laboratory Results - last 24 hr 04/23/19 04/24/19 04/24/19 19:11 00:12 04:24 WBC 24.47 H RBC 3.01 L Hgb 9.1 L Hct 26.6 L MCV 88.4 MCH 30.2 MCHC 34.2 RDW Std Deviation 57.0 H RDW Coeff of Spenser 17.8 H Plt Count 280 MPV 10.3 Immature Gran % (Auto) 1.1 Neut % (Auto) 86.8 Lymph % (Auto) 4.9 [place] % (Auto) 7.2 Eos % (Auto) 0.0 Baso % (Auto) 0.0 Immature Gran # (Auto) 0.27 H Neut # (Auto) 21.23 H Lymph # (Auto) 1.19 L [place] # (Auto) 1.76 H Eos # (Auto) 0.01 Baso # (Auto) 0.01 Dohle Bodies 1+ Echinocytes 1+ PT INR Sodium Potassium Chloride Carbon Dioxide Anion Gap BUN Creatinine Est Cr Clr Drug Dosing Est GFR ( Amer) Est GFR (Non-Af Amer) BUN/Creatinine Ratio Glucose POC Glucose Lactate Calcium Phosphorus Magnesium Total Bilirubin Direct Bilirubin AST ALT Alkaline Phosphatase Total Protein Albumin Procalcitonin Urine Color Urine Appearance Urine pH Ur Specific [place] Urine Protein Urine Glucose (UA) Urine Ketones Urine Blood Urine Nitrite Urine Bilirubin Urine Urobilinogen Ur Leukocyte Esterase Nasal Screen MRSA (PCR) Positive A Random Vancomycin 27.0 04/24/19 04/24/19 04/24/19 04:24 04:24 04:24 WBC RBC Hgb Hct MCV MCH MCHC RDW Std Deviation RDW Coeff of Spenser Plt Count MPV Immature Gran % (Auto) Neut % (Auto) Lymph % (Auto) [place] % (Auto) Eos % (Auto) Baso % (Auto) Immature Gran # (Auto) Neut # (Auto) Lymph # (Auto) [place] # (Auto) Eos # (Auto) Baso # (Auto) Dohle Bodies Echinocytes PT 26.8 H INR 2.8 H Sodium Potassium Chloride Carbon Dioxide Anion Gap BUN Creatinine Est Cr Clr Drug Dosing Est GFR ( Amer) Est GFR (Non-Af Amer) BUN/Creatinine Ratio Glucose POC Glucose Lactate Calcium Phosphorus Magnesium Total Bilirubin Direct Bilirubin AST ALT Alkaline Phosphatase Total Protein Albumin Procalcitonin 17.15 H Urine Color Urine Appearance Urine pH Ur Specific [place] Urine Protein Urine Glucose (UA) Urine Ketones Urine Blood Urine Nitrite Urine Bilirubin Urine Urobilinogen Ur Leukocyte Esterase Nasal Screen MRSA (PCR) Random Vancomycin 19.9 04/24/19 04/24/19 04/24/19 04:24 04:24 05:56 WBC RBC Hgb Hct MCV MCH MCHC RDW Std Deviation RDW Coeff of Spenser Plt Count MPV Immature Gran % (Auto) Neut % (Auto) Lymph % (Auto) [place] % (Auto) Eos % (Auto) Baso % (Auto) Immature Gran # (Auto) Neut # (Auto) Lymph # (Auto) [place] # (Auto) Eos # (Auto) Baso # (Auto) Dohle Bodies Echinocytes PT INR Sodium 138 Potassium 3.1 L Chloride 109 H Carbon Dioxide 17 L Anion Gap 12.0 H BUN 17 Creatinine 1.58 H D Est Cr Clr Drug Dosing 26.4 Est GFR ( Amer) 44.4 Est GFR (Non-Af Amer) 38.3 BUN/Creatinine Ratio 10.9 Glucose 47 L* POC Glucose 142 H Lactate 2.6 H* Calcium 7.4 L Phosphorus 3.9 Magnesium 1.0 L Total Bilirubin 0.9 Direct Bilirubin 0.4 H AST 15 ALT 11 L Alkaline Phosphatase 79 Total Protein 5.5 L Albumin 3.0 L Procalcitonin Urine Color Urine Appearance Urine pH Ur Specific [place] Urine Protein Urine Glucose (UA) Urine Ketones Urine Blood Urine Nitrite Urine Bilirubin Urine Urobilinogen Ur Leukocyte Esterase Nasal Screen MRSA (PCR) Random Vancomycin 04/24/19 04/24/19 04/24/19 06:40 11:39 15:47 WBC RBC Hgb Hct MCV MCH MCHC RDW Std Deviation RDW Coeff of Spenser Plt Count MPV Immature Gran % (Auto) Neut % (Auto) Lymph % (Auto) [place] % (Auto) Eos % (Auto) Baso % (Auto) Immature Gran # (Auto) Neut # (Auto) Lymph # (Auto) [place] # (Auto) Eos # (Auto) Baso # (Auto) Dohle Bodies Echinocytes PT INR Sodium Pending Potassium Pending Chloride Pending Carbon Dioxide Pending Anion Gap Pending BUN Pending Creatinine Pending Est Cr Clr Drug Dosing Pending Est GFR ( Amer) Pending Est GFR (Non-Af Amer) Pending BUN/Creatinine Ratio Pending Glucose Pending POC Glucose 119 H Lactate Calcium Pending Phosphorus Pending Magnesium Pending Total Bilirubin Direct Bilirubin AST ALT Alkaline Phosphatase Total Protein Albumin Procalcitonin Urine Color Yellow Urine Appearance Clear Urine pH 5.0 Ur Specific [place] 1.014 Urine Protein Negative Urine Glucose (UA) Negative Urine Ketones Negative Urine Blood Negative Urine Nitrite Negative Urine Bilirubin Negative Urine Urobilinogen Negative Ur Leukocyte Esterase Negative Nasal Screen MRSA (PCR) Random Vancomycin 04/24/19 15:53 WBC RBC Hgb Hct MCV MCH MCHC RDW Std Deviation RDW Coeff of Spenser Plt Count MPV Immature Gran % (Auto) Neut % (Auto) Lymph % (Auto) [place] % (Auto) Eos % (Auto) Baso % (Auto) Immature Gran # (Auto) Neut # (Auto) Lymph # (Auto) [place] # (Auto) Eos # (Auto) Baso # (Auto) Dohle Bodies Echinocytes PT INR Sodium Potassium Chloride Carbon Dioxide Anion Gap BUN Creatinine Est Cr Clr Drug Dosing Est GFR ( Amer) Est GFR (Non-Af Amer) BUN/Creatinine Ratio Glucose POC Glucose Lactate 3.7 H* Calcium Phosphorus Magnesium Total Bilirubin Direct Bilirubin AST ALT Alkaline Phosphatase Total Protein Albumin Procalcitonin Urine Color Urine Appearance Urine pH Ur Specific [place] Urine Protein Urine Glucose (UA) Urine Ketones Urine Blood Urine Nitrite Urine Bilirubin Urine Urobilinogen Ur Leukocyte Esterase Nasal Screen MRSA (PCR) Random Vancomycin Medications Administered Home Medications mecobalamin (vitamin B12) 1,000 mcg disintegrating tablet,sublingual 1,000 mcg SL DAILY #30 tab 03/16/19 [Rx Confirmed 04/22/19] thiamine HCl (vitamin B1) 100 mg tablet 100 mg PO DAILY #30 tab 03/16/19 [Rx Confirmed 04/22/19] ciprofloxacin HCl 500 mg PO BID #60 tab 04/11/19 [Rx Confirmed 04/22/19] albuterol sulfate 2.5 mg/3 mL (0.083 %) solution for nebulization 2.5 mg INH Q4H PRN #3 ml 04/12/19 [Rx Confirmed 04/22/19] buspirone 5 mg tablet 5 mg PO DAILY #30 tab 04/12/19 [Rx Confirmed 04/22/19] Active Medications Acetaminophen (Tylenol) 325 mg PO Q4H PRN PRN Reason: Fever Stop: 05/22/19 21:37 Albuterol (Ventolin 0.083% 2.5mg/3ml) 2.5 mg INH Q4H PRN PRN Reason: shortness of breath or wheezing Stop: 05/22/19 17:41 Buspirone HCl (Buspar) 5 mg PO DAILY CHEN Stop: 05/23/19 08:59 Last Admin: 04/24/19 08:20 Dose: 5 mg Documented by: Cyanocobalamin (Vitamin B-12) 1,000 mcg PO DAILY CHEN Stop: 05/23/19 08:59 Last Admin: 04/24/19 08:43 Dose: 1,000 mcg Documented by: Dextrose (Dextrose 50%) 25 - 50 ml IV UD PRN; Protocol PRN Reason: Hypoglycemia Protocol Stop: 05/24/19 05:20 Last Admin: 04/24/19 05:36 Dose: 25 ml Documented by: Fentanyl Citrate (Fentanyl Citrate) 25 mcg IV Q4H PRN PRN Reason: Pain Stop: 05/08/19 10:44 Last Admin: 04/24/19 10:57 Dose: 25 mcg Documented by: Ceftriaxone Sodium 2,000 mg/ (Dextrose) 70 mls @ 100 mls/hr IV DAILY CHEN; Protocol Stop: 05/03/19 08:59 Last Infusion: 04/24/19 09:30 Dose: Infused Documented by: Norepinephrine Bitartrate 8 mg (/ Dextrose) 508 mls @ 14.63 mls/hr IV .Q24H [facility]; Protocol Stop: 05/23/19 19:53 Last Titration: 04/24/19 15:10 Dose: 0.1 mcg/kg/min, 14.6 mls/hr Documented by: Vasopressin 20 units/ Sodium (Chloride) 101 mls @ 12.12 mls/hr IV .Q8H20M [facility]; Protocol Stop: 05/23/19 19:53 Last Admin: 04/24/19 16:19 Dose: Not Given Documented by: Albumin Human (Albumin 25%) 100 mls @ 100 mls/hr IV QAM [facility] Stop: 04/27/19 09:59 Caspofungin 35 mg/ Sodium (Chloride) 257 mls @ 260 mls/hr IV QAM [facility]; Protocol Stop: 05/25/19 08:59 Famotidine 20 mg/ Syringe 5 mls @ 2.5 mls/min IV BID [facility] Stop: 05/24/19 20:59 Miscellaneous (Icu Protocol For Hyperglycemia) 1 ea N/A PRN PRN; Protocol PRN Reason: Hyperglycemia Protocol Stop: 04/25/19 18:59 Ondansetron HCl (Zofran) 4 mg IV Q4H PRN PRN Reason: Nausea Stop: 05/22/19 21:31 Last Admin: 04/23/19 22:14 Dose: 4 mg Documented by: Pentoxifylline (Trental) 400 mg PO TID [facility] Stop: 05/23/19 13:59 Last Admin: 04/24/19 13:42 Dose: 400 mg Documented by: Thiamine HCl (Vitamin B-1) 100 mg PO DAILY [facility] Stop: 05/23/19 08:59 Last Admin: 04/24/19 08:43 Dose: 100 mg Documented by: PG Care Time/CCT Critical Care Time: Yes Total Critical Care Time: 35
[2019-04-24] MEDS ORDERED: POTASSIUM CHLORIDE / WTR 20 MEQ/100 ML PLCT IV STA (09:16)
--- NOTE | 2019-04-24 09:17 | Nephrology Consultation ---
Date of Consultation April 24, 2019 Assessment & Plan (1) Acute renal failure: baseline creatinine 0.9; was at baseline on presentation on 04/22; currently w/ uptrend in creatinine to 1.6 today; nonoliguric, though I/0 have not been fully charted until recently. in a liver patient, creatinine even of 0.9 is abnormal and 1.6 represents severe dysfunction. she has a bland urine sediment; currently receiving empiric tx for hepatorenal syndrome, w/ which I agree. Also being treated for prerenal process w/ aggressive fluid resuscitation and pressor support. She has elevated lactate, low K, worsening bicarb, increasing chloride >> hyperchloremic metabolic acidosis may improve w/ stopping NS (done this am); also w/ worsening diarrhea likely contributing to nagma in addition to presumptive anion gap acidosis from elevated lactate/sepsis -recheck BMP, mag and lactate and phos ordered for 1600 today; may need bicarbonate supplementation -low threshold for ABG to properly assess acid base status if further clinical worsening -monitor vancomycin level prior to every dose and recommend holding dose until level posts given actively worsening renal function -f/u pending cultures -agree for now w/ albumin and 2 pressors to resuscitate -no current indication for dialysis; should the need arise, she may not be a candidate Present on Admission?: No (2) Electrolyte disturbance: acid base issues as above; also w/ hyperchloremia, hypomagnesemia, hypokalemia. pt is taking po currently but w/ esophageal ulcer and already 3 bm today so use IV repletion today -magnesium sulfate 4 gm ordered IV -K riders 20 mEq x 3 doses ordered IV Present on Admission?: No (3) Hypotension: suspect d/t sepsis; currently pressor dependent; cont same along w/ albumin Present on Admission?: Yes (4) SBP (spontaneous bacterial peritonitis): peritoneal fluid culture growing fungus - on caspofungin; also receiving ceftriaxone, vanco for cellulitis/broad sbp coverage Present on Admission?: Yes (5) Alcoholic cirrhosis of liver: per primary service and GI/ critical care; multiple complications of EtOH cirrhosis complicating her care; actively using EtOH Present on Admission?: Yes History of Present Illness Reason for Consultation: acute renal failure, concern for hepatorenal syndrome Requesting Physician: Dr Herbert Attending Physician: Chele Guy, DO History of Present Illness 48 y/o F whom I'm asked to see for acute renal failure was admitted to ICU yesterday to initiate pressor support in the setting of sepsis presumed from SBP. PMH includes alcoholic liver cirrhosis w/ paracentesis dependent ascites, active EtOH and tobacco abuse, DM apparently diet managed based on OP meds, depression. She has had multiple admissions here, most recently mid March for C diff colitis and late March for acute upper GI bleeding with EGD showing cratered esophageal ulcer, 3 nonbleeding gastric ulcer, and prominent vessel needing epinephrine injection. She came to the ER on w/ F 38.3, systolic BP in 70s (usually 90-110s), WBC 21 K w/ c/o abd pain/ distension as well as blistered BL lower extremities. She had a 5L paracentesis 04/22 w/ WBC count 3K and cx prelim + for fungus. She is receiving caspofungin as of this am as well as ceftriaxone and vancomycin IV. She was moved to the icu yesterday d/t need for pressor support for her hypotension. her baseline creatinine is 0.9; was at baseline on presentation. Creatinine has steadily trended upward to 1.3 yesterday and 1.6 today. I and 0 are not completely documented > pt has had ample fluid resuscitation and is 6L positive potentially. She is not oliguric. Does not take diuretics as OP. Allergies Allergy/AdvReac Type Severity Reaction Status Date / Time Bactrim Allergy Severe CHEST PAIN Unverified 12/26/16 19:35 sulfamethoxazole Allergy Severe CHEST PAIN Verified 04/22/19 13:31 trimethoprim Allergy Severe CHEST PAIN Verified 04/22/19 13:31 Home Medications Home Medications Medication Instructions Recorded Confirmed Type mecobalamin (vitamin B12) 1,000 1,000 mcg SL DAILY #30 tab 03/16/19 04/22/19 Rx mcg disintegrating tablet,sublingual thiamine HCl (vitamin B1) 100 mg 100 mg PO DAILY #30 tab 03/16/19 04/22/19 Rx tablet ciprofloxacin HCl 500 mg PO BID #60 tab 04/11/19 04/22/19 Rx albuterol sulfate 2.5 mg/3 mL 2.5 mg INH Q4H PRN #3 ml 04/12/19 04/22/19 Rx (0.083 %) solution for nebulization buspirone 5 mg tablet 5 mg PO DAILY #30 tab 04/12/19 04/22/19 Rx Patient History Medical History Neuropathy (Acute) Heartburn (Acute) Depression with anxiety (Acute) Alcohol dependence (Acute) Alcoholic cirrhosis of liver Herpes simplex Ascites due to alcoholic cirrhosis Anxiety and depression Diabetes Heart disease Acute anemia (Resolved) ETOH abuse (Resolved) Elevated LFTs (Resolved) Hypoalbuminemia (Resolved) Hypokalemia (Resolved) Hypomagnesemia (Resolved) Hypomagnesemia (Resolved) Hyponatremia (Resolved) Pneumonia (Resolved) Tobacco abuse (Resolved) Abdominal distension Abdominal pain Acute electrocardiogram changes C. difficile colitis Dehydration E. coli UTI Elevated WBC count Leukocytosis Leukocytosis Lumbar pain Nausea vomiting and diarrhea Prolonged INR Rash Surgical History H/O dilation and curettage History of abdominal paracentesis 3L in February 2019 Previous section Family History Sister Drug abuse Father Stroke Hypertension Dyslipidemia (high LDL; low HDL) Tobacco abuse Mother Depression Stroke Hypertension Other No significant family history Social History Preferred Language: Bhutanese Communication Ability: Effective Measurement Technician Required: No Beliefs That Will Affect Care: None marital status: Current Living Situation: Spouse Current Living Situation Comment: , "his son, my dtr, her dtr and my son" current occupational status: unemployed Other Information That Helps Us Care for You: No Feels Safe at Home: Yes Safety Concerns: Feels Safe At This Time Smoking Status: Current every day smoker Tobacco Type: cigarettes Cigarettes Per Day: 10 Do You Dip or Chew Tobacco: No Second Hand Exposure: No Tobacco Cessation Education Requested by Patient: No Hx Alcohol Use: Yes Alcohol type: beer and hard liquor Hx Substance Use: No Dental Care, Regularly: No Seatbelt Use: always Review of Systems Review of Systems: All systems reviewed & are unremarkable except as noted in HPI & below Gastrointestinal: + abdominal pain, + nausea, + vomiting and + diarrhea/loose stools Musculoskeletal: + muscle weakness Psychiatric: + depression and + anxiety Physical Exam Constitutional: well developed and + cachectic mild distress from N; on RA Eyes: + anicteric sclerae and EOM intact bilaterally ENMT: Ears: no external ear abnormality Nose: no external nose abnormality Mouth: + dry oral mucous membranes Neck: no nuchal rigidity Respiratory: normal respiratory effort Auscultation: lungs clear to auscultation bilaterally and + diminished lung sounds Cardiovascular: Rate/Rhythm: regular rate and regular rhythm Extremities: + edema (1-2 + BL ankles/pedal; none on hips) Gastrointestinal (Abdomen): Inspection/Auscultation: + abdomen distended (marked) and normal bowel sounds Percussion/Palpation: + abdomen tender (diffusely melody epigastric and RUQ) and abdomen soft Musculoskeletal: Extremities: strength 5/5 throughout Skin: no rashes, warm and dry + lesion (BL ant shins w/ quarter sized scabs) Neurologic: valentin, fluent speech Psychiatric: Orientation: alert and oriented x 3 Eye Contact: + fair eye contact Genitourinary: gentile w/ ample urine Results & Data Vital Signs (Past 12 Hours) Vital Signs Temp Pulse Resp BP Pulse Ox 04/24/19 06:01 70 15 94 04/24/19 06:00 70 15 91/57 L 95 04/24/19 05:40 68 15 92/54 L 92 04/24/19 05:30 66 14 94 04/24/19 05:01 71 18 95 04/24/19 05:00 72 18 91/57 L 95 04/24/19 04:31 71 18 94 04/24/19 04:30 71 18 99/58 L 94 04/24/19 04:01 69 16 94 04/24/19 04:00 71 16 98/58 L 94 04/24/19 03:31 37.2 C 69 16 95 04/24/19 03:30 69 15 89/60 L 95 04/24/19 03:01 72 15 92 04/24/19 03:00 74 14 99/58 L 93 04/24/19 02:31 81 18 95 04/24/19 02:30 83 20 104/59 L 94 04/24/19 02:01 80 18 95 04/24/19 02:00 75 18 88/58 L 94 04/24/19 01:43 76 18 88/55 L 95 04/24/19 01:31 79 15 94 04/24/19 01:30 78 15 70/51 L 94 04/24/19 01:01 92 H 25 H 93 04/24/19 01:00 83 15 96/61 L 94 04/24/19 00:34 75 26 H 90/56 L 94 04/24/19 00:30 79 24 92 04/24/19 00:01 77 18 94 04/24/19 00:00 37.0 C 85 19 97/60 L 94 04/23/19 23:59 81 04/23/19 23:30 75 15 93 04/23/19 23:01 74 18 93 04/23/19 23:00 74 19 90/56 L 93 04/23/19 22:52 78 16 91 04/23/19 22:51 81 16 75/51 L 91 04/23/19 22:45 81 20 78/51 L 91 04/23/19 22:41 82 18 74/51 L 91 04/23/19 22:38 84 21 77/51 L 92 04/23/19 22:33 86 19 04/23/19 22:01 87 21 91 04/23/19 22:00 86 23 83/52 L 92 04/23/19 21:30 92 H 18 92 04/23/19 21:16 90 21 91/56 L 92 04/23/19 21:01 96 H 21 92 04/23/19 21:00 96 H 20 83/49 L 91 04/23/19 20:47 101 H 25 H 85/51 L 93 Laboratory Results Abnormal lab results 04/24/19 04/24/19 04/24/19 Range/Units 00:12 04:24 04:24 WBC 24.47 H (4.8-10.8) K/uL RBC 3.01 L (4.2-5.4) M/uL Hgb 9.1 L (12.0-16.0) g/dL Hct 26.6 L (37-47) % RDW Std Deviation 57.0 H (36.4-46.3) fL RDW Coeff of Spenser 17.8 H (11.5-14.5) % Immature Gran # (Auto) 0.27 H (0.00-0.02) K/uL Neut # (Auto) 21.23 H (1.4-6.5) K/uL Lymph # (Auto) 1.19 L (1.2-3.4) K/uL [place] # (Auto) 1.76 H (0.11-0.59) K/uL PT 26.8 H (9.0-12.0) Seconds INR 2.8 H (0.9-1.1) Potassium (3.5-5.1) mmol/L Chloride (98-107) mmol/L Carbon Dioxide (21-32) mmol/L Anion Gap (3-11) Creatinine (0.6-1.2) mg/dl Glucose (70-99) mg/dl POC Glucose (70-99) Lactate (0.4-2.0) mmol/L Calcium (8.5-10.1) mg/dl Magnesium (1.8-2.4) mg/dl Direct Bilirubin (0-0.2) mg/dl ALT (12-78) U/L Total Protein (6.4-8.2) gm/dl Albumin (3.4-5.0) gm/dl Procalcitonin (0-0.5) ng/ml Nasal Screen MRSA (PCR) Positive A (Negative) 04/24/19 04/24/19 04/24/19 Range/Units 04:24 04:24 04:24 WBC (4.8-10.8) K/uL RBC (4.2-5.4) M/uL Hgb (12.0-16.0) g/dL Hct (37-47) % RDW Std Deviation (36.4-46.3) fL RDW Coeff of Spenser (11.5-14.5) % Immature Gran # (Auto) (0.00-0.02) K/uL Neut # (Auto) (1.4-6.5) K/uL Lymph # (Auto) (1.2-3.4) K/uL [place] # (Auto) (0.11-0.59) K/uL PT (9.0-12.0) Seconds INR (0.9-1.1) Potassium 3.1 L (3.5-5.1) mmol/L Chloride 109 H (98-107) mmol/L Carbon Dioxide 17 L (21-32) mmol/L Anion Gap 12.0 H (3-11) Creatinine 1.58 H D (0.6-1.2) mg/dl Glucose 47 L* (70-99) mg/dl POC Glucose (70-99) Lactate 2.6 H* (0.4-2.0) mmol/L Calcium 7.4 L (8.5-10.1) mg/dl Magnesium 1.0 L (1.8-2.4) mg/dl Direct Bilirubin 0.4 H (0-0.2) mg/dl ALT 11 L (12-78) U/L Total Protein 5.5 L (6.4-8.2) gm/dl Albumin 3.0 L (3.4-5.0) gm/dl Procalcitonin 17.15 H (0-0.5) ng/ml Nasal Screen MRSA (PCR) (Negative) 04/24/19 Range/Units 05:56 WBC (4.8-10.8) K/uL RBC (4.2-5.4) M/uL Hgb (12.0-16.0) g/dL Hct (37-47) % RDW Std Deviation (36.4-46.3) fL RDW Coeff of Spenser (11.5-14.5) % Immature Gran # (Auto) (0.00-0.02) K/uL Neut # (Auto) (1.4-6.5) K/uL Lymph # (Auto) (1.2-3.4) K/uL [place] # (Auto) (0.11-0.59) K/uL PT (9.0-12.0) Seconds INR (0.9-1.1) Potassium (3.5-5.1) mmol/L Chloride (98-107) mmol/L Carbon Dioxide (21-32) mmol/L Anion Gap (3-11) Creatinine (0.6-1.2) mg/dl Glucose (70-99) mg/dl POC Glucose 142 H (70-99) Lactate (0.4-2.0) mmol/L Calcium (8.5-10.1) mg/dl Magnesium (1.8-2.4) mg/dl Direct Bilirubin (0-0.2) mg/dl ALT (12-78) U/L Total Protein (6.4-8.2) gm/dl Albumin (3.4-5.0) gm/dl Procalcitonin (0-0.5) ng/ml Nasal Screen MRSA (PCR) (Negative) UACM from today reviewed as were blood and other cultures and peritoneal fluid specimen Diagnostic Findings cxr 1. A right internal jugular central venous catheter has been placed. The tip projects over the right atrium. 2. No pneumothorax is seen post procedure. 3. Low lung volumes with bibasilar atelectasis. portal vein u/s 04/10/19 CLINICAL HISTORY: new ascites, rule out portal vein thrombosis COMPARISON STUDY: CT of the abdomen and pelvis February 19, 2019. FINDINGS: The liver is cirrhotic. Increased hepatic echogenicity suggests fatty infiltration. No hepatic lesions are identified although sensitivity is diminished on this exam. Moderate abdominal ascites is noted. The major hepatic vessels are patent with appropriately directed flow. No evidence of portal venous thrombosis is noted. IMPRESSION: 1. Patent major hepatic vessels with appropriately directed flow. 2. Cirrhosis with moderate ascites. EGD late March [address] abd/pelvis non con 03/20/19 Lung bases: The heart is normal in size and without pericardial effusion. The lung bases are clear noting bibasilar scarring/atelectasis. Liver: The unenhanced liver is cirrhotic in morphology and heterogeneous in attenuation. There is nodularity of the service contour and hypertrophy of the left lobe. There is no intrahepatic biliary ductal dilatation. Gallbladder: There is calcification of the gallbladder wall. Spleen: Normal in size and attenuation. Pancreas: Unenhanced pancreas is moderately atrophic and grossly unremarkable. Adrenal glands: Unremarkable. Kidneys: The unenhanced kidneys demonstrate cortical atrophy and are without hydronephrosis. There are no renal calculi identified. There is no evidence of contour deforming renal mass lesion. Abdominal vasculature: The abdominal aorta is normal in course and caliber noting moderate atherosclerotic calcification. Bowel: There is no bowel obstruction. The appendix is not visualized. Peritoneum: There is no intraperitoneal free air. There is a large volume of abdominopelvic ascites. Lymphadenopathy: None. Pelvic viscera: The bladder, uterus, and adnexa are normal as imaged. Skeletal structures: No lytic or blastic lesions are seen. IMPRESSION: 1. Significantly suboptimal examination without oral and IV contrast. 2. Heterogeneous and cirrhotic liver. 3. The abdomen is distended with a large volume of abdominopelvic ascites.Lung bases: The heart is normal in size and without pericardial effusion. The lung bases are clear noting bibasilar scarring/atelectasis. (1) Acute renal failure Acute renal failure type: unspecified Qualified Code(s): N17.9 - Acute kidney failure, unspecified (2) Alcoholic cirrhosis of liver Ascites presence: with ascites Qualified Code(s): K70.31 - Alcoholic cirrhosis of liver with ascites (3) Hypotension Hypotension type: other hypotension type Qualified Code(s): I95.89 - Other hypotension
--- NOTE | 2019-04-24 09:36 | Pharmacy Report ---
Pharmacy Abx Dose Short Note - Date of Service April 24, 2019 - Assessment & Plan Assessment * 48 year old F in ICU with SBP, cellulitis * Cultures * 04/22 Abdomen culture with yeast * Antimicrobials * Ceftriaxone day 3 * Vancomycin day 3 * Caspofungin day 1 * Renal * SCr continues to worsen. Concern for hepatorenal syndrome. Vancomycin * Goal trough 15-20 mcg/mL * Random level of 19.9 mcg/mL this AM is therapeutic. The level trended down from 27 mcg/mL 9.25 hours previously, for estimated t1/2 currently of 21 hours although this is likely to change with ongoing change in renal function * Will give one-time vancomycin dose now 2nd therapeutic level and then continue to dose via level * Next random level scheduled with other lab draws later today at 1600 - please note that this is *not* a trough level (rather is a very early 8 hour level) and therefore would anticipate that it will be significantly elevated. Chose to obtain early level to enable 2 consecutive random levels at least 8 hours apart to continue to evaluate patient-specific PK in critical illness with ongoing changes anticipated in renal function. Time of next random level to be determined based on the amount of elevation in the level at 1600 Plan * Vancomycin 750 mg IV x1 now * - canceled as decision made to stop vancomycin on ICU rounds Pharmacy will continue to follow and will adjust dose/frequency as necessary. Thank you.
--- NOTE | 2019-04-24 09:41 | Gastroenterology Progress Note ---
Date of Service April 24, 2019 Assessment & Plan (1) SBP (spontaneous bacterial peritonitis): 48 year old female with ETOH cirrhosis, SBP on IV ceftriaxone transferred to the ICU 04/23/19 for persistent hypotension now on pressor support w/ worsening creatinine. She does have recent history of GIB secondary to gastric and esophageal ulcers and reports intermittent black stools prior to admission but no black/bloody stools since arrival. Continue IV Ceftriaxone 2 gm Culture prelim is fungal IV Albumin (1gm/kg) today Repeat Tap tomorrow to check for response to ABX. Please send cell count, albumin, Protein and glucose. Hold NSBB and diuretics for now. Continue PPI due to recent PUD. Will need Cipro daily for SBP prophylaxis Trend H&H Monitor and document GI output Transfuse PRN Less than 2G tylenol Strict ETOH cessation Low NA diet. Appreciate Nephrology input (2) Cirrhosis of liver: Supervising Physician Co-Signing Physician Notes I have personally seen and examined the patient with RUBY Alvarez. Her note reflects my exam and findings. I agree with her impression and plan. Debbie found in abdominal fluid, coverage changed. Objective clinical data concerning for worsening hepatic dysfunction. Given degree of liver dysfunction, active infection and active ETOH abuse, the patient has poor prognosis. Follow renal function closely because of concerns for impending hepatorenal syndrome. Consider transfer to a center with a hepatology/liver program with IR capabilities if further signs of liver dysfunction. Julio Oviedo M.D. Subjective Pt was seen and evaluated, chart reviewed. Transferred to the ICU for hypotension, need for pressor support. Notes this AM she feels ok. Her abd is distended again. She notes this was not as bad after paracentesis but fluid has returned. FEels pressure but no pain. No nausea, vomiting. She has not had a BM today but notes intermittent dark stools. She does have recent history of esopha geal and gastric ulcers. Denies lightheadedness, dizziness. Has not had much of her breakfast this AM. Not hungry. She is awake, alert and oriented to person, place, time. Answering questions appropriately. Review of Systems Constitutional: no fever and no chills Respiratory: no cough, no dyspnea and no pain on inspiration Cardiovascular: no chest pain, no radiating jaw, neck or arm pain, no dyspnea on exertion and no palpitations Gastrointestinal: no abdominal pain, no belching, no vomiting, no coffee ground emesis, no hematemesis, no constipation, no blood in stools and no melena Physical Exam Constitutional: + ill appearing and + thin; + not well developed, + not well nourished and no acute distress Neck: trachea midline Respiratory: normal respiratory effort and + respiratory distress Cardiovascular: Rate/Rhythm: regular rate and regular rhythm Gastrointestinal (Abdomen): Inspection/Auscultation: + abdomen distended and normal bowel sounds Percussion/Palpation: + abdomen tender, abdomen soft and + ascites; no guarding and abdomen not rigid Skin: no rashes, warm and dry Psychiatric: A+Ox3, euthymic affect Results & Data Vital Signs (Past 12 Hours) Vital Signs Temp Pulse Resp BP Pulse Ox 04/24/19 06:01 70 15 94 04/24/19 06:00 70 15 91/57 L 95 04/24/19 05:40 68 15 92/54 L 92 04/24/19 05:30 66 14 94 04/24/19 05:01 71 18 95 04/24/19 05:00 72 18 91/57 L 95 04/24/19 04:31 71 18 94 04/24/19 04:30 71 18 99/58 L 94 04/24/19 04:01 69 16 94 04/24/19 04:00 71 16 98/58 L 94 04/24/19 03:31 37.2 C 69 16 95 04/24/19 03:30 69 15 89/60 L 95 04/24/19 03:01 72 15 92 04/24/19 03:00 74 14 99/58 L 93 04/24/19 02:31 81 18 95 04/24/19 02:30 83 20 104/59 L 94 04/24/19 02:01 80 18 95 04/24/19 02:00 75 18 88/58 L 94 04/24/19 01:43 76 18 88/55 L 95 04/24/19 01:31 79 15 94 04/24/19 01:30 78 15 70/51 L 94 04/24/19 01:01 92 H 25 H 93 04/24/19 01:00 83 15 96/61 L 94 04/24/19 00:34 75 26 H 90/56 L 94 07/15/19 00:30 79 24 92 04/24/19 00:01 77 18 94 04/24/19 00:00 37.0 C 85 19 97/60 L 94 04/23/19 23:59 81 04/23/19 23:30 75 15 93 04/23/19 23:01 74 18 93 04/23/19 23:00 74 19 90/56 L 93 04/23/19 22:52 78 16 91 04/23/19 22:51 81 16 75/51 L 91 04/23/19 22:45 81 20 78/51 L 91 04/23/19 22:41 82 18 74/51 L 91 04/23/19 22:38 84 21 77/51 L 92 04/23/19 22:33 86 19 04/23/19 22:01 87 21 91 04/23/19 22:00 86 23 83/52 L 92 Laboratory Results 04/24/19 04/24/19 04/24/19 Range/Units 06:40 05:56 04:24 WBC (4.8-10.8) K/uL RBC (4.2-5.4) M/uL Hgb (12.0-16.0) g/dL Hct (37-47) % MCV (80-100) fL MCH (25-34) pg MCHC (32-36) g/dL RDW Std Deviation (36.4-46.3) fL RDW Coeff of Spenser (11.5-14.5) % Plt Count (130-400) K/uL MPV (7.4-10.4) fL Immature Gran % (Auto) % Neut % (Auto) % Lymph % (Auto) % [place] % (Auto) % Eos % (Auto) % Baso % (Auto) % Immature Gran # (Auto) (0.00-0.02) K/uL Neut # (Auto) (1.4-6.5) K/uL Lymph # (Auto) (1.2-3.4) K/uL [place] # (Auto) (0.11-0.59) K/uL Eos # (Auto) (0-0.5) K/uL Baso # (Auto) (0-0.2) K/uL Dohle Bodies Echinocytes PT (9.0-12.0) Seconds INR (0.9-1.1) Sodium (136-145) mmol/L Potassium (3.5-5.1) mmol/L Chloride (98-107) mmol/L Carbon Dioxide (21-32) mmol/L Anion Gap (3-11) BUN (7-18) mg/dl Creatinine (0.6-1.2) mg/dl Est Cr Clr Drug Dosing ml/min Est GFR ( Amer) Est GFR (Non-Af Amer) BUN/Creatinine Ratio (10-20) Glucose (70-99) mg/dl POC Glucose 142 H (70-99) Lactate 2.6 H* (0.4-2.0) mmol/L Calcium (8.5-10.1) mg/dl Phosphorus (2.5-4.9) mg/dl Magnesium (1.8-2.4) mg/dl Total Bilirubin (0.2-1) mg/dl Direct Bilirubin (0-0.2) mg/dl AST (15-37) U/L ALT (12-78) U/L Alkaline Phosphatase (45-117) U/L Total Protein (6.4-8.2) gm/dl Albumin (3.4-5.0) gm/dl Procalcitonin (0-0.5) ng/ml Urine Color Yellow Urine Appearance Clear (Clear) Urine pH 5.0 (4.5-7.5) Ur Specific [place] 1.014 (1.000-1.030) Urine Protein Negative (Negative) Urine Glucose (UA) Negative (Negative) Urine Ketones Negative (Negative) Urine Blood Negative (Negative) Urine Nitrite Negative (Negative) Urine Bilirubin Negative (Negative) Urine Urobilinogen Negative (Negative) Ur Leukocyte Esterase Negative (Negative) Nasal Screen MRSA (PCR) (Negative) Random Vancomycin mcg/ml 04/24/19 04/24/19 04/24/19 Range/Units 04:24 04:24 04:24 WBC (4.8-10.8) K/uL RBC (4.2-5.4) M/uL Hgb (12.0-16.0) g/dL Hct (37-47) % MCV (80-100) fL MCH (25-34) pg MCHC (32-36) g/dL RDW Std Deviation (36.4-46.3) fL RDW Coeff of Spenser (11.5-14.5) % Plt Count (130-400) K/uL MPV (7.4-10.4) fL Immature Gran % (Auto) % Neut % (Auto) % Lymph % (Auto) % [place] % (Auto) % Eos % (Auto) % Baso % (Auto) % Immature Gran # (Auto) (0.00-0.02) K/uL Neut # (Auto) (1.4-6.5) K/uL Lymph # (Auto) (1.2-3.4) K/uL [place] # (Auto) (0.11-0.59) K/uL Eos # (Auto) (0-0.5) K/uL Baso # (Auto) (0-0.2) K/uL Dohle Bodies Echinocytes PT (9.0-12.0) Seconds INR (0.9-1.1) Sodium 138 (136-145) mmol/L Potassium 3.1 L (3.5-5.1) mmol/L Chloride 109 H (98-107) mmol/L Carbon Dioxide 17 L (21-32) mmol/L Anion Gap 12.0 H (3-11) BUN 17 (7-18) mg/dl Creatinine 1.58 H D (0.6-1.2) mg/dl Est Cr Clr Drug Dosing 26.4 ml/min Est GFR ( Amer) 44.4 Est GFR (Non-Af Amer) 38.3 BUN/Creatinine Ratio 10.9 (10-20) Glucose 47 L* (70-99) mg/dl POC Glucose (70-99) Lactate (0.4-2.0) mmol/L Calcium 7.4 L (8.5-10.1) mg/dl Phosphorus 3.9 (2.5-4.9) mg/dl Magnesium 1.0 L (1.8-2.4) mg/dl Total Bilirubin 0.9 (0.2-1) mg/dl Direct Bilirubin 0.4 H (0-0.2) mg/dl AST 15 (15-37) U/L ALT 11 L (12-78) U/L Alkaline Phosphatase 79 (45-117) U/L Total Protein 5.5 L (6.4-8.2) gm/dl Albumin 3.0 L (3.4-5.0) gm/dl Procalcitonin 17.15 H (0-0.5) ng/ml Urine Color Urine Appearance (Clear) Urine pH (4.5-7.5) Ur Specific [place] (1.000-1.030) Urine Protein (Negative) Urine Glucose (UA) (Negative) Urine Ketones (Negative) Urine Blood (Negative) Urine Nitrite (Negative) Urine Bilirubin (Negative) Urine Urobilinogen (Negative) Ur Leukocyte Esterase (Negative) Nasal Screen MRSA (PCR) (Negative) Random Vancomycin 19.9 mcg/ml 04/24/19 04/24/19 04/24/19 Range/Units 04:24 04:24 00:12 WBC 24.47 H (4.8-10.8) K/uL RBC 3.01 L (4.2-5.4) M/uL Hgb 9.1 L (12.0-16.0) g/dL Hct 26.6 L (37-47) % MCV 88.4 (80-100) fL MCH 30.2 (25-34) pg MCHC 34.2 (32-36) g/dL RDW Std Deviation 57.0 H (36.4-46.3) fL RDW Coeff of Spenser 17.8 H (11.5-14.5) % Plt Count 280 (130-400) K/uL MPV 10.3 (7.4-10.4) fL Immature Gran % (Auto) 1.1 % Neut % (Auto) 86.8 % Lymph % (Auto) 4.9 % [place] % (Auto) 7.2 % Eos % (Auto) 0.0 % Baso % (Auto) 0.0 % Immature Gran # (Auto) 0.27 H (0.00-0.02) K/uL Neut # (Auto) 21.23 H (1.4-6.5) K/uL Lymph # (Auto) 1.19 L (1.2-3.4) K/uL [place] # (Auto) 1.76 H (0.11-0.59) K/uL Eos # (Auto) 0.01 (0-0.5) K/uL Baso # (Auto) 0.01 (0-0.2) K/uL Dohle Bodies 1+ Echinocytes 1+ PT 26.8 H (9.0-12.0) Seconds INR 2.8 H (0.9-1.1) Sodium (136-145) mmol/L Potassium (3.5-5.1) mmol/L Chloride (98-107) mmol/L Carbon Dioxide (21-32) mmol/L Anion Gap (3-11) BUN (7-18) mg/dl Creatinine (0.6-1.2) mg/dl Est Cr Clr Drug Dosing ml/min Est GFR ( Amer) Est GFR (Non-Af Amer) BUN/Creatinine Ratio (10-20) Glucose (70-99) mg/dl POC Glucose (70-99) Lactate (0.4-2.0) mmol/L Calcium (8.5-10.1) mg/dl Phosphorus (2.5-4.9) mg/dl Magnesium (1.8-2.4) mg/dl Total Bilirubin (0.2-1) mg/dl Direct Bilirubin (0-0.2) mg/dl AST (15-37) U/L ALT (12-78) U/L Alkaline Phosphatase (45-117) U/L Total Protein (6.4-8.2) gm/dl Albumin (3.4-5.0) gm/dl Procalcitonin (0-0.5) ng/ml Urine Color Urine Appearance (Clear) Urine pH (4.5-7.5) Ur Specific [place] (1.000-1.030) Urine Protein (Negative) Urine Glucose (UA) (Negative) Urine Ketones (Negative) Urine Blood (Negative) Urine Nitrite (Negative) Urine Bilirubin (Negative) Urine Urobilinogen (Negative) Ur Leukocyte Esterase (Negative) Nasal Screen MRSA (PCR) Positive A (Negative) Random Vancomycin mcg/ml 04/23/19 Range/Units 19:11 WBC (4.8-10.8) K/uL RBC (4.2-5.4) M/uL Hgb (12.0-16.0) g/dL Hct (37-47) % MCV (80-100) fL MCH (25-34) pg MCHC (32-36) g/dL RDW Std Deviation (36.4-46.3) fL RDW Coeff of Spenser (11.5-14.5) % Plt Count (130-400) K/uL MPV (7.4-10.4) fL Immature Gran % (Auto) % Neut % (Auto) % Lymph % (Auto) % [place] % (Auto) % Eos % (Auto) % Baso % (Auto) % Immature Gran # (Auto) (0.00-0.02) K/uL Neut # (Auto) (1.4-6.5) K/uL Lymph # (Auto) (1.2-3.4) K/uL [place] # (Auto) (0.11-0.59) K/uL Eos # (Auto) (0-0.5) K/uL Baso # (Auto) (0-0.2) K/uL Dohle Bodies Echinocytes PT (9.0-12.0) Seconds INR (0.9-1.1) Sodium (136-145) mmol/L Potassium (3.5-5.1) mmol/L Chloride (98-107) mmol/L Carbon Dioxide (21-32) mmol/L Anion Gap (3-11) BUN (7-18) mg/dl Creatinine (0.6-1.2) mg/dl Est Cr Clr Drug Dosing ml/min Est GFR ( Amer) Est GFR (Non-Af Amer) BUN/Creatinine Ratio (10-20) Glucose (70-99) mg/dl POC Glucose (70-99) Lactate (0.4-2.0) mmol/L Calcium (8.5-10.1) mg/dl Phosphorus (2.5-4.9) mg/dl Magnesium (1.8-2.4) mg/dl Total Bilirubin (0.2-1) mg/dl Direct Bilirubin (0-0.2) mg/dl AST (15-37) U/L ALT (12-78) U/L Alkaline Phosphatase (45-117) U/L Total Protein (6.4-8.2) gm/dl Albumin (3.4-5.0) gm/dl Procalcitonin (0-0.5) ng/ml Urine Color Urine Appearance (Clear) Urine pH (4.5-7.5) Ur Specific [place] (1.000-1.030) Urine Protein (Negative) Urine Glucose (UA) (Negative) Urine Ketones (Negative) Urine Blood (Negative) Urine Nitrite (Negative) Urine Bilirubin (Negative) Urine Urobilinogen (Negative) Ur Leukocyte Esterase (Negative) Nasal Screen MRSA (PCR) (Negative) Random Vancomycin 27.0 mcg/ml (1) Cirrhosis of liver Ascites presence: with ascites Hepatic cirrhosis type: alcoholic cirrhosis Qualified Code(s): K70.31 - Alcoholic cirrhosis of liver with ascites
[2019-04-24] MEDS: ALBUMIN 25% 200 ML IV SCH (10:04)
[2019-04-24] MEDS: fentaNYL citrate 100 MCG/2 ML VIAL IV PRN ×3 (10:57→20:58)
[2019-04-24] MEDS ORDERED: VANCOMYCIN TROUGH ONE (14:30)
[2019-04-24 16:44] LABS: BUN Creatinine Ratio 10.4 (10-20); Calcium 7.7 mg/dl (8.5-10.1); Creatinine Clr Calc Pharmacy 23.5 ml/min; Est GFR (African American) 42.1; Est GFR (Non-African American) 36.3; Magnesium 4.8 mg/dl (1.8-2.4); Phosphorus 3.5 mg/dl (2.5-4.9); Potassium 3.9 mmol/L (3.5-5.1)
[2019-04-24] MEDS: NOREPINEPHRINE BIT INJ 8 MG in DEXTROSE 5% 500 ML IV SCH (19:54)
[2019-04-24 20:47] LABS: Hematocrit (blood only) 24.7 % (37-47); Hemoglobin 8.4 g/dL (12.0-16.0); Platelet Count 274 K/uL (130-400); RDW Coefficient of Variation 18.2 % (11.5-14.5); RDW Standard Deviation 57.5 fL (36.4-46.3); Red Blood Count 2.84 M/uL (4.2-5.4); White Blood Count 27.72 K/uL (4.8-10.8)
[2019-04-24] MEDS ORDERED: RAPID SEQUENCE INDUCTION BAG ONE (20:50)
[2019-04-24] MEDS ORDERED: SODIUM CHLORIDE 0.9% 250 ML IV PRN ×2 (20:50→22:39)
[2019-04-24] MEDS ORDERED: FAMOTIDINE 20 MG TAB PO SCH (21:00)
[2019-04-24] MEDS ORDERED: FAMOTIDINE 20 MG in SYRINGE 3 ML IV SCH (21:00)
[2019-04-24 21:03] LABS: INR 2.2 (0.9-1.1)
[2019-04-24 21:04] LABS: Basophils # (auto) 0.02 K/uL (0-0.2); Basophils % (auto) 0.1 %; Echinocytes 2+; Immature Granulocytes # (auto) 0.62 K/uL (0.00-0.02); Immature Granulocytes % (auto) 2.2 %; Lymphocytes # (auto) 1.59 K/uL (1.2-3.4); Lymphocytes % (auto) 5.7 %; Monocytes # (auto) 1.88 K/uL (0.11-0.59); Monocytes % (auto) 6.8 %; Neutrophils # (auto) 23.61 K/uL (1.4-6.5); Neutrophils % (auto) 85.2 %
[2019-04-24 21:05] LABS: Gastric Occult Blood Positive (Negative); pH Gastric Fluid 4
[2019-04-24] MEDS ORDERED: ONDANSETRON INJ 2 MG/ML 2 ML VIAL IV PRN (21:05)
[2019-04-24 21:07] LABS: Albumin Level 3.3 gm/dl (3.4-5.0); BUN Creatinine Ratio 10.9 (10-20); Bilirubin Direct 0.4 mg/dl (0-0.2); Calcium 7.9 mg/dl (8.5-10.1); Creatinine Clr Calc Pharmacy 24.1 ml/min; Est GFR (African American) 43.4; Est GFR (Non-African American) 37.4; Potassium 3.7 mmol/L (3.5-5.1)
[2019-04-24 21:10] LABS: Total Protein 5.6 gm/dl (6.4-8.2)
[2019-04-24] MEDS: ONDANSETRON INJ 2 MG/ML 2 ML VIAL IV PRN (21:10)
[2019-04-24] MEDS ORDERED: OCTREOTIDE ACETATE 500 MCG in 0.9 % SODIUM CHLORIDE 100 ML IV SCH (21:15)
--- NOTE | 2019-04-24 21:32 | Communication Note ---
Date of Service: April 24, 2019 [place] was called this evening with regard to Ms. Nunn she underwent an upper endoscopy approximately 2 weeks ago with several large ulcers 1 of which was in the gastric antrum. This evening she has gross hematemesis and was urgently intubated. She has a history of cirrhosis and it appears to be developing hepatorenal syndrome. Given the context of her recent medical history, severity of illness and recent endoscopic evaluations I would highly recommend referral to a tertiary center this evening.
--- NOTE | 2019-04-24 21:37 | Emergency Department Note ---
ED Visit Note I was called to the patient's bedside by Sumanth Ang PA-C who is covering the ICU. Patient began vomiting blood and required a secured airway. This procedure was considered emergent. Endotracheal Intubation Indication hematemesis The patient was on 100% oxygen via NRB prior to the procedure. Suction, airway equipment, RSI drugs, respiratory equipment, and appropriate personnel were prepared prior to the initiation of the procedure. A time out was taken. Induction was performed with 50 mg of IV succinylcholine and 10 mg of IV etomidate. After observing the clinical benefit of the medications, the airway was easily visualized utilizing a 4.0 MAC blade. A 7.5 size ETT tube was placed atraumatically to 19 cm using standard technique. The cuff inflated without signs of malfunction. There were bilateral breath sounds, positive colormetric change, no gastric sounds, a good capnography waveform, and post procedure pulse oximetry was 96 %. Post intubation sedation and paralysis per ICU. There were no complications. Please refer to Sumanth Ang PA-C's notes for further details. . : Fever Qualifiers: Fever type: unspecified Qualified Code(s): R50.9 - Fever, unspecified Cirrhosis of liver Qualifiers: Hepatic cirrhosis type: alcoholic cirrhosis Ascites presence: with ascites Qualified Code(s): K70.31 - Alcoholic cirrhosis of liver with ascites
--- NOTE | 2019-04-24 21:47 | XRay Report ---
XR chest 1V portable CLINICAL HISTORY: Intubation. COMPARISON STUDY: Chest radiograph April 23, 2019. FINDINGS: The tip of the endotracheal tube is 2.8 cm above the evert. Tip of right internal jugular central line projects over the proximal right atrium. There is no pneumothorax. Lung volumes are dimi nished. Bibasilar opacities are noted. There is no evidence for overt pulmonary edema. There is no pn eumothorax. No pleural effusion is identified. IMPRESSION: 1. Tip of endotracheal tube 2.8 cm above the evert. 2. Low lung volumes with bibasilar opacities which may reflect atelectasis or consolidation. Electronically signed by: Abisai Escalona M.D. 04/24/2019 9:46 PM
[2019-04-24] MEDS ORDERED: ALBUMIN 5% 250 ML IV ONE (21:53)
[2019-04-24] MEDS ORDERED: MIDAZOLAM HCL 5 MG/ML 1 ML VIAL IV STA ×2 (21:57→22:16)
--- NOTE | 2019-04-24 22:03 | History & Physical Bridge Note ---
Date of Service April 24, 2019 History & Physical Bridge Note I have examined the patient, reviewed the History & Physical and in the interval since the performance of the History & Physical I have noted the following changes of clinical significance: The patient has developed large volume hematemesis this evening and required rapid sequence intubation. She had a history of cirrhosis as a result of alcohol abuse and a number of large ulcers noted on upper endoscopy several weeks ago. Initially we thought referral to a tertiary center would be in the patient's best interest, the tertiary center felt that she should have a local upper endoscopy prior to referral. Physical examination Patient intubated sedated on a ventilator Abdomen: Tense ascites noted Impression: Patient with recurrent upper GI bleeding likely from the large ulcer that was seen several weeks ago. We are planning for urgent upper endoscopy this evening for further evaluation. If unable to stop the bleeding or localize it then I would highly recommend a referral to a tertiary center for angiographic support. Recommendations Protonix drip Octreotide drip Broad-spectrum antibiotics Urgent upper endoscopy (consent obtained from the patient's )
[2019-04-24] MEDS ORDERED: MIDAZOLAM HCL 1 MG/ML 2ML VIAL ONE ×2 (22:05→22:18)
--- NOTE | 2019-04-24 22:23 | Critical Care Progress Note ---
Date of Service April 24, 2019 Subjective At approximately 2030 Mrs. Nunn began to vomits bright red blood. She was started on octreotide drip and transfusion of RBCs x2 and FFP x2 was started. She was then intubated. We contacted [facility] for evaluation for TIPS. I spoke with the water server and GI physician with [facility] in which they did not recommends TIPS procedure at this time considering the patient's recent upper GI bleed from gastric ulcer and recommended that we perform an endoscope be to try to control the bleeding with [facility] GI from [facility]. He was then contacted and performed endoscopy at bedside in which he was unable to identify the source but thought it was most likely distal esophagus. He recommended transfer to tertiary center for embolization through IR. I recontacted [facility] in which the patient was excepted by and will now transfer to MICU in [place] for IR. Patient be transferred by [facility] considering the acuity of current illness. Results & Data Vital Signs (Past 12 Hours) Vital Signs Temp Pulse Resp BP Pulse Ox 04/24/19 21:49 76 17 98 04/24/19 21:34 76 18 123/87 94 04/24/19 21:14 73 16 96/65 L 94 04/24/19 20:00 66 27 H 95 04/24/19 19:30 36.5 C 71 22 94/60 L 93 04/24/19 19:00 69 27 H 99/55 L 94 04/24/19 18:30 66 22 94/59 L 92 04/24/19 18:00 67 18 89/50 L 92 04/24/19 17:30 71 22 82/51 L 93 04/24/19 17:00 67 23 92/55 L 94 04/24/19 16:30 70 23 81/50 L 94 04/24/19 16:00 69 19 91/51 L 92 04/24/19 15:30 36.7 C 67 22 74/54 L 92 04/24/19 14:01 70 21 95 04/24/19 14:00 70 26 H 92/54 L 94 04/24/19 13:30 70 25 H 87/52 L 94 04/24/19 13:01 66 21 93 04/24/19 13:00 70 24 90/60 L 94 04/24/19 12:31 70 22 92 07/15/19 12:30 66 21 89/58 L 94 04/24/19 12:01 36.5 C 71 22 93 04/24/19 12:00 72 21 95/62 L 93 04/24/19 11:31 74 20 93 04/24/19 11:30 61 18 89/56 L 92 04/24/19 11:01 58 L 18 94 04/24/19 11:00 58 L 18 98/61 L 94 04/24/19 10:31 70 25 H 96 04/24/19 10:30 70 25 H 96/63 L 96 PG Care Time/CCT Critical Care Time: Yes Total Critical Care Time: 120
--- NOTE | 2019-04-24 22:38 | Communication Note ---
Date of Service: April 24, 2019 The patient underwent urgent upper endoscopy this evening due to bright red emesis. She appears to have bleeding from the distal esophagus however we were not able to control the bleeding. The history is notable for a large ulcer in that region with no evidence of varices. Given this I think the patient may be best off by a referral to a tertiary center tonight as she may benefit from interventional radiology support. Recommendations Referral to a tertiary center Octreotide drip Ptotonix drip Broad-spectrum antibiotics
--- NOTE | 2019-04-24 23:22 | Procedure Note ---
Procedure Note Date of Service April 24, 2019 Procedure: Car Seat Maker Indwelling Peripherally Inserted IV Catheter Placement Attending: Dr. Herbert APC: Sumanth Ang PA-C Indication: Need for IV Access, Poor Vascular Access Anesthesia: None Verbal consent was obtained from patient prior to performing the procedure. A time-out was completed verifying correct patient, procedure, site, positioning, and implant(s) or special equipment if applicable. Utilizing bedside ultrasound, vascularity of the LEFT upper extremity was assessed. Vessel size was noted for appropriate catheter selection and skin was marked with gentle pressure. Patients LEFT upper extremity was prepped and draped in the usual sterile fashion utilizing chlorhexidine. Ultrasound guidance was used to aid needle placement. A 20 g Endurance Catheter was introduced into the LEFT Brachial vein under direct ultrasound guidance. Guide wire was easily deployed without resistance. Catheter was threaded over the guide wire without resistance and the entire apparatus was removed intact. Good venous blood return was noted in the catheter. The IV catheter was easily flushed with sterile saline flush. Sterile clave was attached to the end of the catheter and good blood return was again noted. Tourniquet was released. StatLock device and sterile dressing were applied. The patient tolerated the procedure well. Blood Loss: Minimal Complications: None Procedural Ultrasound Guidance: Procedure Date: 04/24/2019 Indication: Poor Vascular Access Attending: Dr. Herbert APC: Sumanth Ang PA-C Artery/Veins Identified: YES Access confirmed in Vein with ultrasound: YES Complications: NONE Patient tolerated procedure: WELL Coding CPT Codes Tubes, Drains, and Vasc Access - Tubes, Drains, and Vasc Access: Venipuncture, Age 3/>Req physician skill, (sep proc), Dx/Tx (not rout) ([id number])
[2019-04-24] MEDS ORDERED: Nursing to Pharmacy Communication ONE (23:42)
[2019-04-24] MEDS ORDERED: FUROSEMIDE 40 MG/4 ML VIAL IV STA (23:48)
[2019-04-24] MEDS ORDERED: FUROSEMIDE 40 MG/4 ML VIAL IV ONE (23:53)
--- NOTE | 2019-04-25 00:51 | Discharge Summary ---
Date of Service April 25, 2019 Admission HPI Per Admitting Provider Caveat. History Limited by - Patient is a vague historian and drowsy. Judi Nunn is a 48-year-old female with a past medical history of alcohol abuse, alcoholic cirrhosis, and ascites who was admitted for fever, abdominal pain, and concerns for SBP. Onset of illness was about 2 days ago per patient. She reported subjective fever, nausea without any coffee ground emesis, constant worsening abdominal pain. She denies any recent alcohol intake. In addition, she has had onset of blisters with erythema to bilateral lower extremities. When seen for evaluation in the ED for admission, patient had returned from radiology where 5L of fluid was drained via paracentesis. She noted improvement in pain. She most recently had several recent hospital stays here, with most recent 04/04/19- 04/11/19 for hematemesis, coffee-ground emesis, and hypotension. She required ICU admission for hypotension and recovered well following downgrade. Gastroduodenoscopy revealed a cratered esophageal ulcer, 3 nonbleeding gastric ulcers, and a prominent vessel which was injected with epinephrine for hemostasis. Judi has a history of chronic baseline hypertension with systolic pressures in the low 100s. She received 4 units of packed red blood cells at this visit. During her admission to the ICU she had to paracenteses performed with each removing 5 L of fluid. She was discharged home on Cipro for SBP prophylaxis. Further review of records show another recent admission to [facility] from 03/25- 03/30/2019 for low back pain and loose stools of 1-1/2 weeks duration, and was diagnosed with C. difficile colitis. She was discharged on vancomycin 125 mg p.o. 4 times daily. Judi had been seen by the care team several times in the past for admissions related to alcohol abuse and cirrhosis. But she maintains that she has been sober since beginning of March. In [facility] ED, course of care included but was not limited to: Rocephin 2gmx1 IV; Vancomycin 1gmx1 IV, Dialudid 0.5mg IV, IVFs NSS. Acetaminophen 650mg PO x1, Zofran 4mg IVx1 Discharge Data Consultations 04/22/19 16:01 ED Decision to Admit Stat 04/23/19 11:43 Consult Gastroenterology Routine 04/23/19 16:29 Consult Commercial Loan Administrator Routine 04/23/19 19:00 Consult Case Management - Discharge Planning Routine 04/24/19 08:56 Consult Patient Services Routine 04/24/19 11:08 Consult Nephrology Routine 04/24/19 22:39 Burn CD for patient Stat Procedures Performed Operation Date: 04/24/19 21:55 <No data on this case meets the specified criteria>
[2019-04-25] MEDS ORDERED: CASPOFUNGIN 35 MG in SODIUM CHLORIDE 0.9% 250 ML IV SCH (09:00)
[2019-04-25] MEDS ORDERED: ALBUMIN 25% 100 ML IV SCH (09:00)
--- NOTE | 2019-04-28 06:25 | Coding Query ---
CODING QUERY To promote full compliance with coding requirements relating to patient care, provider participation is requested in all cases of trial attorney uncertainty. Please assist us with the question(s) below: Coding Question(s): Patient with alcoholic cirrhosis and ascites admitted with fever,abdominal pain that had persisted several days prior to admission. Paracentesis done upon admission. Pt transferred to ICU for hypotension and blood pressure support/vasopressors. Patient subsequently transferred to another acute care hospital after developing hemoptysis requiring interventional radiology . H/P/ Progress note documents Sepsis/Hepatorenal sydrome. Please document, if known or suspected, the diagnosis responsible for this Inpatient stay and transfer to another acute care facility. Thanks for your assistance. John Gan [facility] Physician's Response(s): Patient was transferred for higher level of services requiring possible interventional radiology which we are unable to perform here Principal Diagnosis: "that condition established after study, to be chiefly responsible for occasioning the admission of the patient to the hospital for care." Co-Existing Principal Diagnosis: "when two or more diagnoses equally meet the criteria for principal diagnosis as determined by the circumstances of admission, diagnostic work up, and/or therapy provided, and the Alphabetic Index, Tabular List, or another coding guideline does not provide sequencing direction, any one of the diagnoses may be sequenced first." "When the physician has documented what appears to be a current diagnosis in the body of the record, but has not included the diagnosis in the final diagnostic statement, the physician should be asked whether the diagnosis should be added." (Source [facility]oding [facility] 2 QTR90. p3-4) EMILY
--- NOTE | 2019-05-01 16:04 | GI REPORT ---
Patient Name: Judi Nunn Procedure Date: 04/24/2019 10:06 PM Date of : 1970 Admit Type: Inpatient Age: 48 Gender: Female Attending MD: Zaira Keating DO Procedure: Upper GI endoscopy Providers: Zaira Kaeting DO Referring MD: Julio Stanley MD Indications: Hematemesis Medicines: sedation given by ICU service See ICU Notes Complications: No immediate complications. Estimated blood loss: Minimal. Estimated Blood Loss: Estimated blood loss was minimal. Procedure: Pre-Anesthesia Assessment: - Prior to the procedure, a History and Physical was performed, and patient medications, allergies and sensitivities were reviewed. The patient's tolerance of previous anesthesia was reviewed. - The risks and benefits of the procedure and the sedation options and risks were discussed with the patient. All questions were answered and informed consent was obtained. - Patient identification and proposed procedure were verified prior to the procedure by the physician and the nurse. The procedure was verified in the procedure room. - Pre-procedure physical examination revealed no contraindications to sedation. - ASA Grade Assessment: IV - A patient with severe systemic disease that is a constant threat to life. - After reviewing the risks and benefits, the patient was deemed in satisfactory condition to undergo the procedure. - The anesthesia plan was to use moderate sedation/analgesia (conscious sedation). - Immediately prior to administration of medications, the patient was re-assessed for adequacy to receive sedatives. - The heart rate, respiratory rate, oxygen saturations, blood pressure, adequacy of pulmonary ventilation, and response to care were monitored throughout the procedure. - The physical status of the patient was re-assessed after the procedure. After obtaining informed consent, the endoscope was passed under direct vision. Throughout the procedure, the patient's blood pressure, pulse, and oxygen saturations were monitored continuously. The Scope was introduced through the mouth, and advanced to the prepyloric region, stomach. The upper GI endoscopy was accomplished without difficulty. The patient tolerated the procedure well. Findings: Red blood was found in the lower third of the esophagus. Area was unsuccessfully injected with 3 mL of a 1:10,000 solution of epinephrine for hemostasis. Despite this we could not adequatly see or identify a site. Her prior EGD from late March was notable for an esophageal ulcer (no varices), likely site of bleeding. Red blood was found in the entire examined stomach. Despite copious irrigation we could not identify the pylorur or a bleeding site. Impression: - Red blood in the lower third of the esophagus. Treatment not successful. - Red blood in the entire stomach. - No specimens collected. Recommendation: - Consider referral to tertiary center by managing physician. - Patient may benefit from IR evalaution (emboliation) - Continue protonix drip, Octreotide drip and broad spectrum antibiotics. Zaira Keating DO 05/01/2019 4:04:52 PM Note Initiated On: 04/24/2019 10:06 PM Number of Addenda: 0 I attest to the content of the Intraoperative Record and orders documented therein, exceptions below {[id number]}
== END 2019-04-25 00:59 | disposition short-term general hospital (02) | DRG 871 ==
LOC: ED 12:52 → SUATTDRO 17:41 → 2W 17:41 → 2S 22:25 → 1E 04-23 16:30